=== PATIENT | female | born 1930 | race Caucasian/White ===

== ENCOUNTER → 2017-01-12 | Outpatient (CLI) | payer BC ==
[~2017-01-12] MED LIST: AMLO-110 PO; ASPI81TA28 PO; ATOR-22 PO; ATOR-24 PO; BENA1TAB53 PO; BROM0.07 OPB; CHOL100010 PO; CHOL100041 PO; CYAN10004 PO; DOCU-94 PO; DPH/ PO; FURO-85 PO; HYDC25 PO; HYDR-5688 PO; HYDR25TA4 PO; INSDGI SC; INSDGIPEN SQ; LEVO75TA33 PO; LEVO75TA5 PO; MULT-190 PO; MULTCAP98 PO; NAPR1TAB9 PO; OMEG10007 PO; POLYSOL4 OP; PRED10TA PO; ROPI0.25 PO; ROPI0.5T15 PO; ROPI1TAB PO
[2017-01-12 13:25] LABS: URINE APPEARANCE CLEAR (CLEAR); URINE BILIRUBIN NEG (NEG); URINE COLOR YELLOW; URINE EPITHELIAL CELL AUTO 0-5 /lpf (0-5); URINE NITRITE NEG (NEG); UROBILINOGEN NEG (NEG)
[2017-01-12 13:26] LABS: MANUAL MICROSCOPIC REQUIRED? NO; REVIEW REQ? NO
== END | disposition home or self-care (01) ==
LOC: C.LABSPEC 08:55
PROVIDERS: ATTEND Internal Medicine
DX: R39.9 Unspecified symptoms and signs involving the genitourinary system (principal)

== ENCOUNTER → 2017-01-21 | Outpatient (CLI) | payer BC ==
[2017-01-21 14:23] LABS: URINE APPEARANCE CLEAR (CLEAR); URINE BILIRUBIN NEG (NEG); URINE COLOR YELLOW; URINE EPITHELIAL CELL AUTO >30 /lpf (0-5); URINE NITRITE NEG (NEG); URINE PH 6.5 (4.5-7.5); URINE SPECIFIC GRAVITY 1.016 (1.000-1.030); UROBILINOGEN NEG (NEG)
[2017-01-21 14:28] LABS: MANUAL MICROSCOPIC REQUIRED? NO; REVIEW REQ? NO
== END | disposition home or self-care (01) ==
LOC: C.LABBC 11:24
PROVIDERS: ATTEND Physician Assistant Medical
DX: R39.9 Unspecified symptoms and signs involving the genitourinary system (principal)

== ENCOUNTER → 2017-02-06 | Outpatient (CLI) | payer BC ==
[2017-02-06 17:20] LABS: BASO % 0.4 %; BASO ABS # 0.03 K/uL (0-0.2); COMPLETE YES; EOS % 3.6 %; HEMATOCRIT 39.8 % (37-47); IG% 0.1 %; LYMPH % 30.7 %; LYMPH ABS # 2.49 K/uL (1.2-3.4); MEAN CELL VOLUME 95.4 fL (80-100); MEAN CORPUSCULAR HEMOGLOBIN 31.9 pg (25-34); MEAN CORPUSCULAR HGB CONC 33.4 g/dl (32-36); MEAN PLATELET VOLUME 11.2 fL (7.4-10.4); MONO % 8.4 %; NEUT % 56.8 %; PLATELET COUNT 279 K/uL (130-400); RED BLOOD COUNT 4.17 M/uL (4.2-5.4)
[2017-02-06 18:12] LABS: ALT/SGPT 31 U/L (12-78); AST/SGOT 24 U/L (15-37); BLOOD UREA NITROGEN 28 mg/dl (7-18); BUN/CREATININE RATIO 22.9 (10-20); CARBON DIOXIDE 30 mmol/L (21-32); CHLORIDE 107 mmol/L (98-107); GLUCOSE 189 mg/dl (70-99); SODIUM 145 mmol/L (136-145)
[2017-02-06 18:14] LABS: ALB/GLOB RATIO 0.9 (0.9-2); ALKALINE PHOSPHATASE 71 U/L (45-117)
[2017-02-06 18:33] LABS: CALCIUM 9.2 mg/dl (8.5-10.1)
[2017-02-07 06:07] LABS: ESTIMATED AVERAGE GLUCOSE 146 mg/dl; HA1C FLAG Normal (Normal)
== END | disposition home or self-care (01) ==
LOC: C.LABBC 14:52
PROVIDERS: ATTEND Internal Medicine Geriatric Medicine
DX: E03.9 Hypothyroidism, unspecified (principal); I10 Essential (primary) hypertension; E78.5 Hyperlipidemia, unspecified; E11.40 Type 2 diabetes mellitus with diabetic neuropathy, unspecified; G62.9 Polyneuropathy, unspecified; E55.9 Vitamin D deficiency, unspecified

== ENCOUNTER → 2017-05-09 | Outpatient (CLI) | payer BC ==
[~2017-05-09] MED LIST changes: -ATOR-22 PO; +BENA1TAB19 PO; -BENA1TAB53 PO; -CHOL100041 PO; -DOCU-94 PO; -FURO-85 PO; -HYDR-5688 PO; -HYDR25TA4 PO; -INSDGIPEN SQ; -LEVO75TA5 PO; -NAPR1TAB9 PO; -PRED10TA PO; -ROPI0.5T15 PO; -ROPI1TAB PO
[2017-05-09 16:48] LABS: BLOOD UREA NITROGEN 27 mg/dl (7-18); CALCIUM 9.1 mg/dl (8.5-10.1); CARBON DIOXIDE 29 mmol/L (21-32); CHLORIDE 108 mmol/L (98-107); GLUCOSE 87 mg/dl (70-99); POTASSIUM 4.1 mmol/L (3.5-5.1); SODIUM 142 mmol/L (136-145)
[2017-05-09 16:51] LABS: ESTIMATED AVERAGE GLUCOSE 143 mg/dl; HA1C FLAG Normal (Normal)
== END | disposition home or self-care (01) ==
LOC: C.LABBC 14:19
PROVIDERS: ATTEND Family Medicine
DX: E11.40 Type 2 diabetes mellitus with diabetic neuropathy, unspecified (principal); E03.9 Hypothyroidism, unspecified; E78.5 Hyperlipidemia, unspecified; I10 Essential (primary) hypertension

== ENCOUNTER 2017-07-18 02:20 | Emergency (ER) | payer BC ==
[~2017-07-18] VITALS: Ht 160 cm; Wt 59.3 kg
[~2017-07-18 02:20] MED LIST changes: -BENA1TAB19 PO; +BENA1TAB53 PO
[2017-07-18 02:23] VITALS: TEMP 37; Ht 160 cm; Wt 59.3 kg
[2017-07-18] MEDS ORDERED: FENTANYL CITRATE INJ 50 MCG/1 ML 2 ML VIAL IV STA (02:38)
--- NOTE | 2017-07-18 02:47 | EMERGENCY ROOM VISIT NOTE ---
History Report prepared by Sumeet: Sun Campos Under the Supervision of: Dr. Gunjan Shepard M.D. First contact with patient: 02:27 Chief Complaint: WRIST PAIN Stated Complaint: BILATERAL WRIST/HAND PAIN History of Present Illness The patient is a 86 year old female who presents to the Emergency Room with complaints of sudden bilateral wrist pain occurring shortly prior to arrival. The patient rates the pain at an 8/10. She reports that moving her wrists exacerbates the pain. She also reports having a stiff neck. The patient states that she has seen her PCP 1 month ago for this pain and that she was told to take Aleve for 2 weeks. The patient reports that she did play golf in the summer , but not recently, and also denies activities such as knitting and sewing. She states that she has insulin dependent diabetes mellitus, neuropathy, and has a history of an aortic valve replacement in November of 2015. The patient also reports that she takes blood pressure medication and is on Aspirin. Source of History: patient Onset: shortly prior to arrival Position: wrist (bilateral) Symptom Intensity: rated at an 8/10 Modifying Factors (Worsening): movement Associated Symptoms: + neck pain (stiff neck ) Review of Systems See HPI for pertinent positives & negatives. A total of 10 systems reviewed and were otherwise negative. Past Medical & Surgical Medical Problems: (1) Insulin dependent diabetes mellitus (2) Neuropathy Surgical Problems: (1) Aortic valve replaced Family History Diabetes mellitus FH: hypertension Heart disease Social History Smoking Status: Never Smoker Marital Status: Current/Historical Medications Scheduled Amlodipine (Norvasc), 5 MG PO HS Aspirin (Aspirin Ec), 81 MG PO HS Atorvastatin (Lipitor), 20 MG PO DAILY Benazepril (Lotensin), 20 MG PO DAILY Bromfenac Sodium (Ophth) (Prolensa), 1 DROP OPB QAM Cholecalciferol (Vitamin D), 3,000 INTER.UNIT PO DAILY Cyanocobalamin (Vitamin B-12 1000 Mcg), 2,000 MCG PO DAILY Diphenoxylate/Atropine (Lomotil 2.5-0.025 mg), 1 TAB PO QID Docusate Sodium (Colace), 1 CAP PO BID Hydrochlorothiazide (Hctz), 25 MG PO DAILY Insulin Glargine (Lantus Solostar), 12 UNITS SQ QAM Insulin Glargine (Lantus Solostar), 10 UNITS SQ QPM Levothyroxine Sodium (Levothyroxine Sodium), 75 MCG PO DAILY Multiple Vitamins W/ Minerals (Icaps), 1 CAP PO DAILY Ocuvite Preservision (Ocuvite Preservision), 1 TAB PO DAILY Polyethylene Glycol-Propylene (Systane), 1 DROPS OP QPM Prednisone (Prednisone), 10 MG PO DIRECTED Ropinirole (Requip), 1 MG PO QPM Ropinirole (Requip), 0.5 MG PO QAFTERNOON Scheduled PRN Hydrocodone/Acetaminophen 5MG/325MG ([place] 5MG/325MG), 1 TABLET PO Q6 PRN for Pain Allergies Coded Allergies: No Known Allergies (Unverified Allergy, Mild, 08/28/08) Physical Exam Vital Signs Date Time Temp Pulse Resp B/P (MAP) Pulse Ox O2 Delivery O2 Flow Rate FiO2 07/18/17 06:08 86 20 155/86 92 07/18/17 05:31 100 141/106 96 Room Air 07/18/17 03:51 80 138/63 96 Room Air 07/18/17 02:23 37.0 100 32 174/78 93 Room Air Physical Exam Vital signs reviewed. General: Well-appearing female, in no significant distress. HEENT: No scleral icterus, PERRLA, neck supple. Atraumatic. Cardiovascular: Systolic click, no extra sounds. Pulmonary: Clear to auscultation bilaterally, normal work of breathing. Abdomen: Soft, nontender, nondistended, positive bowel sounds. Musculoskeletal: Atraumatic, no peripheral edema. Bilateral wrists with mild swelling. Right wrist has mild erythema and swelling to the second and third MCP. Full range of motion of wrist with mild tenderness. Left wrist has mild soft tissue swelling and mild tenderness. No point tenderness, no deformity. Neurologic: Patient awake alert and oriented x 3, full strength in all 4 extremities. Cranial nerves 2 through 12 grossly intact. Skin: Warm, dry, no rash Medical Decision & Procedures ER Provider Diagnostic Interpretation: Radiology results as stated below per my review and radiologist interpretation: Bilateral Wrist X-Ray: No acute fracture. Degenerative changes noted. Mild soft tissue swelling. No dislocation. Laboratory Results 07/18/17 03:05 Red Blood Count 4.03, Mean Corpuscular Volume 92.6, Mean Corpuscular Hemoglobin 31.8, Mean Corpuscular Hemoglobin Concent 34.3, Mean Platelet Volume 10.1, Neutrophils (%) (Auto) 81.9, Lymphocytes (%) (Auto) 8.6, Monocytes (%) (Auto) 7.9, Eosinophils (%) (Auto) 1.1, Basophils (%) (Auto) 0.2, Neutrophils # (Auto) 11.57, Lymphocytes # (Auto) 1.21, Monocytes # (Auto) 1.12, Eosinophils # (Auto) 0.15, Basophils # (Auto) 0.03 07/18/17 03:05 Test 07/18/17 03:05 White Blood Count 14.12 K/uL (4.8-10.8) Red Blood Count 4.03 M/uL (4.2-5.4) Hemoglobin 12.8 g/dL (12.0-16.0) Hematocrit 37.3 % (37-47) Mean Corpuscular Volume 92.6 fL (80-100) Mean Corpuscular Hemoglobin 31.8 pg (25-34) Mean Corpuscular Hemoglobin Concent 34.3 g/dl (32-36) Platelet Count 345 K/uL (130-400) Mean Platelet Volume 10.1 fL (7.4-10.4) Neutrophils (%) (Auto) 81.9 % Lymphocytes (%) (Auto) 8.6 % Monocytes (%) (Auto) 7.9 % Eosinophils (%) (Auto) 1.1 % Basophils (%) (Auto) 0.2 % Neutrophils # (Auto) 11.57 K/uL (1.4-6.5) Lymphocytes # (Auto) 1.21 K/uL (1.2-3.4) Monocytes # (Auto) 1.12 K/uL (0.11-0.59) Eosinophils # (Auto) 0.15 K/uL (0-0.5) Basophils # (Auto) 0.03 K/uL (0-0.2) RDW Standard Deviation 48.3 fL (36.4-46.3) RDW Coefficient of Variation 14.2 % (11.5-14.5) Immature Granulocyte % (Auto) 0.3 % Immature Granulocyte # (Auto) 0.04 K/uL (0.00-0.02) Erythrocyte Sedimentation Rate 42 mm/hr (0-21) Anion Gap 9.0 mmol/L (3-11) Est Creatinine Clear Calc Drug Dose 38.2 ml/min Estimated GFR () 68.5 Estimated GFR (Non- 59.1 BUN/Creatinine Ratio 24.3 (10-20) Uric Acid 5.9 mg/dl (2.6-7.2) Calcium Level 8.9 mg/dl (8.5-10.1) Magnesium Level 1.7 mg/dl (1.8-2.4) Total Bilirubin 0.5 mg/dl (0.2-1) Direct Bilirubin 0.1 mg/dl (0-0.2) Aspartate Amino Transf (AST/SGOT) 23 U/L (15-37) Alanine Aminotransferase (ALT/SGPT) 30 U/L (12-78) Alkaline Phosphatase 84 U/L (45-117) C-Reactive Protein 1.57 mg/dl (0-0.29) Total Protein 7.0 gm/dl (6.4-8.2) Albumin 3.3 gm/dl (3.4-5.0) Lyme Disease IgG Antibody NEG (NEG) Lyme Disease IgM Antibody NEG (NEG) Laboratory results per my review. Medications Administered Medications (Trade) Dose Ordered Sig/David Route Start Time Stop Time Status Last Admin Dose Admin Fentanyl Citrate (Fentanyl Inj) 25 mcg NOW STAT IV 07/18/17 02:38 07/18/17 02:41 DC 07/18/17 03:11 25 MCG Methylprednisolone Sodium Succinate (Solu-Medrol IV) 60 mg NOW STAT IV 07/18/17 03:41 07/18/17 03:42 DC 07/18/17 03:48 60 MG Acetaminophen/ Hydrocodone Bitart ([place] 5/325 Tab) 1 tab NOW STAT PO 07/18/17 05:21 07/18/17 05:22 DC 07/18/17 05:29 1 TAB Acetaminophen/ Hydrocodone Bitart ([place] 5/325mg Home Pack) 1 homepack UD ONCE PO 07/18/17 05:30 07/18/17 05:31 DC 07/18/17 05:29 1 HOMEPACK ED Course 0236: Past medical records reviewed. The patient was evaluated in room A2. A complete history and physical examination was performed. 0238: Ordered Fentanyl Citrate 25 mcg IV. 0341: Ordered Methylprednisolone Sodium Succinate 60 mg IV. 0521: Ordered Hydrocodone Bitart/Acetaminophen 1 tab PO. 0530: Ordered Hydrocodone Bitart/Acetaminophen 1 homepack PO. 0540: Upon reevaluation, the patient appeared to have improvement of her symptoms. I discussed findings with her. She verbalized agreement of the treatment plan. She was discharged home. Medical Decision Differentials include: gout, lyme disease, trauma, fracture, cellulitis, septic joint, autoimmune disorder, and medication reaction. This patient was evaluated and appeared to be in no significant distress. Physical examination reveals mildly swollen bilateral wrists. Patient has some discomfort with range of motion. There is no traumatic injury. X-rays to my interpretation are negative for acute process. Laboratory work reveals a mildly elevated WBC, sedimentation rate and CRP. I do suspect this is a rheumatologic process. The patient is diabetic and the risks and benefits of steroid therapy were discussed. Patient will monitor her glucose carefully. Patient was given 60 mg of IV Solu-Medrol. She did respond well to 25 g of fentanyl. The patient complained of more pain shortly thereafter and was given a [place] tablet. Patient will be discharged on a short course of lower dose prednisone taper and [place] to be used as needed. Patient has a follow-up with her PCP in several days. She will return to the ER for worsening of symptoms, fever or any medical concerns. Medication Reconcilliation Current Medication List: was personally reviewed by me Blood Pressure Screening Patient's blood pressure: Elevated blood pressure Blood pressure disposition: Elevated BP felt to be situational Impression Primary Impression: Pain in both wrists Scribe Attestation The scribe's documentation has been prepared under my direction and personally reviewed by me in its entirety. I confirm that the note above accurately reflects all work, treatment, procedures, and medical decision making performed by me. Departure Information Dispostion Home / Self-Care Prescriptions Docusate Sodium (COLACE) 100 Mg Cap 1 CAP PO BID for 30 Days, #60 CAP 2 Refills Prov: Gunjan Shepard M.D. 07/18/17 Hydrocodone/Acetaminophen 5MG/325MG ([place] 5MG/325MG) Tab 1 TABLET PO Q6 Y for Pain, #14 TAB Prov: Gunjan Shepard M.D. 07/18/17 Prednisone (Prednisone) 10 Mg Tab 10 MG PO DIRECTED, #12 TAB 20 mg daily for 4 days, 10 mg daily for 3 days, 5 mg daily for 2 days. Prov: Gunjan Shepard M.D. 07/18/17 Referrals Lottie Winn MD (PCP) Forms HOME CARE DOCUMENTATION FORM, IMPORTANT VISIT INFORMATION, WORK / SCHOOL INSTRUCTIONS Patient Instructions My [facility] Additional Instructions Diagnosis: Bilateral wrist pain Prednisone 20 mg daily for 4 days, 10 mg daily for 3 days, 5 mg daily for 2 days. [place] one tablet every 6 hours as needed for severe pain. Do not drive or take Tylenol with this medication. Colace 100 mg twice daily as needed for stool softening while on [place]. Follow-up with Dr. Winn on Saturday as scheduled. Return to the ER for worsening of symptoms or any medical concerns.
[2017-07-18] MEDS ORDERED: LEVO75TA5 PO (03:14)
[2017-07-18 03:16] LABS: BASO % 0.2 %; BASO ABS # 0.03 K/uL (0-0.2); COMPLETE YES; EOS % 1.1 %; HEMATOCRIT 37.3 % (37-47); IG% 0.3 %; LYMPH % 8.6 %; LYMPH ABS # 1.21 K/uL (1.2-3.4); MEAN CELL VOLUME 92.6 fL (80-100); MEAN CORPUSCULAR HEMOGLOBIN 31.8 pg (25-34); MEAN CORPUSCULAR HGB CONC 34.3 g/dl (32-36); MEAN PLATELET VOLUME 10.1 fL (7.4-10.4); MONO % 7.9 %; NEUT % 81.9 %; PLATELET COUNT 345 K/uL (130-400); RED BLOOD COUNT 4.03 M/uL (4.2-5.4); WHITE BLOOD COUNT 14.12 K/uL (4.8-10.8)
[2017-07-18] MEDS ORDERED: HYDR25TA4 PO (03:16)
[2017-07-18] MEDS ORDERED: INSDGIPEN SQ ×2 (03:20→03:23)
[2017-07-18] MEDS ORDERED: ATOR-22 PO (03:29)
[2017-07-18 03:36] LABS: BUN/CREATININE RATIO 24.3 (10-20); CALCIUM 8.9 mg/dl (8.5-10.1); CREATININE 0.89 mg/dl (0.60-1.20); MAGNESIUM 1.7 mg/dl (1.8-2.4); POTASSIUM 3.9 mmol/L (3.5-5.1)
[2017-07-18 03:39] LABS: C-REACTIVE PROTEIN 1.57 mg/dl (0-0.29)
[2017-07-18] MEDS ORDERED: METHYLPREDNISOLONE 125 MG VIAL IV STA (03:41)
[2017-07-18 03:44] LABS: URIC ACID 5.9 mg/dl (2.6-7.2)
[2017-07-18] MEDS ORDERED: ROPI1TAB PO (03:53)
[2017-07-18] MEDS ORDERED: ROPI0.5T15 PO (03:54)
[2017-07-18 04:22] LABS: LYME DISEASE AB IGG NEG (NEG); LYME DISEASE AB IGM NEG (NEG)
[2017-07-18] MEDS ORDERED: HYDROCODONE/ACETAMOPHEN 5/325MG TAB PO STA (05:21)
[2017-07-18] MEDS ORDERED: NORCO 5/325MG HOME PACK PO ONE (05:30)
[2017-07-18] MEDS ORDERED: PRED10TA PO (05:50)
[2017-07-18] MEDS ORDERED: HYDR-5688 PO (05:50)
[2017-07-18] MEDS ORDERED: DOCU-94 PO (05:52)
[2017-07-18 06:08] VITALS: BP 155/86; PULSE 86; O2SAT 92
--- NOTE | 2017-07-18 06:56 | DIAGNOSTIC IMAGING REPORT ---
R WRIST MIN 3 VIEWS ROUTINE CLINICAL HISTORY: Right wrist pain COMPARISON: None. DISCUSSION: No acute fractures are visualized. There are moderate osteoarthritic changes the level the first carpal metacarpal joint. There is a small bony erosion involving the lunate. IMPRESSION: 1. Osteopenia 2. No acute fractures 3. Moderate arthritic changes at the level the first carpometacarpal joint 4. Small erosion involving the lunate Electronically signed by: Josh Simon M.D. 07/18/2017 6:54 AM Dictated Date/Time: 07/18/2017 6:53 AM
--- NOTE | 2017-07-18 07:08 | DIAGNOSTIC IMAGING REPORT ---
LEFT WRIST 4 VIEWS CLINICAL HISTORY: Left wrist pain. No reported history of trauma. FINDINGS: 4 views of left wrist are obtained. No prior studies are available for comparison at the time of dictation. The skeletal structures are osteopenic. No fracture is seen. There is mild narrowing at the radiocarpal articulation. Advanced osteoarthritic change is seen at the first carpometacarpal joint where there is bony sclerosis, overgrowth, subchondral cyst formation, and mild subluxation. Arthritic change is also seen at the second carpometacarpal joint. There is faint chondrocalcinosis of the triangular fibrocartilage. Soft tissue swelling is present around the wrist. No erosive disease is seen. IMPRESSION: 1. Soft tissue edema with no acute bony abnormality identified in the left wrist. 2. Osteopenia and arthritic change as above. Electronically signed by: Mook Carpio M.D. 07/18/2017 7:06 AM Dictated Date/Time: 07/18/2017 7:05 AM
== END 2017-07-18 06:10 | disposition home or self-care (01) ==
LOC: EDBD 02:20 → C.EDA 02:22
DX: M25.531 Pain in right wrist (principal); M25.532 Pain in left wrist; E11.40 Type 2 diabetes mellitus with diabetic neuropathy, unspecified; Z95.2 Presence of prosthetic heart valve; Z83.3 Family history of diabetes mellitus; Z82.49 Family history of ischemic heart disease and other diseases of the circulatory system; Z79.4 Long term (current) use of insulin; Z79.82 Long term (current) use of aspirin

== ENCOUNTER 2017-07-22 09:00 | Inpatient (IN) | payer BC, OTHER ==
[~2017-07-22] VITALS: Ht 160 cm; Wt 57.0 kg
[~2017-07-22 09:00] MED LIST changes: +ATOR-22 PO; -ATOR-24 PO; +DOCU-94 PO; -HYDC25 PO; +HYDR-5688 PO; +HYDR25TA4 PO; -INSDGI SC; +INSDGIPEN SQ; -LEVO75TA33 PO; +LEVO75TA5 PO; -OMEG10007 PO; +PRED10TA PO; -ROPI0.25 PO; +ROPI0.5T15 PO; +ROPI1TAB PO
[2017-07-22 10:09] LABS: BASO % 0.1 %; BASO ABS # 0.01 K/uL (0-0.2); COMPLETE YES; IG% 0.2 %; LYMPH % 26.6 %; LYMPH ABS # 2.86 K/uL (1.2-3.4); MEAN CELL VOLUME 93.3 fL (80-100); MEAN CORPUSCULAR HEMOGLOBIN 30.9 pg (25-34); MEAN CORPUSCULAR HGB CONC 33.1 g/dl (32-36); MEAN PLATELET VOLUME 10.4 fL (7.4-10.4); MONO % 9.7 %; NEUT % 61.4 %; PLATELET COUNT 359 K/uL (130-400); RED BLOOD COUNT 3.75 M/uL (4.2-5.4); WHITE BLOOD COUNT 10.76 K/uL (4.8-10.8)
[2017-07-22 10:27] LABS: BUN/CREATININE RATIO 36.2 (10-20); CALCIUM 8.8 mg/dl (8.5-10.1); CREATININE 1.15 mg/dl (0.60-1.20); POTASSIUM 3.9 mmol/L (3.5-5.1)
[2017-07-22 10:35] LABS: ALB/GLOB RATIO 0.9 (0.9-2)
[2017-07-22] MEDS ORDERED: OPTIRAY 320 IV PRN (10:45)
[2017-07-22] MEDS ORDERED: ASPIRIN 81 MG CHEW PO STA (10:53)
[2017-07-22] MEDS ORDERED: CHOL100041 PO (11:09)
[2017-07-22] MEDS ORDERED: NAPR1TAB9 PO (11:10)
--- NOTE | 2017-07-22 11:27 | DIAGNOSTIC IMAGING REPORT ---
CT ANGIOGRAPHY OF THE CHEST, PULMONARY EMBOLUS PROTOCOL CLINICAL HISTORY: Shortness of breath, chest pain and elevated d-dimer. COMPARISON STUDY: No previous studies for comparison. TECHNIQUE: Following IV administration of 93 mL of Optiray-320, helical axial images of the chest were obtained utilizing the pulmonary embolus protocol. Maximal intensity projections and sagittal and coronal reformats were viewed on an independent 3D workstation. IV contrast was administered without complication. A dose lowering technique was utilized adhering to the principles of ALARA. CT DOSE: 234.54 mGy.cm FINDINGS: No pulmonary emboli are identified. Prosthetic aortic valve is noted. There is no evidence of a ascending thoracic aortic dissection. Descending thoracic aorta is suboptimally opacified. Heart is mildly enlarged. There is no pericardial effusion. Note is made of moderate bilateral pleural effusions. Associated bilateral lower lobe opacities likely reflect atelectasis or pulmonary edema. Interlobular septal thickening indicates pulmonary edema. Note is made of a lobulated 2.1 x 1.8 cm circumscribed right middle lobe nodule shown on axial image 152 of 298. Several calcifications are noted within this nodule. Bony thorax and upper abdomen are unremarkable. There is a small hiatal hernia. IMPRESSION: 1. No pulmonary emboli identified. 2. Findings consistent with moderate pulmonary edema. Moderate bilateral pleural effusions. 3. 2.1 x 1.8 cm lobulated circumscribed middle lobe nodule which contains several calcifications. This is indeterminate although probably benign. This could reflect a hamartoma however, a follow-up chest CT in 3 months is recommended to ensure stability. Electronically signed by: Froylan George M.D. 07/22/2017 11:26 AM Dictated Date/Time: 07/22/2017 11:17 AM
[2017-07-22] MEDS ORDERED: NITROGLYCERIN 0.4 MG SL PER TAB CHARGE SL PRN (11:45)
[2017-07-22] MEDS ORDERED: ACETAMINOPHEN 325 MG TAB PO PRN (11:45)
[2017-07-22] MEDS ORDERED: ALUMINUM/MAGNESIUM/SIMETH (MAALOX MAX) 30 ML UDC PO PRN (11:45)
[2017-07-22] MEDS ORDERED: ROPINIROLE HCL 1 MG TAB PO PRN (11:45)
[2017-07-22] MEDS ORDERED: MoRPHine SULFATE 2 MG/ML CARP IV PRN (11:45)
[2017-07-22] MEDS ORDERED: ONDANSETRON INJ 2 MG/ML 2 ML VIAL IV PRN (11:45)
[2017-07-22] MEDS ORDERED: HYDROCODONE/ACETAMOPHEN 5/325MG TAB PO PRN (11:45)
[2017-07-22] MEDS ORDERED: FUROSEMIDE 40 MG/4 ML VIAL IV STA (12:10)
--- NOTE | 2017-07-22 12:10 | History and Physical ---
History & Physical Date & Time of Service: Jul 22, 2017 at 12:04 Chief Complaint: Shortness Of Breath Primary Care Physician: Lottie Winn MD History of Present Illness Patient is a 86-year-old female who had a TAVR one year ago presents with progressive shortness of breath, no weight gain and on CT angiogram was found to have congestive heart failure plus pleural effusions. The patient states that about 2 weeks ago she developed wrist pain for which she was seen in the ER started on a prednisone taper, over the weekend she ate meals provided by her local catholic and over the last one day became progressively short of breath worsened at night she's had no associated chest pain or lower extremity edema and not weighing herself daily has not gained more than 1 pound. She was hypoxic on presentation Past Medical/Surgical History Medical Problems: (1) Insulin dependent diabetes mellitus Status: Chronic (2) Neuropathy Status: Chronic Surgical Problems: (1) Aortic valve replaced Status: Resolved Family History Diabetes mellitus FH: hypertension Heart disease Social History Smoking Status: Former Smoker Marital Status: Housing status: lives alone Multi-Drug Resistant Organisms History of MDRO: No Allergies Coded Allergies: No Known Allergies (Unverified , 07/22/17) Home Medications Scheduled Amlodipine (Norvasc), 5 MG PO HS Aspirin (Aspirin Ec), 81 MG PO HS Atorvastatin (Lipitor), 20 MG PO HS Benazepril (Lotensin), 20 MG PO DAILY Bromfenac Sodium (Ophth) (Prolensa), 1 DROP OPB QAM Cholecalciferol (D 1000), 3,000 UNITS PO DAILY Cyanocobalamin (Vitamin B-12 1000 Mcg), 2,000 MCG PO DAILY Diphenoxylate/Atropine (Lomotil 2.5-0.025 mg), 1 TAB PO QID Docusate Sodium (Colace), 1 CAP PO BID Hydrochlorothiazide (Hctz), 25 MG PO DAILY Insulin Glargine (Lantus Solostar), 12 UNITS SQ QAM Insulin Glargine (Lantus Solostar), 10 UNITS SQ QPM Levothyroxine Sodium (Levothyroxine Sodium), 75 MCG PO DAILY Multiple Vitamins W/ Minerals (Icaps), 1 CAP PO DAILY Naproxen (Aleve), 220 MG PO BID Ocuvite Preservision (Ocuvite Preservision), 1 TAB PO DAILY Polyethylene Glycol-Propylene (Systane), 1 DROPS OP QPM Prednisone (Prednisone), 10 MG PO DIRECTED Ropinirole (Requip), 1 MG PO QPM Ropinirole (Requip), 0.5 MG PO QAFTERNOON Scheduled PRN Hydrocodone/Acetaminophen 5MG/325MG ([place] 5MG/325MG), 1 TABLET PO Q6 PRN for Pain Review of Systems ROS: well nourished well developed, COLON No double vision blurry vision No problems with speech or swallowing No palpitations, chest pain or pressure Over the last 2 weeks she has had a "cold" productive of occasional sputum she' s been more short of breath and having some PN DD No abdominal pain nausea vomiting she has chronic diarrhea but no changes in appetite or weight No burning urine urine frequency or changes in color She did have focal joint pain in her wrist but this is improved with prednisone No skin rashes or oral lesions No unusual bruising or bleeding No focused back pain or numbness or loss of strength No changes in memory or confusion Physical Exam Vital Signs Date Time Temp Pulse Resp B/P (MAP) Pulse Ox O2 Delivery O2 Flow Rate FiO2 07/22/17 11:09 94 20 176/73 94 Nasal Cannula 2.0 07/22/17 10:22 95 20 150/95 92 Nasal Cannula 2.0 07/22/17 09:18 92 Nasal Cannula 2.0 07/22/17 09:17 92 Nasal Cannula 2.0 07/22/17 09:12 102 07/22/17 09:10 36.4 103 24 155/82 86 Room Air 07/22/17 09:10 Room Air General Appearance: WD/WN, no apparent distress Head: normocephalic, atraumatic Eyes: PERRL, EOMI Neck: supple, no JVD Respiratory/Chest: + respiratory distress, + decreased breath sounds, + rales Cardiovascular: regular rate, rhythm, + systolic murmur Abdomen/GI: normal bowel sounds, non tender, soft Back: no CVA tenderness, no muscle spasm, normal range of motion Extremities/Musculoskelatal: no pedal edema, normal range of motion Neurologic/Psych: alert, oriented x 3 Skin: normal color, warm/dry, no rash Diagnostics Laboratory Results Results Past 24 Hours Test 07/22/17 09:52 Range/Units White Blood Count 10.76 4.8-10.8 K/uL Red Blood Count 3.75 4.2-5.4 M/uL Hemoglobin 11.6 12.0-16.0 g/dL Hematocrit 35.0 37-47 % Mean Corpuscular Volume 93.3 80-100 fL Mean Corpuscular Hemoglobin 30.9 25-34 pg Mean Corpuscular Hemoglobin Concent 33.1 32-36 g/dl Platelet Count 359 130-400 K/uL Mean Platelet Volume 10.4 7.4-10.4 fL Neutrophils (%) (Auto) 61.4 % Lymphocytes (%) (Auto) 26.6 % Monocytes (%) (Auto) 9.7 % Eosinophils (%) (Auto) 2.0 % Basophils (%) (Auto) 0.1 % Neutrophils # (Auto) 6.61 1.4-6.5 K/uL Lymphocytes # (Auto) 2.86 1.2-3.4 K/uL Monocytes # (Auto) 1.04 0.11-0.59 K/uL Eosinophils # (Auto) 0.22 0-0.5 K/uL Basophils # (Auto) 0.01 0-0.2 K/uL RDW Standard Deviation 51.2 36.4-46.3 fL RDW Coefficient of Variation 15.0 11.5-14.5 % Immature Granulocyte % (Auto) 0.2 % Immature Granulocyte # (Auto) 0.02 0.00-0.02 K/uL D-Dimer 1590 0-500 ug/L FEU Sodium Level 137 136-145 mmol/L Potassium Level 3.9 3.5-5.1 mmol/L Chloride Level 103 98-107 mmol/L Carbon Dioxide Level 23 21-32 mmol/L Anion Gap 11.0 3-11 mmol/L Blood Urea Nitrogen 42 7-18 mg/dl Creatinine 1.15 0.60-1.20 mg/dl Est Creatinine Clear Calc Drug Dose 29.6 ml/min Estimated GFR () 50.2 Estimated GFR (Non- 43.4 BUN/Creatinine Ratio 36.2 10-20 Random Glucose 223 70-99 mg/dl Calcium Level 8.8 8.5-10.1 mg/dl Total Bilirubin 0.3 0.2-1 mg/dl Aspartate Amino Transf (AST/SGOT) 15 15-37 U/L Alanine Aminotransferase (ALT/SGPT) 30 12-78 U/L Alkaline Phosphatase 68 45-117 U/L Troponin I 0.275 0-0.045 ng/ml Total Protein 6.7 6.4-8.2 gm/dl Albumin 3.1 3.4-5.0 gm/dl Globulin 3.6 2.5-4.0 gm/dl Albumin/Globulin Ratio 0.9 0.9-[address] scan shows congestive failure pleural effusions and a right middle lobe lobulated lesion Elevated d-dimer other (left bundle branch block) Impression Assessment and Plan 86-year-old female here with acute diastolic heart failure, abnormal CT chest and pleural effusions, elevated troponin Acute diastolic heart failure, will employ IV furosemide will hold her Dyazide watch I's and O's cardiology consult echocardiogram continue GIULIANA inhibitor Elevated troponin question of supply demand versus heart failure we'll trend enzymes her left bundle branch block is chronic Pleural effusions and lung mass, will ask Dr. Cline's opinion if effusion should be analyzed given lung mass would likely consider this may also consider if symptoms improve after diuresis to do this as an outpatient Diabetes we'll have on basal bolus diabetic diet and follow be BSG's Hypothyroidism appears euthyroid continue Synthroid DVT prevention is Lovenox VTE Prophylaxis VTE Risk Assessment Done? Y/N: Yes Risk Level: Moderate
[2017-07-22] MEDS ORDERED: DIPHENOXYLATE/ATROPINE 2.5/0.025MG TAB PO PRN (13:00)
[2017-07-22] MEDS ORDERED: MAGNESIUM SULFATE 1GM / D5W 1 GM BAG ONE (13:48)
[2017-07-22] MEDS ORDERED: GLUCAGON FOR INJ 1 MG VIAL SQ PRN (14:00)
[2017-07-22] MEDS ORDERED: GLUCOSE 10 TABS/TUBE PO PRN (14:00)
[2017-07-22] MEDS ORDERED: DEXTROSE 50% 50 ML SYR IV PRN (14:00)
[2017-07-22] MEDS ORDERED: GLUCOSE 40% GEL 15 GM TUBE PO PRN (14:00)
[2017-07-22 14:24] VITALS: BP 153/75; PULSE 78; TEMP 36.3; O2SAT 95; Ht 160 cm; Wt 57.0 kg
--- NOTE | 2017-07-22 14:50 | EMERGENCY ROOM VISIT NOTE ---
History Report prepared by Sumeet: Betty Mcadams Under the Supervision of: Dr. Hernandez De Jesus D.O. First contact with patient: 09:25 Chief Complaint: SHORTNESS OF BREATH Stated Complaint: SHORTNESS OF BREATH Nursing Triage Summary: pt has had upper resp infection for past 2 weeks yesterday s/s worsened pt awoke today feeling short of breath pt room air sats 85%, pt had expiratory and inspiratory wheezes pt given albuterol by ems which helped no swelling in legs History of Present Illness The patient is an 86 year old female who presents to the Emergency Room with complaints of persistent respiratory problems that began yesterday. The patient states that she has a history of a heart surgery in November of 2015. She states that she has had problems since then. The patient states that yesterday she noticed difficulty breathing that began around midday. She states that this morning her symptoms worsened, noting that she cold not take a deep breath. The patient reports a recent cough and cold, noting that she occasionally brings up yellow sputum. She states that those symptoms had been getting better. She denies any history of asthma or COPD. The patient states that she was a smoker for short period of time. She denies any history of heart failure. The patient denies being on any blood thinners. Pt denies headache, change in vision, fevers, chest pain, nausea, vomiting, diarrhea, swelling of lower extremities, recent weight gain, pain with urination, and melena. Source of History: patient Onset: yesterday Position: other (global) Quality: other (respiratory problems) Timing: other (persistent) Associated Symptoms: + cough, + SOB Note: Associated symptoms: difficulty breathing Review of Systems See HPI for pertinent positives & negatives. A total of 10 systems reviewed and were otherwise negative. 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) Family History Diabetes mellitus FH: hypertension Heart disease Social History Smoking Status: Former Smoker Marital Status: Current/Historical Medications Scheduled Amlodipine (Norvasc), 5 MG PO HS Aspirin (Aspirin Ec), 81 MG PO HS Atorvastatin (Lipitor), 20 MG PO HS Benazepril (Lotensin), 20 MG PO DAILY Bromfenac Sodium (Ophth) (Prolensa), 1 DROP OPB QAM Cholecalciferol (D 1000), 3,000 UNITS PO DAILY Cyanocobalamin (Vitamin B-12 1000 Mcg), 2,000 MCG PO DAILY Diphenoxylate/Atropine (Lomotil 2.5-0.025 mg), 1 TAB PO QID Docusate Sodium (Colace), 1 CAP PO BID Hydrochlorothiazide (Hctz), 25 MG PO DAILY Insulin Glargine (Lantus Solostar), 12 UNITS SQ QAM Insulin Glargine (Lantus Solostar), 10 UNITS SQ QPM Levothyroxine Sodium (Levothyroxine Sodium), 75 MCG PO DAILY Multiple Vitamins W/ Minerals (Icaps), 1 CAP PO DAILY Naproxen (Aleve), 220 MG PO BID Ocuvite Preservision (Ocuvite Preservision), 1 TAB PO DAILY Polyethylene Glycol-Propylene (Systane), 1 DROPS OP QPM Prednisone (Prednisone), 10 MG PO DIRECTED Ropinirole (Requip), 1 MG PO QPM Ropinirole (Requip), 0.5 MG PO QAFTERNOON Scheduled PRN Hydrocodone/Acetaminophen 5MG/325MG (Rossiter 5MG/325MG), 1 TABLET PO Q6 PRN for Pain Allergies Coded Allergies: No Known Allergies (Unverified , 07/22/17) Physical Exam Vital Signs Date Time Temp Pulse Resp B/P (MAP) Pulse Ox O2 Delivery O2 Flow Rate FiO2 07/22/17 11:09 94 20 176/73 94 Nasal Cannula 2.0 07/22/17 10:22 95 20 150/95 92 Nasal Cannula 2.0 07/22/17 09:18 92 Nasal Cannula 2.0 07/22/17 09:17 92 Nasal Cannula 2.0 07/22/17 09:12 102 07/22/17 09:10 36.4 103 24 155/82 86 Room Air 07/22/17 09:10 Room Air Physical Exam GENERAL: Sitting up in bed, on nasal cannula oxygen, talking in full sentences alert, no distress, non-toxic EYE EXAM: normal conjunctiva. PERRL and EOM's grossly intact. OROPHARYNX: no exudate, no erythema, lips, buccal mucosa, and tongue normal and mucous membranes are moist NECK: supple, no nuchal rigidity, no adenopathy, non-tender, no JVD LUNGS: Faint rhonchi in bilateral bases. Normal chest wall mechanics HEART: Audible click, S1 normal and S2 normal ABDOMEN: abdomen soft, non-tender, normo-active bowel sounds, no masses, no rebound or guarding. BACK: Back is symmetrical on inspection and there is no deformity, no midline tenderness, no CVA tenderness. SKIN: no rashes and no bruising UPPER EXTREMITIES: upper extremities are grossly normal. Pulses equal bilaterally LOWER EXTREMITIES: No pitting edema. Calves are equal bilaterally NEURO EXAM: Normal sensorium, cranial nerves II-XII grossly intact, normal speech, no gross weakness of arms, no gross weakness of legs. Medical Decision & Procedures ER Provider Diagnostic Interpretation: Radiology results as stated below per my review and the radiologist's interpretation: CT ANGIOGRAPHY OF THE CHEST, PULMONARY EMBOLUS PROTOCOL CLINICAL HISTORY: Shortness of breath, chest pain and elevated d-dimer. COMPARISON STUDY: No previous studies for comparison. TECHNIQUE: Following IV administration of 93 mL of Optiray-320, helical axial images of the chest were obtained utilizing the pulmonary embolus protocol. Maximal intensity projections and sagittal and coronal reformats were viewed on an independent 3D workstation. IV contrast was administered without complication. A dose lowering technique was utilized adhering to the principles of ALARA. CT DOSE: 234.54 mGy.cm FINDINGS: No pulmonary emboli are identified. Prosthetic aortic valve is noted. There is no evidence of a ascending thoracic aortic dissection. Descending thoracic aorta is suboptimally opacified. Heart is mildly enlarged. There is no pericardial effusion. Note is made of moderate bilateral pleural effusions. Associated bilateral lower lobe opacities likely reflect atelectasis or pulmonary edema. Interlobular septal thickening indicates pulmonary edema. Note is made of a lobulated 2.1 x 1.8 cm circumscribed right middle lobe nodule shown on axial image 152 of 298. Several calcifications are noted within this nodule. Bony thorax and upper abdomen are unremarkable. There is a small hiatal hernia. IMPRESSION: 1. No pulmonary emboli identified. 2. Findings consistent with moderate pulmonary edema. Moderate bilateral pleural effusions. 3. 2.1 x 1.8 cm lobulated circumscribed middle lobe nodule which contains several calcifications. This is indeterminate although probably benign. This could reflect a hamartoma however, a follow-up chest CT in 3 months is recommended to ensure stability. Electronically signed by: Froylan George M.D. 07/22/2017 11:26 AM Dictated Date/Time: 07/22/2017 11:17 AM Laboratory Results 07/22/17 09:52 Red Blood Count 3.75, Mean Corpuscular Volume 93.3, Mean Corpuscular Hemoglobin 30.9, Mean Corpuscular Hemoglobin Concent 33.1, Mean Platelet Volume 10.4, Neutrophils (%) (Auto) 61.4, Lymphocytes (%) (Auto) 26.6, Monocytes (%) (Auto) 9.7, Eosinophils (%) (Auto) 2.0, Basophils (%) (Auto) 0.1, Neutrophils # (Auto) 6.61, Lymphocytes # (Auto) 2.86, Monocytes # (Auto) 1.04, Eosinophils # (Auto) 0.22, Basophils # (Auto) 0.01 07/22/17 09:52 Test 07/22/17 09:52 White Blood Count 10.76 K/uL (4.8-10.8) Red Blood Count 3.75 M/uL (4.2-5.4) Hemoglobin 11.6 g/dL (12.0-16.0) Hematocrit 35.0 % (37-47) Mean Corpuscular Volume 93.3 fL (80-100) Mean Corpuscular Hemoglobin 30.9 pg (25-34) Mean Corpuscular Hemoglobin Concent 33.1 g/dl (32-36) Platelet Count 359 K/uL (130-400) Mean Platelet Volume 10.4 fL (7.4-10.4) Neutrophils (%) (Auto) 61.4 % Lymphocytes (%) (Auto) 26.6 % Monocytes (%) (Auto) 9.7 % Eosinophils (%) (Auto) 2.0 % Basophils (%) (Auto) 0.1 % Neutrophils # (Auto) 6.61 K/uL (1.4-6.5) Lymphocytes # (Auto) 2.86 K/uL (1.2-3.4) Monocytes # (Auto) 1.04 K/uL (0.11-0.59) Eosinophils # (Auto) 0.22 K/uL (0-0.5) Basophils # (Auto) 0.01 K/uL (0-0.2) RDW Standard Deviation 51.2 fL (36.4-46.3) RDW Coefficient of Variation 15.0 % (11.5-14.5) Immature Granulocyte % (Auto) 0.2 % Immature Granulocyte # (Auto) 0.02 K/uL (0.00-0.02) D-Dimer 1590 ug/L FEU (0-500) Anion Gap 11.0 mmol/L (3-11) Est Creatinine Clear Calc Drug Dose 29.6 ml/min Estimated GFR () 50.2 Estimated GFR (Non- 43.4 BUN/Creatinine Ratio 36.2 (10-20) Calcium Level 8.8 mg/dl (8.5-10.1) Total Bilirubin 0.3 mg/dl (0.2-1) Aspartate Amino Transf (AST/SGOT) 15 U/L (15-37) Alanine Aminotransferase (ALT/SGPT) 30 U/L (12-78) Alkaline Phosphatase 68 U/L (45-117) Troponin I 0.275 ng/ml (0-0.045) Total Protein 6.7 gm/dl (6.4-8.2) Albumin 3.1 gm/dl (3.4-5.0) Globulin 3.6 gm/dl (2.5-4.0) Albumin/Globulin Ratio 0.9 (0.9-2) Laboratory results per my review. Medications Administered Medications (Trade) Dose Ordered Sig/David Route Start Time Stop Time Status Last Admin Dose Admin Aspirin (Aspirin Chew) 324 mg NOW STAT PO 07/22/17 10:53 07/22/17 10:54 DC 07/22/17 11:06 324 MG ECG Indication: SOB/dyspnea Rate (beats per minute): 98 Rhythm: sinus rhythm Findings: LBBB, ST depression (lateral and high lateral), left axis deviation ED Course ED COURSE: Vital signs were reviewed and showed hypoxic and tachycardic The patients medical record was reviewed The above diagnostic studies were performed and reviewed. ED treatments and interventions as stated above. 0928: The patient was evaluated in room A10. A complete history and physical examination was performed. 1029: I reevaluated the patient and updated her at this time. She will have a CT scan of her chest. 1053: Ordered Aspirin 324 mg PO. 1131: Upon reevaluation, the patient is resting.I discussed my findings with the patient and she understands and agrees with the treatment plan. Based on the patients age, coexisting illnesses, exam and lab findings the decision to treat as an inpatient was made. The patient remained stable while under my care. The patient will be evaluated for further management. I discussed the patients case with RADHA Garduno. He is going to evaluate the patient for further treatment. 1136: I reevaluated the patient and she is resting. I updated her at this time. Medical Decision Differential diagnoses includes but is not limited to pneumonia, bronchitis, COPD/Asthma exacerbation, pneumothorax, pulmonary embolism, congestive heart failure, acute coronary syndrome. Patient is an 86-year-old female who presents to ER for shortness breath which has been present for the past 2 days. Previous aortic valve replacement. Complaining of improving upper respiratory symptoms. CBC was unremarkable. BMP benign. Troponin was elevated at 2.75. With her hypoxia and elevated troponin CT PE was performed but was negative. She does have a lobulated middle lobe nodule. She also has significant pulmonary edema. I do believe this is consistent most likely with CHF and a question of the origin of this is ACS although she complains of no chest pain or shortness of breath currently. Medication Reconcilliation Current Medication List: was personally reviewed by me Blood Pressure Screening Patient's blood pressure: Normal blood pressure Blood pressure disposition: Did not require urgent referral Consults Time Called: 1129 Consulting Physician: RADHA Garduno Returned Call: 1131 I discussed the patients case with RADHA Garduno. He is going to evaluate the patient for further treatment. Impression Primary Impression: ACS (acute coronary syndrome) Additional Impressions: CHF (congestive heart failure) Hypoxia Scribe Attestation The scribe's documentation has been prepared under my direction and personally reviewed by me in its entirety. I confirm that the note above accurately reflects all work, treatment, procedures, and medical decision making performed by me. Departure Information Dispostion Being Evaluated By Hospitalist Referrals Lottie Winn MD (PCP) Problem Qualifiers Additional Impressions: CHF (congestive heart failure) Congestive heart failure type: unspecified congestive heart failure type Congestive heart failure chronicity: unspecified congestive heart failure chronicity Qualified Codes: I50.9 - Heart failure, unspecified
[2017-07-22] MEDS ORDERED: MAGNESIUM SULFATE 1GM / D5W 1 GM in PREMIXED IN D5W 100 ML IV ONE (15:00)
[2017-07-22 15:49] LABS: MANUAL MICROSCOPIC REQUIRED? NO; URINE APPEARANCE CLEAR (CLEAR); URINE BILIRUBIN NEG (NEG); URINE COLOR COLORLESS; URINE NITRITE NEG (NEG); URINE PH 6.5 (4.5-7.5); URINE SPECIFIC GRAVITY <= 1.005 (1.000-1.030); UROBILINOGEN NEG (NEG)
[2017-07-22 15:50] LABS: REVIEW REQ? NO
[2017-07-22 16:00] VITALS: O2SAT 99
[2017-07-22 16:18] LABS: PROTHROMBIN TIME (PATIENT) 10.9 SECONDS (9.0-12.0)
--- NOTE | 2017-07-22 16:19 | Cardiology Consultation ---
Cardiology Consultation Date of Consultation: Jul 22, 2017. Pt evaluation today including: conversation w/ patient, conversation w/ family , physical exam, chart review, lab review, review of studies History of Present Illness 86 year old female with a PMHx of TAVR presents to the ED with acute SOB. She says that she noticed the symptoms yesterday afternoon while doing things around the house. The symptoms progressively got worse throughout the day, but she says that she managed to sleep throughout the evening without too much trouble. Upon waking, the patient remarks that she was having SOB at rest as well as with activity and called her daughter for help. Pt denies any associated chest pain, LE edema or syncope. She does remark that she felt weak this morning. Patient reports that last week she had a upper resp infection. In addition, she complains of wrist pain and says she was treated in the ED last week for the wrist pain with prednisone and hydrocodone. Patient has a PMHx significant for DM2, HTN and mechanical aortic valve. Pt denies a h/o angina. Pt describes herself as an occasional smoker for 40+ years. Patient has a FH significant for fatal [place] in her father (81 yo) and her brother (45yo). Past Medical/Surgical History (1) Hypertension (2) S/P TAVR (transcatheter aortic valve replacement) (3) Insulin dependent diabetes mellitus Family History Diabetes mellitus FH: hypertension Heart disease Father of [place], age 81 Brother of [place], age 45 Social History Smoking Status: Former Smoker History of Alcohol Use: Yes (occasional) Review of Systems Constitutional: No fever, No chills, No sweats Respiratory: + wheezing, + shortness of breath, + dyspnea on exertion, No cough , No sputum Cardiac: No chest pain, No edema, No palpitations Abdomen: No pain, No nausea, No vomiting, No diarrhea Allergies Coded Allergies: No Known Allergies (Unverified , 07/22/17) Medications Current Inpatient Medications Medications (Trade) Dose Ordered Sig/David Route Start Time Stop Time Status Last Admin Dose Admin Ioversol (Optiray 320) 125 ml UD PRN IV 07/22/17 10:45 07/26/17 10:44 Enoxaparin Sodium (Lovenox Inj) 40 mg Q24H SC 07/22/17 11:45 08/21/17 11:44 UNV Acetaminophen (Tylenol Tab) 650 mg Q4H PRN PO 07/22/17 11:45 08/21/17 11:44 Al Hydrox/Mg Hydrox/Simethicone (Maalox Max Susp) 15 ml Q4H PRN PO 07/22/17 11:45 08/21/17 11:44 Ondansetron HCl (Zofran Inj) 4 mg Q6H PRN IV 07/22/17 11:45 08/21/17 11:44 Nitroglycerin (Nitrostat Tab) 0.4 mg UD PRN SL 07/22/17 11:45 08/21/17 11:44 Morphine Sulfate (MoRPHine SULFATE INJ) 2 mg Q30M PRN IV 07/22/17 11:45 08/05/17 11:44 Amlodipine Besylate (Norvasc Tab) 5 mg HS PO 07/22/17 21:00 08/21/17 20:59 UNV Aspirin (Ecotrin Tab) 81 mg HS PO 07/22/17 21:00 08/21/17 20:59 UNV Atorvastatin Calcium (Lipitor Tab) 20 mg HS PO 07/22/17 21:00 08/21/17 20:59 UNV Diphenoxylate HCl/ Atropine (Lomotil Tab) 1 tab QID PO 07/22/17 13:00 08/21/17 12:59 UNV Docusate Sodium (coLACE CAP) 100 mg BID PO 07/22/17 21:00 08/21/17 20:59 UNV Acetaminophen/ Hydrocodone Bitart ([place] 5/325 Tab) 2 tab Q6 PRN PO 07/22/17 11:45 08/05/17 11:44 Insulin Glargine (Lantus Solostar Pen) 10 units QPM SQ 07/22/17 21:00 08/21/17 20:59 UNV Insulin Glargine (Lantus Solostar Pen) 12 units QAM SQ 07/23/17 09:00 08/22/17 08:59 UNV Levothyroxine Sodium (Synthroid Tab) 75 mcg DAILY PO 07/23/17 09:00 08/22/17 08:59 UNV Ropinirole HCl (Requip Tab) 0.5 mg UD PO 07/22/17 11:45 08/21/17 11:44 UNV Ropinirole HCl (Requip Tab) 1 mg QPM PO 07/22/17 21:00 08/21/17 20:59 UNV Enalapril Maleate (Vasotec Tab) 20 mg DAILY PO 07/23/17 09:00 08/22/17 08:59 UNV Non-Formulary Medication (Bromfenac Sodium (Ophth) (Prolensa)) 1 drop QAM OPB 07/23/17 09:00 08/22/17 08:59 UNV Miscellaneous Information (Order Awaiting Action) 1 ea QS N/A 07/22/17 16:00 08/21/17 15:59 Insulin Aspart (novoLOG ASPART) SLIDING SCALE PARAMETER ACHS SC 07/22/17 16:00 08/21/17 15:59 UNV Prednisone (PredniSONE TAB) 10 mg DAILY PO 07/23/17 09:00 08/22/17 08:59 UNV Magnesium Sulfate 1 gm/Prmx 100 ml @ 100 mls/hr ONE ONCE IV 07/22/17 12:00 07/22/17 12:59 UNV Furosemide 40 mg/ Syringe 4 ml @ 4 mls/min DAILY IV 07/23/17 09:00 08/22/17 08:59 UNV Glucose (Glucose 40% Gel) 15-30 GRAMS 15 GRAMS... UD PRN PO 07/22/17 14:00 08/21/17 13:59 Glucose (Glucose Chew Tab) 4-8 Tablets 4 Tabl... UD PRN PO 07/22/17 14:00 08/21/17 13:59 Dextrose (Dextrose 50% 50ML Syringe) 25-50ML OF 50% DW IV FOR... UD PRN IV 07/22/17 14:00 08/21/17 13:59 Glucagon (Glucagon Inj) 1 mg UD PRN SQ 07/22/17 14:00 08/21/17 13:59 Physical Exam Vital Signs Past 12 Hours Date Time Temp Pulse Resp B/P (MAP) Pulse Ox O2 Delivery O2 Flow Rate FiO2 07/22/17 13:44 90 20 157/72 95 Nasal Cannula 2.0 07/22/17 13:08 84 20 166/76 93 Nasal Cannula 2.0 07/22/17 11:09 94 20 176/73 94 Nasal Cannula 2.0 07/22/17 10:22 95 20 150/95 92 Nasal Cannula 2.0 07/22/17 09:18 92 Nasal Cannula 2.0 07/22/17 09:17 92 Nasal Cannula 2.0 07/22/17 09:12 102 07/22/17 09:10 36.4 103 24 155/82 86 Room Air 07/22/17 09:10 Room Air Head: normocephalic, atraumatic Lungs: Respiratory effort: dyspneic Auscultation: CTA except as noted, no wheezing, no rales/crackles, no rhonchi, deminished air movement, decreased breath sounds Cardiovascular: Heart Auscultation: RRR, normal S2, no murmurs, no rubs, no gallops, II/ [place] Peripheral Pulses: Bruits: carotid bruit on the left, carotid bruit on the right Extremities: no edema Data Laboratory Results: Last 24 Hours Test 07/22/17 09:52 White Blood Count 10.76 K/uL Red Blood Count 3.75 M/uL Hemoglobin 11.6 g/dL Hematocrit 35.0 % Mean Corpuscular Volume 93.3 fL Mean Corpuscular Hemoglobin 30.9 pg Mean Corpuscular Hemoglobin Concent 33.1 g/dl Platelet Count 359 K/uL Mean Platelet Volume 10.4 fL Neutrophils (%) (Auto) 61.4 % Lymphocytes (%) (Auto) 26.6 % Monocytes (%) (Auto) 9.7 % Eosinophils (%) (Auto) 2.0 % Basophils (%) (Auto) 0.1 % Neutrophils # (Auto) 6.61 K/uL Lymphocytes # (Auto) 2.86 K/uL Monocytes # (Auto) 1.04 K/uL Eosinophils # (Auto) 0.22 K/uL Basophils # (Auto) 0.01 K/uL RDW Standard Deviation 51.2 fL RDW Coefficient of Variation 15.0 % Immature Granulocyte % (Auto) 0.2 % Immature Granulocyte # (Auto) 0.02 K/uL D-Dimer 1590 ug/L FEU Sodium Level 137 mmol/L Potassium Level 3.9 mmol/L Chloride Level 103 mmol/L Carbon Dioxide Level 23 mmol/L Anion Gap 11.0 mmol/L Blood Urea Nitrogen 42 mg/dl Creatinine 1.15 mg/dl Est Creatinine Clear Calc Drug Dose 29.6 ml/min Estimated GFR () 50.2 Estimated GFR (Non- 43.4 BUN/Creatinine Ratio 36.2 Random Glucose 223 mg/dl Calcium Level 8.8 mg/dl Total Bilirubin 0.3 mg/dl Aspartate Amino Transf (AST/SGOT) 15 U/L Alanine Aminotransferase (ALT/SGPT) 30 U/L Alkaline Phosphatase 68 U/L Troponin I 0.275 ng/ml Total Protein 6.7 gm/dl Albumin 3.1 gm/dl Globulin 3.6 gm/dl Albumin/Globulin Ratio 0.9 Imaging: CT DOSE: 234.54 mGy.cm FINDINGS: No pulmonary emboli are identified. Prosthetic aortic valve is noted. There is no evidence of a ascending thoracic aortic dissection. Descending thoracic aorta is suboptimally opacified. Heart is mildly enlarged. There is no pericardial effusion. Note is made of moderate bilateral pleural effusions. Associated bilateral lower lobe opacities likely reflect atelectasis or pulmonary edema. Interlobular septal thickening indicates pulmonary edema. Note is made of a lobulated 2.1 x 1.8 cm circumscribed right middle lobe nodule shown on axial image 152 of 298. Several calcifications are noted within this nodule. Bony thorax and upper abdomen are unremarkable. There is a small hiatal hernia. IMPRESSION: 1. No pulmonary emboli identified. 2. Findings consistent with moderate pulmonary edema. Moderate bilateral pleural effusions. 3. 2.1 x 1.8 cm lobulated circumscribed middle lobe nodule which contains several calcifications. This is indeterminate although probably benign. This could reflect a hamartoma however, a follow-up chest CT in 3 months is recommended to ensure stability. EKG: NSR, 98 BPM Possible left atrial enlargement Left bundle branch block Telemetry reviewed: Assessment & Plan 86 year old female comes to [facility] with SOB for one day 1. Acute Diastolic Heart Failure -Acute SOB in ED, CT showing moderate pulmonary edema and bilateral pulmonary effusion -ECHO shows normal LV function, normal aortic valve. -EKG patient has h/o LBBB, no acute changes seen -Patient says she has been on prednisone and has been eating a high salt diet over the past few days. Acute SOB possibly 2/2 fluid retention from steroids and diet. -Plan; IV Lasix 40 mg given in the ED, follow I/O and weights. 2. Increased troponin -Pt has known CAD from catheterization prior to aortic valve replacement last year Plan; Trend troponin; .215, EKG q am or with onset of chest pain 3. CAD -Bilateral carotid bruit on exam; patient has had carotid doppler in past with < 50% occlusion. RESIDENT NOTE---->please see attendings note (Dr. Grijalva) for complete details I interviewed and examined the patient with the resident, see separate note. Dr. Valentine Turner.
[2017-07-22 16:34] VITALS: BP 157/73; PULSE 90; TEMP 36.2; O2SAT 93
--- NOTE | 2017-07-22 16:54 | Cardiology Consultation ---
Cardiology Consultation Date of Consultation: Jul 22, 2017. Requesting Physician: Dr. Cowan Reason for Consultation: CHF, valve replacement Pt evaluation today including: conversation w/ patient, conversation w/ family , physical exam, lab review, review of studies, review of inpatient medication list History of Present Illness This is a very pleasant 86-year-old woman who has a history of aortic stenosis for which she underwent TAVR in November 10, 2015. She had nonobstructive coronary artery disease at catheterization as well as mild to moderate mitral regurgitation. She has had preserved left ventricular function on echocardiography 12/24/2016. She does have a left bundle branch block pattern which preceded her valve replacement and has had difficulty with fatigue both before and after her valve replacement. Although she has continued to have difficulty with fatigue she has been doing well since her valve replacement. She does not have a history of congestive heart failure but was recently treated with steroids for wrist arthritis, and she also ate a number of frozen prepared meals and noted that her weight was up several pounds recently. She then developed significant shortness of breath yesterday, was able to sleep during the night but today the shortness of breath got worse and she was brought to the emergency room where she was found to be in congestive heart failure. She was given intravenous diuretics and feels considerably better. She does have a history of coronary artery disease but did not have chest discomfort and has not had lightheadedness, dizziness or palpitations. Past Medical/Surgical History (1) Hypertension (2) Insulin dependent diabetes mellitus (3) Neuropathy (4) S/P TAVR (transcatheter aortic valve replacement) Family History Diabetes mellitus FH: hypertension Heart disease Social History Smoking Status: Former Smoker History of Alcohol Use: No (OCCASIONAL WINE) Review of Systems Constitutional: + see HPI, + fatigue, No fever, No weight loss, No weakness Respiratory: + shortness of breath, No cough, No wheezing, No dyspnea on exertion Cardiac: No chest pain, No orthopnea, No PND, No edema, No palpitations Abdomen: No pain, No nausea, No vomiting, No diarrhea, No GI bleeding Female : No problem reported Neurologic: No paralysis, No weakness, No numbness/tingling, No balance problems Heme: No abnormal bleeding/bruising, No clotting problems Endo: No fatigue Skin: No problem reported All Other Systems: Reviewed and Negative Allergies Coded Allergies: No Known Allergies (Unverified , 07/22/17) Medications Current Inpatient Medications Medications (Trade) Dose Ordered Sig/Daivd Route Start Time Stop Time Status Last Admin Dose Admin Ioversol (Optiray 320) 125 ml UD PRN IV 07/22/17 10:45 07/26/17 10:44 Enoxaparin Sodium (Lovenox Inj) 40 mg Q24H SC 07/22/17 11:45 08/21/17 11:44 UNV Acetaminophen (Tylenol Tab) 650 mg Q4H PRN PO 07/22/17 11:45 08/21/17 11:44 Al Hydrox/Mg Hydrox/Simethicone (Maalox Max Susp) 15 ml Q4H PRN PO 07/22/17 11:45 08/21/17 11:44 Ondansetron HCl (Zofran Inj) 4 mg Q6H PRN IV 07/22/17 11:45 08/21/17 11:44 Nitroglycerin (Nitrostat Tab) 0.4 mg UD PRN SL 07/22/17 11:45 08/21/17 11:44 Morphine Sulfate (MoRPHine SULFATE INJ) 2 mg Q30M PRN IV 07/22/17 11:45 08/05/17 11:44 Amlodipine Besylate (Norvasc Tab) 5 mg HS PO 07/22/17 21:00 08/21/17 20:59 Aspirin (Ecotrin Tab) 81 mg HS PO 07/22/17 21:00 08/21/17 20:59 Atorvastatin Calcium (Lipitor Tab) 20 mg HS PO 07/22/17 21:00 08/21/17 20:59 Diphenoxylate HCl/ Atropine (Lomotil Tab) 1 tab QID PRN PO 07/22/17 13:00 08/21/17 12:59 Docusate Sodium (coLACE CAP) 100 mg BID PO 07/22/17 21:00 08/21/17 20:59 Acetaminophen/ Hydrocodone Bitart ([place] 5/325 Tab) 2 tab Q6 PRN PO 07/22/17 11:45 08/05/17 11:44 Insulin Glargine (Lantus Solostar Pen) 10 units QPM SQ 07/22/17 21:00 08/21/17 20:59 Insulin Glargine (Lantus Solostar Pen) 12 units QAM SQ 07/23/17 09:00 08/22/17 08:59 Levothyroxine Sodium (Synthroid Tab) 75 mcg DAILYBB PO 07/23/17 06:00 08/22/17 05:59 Ropinirole HCl (Requip Tab) 0.5 mg DAILY@1400 PRN PO 07/22/17 11:45 08/21/17 11:44 Ropinirole HCl (Requip Tab) 1 mg QPM PO 07/22/17 21:00 08/21/17 20:59 Enalapril Maleate (Vasotec Tab) 20 mg DAILY PO 07/23/17 09:00 08/22/17 08:59 Miscellaneous Information (Order Awaiting Action) 1 ea QS N/A 07/22/17 16:00 08/21/17 15:59 Miscellaneous Information (Order Awaiting Action) 1 ea QS N/A 07/22/17 16:00 08/21/17 15:59 Insulin Aspart (novoLOG ASPART) SLIDING SCALE PARAMETER ACHS SC 07/22/17 16:00 08/21/17 15:59 Prednisone (PredniSONE TAB) 10 mg DAILY PO 07/23/17 09:00 08/22/17 08:59 Magnesium Sulfate 1 gm/Prmx 100 ml @ 100 mls/hr ONE ONCE IV 07/22/17 15:00 07/22/17 15:59 Furosemide 40 mg/ Syringe 4 ml @ 4 mls/min DAILY IV 07/23/17 09:00 08/22/17 08:59 Glucose (Glucose 40% Gel) 15-30 GRAMS 15 GRAMS... UD PRN PO 07/22/17 14:00 08/21/17 13:59 Glucose (Glucose Chew Tab) 4-8 Tablets 4 Tabl... UD PRN PO 07/22/17 14:00 08/21/17 13:59 Dextrose (Dextrose 50% 50ML Syringe) 25-50ML OF 50% DW IV FOR... UD PRN IV 07/22/17 14:00 08/21/17 13:59 Glucagon (Glucagon Inj) 1 mg UD PRN SQ 07/22/17 14:00 08/21/17 13:59 Physical Exam Vital Signs Past 12 Hours Date Time Temp Pulse Resp B/P (MAP) Pulse Ox O2 Delivery O2 Flow Rate FiO2 07/22/17 14:24 36.3 78 16 153/75 95 Nasal Cannula 2.0 07/22/17 13:44 90 20 157/72 95 Nasal Cannula 2.0 07/22/17 13:08 84 20 166/76 93 Nasal Cannula 2.0 07/22/17 11:09 94 20 176/73 94 Nasal Cannula 2.0 07/22/17 10:22 95 20 150/95 92 Nasal Cannula 2.0 07/22/17 09:18 92 Nasal Cannula 2.0 07/22/17 09:17 92 Nasal Cannula 2.0 07/22/17 09:12 102 07/22/17 09:10 36.4 103 24 155/82 86 Room Air 07/22/17 09:10 Room Air Constitutional: General Apperance: heathly-appearing Level of Distress: NAD Psychiatric: Mental Status: active & alert Head: normocephalic Eyes: EOM: EOMI ENMT: normal ENT inspection, hearing grossly normal Neck: supple, no masses Lungs: Respiratory effort: no dyspnea, good air movement Auscultation: breath sounds normal, no wheezing Cardiovascular: Heart Auscultation: no murmurs, no rubs, no gallops, II/ AUGUSTA, II/ WSM Peripheral Pulses: Bruits: none appreciated Abdomen: Bowel Sounds: normal Inspection & Palpation: soft, no tenderness, guarding & rebound, no masses Musculoskeletal: normal strength (5/5 throughout) Extremities: no edema Neurologic: Cranial Nerves: grossly intact Sensation: grossly intact She has either bilateral carotid bruits or a transmitted murmur to the carotids Data Laboratory Results: Last 24 Hours Test 07/22/17 09:52 07/22/17 14:58 White Blood Count 10.76 K/uL Red Blood Count 3.75 M/uL Hemoglobin 11.6 g/dL Hematocrit 35.0 % Mean Corpuscular Volume 93.3 fL Mean Corpuscular Hemoglobin 30.9 pg Mean Corpuscular Hemoglobin Concent 33.1 g/dl Platelet Count 359 K/uL Mean Platelet Volume 10.4 fL Neutrophils (%) (Auto) 61.4 % Lymphocytes (%) (Auto) 26.6 % Monocytes (%) (Auto) 9.7 % Eosinophils (%) (Auto) 2.0 % Basophils (%) (Auto) 0.1 % Neutrophils # (Auto) 6.61 K/uL Lymphocytes # (Auto) 2.86 K/uL Monocytes # (Auto) 1.04 K/uL Eosinophils # (Auto) 0.22 K/uL Basophils # (Auto) 0.01 K/uL RDW Standard Deviation 51.2 fL RDW Coefficient of Variation 15.0 % Immature Granulocyte % (Auto) 0.2 % Immature Granulocyte # (Auto) 0.02 K/uL D-Dimer 1590 ug/L FEU Sodium Level 137 mmol/L Potassium Level 3.9 mmol/L Chloride Level 103 mmol/L Carbon Dioxide Level 23 mmol/L Anion Gap 11.0 mmol/L Blood Urea Nitrogen 42 mg/dl Creatinine 1.15 mg/dl Est Creatinine Clear Calc Drug Dose 29.6 ml/min Estimated GFR () 50.2 Estimated GFR (Non- 43.4 BUN/Creatinine Ratio 36.2 Random Glucose 223 mg/dl Calcium Level 8.8 mg/dl Total Bilirubin 0.3 mg/dl Aspartate Amino Transf (AST/SGOT) 15 U/L Alanine Aminotransferase (ALT/SGPT) 30 U/L Alkaline Phosphatase 68 U/L Troponin I 0.275 ng/ml Total Protein 6.7 gm/dl Albumin 3.1 gm/dl Globulin 3.6 gm/dl Albumin/Globulin Ratio 0.9 Imaging: I reviewed her echocardiogram which was done this afternoon, the formal report is pending. Overall her left ventricular function appears good, and the valve function appears reasonable. EKG: Sinus rhythm with left bundle branch block, similar to prior. Telemetry reviewed: Sinus rhythm Assessment & Plan #1. CHF: By the time I saw her she had already diuresed several kilograms, was feeling much better and has no clear evidence of heart failure. On the other hand I think she did come in with heart failure and the cause is uncertain. Nothing on her echocardiogram gives us an explanation and her cardiac enzymes so far are negative. I suspect it was due to fluid retention, possibly in part due to steroid use and perhaps the frozen meals that she had over the last several days. She has responded well to diuresis and as long as she continues to do well I would probably not alter her regimen. She weighs herself daily and is very aware of her diet so I don't know if there is any reason to alter her diuretic when she goes home (she has been on hydrochlorothiazide). #2. Aortic valve replacement: By exam and echocardiography (final report pending ) it appears to be functioning well and does not explain her presentation. #3. Left bundle-branch block: She has a long-standing left bundle branch block ( at least as far back as 2011) and that has not changed appreciably. She has not developed a cardiomyopathy from it. She is followed by Dr. Mejía in our office, and he will probably see her tomorrow. Thank you for allowing me to participate in her care.
--- NOTE | 2017-07-22 17:05 | ECHOCARDIOGRAM REPORT ---
*NOTICE TO RECEIVING DEMOCRAT AGENCY This information is strictly Confidential and protected under [place] law. [place] law prohibits you from making any further disclosure of this information unless further disclosure is expressly permitted by the written consent of the person to whom it pertains or is authorized by law. A general authorization for the release of medical or other information is not sufficient for this purpose. Hospital accepts no responsibility if the information is made available to any other person, INCLUDING THE PATIENT. Interpretation Summary * Name: ALEX DOTY Study Date: 07/22/2017 01:15 PM BP: 176/73 mmHg * Patient Location: A10 HR: 94 * : 1930 (M/d/yyyy) Gender: Female Height: 63 in * Age: 86 yrs Ethnicity: CA Weight: 134 lb * Ordering Physician: Chapo * Performed By: Bre Rust RCS * * Reason For Study: CHF * BSA: 1.6 m2 * -- Conclusions -- * 1. Normal LV size. Borderline concentric LVH. * 2. Normal LV systolic function. LVEF 55-60%. No regional wall motion abnormalities. * 3. Normal RV size and function. * 4. Post TAVR with Alexis Alla XT #[address] Expected transvalvular gradients. * 5. Mild to moderate aortic regurgitation. * 6. Mild mitral regurgitation. * 7. Grade II diastolic dysfunction. * 8. Mild pulmonary hypertension. Est PASP 40-45 mmHg. Normal est CVP. * 9. No prior studies for comparison. Procedure Details * A complete two-dimensional transthoracic echocardiogram was performed (2D, M-mode, Doppler and color flow Doppler). Left Ventricle * The left ventricle is grossly normal size. * There is borderline concentric left ventricular hypertrophy. * Ejection Fraction = 55-60%. * No regional wall motion abnormalities noted. Right Ventricle * The right ventricle is grossly normal size. * The right ventricular systolic function is normal as assessed by tricuspid annular plane systolic excursion (TAPSE) (normal >1.5 cm). Atria * The left atrium is moderately dilated. * Right atrial size is normal. * No ASD detected; PFO is not assessed. Mitral Valve * There is moderate to severe mitral annular calcification. * There is mild mitral regurgitation. Tricuspid Valve * There is trace tricuspid regurgitation. * Right ventricular systolic pressure is elevated at 40-50mmHg. Aortic Valve * Mild to moderate aortic regurgitation. * Post TAVR with Alexis Alla XT #[address] Well-seated. Expected transvalvular gradients. Pulmonic Valve * The pulmonary valve is inadequately visualized, but the Doppler data is adequate for interpretation. * There is no pulmonic valvular stenosis. * Trace pulmonic valvular regurgitation. Great Vessels * The aortic root and proximal ascending aorta are normal sized. Pericardium/Pleural * There is no pericardial effusion. Great Vessels * Normal inferior vena cava size and collapsability with sniff indicates a normal right atrial pressure of 3 mmHg Left Ventricular Diastolic Function * Diastolic dysfunction, Grade II, consistent with elevated left atrial pressure. MMode 2D Measurements and Calculations IVSd 1.0 cm IVSs 1.2 cm LVIDd 3.9 cm LVIDs 3.2 cm LVPWd 0.88 cm LVPWs 1.2 cm IVS/LVPW 1.1 FS 17.4 % EDV(Teich) 66.0 ml ESV(Teich) 41.6 ml EF(Teich) 36.9 % EDV(cubed) 59.4 ml ESV(cubed) 33.4 ml EF(cubed) 43.7 % % IVS thick 21.9 % % LVPW thick 33.6 % LV mass(C)d 111.8 grams LV mass(C)dI 68.6 grams/m\S\2 LV mass(C)s 119.9 grams LV mass(C)sI 73.5 grams/m\S\2 SV(Teich) 24.4 ml SI(Teich) 14.9 ml/m\S\2 SV(cubed) 26.0 ml SI(cubed) 15.9 ml/m\S\2 asc Aorta Diam 2.8 cm LVAd ap4 32.0 cm\S\2 LVLd ap4 8.4 cm EDV(MOD-sp4) 97.6 ml EDV(sp4-el) 103.6 ml LVAs ap4 21.1 cm\S\2 LVLs ap4 7.2 cm ESV(MOD-sp4) 50.1 ml ESV(sp4-el) 52.3 ml EF(MOD-sp4) 48.7 % EF(sp4-el) 49.5 % SV(MOD-sp4) 47.5 ml SI(MOD-sp4) 29.1 ml/m\S\2 SV(sp4-el) 51.3 ml SI(sp4-el) 31.5 ml/m\S\2 Doppler Measurements and Calculations MV E max nestor 175.8 cm/sec MV A max nestor 113.7 cm/sec MV E/A 1.5 MV P1/2t max nestor 200.2 cm/sec MV P1/2t 56.9 msec MVA(P1/2t) 3.9 cm\S\2 MV dec slope 1030.1 cm/sec\S\2 MV dec time 0.12 sec Ao V2 max 245.9 cm/sec Ao max PG 24.2 mmHg Ao max PG (full) 9.7 mmHg AI max nestor 305.2 cm/sec AI max PG 37.3 mmHg AI dec slope 410.1 cm/sec\S\2 AI P1/2t 218.0 msec LV V1 max PG 14.5 mmHg LV V1 max 190.1 cm/sec PA V2 max 80.7 cm/sec PA max PG 2.6 mmHg TR max nestor 273.1 cm/sec
[2017-07-22] MEDS: INSULIN ASPART 100 UNITS/ML 3 ML PEN SC SCH ×2 (17:26→20:46)
[2017-07-22] MEDS: ENOXAPARIN 30 MG/0.3 ML SYR SC SCH (18:43)
--- NOTE | 2017-07-22 19:04 | SURGICAL CONSULTATION ---
DATE OF CONSULTATION: 07/22/2017 REASON FOR CONSULTATION: 1. Right middle lobe mass. 2. Bilateral pleural effusions. HISTORY OF PRESENT ILLNESS: This is an 86-year-old female remarkably youthful who developed pain in both of her wrists and was seen in the emergency room since she had pain in her wrist. She was seen in the emergency room 4 days ago on 07/18/2017. It apparently was quite a bit of pain. She also had a stiff neck. She underwent a TVAR back in November of 2015 at [facility]. She was placed on steroids at that time as well as hydrocodone and states that she ate some salt-laden food over the last few days. She then developed shortness of breath yesterday, although she states over the last few days she has not felt "right". She presented to the emergency room and she was found to have bilateral pleural effusions. A CT scan was performed to rule out pulmonary embolism. She has a right middle lobe lesion which is bilobular and has some calcifications in it. I was asked to evaluate her from a thoracic surgery standpoint. Her effusions are homogenous and are not very large. She has received Lasix and states that she has had a brisk diuresis from this and "feel better already". I was asked to comment on her pleural effusions as well as her right middle lobe mass. She specifically denies chest pain or palpitations. She has had no lower extremity edema. She was hypoxic when she presented, which was extremely concerning. PAST MEDICAL HISTORY: 1. Insulin-dependent diabetes mellitus. 2. Neuropathy. 3. Aortic stenosis (status post TVAR). FAMILY MEDICAL HISTORY: 1. 3, para 3, abortus 0. 3. TVAR (through anterior thoracotomy, right chest). ALLERGIES: No known drug allergies. MEDICATIONS: (Regular medications taken at home): 1. Amlodipine. 2. Aspirin. 3. Lipitor. 4. Prolensa. 5. Lotensin. 6. Lomotil. 7. Hydrochlorothiazide. 8. [place]. 9. Lantus insulin. 10. Synthroid. 11. ICaps. 12. Aleve. 13. Ocuvite. 14. Systane. 15. Prednisone. 16. Requip. SOCIAL HISTORY: The patient lives alone. 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 She is originally from [facility]. She was a very light cigarette smoker for about 20 years. She states that she would often go days without smoking and was a "social smoker". She quit 35 years ago. She started smoking when she was 36. She is physically active and in fact played golf this past summer. REVIEW OF SYSTEMS: The patient denies any weight loss. She has had no fevers or chills. She states she just has not felt "very good" these past few days. She states has been quite fatigued and then she developed shortness of breath as noted. She denied hemoptysis; however, she states she has actually had a cough with some light yellow sputum for the last 2 weeks. She states that she has been "fighting a cold". She denies nausea or vomiting. She occasionally has constipation which she treats with Colace and she will sometimes get loose bowels and have to be treated with Lomotil. She denies nausea or vomiting. She had no neurologic symptoms. She has had no visual or auditory symptoms. She had no wound breakdown. She denies peripheral edema or joint effusions. She has had no auditory or visual symptoms. PHYSICAL EXAMINATION: GENERAL: This is a 5 feet 3 inch, 127-pound female who is awake, alert and oriented and appears much younger than his stated age of 86. She has no acute complaints now and she is on room air with good saturations. HEENT: Her extraocular movements are intact. Pupils are equal, round and reactive. Sclerae are anicteric. Her oral mucosa is moist. Her teeth are in excellent repair. She has no oral mucosal lesions. Her pharynx is clear. NECK: Supple. I detect no supraclavicular or cervical lymphadenopathy or tracheal deviation, no neck vein distention or carotid bruits. HEART AND LUNGS: She is moving air well really with very few crackles in her bases. She has no wheezing. She has a well-healed right transverse incision to the right of her mid sternum. She does have a systolic murmur, but has a regular rate and rhythm of her heart. ABDOMEN: Soft, nontender. EXTREMITIES: She has excellent peripheral pulses. She has no peripheral edema. NEUROLOGIC: She has no focal deficits, is awake, alert and oriented. Cranial nerves II-XII are intact. DATA: I reviewed her CT scan. She does have a bilobular lesion in the right middle lobe with some calcifications. This obviously is not a new finding. She does have bilateral homogenous effusions. ASSESSMENT AND PLAN: 1. Bilateral homogenous effusions. She may well be in congestive heart failure and I agree with diuresing her. I would follow her pleural effusions with a chest x-ray serially. 2. Right middle lobe lesion. This needs to be worked up of course. The patient is physiologically much younger than 86. I would treat her congestive heart failure and we will see how she looks and workup this mass as an outpatient. At this point, I would see if her pleural effusions respond with diuresis prior to intervening. EULALIA
[2017-07-22 20:00] VITALS: O2SAT 94
[2017-07-22 20:08] VITALS: BP 135/76; PULSE 80; TEMP 36.6; O2SAT 95
[2017-07-22] MEDS: ASPIRIN 81 MG ECTAB PO SCH (20:48)
[2017-07-22] MEDS: DOCUSATE SODIUM 100 MG CAP PO SCH (20:48)
[2017-07-22] MEDS: AMLODIPINE BESYLATE 5 MG TAB PO SCH (20:49)
[2017-07-22] MEDS: ATORVASTATIN 20 MG TAB PO SCH (20:49)
[2017-07-22] MEDS: ROPINIROLE HCL 1 MG TAB PO SCH (20:50)
[2017-07-22] MEDS: INSULIN GLARGINE SOLOSTAR 100 UNITS/ML 3 ML PEN SQ SCH (20:52)
[2017-07-22 23:55] VITALS: BP 128/50; PULSE 79; TEMP 36.6; O2SAT 95
[2017-07-23] VITALS (7 sets, daily range): BP systolic 134–164; BP diastolic 54–72; PULSE 68–83; TEMP 36.6–36.7; O2SAT 92–96
[2017-07-23] MEDS: LEVOTHYROXINE 75 MCG TAB PO SCH (05:39)
[2017-07-23] MEDS: INSULIN ASPART 100 UNITS/ML 3 ML PEN SC SCH ×4 (07:00→21:00)
[2017-07-23] MEDS: ENALAPRIL MALEATE 10 MG TAB PO SCH (07:14)
[2017-07-23] MEDS: INSULIN GLARGINE SOLOSTAR 100 UNITS/ML 3 ML PEN SQ SCH ×2 (07:32→21:26)
[2017-07-23 07:54] LABS: BUN/CREATININE RATIO 32.2 (10-20); CALCIUM 8.5 mg/dl (8.5-10.1); CREATININE 1.14 mg/dl (0.60-1.20); POTASSIUM 3.8 mmol/L (3.5-5.1)
[2017-07-23] MEDS ORDERED: HYDROCHLOROTHIAZIDE 25 MG TAB PO SCH (09:00)
[2017-07-23] MEDS ORDERED: FUROSEMIDE INJ 40 MG in SYRINGE 0 ML IV SCH (09:00)
[2017-07-23] MEDS: DOCUSATE SODIUM 100 MG CAP PO SCH ×2 (09:00→21:22)
[2017-07-23 09:25] LABS: ESTIMATED AVERAGE GLUCOSE 151 mg/dl; HA1C FLAG Normal (Normal)
--- NOTE | 2017-07-23 16:09 | Cardiology Follow-Up ---
Subjective Date of Service: Jul 23, 2017. Pt evaluation today including: conversation w/ patient, physical exam, chart review, conversation w/ attending History of Present Illness This morning patient feels much better. She denies any significant breathing trouble. She has been ambulatory around the [place] without limiting dyspnea. She denies any dizziness or lightheadedness. She denies any symptoms of chest discomfort throughout her recent illness. Social History Smoking Status: Former Smoker History of Alcohol Use: No (OCCASIONAL WINE) Review of Systems Respiratory: + wheezing, + shortness of breath, + dyspnea on exertion, No cough , No sputum Cardiac: No chest pain, No edema, No palpitations Objective Vital Signs Past 12 Hours Date Time Temp Pulse Resp B/P (MAP) Pulse Ox O2 Delivery O2 Flow Rate FiO2 07/23/17 15:43 79 94 07/23/17 12:00 Room Air 07/23/17 11:32 36.7 74 18 147/72 (97) 94 Room Air 07/23/17 08:00 Room Air 07/23/17 07:45 36.6 70 18 164/54 (90) 94 Room Air Last Recorded Weight-Kilograms: 57.200 Intake & Output 8-Hour Column 07/23/17 07/24/17 07/24/17 16:00 00:00 08:00 Intake Total 410 ml Output Total 800 ml Balance -390 ml 24-Hour Column 07/24/17 08:00 Intake Total 410 ml Output Total 800 ml Balance -390 ml Physical Exam Constitutional: General Apperance: heathly-appearing Level of Distress: NAD Lungs: Respiratory effort: no dyspnea, good air movement Auscultation: breath sounds normal, no wheezing Cardiovascular: Heart Auscultation: no murmurs, no rubs, no gallops, II/ AUGUSTA, II/ WSM Peripheral Pulses: Bruits: none appreciated Extremities: no edema She has either bilateral carotid bruits or a transmitted murmur to the carotids Data Laboratory Results: Last 24 Hours Test 07/22/17 16:24 07/22/17 17:54 07/22/17 19:56 07/23/17 01:26 Bedside Glucose 238 mg/dl 138 mg/dl Troponin I 1.480 ng/ml 2.460 ng/ml Test 07/23/17 06:28 07/23/17 07:00 07/23/17 08:44 07/23/17 11:31 Bedside Glucose 88 mg/dl 144 mg/dl Sodium Level 139 mmol/L Potassium Level 3.8 mmol/L Chloride Level 103 mmol/L Carbon Dioxide Level 28 mmol/L Anion Gap 8.0 mmol/L Blood Urea Nitrogen 37 mg/dl Creatinine 1.14 mg/dl Est Creatinine Clear Calc Drug Dose 29.8 ml/min Estimated GFR () 50.8 Estimated GFR (Non- 43.8 BUN/Creatinine Ratio 32.2 Random Glucose 83 mg/dl Estimated Average Glucose 151 mg/dl Hemoglobin A1c 6.9 % Calcium Level 8.5 mg/dl Total Creatine Kinase 131 U/L Creatine Kinase MB 6.5 ng/ml Creatine Kinase MB Ratio 5.0 Troponin I 2.080 ng/ml Assessment and Plan 1. Pulmonary edema: This appears to have resolved clinically and on examination. Perhaps this was an element of dietary indiscretion couple with recent prednisone years. He states that the timing of her symptoms began with prednisone use. She does not give a history consistent with a sustained arrhythmia which may have causes trouble. She has normal LV systolic function. At this point would seem reasonable continue on her current medical regimen which includes hydrochlorothiazide. She was warmed regarding high sodium intake. 2. Elevated troponin: The elevation the patient's troponin suggests injury around the time of her presentation. She did not have symptoms of chest discomfort at any time during her recent illness. I do not believe that this mild elevation in the troponins with normal CK represents an acute coronary syndrome. Unfortunately, her EKG is nondiagnostic given her low baseline left bundle branch block. Her echocardiogram is reassuring in the sense that there are no new wall motion abnormalities in his preserved LV systolic function. The I suspect this is related to an element of hypoxia at the time of her presentation. She also had the [place] immediately prior to her valve replacement which did not reveal any evidence of obstructive coronary disease. 3. Aortic valve disease: Status post TAVR. Normal valve function with some an element of aortic insufficiency. This is not causing any symptoms and does not pose a current concern. 4. Mitral regurgitation: Mild No 5. Diastolic dysfunction: Graded as stage II. This may also played a role in her recent decompensation. Will continue to monitor her blood pressure and perhaps consider addition of a beta-leesa should she have recurrent symptoms.
--- NOTE | 2017-07-23 16:25 | Hospitalist Progress Note ---
Hospitalist Progress Note Date of Service Jul 23, 2017. (Cydney Arteaga ., CARLOS) Subjective Pt evaluation today including: conversation w/ patient, physical exam, chart review, lab review, review of inpatient medication list Voiding: no voiding problems Ms. Giraldo is feeling much better today than yesterday. She is breathing better , has a little cough but no sputum production. No chest pain. The wrist pain that brought her in to the ED has improved ROS Constitutional: no chills, aches, sweats or fever Respiratory: no sob,cough, sputum, or wheezing Cardiac: no chest pain, palpitations, edema, orthopnea or lightheadedness GI: no abdominal pain, nausea, vomiting, diarrhea or constipation : no dysuria or hesitancy Extremities: no joint pain or weakness Skin: no rash All Other Systems: Reviewed and Negative (Cydney Arteaga ., CARLOS) Medications Medications Administered Medications (Trade) Dose Ordered Sig/David Route Start Time Stop Time Status Last Admin Dose Admin Aspirin (Aspirin Chew) 324 mg NOW STAT PO 07/22/17 10:53 07/22/17 10:54 DC 07/22/17 11:06 324 MG Enoxaparin Sodium (Lovenox Inj) 30 mg Q24H SC 07/22/17 17:00 08/21/17 16:59 07/22/17 18:43 30 MG Amlodipine Besylate (Norvasc Tab) 5 mg HS PO 07/22/17 21:00 08/21/17 20:59 07/22/17 20:49 5 MG Aspirin (Ecotrin Tab) 81 mg HS PO 07/22/17 21:00 08/21/17 20:59 07/22/17 20:48 81 MG Atorvastatin Calcium (Lipitor Tab) 20 mg HS PO 07/22/17 21:00 08/21/17 20:59 07/22/17 20:49 20 MG Docusate Sodium (coLACE CAP) 100 mg BID PO 07/22/17 21:00 08/21/17 20:59 07/22/17 20:48 100 MG Insulin Glargine (Lantus Solostar Pen) 10 units QPM SQ 07/22/17 21:00 08/21/17 20:59 07/22/17 20:52 10 UNITS Insulin Glargine (Lantus Solostar Pen) 12 units QAM SQ 07/23/17 09:00 08/22/17 08:59 07/23/17 07:32 12 UNITS Levothyroxine Sodium (Synthroid Tab) 75 mcg DAILYBB PO 07/23/17 06:00 08/22/17 05:59 07/23/17 05:39 75 MCG Ropinirole HCl (Requip Tab) 1 mg QPM PO 07/22/17 21:00 08/21/17 20:59 07/22/17 20:50 1 MG Enalapril Maleate (Vasotec Tab) 20 mg DAILY PO 07/23/17 09:00 08/22/17 08:59 07/23/17 07:14 20 MG Insulin Aspart (novoLOG ASPART) SLIDING SCALE PARAMETER ACHS SC 07/22/17 16:00 08/21/17 15:59 07/22/17 17:26 4 UNITS Prednisone (PredniSONE TAB) 10 mg DAILY PO 07/23/17 09:00 08/22/17 08:59 07/23/17 07:15 10 MG Magnesium Sulfate 1 gm/Prmx 100 ml @ 100 mls/hr ONE ONCE IV 07/22/17 15:00 07/22/17 15:59 DC 07/22/17 15:56 100 MLS/HR Furosemide 40 mg/ Syringe 4 ml @ 4 mls/min DAILY IV 07/23/17 09:00 08/22/17 08:59 07/23/17 07:36 4 MLS/MIN Furosemide (Lasix Inj) 40 mg NOW STAT IV 07/22/17 12:10 07/22/17 12:44 DC 07/22/17 13:08 40 MG (Cydney Arteaga, CARLOS) Objective Vital Signs Date Time Temp Pulse Resp B/P (MAP) Pulse Ox O2 Delivery O2 Flow Rate FiO2 07/23/17 15:43 79 94 07/23/17 12:00 Room Air 07/23/17 11:32 36.7 74 18 147/72 (97) 94 Room Air 07/23/17 08:00 Room Air 07/23/17 07:45 36.6 70 18 164/54 (90) 94 Room Air 07/23/17 04:00 Nasal Cannula 2.0 07/23/17 04:00 36.7 68 18 150/54 (86) 95 Nasal Cannula 2.0 07/22/17 23:59 Nasal Cannula 2.0 07/22/17 23:55 36.6 79 15 128/50 (76) 95 Nasal Cannula 2.0 07/22/17 20:08 36.6 80 18 135/76 (95) 95 Room Air 07/22/17 20:00 94 Room Air 07/22/17 16:34 36.2 90 18 157/73 (101) 93 Room Air (Cydney Arteaga CRNP) Physical Exam Notes: General: no distress Eyes: normal inspection, PERLL Respiratory: chest non tender, clear to auscultation, normal breath sounds, no respiratory distress, no accessory muscle use Cardiac: regular rate and rhythm, no rub or gallop, 3/6 systolic murmur, no edema, no jvd GI/: active bowel sounds, no abd pain or tenderness, soft, non distended Extremities: normal range of motion, normal strength, non tender Neuro/Psych: alert and oriented x 3, normal mood and affect Skin: normal color, dry (Cydney Arteaga CRNP) Laboratory Results Last 24 Hours Test 07/22/17 16:24 07/22/17 17:54 07/22/17 19:56 07/23/17 01:26 Bedside Glucose 238 mg/dl 138 mg/dl Troponin I 1.480 ng/ml 2.460 ng/ml Test 07/23/17 06:28 07/23/17 07:00 07/23/17 08:44 07/23/17 11:31 Bedside Glucose 88 mg/dl 144 mg/dl Sodium Level 139 mmol/L Potassium Level 3.8 mmol/L Chloride Level 103 mmol/L Carbon Dioxide Level 28 mmol/L Anion Gap 8.0 mmol/L Blood Urea Nitrogen 37 mg/dl Creatinine 1.14 mg/dl Est Creatinine Clear Calc Drug Dose 29.8 ml/min Estimated GFR () 50.8 Estimated GFR (Non- 43.8 BUN/Creatinine Ratio 32.2 Random Glucose 83 mg/dl Estimated Average Glucose 151 mg/dl Hemoglobin A1c 6.9 % Calcium Level 8.5 mg/dl Total Creatine Kinase 131 U/L Creatine Kinase MB 6.5 ng/ml Creatine Kinase MB Ratio 5.0 Troponin I 2.080 ng/ml (Cydney Arteaga CRNP) Assessment and Plan Ms. Giraldo is an 86 year old woman here for acute diastolic CHF exacerbation Acute diastolic CHF exacerbation - put out over a liter since admission - continue diuresis with IV lasix - prp in the morning - strict I's&O's, daily weights - continue GIULIANA inhibitor - Echo showed grade II diastolic dysfunction, LVEF 55% Elevated troponin - likely due to CHF as she was asymptomatic and did not have EKG changes - Troponin peaked at 2.46 - trending back down DM - ss, lantus - BSG AC & HS Lung mass on CT - outpatient follow up per thoracic surgery Hypothyroid - continue home dose levothyroxine DVT prophylaxis - enoxaprin Full code (Cydney Arteaga, CARLOS) Attending Attestation: Pt seen/examined, chart reviewed, care plan d/w CARLOS Arteaga. I agree w/ the silverman components of her documentation. Pt's b/l wrists and dyspnea ALL improved. Tele stable/normal. No orthopnea. VSS except BPs mildly elevated gen - nad neck - mild amount JVD heart - RRR, 1/6 systolic murmur RUSB, artificial sound coming from the heart lungs - CTA b/l abd - soft, NT ext - no edema A/P: 1. acute/chronic diastolic CHF - improving. continue IV lasix today; anticipate transition to PO lasix tomorrow 2. b/l wrist pain - improved. pseudogout?? recent x-rays with mild CPPD changes and sed rate was elevated finish prednisone course 3. 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
[2017-07-23] MEDS: ENOXAPARIN 30 MG/0.3 ML SYR SC SCH (17:00)
--- NOTE | 2017-07-23 18:08 | SURGERY PROGRESS NOTE ---
DATE: 07/23/2017 Ms. Giraldo was seen today on 07/23/2017. She feels much better. She diuresed quite a bit. I am going to check a chest x-ray on her to assess her effusions in the morning, but I believe these are probably related to her pulmonary edema. I will see her in the office and we will discuss setting her up for a diagnostic procedure for this right middle lobe mass.
[2017-07-23] MEDS: ROPINIROLE HCL 1 MG TAB PO SCH (21:22)
[2017-07-23] MEDS: ATORVASTATIN 20 MG TAB PO SCH (21:23)
[2017-07-23] MEDS: ASPIRIN 81 MG ECTAB PO SCH (21:23)
[2017-07-23] MEDS: AMLODIPINE BESYLATE 5 MG TAB PO SCH (21:23)
[2017-07-24 03:17] VITALS: BP 146/61; PULSE 70; TEMP 36.7; O2SAT 96
[2017-07-24] MEDS: LEVOTHYROXINE 75 MCG TAB PO SCH (06:34)
[2017-07-24] MEDS: INSULIN ASPART 100 UNITS/ML 3 ML PEN SC SCH ×2 (07:00→12:10)
[2017-07-24 07:30] LABS: HEMATOCRIT 37.1 % (37-47); MEAN CELL VOLUME 92.8 fL (80-100); MEAN CORPUSCULAR HEMOGLOBIN 30.8 pg (25-34); MEAN CORPUSCULAR HGB CONC 33.2 g/dl (32-36); MEAN PLATELET VOLUME 10.6 fL (7.4-10.4); PLATELET COUNT 378 K/uL (130-400); WHITE BLOOD COUNT 12.12 K/uL (4.8-10.8)
[2017-07-24 07:56] LABS: BUN/CREATININE RATIO 36.1 (10-20); CALCIUM 8.5 mg/dl (8.5-10.1); CREATININE 1.14 mg/dl (0.60-1.20); MAGNESIUM 2.1 mg/dl (1.8-2.4); POTASSIUM 3.6 mmol/L (3.5-5.1)
[2017-07-24] MEDS: ENALAPRIL MALEATE 10 MG TAB PO SCH (07:57)
[2017-07-24] MEDS: DOCUSATE SODIUM 100 MG CAP PO SCH (07:57)
--- NOTE | 2017-07-24 07:58 | DIAGNOSTIC IMAGING REPORT ---
CHEST 2 VIEWS ROUTINE CLINICAL HISTORY: pleural effusions COMPARISON STUDY: CT scan dated 07/22/2017 FINDINGS: The cardiac and mediastinal contours are normal. There are surgical clips visualized in the right anterior mediastinum. There is aortic valve replacement. There is no failure. There is no focal pulmonary consolidation. There are small bilateral pleural effusions.[ IMPRESSION: Postsurgical change. Small bilateral pleural effusions, which are felt to have decreased in size compared the prior CT scan. Electronically signed by: Josh Simon M.D. 07/24/2017 7:57 AM Dictated Date/Time: 07/24/2017 7:54 AM
[2017-07-24] MEDS: INSULIN GLARGINE SOLOSTAR 100 UNITS/ML 3 ML PEN SQ SCH (07:59)
[2017-07-24 08:00] VITALS: BP 167/68; PULSE 79; TEMP 36.6; O2SAT 96
--- NOTE | 2017-07-24 09:45 | Discharge Instructions ---
Discharge Instructions Date of Service Jul 24, 2017. Admission Reason for Admission: Acute Diastolic Heart Failure Discharge Discharge Diagnosis / Problem: Acute Diastolic Heart Failure Discharge Goals Goal(s): Improve function, Increase independence Activity Recommendations Activity Limitations: resume your previous activity . Instructions / Follow-Up Instructions / Follow-Up Call your Primary Care doctor if any of the following symptoms or problems start or get worse: * Shortness of breath or difficulty breathing * Wake up at night short of breath * Chest pain * Cough * Swelling of your hands, feet, or legs * More fatigued or tired with your normal activity * Palpitations - sudden fast heart beats WEIGHT * Weigh yourself every morning after using the bathroom. * Use the same scale. * Wear the same amount of clothing. * Write your weight down on a chart. * Call your Primary Care doctor if you gain more than 2-3 pounds in 1-2 days. MEDICATIONS * Use this discharge instruction sheet for medication instructions. * Take your medications at the time your doctor ordered. * Do not skip a dose of your medicines. * If you miss a dose of medicine, take it as soon as possible, but DO NOT DOUBLE A DOSE. * Read your medicine information when you get home. * Know all of the side effects of your medicine. If in doubt, ask your pharmacist * Call your Primary Care doctor's office if you have any side effects. * Be sure all of your doctors know what medicine and herbs you take (including cold, flu, and herbal medicine). Take the following with you to your follow-up doctor appointments: * Weight Chart * Medication List * List of questions Do not drink excessive alcohol, beer or wine. Please follow with Dr. Lopez for a follow up. The Nurse Navigator with arrange an appointment for you. I have prescribed you an as needed dose of Lasix (furosemide). You should take this medication if you have gained 2-3 pounds in 1-2 days and then call your primary care provider Current Hospital Diet Patient's current hospital diet: Low Sodium Diet (2gm Na), Diabetes Type 2 Diet Discharge Diet Recommended Diet: Low Sodium Diet (2gm Na), Diabetes Type 2 Diet Procedures Procedures Performed: Chest Xray Pending Studies Studies pending at discharge: no Laboratory Results Hemoglobin A1c Test 07/23/17 07:00 Range/Units Estimated Average Glucose 151 mg/dl Hemoglobin A1c 6.9 H 4.5-5.6 % Medical Emergencies . Who to Call and When: Call 911 or go to the Emergency Room if: * If at any time you feel your situation is an emergency * You have tightness or pain in your chest that does not go away with rest or Nitroglycerin * You are very short of breath even with rest . Non-Emergent Contact Non-Emergency issues call your: Primary Care Provider Call Non-Emergent contact if: you have any medication questions . Past History Medical & Surgical History: (1) Acute diastolic heart failure . "Provider Documentation" section prepared by Cydney Arteaga. . VTE Core Measure Inpt VTE Proph given/why not?: Enoxaparin (Lovenox)SQ
[2017-07-24 09:50] VITALS: BP 167/68; PULSE 79; TEMP 36.6; O2SAT 96
[2017-07-24] MEDS ORDERED: FURO-85 PO (10:50)
--- NOTE | 2017-07-24 12:17 | SURGERY PROGRESS NOTE ---
DATE: 07/24/2017 SUBJECTIVE: Ms. Giraldo is "back to normal." She is eager to go home. Her lungs sound better. Her x-ray shows she still has small bilateral effusions, but she looks and feels so much better, I am not opposed to her going home. I would like to repeat a CT scan in about 2 weeks without contrast and to assess this mass and her pleural effusions. Once she settles down, I will probably offer her an endobronchial ultrasound and navigational bronchoscopy.
--- NOTE | 2017-07-24 15:15 | Discharge Summary ---
Discharge Summary Date of Service Jul 24, 2017. (Cydney Arteaga CRNP) Discharge Summary Admission Date: Jul 22, 2017 at 11:42 Discharge Date: Jul 24, 2017 Discharge Disposition: Home Principal Diagnosis: chf exacerbation Procedures: CXR IMPRESSION: Postsurgical change. Small bilateral pleural effusions, which are felt to have decreased in size compared the prior CT scan. CT Chest IMPRESSION: 1. No pulmonary emboli identified. 2. Findings consistent with moderate pulmonary edema. Moderate bilateral pleural effusions. 3. 2.1 x 1.8 cm lobulated circumscribed middle lobe nodule which contains several calcifications. This is indeterminate although probably benign. This could reflect a hamartoma however, a follow-up chest CT in 3 months is recommended to ensure stability. (Cydney Arteaga CRNP) Problems/Secondary Diagnoses: acute/chronic diastolic CHF recent b/l wrist arthritis, likely gout or pseudogout CKD stage 3-4 acute hypoxic respiratory failure - resolved; 2nd to CHF +troponin, likely 2nd to myocardial demand ischemia in setting of acute CHF T2DM hyperlipidemia (Rene Alonzo MD) Medication Reconciliation New Medications: Furosemide (Lasix) 20 Mg Tab 20 MG PO DAILY for Documentation MDD 20 for 14 Days, #14 TAB Please take 20 mg if you have gained 2-3 pounds in 1-2 days and call y our primary care provider Continued Medications: Amlodipine (Norvasc) 5 Mg Tab 5 MG PO HS, 0 Refills Aspirin (Aspirin Ec) 81 Mg Tab 81 MG PO HS Atorvastatin (Lipitor) 20 Mg Tab 20 MG PO HS, TAB Benazepril (Lotensin) 40 Mg Tab 20 MG PO DAILY, 0 Refills 1/2 TABLET DOSE Bromfenac Sodium (Ophth) (Prolensa) 0.07 % Gladys 1 DROP OPB QAM Cholecalciferol (D 1000) 1,000 Unit Cap 3000 UNITS PO DAILY Cyanocobalamin (Vitamin B-12 1000 Mcg) 1,000 Mcg Tab 2000 MCG PO DAILY for 30 Days, #6 TAB 2 Refills Diphenoxylate/Atropine (Lomotil 2.5-0.025 mg) 1 Ea Tab 1 TAB PO QID for Diarrhea for 5 Days, #20 TAB Docusate Sodium (Colace) 100 Mg Cap 1 CAP PO BID for 30 Days, #60 CAP 2 Refills Hydrochlorothiazide (Hctz) 25 Mg Tab 25 MG PO DAILY, TAB Hydrocodone/Acetaminophen 5MG/325MG ([place] 5MG/325MG) Tab 1 TABLET PO Q6 PRN for Pain, #14 TAB Insulin Glargine (Lantus Solostar) 100 Unit/Ml Inj 12 UNITS SQ QAM, PEN Insulin Glargine (Lantus Solostar) 100 Unit/Ml Inj 10 UNITS SQ QPM, PEN Levothyroxine Sodium (Levothyroxine Sodium) 75 Mcg Tab 75 MCG PO DAILY, TAB Multiple Vitamins W/ Minerals (Icaps) 1 Cap Cap 1 CAP PO DAILY Naproxen (Aleve) 220 Mg Tab 220 MG PO BID, TAB Ocuvite Preservision (Ocuvite Preservision) 1 Tab Tab 1 TAB PO DAILY, TAB Polyethylene Glycol-Propylene (Systane) 1 Gladys Gladys 1 DROPS OP QPM, #30 ML 5 Refills Prednisone (Prednisone) 10 Mg Tab 10 MG PO DIRECTED, #12 TAB 20 mg daily for 4 days, 10 mg daily for 3 days, 5 mg daily for 2 days. Ropinirole (Requip) 1 Mg Tab 1 MG PO QPM, TAB Ropinirole (Requip) 0.5 Mg Tab 0.5 MG PO QAFTERNOON, TAB Discharge Exam ROS Constitutional: no chills, aches, sweats or fever Respiratory: no sob,cough, sputum, or wheezing Cardiac: no chest pain, palpitations, edema, orthopnea or lightheadedness GI: no abdominal pain, nausea, vomiting, diarrhea or constipation : no dysuria or hesitancy Extremities: no joint pain or weakness Skin: no rash Exam General: no distress Eyes: normal inspection, PERLL Respiratory: chest non tender, clear to auscultation, normal breath sounds, no respiratory distress, no accessory muscle use Cardiac: regular rate and rhythm, no rub or gallop, no murmur, no edema, no jvd GI/: active bowel sounds, no abd pain or tenderness, soft, non distended Extremities: normal range of motion, normal strength, non tender Neuro/Psych: alert and oriented x 3, normal mood and affect Skin: normal color, dry (Cydney Arteaga, CARLOS) Hospital Course Ms. Giraldo is an 86 year old woman here for acute diastolic CHF exacerbation. She has a history of TAVR one year ago presented with progressive shortness of breath, weight gain of about [address] angiogram was found to have congestive heart failure plus pleural effusions. The patient stated that about 2 prior she had developed wrist pain for which she was seen in the ER and started on a prednisone taper. She then ate meals prepared by her zoroastrianism over the weekend and then the day before admission had increasing shortness of breath. She was hypoxic on presentation. Acute diastolic CHF exacerbation - 1400 ml diuresed during this admission with BID dosing of 40 ml IV lasix - continued GIULIANA inhibitor - Echo showed grade II diastolic dysfunction, LVEF 55% - She did not require supplemental oxygen and was satting high 90s at time of discharge Elevated troponin - likely due to CHF as she was asymptomatic and did not have EKG changes - Troponin peaked at 2.46 and then trended back down DM II - ss, lantus - BSG AC & HS - bsgs stable throughout admission Lung mass on CT - outpatient follow up per thoracic surgery - will follow up with Dr. Lopez who saw her inpatient Hypothyroid - continued home dose levothyroxine Wrist pain - continued prednisone prescription while admitted and at discharge Total Time Spent: Less than 30 minutes This includes examination of the patient, discharge planning, medication reconciliation, and communication with other providers. (Cydney Arteaga ., CARLOS) Attending Attestation & Discharge note - Pt seen/examined, chart reviewed, and discharge care plan d/w CARLOS Arteaga. I agree w/ the silverman components of her discharge summary. 86yo female with recent polyarticular arthritis treated with prednisone along with poor dietary intake who presented with acute hypoxic respiratory failure 2nd to acute/chronic diastolic CHF. Diuresed and quickly improved. Echo with grade 2 diastolic dysfunction only. Incidentally noted to have a RML lung mass on chest CT. Seen by thoracic surgery and outpatient follow-up recommended. She will use lasix on an as needed basis after discharge for rapid weight gains ; parameters were discussed with her. Discharge exam - gen - nad neck - no JVD heart - RRR, s1, s2 lungs - CTA b/l abd - soft, NT, ND, BS+ ext - no edema Follow-up with PCP, cardiology, and thoracic surgery have been recommended. Rene Alonzo MD (Rene Alonzo MD) Discharge Instructions Please refer to the electronic Patient Visit Report (Discharge Instructions) for additional information. (Cydney Arteaga CRNP) Follow-Up Dr. Winn on SaturdayJuly 30 at 10:20 am. Please, follow up with Dr. Mejía (telemarketing fundraiser) on SaturdayAugust 08 at 4:00 pm. Follow up with Dr. Jacob (Cydney Arteaga CRNP) Additional Copies To Musa Mejía MD; Getachew Lopez MD
== END 2017-07-24 12:26 | disposition home or self-care (01) | DRG 291 ==
LOC: EDBD 09:00 → C.EDA 09:01 → C.2T 11:42 → ENRESERV 13:11
PROVIDERS: ADMIT Internal Medicine; ATTEND Internal Medicine
DX: I50.31 Acute diastolic (congestive) heart failure (principal); J96.01 Acute respiratory failure with hypoxia; J90 Pleural effusion, not elsewhere classified; I11.0 Hypertensive heart disease with heart failure; E11.9 Type 2 diabetes mellitus without complications; E03.9 Hypothyroidism, unspecified; Z79.4 Long term (current) use of insulin; Z87.891 Personal history of nicotine dependence; Z83.3 Family history of diabetes mellitus; Z82.49 Family history of ischemic heart disease and other diseases of the circulatory system

== ENCOUNTER 2017-08-11 08:27 | Inpatient (IN) | payer BC, OTHER ==
[2017-08-11] VITALS (7 sets, daily range): BP systolic 115–153; BP diastolic 58–71; PULSE 84–94; TEMP 36.4–36.8; O2SAT 91–97; Ht 157.5 cm; Wt 57.3 kg
[~2017-08-11] VITALS: Ht 157.5 cm; Wt 57.3 kg
[~2017-08-11 08:27] MED LIST changes: -CHOL100010 PO; +CHOL100041 PO; +NAPR1TAB9 PO
[2017-08-11] MEDS ORDERED: ALBUT/IPRATROP 3MG/0.5MG NEB 3 ML VIAL INH STA (08:57)
[2017-08-11 09:17] LABS: BASO % 0.4 %; BASO ABS # 0.04 K/uL (0-0.2); COMPLETE YES; EOS % 4.8 %; HEMATOCRIT 36.6 % (37-47); IG% 0.2 %; LYMPH ABS # 1.33 K/uL (1.2-3.4); MEAN CORPUSCULAR HEMOGLOBIN 30.7 pg (25-34); MEAN CORPUSCULAR HGB CONC 33.3 g/dl (32-36); MEAN PLATELET VOLUME 10.3 fL (7.4-10.4); MONO % 7.3 %; NEUT % 73.3 %; PLATELET COUNT 373 K/uL (130-400); RED BLOOD COUNT 3.98 M/uL (4.2-5.4); WHITE BLOOD COUNT 9.53 K/uL (4.8-10.8)
[2017-08-11 09:23] LABS: BUN/CREATININE RATIO 18.8 (10-20); CALCIUM 8.4 mg/dl (8.5-10.1); CREATININE 1.04 mg/dl (0.60-1.20)
[2017-08-11 09:25] LABS: PROTHROMBIN TIME (PATIENT) 10.7 SECONDS (9.0-12.0)
--- NOTE | 2017-08-11 09:27 | DIAGNOSTIC IMAGING REPORT ---
CHEST ONE VIEW PORTABLE HISTORY: 86 years-old Female cough, sob acute cough with shortness of breath COMPARISON: Chest radiograph 07/24/2017, chest CT 07/22/2017 TECHNIQUE: Portable AP view of the chest FINDINGS: Cardiac silhouette is within normal limits. Prosthetic aortic valve. Atherosclerosis of the aorta. Surgical clips project over the right mediastinum. No pneumothorax. Trace bilateral pleural effusions. Pulmonary vascular congestion with interstitial coarsening, patchy perihilar, right lateral midlung and bibasilar opacities. Unchanged mild biapical pleural thickening. Bones of the chest appear grossly intact. IMPRESSION: Findings suggest mild pulmonary edema with patchy bibasilar and lateral right midlung opacities suggesting alveolar pulmonary edema or atelectasis with superimposed pneumonia considered less likely. The above report was generated using voice recognition software. It may contain grammatical, syntax or spelling errors. Electronically signed by: Ramos Harerll M.D. 08/11/2017 9:26 AM Dictated Date/Time: 08/11/2017 9:20 AM
[2017-08-11 09:37] LABS: ALB/GLOB RATIO 0.8 (0.9-2); CKMB/CK RATIO 3.4 (0-3.0)
[2017-08-11] MEDS ORDERED: FURO-85 PO (09:50)
[2017-08-11] MEDS ORDERED: CEFTRIAXONE SOD INJ 1 GM ADDVIAL IV STA (11:00)
[2017-08-11] MEDS ORDERED: AZITHROMYCIN IV 500 MG in DEXTROSE 5% 250ML 250 ML IV ONE (11:00)
[2017-08-11] MEDS ORDERED: FUROSEMIDE 40 MG/4 ML VIAL IV STA (11:04)
[2017-08-11] MEDS ORDERED: MAGNESIUM HYDROXIDE SUSP 30 ML UDC PO PRN (11:45)
[2017-08-11] MEDS ORDERED: ZOLPIDEM TARTRATE 5 MG TAB PO PRN (11:45)
[2017-08-11] MEDS ORDERED: ALUMINUM/MAGNESIUM/SIMETH (MAALOX MAX) 30 ML UDC PO PRN (11:45)
[2017-08-11] MEDS ORDERED: ACETAMINOPHEN 325 MG TAB PO PRN (11:45)
[2017-08-11] MEDS ORDERED: ONDANSETRON INJ 2 MG/ML 2 ML VIAL IV PRN (11:45)
[2017-08-11] MEDS ORDERED: POLYETHYLENE (MIRALAX) 17 GM PACK PO PRN (11:45)
--- NOTE | 2017-08-11 11:57 | History and Physical ---
History & Physical Date of Service Aug 11, 2017. History & Physical chf [place], pna, [id number]
[2017-08-11 12:27] LABS: C-REACTIVE PROTEIN 0.65 mg/dl (0-0.29); THYROID STIMULATING HORMONE 3.54 uIu/ml (0.300-4.500)
--- NOTE | 2017-08-11 12:47 | HISTORY & PHYSICAL EXAMINATION ---
DATE OF ADMISSION: 08/11/2017 This is level 3 inpatient admission, 35 minutes. CHIEF COMPLAINT: Worsening shortness of breath for 1-1/2 days. HISTORY OF PRESENT ILLNESS: The patient is an 86-year-old white female with history of grade 2 diastolic CHF, moderate pleural effusion, hypertension, insulin-dependent diabetic neuropathy, aortic valve replacement (history of TAVR) coming into the hospital Emergency Department because of the above chief complaint. The information was per ED physician's progress note and per the patient and daughter at the bedside. The patient was in this hospital 2-1/2 weeks ago because of the same problem, which was worsening shortness of breath and was diagnosed as CHF exacerbation and fluid overload. She was responded to fluid so well and she was found to have bilateral moderate effusion. She was told do not need to have tap off the pleural fluid for now. She was discharged and followed up with PCP. She was seen by drafter apprentice, initially Lasix was as needed then was changed 20 mg p.o. daily and was advised to have additional dose if weight gain or shortness of breath. The patient reported has worsening shortness of breath since yesterday. It is not persistent, just occasionally comes and goes. She reported possible 1.5 lb weight gain, since last discharge. Sometimes, dyspnea on exertion associated with shortness of breath and productive yellow cough. Denied fever or chills. Denied obvious dyspnea on exertion. Denied orthopnea. Denied required more pillows during sleep. Denied lower extremity swelling. In the Emergency Room, she was found to have bilateral pleural effusion associated with elevated BNP. She was found to have elevated troponin as well. I was called to admit the patient. When I interviewed with the patient, she confirmed me the above information, Denied fever or chills. Denied generalized weakness. Denied facial droop, slurry speeches or local weakness. Denied chest pain, palpitation, lower extremity swelling. Denied wheezing; denied nausea, vomiting, abdominal pain, diarrhea, or constipation. Denied dysuria, urgency and frequencies. Denies skin rashes. ALLERGIES: No known drug allergy. MEDICATIONS: Taking at home include amlodipine 5 mg p.o. at bedtime, aspirin 81 mg p.o. at bedtime, Lipitor 20 mg p.o. at bedtime, Prolensa eyedrop 1 drop OPB q.a.m., vitamin D 1000 International Unit tablets 2000 units p.o. daily, vitamin B12 1000 mcg tab 2000 mcg p.o. daily, Lomotil 1 tab p.o. q.i.d., Lasix 20 mg p.o. daily, insulin Glargine 12 units q.a.m. and 10 units subQ q.p.m., levothyroxine 75 mcg p.o. daily, multiple vitamin 1 tab p.o. daily, Ocuvite 1 tab p.o. daily, Systane 1 drop OP q.p.m., Requip 1 mg p.o. q.p.m. REVIEW OF SYSTEMS: Please see HPI, otherwise 14 points organ system review were negative. PHYSICAL EXAMINATION: VITAL SIGNS: Temperature 36.3, pulse 91, respiration rate 20; blood pressure initially was 165/102, currently is 128/58; pulse ox was 93% on room air, currently is on SaO2. GENERAL: The patient is white female, pleasant, awake, alert and orientated, conversational, follows all commands. No acute distress. HEAD: Normocephalic. EYES: Pupils equal, round responds to light. EARS: Ear was normal. NOSE: Normal. NECK: Supple. Thyroid no enlargement. Trachea in the midline. HEART: Regular rhythm. S1, S2. LUNGS: Decreased breathing sounds. There was no wheezing, but bilateral lower lung has fine crackles. ABDOMEN: Soft, nontender. Bowel sound was positive. GENITOURINARY AND RECTAL: Deferred. EXTREMITIES: Bilateral lower extremity, no swelling. Homans sign was negative. Calf was nontender. NEUROLOGICAL EVALUATION: Cranial nerves II-XII was intact. There was no local deficit. MUSCULOSKELETAL: No limited range of motion. Normal muscle tone. LABORATORY STUDIES: WBC 9.5, hemoglobin 12, platelets 373. Sodium 134, potassium 4.0, BUN 20, creatinine 1.4. Blood glucose was 74. Neutrophil was 73%. The patient got a nebulizer treatment in the Emergency Room, BUN 20, and creatinine 1.1. CK-MB 5.4, troponin 0.15, compared to the day on her discharge troponin was 2.08, CK-MB was 6.5. BNP was 3206. There was no recent TSH done. IMAGING STUDIES: Today's chest x-ray shows mild pulmonary edema with patchy basilar and lateral right middle lung opacities, suggesting alveolar pulmonary edema with superimposed pneumonia, considered less likely. EKG in the Emergency Room which was sinus rhythm with premature atrial complex. There was left atrial enlargement, left bundle branch block, which is not new. ASSESSMENT AND PLAN: An 86-year-old white female with the conditions below: 1. Likely acute on chronic diastolic congestive heart failure exacerbation associated with difficulty breathing, mild weight gain, fine crackles in bilateral lower lung and elevated BNP. In last admission, the patient was having grade 2 diastolic dysfunction. 2. Possibly has mild pneumonia associated with difficulty breathing. Yellow sputum, cough and x-ray shows possible right middle lobe of the lung has superimposed increased density. 3. Accelerated hypertension upon arriving ED with blood pressure 165/102, currently has improved. 4. Minimal elevated troponin of 0.15, very likely from previous elevation of troponin which was 2.08, about 2-1/2 weeks ago and the patient has no chest pain, I dodn't believe has any ACS going on. 5. Hypothyroidism. 6. Dyslipidemia. 7. Vitamin D deficiency. 8. Vitamin B12 deficiency. 9. Neuropathy. PLAN: 1. Because patient has the above conditions, acute on chronic diastolic CHF exacerbation and possible mild pneumonia with elevated troponin, will admit the patient to the hospital, CHF protocol, tele monitoring, in and out, fluid restriction to 1-1/2 liters per day, The patient had Lasix 40 mg IV in the Emergency Room, will continue Lasix but the first dose will be tomorrow. Continue home medications include beta leesa and GIULIANA inhibitor. CHF education. Include a low sodium diet, water restriction, etc. 2. For possible community-acquired pneumonia, will continue antibiotic of Rocephin and azithromycin. We will give nebulizer treatment and the Robitussin for the cough. 3. History of pleural effusion, bilaterally moderate, discussed with the patient. We will try water pills for now for diuresis, if needed, may need a thoracentesis for the remove and evaluation of the pleural fluid. 4. May need a cardiology consultation. 5. continue levothyroxine, check TSH levels, will continue glargine and insulin sliding scale, diabetic type 2 diet, and recent 3 weeks ago A1C was 6.9, so we are not checking this time. Continue statin for dyslipidemia, will trend troponin. Follow up blood cultures. 6. Deep venous thrombosis prophylaxis is covered. 7. The patient is full code. MTDD
[2017-08-11] MEDS ORDERED: DEXTROSE 50% 50 ML SYR IV PRN (14:15)
[2017-08-11] MEDS ORDERED: GLUCOSE 10 TABS/TUBE PO PRN (14:15)
[2017-08-11] MEDS ORDERED: GLUCAGON FOR INJ 1 MG VIAL SQ PRN (14:15)
[2017-08-11] MEDS ORDERED: GLUCOSE 40% GEL 15 GM TUBE PO PRN (14:15)
--- NOTE | 2017-08-11 14:50 | EMERGENCY ROOM VISIT NOTE ---
History Report prepared by Sumeet: Victorino Robles Under the Supervision of: Dr. Vaibhav Garcia D.O. First contact with patient: 08:40 Chief Complaint: RESPIRATORY PROBLEMS Stated Complaint: BREATHING DIFFICULTY History of Present Illness The patient is a 86 year old female who presents to the Emergency Room with complaints of respiratory problems that began 1.5 days ago. She was here in the hospital 1 week ago with shortness of breath and was diagnosed with fluid overload. She was then discharged on Lasix prn. She was doing well and taking it as needed. However, she followed up with her Hydropress Operator two days ago who told her to take Lasix daily. She was doing well until yesterday. She began to feel very short of breath with a productive cough. She denies any fevers. She has a past history of an aortic valve replacement in 2016. She received a DuoNeb en route which helped her symptoms. Source of History: patient Onset: 1.5 days ago Position: other (Respiratory System) Symptom Intensity: moderate Quality: other (Shortness of breath) Timing: constant Modifying Factors (Relieving): other (DuoNeb) Associated Symptoms: + cough, No fevers Review of Systems See HPI for pertinent positives & negatives. A total of 10 systems reviewed and were otherwise negative. Past Medical & Surgical Medical Problems: (1) Acute diastolic heart failure (2) chf exac, pna (3) Hypertension (4) Insulin dependent diabetes mellitus (5) Neuropathy Surgical Problems: (1) Aortic valve replaced (2) S/P TAVR (transcatheter aortic valve replacement) Family History Diabetes mellitus FH: hypertension Heart disease Social History Smoking Status: Former Smoker Smokeless Tobacco Use: No Drug Use: none Marital Status: Occupation Status: retired Current/Historical Medications Scheduled Amlodipine (Norvasc), 5 MG PO HS Aspirin (Aspirin Ec), 81 MG PO HS Atorvastatin (Lipitor), 20 MG PO HS Benazepril (Lotensin), 20 MG PO DAILY Bromfenac Sodium (Ophth) (Prolensa), 1 DROP OPB QAM Cholecalciferol (D 1000), 2,000 UNITS PO DAILY Cyanocobalamin (Vitamin B-12 1000 Mcg), 2,000 MCG PO DAILY Diphenoxylate/Atropine (Lomotil 2.5-0.025 mg), 1 TAB PO QID Furosemide (Lasix), 20 MG PO DAILY Insulin Glargine (Lantus Solostar), 12 UNITS SQ QAM Insulin Glargine (Lantus Solostar), 10 UNITS SQ QPM Levothyroxine Sodium (Levothyroxine Sodium), 75 MCG PO DAILY Multiple Vitamins W/ Minerals (Icaps), 1 CAP PO DAILY Ocuvite Preservision (Ocuvite Preservision), 1 TAB PO DAILY Polyethylene Glycol-Propylene (Systane), 1 DROPS OP QPM Ropinirole (Requip), 1 MG PO QPM Allergies Coded Allergies: No Known Allergies (Unverified , 08/11/17) Physical Exam Vital Signs Date Time Temp Pulse Resp B/P (MAP) Pulse Ox O2 Delivery O2 Flow Rate FiO2 08/11/17 09:56 84 20 128/58 97 Nasal Cannula 2.0 08/11/17 09:19 77 08/11/17 09:11 95 Nasal Cannula 2.0 08/11/17 08:50 94 Nasal Cannula 2.0 08/11/17 08:36 36.3 91 20 165/102 93 Room Air 08/11/17 08:36 92 Room Air Physical Exam CONSTITUTIONAL/VITAL SIGNS: Reviewed / noted above. GENERAL: Non-toxic in appearance. INTEGUMENTARY: Warm, dry, and [place]. HEAD: Normocephalic. EYES: without scleral icterus or trauma. ENT/OROPHARYNX: clear and moist. LYMPHADENOPATHY/NECK: Is supple without lymphadenopathy or meningismus. RESPIRATORY: Bibasilar crackles. No evidence for respiratory distress. CARDIOVASCULAR: Regular rate and rhythm. GI/ABDOMEN: Soft and nontender. No organomegaly or pulsatile mass. No rebound or guarding. Normal bowel sounds. EXTREMITIES: Warm and well perfused. BACK: No CVA tenderness. NEUROLOGICAL: Intact without focal deficits. PSYCHIATRIC: normal affect. MUSCULOSKELETAL: Normally developed with good muscle tone. Medical Decision & Procedures ER Provider Diagnostic Interpretation: Radiology results as stated below per my review and radiologist interpretation: CHEST ONE VIEW PORTABLE HISTORY: 86 years-old Female cough, sob acute cough with shortness of breath COMPARISON: Chest radiograph 07/24/2017, chest CT 07/22/2017 TECHNIQUE: Portable AP view of the chest FINDINGS: Cardiac silhouette is within normal limits. Prosthetic aortic valve. Atherosclerosis of the aorta. Surgical clips project over the right mediastinum. No pneumothorax. Trace bilateral pleural effusions. Pulmonary vascular congestion with interstitial coarsening, patchy perihilar, right lateral midlung and bibasilar opacities. Unchanged mild biapical pleural thickening. Bones of the chest appear grossly intact. IMPRESSION: Findings suggest mild pulmonary edema with patchy bibasilar and lateral right midlung opacities suggesting alveolar pulmonary edema or atelectasis with superimposed pneumonia considered less likely. The above report was generated using voice recognition software. It may contain grammatical, syntax or spelling errors. Electronically signed by: Ramos Harrell M.D. 08/11/2017 9:26 AM Dictated Date/Time: 08/11/2017 9:20 AM Laboratory Results 08/11/17 08:45 Red Blood Count 3.98, Mean Corpuscular Volume 92.0, Mean Corpuscular Hemoglobin 30.7, Mean Corpuscular Hemoglobin Concent 33.3, Mean Platelet Volume 10.3, Neutrophils (%) (Auto) 73.3, Lymphocytes (%) (Auto) 14.0, Monocytes (%) (Auto) 7.3, Eosinophils (%) (Auto) 4.8, Basophils (%) (Auto) 0.4, Neutrophils # (Auto) 6.98, Lymphocytes # (Auto) 1.33, Monocytes # (Auto) 0.70, Eosinophils # (Auto) 0.46, Basophils # (Auto) 0.04 08/11/17 08:45 Test 08/11/17 08:45 White Blood Count 9.53 K/uL (4.8-10.8) Red Blood Count 3.98 M/uL (4.2-5.4) Hemoglobin 12.2 g/dL (12.0-16.0) Hematocrit 36.6 % (37-47) Mean Corpuscular Volume 92.0 fL (80-100) Mean Corpuscular Hemoglobin 30.7 pg (25-34) Mean Corpuscular Hemoglobin Concent 33.3 g/dl (32-36) Platelet Count 373 K/uL (130-400) Mean Platelet Volume 10.3 fL (7.4-10.4) Neutrophils (%) (Auto) 73.3 % Lymphocytes (%) (Auto) 14.0 % Monocytes (%) (Auto) 7.3 % Eosinophils (%) (Auto) 4.8 % Basophils (%) (Auto) 0.4 % Neutrophils # (Auto) 6.98 K/uL (1.4-6.5) Lymphocytes # (Auto) 1.33 K/uL (1.2-3.4) Monocytes # (Auto) 0.70 K/uL (0.11-0.59) Eosinophils # (Auto) 0.46 K/uL (0-0.5) Basophils # (Auto) 0.04 K/uL (0-0.2) RDW Standard Deviation 50.0 fL (36.4-46.3) RDW Coefficient of Variation 14.7 % (11.5-14.5) Immature Granulocyte % (Auto) 0.2 % Immature Granulocyte # (Auto) 0.02 K/uL (0.00-0.02) Erythrocyte Sedimentation Rate 38 mm/hr (0-21) Prothrombin Time 10.7 SECONDS (9.0-12.0) Prothromb Time International Ratio 1.0 (0.9-1.1) Activated Partial Thromboplast Time 25.6 SECONDS (21.0-31.0) Partial Thromboplastin Ratio 1.0 Anion Gap 8.0 mmol/L (3-11) Est Creatinine Clear Calc Drug Dose 31.3 ml/min Estimated GFR () 56.7 Estimated GFR (Non- 49.0 BUN/Creatinine Ratio 18.8 (10-20) Calcium Level 8.4 mg/dl (8.5-10.1) Total Bilirubin 0.5 mg/dl (0.2-1) Aspartate Amino Transf (AST/SGOT) 18 U/L (15-37) Alanine Aminotransferase (ALT/SGPT) 27 U/L (12-78) Alkaline Phosphatase 69 U/L (45-117) Total Creatine Kinase 158 U/L (26-192) Creatine Kinase MB 5.4 ng/ml (0.5-3.6) Creatine Kinase MB Ratio 3.4 (0-3.0) Troponin I 0.151 ng/ml (0-0.045) C-Reactive Protein 0.65 mg/dl (0-0.29) Pro-B-Type Natriuretic Peptide 3206 pg/ml (0-1800) Total Protein 6.8 gm/dl (6.4-8.2) Albumin 3.1 gm/dl (3.4-5.0) Globulin 3.7 gm/dl (2.5-4.0) Albumin/Globulin Ratio 0.8 (0.9-2) Procalcitonin < 0.05 ng/ml (0-0.5) Thyroid Stimulating Hormone (TSH) 3.540 uIu/ml (0.300-4.500) Laboratory results as stated above per my review. Medications Administered Medications (Trade) Dose Ordered Sig/David Route Start Time Stop Time Status Last Admin Dose Admin Albuterol/ Ipratropium (Duoneb) 3 ml NOW STAT INH 08/11/17 08:57 08/11/17 08:59 DC 08/11/17 09:11 3 ML Azithromycin 500 mg/Dextrose 255 ml @ 125 mls/hr ONE ONCE IV 08/11/17 11:00 08/11/17 13:02 DC 08/11/17 12:30 125 MLS/HR Ceftriaxone Sodium (Rocephin Inj) 1 gm NOW STAT IV 08/11/17 11:00 08/11/17 11:01 DC 08/11/17 11:56 1 GM Furosemide (Lasix Inj) 40 mg NOW STAT IV 08/11/17 11:04 08/11/17 11:05 DC 08/11/17 11:56 40 MG ECG Indication: SOB/dyspnea Rate (beats per minute): 92 Rhythm: sinus rhythm Findings: LBBB, PVC, no acute ischemic change Comparison ECG Date: 07/23/17 Change: LBBB is chronic ED Course 0840: Previous medical records were reviewed. The patient was evaluated in room B2. A complete history and physical examination was performed. 0857: Ordered DuoNeb 3 ml INH 1100: Ordered Rocephin Inj 1 gm IV, Azithromycin 500 mg/Dextrose 255 ml @ 125 mls/hr IV 1104: Ordered Lasix 40 mg IV 1105: On reevaluation, the patient is resting. I discussed the results and findings with her. She verbalized agreement of the treatment plan. I spoke with Dr. Strong of the [place] [facility]. The patient will be evaluated for further management and care. Medical Decision Differentials considered include acute myocardial infarction, acute coronary syndrome, myocarditis, pericarditis, pericardial effusions /tamponade, esophageal perforation, pulmonary embolism, pneumonia, pneumothorax, cardiomyopathy, congestive heart, anemia, and COPD/asthma exacerbation. This is a 82-year-old female who presents to the ED with a chief complaint of shortness of breath as well as a productive yellow sputum with cough. The patient was transported here by EMS received a DuoNeb treatment. She states that this did help some. Her physical exam reveals some bibasilar crackles. She has had the symptoms for about 24-48 hours. Her vital signs are stable. She is not hypoxic or febrile. A chest x-ray reveals mild pulmonary edema as well as findings suggesting pneumonia is correlated with her symptoms. Her EKG reveals a sinus rhythm without ischemic changes. There is a chronic left lower quadrant. CBC is unremarkable as is the complete metabolic panel. Troponin is slightly elevated, BNP is elevated as well. The patient was treated with IV antibiotics as well as IV Lasix. She'll be seen by the hospitalist for further inpatient evaluation and care. Medication Reconcilliation Current Medication List: was personally reviewed by me Blood Pressure Screening Patient's blood pressure: Elevated blood pressure Blood pressure disposition: Elevated BP felt to be situational Consults Time Called: 1100 Consulting Physician: Dr. Ligia GARCIA Returned Call: [phone] Discussed the patient's case. The patient will be evaluated for further treatment and disposition. Impression Primary Impression: PNA (pneumonia) Additional Impressions: CHF (congestive heart failure) Elevated troponin Scribe Attestation The scribe's documentation has been prepared under my direction and personally reviewed by me in its entirety. I confirm that the note above accurately reflects all work, treatment, procedures, and medical decision making performed by me. Departure Information Dispostion Being Evaluated By Hospitalist Referrals Lottie Winn MD (PCP) Patient Instructions My [facility] Problem Qualifiers
[2017-08-11] MEDS: ALBUT/IPRATROP 3MG/0.5MG NEB 3 ML VIAL INH SCH ×2 (14:52→19:11)
[2017-08-11] MEDS ORDERED: ENOXAPARIN 40 MG/0.4 ML SYR SC SCH (15:00)
[2017-08-11] MEDS ORDERED: NURSING VERBAL MED ORDER ONE (16:00)
[2017-08-11] MEDS: ROPINIROLE HCL 0.25 MG TAB PO PRN (16:53)
[2017-08-11] MEDS: GUAIFENESIN SUGAR FREE 100 MG/5 ML UDC PO SCH (16:56)
[2017-08-11] MEDS: ENOXAPARIN 30 MG/0.3 ML SYR SQ SCH (16:56)
[2017-08-11] MEDS: DIPHENOXYLATE/ATROPINE 2.5/0.025MG TAB PO SCH ×2 (17:23→20:36)
[2017-08-11] MEDS: INSULIN ASPART 100 UNITS/ML 3 ML PEN SC SCH ×2 (17:25→20:45)
[2017-08-11] MEDS: ROPINIROLE HCL 1 MG TAB PO SCH (20:35)
[2017-08-11] MEDS: ATORVASTATIN 20 MG TAB PO SCH (20:35)
[2017-08-11] MEDS: ASPIRIN 81 MG ECTAB PO SCH (20:36)
[2017-08-11] MEDS: AMLODIPINE BESYLATE 5 MG TAB PO SCH (20:36)
[2017-08-11] MEDS: INSULIN GLARGINE SOLOSTAR 100 UNITS/ML 3 ML PEN SQ SCH (20:49)
[2017-08-11] MEDS ORDERED: NON-FORMULARY MEDICATION (Polyethylene Glycol-Propylene (Systane) 1 DROPS) OP SCH (21:00)
[2017-08-12] VITALS (15 sets, daily range): BP systolic 112–155; BP diastolic 53–80; PULSE 64–103; TEMP 36.6–36.8; O2SAT 86–94
[2017-08-12 02:04] LABS: BASO % 0.3 %; BASO ABS # 0.03 K/uL (0-0.2); COMPLETE YES; EOS % 5.1 %; HEMATOCRIT 32.1 % (37-47); IG% 0.1 %; LYMPH % 24.2 %; LYMPH ABS # 2.18 K/uL (1.2-3.4); MEAN CELL VOLUME 92.2 fL (80-100); MEAN CORPUSCULAR HEMOGLOBIN 31.3 pg (25-34); MEAN PLATELET VOLUME 10.1 fL (7.4-10.4); MONO % 11.1 %; NEUT % 59.2 %; PLATELET COUNT 317 K/uL (130-400); RED BLOOD COUNT 3.48 M/uL (4.2-5.4)
[2017-08-12 02:27] LABS: BUN/CREATININE RATIO 18.3 (10-20); CALCIUM 7.9 mg/dl (8.5-10.1); CREATININE 1.68 mg/dl (0.60-1.20); POTASSIUM 4.2 mmol/L (3.5-5.1)
[2017-08-12 02:36] LABS: CKMB/CK RATIO 2.5 (0-3.0)
[2017-08-12] MEDS: LEVOTHYROXINE 75 MCG TAB PO SCH (04:40)
[2017-08-12] MEDS: GUAIFENESIN SUGAR FREE 100 MG/5 ML UDC PO SCH ×5 (04:40→23:36)
[2017-08-12] MEDS: INSULIN ASPART 100 UNITS/ML 3 ML PEN SC SCH ×4 (06:30→20:42)
[2017-08-12] MEDS: ALBUT/IPRATROP 3MG/0.5MG NEB 3 ML VIAL INH SCH ×4 (07:30→19:38)
[2017-08-12] MEDS: INSULIN GLARGINE SOLOSTAR 100 UNITS/ML 3 ML PEN SQ SCH ×2 (07:57→20:43)
[2017-08-12] MEDS: CHOLECALCIFEROL 1000 INTER.UNIT TAB PO SCH (08:02)
[2017-08-12] MEDS: CEROVITE ADV FORMULA TAB PO SCH (08:03)
[2017-08-12] MEDS: DIPHENOXYLATE/ATROPINE 2.5/0.025MG TAB PO SCH ×4 (08:03→20:44)
[2017-08-12] MEDS: CYANOCOBALAMIN 500 MCG TAB (VIT B-12) PO SCH (08:10)
[2017-08-12] MEDS ORDERED: MULTIPLE VITAMINS PO SCH (09:00)
[2017-08-12] MEDS ORDERED: MINERALS PO SCH (09:00)
[2017-08-12] MEDS ORDERED: CEFTRIAXONE SOD INJ 1 GM in DEXTROSE 5% ADD-VANTAGE 50ML 50 ML IV SCH (09:00)
[2017-08-12] MEDS ORDERED: FUROSEMIDE INJ 40 MG in SYRINGE 0 ML IV SCH (09:00)
[2017-08-12] MEDS ORDERED: AZITHROMYCIN IV 500 MG in DEXTROSE 5% 250ML 250 ML IV SCH (09:00)
[2017-08-12] MEDS ORDERED: ENALAPRIL MALEATE 10 MG TAB PO SCH (09:00)
[2017-08-12] MEDS ORDERED: HydrALAZINE HCL 20 MG/ML VIAL IV. PRN (10:30)
--- NOTE | 2017-08-12 10:56 | Hospitalist Progress Note ---
Hospitalist Progress Note Date of Service Aug 12, 2017. (Katerine Rene ., PA-C) Subjective Pt evaluation today including: conversation w/ patient, physical exam, lab review, review of studies, review of inpatient medication list Voiding: no voiding problems Patient currently sitting up in bed. No signs of acute distress. Cleaned herself up this AM w/out significant difficulty. Currently denies any SOB, but states it occurs w/ activity. +Cough w/ yellow sputum production, but denies any current production with cough since admission. Eating and drinking OK. Patient denies any fever, chills, sweats, lightheadedness, dizziness, vision changes, CP, palpitations, edema, SOB, wheezing, abdominal pain, nausea, vomiting, diarrhea, urinary symptoms, melena, numbness/tingling, weakness, muscle/joint pain, anxiety/depression, active bleeding, or new skin discoloration/changes. (Katerine Rene ., PA-C) Medications Current Inpatient Medications Medications (Trade) Dose Ordered Sig/David Route Start Time Stop Time Status Last Admin Dose Admin Acetaminophen (Tylenol Tab) 650 mg Q4H PRN PO 08/11/17 11:45 09/10/17 11:44 Al Hydrox/Mg Hydrox/Simethicone (Maalox Max Susp) 15 ml Q4H PRN PO 08/11/17 11:45 09/10/17 11:44 Magnesium Hydroxide (Milk Of Magnesia Susp) 30 ml Q12H PRN PO 08/11/17 11:45 09/10/17 11:44 Zolpidem Tartrate (Ambien Tab) 5 mg HSZ PRN PO 08/11/17 11:45 09/10/17 11:44 Ondansetron HCl (Zofran Inj) 4 mg Q6H PRN IV 08/11/17 11:45 09/10/17 11:44 Polyethylene (Miralax Powder Packet) 17 gm DAILY PRN PO 08/11/17 11:45 09/10/17 11:44 Albuterol/ Ipratropium (Duoneb) 3 ml QIDR INH 08/11/17 16:00 09/10/17 15:59 08/11/17 19:11 3 ML Guaifenesin (Robitussin Sugar Free Syrup) 100 mg Q6HWA PO 08/11/17 18:00 09/10/17 17:59 08/12/17 04:40 100 MG Amlodipine Besylate (Norvasc Tab) 5 mg HS PO 08/11/17 21:00 09/10/17 20:59 08/11/17 20:36 5 MG Aspirin (Ecotrin Tab) 81 mg HS PO 08/11/17 21:00 09/10/17 20:59 08/11/17 20:36 81 MG Atorvastatin Calcium (Lipitor Tab) 20 mg HS PO 08/11/17 21:00 09/10/17 20:59 08/11/17 20:35 20 MG Cyanocobalamin (Vitamin B-12 Tab) 2,000 mcg DAILY PO 08/12/17 09:00 09/11/17 08:59 08/12/17 08:10 2,000 MCG Diphenoxylate HCl/ Atropine (Lomotil Tab) 1 tab QID PO 08/11/17 17:00 09/10/17 16:59 08/12/17 08:03 1 TAB Insulin Glargine (Lantus Solostar Pen) 10 units QPM SQ 08/11/17 21:00 09/10/17 20:59 08/11/17 20:49 10 UNITS Insulin Glargine (Lantus Solostar Pen) 12 units QAM SQ 08/12/17 09:00 09/11/17 08:59 08/12/17 07:57 12 UNITS Levothyroxine Sodium (Synthroid Tab) 75 mcg DAILYBB PO 08/12/17 06:30 09/11/17 06:29 08/12/17 04:40 75 MCG Multivitamins/ Minerals (Multivitamin W/ Minerals Tab) 1 tab DAILY PO 08/12/17 09:00 09/11/17 08:59 08/12/17 08:03 1 TAB Ropinirole HCl (Requip Tab) 1 mg QPM PO 08/11/17 21:00 09/10/17 20:59 08/11/17 20:35 1 MG Enalapril Maleate (Vasotec Tab) 20 mg DAILY PO 08/12/17 09:00 09/11/17 08:59 08/12/17 08:03 20 MG Miscellaneous Information (Order Awaiting Action) 1 ea QS N/A 08/11/17 16:00 09/10/17 15:59 Cholecalciferol (Vitamin D Tab) 2,000 inter.unit DAILY PO 08/12/17 09:00 09/11/17 08:59 08/12/17 08:02 2,000 INTER.UNIT Insulin Aspart (novoLOG ASPART) SLIDING SCALE G... ACHS SC 08/11/17 16:30 09/10/17 16:29 08/11/17 17:25 6 UNITS Furosemide 40 mg/ Syringe 4 ml @ 4 mls/min DAILY IV 08/12/17 09:00 09/11/17 08:59 08/12/17 08:02 4 MLS/MIN Ceftriaxone Sodium 1 gm/ Dextrose 50 ml @ 100 mls/hr Q24H IV 08/12/17 09:00 08/19/17 08:59 08/12/17 08:02 100 MLS/HR Azithromycin 500 mg/Dextrose 255 ml @ 125 mls/hr DAILY IV 08/12/17 09:00 08/19/17 08:59 08/12/17 08:10 125 MLS/HR Glucose (Glucose 40% Gel) 15-30 GRAMS 15 GRAMS... UD PRN PO 08/11/17 14:15 09/10/17 14:14 Glucose (Glucose Chew Tab) 4-8 Tablets 4 Tabl... UD PRN PO 08/11/17 14:15 09/10/17 14:14 Dextrose (Dextrose 50% 50ML Syringe) 25-50ML OF 50% DW IV FOR... UD PRN IV 08/11/17 14:15 09/10/17 14:14 Glucagon (Glucagon Inj) 1 mg UD PRN SQ 08/11/17 14:15 09/10/17 14:14 Enoxaparin Sodium (Lovenox Inj) 30 mg DAILY@1800 SQ 08/11/17 18:00 09/10/17 17:59 08/11/17 16:56 30 MG Ropinirole HCl (Requip Tab) 0.5 mg DAILY PRN PO 08/11/17 16:15 09/10/17 16:14 08/11/17 16:53 0.5 MG (Katerine Rene, MIRANDA) Objective Vital Signs Date Time Temp Pulse Resp B/P (MAP) Pulse Ox O2 Delivery O2 Flow Rate FiO2 08/12/17 08:00 Room Air 08/12/17 07:59 36.8 89 18 155/69 (97) 94 Nasal Cannula 2.0 08/12/17 07:42 87 16 91 Nasal Cannula 1.0 08/12/17 04:00 93 Room Air 08/12/17 03:27 91 Nasal Cannula 2.0 08/12/17 03:25 36.6 83 20 126/80 (95) 86 Room Air 08/12/17 00:00 93 Room Air 08/11/17 23:07 36.7 86 20 115/58 (77) 91 Room Air 08/11/17 20:40 36.8 84 18 132/71 (91) 92 Room Air 08/11/17 20:00 Room Air 08/11/17 19:11 87 18 93 Room Air 08/11/17 17:29 94 Room Air 08/11/17 16:00 Room Air 08/11/17 14:53 94 16 95 Nasal Cannula 2.0 08/11/17 14:27 36.4 84 18 153/63 (93) 92 Room Air 08/11/17 13:32 87 18 141/64 94 Room Air 08/11/17 12:13 73 17 134/56 95 Nasal Cannula 2.0 08/11/17 11:40 97 Nasal Cannula 2.0 (Katerine Rene, PA-C) Physical Exam General Appearance: no apparent distress, + pertinent finding (O2 NC ) Eyes: normal inspection, PERRL ENT: + pertinent finding (Hard of hearing ) Neck: supple, no JVD Respiratory/Chest: lungs clear, no respiratory distress, no accessory muscle use Cardiovascular: regular rate, rhythm, + systolic murmur Abdomen: normal bowel sounds, non tender, soft Extremities: no pedal edema, no calf tenderness Neurologic/Psychiatric: alert, normal mood/affect, oriented x 3 Skin: normal color, warm/dry, no rash (Katerine Rene, PA-C) Laboratory Results Last 24 Hours Test 08/11/17 16:31 08/11/17 17:42 08/11/17 20:45 08/12/17 01:41 Bedside Glucose 188 mg/dl 82 mg/dl Total Creatine Kinase 210 U/L 206 U/L Creatine Kinase MB 6.2 ng/ml 5.1 ng/ml Creatine Kinase MB Ratio 3.0 2.5 Troponin I 0.135 ng/ml 0.168 ng/ml White Blood Count 9.00 K/uL Red Blood Count 3.48 M/uL Hemoglobin 10.9 g/dL Hematocrit 32.1 % Mean Corpuscular Volume 92.2 fL Mean Corpuscular Hemoglobin 31.3 pg Mean Corpuscular Hemoglobin Concent 34.0 g/dl Platelet Count 317 K/uL Mean Platelet Volume 10.1 fL Neutrophils (%) (Auto) 59.2 % Lymphocytes (%) (Auto) 24.2 % Monocytes (%) (Auto) 11.1 % Eosinophils (%) (Auto) 5.1 % Basophils (%) (Auto) 0.3 % Neutrophils # (Auto) 5.32 K/uL Lymphocytes # (Auto) 2.18 K/uL Monocytes # (Auto) 1.00 K/uL Eosinophils # (Auto) 0.46 K/uL Basophils # (Auto) 0.03 K/uL RDW Standard Deviation 50.0 fL RDW Coefficient of Variation 14.9 % Immature Granulocyte % (Auto) 0.1 % Immature Granulocyte # (Auto) 0.01 K/uL Sodium Level 136 mmol/L Potassium Level 4.2 mmol/L Chloride Level 103 mmol/L Carbon Dioxide Level 26 mmol/L Anion Gap 7.0 mmol/L Blood Urea Nitrogen 31 mg/dl Creatinine 1.68 mg/dl Est Creatinine Clear Calc Drug Dose 19.4 ml/min Estimated GFR () 31.8 Estimated GFR (Non- 27.4 BUN/Creatinine Ratio 18.3 Random Glucose 71 mg/dl Calcium Level 7.9 mg/dl Magnesium Level 2.0 mg/dl Pro-B-Type Natriuretic Peptide 5834 pg/ml Test 08/12/17 07:47 Bedside Glucose 89 mg/dl (Katerine Rene, BARBYC) Assessment and Plan The patient is an 86-year-old white female with history of grade 2 diastolic CHF , moderate pleural effusion, hypertension, insulin-dependent diabetic neuropathy , aortic valve replacement (history of TAVR) coming into the hospital Emergency Department because of worsening SOB x1.5 days. Worsening SOB, ?secondary to acute on chronic diastolic CHF exacerbation vs URI: - Ad[facility] monitoring - Trending cardiac enzymes- chronically elevated trop - O2 protocol, wean as tolerated- does NOT wear O2 supplement at home - Monitor I&Os and daily weights- base weight around 57 kg - Treated w/ IV Lasix 40 mg x2- bump in Cr. will d/c- home regimen is Lasix 20 mg PO daily - IV Rocephin and Azithromycin- will d/c Rocephin today; continue Azithromycin x5 days, transition to PO tomorrow- last day of treatment 08/15 - Robitussin q6 hrs for cough - DuoNebs QID and PRN for SOB/wheezing - BCx and sputum culture pending COLTEN on CKD stage III, secondary to IV Lasix treatment: - Avoid nephrotoxic agents and renally dose medications as appropriate -- Holding Lasix and Vasotec - Follow PRP T2DM: - Continue Lantus 12 u QAM and 10 u QPM - BSG ACHS and ISS HTN: - Hold Vasotec as above - Continue Norvasc 5 mg daily - Hydralazine IV PRN HLD: Lipitor 20 mg HS Hypothyroidism- TSH WNL: Continue Synthroid 75 mcg daily RLS: Continue Requip 1 mg HS and 0.5 mg PRN DVT prophylaxis: Lovenox SQ daily Code Status: LEVEL I, FULL Dispo: Discharge to home once medically stable- hopefully within the next 1-2 days (Katerine Rene ., PA-C) I agree with PA assessment and plan and have seen and examined pt myself Resting comfortably in bed VSS No signs of CHF exab CXR reviewed Hold off on lasix and ACEI due to worsening renal insuff Pt states feeling better Will try to wean off O2 May need 2 step Cont azithromycin (Deangelo Egan D.O.)
[2017-08-12] MEDS: ROPINIROLE HCL 0.25 MG TAB PO PRN (12:20)
--- NOTE | 2017-08-12 12:29 | Medical Student: [facility] ---
Med Student Progress Note Date of Service Aug 12, 2017. Subjective Pt evaluation today including: conversation w/ patient, physical exam, chart review, lab review, review of studies, review of inpatient medication list Voiding: no voiding problems 86 year old female with history of diastolic heart failure 18 months post aortic valve replacement presenting with shortness of breath 2 weeks following admission for CHF exacerbation. She was given 40 mg IV Lasix on admission and started on IV ceftriaxone and azithromycin for suspected pneumonia. Today she is very pleasant. She complains of fatigue. Her shortness of breath is constant and improving. She has a productive cough, but does not cough while I am in the room. She has mild coryza. BNP was moderately elevated. Creatinine has bumped from 1 to 1.6. She is on fluid restriction. Review of Systems Constitutional: + weakness, + fatigue, No fever, No chills, No weight loss ENT: + hearing loss (chronic) Respiratory: + cough, + sputum, + shortness of breath, + dyspnea at rest, No wheezing, No hemoptysis Cardiac: No chest pain, No orthopnea, No edema, No palpitations Abdomen: No pain, No nausea, No vomiting, No diarrhea Female : No dysuria, No urinary frequency Endo: + fatigue Skin: No rash, No itch All Other Systems: Reviewed and Negative Objective Vital Signs Date Time Temp Pulse Resp B/P (MAP) Pulse Ox O2 Delivery O2 Flow Rate FiO2 08/12/17 11:41 92 16 92 Nasal Cannula 1.0 08/12/17 11:18 36.6 71 16 112/53 (72) 91 Nasal Cannula 2.0 08/12/17 08:00 Room Air 08/12/17 07:59 36.8 89 18 155/69 (97) 94 Nasal Cannula 2.0 08/12/17 07:42 87 16 91 Nasal Cannula 1.0 08/12/17 04:00 93 Room Air 08/12/17 03:27 91 Nasal Cannula 2.0 08/12/17 03:25 36.6 83 20 126/80 (95) 86 Room Air 08/12/17 00:00 93 Room Air 08/11/17 23:07 36.7 86 20 115/58 (77) 91 Room Air 08/11/17 20:40 36.8 84 18 132/71 (91) 92 Room Air 08/11/17 20:00 Room Air 08/11/17 19:11 87 18 93 Room Air 08/11/17 17:29 94 Room Air 08/11/17 16:00 Room Air 08/11/17 14:53 94 16 95 Nasal Cannula 2.0 08/11/17 14:27 36.4 84 18 153/63 (93) 92 Room Air 08/11/17 13:32 87 18 141/64 94 Room Air 08/11/17 12:13 73 17 134/56 95 Nasal Cannula 2.0 Physical Exam General Appearance: WD/WN, no apparent distress Eyes: bilateral eyes normal inspection ENT: hearing grossly normal Neck: no JVD Respiratory/Chest: chest non-tender, lungs clear (no crackles, mild end expiratory wheezing, rhonchi in the upper right lung field), no respiratory distress, no accessory muscle use Cardiovascular: regular rate, rhythm, no edema, no gallop, no JVD, + diastolic murmur (3/6 best heard at RUSB) Abdomen: normal bowel sounds, non tender, soft, no organomegaly, no pulsatile mass Extremities: non-tender, normal inspection, no pedal edema, no calf tenderness Neurologic/Psychiatric: alert, normal mood/affect, oriented x 3 Skin: no rash Laboratory Results Last 24 Hours Test 08/11/17 16:31 08/11/17 17:42 08/11/17 20:45 08/12/17 01:41 Bedside Glucose 188 mg/dl 82 mg/dl Total Creatine Kinase 210 U/L 206 U/L Creatine Kinase MB 6.2 ng/ml 5.1 ng/ml Creatine Kinase MB Ratio 3.0 2.5 Troponin I 0.135 ng/ml 0.168 ng/ml White Blood Count 9.00 K/uL Red Blood Count 3.48 M/uL Hemoglobin 10.9 g/dL Hematocrit 32.1 % Mean Corpuscular Volume 92.2 fL Mean Corpuscular Hemoglobin 31.3 pg Mean Corpuscular Hemoglobin Concent 34.0 g/dl Platelet Count 317 K/uL Mean Platelet Volume 10.1 fL Neutrophils (%) (Auto) 59.2 % Lymphocytes (%) (Auto) 24.2 % Monocytes (%) (Auto) 11.1 % Eosinophils (%) (Auto) 5.1 % Basophils (%) (Auto) 0.3 % Neutrophils # (Auto) 5.32 K/uL Lymphocytes # (Auto) 2.18 K/uL Monocytes # (Auto) 1.00 K/uL Eosinophils # (Auto) 0.46 K/uL Basophils # (Auto) 0.03 K/uL RDW Standard Deviation 50.0 fL RDW Coefficient of Variation 14.9 % Immature Granulocyte % (Auto) 0.1 % Immature Granulocyte # (Auto) 0.01 K/uL Sodium Level 136 mmol/L Potassium Level 4.2 mmol/L Chloride Level 103 mmol/L Carbon Dioxide Level 26 mmol/L Anion Gap 7.0 mmol/L Blood Urea Nitrogen 31 mg/dl Creatinine 1.68 mg/dl Est Creatinine Clear Calc Drug Dose 19.4 ml/min Estimated GFR () 31.8 Estimated GFR (Non- 27.4 BUN/Creatinine Ratio 18.3 Random Glucose 71 mg/dl Calcium Level 7.9 mg/dl Magnesium Level 2.0 mg/dl Pro-B-Type Natriuretic Peptide 5834 pg/ml Test 08/12/17 07:47 Bedside Glucose 89 mg/dl Medications Current Inpatient Medications Medications (Trade) Dose Ordered Sig/David Route Start Time Stop Time Status Last Admin Dose Admin Acetaminophen (Tylenol Tab) 650 mg Q4H PRN PO 08/11/17 11:45 09/10/17 11:44 Al Hydrox/Mg Hydrox/Simethicone (Maalox Max Susp) 15 ml Q4H PRN PO 08/11/17 11:45 09/10/17 11:44 Magnesium Hydroxide (Milk Of Magnesia Susp) 30 ml Q12H PRN PO 08/11/17 11:45 09/10/17 11:44 Zolpidem Tartrate (Ambien Tab) 5 mg HSZ PRN PO 08/11/17 11:45 09/10/17 11:44 Ondansetron HCl (Zofran Inj) 4 mg Q6H PRN IV 08/11/17 11:45 09/10/17 11:44 Polyethylene (Miralax Powder Packet) 17 gm DAILY PRN PO 08/11/17 11:45 09/10/17 11:44 Albuterol/ Ipratropium (Duoneb) 3 ml QIDR INH 08/11/17 16:00 09/10/17 15:59 08/12/17 11:41 3 ML Guaifenesin (Robitussin Sugar Free Syrup) 100 mg Q6HWA PO 08/11/17 18:00 09/10/17 17:59 08/12/17 04:40 100 MG Amlodipine Besylate (Norvasc Tab) 5 mg HS PO 08/11/17 21:00 09/10/17 20:59 08/11/17 20:36 5 MG Aspirin (Ecotrin Tab) 81 mg HS PO 08/11/17 21:00 09/10/17 20:59 08/11/17 20:36 81 MG Atorvastatin Calcium (Lipitor Tab) 20 mg HS PO 08/11/17 21:00 09/10/17 20:59 08/11/17 20:35 20 MG Cyanocobalamin (Vitamin B-12 Tab) 2,000 mcg DAILY PO 08/12/17 09:00 09/11/17 08:59 08/12/17 08:10 2,000 MCG Diphenoxylate HCl/ Atropine (Lomotil Tab) 1 tab QID PO 08/11/17 17:00 09/10/17 16:59 08/12/17 08:03 1 TAB Insulin Glargine (Lantus Solostar Pen) 10 units QPM SQ 08/11/17 21:00 09/10/17 20:59 08/11/17 20:49 10 UNITS Insulin Glargine (Lantus Solostar Pen) 12 units QAM SQ 08/12/17 09:00 09/11/17 08:59 08/12/17 07:57 12 UNITS Levothyroxine Sodium (Synthroid Tab) 75 mcg DAILYBB PO 08/12/17 06:30 09/11/17 06:29 08/12/17 04:40 75 MCG Multivitamins/ Minerals (Multivitamin W/ Minerals Tab) 1 tab DAILY PO 08/12/17 09:00 09/11/17 08:59 08/12/17 08:03 1 TAB Ropinirole HCl (Requip Tab) 1 mg QPM PO 08/11/17 21:00 09/10/17 20:59 08/11/17 20:35 1 MG Miscellaneous Information (Order Awaiting Action) 1 ea QS N/A 08/11/17 16:00 09/10/17 15:59 Cholecalciferol (Vitamin D Tab) 2,000 inter.unit DAILY PO 08/12/17 09:00 09/11/17 08:59 08/12/17 08:02 2,000 INTER.UNIT Insulin Aspart (novoLOG ASPART) SLIDING SCALE G... ACHS SC 08/11/17 16:30 09/10/17 16:29 08/11/17 17:25 6 UNITS Glucose (Glucose 40% Gel) 15-30 GRAMS 15 GRAMS... UD PRN PO 08/11/17 14:15 09/10/17 14:14 Glucose (Glucose Chew Tab) 4-8 Tablets 4 Tabl... UD PRN PO 08/11/17 14:15 09/10/17 14:14 Dextrose (Dextrose 50% 50ML Syringe) 25-50ML OF 50% DW IV FOR... UD PRN IV 08/11/17 14:15 09/10/17 14:14 Glucagon (Glucagon Inj) 1 mg UD PRN SQ 08/11/17 14:15 09/10/17 14:14 Enoxaparin Sodium (Lovenox Inj) 30 mg DAILY@1800 SQ 08/11/17 18:00 09/10/17 17:59 08/11/17 16:56 30 MG Ropinirole HCl (Requip Tab) 0.5 mg DAILY PRN PO 08/11/17 16:15 09/10/17 16:14 08/11/17 16:53 0.5 MG Hydralazine HCl (HydrALAZINE INJ) 10 mg Q6H PRN IV. 08/12/17 10:30 09/11/17 10:29 Azithromycin (Zithromax Tab) 250 mg QAM PO 08/13/17 09:00 08/16/17 08:59 Assessment and Plan Problems CHF (congestive heart failure) Hypertension Insulin dependent diabetes mellitus S/P TAVR (transcatheter aortic valve replacement) Assessment and Plan: Assessment: 86 year old female with shortness of breath and fatigue. She has no signs of fluid overload on exam. BNP is slightly elevated. Chest x-ray shows mild pulmonary edema. She has no fevers or chest pain, low procalcitonin, cough has been mild. Likely viral URI versus viral pneumonia. Plan: 1. Shortness of breath: Not likely from CHF due to clinical appearance. Possibly viral respiratory infection. Treat conservatively. Stop antibiotics due to low suspicion of pneumonia. Return to home Lasix regiment. Ween off oxygen. 2. Chronic CHF: last echo showed EF of 55-60%, continue home therapies. Discontinue fluid restriction. 3. Elevated creatinine: likely from fluid restriction, resume fluids. 4. Aortic Valve replacement: continue Xarelto. Disposition: Ween off oxygen and discharge home with likely viral illness. Discharge planning: home
[2017-08-12] MEDS: ENOXAPARIN 30 MG/0.3 ML SYR SQ SCH (17:52)
[2017-08-12] MEDS: ASPIRIN 81 MG ECTAB PO SCH (20:36)
[2017-08-12] MEDS: ATORVASTATIN 20 MG TAB PO SCH (20:36)
[2017-08-12] MEDS: ROPINIROLE HCL 1 MG TAB PO SCH (20:36)
[2017-08-12] MEDS: AMLODIPINE BESYLATE 5 MG TAB PO SCH (20:36)
[2017-08-13] VITALS (7 sets, daily range): BP systolic 125–173; BP diastolic 61–64; PULSE 62–96; TEMP 36.6–36.9; O2SAT 90–95
[2017-08-13] MEDS: GUAIFENESIN SUGAR FREE 100 MG/5 ML UDC PO SCH ×2 (04:39→12:08)
[2017-08-13] MEDS: LEVOTHYROXINE 75 MCG TAB PO SCH (06:15)
[2017-08-13] MEDS: ALBUT/IPRATROP 3MG/0.5MG NEB 3 ML VIAL INH SCH ×2 (07:14→11:07)
[2017-08-13 07:26] LABS: BUN/CREATININE RATIO 23.4 (10-20); CALCIUM 8.3 mg/dl (8.5-10.1); CREATININE 1.24 mg/dl (0.60-1.20); POTASSIUM 3.8 mmol/L (3.5-5.1)
[2017-08-13] MEDS: INSULIN ASPART 100 UNITS/ML 3 ML PEN SC SCH ×2 (07:51→12:08)
[2017-08-13] MEDS: DIPHENOXYLATE/ATROPINE 2.5/0.025MG TAB PO SCH (07:52)
[2017-08-13] MEDS: CYANOCOBALAMIN 500 MCG TAB (VIT B-12) PO SCH (07:52)
[2017-08-13] MEDS: CHOLECALCIFEROL 1000 INTER.UNIT TAB PO SCH (07:52)
[2017-08-13] MEDS: CEROVITE ADV FORMULA TAB PO SCH (07:52)
[2017-08-13] MEDS: INSULIN GLARGINE SOLOSTAR 100 UNITS/ML 3 ML PEN SQ SCH (07:57)
[2017-08-13] MEDS ORDERED: AZITHROMYCIN 250 MG TAB PO SCH (09:00)
--- NOTE | 2017-08-13 09:53 | DIAGNOSTIC IMAGING REPORT ---
CHEST ONE VIEW PORTABLE CLINICAL HISTORY: shortness of breath COMPARISON STUDY: 08/11/2017 FINDINGS: The cardiac and mediastinal contours remain stable. Surgical clips project over the right lower paratracheal region. A prosthetic aortic valve is visualized. There is persistent but improving interstitial edema. There are small bilateral pleural effusions. There are bibasilar airspace opacities, likely representing compressive atelectasis although a superimposed inflammatory process could appear similar IMPRESSION: 1. Improving interstitial pulmonary edema 2. Small bilateral pleural effusions with associated bibasal airspace opacities, atelectatic versus infectious/inflammatory Electronically signed by: Josh Simon M.D. 08/13/2017 9:52 AM Dictated Date/Time: 08/13/2017 9:50 AM
--- NOTE | 2017-08-13 10:33 | Medical Student: [facility] ---
Med Student Progress Note Date of Service Aug 13, 2017. Subjective Pt evaluation today including: conversation w/ patient, physical exam, chart review, lab review, review of studies, review of inpatient medication list Voiding: no voiding problems 86 year old female with history of diastolic heart failure 18 months post aortic valve replacement presenting with shortness of breath 2 weeks following admission for CHF exacerbation. She is likely having respiratory distress from viral illness. Today she is very pleasant. She had one bout of shortness of breath at 5AM this morning requiring O2 supplementation. She is nowq breathing room air with O2 sat at 93%. She has a productive cough. Creatinine had bumped from 1 to 1.6, but is now down to 1.24 and she has a UO of 88mL over the last 24 hrs. She is on fluid restriction. She is concerned with going home and having another episode of shortness of breath. She lives alone. Review of Systems Constitutional: No fever, No chills Respiratory: + cough, + sputum, + wheezing, + shortness of breath, + dyspnea on exertion, + dyspnea at rest, No hemoptysis Cardiac: + orthopnea, No chest pain, No edema, No palpitations Abdomen: No pain, No nausea, No vomiting, No diarrhea Female : No dysuria, No urinary frequency All Other Systems: Reviewed and Negative Objective Vital Signs Date Time Temp Pulse Resp B/P (MAP) Pulse Ox O2 Delivery O2 Flow Rate FiO2 08/13/17 07:18 62 18 93 Room Air 08/13/17 07:17 36.6 78 16 125/61 (82) 91 0.5 08/13/17 04:40 96 20 160/64 (96) 90 Nasal Cannula 2.0 08/13/17 04:01 36.9 93 20 173/63 (99) 95 Room Air 08/13/17 04:00 Room Air 08/13/17 00:00 Room Air 08/12/17 23:51 36.6 83 20 124/61 (82) 92 Room Air 08/12/17 20:00 90 Room Air 08/12/17 19:38 64 16 92 Room Air 08/12/17 19:37 36.6 103 20 153/56 (88) 90 Room Air 08/12/17 16:00 90 Room Air 08/12/17 15:50 90 16 90 Room Air 12/11/17 15:35 36.6 74 20 119/59 (79) 90 08/12/17 12:00 Room Air 08/12/17 11:41 92 16 92 Nasal Cannula 1.0 08/12/17 11:18 36.6 71 16 112/53 (72) 91 Nasal Cannula 2.0 Physical Exam General Appearance: WD/WN, no apparent distress Eyes: bilateral eyes normal inspection, bilateral eyes EOMI ENT: hearing grossly normal, pharynx normal Respiratory/Chest: chest non-tender, normal breath sounds, no respiratory distress, no accessory muscle use, + rhonchi (right upper lobe), + wheezing ( end expiratory wheezing throughout both lung spence.) Cardiovascular: regular rate, rhythm, no edema, no gallop, no JVD, + diastolic murmur (3/6 RUSB) Abdomen: normal bowel sounds, non tender, soft, no organomegaly, no pulsatile mass Extremities: non-tender, normal inspection, no pedal edema, no calf tenderness Neurologic/Psychiatric: alert, normal mood/affect, oriented x 3 Skin: normal color, warm/dry, no rash Laboratory Results Last 24 Hours Test 08/12/17 11:49 08/12/17 16:22 08/12/17 20:18 08/13/17 05:57 Bedside Glucose 195 mg/dl 89 mg/dl 210 mg/dl Sodium Level 136 mmol/L Potassium Level 3.8 mmol/L Chloride Level 104 mmol/L Carbon Dioxide Level 24 mmol/L Anion Gap 8.0 mmol/L Blood Urea Nitrogen 29 mg/dl Creatinine 1.24 mg/dl Est Creatinine Clear Calc Drug Dose 26.2 ml/min Estimated GFR () 45.9 Estimated GFR (Non- 39.6 BUN/Creatinine Ratio 23.4 Random Glucose 84 mg/dl Calcium Level 8.3 mg/dl Test 08/13/17 07:27 Bedside Glucose 87 mg/dl Medications Current Inpatient Medications Medications (Trade) Dose Ordered Sig/David Route Start Time Stop Time Status Last Admin Dose Admin Acetaminophen (Tylenol Tab) 650 mg Q4H PRN PO 08/11/17 11:45 09/10/17 11:44 Al Hydrox/Mg Hydrox/Simethicone (Maalox Max Susp) 15 ml Q4H PRN PO 08/11/17 11:45 09/10/17 11:44 Magnesium Hydroxide (Milk Of Magnesia Susp) 30 ml Q12H PRN PO 08/11/17 11:45 09/10/17 11:44 Zolpidem Tartrate (Ambien Tab) 5 mg HSZ PRN PO 08/11/17 11:45 09/10/17 11:44 Ondansetron HCl (Zofran Inj) 4 mg Q6H PRN IV 08/11/17 11:45 09/10/17 11:44 Polyethylene (Miralax Powder Packet) 17 gm DAILY PRN PO 08/11/17 11:45 09/10/17 11:44 Albuterol/ Ipratropium (Duoneb) 3 ml QIDR INH 08/11/17 16:00 09/10/17 15:59 08/13/17 07:14 3 ML Guaifenesin (Robitussin Sugar Free Syrup) 100 mg Q6HWA PO 08/11/17 18:00 09/10/17 17:59 08/13/17 04:39 100 MG Amlodipine Besylate (Norvasc Tab) 5 mg HS PO 08/11/17 21:00 09/10/17 20:59 08/12/17 20:36 5 MG Aspirin (Ecotrin Tab) 81 mg HS PO 08/11/17 21:00 09/10/17 20:59 08/12/17 20:36 81 MG Atorvastatin Calcium (Lipitor Tab) 20 mg HS PO 08/11/17 21:00 09/10/17 20:59 08/12/17 20:36 20 MG Cyanocobalamin (Vitamin B-12 Tab) 2,000 mcg DAILY PO 08/12/17 09:00 09/11/17 08:59 08/13/17 07:52 2,000 MCG Diphenoxylate HCl/ Atropine (Lomotil Tab) 1 tab QID PO 08/11/17 17:00 09/10/17 16:59 08/13/17 07:52 1 TAB Insulin Glargine (Lantus Solostar Pen) 10 units QPM SQ 08/11/17 21:00 09/10/17 20:59 08/12/17 20:43 10 UNITS Insulin Glargine (Lantus Solostar Pen) 12 units QAM SQ 08/12/17 09:00 09/11/17 08:59 08/13/17 07:57 12 UNITS Levothyroxine Sodium (Synthroid Tab) 75 mcg DAILYBB PO 08/12/17 06:30 09/11/17 06:29 08/13/17 06:15 75 MCG Multivitamins/ Minerals (Multivitamin W/ Minerals Tab) 1 tab DAILY PO 08/12/17 09:00 09/11/17 08:59 08/13/17 07:52 1 TAB Ropinirole HCl (Requip Tab) 1 mg QPM PO 08/11/17 21:00 09/10/17 20:59 08/12/17 20:36 1 MG Miscellaneous Information (Order Awaiting Action) 1 ea QS N/A 08/11/17 16:00 09/10/17 15:59 Cholecalciferol (Vitamin D Tab) 2,000 inter.unit DAILY PO 08/12/17 09:00 09/11/17 08:59 08/13/17 07:52 2,000 INTER.UNIT Insulin Aspart (novoLOG ASPART) SLIDING SCALE G... ACHS SC 08/11/17 16:30 09/10/17 16:29 08/12/17 20:42 4 UNITS Glucose (Glucose 40% Gel) 15-30 GRAMS 15 GRAMS... UD PRN PO 08/11/17 14:15 09/10/17 14:14 Glucose (Glucose Chew Tab) 4-8 Tablets 4 Tabl... UD PRN PO 08/11/17 14:15 09/10/17 14:14 Dextrose (Dextrose 50% 50ML Syringe) 25-50ML OF 50% DW IV FOR... UD PRN IV 08/11/17 14:15 09/10/17 14:14 Glucagon (Glucagon Inj) 1 mg UD PRN SQ 08/11/17 14:15 09/10/17 14:14 Enoxaparin Sodium (Lovenox Inj) 30 mg DAILY@1800 SQ 08/11/17 18:00 09/10/17 17:59 08/12/17 17:52 30 MG Ropinirole HCl (Requip Tab) 0.5 mg DAILY PRN PO 08/11/17 16:15 09/10/17 16:14 08/12/17 12:20 0.5 MG Hydralazine HCl (HydrALAZINE INJ) 10 mg Q6H PRN IV. 08/12/17 10:30 09/11/17 10:29 Azithromycin (Zithromax Tab) 250 mg QAM PO 08/13/17 09:00 08/16/17 08:59 08/13/17 07:52 250 MG Assessment and Plan Problems CHF (congestive heart failure) Hypoxia Hypertension Insulin dependent diabetes mellitus S/P TAVR (transcatheter aortic valve replacement) Assessment and Plan: Assessment: 86 year old female with shortness of breath and fatigue. She has no signs of fluid overload on exam. BNP is slightly elevated. Chest x-ray shows mild pulmonary edema. She has no fevers or chest pain, low procalcitonin, cough has been mild. Likely viral URI versus viral pneumonia. Plan: 1. Shortness of breath: Not likely from CHF due to clinical appearance. Possibly viral respiratory infection. Treat conservatively. Return to home Lasix regiment. Two step to assess oxygen need as may need PRN home O2. Start PRN albuterol inhaler and education to send home with. 2. Chronic CHF: last echo showed EF of 55-60%, continue home therapies: Norvassc 5mg HS, Hydralazine 10mg instead of nealopril. Discontinue fluid restriction. 3. Elevated creatinine: Improved over last day close to baseline. Likely from fluid restriction, resume fluids. Hold Enalopril. 4. Aortic Valve replacement: 30mg SQ Lovenox . Disposition: Ween off oxygen and discharge home with likely viral illness possibly with home O2 and PRN albuterol rescue inhaler. Discharge planning: home
[2017-08-13] MEDS ORDERED: PRVHFAIN INH (11:00)
[2017-08-13] MEDS ORDERED: AZIT-57 PO (11:00)
[2017-08-13] MEDS ORDERED: ALBUTEROL HFA 8 GM INHALER INH PRN (11:00)
--- NOTE | 2017-08-13 11:16 | Discharge Summary ---
Discharge Summary Date of Service Aug 13, 2017. Discharge Summary Admission Date: Aug 11, 2017 at 11:35 Discharge Date: Aug 13, 2017 Discharge Disposition: Home Principal Diagnosis: PNA Problems/Secondary Diagnoses: Worsening SOB acute on chronic diastolic CHF exacerbation COLTEN on CKD stage III T2DM HTN HLD Hypothyroidism RLS Procedures: CHEST ONE VIEW PORTABLE HISTORY: 86 years-old Female cough, sob acute cough with shortness of breath COMPARISON: Chest radiograph 07/24/2017, chest CT 07/22/2017 TECHNIQUE: Portable AP view of the chest FINDINGS: Cardiac silhouette is within normal limits. Prosthetic aortic valve. Atherosclerosis of the aorta. Surgical clips project over the right mediastinum. No pneumothorax. Trace bilateral pleural effusions. Pulmonary vascular congestion with interstitial coarsening, patchy perihilar, right lateral midlung and bibasilar opacities. Unchanged mild biapical pleural thickening. Bones of the chest appear grossly intact. IMPRESSION: Findings suggest mild pulmonary edema with patchy bibasilar and lateral right midlung opacities suggesting alveolar pulmonary edema or atelectasis with superimposed pneumonia considered less likely. The above report was generated using voice recognition software. It may contain grammatical, syntax or spelling errors. Electronically signed by: Ramos Harrell M.D. 08/11/2017 9:26 AM Dictated Date/Time: 08/11/2017 9:20 AM The status of this report is Signed. Draft = Not yet reviewed or approved by Radiologist. Signed = Reviewed and approved by Radiologist. CHEST ONE VIEW PORTABLE CLINICAL HISTORY: shortness of breath COMPARISON STUDY: 08/11/2017 FINDINGS: The cardiac and mediastinal contours remain stable. Surgical clips project over the right lower paratracheal region. A prosthetic aortic valve is visualized. There is persistent but improving interstitial edema. There are small bilateral pleural effusions. There are bibasilar airspace opacities, likely representing compressive atelectasis although a superimposed inflammatory process could appear similar IMPRESSION: 1. Improving interstitial pulmonary edema 2. Small bilateral pleural effusions with associated bibasal airspace opacities, atelectatic versus infectious/inflammatory Electronically signed by: Josh Simon M.D. 08/13/2017 9:52 AM Dictated Date/Time: 08/13/2017 9:50 AM The status of this report is Signed. Draft = Not yet reviewed or approved by Radiologist. Signed = Reviewed and approved by Radiologist. Medication Reconciliation New Medications: Albuterol (Ventolin Hfa) 60 Puffs/5400 Mcg Aers 2 PUFF INH Q4H PRN for SOB/Wheezing, #1 INHALER Azithromycin (Azithromycin) 250 Mg Tab 250 MG PO QAM for 2 Days, #2 TAB Continued Medications: Amlodipine (Norvasc) 5 Mg Tab 5 MG PO HS, 0 Refills Aspirin (Aspirin Ec) 81 Mg Tab 81 MG PO HS Atorvastatin (Lipitor) 20 Mg Tab 20 MG PO HS, TAB Benazepril (Lotensin) 40 Mg Tab 20 MG PO DAILY, 0 Refills 1/2 TABLET DOSE Bromfenac Sodium (Ophth) (Prolensa) 0.07 % Gladys 1 DROP OPB QAM Cholecalciferol (D 1000) 1,000 Unit Cap 2000 UNITS PO DAILY Cyanocobalamin (Vitamin B-12 1000 Mcg) 1,000 Mcg Tab 2000 MCG PO DAILY for 30 Days, #6 TAB 2 Refills Diphenoxylate/Atropine (Lomotil 2.5-0.025 mg) 1 Ea Tab 1 TAB PO QID for Diarrhea for 5 Days, #20 TAB Furosemide (Lasix) 20 Mg Tab 20 MG PO DAILY, TAB Insulin Glargine (Lantus Solostar) 100 Unit/Ml Inj 12 UNITS SQ QAM, PEN Insulin Glargine (Lantus Solostar) 100 Unit/Ml Inj 10 UNITS SQ QPM, PEN Levothyroxine Sodium (Levothyroxine Sodium) 75 Mcg Tab 75 MCG PO DAILY, TAB Multiple Vitamins W/ Minerals (Icaps) 1 Cap Cap 1 CAP PO DAILY Ocuvite Preservision (Ocuvite Preservision) 1 Tab Tab 1 TAB PO DAILY, TAB Polyethylene Glycol-Propylene (Systane) 1 Gladys Gladys 1 DROPS OP QPM, #30 ML 5 Refills Ropinirole (Requip) 1 Mg Tab 1 MG PO QPM, TAB Referrals At Discharge Follow up Referrals: Family Practice Referral - Within 1 Week with Lottie Winn MD Discharge Exam Review of Systems: Constitutional: No fever, No chills, No sweats, No weakness, No fatigue Eyes: No worsening of vision ENT: No hearing loss Respiratory: + cough, No sputum, No shortness of breath, No hemoptysis Cardiovascular: No chest pain, No edema, No palpitations Abdomen: No pain, No nausea, No vomiting, No diarrhea, No constipation Musculoskeletal: No joint pain, No muscle pain, No swelling, No calf pain Genitourinary - Female: No dysuria, No urinary frequency, No urinary urgency , No urinary incontinence, No urinary retention, No hematuria Neurologic: No weakness, No numbness/tingling Psychiatric: No depression symptoms, No anxiety Endocrine: No fatigue Hematologic / Lymphatic: No abnormal bleeding/bruising Integumentary: No rash, No itch, No new/changing skin lesions Physical Exam: General Appearance: no apparent distress Eyes: normal inspection, PERRL ENT: hearing grossly normal Neck: supple Respiratory/Chest: lungs clear, no respiratory distress, no accessory muscle use, + decreased breath sounds (throughout all lung spence ) Cardiovascular: regular rate, rhythm, + systolic murmur Abdomen / GI: normal bowel sounds, non tender, soft Extremities: no calf tenderness, no pedal edema Neurologic/Psychiatric: alert, normal mood/affect, oriented x 3 Skin: normal color, warm/dry, no rash Hospital Course Admission H&P: HISTORY OF PRESENT ILLNESS: The patient is an 86-year-old white female with history of grade 2 diastolic CHF, moderate pleural effusion, hypertension, insulin-dependent diabetic neuropathy, aortic valve replacement (history of TAVR ) coming into the hospital Emergency Department because of shortness of breath x1.5 days. The information was per ED physician's progress note and per the patient and daughter at the bedside. The patient was in this hospital 2-1/2 weeks ago because of the same problem, which was worsening shortness of breath and was diagnosed as CHF exacerbation and fluid overload. She was responded to fluid so well and she was found to have bilateral moderate effusion. She was told do not need to have tap off the pleural fluid for now. She was discharged and followed up with PCP. She was seen by jewelry coater, initially Lasix was as needed then was changed 20 mg p.o. daily and was advised to have additional dose if weight gain or shortness of breath. The patient reported has worsening shortness of breath since yesterday. It is not persistent, just occasionally comes and goes. She reported possible 1.5 lb weight gain, since last discharge. Sometimes, dyspnea on exertion associated with shortness of breath and productive yellow cough. Denied fever or chills. Denied obvious dyspnea on exertion. Denied orthopnea. Denied required more pillows during sleep. Denied lower extremity swelling. In the Emergency Room, she was found to have bilateral pleural effusion associated with elevated BNP. She was found to have elevated troponin as well. I was called to admit the patient. When I interviewed with the patient, she confirmed me the above information. PHYSICAL EXAMINATION: VITAL SIGNS: Temperature 36.3, pulse 91, respiration rate 20; blood pressure initially was 165/102, currently is 128/58; pulse ox was 93% on room air, currently is on SaO2. GENERAL: The patient is white female, pleasant, awake, alert and orientated, conversational, follows all commands. No acute distress. HEAD: Normocephalic. EYES: Pupils equal, round responds to light. EARS: Ear was normal. NOSE: Normal. NECK: Supple. Thyroid no enlargement. Trachea in the midline. HEART: Regular rhythm. S1, S2. LUNGS: Decreased breathing sounds. There was no wheezing, but bilateral lower lung has fine crackles. ABDOMEN: Soft, nontender. Bowel sound was positive. GENITOURINARY AND RECTAL: Deferred. EXTREMITIES: Bilateral lower extremity, no swelling. Homans sign was negative. Calf was nontender. NEUROLOGICAL EVALUATION: Cranial nerves II-XII was intact. There was no local deficit. MUSCULOSKELETAL: No limited range of motion. Normal muscle tone. Hospital Course: The patient is an 86-year-old white female with history of grade 2 diastolic CHF , moderate pleural effusion, hypertension, insulin-dependent diabetic neuropathy , aortic valve replacement (history of TAVR) coming into the hospital Emergency Department because of worsening SOB x1.5 days. Worsening SOB, ?secondary to acute on chronic diastolic CHF exacerbation vs PNA: - Admitted to [facility] for cardiac monitoring - Trending cardiac enzymes- chronically elevated trop - O2 protocol, wean as tolerated- does NOT wear O2 supplement at home- 2-step prior to d/c, does NOT require O2 supplement - Monitor I&Os and daily weights- base weight around 57 kg - Treated w/ IV Lasix 40 mg x2- bump in Cr, d/c'd- resume home Lasix 20 mg PO daily at discharge - IV Rocephin and Azithromycin- will d/c Rocephin today; continue Azithromycin x5 days, transition to PO tomorrow- last day of treatment 08/15 - Robitussin q6 hrs for cough - DuoNebs QID and PRN for SOB/wheezing- Albuterol inhaler PRN at discharge - BCx NGTD; sputum culture pending - Repeat CXR on 08/13- improving acute findings COLTEN on CKD stage III, secondary to IV Lasix treatment-IMPROVING: - Avoid nephrotoxic agents and renally dose medications as appropriate -- Holding Lasix and Vasotec- resume at discharge - Follow PRP T2DM: - Continue Lantus 12 u QAM and 10 u QPM - BSG ACHS and ISS HTN: - Hold Vasotec as above - Continue Norvasc 5 mg daily - Hydralazine IV PRN HLD: Lipitor 20 mg HS Hypothyroidism- TSH WNL: Continue Synthroid 75 mcg daily RLS: Continue Requip 1 mg HS and 0.5 mg PRN DVT prophylaxis: Lovenox SQ daily Code Status: LEVEL I, FULL Dispo: Discharge to home I agree with PA assessment and plan and have seen and examined pt myself Resting comfortably in bed VSS No signs of CHF exab CXR reviewed Hold off on lasix and ACEI due to worsening renal insuff, can cont on DC Pt states feeling better Wean off O2 2 step unremarkable Cont azithromycin and albuterol inhaler on DC Total Time Spent: Greater than 30 minutes This includes examination of the patient, discharge planning, medication reconciliation, and communication with other providers. Discharge Instructions Please refer to the electronic Patient Visit Report (Discharge Instructions) for additional information. Follow-Up Please follow-up with your PCP within 5-7 days Please follow-up/keep all of your subspecialty appointments Additional Copies To Lottie Winn MD
--- NOTE | 2017-08-13 11:17 | Discharge Instructions ---
Discharge Instructions Date of Service Aug 13, 2017. Admission Reason for Admission: Chf Exac,Pna Discharge Discharge Diagnosis / Problem: CHF exacerbation, pneumonia Discharge Goals Goal(s): Decrease discomfort, Improve function, Increase independence, Improve disease control, Learn about illness, Diagnostic testing, Therapeutic intervention, Prevent Disease Progression Activity Recommendations Activity Limitations: resume your previous activity . Instructions / Follow-Up Instructions / Follow-Up You were admitted to [facility] due to worsening shortness of breath. You were treated with IV Lasix and Azithromycin. Your symptoms improved and you are stable for discharge to home. New medications at discharge: Azithromycin 250 mg once daily until prescription is complete- next dose on 08/14 Albuterol inhaler 2 puffs every 4 hours as needed for shortness of breath or wheezing Resume all other regular home medications as prescribed. FOLLOW-UPS: Please follow-up with your PCP within 5-7 days Please follow-up/keep all of your subspecialty appointments Current Hospital Diet Patient's current hospital diet: Low Sodium Diet (2gm Na), Diabetes Type 2 Diet Discharge Diet Recommended Diet: Low Sodium Diet (2gm Na), Diabetes Type 2 Diet Pending Studies Studies pending at discharge: yes List of pending studies: Sputum culture Laboratory Results Hemoglobin A1c Test 07/23/17 07:00 Range/Units Estimated Average Glucose 151 mg/dl Hemoglobin A1c 6.9 H 4.5-5.6 % Medical Emergencies . Who to Call and When: Medical Emergencies: If at any time you feel your situation is an emergency, please call 911 immediately. . Non-Emergent Contact Non-Emergency issues call your: Primary Care Provider . . "Provider Documentation" section prepared by Katerine Rene. . VTE Core Measure Inpt VTE Proph given/why not?: Enoxaparin (Lovenox)SQ
[2017-08-13] MEDS: ROPINIROLE HCL 0.25 MG TAB PO PRN (12:09)
== END 2017-08-13 14:26 | disposition home or self-care (01) | DRG 291 ==
LOC: C.EDB 08:27 → EDBD 08:27 → C.MED 11:35 → ENRESERV 12:30
PROVIDERS: ADMIT Hospitalist; ATTEND Hospitalist
DX: I50.33 Acute on chronic diastolic (congestive) heart failure (principal); J18.9 Pneumonia, unspecified organism; N17.9 Acute kidney failure, unspecified; I11.0 Hypertensive heart disease with heart failure; E11.9 Type 2 diabetes mellitus without complications; E03.9 Hypothyroidism, unspecified; E78.5 Hyperlipidemia, unspecified; E55.9 Vitamin D deficiency, unspecified; E53.8 Deficiency of other specified B group vitamins; N18.3 Chronic kidney disease, stage 3 (moderate); Z79.4 Long term (current) use of insulin; Z87.891 Personal history of nicotine dependence; Z79.82 Long term (current) use of aspirin; Z95.2 Presence of prosthetic heart valve; Z83.3 Family history of diabetes mellitus; Z82.49 Family history of ischemic heart disease and other diseases of the circulatory system

== ENCOUNTER 2017-08-15 07:08 | Inpatient (IN) | payer BC, OTHER ==
[2017-08-15] VITALS (11 sets, daily range): BP systolic 128–148; BP diastolic 55–66; PULSE 17–93; TEMP 36.3–36.6; O2SAT 94–98; BMI 25.3
[~2017-08-15] VITALS: Ht 157.5 cm; Wt 55.9 kg
[~2017-08-15 07:08] MED LIST changes: +AZIT-57 PO; -DOCU-94 PO; +FURO-85 PO; -HYDR-5688 PO; -HYDR25TA4 PO; -NAPR1TAB9 PO; -PRED10TA PO; +PRVHFAIN INH; -ROPI0.5T15 PO
[2017-08-15] MEDS ORDERED: NITROGLYCERIN OINT 2% 1GM PACKET EXT STA (07:19)
[2017-08-15] MEDS ORDERED: ALBUT/IPRATROP 3MG/0.5MG NEB 3 ML VIAL INH STA (07:19)
[2017-08-15] MEDS ORDERED: CEFTRIAXONE SOD INJ 1 GM ADDVIAL IV STA (07:19)
[2017-08-15] MEDS ORDERED: FUROSEMIDE 40 MG/4 ML VIAL IV STA (07:19)
--- NOTE | 2017-08-15 07:26 | EMERGENCY ROOM VISIT NOTE ---
History Report prepared by Sumeet: Betty Mcadams Under the Supervision of: Dr. Mook Del Valle M.D. First contact with patient: 07:11 Stated Complaint: SHORTNESS OF BREATH History of Present Illness The patient is an 86 year old female who presents to the Emergency Room with complaints of persistent shortness of breath that began yesterday. She states that yesterday she felt fatigued. The patient states that her breathing was okay yesterday after using her inhaler. Per the patient's daughter, the patient only used her inhaler once yesterday and three times the night before. She states that the patient's shortness of breath is worse at night. The patient denies being on oxygen at home. She states that today is her last day of her Zithromax. Per records, the patient was discharged from the hospital on August 13 after being diagnosed with heart failure and worsening shortness of breath. The patient was discharged on Zithromax and Albuterol and the rest of her medications were continued. The patient denies any fever of chest pain Source of History: patient Onset: yesterday Position: other (global) Quality: other (shortness of breath) Timing: other (persistent) Modifying Factors (Worsening): other (at night) Associated Symptoms: No fevers, No chest pain Review of Systems See HPI for pertinent positives & negatives. A total of 10 systems reviewed and were otherwise negative. 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) Family History Diabetes mellitus FH: hypertension Heart disease Social History Smoking Status: Former Smoker Drug Use: none Marital Status: Occupation Status: retired Current/Historical Medications Scheduled Amlodipine (Norvasc), 5 MG PO HS Aspirin (Aspirin Ec), 81 MG PO HS Atorvastatin (Lipitor), 20 MG PO HS Azithromycin (Azithromycin), 250 MG PO QAM Benazepril (Lotensin), 20 MG PO DAILY Bromfenac Sodium (Ophth) (Prolensa), 1 DROP OPB QAM Cholecalciferol (D 1000), 2,000 UNITS PO DAILY Cyanocobalamin (Vitamin B-12 1000 Mcg), 2,000 MCG PO DAILY Diphenoxylate/Atropine (Lomotil 2.5-0.025 mg), 1 TAB PO QID Furosemide (Lasix), 20 MG PO DAILY Insulin Glargine (Lantus Solostar), 12 UNITS SQ QAM Insulin Glargine (Lantus Solostar), 10 UNITS SQ QPM Levothyroxine Sodium (Levothyroxine Sodium), 75 MCG PO DAILY Multiple Vitamins W/ Minerals (Icaps), 1 CAP PO DAILY Ocuvite Preservision (Ocuvite Preservision), 1 TAB PO DAILY Polyethylene Glycol-Propylene (Systane), 1 DROPS OP QPM Ropinirole (Requip), 1 MG PO QPM Scheduled PRN Albuterol (Ventolin Hfa), 2 PUFF INH Q4H PRN for SOB/Wheezing Allergies Coded Allergies: No Known Allergies (Unverified , 08/15/17) Physical Exam Vital Signs Date Time Temp Pulse Resp B/P (MAP) Pulse Ox O2 Delivery O2 Flow Rate FiO2 08/15/17 08:30 82 17 134/54 97 BiPAP 40 08/15/17 08:15 68 16 134/54 98 Room Air 08/15/17 07:44 82 16 156/70 93 BiPAP 40 08/15/17 07:35 70 17 95 BiPAP/CPAP 40 08/15/17 07:35 70 17 95 BiPAP 40 08/15/17 07:35 17 95 40 08/15/17 07:20 84 08/15/17 07:10 85 Room Air 08/15/17 07:10 7.0 08/15/17 07:10 85 Room Air 08/15/17 07:10 93 Oxymask 7.0 08/15/17 07:10 36.4 92 24 159/73 85 Room Air Physical Exam GENERAL: Patient is in no acute distress. HEENT: No acute trauma, normocephalic atraumatic, mucous membranes moist, no nasal congestion, no scleral icterus. NECK: No stridor, no adenopathy, no meningismus, trachea is midline. LUNG: Decreased breath sounds bilaterally, wheezes and crackles bilaterally, breath sounds are equal HEART: 2/6 systolic murmur with a regular rhythm with an occasional extra beat, normal rate. ABDOMEN: Soft, nontender, bowel sounds positive, no hernias, no peritonitis. EXTREMITIES: No cyanosis or edema, full range of motion of all the joints without pain or difficulty, no signs for acute trauma. NEUROLOGIC: Oriented x 3, no acute motor or sensory deficits, no focal weakness. SKIN: No rash, no jaundice, no diaphoresis. Medical Decision & Procedures ER Provider Diagnostic Interpretation: X-ray results as stated below per interpretation by me and the radiologist: CHEST ONE VIEW PORTABLE CLINICAL HISTORY: EVALUATE RESPIRATORY DISTRESS.DYSPNEA COMPARISON STUDY: 08/13/2017 FINDINGS: Improved aeration left base. Persistent parenchymal infiltrate right base. Mid and upper lungs are considered clear. IMPRESSION: Improved aeration left base. Solid progressive infiltrate right base. The above report was generated using voice recognition software. It may contain grammatical, syntax or spelling errors. Electronically signed by: Moose Diego M.D. 08/15/2017 8:29 AM Dictated Date/Time: 08/15/2017 8:27 AM Laboratory Results 08/15/17 07:41 Red Blood Count 3.64, Mean Corpuscular Volume 92.3, Mean Corpuscular Hemoglobin 31.6, Mean Corpuscular Hemoglobin Concent 34.2, Mean Platelet Volume 10.0, Neutrophils (%) (Auto) 69.5, Lymphocytes (%) (Auto) 18.0, Monocytes (%) (Auto) 6.8, Eosinophils (%) (Auto) 4.8, Basophils (%) (Auto) 0.5, Neutrophils # (Auto) 5.65, Lymphocytes # (Auto) 1.46, Monocytes # (Auto) 0.55, Eosinophils # (Auto) 0.39, Basophils # (Auto) 0.04 08/15/17 07:41 Test 08/15/17 07:41 08/15/17 08:45 White Blood Count 8.12 K/uL (4.8-10.8) Red Blood Count 3.64 M/uL (4.2-5.4) Hemoglobin 11.5 g/dL (12.0-16.0) Hematocrit 33.6 % (37-47) Mean Corpuscular Volume 92.3 fL (80-100) Mean Corpuscular Hemoglobin 31.6 pg (25-34) Mean Corpuscular Hemoglobin Concent 34.2 g/dl (32-36) Platelet Count 361 K/uL (130-400) Mean Platelet Volume 10.0 fL (7.4-10.4) Neutrophils (%) (Auto) 69.5 % Lymphocytes (%) (Auto) 18.0 % Monocytes (%) (Auto) 6.8 % Eosinophils (%) (Auto) 4.8 % Basophils (%) (Auto) 0.5 % Neutrophils # (Auto) 5.65 K/uL (1.4-6.5) Lymphocytes # (Auto) 1.46 K/uL (1.2-3.4) Monocytes # (Auto) 0.55 K/uL (0.11-0.59) Eosinophils # (Auto) 0.39 K/uL (0-0.5) Basophils # (Auto) 0.04 K/uL (0-0.2) RDW Standard Deviation 50.6 fL (36.4-46.3) RDW Coefficient of Variation 14.9 % (11.5-14.5) Immature Granulocyte % (Auto) 0.4 % Immature Granulocyte # (Auto) 0.03 K/uL (0.00-0.02) Prothrombin Time 10.9 SECONDS (9.0-12.0) Prothromb Time International Ratio 1.0 (0.9-1.1) Activated Partial Thromboplast Time 27.1 SECONDS (21.0-31.0) Partial Thromboplastin Ratio 1.0 Arterial Blood pH 7.45 (7.35-7.45) Arterial Blood Partial Pressure CO2 34 mmHg (35-46) Arterial Blood Partial Pressure O2 81 mm/Hg (80-95) Arterial Blood HCO3 23 mmol/L (19-24) Arterial Blood Oxygen Saturation 96.3 % (90-95) Arterial Blood Base Excess -0.4 mEq/L (-9-1.8) Arterial Blood Gas Delivery 40% Kris Test POS (POS) Anion Gap 8.0 mmol/L (3-11) Est Creatinine Clear Calc Drug Dose 38.1 ml/min Estimated GFR () 64.1 Estimated GFR (Non- 55.3 BUN/Creatinine Ratio 24.5 (10-20) Calcium Level 8.0 mg/dl (8.5-10.1) Total Bilirubin 0.5 mg/dl (0.2-1) Aspartate Amino Transf (AST/SGOT) 26 U/L (15-37) Alanine Aminotransferase (ALT/SGPT) 32 U/L (12-78) Alkaline Phosphatase 69 U/L (45-117) Troponin I 0.178 ng/ml (0-0.045) Pro-B-Type Natriuretic Peptide 4442 pg/ml (0-1800) Total Protein 6.4 gm/dl (6.4-8.2) Albumin 3.0 gm/dl (3.4-5.0) Globulin 3.4 gm/dl (2.5-4.0) Albumin/Globulin Ratio 0.9 (0.9-2) Thyroid Stimulating Hormone (TSH) 3.570 uIu/ml (0.300-4.500) Free Thyroxine 1.80 ng/dl (0.80-1.60) Laboratory results reviewed by me. Medications Administered Medications (Trade) Dose Ordered Sig/David Route Start Time Stop Time Status Last Admin Dose Admin Albuterol/ Ipratropium (Duoneb) 12 ml NOW STAT INH 08/15/17 07:19 08/15/17 07:22 DC 08/15/17 07:40 12 ML Furosemide (Lasix Inj) 40 mg NOW STAT IV 08/15/17 07:19 08/15/17 07:22 DC 08/15/17 07:33 40 MG Nitroglycerin (Nitroglycerin 2% Oint) 2 inch NOW STAT EXT 08/15/17 07:19 08/15/17 07:22 DC 08/15/17 07:32 2 INCH Ceftriaxone Sodium (Rocephin Inj) 1 gm NOW STAT IV 08/15/17 07:19 08/15/17 07:22 DC 08/15/17 07:47 1 GM ECG Indication: SOB/dyspnea Rate (beats per minute): 84 Rhythm: sinus rhythm Findings: LBBB, PAC, no acute ischemic change ED Course 0713: The patient was evaluated in room B7. A complete history and physical exam was performed. 0719: Ordered Rocephin Inj 1 gm IV, Nitroglycerin 2 inch EXT, Lasix Inj 40 mg IV , DuoNeb 12 ml INH. 0839: I reevaluated the patient and she is resting comfortably. I discussed the test results with the patient and her daughter rand I discussed the treatment plan. They verbalized complete understanding and agreement. The patient will be evaluated for further treatment. 0842: I discussed the patients case with RADHA Pagan. He is going to evaluate the patient for further treatment. Medical Decision The patient is an 86 year old female who presents to the ED with complaints of shortness of breath. Differential diagnoses considered include CHF, pneumonia, bronchitis, bronchospasm, pneumothorax, renal failure, electrolyte imbalance, anemia, cardiac ischemia. There is no leukocytosis or worrisome anemia. No significant electrolyte abnormality, kidney failure or hepatitis. There is no coagulopathy. Chest film shows increasing bilateral lower lobe congestion with some CHF. No pneumothorax. EKG demonstrates a sinus rhythm, there was a left bundle-branch block, no acute ischemia. Cardiac troponin was somewhat elevated, this has been present though in the past. Blood cultures are pending. BNP is elevated consistent with fluid overload. ABG does not demonstrate acidosis, hypoxia or significant CO2 retention. The patient was hypoxic without face mask O2. She received BiPAP with a DuoNeb , this improved her oxygenation. Because of concerns for heart failure, she was given Nitropaste and IV Lasix. She received IV ceftriaxone as antibiotic coverage. The patient clearly needs to stay in the hospital. She presents hypoxic, she feels worse than when she left the hospital a few days ago. I did speak with the patient and case management. The on-call hospitalist was consulted. Medication Reconcilliation Current Medication List: was personally reviewed by me Blood Pressure Screening Patient's blood pressure: Elevated blood pressure Blood pressure disposition: Elevated BP felt to be situational, Did not require urgent referral Consults Time Called: 0835 Consulting Physician: RADHA Pagan Returned Call: [phone] I discussed the patients case with RADHA Pagan. He is going to evaluate the patient for further treatment. Impression Primary Impression: Hypoxia Additional Impressions: Pneumonia CHF (congestive heart failure) Elevated troponin Critical Care I have personally spent greater than 30 minutes of critical care time in the direct management of this patient. This includes bedside care, interpretation of diagnostic studies and testing, discussion with consultants, the patient, and family members, and other required patient management activities. This 30 minutes is in excess of all separately billable procedures. Scribe Attestation The scribe's documentation has been prepared under my direction and personally reviewed by me in its entirety. I confirm that the note above accurately reflects all work, treatment, procedures, and medical decision making performed by me. Departure Information Dispostion Being Evaluated By Hospitalist Referrals Lottie Winn MD (PCP) Problem Qualifiers
[2017-08-15 07:57] LABS: ARTERIAL BLD GAS O2 SATURATION 96.3 % (90-95); ARTERIAL BLOOD GAS BASE EXCESS -0.4 mEq/L (-9-1.8); ARTERIAL BLOOD GAS HCO3 23 mmol/L (19-24); ARTERIAL BLOOD GAS PO2 81 mm/Hg (80-95); ARTERIAL BLOOD GAS pH 7.45 (7.35-7.45)
[2017-08-15 07:58] LABS: ALLEN TEST POS (POS); O2 ADMINISTRATION 40%
[2017-08-15 07:59] LABS: BASO % 0.5 %; BASO ABS # 0.04 K/uL (0-0.2); COMPLETE YES; EOS % 4.8 %; HEMATOCRIT 33.6 % (37-47); IG% 0.4 %; LYMPH ABS # 1.46 K/uL (1.2-3.4); MEAN CELL VOLUME 92.3 fL (80-100); MEAN CORPUSCULAR HEMOGLOBIN 31.6 pg (25-34); MEAN CORPUSCULAR HGB CONC 34.2 g/dl (32-36); MONO % 6.8 %; NEUT % 69.5 %; PLATELET COUNT 361 K/uL (130-400); RED BLOOD COUNT 3.64 M/uL (4.2-5.4); WHITE BLOOD COUNT 8.12 K/uL (4.8-10.8)
[2017-08-15 08:09] LABS: PROTHROMBIN TIME (PATIENT) 10.9 SECONDS (9.0-12.0)
[2017-08-15 08:22] LABS: BUN/CREATININE RATIO 24.5 (10-20); CREATININE 0.94 mg/dl (0.60-1.20); POTASSIUM 4.3 mmol/L (3.5-5.1)
--- NOTE | 2017-08-15 08:30 | DIAGNOSTIC IMAGING REPORT ---
CHEST ONE VIEW PORTABLE CLINICAL HISTORY: EVALUATE RESPIRATORY DISTRESS.DYSPNEA COMPARISON STUDY: 08/13/2017 FINDINGS: Improved aeration left base. Persistent parenchymal infiltrate right base. Mid and upper lungs are considered clear. IMPRESSION: Improved aeration left base. Solid progressive infiltrate right base. The above report was generated using voice recognition software. It may contain grammatical, syntax or spelling errors. Electronically signed by: Moose Diego M.D. 08/15/2017 8:29 AM Dictated Date/Time: 08/15/2017 8:27 AM
[2017-08-15 08:34] LABS: ALB/GLOB RATIO 0.9 (0.9-2); THYROID STIMULATING HORMONE 3.57 uIu/ml (0.300-4.500)
[2017-08-15 09:01] LABS: URINE APPEARANCE CLEAR (CLEAR); URINE BILIRUBIN NEG (NEG); URINE COLOR YELLOW; URINE NITRITE NEG (NEG); URINE PH 5.5 (4.5-7.5); URINE SPECIFIC GRAVITY 1.015 (1.000-1.030); UROBILINOGEN NEG (NEG); ZZUR CULT IF INDIC CLEAN CATCH NO
[2017-08-15 09:05] LABS: MANUAL MICROSCOPIC REQUIRED? NO; REVIEW REQ? NO
[2017-08-15] MEDS ORDERED: MAGNESIUM HYDROXIDE SUSP 30 ML UDC PO PRN (09:30)
[2017-08-15] MEDS ORDERED: MoRPHine SULFATE 2 MG/ML CARP IV PRN (09:30)
[2017-08-15] MEDS ORDERED: ONDANSETRON INJ 2 MG/ML 2 ML VIAL IV PRN (09:30)
[2017-08-15] MEDS ORDERED: ACETAMINOPHEN 325 MG TAB PO PRN (09:30)
[2017-08-15] MEDS ORDERED: ALUMINUM/MAGNESIUM/SIMETH (MAALOX MAX) 30 ML UDC PO PRN (09:30)
[2017-08-15] MEDS ORDERED: POLYETHYLENE (MIRALAX) 17 GM PACK PO PRN (09:30)
[2017-08-15] MEDS ORDERED: NITROGLYCERIN 0.4 MG SL PER TAB CHARGE SL PRN (09:30)
--- NOTE | 2017-08-15 09:54 | History and Physical ---
History & Physical Date & Time of Service: Aug 15, 2017 at 09:40 Chief Complaint: Shortness Of Breath Primary Care Physician: Musa Mejía MD History of Present Illness Source: patient, family (daughter ), clinic records, hospital records Patient is a pleasant 86 y/o female, with PMHx of chronic diastolic CHF, CKD stage III, T2DM, HTN, HLD, hypothyroidism, and RLS, who presented to the ED because of worsening shortness of breath and fatigue x1 day. Patient was most recently admitted to [facility] 08/11-08/13 due to SOB. She was treated for acute on chronic CHF exacerbation/PNA. She was discharged home to complete a 5 day course of Azithromycin- today would be her last day. +productive cough- yellow sputum. +SOB. +fatigue. Patient denies any fever, chills, sweats, lightheadedness, dizziness, vision changes, CP, palpitations, edema, wheezing, abdominal pain, nausea, vomiting, diarrhea, urinary symptoms, melena, numbness/ tingling, weakness, muscle/joint pain, anxiety/depression, active bleeding, or new skin discoloration/changes. Past Medical/Surgical History Medical Problems: chronic diastolic CHF exacerbation CKD stage III T2DM HTN HLD Hypothyroidism RLS Surgical Problems: (1) Aortic valve replaced Status: Resolved (2) S/P TAVR (transcatheter aortic valve replacement) Status: Chronic Family History Diabetes mellitus FH: hypertension Heart disease Social History Smoking Status: Former Smoker Drug Use: none Marital Status: Housing status: lives alone Occupational Status: retired Multi-Drug Resistant Organisms History of MDRO: No Allergies Coded Allergies: No Known Allergies (Unverified , 08/15/17) Home Medications Scheduled Amlodipine (Norvasc), 5 MG PO HS Aspirin (Aspirin Ec), 81 MG PO HS Atorvastatin (Lipitor), 20 MG PO HS Azithromycin (Azithromycin), 250 MG PO QAM Benazepril (Lotensin), 20 MG PO DAILY Bromfenac Sodium (Ophth) (Prolensa), 1 DROP OPB QAM Cholecalciferol (D 1000), 2,000 UNITS PO DAILY Cyanocobalamin (Vitamin B-12 1000 Mcg), 2,000 MCG PO DAILY Diphenoxylate/Atropine (Lomotil 2.5-0.025 mg), 1 TAB PO QID Furosemide (Lasix), 20 MG PO DAILY Insulin Glargine (Lantus Solostar), 12 UNITS SQ QAM Insulin Glargine (Lantus Solostar), 10 UNITS SQ QPM Levothyroxine Sodium (Levothyroxine Sodium), 75 MCG PO DAILY Multiple Vitamins W/ Minerals (Icaps), 1 CAP PO DAILY Ocuvite Preservision (Ocuvite Preservision), 1 TAB PO DAILY Polyethylene Glycol-Propylene (Systane), 1 DROPS OP QPM Ropinirole (Requip), 1 MG PO QPM Scheduled PRN Albuterol (Ventolin Hfa), 2 PUFF INH Q4H PRN for SOB/Wheezing Physical Exam Vital Signs Date Time Temp Pulse Resp B/P (MAP) Pulse Ox O2 Delivery O2 Flow Rate FiO2 08/15/17 09:09 78 16 117/41 98 BiPAP 40 08/15/17 08:30 82 17 134/54 97 BiPAP 40 08/15/17 08:15 68 16 134/54 98 Room Air 08/15/17 08:10 98 BiPAP 7.0 40 08/15/17 07:44 82 16 156/70 93 BiPAP 40 08/15/17 07:35 70 17 95 BiPAP/CPAP 40 08/15/17 07:35 70 17 95 BiPAP 40 08/15/17 07:35 17 95 40 08/15/17 07:20 84 08/15/17 07:10 85 Room Air 08/15/17 07:10 7.0 08/15/17 07:10 85 Room Air 08/15/17 07:10 93 Oxymask 7.0 08/15/17 07:10 36.4 92 24 159/73 85 Room Air General Appearance: no apparent distress Head: normocephalic, atraumatic Eyes: normal inspection, PERRL ENT: + pertinent finding (hard of hearing ) Neck: supple Respiratory/Chest: lungs clear, no respiratory distress, no accessory muscle use, + decreased breath sounds (throughout all lung spence, >at bilateral lung bases ) Cardiovascular: regular rate, rhythm, + systolic murmur Abdomen/GI: normal bowel sounds, non tender, soft Back: normal inspection Extremities/Musculoskelatal: no calf tenderness, + swelling (trace pitting edema bilateral lower extremities ) Neurologic/Psych: alert, normal mood/affect, oriented x 3 Skin: normal color, warm/dry, no rash Diagnostics Laboratory Results Results Past 24 Hours Test 08/15/17 07:41 08/15/17 08:45 Range/Units White Blood Count 8.12 4.8-10.8 K/uL Red Blood Count 3.64 4.2-5.4 M/uL Hemoglobin 11.5 12.0-16.0 g/dL Hematocrit 33.6 37-47 % Mean Corpuscular Volume 92.3 80-100 fL Mean Corpuscular Hemoglobin 31.6 25-34 pg Mean Corpuscular Hemoglobin Concent 34.2 32-36 g/dl Platelet Count 361 130-400 K/uL Mean Platelet Volume 10.0 7.4-10.4 fL Neutrophils (%) (Auto) 69.5 % Lymphocytes (%) (Auto) 18.0 % Monocytes (%) (Auto) 6.8 % Eosinophils (%) (Auto) 4.8 % Basophils (%) (Auto) 0.5 % Neutrophils # (Auto) 5.65 1.4-6.5 K/uL Lymphocytes # (Auto) 1.46 1.2-3.4 K/uL Monocytes # (Auto) 0.55 0.11-0.59 K/uL Eosinophils # (Auto) 0.39 0-0.5 K/uL Basophils # (Auto) 0.04 0-0.2 K/uL RDW Standard Deviation 50.6 36.4-46.3 fL RDW Coefficient of Variation 14.9 11.5-14.5 % Immature Granulocyte % (Auto) 0.4 % Immature Granulocyte # (Auto) 0.03 0.00-0.02 K/uL Prothrombin Time 10.9 9.0-12.0 SECONDS Prothromb Time International Ratio 1.0 0.9-1.1 Activated Partial Thromboplast Time 27.1 21.0-31.0 SECONDS Partial Thromboplastin Ratio 1.0 Arterial Blood pH 7.45 7.35-7.45 Arterial Blood Partial Pressure CO2 34 35-46 mmHg Arterial Blood Partial Pressure O2 81 80-95 mm/Hg Arterial Blood HCO3 23 19-24 mmol/L Arterial Blood Oxygen Saturation 96.3 90-95 % Arterial Blood Base Excess -0.4 -9-1.8 mEq/L Arterial Blood Gas Delivery 40% Kris Test POS POS Sodium Level 135 136-145 mmol/L Potassium Level 4.3 3.5-5.1 mmol/L Chloride Level 105 98-107 mmol/L Carbon Dioxide Level 22 21-32 mmol/L Anion Gap 8.0 3-11 mmol/L Blood Urea Nitrogen 23 7-18 mg/dl Creatinine 0.94 0.60-1.20 mg/dl Est Creatinine Clear Calc Drug Dose 38.1 ml/min Estimated GFR () 64.1 Estimated GFR (Non- 55.3 BUN/Creatinine Ratio 24.5 10-20 Random Glucose 123 70-99 mg/dl Calcium Level 8.0 8.5-10.1 mg/dl Total Bilirubin 0.5 0.2-1 mg/dl Aspartate Amino Transf (AST/SGOT) 26 15-37 U/L Alanine Aminotransferase (ALT/SGPT) 32 12-78 U/L Alkaline Phosphatase 69 45-117 U/L Troponin I 0.178 0-0.045 ng/ml Pro-B-Type Natriuretic Peptide 4442 0-1800 pg/ml Total Protein 6.4 6.4-8.2 gm/dl Albumin 3.0 3.4-5.0 gm/dl Globulin 3.4 2.5-4.0 gm/dl Albumin/Globulin Ratio 0.9 0.9-2 Thyroid Stimulating Hormone (TSH) 3.570 0.300-4.500 uIu/ml Free Thyroxine 1.80 0.80-1.60 ng/dl Urine Color YELLOW Urine Appearance CLEAR CLEAR Urine pH 5.5 4.5-7.5 Urine Specific [place] 1.015 1.000-1.030 Urine Protein NEG NEG Urine Glucose (UA) NEG NEG Urine Ketones NEG NEG Urine Occult Blood NEG NEG Urine Nitrite NEG NEG Urine Bilirubin NEG NEG Urine Urobilinogen NEG NEG Urine Leukocyte Esterase NEG NEG Microbiology Results 08/15/17 Blood Culture, Received Pending 08/15/17 Blood Culture, Received Pending Diagnostic Radiology CHEST ONE VIEW PORTABLE CLINICAL HISTORY: EVALUATE RESPIRATORY DISTRESS.DYSPNEA COMPARISON STUDY: 08/13/2017 FINDINGS: Improved aeration left base. Persistent parenchymal infiltrate right base. Mid and upper lungs are considered clear. IMPRESSION: Improved aeration left base. Solid progressive infiltrate right base. The above report was generated using voice recognition software. It may contain grammatical, syntax or spelling errors. Electronically signed by: Moose Diego M.D. 08/15/2017 8:29 AM Dictated Date/Time: 08/15/2017 8:27 AM The status of this report is Signed. Draft = Not yet reviewed or approved by Radiologist. Signed = Reviewed and approved by Radiologist. EKG ALEX DOTY ID:[id number] 15-AUG-2017 07:16:31 [facility] Poor data quality, interpretation may be adversely affected Sinus rhythm with Premature atrial complexes Possible Left atrial enlargement Left bundle branch block Abnormal ECG When compared with ECG of 11-AUG-2017 21:13, No significant change was found 25mm/s 10mm/mV 150Hz 8.0 SP2 12SL 241 OSMIN: 3 Referred by: ED Unconfirmed Vent. rate 84 BPM NV interval 160 ms QRS duration 128 ms QT/QTc 420/496 ms P-R-T axes 83 1930 (86 yr) Female Room: Loc:15 Lime Mixer:MAXX Barrett ind: Impression Assessment and Plan Patient is a pleasant 86 y/o female, with PMHx of chronic diastolic CHF, CKD stage III, T2DM, HTN, HLD, hypothyroidism, and RLS, who presented to the ED because of worsening shortness of breath and fatigue x1 day. Acute respiratory failure w/ hypoxia secondary to PNA: - Admit to tele for cardiac monitoring - Trend cardiac enzymes- chronically elevated around -0.15-0.2 - EKG w/out acute ischemic changes; follow EKG QAM and PRN for chest pain - O2 protocol, wean as tolerated- does NOT have O2 supplement at home - IV Levaquin - DuoNeb QID and PRN for SOB/wheezing, flutter valve, incentive spirometer - BCx, MRSA swab, and sputum cultures pending Chronic diastolic CHF: - Treated w/ IV Lasix 40 mg x1 in ED - Continue Lasix 20 mg daily - Monitor I&Os and daily weights CKD stage III- STABLE T2DM: - Continue Lantus 12 u QAM and 10 u QPM - BSG ACHS and ISS HTN: Continue Norvasc 5 mg daily, Lotensin 20 mg daily HLD: Lipitor 20 mg HS Hypothyroidism- TSH WNL: Continue Synthroid 75 mcg daily RLS: Continue Requip 1 mg HS DVT prophylaxis: Heparin SQ BID Code Status: LEVEL I, FULL Dispo: Discharge to home- PT/OT and CM consulted I agree with PA assessment and plan and have seen and examined pt myself Resting comfortably in bed Was on CPAP VSS Labs reviewed Reviewed CXR, noted PNA Readmission Start on IV levaquin IV lasix for CHF exacerbation Cont to monitor Level of Care Telemetry Advanced Directives Existing Living Will: Yes Existing Power of Head Of Training And Development: Yes Resuscitation Status FULL RESUSCITATION VTE Prophylaxis VTE Risk Assessment Done? Y/N: Yes Risk Level: Moderate Given or contraindicated: Unfractionated heparin SQ, T.E.D. Stockings, SCD's
[2017-08-15] MEDS: ALBUT/IPRATROP 3MG/0.5MG NEB 3 ML VIAL INH SCH ×3 (11:00→19:57)
[2017-08-15] MEDS ORDERED: LEVOFLOXACIN CONSULT ACTIVE PRN (11:45)
[2017-08-15] MEDS ORDERED: LEVOFLOXACIN / D5W 750 MG in PREMIXED IN D5W 150 ML IV ONE (12:00)
[2017-08-15] MEDS: DIPHENOXYLATE/ATROPINE 2.5/0.025MG TAB PO SCH ×3 (12:45→20:36)
--- NOTE | 2017-08-15 13:21 | Medical Student: [facility] ---
Med Student History & Physical Date & Time of Service: Aug 15, 2017 at 11:53 Chief Complaint: Pneumonia, Acute Respiratory Failure With Hypoxia Primary Care Physician: Musa Mejía MD History of Present Illness Source: patient, family, hospital records 86 year old female with a history of CHF presents with shortness of breath two days after discharge from hospital stay here for the same complaint. Last visit she was thought to have a viral illness causing her problems. She was discharged with an albuterol rescue inhaler. She had felt off since going home, but worsened abruptly last night. The albuterol inhaler did not alleviate the shortness of breath. She continues to have productive cough and wheezing. She denies chest pain, fevers, chills. Past Medical/Surgical History Medical Problems: (1) ACS (acute coronary syndrome) Status: Acute (2) CHF (congestive heart failure) Status: Acute (3) CHF (congestive heart failure) Status: Acute (4) CHF (congestive heart failure) Status: Acute (5) Elevated troponin Status: Acute (6) Elevated troponin Status: Acute (7) Hypoxia Status: Acute (8) Hypoxia Status: Acute (9) Pain in both wrists Status: Acute (10) PNA (pneumonia) Status: Acute (11) Pneumonia Status: Acute Surgical Problems: (1) Aortic valve replaced Status: Resolved Social History Smoking Status: Former Smoker (socially) Drug Use: none Marital Status: Housing status: lives alone Occupational Status: retired Allergies Coded Allergies: No Known Allergies (Unverified , 08/15/17) Medications Albuterol (Ventolin Hfa), 2 PUFF INH Q4H PRN for SOB/Wheezing Amlodipine (Norvasc), 5 MG PO HS Aspirin (Aspirin Ec), 81 MG PO HS Atorvastatin (Lipitor), 20 MG PO HS Azithromycin (Azithromycin), 250 MG PO QAM Benazepril (Lotensin), 20 MG PO DAILY Bromfenac Sodium (Ophth) (Prolensa), 1 DROP OPB QAM Cholecalciferol (D 1000), 2,000 UNITS PO DAILY Cyanocobalamin (Vitamin B-12 1000 Mcg), 2,000 MCG PO DAILY Diphenoxylate/Atropine (Lomotil 2.5-0.025 mg), 1 TAB PO QID Furosemide (Lasix), 20 MG PO DAILY Insulin Glargine (Lantus Solostar), 12 UNITS SQ QAM Insulin Glargine (Lantus Solostar), 10 UNITS SQ QPM Levothyroxine Sodium (Levothyroxine Sodium), 75 MCG PO DAILY Multiple Vitamins W/ Minerals (Icaps), 1 CAP PO DAILY Ocuvite Preservision (Ocuvite Preservision), 1 TAB PO DAILY Polyethylene Glycol-Propylene (Systane), 1 DROPS OP QPM Ropinirole (Requip), 1 MG PO QPM Review of Systems Constitutional: + weakness, + fatigue, No fever, No chills, No sweats Respiratory: + cough, + sputum, + wheezing, + shortness of breath, + dyspnea on exertion, + dyspnea at rest Cardiovascular: No chest pain, No orthopnea, No edema, No palpitations Abdomen: No pain, No nausea, No vomiting, No diarrhea Genitourinary - Female: No dysuria, No urinary frequency Integumentary: No rash, No itch Physical Exam Vital Signs (24 Hours) Date Time Temp Pulse Resp B/P (MAP) Pulse Ox O2 Delivery O2 Flow Rate FiO2 08/15/17 11:03 93 20 96 Nasal Cannula 5.0 08/15/17 10:00 77 14 126/56 100 BiPAP 40 08/15/17 09:30 82 18 144/50 99 BiPAP 40 08/15/17 09:09 78 16 117/41 98 BiPAP 40 08/15/17 08:30 82 17 134/54 97 BiPAP 40 08/15/17 08:15 68 16 134/54 98 Room Air 08/15/17 08:10 98 BiPAP 7.0 40 08/15/17 07:44 82 16 156/70 93 BiPAP 40 08/15/17 07:35 70 17 95 BiPAP/CPAP 40 08/15/17 07:35 70 17 95 BiPAP 40 08/15/17 07:35 17 95 40 08/15/17 07:20 84 08/15/17 07:10 85 Room Air 08/15/17 07:10 7.0 08/15/17 07:10 85 Room Air 08/15/17 07:10 93 Oxymask 7.0 08/15/17 07:10 36.4 92 24 159/73 85 Room Air General Appearance: WD/WN, no apparent distress Head: normocephalic, atraumatic Eyes: normal inspection, EOMI ENT: hearing grossly normal (with hearing aids), pharynx normal Neck: supple, no JVD Respiratory/Chest: chest non-tender, no respiratory distress, no accessory muscle use, + wheezing (end expiratory wheezing bilaterally throughout) Cardiovascular: regular rate, rhythm, no edema, no gallop, no JVD, normal peripheral pulses, + diastolic murmur (3/6 best heard at RUSB) Abdomen/GI: normal bowel sounds, non tender, soft, no organomegaly, no pulsatile mass Extremities/Musculoskelatal: normal inspection, no calf tenderness, no pedal edema, non-tender Neurologic/Psych: alert, normal mood/affect, oriented x 3 Skin: normal color, warm/dry, no rash Diagnostics Laboratory Results Results Past 24 Hours Test 08/15/17 07:41 08/15/17 08:45 08/15/17 11:30 Range/Units White Blood Count 8.12 4.8-10.8 K/uL Red Blood Count 3.64 4.2-5.4 M/uL Hemoglobin 11.5 12.0-16.0 g/dL Hematocrit 33.6 37-47 % Mean Corpuscular Volume 92.3 80-100 fL Mean Corpuscular Hemoglobin 31.6 25-34 pg Mean Corpuscular Hemoglobin Concent 34.2 32-36 g/dl Platelet Count 361 130-400 K/uL Mean Platelet Volume 10.0 7.4-10.4 fL Neutrophils (%) (Auto) 69.5 % Lymphocytes (%) (Auto) 18.0 % Monocytes (%) (Auto) 6.8 % Eosinophils (%) (Auto) 4.8 % Basophils (%) (Auto) 0.5 % Neutrophils # (Auto) 5.65 1.4-6.5 K/uL Lymphocytes # (Auto) 1.46 1.2-3.4 K/uL Monocytes # (Auto) 0.55 0.11-0.59 K/uL Eosinophils # (Auto) 0.39 0-0.5 K/uL Basophils # (Auto) 0.04 0-0.2 K/uL RDW Standard Deviation 50.6 36.4-46.3 fL RDW Coefficient of Variation 14.9 11.5-14.5 % Immature Granulocyte % (Auto) 0.4 % Immature Granulocyte # (Auto) 0.03 0.00-0.02 K/uL Prothrombin Time 10.9 9.0-12.0 SECONDS Prothromb Time International Ratio 1.0 0.9-1.1 Activated Partial Thromboplast Time 27.1 21.0-31.0 SECONDS Partial Thromboplastin Ratio 1.0 Arterial Blood pH 7.45 7.35-7.45 Arterial Blood Partial Pressure CO2 34 35-46 mmHg Arterial Blood Partial Pressure O2 81 80-95 mm/Hg Arterial Blood HCO3 23 19-24 mmol/L Arterial Blood Oxygen Saturation 96.3 90-95 % Arterial Blood Base Excess -0.4 -9-1.8 mEq/L Arterial Blood Gas Delivery 40% Kris Test POS POS Sodium Level 135 136-145 mmol/L Potassium Level 4.3 3.5-5.1 mmol/L Chloride Level 105 98-107 mmol/L Carbon Dioxide Level 22 21-32 mmol/L Anion Gap 8.0 3-11 mmol/L Blood Urea Nitrogen 23 7-18 mg/dl Creatinine 0.94 0.60-1.20 mg/dl Est Creatinine Clear Calc Drug Dose 38.1 ml/min Estimated GFR () 64.1 Estimated GFR (Non- 55.3 BUN/Creatinine Ratio 24.5 10-20 Random Glucose 123 70-99 mg/dl Calcium Level 8.0 8.5-10.1 mg/dl Total Bilirubin 0.5 0.2-1 mg/dl Aspartate Amino Transf (AST/SGOT) 26 15-37 U/L Alanine Aminotransferase (ALT/SGPT) 32 12-78 U/L Alkaline Phosphatase 69 45-117 U/L Troponin I 0.178 0-0.045 ng/ml Pro-B-Type Natriuretic Peptide 4442 0-1800 pg/ml Total Protein 6.4 6.4-8.2 gm/dl Albumin 3.0 3.4-5.0 gm/dl Globulin 3.4 2.5-4.0 gm/dl Albumin/Globulin Ratio 0.9 0.9-2 Procalcitonin < 0.05 0-0.5 ng/ml Thyroid Stimulating Hormone (TSH) 3.570 0.300-4.500 uIu/ml Free Thyroxine 1.80 0.80-1.60 ng/dl Urine Color YELLOW Urine Appearance CLEAR CLEAR Urine pH 5.5 4.5-7.5 Urine Specific [place] 1.015 1.000-1.030 Urine Protein NEG NEG Urine Glucose (UA) NEG NEG Urine Ketones NEG NEG Urine Occult Blood NEG NEG Urine Nitrite NEG NEG Urine Bilirubin NEG NEG Urine Urobilinogen NEG NEG Urine Leukocyte Esterase NEG NEG Bedside Glucose 136 70-90 mg/dl Microbiology Results 08/15/17 Blood Culture, Received Pending 08/15/17 Blood Culture, Received Pending Diagnostic Radiology CHEST ONE VIEW PORTABLE CLINICAL HISTORY: EVALUATE RESPIRATORY DISTRESS.DYSPNEA COMPARISON STUDY: 08/13/2017 FINDINGS: Improved aeration left base. Persistent parenchymal infiltrate right base. Mid and upper lungs are considered clear. IMPRESSION: Improved aeration left base. Solid progressive infiltrate right base. No change from prior EKG Impression Assessment and Plan Assessment: 86 year old presenting with shortness of breath and cough that has been persistent and worsening for several weeks. Likely pneumonia as seen in lower right lobe on xray. Plan: 1. Shortness of breath: Likely due to pneumonia. Started on IV Levaquin 750mg daily. On 5L O2 NC with sat of 96%. Duonebs PRN. 2. CHF: no signs of fluid overload on exam. BNP is elevated to 4446. Given 40mg IV Lasix in ED. Resume home meds: 20 mg Lasix daily. Amlodipine 5mg daily. 81 mg ASA daily. 3. CKD: Check BMP q24. Creatinine 0.94 today which is improved from discharge. 4. T2DM: Well controlled BG, q4hrs. Lantus 12units SQ qAM and 10 units SQ qPM, SSI NovoLog. 5. HTN: Enalapril 20mg daily. Well controlled. 6. HLD: 20mg Atorvastatin PO daily. 7. Hypothyroidism: 75mcg daily. 8. DVT prophylaxis: 5000 units of heparin SQ q12h.\ 9. Elevated troponin: chronic. EKG shows no changes. Has decreased since discharge. Level of Care Telemetry Advanced Directives Existing Living Will: Yes Existing Power of Broom Handle Dipper: Yes DVT Prophylaxis enoxaparin (Lovenox) SQ, SCDs Social Service Consult None Apply Note Total Time: Critical Care 30 - 74 minutes
[2017-08-15] MEDS: ENALAPRIL MALEATE 10 MG TAB PO SCH (13:27)
[2017-08-15] MEDS: CYANOCOBALAMIN 500 MCG TAB (VIT B-12) PO SCH (13:27)
[2017-08-15] MEDS: CEROVITE ADV FORMULA TAB PO SCH (13:27)
[2017-08-15] MEDS: INSULIN ASPART 100 UNITS/ML 3 ML PEN SC SCH ×3 (13:31→20:32)
[2017-08-15] MEDS: ROPINIROLE HCL 1 MG TAB PO PRN (14:24)
[2017-08-15] MEDS: SYSTANE~ORDER AWAITING ACTION SCH ×2 (16:00→23:52)
[2017-08-15] MEDS: HEPARIN SOD 5000 UNIT/0.5 ML CARP SQ SCH (20:32)
[2017-08-15] MEDS: INSULIN GLARGINE SOLOSTAR 100 UNITS/ML 3 ML PEN SQ SCH (20:32)
[2017-08-15] MEDS: ROPINIROLE HCL 1 MG TAB PO SCH (20:34)
[2017-08-15] MEDS: ATORVASTATIN 20 MG TAB PO SCH (20:35)
[2017-08-15] MEDS: ASPIRIN 81 MG ECTAB PO SCH (20:35)
[2017-08-15] MEDS: AMLODIPINE BESYLATE 5 MG TAB PO SCH (20:36)
[2017-08-16] VITALS (13 sets, daily range): BP systolic 116–175; BP diastolic 53–73; PULSE 76–98; TEMP 36.3–36.8; O2SAT 90–98
[2017-08-16] MEDS: GUAIFENESIN SUGAR FREE 100 MG/5 ML UDC PO PRN (01:58)
[2017-08-16] MEDS ORDERED: ALBUT/IPRATROP 3MG/0.5MG NEB 3 ML VIAL INH STA (04:21)
[2017-08-16] MEDS ORDERED: NURSING VERBAL MED ORDER ONE (04:30)
[2017-08-16] MEDS: LEVOTHYROXINE 75 MCG TAB PO SCH (05:51)
[2017-08-16 06:21] LABS: BUN/CREATININE RATIO 19.7 (10-20); CALCIUM 8.5 mg/dl (8.5-10.1); CREATININE 1.17 mg/dl (0.60-1.20); POTASSIUM 4.2 mmol/L (3.5-5.1)
[2017-08-16 06:31] LABS: HEMATOCRIT 33.2 % (37-47); MEAN CELL VOLUME 92.2 fL (80-100); MEAN CORPUSCULAR HEMOGLOBIN 30.8 pg (25-34); MEAN CORPUSCULAR HGB CONC 33.4 g/dl (32-36); MEAN PLATELET VOLUME 10.5 fL (7.4-10.4); PLATELET COUNT 365 K/uL (130-400)
--- NOTE | 2017-08-16 06:42 | DIAGNOSTIC IMAGING REPORT ---
CHEST ONE VIEW PORTABLE CLINICAL HISTORY: sob dyspnea COMPARISON STUDY: 08/15/2017 FINDINGS: Mild stable cardiomegaly. Subtle improvement in aeration right base. Slightly progressive infiltrative change left base. Underlying components of congestive failure appears stable. IMPRESSION: 1. Stable findings of congestive failure. 2. Slightly variable minimal basilar parenchymal infiltrative change. The above report was generated using voice recognition software. It may contain grammatical, syntax or spelling errors. Electronically signed by: Moose Diego M.D. 08/16/2017 6:40 AM Dictated Date/Time: 08/16/2017 6:39 AM
[2017-08-16] MEDS: ALBUT/IPRATROP 3MG/0.5MG NEB 3 ML VIAL INH SCH ×4 (07:23→19:47)
[2017-08-16] MEDS: SYSTANE~ORDER AWAITING ACTION SCH ×2 (07:27→16:00)
[2017-08-16] MEDS: ENALAPRIL MALEATE 10 MG TAB PO SCH (07:54)
[2017-08-16] MEDS: CEROVITE ADV FORMULA TAB PO SCH (07:54)
[2017-08-16] MEDS: FUROSEMIDE 20 MG TAB PO SCH (07:55)
[2017-08-16] MEDS: ROPINIROLE HCL 1 MG TAB PO PRN (07:55)
[2017-08-16] MEDS: DIPHENOXYLATE/ATROPINE 2.5/0.025MG TAB PO SCH ×4 (07:56→20:31)
[2017-08-16] MEDS: CYANOCOBALAMIN 500 MCG TAB (VIT B-12) PO SCH (07:56)
[2017-08-16] MEDS: INSULIN ASPART 100 UNITS/ML 3 ML PEN SC SCH ×4 (07:58→20:39)
[2017-08-16] MEDS: INSULIN GLARGINE SOLOSTAR 100 UNITS/ML 3 ML PEN SQ SCH ×2 (08:00→20:40)
[2017-08-16] MEDS: HEPARIN SOD 5000 UNIT/0.5 ML CARP SQ SCH ×2 (08:01→20:40)
--- NOTE | 2017-08-16 09:07 | Medical Student: [facility] ---
Med Student Progress Note Date of Service Aug 16, 2017. Subjective Pt evaluation today including: conversation w/ patient, physical exam, chart review, lab review, review of studies, review of inpatient medication list Voiding: no voiding problems, no incontinence 86 year old female with a history of CHF presenting on 08/15 with shortness of breath two days after discharge from hospital stay here for the same complaint. Last visit she was thought to have a viral illness causing her problems. She is thought to have a lower right lobe HCAP pneumonia being treated with IV Levaquin. Overnight she became acutely short of breath without relieve and continues to feel poorly this morning. Repeat CXR showed no acute changes. EKG showed no changes from prior day. Troponin has continued to trend downward. She received to nebulizer treatments overnight without improvement. She is 93% on 3L NC O2. Creatinine has risen slightly from 0.94 to 1.17, she had COLTEN while hospitalized earlier this week. She notes that she was taking daily Mobic before hospital stay for wrist arthritis and has not received it here. No chest pain. Persistent productive cough, no wheezing. MRSA nasal culture came back negative. No signs of fluid overload. Review of Systems Constitutional: + weakness, + fatigue, No fever, No chills, No sweats Respiratory: + cough, + sputum, + shortness of breath, + dyspnea at rest, No wheezing Cardiac: + orthopnea, No chest pain, No edema, No palpitations Abdomen: No pain, No nausea, No vomiting, No diarrhea Female : No dysuria, No urinary frequency All Other Systems: Reviewed and Negative Objective Vital Signs Date Time Temp Pulse Resp B/P (MAP) Pulse Ox O2 Delivery O2 Flow Rate FiO2 08/16/17 07:37 36.3 97 22 171/73 (105) 93 Nasal Cannula 3.0 08/16/17 07:25 88 20 93 Nasal Cannula 3.0 08/16/17 04:30 84 18 92 Nasal Cannula 2.0 08/16/17 04:19 36.6 86 18 147/64 (91) 90 Nasal Cannula 2.0 08/16/17 04:19 95 Nasal Cannula 2.0 08/16/17 00:00 95 Nasal Cannula 2.0 08/15/17 23:42 36.6 88 18 135/55 (81) 94 Nasal Cannula 2.0 08/15/17 20:00 95 Nasal Cannula 2.0 08/15/17 19:57 86 16 95 Nasal Cannula 2.0 08/15/17 19:50 36.6 80 18 138/65 (89) 96 Nasal Cannula 2.0 08/15/17 16:14 95 Nasal Cannula 2.0 08/15/17 15:32 79 16 95 Nasal Cannula 2.0 08/15/17 14:43 36.3 85 20 128/66 (86) 95 Nasal Cannula 5.0 08/15/17 12:22 36.5 93 20 148/61 (90) 96 Nasal Cannula 5.0 08/15/17 11:03 93 20 96 Nasal Cannula 5.0 08/15/17 10:00 77 14 126/56 100 BiPAP 40 08/15/17 09:30 82 18 144/50 99 BiPAP 40 08/15/17 09:09 78 16 117/41 98 BiPAP 40 Physical Exam General Appearance: WD/WN, + moderate distress Eyes: bilateral eyes normal inspection, bilateral eyes EOMI ENT: pharynx normal, + pertinent finding (hard of hearing) Neck: supple, no JVD Respiratory/Chest: chest non-tender, no accessory muscle use, + respiratory distress (mild), + decreased breath sounds Cardiovascular: no edema, no gallop, no JVD, + tachycardia, + diastolic murmur (3/6 RUSB) Abdomen: normal bowel sounds, non tender, soft, no organomegaly, no pulsatile mass Extremities: non-tender, normal inspection, no pedal edema, no calf tenderness Neurologic/Psychiatric: alert, normal mood/affect, oriented x 3 Skin: normal color, warm/dry, no rash Laboratory Results Last 24 Hours Test 08/15/17 11:30 08/15/17 15:30 08/15/17 15:51 08/15/17 16:04 Bedside Glucose 136 mg/dl 122 mg/dl Creatine Kinase MB Ratio Creatine Kinase MB 7.9 ng/ml Troponin I 0.151 ng/ml Test 08/15/17 20:04 08/15/17 23:26 08/16/17 05:28 08/16/17 07:15 Bedside Glucose 151 mg/dl 102 mg/dl Creatine Kinase MB 7.2 ng/ml Creatine Kinase MB Ratio Troponin I 0.153 ng/ml White Blood Count 7.90 K/uL Red Blood Count 3.60 M/uL Hemoglobin 11.1 g/dL Hematocrit 33.2 % Mean Corpuscular Volume 92.2 fL Mean Corpuscular Hemoglobin 30.8 pg Mean Corpuscular Hemoglobin Concent 33.4 g/dl RDW Standard Deviation 51.4 fL RDW Coefficient of Variation 15.4 % Platelet Count 365 K/uL Mean Platelet Volume 10.5 fL Sodium Level 134 mmol/L Potassium Level 4.2 mmol/L Chloride Level 102 mmol/L Carbon Dioxide Level 23 mmol/L Anion Gap 9.0 mmol/L Blood Urea Nitrogen 23 mg/dl Creatinine 1.17 mg/dl Est Creatinine Clear Calc Drug Dose 27.8 ml/min Estimated GFR () 49.2 Estimated GFR (Non- 42.5 BUN/Creatinine Ratio 19.7 Random Glucose 116 mg/dl Calcium Level 8.5 mg/dl Medications Current Inpatient Medications Medications (Trade) Dose Ordered Sig/David Route Start Time Stop Time Status Last Admin Dose Admin Heparin Sodium (Porcine) (Heparin Sq 5000 Unit/0.5ml) 5,000 unit Q12 SQ 08/15/17 21:00 09/14/17 20:59 08/16/17 08:01 5,000 UNIT Acetaminophen (Tylenol Tab) 650 mg Q4H PRN PO 08/15/17 09:30 09/14/17 09:29 Al Hydrox/Mg Hydrox/Simethicone (Maalox Max Susp) 15 ml Q4H PRN PO 08/15/17 09:30 09/14/17 09:29 Magnesium Hydroxide (Milk Of Magnesia Susp) 30 ml Q12H PRN PO 08/15/17 09:30 09/14/17 09:29 Ondansetron HCl (Zofran Inj) 4 mg Q6H PRN IV 08/15/17 09:30 09/14/17 09:29 Nitroglycerin (Nitrostat Tab) 0.4 mg UD PRN SL 08/15/17 09:30 09/14/17 09:29 Morphine Sulfate (MoRPHine SULFATE INJ) 2 mg Q30M PRN IV 08/15/17 09:30 08/29/17 09:29 Polyethylene (Miralax Powder Packet) 17 gm DAILY PRN PO 08/15/17 09:30 09/14/17 09:29 Albuterol/ Ipratropium (Duoneb) 3 ml QIDR INH 08/15/17 12:00 09/14/17 11:59 08/16/17 07:23 3 ML Amlodipine Besylate (Norvasc Tab) 5 mg HS PO 08/15/17 21:00 09/14/17 20:59 08/15/17 20:36 5 MG Aspirin (Ecotrin Tab) 81 mg HS PO 08/15/17 21:00 09/14/17 20:59 08/15/17 20:35 81 MG Atorvastatin Calcium (Lipitor Tab) 20 mg HS PO 08/15/17 21:00 09/14/17 20:59 08/15/17 20:35 20 MG Cyanocobalamin (Vitamin B-12 Tab) 2,000 mcg DAILY PO 08/16/17 09:00 09/15/17 08:59 08/16/17 07:56 2,000 MCG Diphenoxylate HCl/ Atropine (Lomotil Tab) 1 tab QID PO 08/15/17 13:00 09/14/17 12:59 08/16/17 07:56 1 TAB Furosemide (Lasix Tab) 20 mg DAILY PO 08/16/17 09:00 09/15/17 08:59 08/16/17 07:55 20 MG Insulin Glargine (Lantus Solostar Pen) 10 units QPM SQ 08/15/17 21:00 09/14/17 20:59 08/15/17 20:32 10 UNITS Insulin Glargine (Lantus Solostar Pen) 12 units QAM SQ 08/16/17 09:00 09/15/17 08:59 08/16/17 08:00 12 UNITS Levothyroxine Sodium (Synthroid Tab) 75 mcg DAILYBB PO 08/16/17 06:30 09/15/17 06:29 08/16/17 05:51 75 MCG Multivitamins/ Minerals (Multivitamin W/ Minerals Tab) 1 tab DAILY PO 08/16/17 09:00 09/15/17 08:59 08/16/17 07:54 1 TAB Ropinirole HCl (Requip Tab) 1 mg QPM PO 08/15/17 21:00 09/14/17 20:59 08/15/17 20:34 1 MG Enalapril Maleate (Vasotec Tab) 20 mg DAILY PO 08/16/17 09:00 1/14/18 08:59 08/16/17 07:54 20 MG Miscellaneous Information (Order Awaiting Action) 1 ea QS N/A 08/15/17 16:00 09/14/17 15:59 Miscellaneous Information (Order Awaiting Action) 1 ea QS N/A 08/15/17 16:00 09/14/17 15:59 Insulin Aspart (novoLOG ASPART) SLIDING SCALE G... ACHS SC 08/15/17 11:00 09/14/17 10:59 08/15/17 17:46 2 UNITS Levofloxacin 750 mg/Prmx 150 ml @ 100 mls/hr Q48H IV 08/17/17 09:00 08/24/17 08:59 Levofloxacin (Consult) 1 ea UD PRN N/A 08/15/17 11:45 09/14/17 11:44 Ropinirole HCl (Requip Tab) 0.5 mg DAILY PRN PO 08/15/17 13:30 09/14/17 13:29 08/16/17 07:55 0.5 MG Guaifenesin (Robitussin Sugar Free Syrup) 100 mg Q6H PRN PO 08/16/17 00:30 09/15/17 00:29 08/16/17 01:58 100 MG Assessment and Plan Problems CHF (congestive heart failure) Elevated troponin Hypoxia Pain in both wrists Pneumonia Hypertension Insulin dependent diabetes mellitus S/P TAVR (transcatheter aortic valve replacement) Assessment and Plan: Assessment: 86 year old presenting with shortness of breath and cough that has been persistent and worsening for several weeks. Possible pneumonia seen in lower right lobe on xray, no signs of fluid overload on exam. Concerning decreased in aeration on lung auscultation compared to yesterday, associated with worsening SOB. Would recommend CTPE to rule out PE. Plan: 1. Shortness of breath: Possibly due to pneumonia. Started on IV Levaquin 750mg q48, day 2. On 3L O2 NC with sat of 93%. Use Bipap as needed for worsening symptoms. Duonebs PRN. Repeat CXR shows no changes. Would recommend CTPE. Decreased aeration. Would recommend IV prednisolone. 2. CHF: no signs of fluid overload on exam, no JVD, no pedal edema, no crackles in lungs. BNP is elevated to 4446. Given 40mg IV Lasix in ED. Resume home meds: 20 mg Lasix daily. Amlodipine 5mg daily. 81 mg ASA daily. EF of 55-60%. 3. CKD: Check BMP q24. Creatinine 1.17, slight increase from yesterday. Had COLTEN in last hospital admission earlier this week. 4. T2DM: Well controlled BG, q4hrs. Lantus 12units SQ qAM and 10 units SQ qPM, SSI NovoLog. 5. HTN: Hold home Enalapril for renal function. Give hydralazine PRN. 6. HLD: 20mg Atorvastatin PO daily. 7. Hypothyroidism: 75mcg daily. 8. DVT prophylaxis: 5000 units of heparin SQ q12h. 9. Elevated troponin: chronic. EKG shows no changes. Trending downward. 10. Arthritis: restart home Mobic. Will investigate previous dosage, unknown to patient. Disposition: Will continue to investigate possible causes of patient's shortness of breath and monitor on telemetry. Continued [facility] stay due to: abnormal vital signs Discharge planning: uncertain
[2017-08-16] MEDS ORDERED: OPTIRAY 320 IV PRN (10:15)
[2017-08-16] MEDS: METHYLPREDNISOLONE IV 60 MG in SYRINGE 0 ML IV SCH ×2 (10:30→21:48)
--- NOTE | 2017-08-16 11:13 | DIAGNOSTIC IMAGING REPORT ---
(CHEST FOR PE) ANGIO WITH CT DOSE: 359.54 mGy.cm HISTORY: 86 years-old Female presents with acute atypical chest pain TECHNIQUE: Multiple CTA images of the chest were obtained after the intravenous administration of 81 ml Optiray 320. Coronal and sagittal MIPS were obtained from the axial data set and were submitted for review. A dose lowering technique was utilized adhering to the principles of ALARA. COMPARISON: Chest radiograph of same day, CTA of the chest 07/22/2017. FINDINGS: CTA: Heart is mildly enlarged. Dense mitral annular calcifications are seen. Prosthetic aortic valve. Coronary arterial disease with moderate atrophy chronic plaquing of the thoracic aorta. The left cardiac chambers and thoracic aorta are not well opacified. No aortic aneurysm identified. The pulmonary arterial tree is opacified to level of the segmental branches and demonstrates no focal filling defects to suggest pulmonary thromboembolic disease. The distal segmental and subsegmental branches are not well evaluated secondary to respiratory motion. Small apparent filling defect of a left lower lobe subsegmental branch on image 13 series [address] CHEST: Thyroid appears enlarged and heterogeneous without dominant nodule identified. Mildly prominent nonspecific lymph nodes are seen about the chest with a 10 mm subcarinal lymph node. 8 mm left paratracheal lymph node seen on image 26 series 4. There are moderate bilateral pleural effusions with dependent bibasilar consolidation. Partially calcified lobulated mixed attenuating lesion of the right middle lobe is again seen on image 146 series 4 measuring 2.1 x 1.5 cm, unchanged from comparison study 07/22/2017. This may contain internal macroscopic fat attenuation. Moderate interlobular septal thickening with pulmonary vascular congestion is noted in addition to scattered round glass opacities and linear subsegmental densities. Patchy areas of geographic attenuation are noted. Mucous plugging noted within the right upper lobe. No pneumothorax. 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 Soft tissues are unremarkable. The bones appear intact. There are degenerative changes of the shoulders and spine. IMPRESSION: 1. No evidence of pulmonary thromboembolic disease or aortic aneurysm. Note however that the thoracic aorta is not well opacified. 2. Moderate pulmonary edema with moderate sized bilateral pleural effusions. Bibasilar consolidative opacities suggest compressive atelectasis with superimposed pneumonia also in the differential. 3. Unchanged lobulated lesion containing internal calcifications within the right middle lobe is again seen measuring up to 2.1 cm which appears unchanged from prior study. This lesion may contain internal macroscopic fat attenuation suggesting a possible hamartoma. Short-term three-month follow-up recommended to further evaluate. The above report was generated using voice recognition software. It may contain grammatical, syntax or spelling errors. Electronically signed by: Ramos Harrell M.D. 08/16/2017 11:12 AM Dictated Date/Time: 08/16/2017 11:03 AM
[2017-08-16] MEDS ORDERED: LORAZEPAM INJ 0.5 MG in SYRINGE 0.25 ML IV PRN (11:15)
--- NOTE | 2017-08-16 12:59 | Hospitalist Progress Note ---
Hospitalist Progress Note Date of Service Aug 16, 2017. Subjective Pt evaluation today including: conversation w/ patient, physical exam, lab review, review of inpatient medication list Voiding: no voiding problems Patient sitting in bedside chair. Feels breathing has not improved at all. Little sleep last night due to SOB. Feels as though she cannot take a deep breath. Denies palpations, or pleuritic chest pain- ordering CTA due to no improvement in symptoms. Worked w/ OT and states had a very difficult time with breathing. +decreased appetite. Patient denies any fever, chills, sweats, lightheadedness, dizziness, vision changes, CP, palpitations, edema, wheezing, cough, abdominal pain, nausea, vomiting, diarrhea, urinary symptoms, melena, numbness/tingling, weakness, muscle/joint pain, anxiety/depression, active bleeding, or new skin discoloration/changes. Per nursing- patient very anxious about feeling like she cannot breathe- IV Ativan PRN ordered. Medications Current Inpatient Medications Medications (Trade) Dose Ordered Sig/David Route Start Time Stop Time Status Last Admin Dose Admin Heparin Sodium (Porcine) (Heparin Sq 5000 Unit/0.5ml) 5,000 unit Q12 SQ 08/15/17 21:00 09/14/17 20:59 08/16/17 08:01 5,000 UNIT Acetaminophen (Tylenol Tab) 650 mg Q4H PRN PO 08/15/17 09:30 09/14/17 09:29 Al Hydrox/Mg Hydrox/Simethicone (Maalox Max Susp) 15 ml Q4H PRN PO 08/15/17 09:30 09/14/17 09:29 Magnesium Hydroxide (Milk Of Magnesia Susp) 30 ml Q12H PRN PO 08/15/17 09:30 09/14/17 09:29 Ondansetron HCl (Zofran Inj) 4 mg Q6H PRN IV 08/15/17 09:30 09/14/17 09:29 Nitroglycerin (Nitrostat Tab) 0.4 mg UD PRN SL 08/15/17 09:30 09/14/17 09:29 Morphine Sulfate (MoRPHine SULFATE INJ) 2 mg Q30M PRN IV 08/15/17 09:30 08/29/17 09:29 Polyethylene (Miralax Powder Packet) 17 gm DAILY PRN PO 08/15/17 09:30 09/14/17 09:29 Albuterol/ Ipratropium (Duoneb) 3 ml QIDR INH 08/15/17 12:00 09/14/17 11:59 08/16/17 07:23 3 ML Amlodipine Besylate (Norvasc Tab) 5 mg HS PO 08/15/17 21:00 09/14/17 20:59 08/15/17 20:36 5 MG Aspirin (Ecotrin Tab) 81 mg HS PO 08/15/17 21:00 09/14/17 20:59 08/15/17 20:35 81 MG Atorvastatin Calcium (Lipitor Tab) 20 mg HS PO 08/15/17 21:00 09/14/17 20:59 08/15/17 20:35 20 MG Cyanocobalamin (Vitamin B-12 Tab) 2,000 mcg DAILY PO 08/16/17 09:00 09/15/17 08:59 08/16/17 07:56 2,000 MCG Diphenoxylate HCl/ Atropine (Lomotil Tab) 1 tab QID PO 08/15/17 13:00 09/14/17 12:59 08/16/17 07:56 1 TAB Furosemide (Lasix Tab) 20 mg DAILY PO 08/16/17 09:00 09/15/17 08:59 08/16/17 07:55 20 MG Insulin Glargine (Lantus Solostar Pen) 10 units QPM SQ 08/15/17 21:00 09/14/17 20:59 08/15/17 20:32 10 UNITS Insulin Glargine (Lantus Solostar Pen) 12 units QAM SQ 08/16/17 09:00 09/15/17 08:59 08/16/17 08:00 12 UNITS Levothyroxine Sodium (Synthroid Tab) 75 mcg DAILYBB PO 08/16/17 06:30 09/15/17 06:29 08/16/17 05:51 75 MCG Multivitamins/ Minerals (Multivitamin W/ Minerals Tab) 1 tab DAILY PO 08/16/17 09:00 09/15/17 08:59 08/16/17 07:54 1 TAB Ropinirole HCl (Requip Tab) 1 mg QPM PO 08/15/17 21:00 09/14/17 20:59 08/15/17 20:34 1 MG Enalapril Maleate (Vasotec Tab) 20 mg DAILY PO 08/16/17 09:00 09/15/17 08:59 08/16/17 07:54 20 MG Miscellaneous Information (Order Awaiting Action) 1 ea QS N/A 08/15/17 16:00 09/14/17 15:59 Miscellaneous Information (Order Awaiting Action) 1 ea QS N/A 08/15/17 16:00 09/14/17 15:59 Insulin Aspart (novoLOG ASPART) SLIDING SCALE G... ACHS SC 08/15/17 11:00 09/14/17 10:59 08/15/17 17:46 2 UNITS Levofloxacin 750 mg/Prmx 150 ml @ 100 mls/hr Q48H IV 08/17/17 09:00 08/24/17 08:59 Levofloxacin (Consult) 1 ea UD PRN N/A 08/15/17 11:45 09/14/17 11:44 Ropinirole HCl (Requip Tab) 0.5 mg DAILY PRN PO 08/15/17 13:30 09/14/17 13:29 08/16/17 07:55 0.5 MG Guaifenesin (Robitussin Sugar Free Syrup) 100 mg Q6H PRN PO 08/16/17 00:30 09/15/17 00:29 08/16/17 01:58 100 MG Methylprednisolone Sodium Succinate 60 mg/Syringe 0.96 ml @ 1.5 mls/min Q12H IV 08/16/17 10:00 09/15/17 09:59 08/16/17 10:30 1.5 MLS/MIN Ioversol (Optiray 320) 100 ml UD PRN IV 08/16/17 10:15 08/20/17 10:14 Objective Vital Signs Date Time Temp Pulse Resp B/P (MAP) Pulse Ox O2 Delivery O2 Flow Rate FiO2 08/16/17 08:00 Nasal Cannula 4.0 08/16/17 07:37 36.3 97 22 171/73 (105) 93 Nasal Cannula 3.0 08/16/17 07:25 88 20 93 Nasal Cannula 3.0 08/16/17 04:30 84 18 92 Nasal Cannula 2.0 08/16/17 04:19 36.6 86 18 147/64 (91) 90 Nasal Cannula 2.0 08/16/17 04:19 95 Nasal Cannula 2.0 08/16/17 00:00 95 Nasal Cannula 2.0 08/15/17 23:42 36.6 88 18 135/55 (81) 94 Nasal Cannula 2.0 08/15/17 20:00 95 Nasal Cannula 2.0 08/15/17 19:57 86 16 95 Nasal Cannula 2.0 08/15/17 19:50 36.6 80 18 138/65 (89) 96 Nasal Cannula 2.0 08/15/17 16:14 95 Nasal Cannula 2.0 08/15/17 15:32 79 16 95 Nasal Cannula 2.0 08/15/17 14:43 36.3 85 20 128/66 (86) 95 Nasal Cannula 5.0 08/15/17 12:22 36.5 93 20 148/61 (90) 96 Nasal Cannula 5.0 Physical Exam General Appearance: no apparent distress, + pertinent finding (O2 NC ) Eyes: normal inspection, PERRL ENT: hearing grossly normal Neck: supple Respiratory/Chest: no respiratory distress, no accessory muscle use, + decreased breath sounds (throughout all lung spence ), + wheezing (expiratory wheeze upper lung spence ) Cardiovascular: regular rate, rhythm, + systolic murmur Abdomen: normal bowel sounds, non tender, soft Extremities: no pedal edema, no calf tenderness Neurologic/Psychiatric: alert, normal mood/affect, oriented x 3 Skin: normal color, warm/dry, no rash Laboratory Results Last 24 Hours Test 08/15/17 11:30 08/15/17 15:30 08/15/17 15:51 08/15/17 16:04 Bedside Glucose 136 mg/dl 122 mg/dl Creatine Kinase MB Ratio Creatine Kinase MB 7.9 ng/ml Troponin I 0.151 ng/ml Test 08/15/17 20:04 08/15/17 23:26 08/16/17 05:28 08/16/17 07:15 Bedside Glucose 151 mg/dl 102 mg/dl Creatine Kinase MB 7.2 ng/ml Creatine Kinase MB Ratio Troponin I 0.153 ng/ml White Blood Count 7.90 K/uL Red Blood Count 3.60 M/uL Hemoglobin 11.1 g/dL Hematocrit 33.2 % Mean Corpuscular Volume 92.2 fL Mean Corpuscular Hemoglobin 30.8 pg Mean Corpuscular Hemoglobin Concent 33.4 g/dl RDW Standard Deviation 51.4 fL RDW Coefficient of Variation 15.4 % Platelet Count 365 K/uL Mean Platelet Volume 10.5 fL Sodium Level 134 mmol/L Potassium Level 4.2 mmol/L Chloride Level 102 mmol/L Carbon Dioxide Level 23 mmol/L Anion Gap 9.0 mmol/L Blood Urea Nitrogen 23 mg/dl Creatinine 1.17 mg/dl Est Creatinine Clear Calc Drug Dose 27.8 ml/min Estimated GFR () 49.2 Estimated GFR (Non- 42.5 BUN/Creatinine Ratio 19.7 Random Glucose 116 mg/dl Calcium Level 8.5 mg/dl Assessment and Plan Patient is a pleasant 86 y/o female, with PMHx of chronic diastolic CHF, CKD stage III, T2DM, HTN, HLD, hypothyroidism, and RLS, who presented to the ED because of worsening shortness of breath and fatigue x1 day. Acute respiratory failure w/ hypoxia, likely secondary to PNA: - Admit to tele for cardiac monitoring - Trend cardiac enzymes- chronically elevated around- 0.15-0.2- peaked at 0.178 and trended down - EKG w/out acute ischemic changes; follow EKG QAM and PRN for chest pain - O2 protocol, wean as tolerated- does NOT have O2 supplement at home - IV Levaquin- started on 08/15 - DuoNeb QID and PRN for SOB/wheezing, flutter valve, incentive spirometer - Robitussin 100 mg q6 hrs PRN for cough - BCx pending; MRSA swab negative; sputum cultures NG - Start IV Solu Medrol 60 mg BID - CTA w/out PE, evidence of pulmonary edema and moderate bilateral pleural effusions- IV Lasix 40 mg x1 today R middle lobe lesion: f/u in 3 months recommended Anxiety: IV Ativan 0.5 mg PRN for anxiety/SOB Chronic diastolic CHF: - Treated w/ IV Lasix 40 mg x1 in ED; continue Lasix 20 mg daily- will give additional IV Lasix 40 mg x1 as above - Monitor I&Os and daily weights- baseline weight ~57kg CKD stage III- STABLE T2DM: - Continue Lantus 12 u QAM and 10 u QPM - BSG ACHS and ISS HTN: Continue Norvasc 5 mg daily, Lotensin 20 mg daily HLD: Lipitor 20 mg HS Hypothyroidism- TSH WNL: Continue Synthroid 75 mcg daily RLS: Continue Requip 1 mg HS and 0.5 mg daily PRN DVT prophylaxis: Heparin SQ BID Code Status: LEVEL I, FULL Dispo: Discharge uncertain at this time- PT/OT and CM consulted
[2017-08-16] MEDS ORDERED: FUROSEMIDE INJ 40 MG in SYRINGE 0 ML IV ONE (14:00)
--- NOTE | 2017-08-16 16:21 | ECHOCARDIOGRAM REPORT ---
*NOTICE TO RECEIVING [employer] This information is strictly Confidential and protected under [place] law. [place] law prohibits you from making any further disclosure of this information unless further disclosure is expressly permitted by the written consent of the person to whom it pertains or is authorized by law. A general authorization for the release of medical or other information is not sufficient for this purpose. Hospital accepts no responsibility if the information is made available to any other person, INCLUDING THE PATIENT. Interpretation Summary * Name: ALEX DOTY Study Date: 08/16/2017 02:02 PM BP: 152/67 mmHg * Patient Location: .[facility]\S\N286\S\2 HR: 99 * : 1930 (M/d/yyyy) Gender: Female Height: 62 in * Age: 86 yrs Ethnicity: [place] Weight: 128 lb * Ordering Physician: Deangelo Egan * Referring Physician: Self, Referred * Performed By: Kaitlin Arellano RCS * * Reason For Study: CHF * BSA: 1.6 m2 * -- Conclusions -- * Left ventricular systolic function is normal. * No regional wall motion abnormalities noted. * Ejection Fraction = 60-65%. * There is mild concentric left ventricular hypertrophy. * Diastolic dysfunction, Grade II (pseudonormalization pattern). 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 * Mild aortic regurgitation. * There is mild mitral regurgitation. * There is mild tricuspid regurgitation. Procedure Details * A complete two-dimensional transthoracic echocardiogram was performed (2D, M-mode, Doppler and color flow Doppler). Left Ventricle * The left ventricular cavity is small. * There is mild concentric left ventricular hypertrophy. * Left ventricular systolic function is normal. * Ejection Fraction = 60-65%. * No regional wall motion abnormalities noted. Right Ventricle * The right ventricle is grossly normal size. * The right ventricular systolic function is normal as assessed by tricuspid annular plane systolic excursion (TAPSE) (normal >1.5 cm). Atria * The left atrium is mildly dilated. * The right atrium is mildly dilated. * No ASD detected; PFO is not assessed. Mitral Valve * The mitral valve is grossly normal. * There is moderate to severe mitral annular calcification. * There is no mitral valve stenosis. * There is mild mitral regurgitation. Tricuspid Valve * The tricuspid valve is not well visualized, but is grossly normal. * There is no tricuspid stenosis. * There is mild tricuspid regurgitation. Aortic Valve * Mild aortic regurgitation. * The prosthetic aortic valve is not well visualized. 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 Pulmonic Valve * The pulmonary valve is not well seen, but the Doppler examination is normal without significant regurgitation or stenosis. Great Vessels * The aortic root is normal size. * The pulmonary is not well visualized. Pericardium/Pleural * There is no pericardial effusion. Great Vessels * Normal inferior vena cava size and collapsability with sniff indicates a normal right atrial pressure of 3 mmHg Left Ventricular Diastolic Function * Diastolic dysfunction, Grade II (pseudonormalization pattern). MMode 2D Measurements and Calculations IVSd 1.4 cm IVSs 1.5 cm LVIDd 3.7 cm LVIDs 3.0 cm LVPWd 1.1 cm LVPWs 1.6 cm IVS/LVPW 1.3 FS 19.3 % EDV(Teich) 58.9 ml ESV(Teich) 35.1 ml EF(Teich) 40.4 % EDV(cubed) 51.5 ml ESV(cubed) 27.1 ml EF(cubed) 47.4 % % IVS thick 8.2 % % LVPW thick 50.7 % LV mass(C)d 152.9 grams LV mass(C)dI 96.7 grams/m\S\2 LV mass(C)s 166.9 grams LV mass(C)sI 105.6 grams/m\S\2 SV(Teich) 23.8 ml SI(Teich) 15.0 ml/m\S\2 SV(cubed) 24.4 ml SI(cubed) 15.4 ml/m\S\2 Ao root diam 3.0 cm Ao root area 6.9 cm\S\2 LVOT diam 1.8 cm LVOT area 2.5 cm\S\2 Doppler Measurements and Calculations MV E max nestor 199.5 cm/sec MV A max nestor 151.0 cm/sec MV E/A 1.3 MV P1/2t max nestor 189.8 cm/sec MV P1/2t 59.1 msec MVA(P1/2t) 3.7 cm\S\2 MV dec slope 940.5 cm/sec\S\2 MV dec time 0.16 sec Ao V2 max 283.1 cm/sec Ao max PG 32.1 mmHg Ao max PG (full) 27.5 mmHg Ao V2 mean 189.9 cm/sec Ao mean PG 16.2 mmHg Ao V2 VTI 57.1 cm ALBER(V,A) 0.96 cm\S\2 ALBER(V,D) 0.96 cm\S\2 AI max nestor 308.2 cm/sec AI max PG 38.0 mmHg AI dec slope 422.2 cm/sec\S\2 AI P1/2t 213.8 msec LV V1 max PG 4.6 mmHg LV V1 max 106.7 cm/sec MR max nestor 615.4 cm/sec MR max PG 151.5 mmHg SV(Ao) 397.0 ml SI(Ao) 251.1 ml/m\S\2 PA V2 max 101.8 cm/sec PA max PG 4.1 mmHg TR max nestor 300.3 cm/sec
[2017-08-16] MEDS: AMLODIPINE BESYLATE 5 MG TAB PO SCH (20:31)
[2017-08-16] MEDS: ATORVASTATIN 20 MG TAB PO SCH (20:31)
[2017-08-16] MEDS: ASPIRIN 81 MG ECTAB PO SCH (20:31)
[2017-08-16] MEDS: ROPINIROLE HCL 1 MG TAB PO SCH (20:31)
[2017-08-17] VITALS (11 sets, daily range): BP systolic 112–144; BP diastolic 53–65; PULSE 61–94; TEMP 36.4–36.8; O2SAT 93–99
[2017-08-17] MEDS: LEVOTHYROXINE 75 MCG TAB PO SCH (06:10)
[2017-08-17 06:30] LABS: MEAN CELL VOLUME 92.1 fL (80-100); MEAN CORPUSCULAR HEMOGLOBIN 31.1 pg (25-34); MEAN CORPUSCULAR HGB CONC 33.7 g/dl (32-36); MEAN PLATELET VOLUME 10.2 fL (7.4-10.4); PLATELET COUNT 404 K/uL (130-400); WHITE BLOOD COUNT 10.03 K/uL (4.8-10.8)
[2017-08-17] MEDS: ALBUT/IPRATROP 3MG/0.5MG NEB 3 ML VIAL INH SCH ×4 (06:55→19:50)
[2017-08-17 07:11] LABS: BUN/CREATININE RATIO 21.8 (10-20); CALCIUM 8.9 mg/dl (8.5-10.1); CREATININE 1.27 mg/dl (0.60-1.20); POTASSIUM 4.5 mmol/L (3.5-5.1)
[2017-08-17] MEDS: SYSTANE~ORDER AWAITING ACTION SCH ×4 (07:46→23:15)
[2017-08-17] MEDS: CEROVITE ADV FORMULA TAB PO SCH (07:54)
[2017-08-17] MEDS: DIPHENOXYLATE/ATROPINE 2.5/0.025MG TAB PO SCH ×4 (07:54→19:44)
[2017-08-17] MEDS: LEVOFLOXACIN / D5W 750 MG in PREMIXED IN D5W 150 ML IV SCH (07:54)
[2017-08-17] MEDS: ENALAPRIL MALEATE 10 MG TAB PO SCH (07:54)
[2017-08-17] MEDS: FUROSEMIDE 20 MG TAB PO SCH (07:54)
[2017-08-17] MEDS: CYANOCOBALAMIN 500 MCG TAB (VIT B-12) PO SCH (07:55)
[2017-08-17] MEDS: INSULIN ASPART 100 UNITS/ML 3 ML PEN SC SCH ×4 (07:57→20:44)
[2017-08-17] MEDS: HEPARIN SOD 5000 UNIT/0.5 ML CARP SQ SCH ×2 (07:58→20:45)
[2017-08-17] MEDS: INSULIN GLARGINE SOLOSTAR 100 UNITS/ML 3 ML PEN SQ SCH ×2 (07:58→20:49)
[2017-08-17] MEDS: ROPINIROLE HCL 1 MG TAB PO PRN (08:26)
[2017-08-17] MEDS: METHYLPREDNISOLONE IV 60 MG in SYRINGE 0 ML IV SCH ×2 (09:37→20:46)
--- NOTE | 2017-08-17 14:35 | Progress Note ---
Subjective Date of Service: Aug 17, 2017. Subjective Pt evaluation today including: conversation w/ patient, physical exam, chart review, lab review, review of studies, review of inpatient medication list Resting comfortably in chair States improvement in shortness of breath Also less productive sputum Problem List Medical Problems: (1) ACS (acute coronary syndrome) Status: Acute (2) CHF (congestive heart failure) Status: Acute (3) CHF (congestive heart failure) Status: Acute (4) CHF (congestive heart failure) Status: Acute (5) Elevated troponin Status: Acute (6) Elevated troponin Status: Acute (7) Hypoxia Status: Acute (8) Hypoxia Status: Acute (9) Pain in both wrists Status: Acute (10) PNA (pneumonia) Status: Acute (11) Pneumonia Status: Acute Review of Systems Constitutional: No fever, No chills, No sweats, No weight loss, No weakness Eyes: No worsening of vision, No eye pain, No redness, No discharge Respiratory: + cough, + sputum, + dyspnea on exertion, No wheezing, No shortness of breath, No dyspnea at rest Cardiac: No chest pain, No orthopnea, No PND, No edema Abdomen: No pain, No nausea, No vomiting, No diarrhea, No constipation Musculoskeletal: No joint pain, No muscle pain, No swelling, No calf pain Female : No dysuria, No urinary frequency, No hematuria, No incontinence Neurologic: No memory loss, No paralysis, No weakness, No numbness/tingling Psychiatric: No depression symptoms, No anhedonism, No anxiety, No insomnia Endo: No fatigue, No excessive thirst Skin: No rash, No itch Objective Vital Signs Date Time Temp Pulse Resp B/P (MAP) Pulse Ox O2 Delivery O2 Flow Rate FiO2 08/17/17 12:30 Nasal Cannula 2.0 08/17/17 11:34 61 15 97 Nasal Cannula 2.0 08/17/17 11:17 36.8 74 18 114/59 (77) 99 Nasal Cannula 2.0 08/17/17 07:45 Nasal Cannula 2.0 08/17/17 07:11 36.6 86 18 144/63 (90) 97 Nasal Cannula 2.0 08/17/17 06:55 78 15 94 Nasal Cannula 2.0 08/17/17 05:06 36.7 93 16 128/61 (83) 94 Nasal Cannula 2.0 08/17/17 04:05 Nasal Cannula 2.0 08/17/17 00:04 Nasal Cannula 2.0 08/16/17 23:13 36.8 90 16 123/53 (76) 95 Nasal Cannula 08/16/17 20:11 Nasal Cannula 2.0 08/16/17 19:48 89 15 96 Nasal Cannula 2.0 08/16/17 19:17 36.3 81 18 144/73 (96) 96 Nasal Cannula 2.0 08/16/17 16:00 Nasal Cannula 2.0 08/16/17 15:32 89 15 92 Nasal Cannula 2.0 08/16/17 14:47 36.5 98 22 175/70 (105) 90 Nasal Cannula 2.0 152/67 (95) Physical Exam General Appearance: WD/WN, no apparent distress Eyes: normal inspection, PERRL, EOMI, sclerae normal Neck: supple, no adenopathy, thyroid normal, no JVD Respiratory/Chest: chest non-tender, lungs clear, normal breath sounds, no respiratory distress Cardiovascular: regular rate, rhythm, no edema, no gallop, no JVD Abdomen: normal bowel sounds, non tender, soft, no organomegaly Extremities: normal range of motion, non-tender, normal inspection, no pedal edema Neurologic/Psychiatric: no motor/sensory deficits, alert, normal mood/affect, oriented x 3 Skin: normal color, warm/dry, no rash Lymphatic: no adenopathy Laboratory Results Last 24 Hours Test 08/16/17 16:25 08/16/17 20:30 08/17/17 00:00 08/17/17 06:09 Bedside Glucose 202 mg/dl 226 mg/dl White Blood Count 10.03 K/uL Red Blood Count 3.80 M/uL Hemoglobin 11.8 g/dL Hematocrit 35.0 % Mean Corpuscular Volume 92.1 fL Mean Corpuscular Hemoglobin 31.1 pg Mean Corpuscular Hemoglobin Concent 33.7 g/dl RDW Standard Deviation 50.9 fL RDW Coefficient of Variation 15.4 % Platelet Count 404 K/uL Mean Platelet Volume 10.2 fL Sodium Level 134 mmol/L Potassium Level 4.5 mmol/L Chloride Level 101 mmol/L Carbon Dioxide Level 26 mmol/L Anion Gap 7.0 mmol/L Blood Urea Nitrogen 28 mg/dl Creatinine 1.27 mg/dl Est Creatinine Clear Calc Drug Dose 25.6 ml/min Estimated GFR () 44.6 Estimated GFR (Non- 38.5 BUN/Creatinine Ratio 21.8 Random Glucose 165 mg/dl Calcium Level 8.9 mg/dl Test 08/17/17 07:33 08/17/17 11:13 Bedside Glucose 160 mg/dl 176 mg/dl Assessment and Plan Patient is a pleasant 86 y/o female, with PMHx of chronic diastolic CHF, CKD stage III, T2DM, HTN, HLD, hypothyroidism, and RLS, who presented to the ED because of worsening shortness of breath and fatigue x1 day. Pt recently discharged on 08/13 and was thought to have URI and was given a course of azithromycin in addition to albuterol inhaler. Pt stated she initially felt well but then stated worsening shortness of breath with exertion despite albuterol use. Acute respiratory failure w/ hypoxia secondary to PNA vs acute on chronic CHF - Admit to tele for cardiac monitoring - Trend cardiac enzymes- chronically elevated around -0.15-0.2 - EKG w/out acute ischemic changes; follow EKG QAM and PRN for chest pain - O2 protocol, wean as tolerated- does NOT have O2 supplement at home - Cont IV Levaquin, can taper solumedrol to prednisone - DuoNeb QID and PRN for SOB/wheezing, flutter valve, incentive spirometer - BCx, MRSA swab, and sputum cultures NGTD Acute on chronic diastolic CHF: - Treated w/ IV Lasix 40 mg x1 in ED - CTA chest completed on 08/16 due to worsening sob, noted bilateral pleural effusions, no PE, treated with lasix 40 mg IV x 1 - Hold lasix at this time due to elev Cr - ECHO completed 08/16, preserved EF 60-65%, noted grade II diastolic dysfunction - Monitor I&Os and daily weights CKD stage III- STABLE T2DM: - Continue Lantus 12 u QAM and 10 u QPM - BSG ACHS and ISS HTN: Continue Norvasc 5 mg daily, Lotensin 20 mg daily HLD: Lipitor 20 mg HS Hypothyroidism- TSH WNL: Continue Synthroid 75 mcg daily RLS: Continue Requip 1 mg HS DVT prophylaxis: Heparin SQ BID Code Status: LEVEL I, FULL Dispo: Discharge to home- PT/OT and CM consulted Continued [facility] stay due to: abnormal vital signs Discharge planning: uncertain
[2017-08-17] MEDS: AMLODIPINE BESYLATE 5 MG TAB PO SCH (20:47)
[2017-08-17] MEDS: ROPINIROLE HCL 1 MG TAB PO SCH (20:47)
[2017-08-17] MEDS: ASPIRIN 81 MG ECTAB PO SCH (20:47)
[2017-08-17] MEDS: ATORVASTATIN 20 MG TAB PO SCH (20:47)
[2017-08-18] VITALS (10 sets, daily range): BP systolic 94–151; BP diastolic 58–74; PULSE 71–104; TEMP 36.3–36.6; O2SAT 90–96
[2017-08-18] MEDS: LEVOTHYROXINE 75 MCG TAB PO SCH (05:33)
[2017-08-18] MEDS: ALBUT/IPRATROP 3MG/0.5MG NEB 3 ML VIAL INH SCH ×4 (07:06→20:00)
[2017-08-18 07:13] LABS: BUN/CREATININE RATIO 27.8 (10-20); CALCIUM 8.6 mg/dl (8.5-10.1); CREATININE 1.39 mg/dl (0.60-1.20); POTASSIUM 4.2 mmol/L (3.5-5.1)
[2017-08-18] MEDS: SYSTANE~ORDER AWAITING ACTION SCH ×3 (07:20→23:17)
[2017-08-18] MEDS: DIPHENOXYLATE/ATROPINE 2.5/0.025MG TAB PO SCH ×4 (08:01→21:00)
[2017-08-18] MEDS: ENALAPRIL MALEATE 10 MG TAB PO SCH (08:04)
[2017-08-18] MEDS: CYANOCOBALAMIN 500 MCG TAB (VIT B-12) PO SCH (08:04)
[2017-08-18] MEDS: FUROSEMIDE 20 MG TAB PO SCH (08:04)
[2017-08-18] MEDS: CEROVITE ADV FORMULA TAB PO SCH (08:04)
[2017-08-18] MEDS: GUAIFENESIN SUGAR FREE 100 MG/5 ML UDC PO PRN (08:04)
[2017-08-18] MEDS: INSULIN ASPART 100 UNITS/ML 3 ML PEN SC SCH ×4 (08:08→21:14)
[2017-08-18] MEDS: INSULIN GLARGINE SOLOSTAR 100 UNITS/ML 3 ML PEN SQ SCH ×2 (08:09→21:14)
[2017-08-18] MEDS: HEPARIN SOD 5000 UNIT/0.5 ML CARP SQ SCH ×2 (08:09→21:15)
[2017-08-18] MEDS: ROPINIROLE HCL 1 MG TAB PO PRN (08:10)
[2017-08-18 08:20] LABS: HEMATOCRIT 35.1 % (37-47); MEAN CELL VOLUME 91.9 fL (80-100); MEAN CORPUSCULAR HEMOGLOBIN 31.2 pg (25-34); MEAN CORPUSCULAR HGB CONC 33.9 g/dl (32-36); MEAN PLATELET VOLUME 10.8 fL (7.4-10.4); PLATELET COUNT 440 K/uL (130-400); RED BLOOD COUNT 3.82 M/uL (4.2-5.4); WHITE BLOOD COUNT 16.57 K/uL (4.8-10.8)
[2017-08-18] MEDS: LORAZEPAM 0.5 MG TAB PO PRN ×2 (10:00→22:36)
[2017-08-18] MEDS ORDERED: METHYLPREDNISOLONE IV 60 MG in SYRINGE 0 ML IV ONE (11:00)
--- NOTE | 2017-08-18 12:32 | Hospitalist Progress Note ---
Hospitalist Progress Note Date of Service Aug 18, 2017. Subjective Pt evaluation today including: conversation w/ patient, conversation w/ family Pt still coughing up yellow sputum. Is concerned about taking prednisone as she was told previously that this is what caused her lungs to fill up with fluids ( after it stimulated her to eat salty foods). Is weaned off O2 at rest but still feels SOB with minimal exertion. Walked hallway last night and dropped to POx 92 % as per daughter. Has felt fatigued ever since her AVR surgery 18 months ago, wonders if she has been hypoxic this whole time All Other Systems: Reviewed and Negative Objective Vital Signs Date Time Temp Pulse Resp B/P (MAP) Pulse Ox O2 Delivery O2 Flow Rate FiO2 08/18/17 11:12 90 16 93 Room Air 08/18/17 10:58 36.5 83 18 94/73 (80) 93 Room Air 08/18/17 07:45 Room Air 08/18/17 07:16 36.6 104 20 151/74 (99) 96 Room Air 08/18/17 07:06 90 16 92 Room Air 08/18/17 04:00 Room Air 08/18/17 03:33 36.4 88 16 130/66 (87) 92 Room Air 08/18/17 00:00 Room Air 08/17/17 23:25 36.5 94 16 112/53 (72) 93 Room Air 08/17/17 20:21 36.4 81 16 133/65 (87) 98 Room Air 08/17/17 20:00 Room Air 08/17/17 20:00 94 Room Air 08/17/17 19:52 74 16 94 Room Air 08/17/17 16:00 Nasal Cannula 2.0 08/17/17 15:49 68 16 97 Nasal Cannula 1.0 08/17/17 15:22 36.5 86 18 144/65 (91) 95 Nasal Cannula 2.0 08/17/17 12:30 Nasal Cannula 2.0 Physical Exam General Appearance: WD/WN, no apparent distress Eyes: normal inspection, sclerae normal ENT: hearing grossly normal Neck: trachea midline Respiratory/Chest: no respiratory distress, no accessory muscle use, + decreased breath sounds (at the bases bilat, with mild exp wheezes in upper lung spence bilat) Cardiovascular: + tachycardia (mild, but regular), + systolic murmur (2/6 [place] at RUSB with loud S2) Abdomen: normal bowel sounds Extremities: non-tender, normal inspection, no pedal edema, no calf tenderness Neurologic/Psychiatric: alert, normal mood/affect, oriented x 3 Skin: normal color, warm/dry, no rash Laboratory Results Last 24 Hours Test 08/17/17 16:35 08/17/17 19:49 08/18/17 06:18 08/18/17 07:36 Bedside Glucose 192 mg/dl 164 mg/dl 167 mg/dl White Blood Count 16.57 K/uL Red Blood Count 3.82 M/uL Hemoglobin 11.9 g/dL Hematocrit 35.1 % Mean Corpuscular Volume 91.9 fL Mean Corpuscular Hemoglobin 31.2 pg Mean Corpuscular Hemoglobin Concent 33.9 g/dl RDW Standard Deviation 52.0 fL RDW Coefficient of Variation 15.8 % Platelet Count 440 K/uL Mean Platelet Volume 10.8 fL Sodium Level 133 mmol/L Potassium Level 4.2 mmol/L Chloride Level 101 mmol/L Carbon Dioxide Level 24 mmol/L Anion Gap 8.0 mmol/L Blood Urea Nitrogen 39 mg/dl Creatinine 1.39 mg/dl Est Creatinine Clear Calc Drug Dose 23.4 ml/min Estimated GFR () 40.0 Estimated GFR (Non- 34.5 BUN/Creatinine Ratio 27.8 Random Glucose 160 mg/dl Calcium Level 8.6 mg/dl Test 08/18/17 11:10 Bedside Glucose 132 mg/dl Assessment and Plan Patient is a pleasant 86 y/o female, with PMHx of chronic diastolic CHF, Aortic valve replacement, mild AI, CKD stage III, T2DM, HTN, HLD, hypothyroidism, and RLS, who presented to the ED because of worsening shortness of breath and fatigue x1 day. Pt recently discharged on 08/13 as well as a few weeks before that for similar symptoms and was treated as CHF exacerbation and acute bronchitis. She was thought to have URI and was given a course of azithromycin in addition to albuterol inhaler. Pt stated she initially felt well but then stated worsening shortness of breath with exertion despite albuterol use. Found to have moderate bilateral pleural effusions, and possible superimposed PNA on CT Chest. Acute respiratory failure w/ hypoxia secondary to PNA vs acute on chronic CHF/ Bilateral pleural effusions/RML lesion on CT--> with some wheezing, remote h/o social smoking, did not improve with course of azithro prior to admission. Now improving slightly on Levaquin. Still with productive yellow sputum - Admitted to tele for cardiac monitoring-NSR to ST on tele, PVCs - Trended cardiac enzymes- chronically elevated--> this admission 0.178/0.151/ 0.152, suspect underlying CAD especially given coronary artery calcifications on CT Chest - EKG w/out acute ischemic changes-has chronic LBBB - O2 protocol, wean as tolerated- does NOT have O2 supplement at home --> weaned off O2 now - Cont IV Levaquin, can taper solumedrol to prednisone for tomorrow--> making pt have insomnia and anxiety, is wheezing--> reduce dose to 20mg daily - DuoNeb QID and PRN for SOB/wheezing, flutter valve, incentive spirometer - BCx, MRSA swab, and sputum cultures NGTD -Consult Pulmonology for suspected PNA, hypoxemic respiratory failure requiring 3 admissions in 1 month, and RML lesion (saw Thoracic Surgery last admission and has not yet followed up in office due to recurrent hospitalizations) -needs f/u CT Chest in 3 months for RML lesion -f/u Legionella ag -diuresing as below Acute on chronic diastolic CHF/AVR and Mild AI/suspected CAD-ECHO completed , preserved EF 60-65%, noted grade II diastolic dysfunction, mild AI. Has lost 1.8 kg BW on standing scale, has diuresed -637 mL total this admission - Treated w/ IV Lasix 40 mg x1 in ED - CTA chest completed on 08/16 due to worsening sob, noted bilateral pleural effusions, no PE, treated with lasix 40 mg IV x 1 -service delivery analyst rising slightly -continue lasix 20mg po daily (recently started last week at Cardiology outpt visit) - follow PRP - Monitor I&Os and daily weights, low Na+ diet -continue ASA, statin, enalapril CKD stage III- baseline service delivery analyst around 1.1, currently up to 1.39 likely secondary to IV lasix -follow service delivery analyst -avoid nephrotoxins -ok to continue po lasix 20mg and enalapril for now -renally dose meds T2DM:last HgbA1C 6.9% 07/2017, well controlled - Continue Lantus 12 u QAM and 10 u QPM - BSG ACHS and ISS HTN: controlled - Continue Norvasc 5 mg daily, enalapril 20 mg daily HLD: Lipitor 20 mg HS Hypothyroidism- TSH WNL: Continue Synthroid 75 mcg daily RLS: Continue Requip 1 mg HS DVT prophylaxis: Heparin SQ BID Code Status: LEVEL I, FULL Dispo: Discharge to home in 1-2 days- PT/OT and CM consulted
--- NOTE | 2017-08-18 18:43 | Pulmonary Consultation ---
History General Date of Service: Aug 18, 2017. Stated Complaint: Pneumonia, Acute Respiratory Failure With Hypoxia HPI The patient is a 86 year old female who presents to [facility] with complaints of Pneumonia, Acute Respiratory Failure With Hypoxia. The patient's primary care provider is Musa Mejía MD. Very pleasant 86-year-old female admitted for acute on chronic respiratory insufficiency with notable hypoxemia requiring oxygen supplementation. Patient has a PmHx: Significant for chronic diastolic heart failure, aortic valve replacement, chronic kidney disease stage 3, diabetes mellitus, hypertension, hyperlipidemia, hypothyroidism and restless leg syndrome. Patient notes she has had chronic fatigue ever since her aortic valve replacement at [facility] on 11/10/2015. Patient was initially set up for tab are type procedure but required thoracoscopic approach secondary to abnormal iliac arteries. She has also been noted to have a right middle lobe lesion that has been evaluated by Dr. Getachew Lopez of from the CTS department. The patient notes she was in her normal state of health until 7-10 days ago when she started having increased salt in diet as well as treated in the emergency room via prednisone for gouty arthritis. Since then the patient noted increasing dyspnea on exertion but denied: Fever, chills, productive cough, classic cardiac chest pain or pleurisy. Over the last 6 months the patient has also denied unintentional weight loss or hemoptysis. Current Workup WBC 8K--17K PLT [id number] INR 1.0 PT 10.9 APTT 27.1 BNP 4445(08/15/17) BUN 39 Cr 0.94--1.39 UA within normal limits Troponin: 0.153, 0.151, 0.178 EKG: Sinus rhythm rate of 88 with a left bundle branch block Echocardiogram 08/16/2017 Left ventricle: EF 60 65 %, mild concentric left ventricular hypertrophy Right ventricle: TAPSE > 1.5 cm Left atrium: Mildly dilated Right atrium: Mildly dilated Aortic valve: Mild regurgitation, gradient within normal limits Pulmonic valve: Noted to be within normal limits IVC: Normal collapsibility Grade 2 pseudonormalization/diastolic dysfunctioning Chest x-ray 08/16/2017 compared to 08/15/2017, 08/13/2017, 08/11/2017, 2016 Hilar fullness, cephalization, costophrenic blunting left greater than right CT angiogram 08/16/2017 compared to 07/22/2017 No signs of pulmonary embolism Large bilateral pleural effusions with associated atelectasis RML 2.1 cm no acute changes Subcarinal adenopathy Microbiology: Blood cultures x2 no growth Expectorated sputum: Scant normal lacey MRSA nasal swab: Negative Pending: Urine Legionella antigen Microbiology History Urine 01/12/2017: Pansensitive Escherichia coli Treatments 1. Diuresis: -1L 2. Prednisone 20 mg p.o. daily 3. Levofloxacin 750 mg daily (Day 2) 4. Aspirin 81 mg daily 5. Requio 0.5mg (restless leg syndrome) 6. Duo nebs q.i.d. PmHx: 1. Acute congestive heart failure, unspecified congestive heart failure type 2. 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 TAVR 11/10/15 b. 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 Acute cystitis 4. Diabetes mellitus type 2 5. Dyslipidemia 6. Hearing loss 7. Hypertension 8. Hypothyroidism 9. Intermittent claudication 10. Left bundle-branch block 11. Lung nodule seen on imaging study 12. Mass of middle lobe of right lung 13. Muscle cramps 14. Osteopenia 15. Pain and swelling of wrist 16. Periodic limb movement disorder 17. Pleural effusion 18. Polyneuropathy 19. Rhinorrhea 20. History of Severe aortic stenosis 21. Vitamin D deficiency 22. Vitiligo Surgical History 1. Aortic Valve Replacement 11/10/2015 2. Appendectomy 3. Breast Surgery Lumpectomy 4. Cataract Surgery 5. Complete Colonoscopy 6. Coronary angiogram 10/10/2015 Family History Father myocardial infarction Brother diabetes mellitus Family History Atherosclerosis Social History Denied: History of Alcohol Use Dental care, regularly Does not use illicit drugs Exercises 3 to 4 times per week Former smoker (quit 45 years ago only smoked about 20 years intermittently/ socially) Living situation Never used moist powdered tobacco No secondhand smoke exposure Rarely consumes alcohol Retired Special needs due to hearing impairment Denied: History of Special needs due to visual impairment Current Meds Diabetes mellitus 1.BD Pen Needle Mini U/F 31G X 5 MM; Inject bid; 2.NovoFine 32G X 6 MM; USE TWICE A DAY DIRECTED; 3.[employer] Ultra Blue In Vitro Strip; TEST three times a day; 4.Sure Comfort Pen [place] 32G X 4 MM; USE TWICE A DAY DIRECTED; 5.Lantus SoloStar 100 UNIT/ML Subcutaneous Solution Pen-injector; INJECT 6.Diphenoxylate-Atropine 2.5-0.025 MG Oral Tablet; take 1 tablet by mouth 7.Atorvastatin Calcium 20 MG Oral Tablet; Take 1 tablet daily; 8.ICaps MV Oral Tablet; TAKE 1 TABLET DAILY; 9.Ocuvite TABS; TAKE 1 TABLET DAILY 10.Vitamin B-12 1000 MCG Oral Tablet; Take 2 tablets daily as directed 11.Vitamin D 1000 UNIT CAPS; TAKE 3 CAPSULE Daily 12.AmLODIPine Besylate 5 MG Oral Tablet; TAKE 1 TABLET EVERY DAY in 13.Benazepril HCl - 20 MG Oral Tablet; TAKE 1 TABLET DAILY; 14.HydroCHLOROthiazide 25 MG Oral Tablet; TAKE 1 TABLET DAILY 15.Levoxyl 75 MCG Oral Tablet; TAKE 1 TABLET BY MOUTH ONCE DAILY; 16.Meloxicam 15 MG Oral Tablet; take 1 tablet by mouth once a day for pain; 17.ROPINIRole HCl - 1 MG Oral Tablet; TAKE 1 TABLET AT BEDTIME; 18.Amoxicillin 500 MG Oral Tablet; take 4 tablets by mouth 1 hour prior to dental work 19.Aspirin 81 MG TABS; TAKE 1 TABLET DAILY; 20.Sure Comfort Pen [place] 32G X 4 MM; USE TWICE A DAY DIRECTED; 21.Bromfenac Sodium (Once-Daily) 0.09 % Ophthalmic Solution; INSTILL 1 22.Colace 100 MG Oral Capsule; TAKE ONE CAPSULE BY MOUTH TWICE 23.Furosemide 20 MG Oral Tablet; TAKE 1 TABLET daily prn if gain 2-3 lbs in Allergies 1. OxyCODONE HCl TABS 2. MetFORMIN HCl TABS Immunizations [email or web address] Influenza --- Series1: 04-Jun-2012; Series2: 05-Jun-2013; Series3: 02-Jun-2014; Series4: 02-Jun-2015; Series5: 05-Jun-2016; Series6: 09-May-2017; Series7: [id number] PCV --- Series1: 13-Jan-2015 PPSV --- Series1: 1997 Zoster --- Series1: 14-Mar-2007 Historian: patient, EMS Review of Systems Constitutional: reports: weakness Eyes: reports: no symptoms ENT: reports: no symptoms Cardiovascular: reports: no symptoms Respiratory: reports: as stated in HPI Gastrointestinal: reports: no symptoms Genitourinary - Female: reports: no symptoms Musculoskeletal: reports: no symptoms Integumentary: reports: no symptoms Neurologic: reports: no symptoms Psychiatric: reports: no symptoms Endocrine: no symptoms Hematologic / Lymphatic: no symptoms Allergic / Immunologic: no symptoms Past Medical History Past Medical History: Please refer to HPI Past Surgical History: Please refer to HPI Family History Diabetes mellitus FH: hypertension Heart disease Please refer to HPI Social History Please refer to HPI Hx Tobacco Use In Past Year?: No Smoking Status: Former Smoker (socially) Marital status: Housing status: lives alone Occupational Status: retired History of MDRO History of MDRO: No Allergies Coded Allergies: No Known Allergies (Unverified , 08/15/17) Current Medications Reported Home Medications Medications Dose Route/Sig Max Daily Dose Days Date Category Dose Instructions Ventolin Hfa (Albuterol) 60 Puffs/5400 Mcg Aers 2 Puff INH Q4H PRN 08/13/17 Rx Azithromycin 250 Mg Tab 250 Mg PO QAM 2 08/13/17 Rx Lasix (Furosemide) 20 Mg Tab 20 Mg PO DAILY 08/11/17 Reported D 1000 (Cholecalciferol) 1,000 Unit Cap 2,000 Units PO DAILY 07/22/17 Reported Requip (Ropinirole HCl) 1 Mg Tab 1 Mg PO QPM 07/18/17 Reported Lipitor (Atorvastatin Calcium) 20 Mg Tab 20 Mg PO HS 07/18/17 Reported Lantus Solostar (Insulin Glargine) 100 Unit/Ml Inj 10 Units SQ QPM 07/18/17 Reported Lantus Solostar (Insulin Glargine) 100 Unit/Ml Inj 12 Units SQ QAM 07/18/17 Reported Levothyroxine Sodium 75 Mcg Tab 75 Mcg PO DAILY 07/18/17 Reported Systane (Polyethylene Glycol-Propylene) 1 Gladys Gladys 1 Drops OP QPM 01/02/16 Reported Prolensa (Bromfenac Sodium (Ophth)) 0.07 % Gladys 1 Drop OPB QAM 01/02/16 Reported Aspirin Ec (Aspirin) 81 Mg Tab 81 Mg PO HS 01/02/16 Reported Icaps (Multiple Vitamins W/ Minerals) 1 Cap Cap 1 Cap PO DAILY 01/02/16 Reported Ocuvite Preservision (Multivitamins/Minerals) 1 Tab Tab 1 Tab PO DAILY 01/02/16 Reported Vitamin B-12 1000 Mcg (Cyanocobalamin) 1,000 Mcg Tab 2,000 Mcg PO DAILY 30 01/02/16 Reported Lomotil 2.5-0.025 mg (Diphenoxylate HCl/Atropine) 1 Ea Tab 1 Tab PO QID 5 01/02/16 Reported Norvasc (Amlodipine Besylate) 5 Mg Tab 5 Mg PO HS 09/24/11 Reported Lotensin (Benazepril HCl) 40 Mg Tab 20 Mg PO DAILY 09/24/11 Reported 1/2 TABLET DOSE Physical Physical Exam Vital Signs: Date Time Temp Pulse Resp B/P (MAP) Pulse Ox O2 Delivery O2 Flow Rate FiO2 08/18/17 15:23 71 16 91 Room Air 08/18/17 15:06 36.3 95 18 150/71 (97) 93 Room Air 08/18/17 12:30 Room Air 08/18/17 11:12 90 16 93 Room Air 08/18/17 10:58 36.5 83 18 94/73 (80) 93 Room Air 08/18/17 07:45 Room Air 08/18/17 07:16 36.6 104 20 151/74 (99) 96 Room Air 08/18/17 07:06 90 16 92 Room Air 08/18/17 04:00 Room Air 08/18/17 03:33 36.4 88 16 130/66 (87) 92 Room Air 08/18/17 00:00 Room Air 08/17/17 23:25 36.5 94 16 112/53 (72) 93 Room Air 08/17/17 20:21 36.4 81 16 133/65 (87) 98 Room Air 08/17/17 20:00 Room Air 08/17/17 20:00 94 Room Air 08/17/17 19:52 74 16 94 Room Air General Appearance: WELL-APPEARING, NO APPARENT DISTRESS Head: NORMOCEPHALIC, ATRAUMATIC Eyes: PERRLA, NO DISCHARGE, EOMI, SCLERAE NORMAL, CONJUNCTIVAE NORMAL ENT: NORMAL EAR EXAM, NORMAL NASAL EXAM, NORMAL MOUTH EXAM, NORMAL THROAT EXAM , NORMAL DENTAL EXAM Neck: NORMAL RANGE OF MOTION, NO TENDERNESS, TRACHEA MIDLINE, NO STRIDOR Respiratory: other (Crackles at the bases bilaterally but notable for large bilateral pleural effusion seen via ultrasound) Cardiovasular: REGULAR RATE/RHYTHM, NORMAL S1S2, NO M/G/R, NO MURMUR, NO GALLOP Abdomen: NON TENDER, NORMAL BOWEL SOUNDS, NO REBOUND, NO MASSES, NO GUARDING, NO ORGANOMEGALY Genitourinary - Female: EXTERNAL GENITALIA NORMAL Back: NORMAL INSPECTION, NO MIDLINE TENDERNESS, NO CVA TENDERNESS, NO PARAVERTEBRAL TTP Upper Extremities: NO EDEMA, NO DEFORMITY, NORMAL ROM Lower Extremities: NO EDEMA, NO DEFORMITY, NORMAL ROM Pulses: carotid (R) (1+), carotid (L) (1+), dorsalis pedis (R) (1+), dorsalis pedis (L) (1+) Neuro: ALERT, ORIENTED x 3, NORMAL MOTOR EXAM, NORMAL SENSATION, NORMAL CEREBELLAR EXAM, NORMAL SPEECH Reflexes: biceps (R) (2+), bicpes (L) (2+), patellar (R) (2+), patellar (L) (2+ ) Babinski Testing: right (downgoing), left (downgoing) Psychiatric: NORMAL AFFECT, NO SUICIDAL IDEATION Diagnostics Labs Results Past 24 Hours Test 08/17/17 19:49 08/18/17 06:18 08/18/17 07:36 08/18/17 11:10 Range/Units Bedside Glucose 164 167 132 70-90 mg/dl White Blood Count 16.57 4.8-10.8 K/uL Red Blood Count 3.82 4.2-5.4 M/uL Hemoglobin 11.9 12.0-16.0 g/dL Hematocrit 35.1 37-47 % Mean Corpuscular Volume 91.9 80-100 fL Mean Corpuscular Hemoglobin 31.2 25-34 pg Mean Corpuscular Hemoglobin Concent 33.9 32-36 g/dl RDW Standard Deviation 52.0 36.4-46.3 fL RDW Coefficient of Variation 15.8 11.5-14.5 % Platelet Count 440 130-400 K/uL Mean Platelet Volume 10.8 7.4-10.4 fL Sodium Level 133 136-145 mmol/L Potassium Level 4.2 3.5-5.1 mmol/L Chloride Level 101 98-107 mmol/L Carbon Dioxide Level 24 21-32 mmol/L Anion Gap 8.0 3-11 mmol/L Blood Urea Nitrogen 39 7-18 mg/dl Creatinine 1.39 0.60-1.20 mg/dl Est Creatinine Clear Calc Drug Dose 23.4 ml/min Estimated GFR () 40.0 Estimated GFR (Non- 34.5 BUN/Creatinine Ratio 27.8 10-20 Random Glucose 160 70-99 mg/dl Calcium Level 8.6 8.5-10.1 mg/dl Test 08/18/17 16:29 Range/Units Bedside Glucose 199 70-90 mg/dl Diagnostic Radiology Please refer to HPI EKG Please refer to HPI Impression Assessment and Plan 86-year-old female admitted for acute on chronic respiratory insufficiency and associated bilateral pleural effusions: 1. Respiratory insufficiency: At this time it is most likely that the patient is having chronic diastolic dysfunctioning. Her bilateral pleural effusions and elevated BNP of 4445 her consistent with the diagnosis. Also echocardiogram shows signs of left ventricular hypertrophy along with dilated left atrium and pseudonormalization grade 2 diastolic dysfunctioning pattern. The patient I spoke at length about these issues and I offered her a thoracentesis for evaluation of the pleural fluid etiologies as well as possible therapeutic relief of her shortness of breath. The patient at this time would like to speak to her daughter and possibly proceed tomorrow morning. 2. Right middle lobe nodule: Patient has had a right middle lobe nodule seen on CT angiogram 08/16/2017 as well as 07/22/2017 with no signs of growth. Based off her historical/clinical data the patient is a low risk for primary lung carcinoma but if evaluated using the salt a pulmonary nodule/[facility] risk calculator she has a an overall probability of 73% for primary malignancy. The patient was told during her visit at [facility] she had a nodule in her right side. Obtaining the CT images would greatly help further evaluate this issue.
[2017-08-18] MEDS ORDERED: METHYLPREDNISOLONE IV 60 MG in SYRINGE 0 ML IV SCH (21:00)
[2017-08-18] MEDS: ATORVASTATIN 20 MG TAB PO SCH (21:07)
[2017-08-18] MEDS: ASPIRIN 81 MG ECTAB PO SCH (21:07)
[2017-08-18] MEDS: ROPINIROLE HCL 1 MG TAB PO SCH (21:08)
[2017-08-18] MEDS: AMLODIPINE BESYLATE 5 MG TAB PO SCH (21:08)
[2017-08-19] VITALS (13 sets, daily range): BP systolic 103–162; BP diastolic 59–71; PULSE 72–102; TEMP 36.3–36.8; O2SAT 90–96
[2017-08-19 06:28] LABS: BUN/CREATININE RATIO 34.2 (10-20); CALCIUM 8.7 mg/dl (8.5-10.1); CREATININE 1.33 mg/dl (0.60-1.20); MAGNESIUM 2.3 mg/dl (1.8-2.4); POTASSIUM 3.9 mmol/L (3.5-5.1)
[2017-08-19] MEDS: LEVOTHYROXINE 75 MCG TAB PO SCH (06:28)
[2017-08-19] MEDS: ALBUT/IPRATROP 3MG/0.5MG NEB 3 ML VIAL INH SCH ×4 (07:19→20:17)
[2017-08-19] MEDS: INSULIN ASPART 100 UNITS/ML 3 ML PEN SC SCH ×4 (08:59→21:31)
[2017-08-19] MEDS: SYSTANE~ORDER AWAITING ACTION SCH ×3 (09:00→22:55)
[2017-08-19] MEDS: DIPHENOXYLATE/ATROPINE 2.5/0.025MG TAB PO SCH ×5 (09:00→21:00)
[2017-08-19] MEDS: HEPARIN SOD 5000 UNIT/0.5 ML CARP SQ SCH ×2 (09:00→21:32)
[2017-08-19] MEDS: LEVOFLOXACIN / D5W 750 MG in PREMIXED IN D5W 150 ML IV SCH (09:00)
[2017-08-19] MEDS: ENALAPRIL MALEATE 10 MG TAB PO SCH (09:01)
[2017-08-19] MEDS: CYANOCOBALAMIN 500 MCG TAB (VIT B-12) PO SCH (09:02)
[2017-08-19] MEDS: INSULIN GLARGINE SOLOSTAR 100 UNITS/ML 3 ML PEN SQ SCH ×2 (09:04→21:32)
[2017-08-19] MEDS: FUROSEMIDE 20 MG TAB PO SCH (09:05)
[2017-08-19] MEDS: GUAIFENESIN SUGAR FREE 100 MG/5 ML UDC PO PRN (09:06)
[2017-08-19] MEDS: CEROVITE ADV FORMULA TAB PO SCH (09:06)
[2017-08-19] MEDS: ROPINIROLE HCL 1 MG TAB PO PRN (09:14)
--- NOTE | 2017-08-19 10:05 | Procedure Note ---
Procedure Note Date of Service Aug 19, 2017. Procedure Note Procedures:Right sided Thoracentesis Consent: obtained via the patient and placed into the chart Pre-Procedural Dx: Right pleural effusion Post-Procedural Dx:Right pleural effusion Analgesia: 8cc of 1% Liquid Lidocaine Procedure: The patient was placed in an upright position and thoracic US was used to select a spot for the procedure. A spot along the posterior axillary line was marked in the 7th intercostal space. The patient was then draped and prepped in a sterile fashion. A modified Seldinger technique was then used for catheter placement. Flowing this approximately 700 cc of straw colored pleural fluid was removed. The patient was then cleaned and placed at a 60 degree angle in the bed were the US was used to evaluate for possible pneumothorax. The US showed good lung sliding and starry night sign. EBL: <5 cc Complications: none
[2017-08-19 10:51] LABS: PLEURAL FLUID TOTAL PROTEIN 1.5 g/dl
--- NOTE | 2017-08-19 10:59 | DIAGNOSTIC IMAGING REPORT ---
CHEST ONE VIEW PORTABLE HISTORY: 86 years-old Female S/P Thoracentesis COMPARISON: CTA of the chest 08/16/2017 TECHNIQUE: Portable AP view of the chest FINDINGS: Cardiac silhouette is mildly enlarged. Prosthetic aortic valve. Atherosclerosis of the aorta. Decreased size of right pleural effusion. No postprocedural pneumothorax. Persistent left pleural effusion with left basilar consolidation. 1.2 cm pulmonary nodule of the right midlung redemonstrated. Minimal subsegmental opacities of the lateral right lung base suggest atelectasis. Bones appear grossly intact. IMPRESSION: No evidence of postprocedural pneumothorax. The above report was generated using voice recognition software. It may contain grammatical, syntax or spelling errors. Electronically signed by: Ramos Harrell M.D. 08/19/2017 10:58 AM Dictated Date/Time: 08/19/2017 10:56 AM
[2017-08-19 11:23] LABS: PLEURAL FLUID APPEARANCE CLEAR; PLEURAL FLUID COLOR YELLOW; PLEURAL FLUID SOURCE RIGHT LUNG; PLEURAL FLUID WBC (A) 636 /uL
--- NOTE | 2017-08-19 11:46 | Hospitalist Progress Note ---
Hospitalist Progress Note Date of Service Aug 19, 2017. (Katerine Rene ., PA-C) Subjective Pt evaluation today including: conversation w/ patient, conversation w/ family (daughter at bedside ), physical exam, lab review, review of studies, review of inpatient medication list Voiding: no voiding problems Patient sitting up at side of bed eating breakfast. Patient in much better spirits today due to feeling improved. s/p R thoracentesis by Dr. Angelo this AM- feels significant improvement in breathing. Feels like she can finally take a deep breath. Per patient, planning to do L side later today or tomorrow. Eating and drinking OK. Encouraged patient to work with PT. States she has been walking the halls w/ her daughter w/out significant difficulty. Patient denies any fever, chills, sweats, lightheadedness, dizziness, vision changes, CP, palpitations, edema, SOB, wheezing, cough, abdominal pain, nausea, vomiting, diarrhea, urinary symptoms, melena, numbness/tingling, weakness, muscle/joint pain, anxiety/depression, active bleeding, or new skin discoloration/changes. (Katerine Rene ., PA-C) Medications Current Inpatient Medications Medications (Trade) Dose Ordered Sig/David Route Start Time Stop Time Status Last Admin Dose Admin Heparin Sodium (Porcine) (Heparin Sq 5000 Unit/0.5ml) 5,000 unit Q12 SQ 08/15/17 21:00 09/14/17 20:59 08/18/17 21:15 5,000 UNIT Acetaminophen (Tylenol Tab) 650 mg Q4H PRN PO 08/15/17 09:30 09/14/17 09:29 Al Hydrox/Mg Hydrox/Simethicone (Maalox Max Susp) 15 ml Q4H PRN PO 08/15/17 09:30 09/14/17 09:29 Magnesium Hydroxide (Milk Of Magnesia Susp) 30 ml Q12H PRN PO 08/15/17 09:30 09/14/17 09:29 Ondansetron HCl (Zofran Inj) 4 mg Q6H PRN IV 08/15/17 09:30 09/14/17 09:29 Nitroglycerin (Nitrostat Tab) 0.4 mg UD PRN SL 08/15/17 09:30 1/13/18 09:29 Morphine Sulfate (MoRPHine SULFATE INJ) 2 mg Q30M PRN IV 08/15/17 09:30 08/29/17 09:29 Polyethylene (Miralax Powder Packet) 17 gm DAILY PRN PO 08/15/17 09:30 09/14/17 09:29 Albuterol/ Ipratropium (Duoneb) 3 ml QIDR INH 08/15/17 12:00 09/14/17 11:59 08/19/17 07:19 3 ML Amlodipine Besylate (Norvasc Tab) 5 mg HS PO 08/15/17 21:00 09/14/17 20:59 08/18/17 21:08 5 MG Aspirin (Ecotrin Tab) 81 mg HS PO 08/15/17 21:00 09/14/17 20:59 08/18/17 21:07 81 MG Atorvastatin Calcium (Lipitor Tab) 20 mg HS PO 08/15/17 21:00 09/14/17 20:59 08/18/17 21:07 20 MG Cyanocobalamin (Vitamin B-12 Tab) 2,000 mcg DAILY PO 08/16/17 09:00 09/15/17 08:59 08/19/17 09:02 2,000 MCG Diphenoxylate HCl/ Atropine (Lomotil Tab) 1 tab QID PO 08/15/17 13:00 09/14/17 12:59 08/19/17 09:05 1 TAB Furosemide (Lasix Tab) 20 mg DAILY PO 08/16/17 09:00 09/15/17 08:59 08/19/17 09:05 20 MG Insulin Glargine (Lantus Solostar Pen) 10 units QPM SQ 08/15/17 21:00 09/14/17 20:59 08/18/17 21:14 10 UNITS Insulin Glargine (Lantus Solostar Pen) 12 units QAM SQ 08/16/17 09:00 09/15/17 08:59 08/19/17 09:04 12 UNITS Levothyroxine Sodium (Synthroid Tab) 75 mcg DAILYBB PO 08/16/17 06:30 09/15/17 06:29 08/19/17 06:28 75 MCG Multivitamins/ Minerals (Multivitamin W/ Minerals Tab) 1 tab DAILY PO 08/16/17 09:00 09/15/17 08:59 08/19/17 09:06 1 TAB Ropinirole HCl (Requip Tab) 1 mg QPM PO 08/15/17 21:00 09/14/17 20:59 08/18/17 21:08 1 MG Enalapril Maleate (Vasotec Tab) 20 mg DAILY PO 08/16/17 09:00 09/15/17 08:59 08/19/17 09:01 20 MG Miscellaneous Information (Order Awaiting Action) 1 ea QS N/A 08/15/17 16:00 09/14/17 15:59 Miscellaneous Information (Order Awaiting Action) 1 ea QS N/A 08/15/17 16:00 09/14/17 15:59 Insulin Aspart (novoLOG ASPART) SLIDING SCALE G... ACHS SC 08/15/17 11:00 09/14/17 10:59 08/18/17 21:14 2 UNITS Levofloxacin 750 mg/Prmx 150 ml @ 100 mls/hr Q48H IV 08/17/17 09:00 08/24/17 08:59 08/19/17 09:00 100 MLS/HR Levofloxacin (Consult) 1 ea UD PRN N/A 08/15/17 11:45 09/14/17 11:44 Ropinirole HCl (Requip Tab) 0.5 mg DAILY PRN PO 08/15/17 13:30 09/14/17 13:29 08/19/17 09:14 0.5 MG Guaifenesin (Robitussin Sugar Free Syrup) 100 mg Q6H PRN PO 08/16/17 00:30 09/15/17 00:29 08/19/17 09:06 100 MG Ioversol (Optiray 320) 100 ml UD PRN IV 08/16/17 10:15 08/20/17 10:14 Lorazepam (Ativan Tab) 0.5 mg Q6H PRN PO 08/18/17 09:00 09/17/17 08:59 08/18/17 22:36 0.5 MG Prednisone (PredniSONE TAB) 20 mg QAM PO 08/19/17 09:00 09/18/17 08:59 08/19/17 09:05 20 MG (Murarik, Katerine ., PA-C) Objective Vital Signs Date Time Temp Pulse Resp B/P (MAP) Pulse Ox O2 Delivery O2 Flow Rate FiO2 08/19/17 08:00 92 Room Air 08/19/17 07:22 36.6 96 18 135/71 (92) 92 Room Air 08/19/17 07:19 96 16 92 Room Air 08/19/17 05:05 36.8 102 20 143/63 (89) 93 Room Air 08/19/17 04:00 90 Room Air 08/19/17 00:00 90 Room Air 08/19/17 00:00 90 Room Air 08/18/17 23:21 36.5 87 20 132/58 (82) 93 Room Air 08/18/17 20:42 36.5 93 20 144/68 (93) 92 Room Air 08/18/17 20:36 84 16 90 Room Air 08/18/17 20:00 Room Air 08/18/17 16:00 Room Air 08/18/17 15:23 71 16 91 Room Air 08/18/17 15:06 36.3 95 18 150/71 (97) 93 Room Air 08/18/17 12:30 Room Air 08/18/17 11:12 90 16 93 Room Air (Katerine Rene PA-C) Physical Exam General Appearance: no apparent distress Eyes: normal inspection, PERRL ENT: hearing grossly normal Neck: supple Respiratory/Chest: no respiratory distress, no accessory muscle use, + decreased breath sounds (L lung base ) Cardiovascular: regular rate, rhythm, + systolic murmur Abdomen: normal bowel sounds, non tender, soft Extremities: no pedal edema, no calf tenderness Neurologic/Psychiatric: alert, normal mood/affect, oriented x 3 Skin: normal color, warm/dry, no rash (Katerine Rene PA-C) Laboratory Results Last 24 Hours Test 08/18/17 11:10 08/18/17 16:29 08/18/17 20:26 08/19/17 05:24 Bedside Glucose 132 mg/dl 199 mg/dl 182 mg/dl Sodium Level 133 mmol/L Potassium Level 3.9 mmol/L Chloride Level 102 mmol/L Carbon Dioxide Level 23 mmol/L Anion Gap 8.0 mmol/L Blood Urea Nitrogen 46 mg/dl Creatinine 1.33 mg/dl Est Creatinine Clear Calc Drug Dose 24.5 ml/min Estimated GFR () 42.1 Estimated GFR (Non- 36.4 BUN/Creatinine Ratio 34.2 Random Glucose 82 mg/dl Calcium Level 8.7 mg/dl Magnesium Level 2.3 mg/dl Test 08/19/17 07:12 08/19/17 10:08 08/19/17 10:26 Bedside Glucose 91 mg/dl Pleural Fluid pH 7.44 Pleural Fluid Total Protein 1.5 g/dl Pleural Fluid Albumin 1.0 g/dl Pleural Fluid LDH 78 IU Pleural Fluid Glucose 102 mg/dl Pleural Fluid Amylase 12 U/L Total Bilirubin 0.4 mg/dl Lactate Dehydrogenase 309 U/L Total Protein 6.9 gm/dl Albumin 3.4 gm/dl (Katerine Rene, BARBYC) Assessment and Plan Patient is a pleasant 86 y/o female, with PMHx of chronic diastolic CHF, CKD stage III, T2DM, HTN, HLD, hypothyroidism, and RLS, who presented to the ED because of worsening shortness of breath and fatigue x1 day. Acute respiratory failure w/ hypoxia, likely secondary to PNA: - Admit to tele for cardiac monitoring - Trend cardiac enzymes- chronically elevated around- 0.15-0.2- peaked at 0.178 and trended down - EKG w/out acute ischemic changes; follow EKG QAM and PRN for chest pain - O2 protocol, wean as tolerated- does NOT have O2 supplement at home- now on RA - IV Levaquin- started on 08/15 - DuoNeb QID and PRN for SOB/wheezing, flutter valve, incentive spirometer - Robitussin 100 mg q6 hrs PRN for cough - BCx NGTD; MRSA swab negative; sputum cultures NG; Legionella ag pending - Start IV Solu Medrol 60 mg BID- transitioned to PO Prednisone 20 mg today -- Leukocytosis, likely secondary to steroids- follow CBC- no s/s of worsening/new infection - CTA w/out PE, evidence of pulmonary edema and moderate bilateral pleural effusions- IV Lasix 40 mg x1 Bilateral pleural effusions: - Pulmonary consulted- appreciate recommendations -- s/p R thoracentesis- drained 700 cc, pleural fluids studies pending R middle lobe lesion: f/u in 3 months recommended Anxiety: IV Ativan 0.5 mg PRN for anxiety/SOB Chronic diastolic CHF: - Treated w/ IV Lasix 40 mg x2; continue Lasix 20 mg daily - Monitor I&Os and daily weights- baseline weight ~57kg: negative ~1.4L COLTEN on CKD stage III- baseline Cr. around 0.9-1.0: - Cr. 1.33 from 1.39 - Follow PRP - Renally dose medications T2DM: - Continue Lantus 12 u QAM and 10 u QPM - BSG ACHS and ISS HTN: Continue Norvasc 5 mg daily, Lotensin 20 mg daily HLD: Lipitor 20 mg HS Hypothyroidism- TSH WNL: Continue Synthroid 75 mcg daily RLS: Continue Requip 1 mg HS and 0.5 mg daily PRN DVT prophylaxis: Heparin SQ BID Code Status: LEVEL I, FULL Dispo: Discharge uncertain at this time- PT/OT and CM consulted (Katerine Rene, MIRANDA) Reviewed: Pt Seen/Exam by Me (Melita Adhikari MD) History Physician Integrated Program Teacher Supervision Note: I interviewed and examined the patient. Discussed with AJ Rene and agree with findings and plan as documented in the note. Any exceptions or clarifications are listed here: Pt feeling significantly improved since receiving bilateral thoracenteses today. Feels like she can finally breathe and POx improved. No more coughing Vitals reviewed NAD, AAOx3 RRR, 2/6 [place] at [facility] Lungs with only slightly diminished BS at bases, otherwise very faint wheezes in apices, much improved from yesterday Ext no edema Patient is a pleasant 86 y/o female, with PMHx of chronic diastolic CHF, Aortic valve replacement, mild AI, CKD stage III, T2DM, HTN, HLD, hypothyroidism, and RLS, who presented to the ED because of worsening shortness of breath and fatigue x1 day. Pt recently discharged on 08/13 as well as a few weeks before that for similar symptoms and was treated as CHF exacerbation and acute bronchitis. She was thought to have URI and was given a course of azithromycin in addition to albuterol inhaler. Pt stated she initially felt well but then stated worsening shortness of breath with exertion despite albuterol use. Found to have moderate bilateral pleural effusions, and possible superimposed PNA on CT Chest. Acute respiratory failure w/ hypoxia secondary to PNA vs acute on chronic CHF/ Bilateral pleural effusions/RML lesion on CT--> with some wheezing, remote h/o social smoking, did not improve with course of azithro prior to admission. Now improving slightly on Levaquin. Now MUCH IMPROVED s/p bilateral thoracenteses on 08/19 (700 mL on rt, 600 mL on left)-await/f/u pleural fluid studies -finish out course of Levaquin for PNA -taper steroids down over 1 week -repeat CT today with 2 cm RML nodule, needs either PET/CT, tissue sampling, or repeat CT in 3 months--> f/u Dr. Ricardo as outpt Acute on chronic diastolic CHF/AVR and Mild AI/suspected CAD-ECHO completed , preserved EF 60-65%, noted grade II diastolic dysfunction, mild AI. Has lost some weight and diuresed -continue daily po lasix -follow renal function -Otherwise plan as above -Dispo-likely to home tomorrow Documented By: Melita Adhikari (Melita Adhikari MD)
--- NOTE | 2017-08-19 13:49 | Pulmonology Progress Note ---
Pulmonary Progress Note Date of Service Aug 19, 2017. Attending Dr. Angelo Subjective Patient seen and examined this morning. She has no complaints. Still feeling short of breath. Consent obtained for right and left thoracentesis. Objective Vital signs reviewed. MAXIMUM TEMPERATURE 36.8, blood pressure 126/61 to 143/ 63, pulse 80-102, respiratory rate 16-20, pulse oximetry 90-96% on room air. General: Awake alert oriented 3, no use of accessory muscles of respiration. CVS: S1-S2, regular rate and rhythm Lungs: good entry bilaterally however diminished at bases bilaterally Abdomen: Soft, nontender, nondistended, bowel sounds positive Extremities: No edema, no cyanosis, no clubbing Labs reviewed. Imaging reviewed. Medications reviewed. Assessment & Plan Acute on chronic respiratory insufficiency with hypoxemia Chronic diastolic heart failure, grade 2 dysfunction Chronic kidney disease Bilateral pleural effusion Right middle lobe pulmonary nodule Patient doing well from a respiratory standpoint. Daughter at bedside. She has signed consent for both ultrasound-guided left and right thoracentesis. Recommend CT chest without contrast post thoracentesis to evaluate right middle lobe nodule. Appropriate studies will be sent for Gram stain, culture, LDH, albumin as well as cytology. Continue supplemental oxygen when necessary. Data Medications: Current Inpatient Medications Medications (Trade) Dose Ordered Sig/David Route Start Time Stop Time Status Last Admin Dose Admin Heparin Sodium (Porcine) (Heparin Sq 5000 Unit/0.5ml) 5,000 unit Q12 SQ 08/15/17 21:00 09/14/17 20:59 08/18/17 21:15 5,000 UNIT Acetaminophen (Tylenol Tab) 650 mg Q4H PRN PO 08/15/17 09:30 09/14/17 09:29 Al Hydrox/Mg Hydrox/Simethicone (Maalox Max Susp) 15 ml Q4H PRN PO 08/15/17 09:30 09/14/17 09:29 Magnesium Hydroxide (Milk Of Magnesia Susp) 30 ml Q12H PRN PO 08/15/17 09:30 09/14/17 09:29 Ondansetron HCl (Zofran Inj) 4 mg Q6H PRN IV 08/15/17 09:30 09/14/17 09:29 Nitroglycerin (Nitrostat Tab) 0.4 mg UD PRN SL 08/15/17 09:30 09/14/17 09:29 Morphine Sulfate (MoRPHine SULFATE INJ) 2 mg Q30M PRN IV 08/15/17 09:30 08/29/17 09:29 Polyethylene (Miralax Powder Packet) 17 gm DAILY PRN PO 08/15/17 09:30 09/14/17 09:29 Albuterol/ Ipratropium (Duoneb) 3 ml QIDR INH 08/15/17 12:00 09/14/17 11:59 08/19/17 11:18 3 ML Amlodipine Besylate (Norvasc Tab) 5 mg HS PO 08/15/17 21:00 09/14/17 20:59 08/18/17 21:08 5 MG Aspirin (Ecotrin Tab) 81 mg HS PO 08/15/17 21:00 09/14/17 20:59 08/18/17 21:07 81 MG Atorvastatin Calcium (Lipitor Tab) 20 mg HS PO 08/15/17 21:00 09/14/17 20:59 08/18/17 21:07 20 MG Cyanocobalamin (Vitamin B-12 Tab) 2,000 mcg DAILY PO 08/16/17 09:00 09/15/17 08:59 08/19/17 09:02 2,000 MCG Diphenoxylate HCl/ Atropine (Lomotil Tab) 1 tab QID PO 08/15/17 13:00 09/14/17 12:59 08/19/17 09:05 1 TAB Furosemide (Lasix Tab) 20 mg DAILY PO 08/16/17 09:00 09/15/17 08:59 08/19/17 09:05 20 MG Insulin Glargine (Lantus Solostar Pen) 10 units QPM SQ 08/15/17 21:00 09/14/17 20:59 08/18/17 21:14 10 UNITS Insulin Glargine (Lantus Solostar Pen) 12 units QAM SQ 08/16/17 09:00 09/15/17 08:59 08/19/17 09:04 12 UNITS Levothyroxine Sodium (Synthroid Tab) 75 mcg DAILYBB PO 08/16/17 06:30 09/15/17 06:29 08/19/17 06:28 75 MCG Multivitamins/ Minerals (Multivitamin W/ Minerals Tab) 1 tab DAILY PO 08/16/17 09:00 09/15/17 08:59 08/19/17 09:06 1 TAB Ropinirole HCl (Requip Tab) 1 mg QPM PO 08/15/17 21:00 09/14/17 20:59 08/18/17 21:08 1 MG Enalapril Maleate (Vasotec Tab) 20 mg DAILY PO 08/16/17 09:00 09/15/17 08:59 08/19/17 09:01 20 MG Miscellaneous Information (Order Awaiting Action) 1 ea QS N/A 08/15/17 16:00 09/14/17 15:59 Miscellaneous Information (Order Awaiting Action) 1 ea QS N/A 08/15/17 16:00 09/14/17 15:59 Insulin Aspart (novoLOG ASPART) SLIDING SCALE G... ACHS SC 08/15/17 11:00 09/14/17 10:59 08/19/17 11:38 8 UNITS Levofloxacin (Consult) 1 ea UD PRN N/A 08/15/17 11:45 09/14/17 11:44 Ropinirole HCl (Requip Tab) 0.5 mg DAILY PRN PO 08/15/17 13:30 09/14/17 13:29 08/19/17 09:14 0.5 MG Guaifenesin (Robitussin Sugar Free Syrup) 100 mg Q6H PRN PO 08/16/17 00:30 09/15/17 00:29 08/19/17 09:06 100 MG Ioversol (Optiray 320) 100 ml UD PRN IV 08/16/17 10:15 08/20/17 10:14 Lorazepam (Ativan Tab) 0.5 mg Q6H PRN PO 08/18/17 09:00 09/17/17 08:59 08/18/17 22:36 0.5 MG Prednisone (PredniSONE TAB) 20 mg QAM PO 08/19/17 09:00 09/18/17 08:59 08/19/17 09:05 20 MG Levofloxacin (Levaquin Tab) 750 mg Q2D@1100 PO 08/21/17 11:00 08/24/17 08:59 I & O: 24-Hour Column 08/20/17 08:00 Intake Total 620 ml Output Total 550 ml Balance 70 ml Vital Signs: Date Time Temp Pulse Resp B/P (MAP) Pulse Ox O2 Delivery O2 Flow Rate FiO2 08/19/17 11:18 80 16 96 Room Air 08/19/17 11:16 85 18 126/61 (82) 96 Room Air 08/19/17 08:00 92 Room Air 08/19/17 07:22 36.6 96 18 135/71 (92) 92 Room Air 08/19/17 07:19 96 16 92 Room Air 08/19/17 05:05 36.8 102 20 143/63 (89) 93 Room Air 08/19/17 04:00 90 Room Air 08/19/17 00:00 90 Room Air 08/19/17 00:00 90 Room Air 08/18/17 23:21 36.5 87 20 132/58 (82) 93 Room Air 08/18/17 20:42 36.5 93 20 144/68 (93) 92 Room Air 08/18/17 20:36 84 16 90 Room Air 08/18/17 20:00 Room Air 08/18/17 16:00 Room Air 08/18/17 15:23 71 16 91 Room Air 08/18/17 15:06 36.3 95 18 150/71 (97) 93 Room Air Laboratory Results: Last 24 Hours Test 08/18/17 16:29 08/18/17 20:26 08/19/17 05:24 08/19/17 07:12 Bedside Glucose 199 mg/dl 182 mg/dl 91 mg/dl Sodium Level 133 mmol/L Potassium Level 3.9 mmol/L Chloride Level 102 mmol/L Carbon Dioxide Level 23 mmol/L Anion Gap 8.0 mmol/L Blood Urea Nitrogen 46 mg/dl Creatinine 1.33 mg/dl Est Creatinine Clear Calc Drug Dose 24.5 ml/min Estimated GFR () 42.1 Estimated GFR (Non- 36.4 BUN/Creatinine Ratio 34.2 Random Glucose 82 mg/dl Calcium Level 8.7 mg/dl Magnesium Level 2.3 mg/dl Test 08/19/17 10:08 08/19/17 10:26 08/19/17 11:22 Pleural Fluid Source RIGHT LUNG Pleural Fluid Color YELLOW Pleural Fluid Appearance CLEAR Pleural Fluid WBC 636 /uL Pleural Fluid RBC < 3000 /uL Pleural Fluid pH 7.44 Pleural Fluid Polynuclear WBCs % 6.0 % Pleural Fluid Mononuclear WBCs % 94.0 % Pleural Fluid Total Protein 1.5 g/dl Pleural Fluid Albumin 1.0 g/dl Pleural Fluid LDH 78 IU Pleural Fluid Glucose 102 mg/dl Pleural Fluid Amylase 12 U/L Total Bilirubin 0.4 mg/dl Lactate Dehydrogenase 309 U/L Total Protein 6.9 gm/dl Albumin 3.4 gm/dl Bedside Glucose 246 mg/dl
--- NOTE | 2017-08-19 14:39 | Procedure Note ---
Procedure Note Date of Service Aug 19, 2017. Procedure Note Procedures: Left sided Thoracentesis Consent: obtained via the patient and placed into the chart Pre-Procedural Dx: left pleural effusion Post-Procedural Dx: left pleural effusion Analgesia: 8cc of 1% Liquid Lidocaine Procedure: The patient was placed in an upright position and thoracic US was used to select a spot for the procedure. A spot along the posterior axillary line was marked in the 7th intercostal space. The patient was then draped and prepped in a sterile fashion. A modified Seldinger technique was then used for catheter placement. Flowing this approximately 600 cc of straw-colored pleural fluid was removed. The patient was then cleaned and placed at a 60 degree angle in the bed were the US was used to evaluate for possible pneumothorax. The US showed good lung sliding and starry night sign. EBL: <5 cc Complications: none
[2017-08-19 15:49] LABS: PLEURAL FLUID TOTAL PROTEIN 1.8 g/dl
[2017-08-19 15:57] LABS: PLEURAL FLUID GLUCOSE 139 mg/dl
--- NOTE | 2017-08-19 16:18 | DIAGNOSTIC IMAGING REPORT ---
(CHEST) THORAX WITHOUT CLINICAL HISTORY: 86 years-old Female presenting with evaluate nodule post thoracentesis. TECHNIQUE: Multidetector CT imaging of the chest was performed without the use of intravenous contrast. IV contrast: None. A dose lowering technique was used consistent with the principles of ALARA (as low as reasonably achievable). COMPARISON: 08/16/2017. CT DOSE (mGy.cm): The estimated cumulative dose is 215.35 mGy.cm. FINDINGS: Crepe Box Tender topogram: Unremarkable. On soft tissue windows, enlarged thyroid gland. No axillary, supraclavicular, or mediastinal lymphadenopathy. Evaluation of the chapin limited without intravenous contrast. Atherosclerosis of the aorta. Prostatic aortic valve. Mitral annular and coronary artery calcification. Heart top normal in size. Small bilateral pleural effusions, decreased from prior. No pneumothorax. No pericardial effusion. Upper abdomen normal. On lung windows, dependent consolidation volume loss consistent with passive atelectasis. Smooth interlobular septal thickening. Lobular solid mass measuring approximately 2 cm in the right middle lobe with coarse central calcification. No macroscopic fat is definitively visualized on this exam. Large airways patent. On bone windows, degenerative changes of the spine. Degenerative changes of the right glenohumeral joint. This IMPRESSION: 1. Decreased bilateral pleural effusions, now small in volume. No pneumothorax. 2. Smooth interlobular septal thickening suggests volume overload. 3. 2 cm soft tissue nodule in the right middle lobe. This is indeterminate. Macroscopic fat is not definitively apparent on the current exam. Differential considerations do include hamartoma. Follow-up per Humberto Society 2017 recommendations below. Please refer to below summary of Fleischner Society 2017 recommendations for follow-up of incidental CT nodules (H Scotty et al. Guidelines for management of incidental pulmonary nodules detected on CT images: From the Fleischner Society 2017. Radiology 2017; 284: 228-243.) SOLID NODULES Single nodule; size < 6 mm * Low risk patients: No routine follow-up * High risk patients: Optional CT at 12 months Single nodule; size 6-8 mm * Low risk patients: CT at 6-12 months, then consider CT at 18-24 months * High risk patients: CT at 6-12 months, then at 18-24 months Single nodule; size > 8 mm * Either low or high risk patients: Considered CT at 3 months, PET/CT, or tissue sampling Multiple nodules; size < 6 mm * Low risk patients: No routine follow up * High risk patients: Optional CT at 12 months Multiple nodules; size 6-8 mm * Low risk patients: CT at 3-6 months, then consider CT at 18-24 months * High risk patients: CT at 3-6 months, then at 18-24 months Multiple nodules; size > 8 mm * Low risk patients: CT at 3-6 months, then consider at 18-24 months * High risk patients: CT at 3-6 months, then at 18-24 months Note: These guidelines apply to incidental nodules. These guidelines do not apply to patients younger than 35 years, immunocompromised patients, or patients with cancer. * Low risk patients: Minimal or absent history of smoking and/or other known risk factors * High risk patients: History of smoking, exposure to other carcinogens, emphysema, fibrosis, upper lobe location, family history of lung cancer, etc. * If a nodule up to 8 mm is partly solid or is ground glass, further follow-up is required after 24 months to exclude possible slow growing adenocarcinoma. SUBSOLID NODULES Single ground-glass nodule * Nodule size < 6 mm: No routine follow-up * Nodule size > or = 6 mm: CT at 6-12 months to confirm persistence, then CT every 2 years until 5 years Single part-solid nodule * Nodule size < 6 mm: No routine follow-up * Nodules size > or = 6 mm: CT at 3-6 months to confirm persistence. If unchanged and solid component remains < 6 mm, annual CT should be performed for 5 years Multiple nodules * Nodule size < 6 mm: CT at 3-6 months. If stable, consider CT at 2 and 4 years. * Nodules size > or = 6 mm: CT at 3-6 months. Subsequent management based on the most suspicious nodule(s) Electronically signed by: Earle Aguilar M.D. 08/19/2017 4:16 PM Dictated Date/Time: 08/19/2017 4:09 PM
[2017-08-19] MEDS: ASPIRIN 81 MG ECTAB PO SCH (21:28)
[2017-08-19] MEDS: ROPINIROLE HCL 1 MG TAB PO SCH (21:28)
[2017-08-19] MEDS: AMLODIPINE BESYLATE 5 MG TAB PO SCH (21:28)
[2017-08-19] MEDS: ATORVASTATIN 20 MG TAB PO SCH (21:28)
[2017-08-19] MEDS: LORAZEPAM 0.5 MG TAB PO PRN (22:40)
[2017-08-20] VITALS: O2SAT 90
[2017-08-20 04:00] VITALS: BP 145/74; PULSE 83; TEMP 36.4; O2SAT 90; O2SAT 93
[2017-08-20] MEDS: LEVOTHYROXINE 75 MCG TAB PO SCH (05:46)
[2017-08-20 06:05] LABS: HEMATOCRIT 34.7 % (37-47); MEAN CELL VOLUME 91.8 fL (80-100); MEAN CORPUSCULAR HEMOGLOBIN 30.7 pg (25-34); MEAN CORPUSCULAR HGB CONC 33.4 g/dl (32-36); MEAN PLATELET VOLUME 10.1 fL (7.4-10.4); PLATELET COUNT 329 K/uL (130-400); RED BLOOD COUNT 3.78 M/uL (4.2-5.4); WHITE BLOOD COUNT 10.38 K/uL (4.8-10.8)
[2017-08-20 06:28] LABS: BUN/CREATININE RATIO 27.3 (10-20); CALCIUM 8.3 mg/dl (8.5-10.1); CREATININE 1.18 mg/dl (0.60-1.20); POTASSIUM 4.3 mmol/L (3.5-5.1)
[2017-08-20] MEDS: ALBUT/IPRATROP 3MG/0.5MG NEB 3 ML VIAL INH SCH ×2 (07:41→11:39)
[2017-08-20] MEDS: FUROSEMIDE 20 MG TAB PO SCH (08:38)
[2017-08-20] MEDS: DIPHENOXYLATE/ATROPINE 2.5/0.025MG TAB PO SCH ×2 (08:39→13:49)
[2017-08-20] MEDS: CEROVITE ADV FORMULA TAB PO SCH (08:39)
[2017-08-20] MEDS: CYANOCOBALAMIN 500 MCG TAB (VIT B-12) PO SCH (08:40)
[2017-08-20] MEDS: ENALAPRIL MALEATE 10 MG TAB PO SCH (08:40)
[2017-08-20] MEDS: SYSTANE~ORDER AWAITING ACTION SCH (08:50)
[2017-08-20] MEDS: INSULIN GLARGINE SOLOSTAR 100 UNITS/ML 3 ML PEN SQ SCH (08:52)
[2017-08-20] MEDS: HEPARIN SOD 5000 UNIT/0.5 ML CARP SQ SCH (08:54)
[2017-08-20] MEDS: INSULIN ASPART 100 UNITS/ML 3 ML PEN SC SCH ×2 (08:54→12:25)
--- NOTE | 2017-08-20 10:21 | Pulmonology Progress Note ---
Pulmonary Progress Note Date of Service Aug 20, 2017. Attending Dr. Angelo Subjective Patient seen and examined this morning. She is feeling much better since having thoracentesis done yesterday. She denies any chest pain, shortness of breath, cough or dyspnea on exertion. She slept well overnight. Objective Vital signs reviewed. MAXIMUM TEMPERATURE 36.4, blood pressure 145/74, pulse 83, respiratory rate 20, pulse oximetry 90-93% on room air. General: Awake alert oriented 3, no use of accessory muscles of respiration. CVS: S1-S2, regular rate and rhythm Lungs: good entry bilaterally however diminished at bases bilaterally Abdomen: Soft, nontender, nondistended, bowel sounds positive Extremities: No edema, no cyanosis, no clubbing Labs reviewed. Imaging reviewed. Medications reviewed. Sputum culture--scant normal lacey Urine legionella--pending Left pleural fluid consistent with transudate. Right pleural fluid consistent with transudate. Left pleural fluid bacteria culture--pending Left pleural fluid AFB--pending Right pleural fluid bacteria culture--pending Right pleural fluid AFB--pending Left pleural cytology--pending Right pleural cytology--pending (CHEST) THORAX WITHOUT CLINICAL HISTORY: 86 years-old Female presenting with evaluate nodule post thoracentesis. TECHNIQUE: Multidetector CT imaging of the chest was performed without the use of intravenous contrast. IV contrast: None. A dose lowering technique was used consistent with the principles of ALARA (as low as reasonably achievable). COMPARISON: 08/16/2017. CT DOSE (mGy.cm): The estimated cumulative dose is 215.35 mGy.cm. FINDINGS: Quill Winder topogram: Unremarkable. On soft tissue windows, enlarged thyroid gland. No axillary, supraclavicular, or mediastinal lymphadenopathy. Evaluation of the chapin limited without intravenous contrast. Atherosclerosis of the aorta. Prostatic aortic valve. Mitral annular and coronary artery calcification. Heart top normal in size. Small bilateral pleural effusions, decreased from prior. No pneumothorax. No pericardial effusion. Upper abdomen normal. On lung windows, dependent consolidation volume loss consistent with passive atelectasis. Smooth interlobular septal thickening. Lobular solid mass measuring approximately 2 cm in the right middle lobe with coarse central calcification. No macroscopic fat is definitively visualized on this exam. Large airways patent. On bone windows, degenerative changes of the spine. Degenerative changes of the right glenohumeral joint. This IMPRESSION: 1. Decreased bilateral pleural effusions, now small in volume. No pneumothorax. 2. Smooth interlobular septal thickening suggests volume overload. 3. 2 cm soft tissue nodule in the right middle lobe. This is indeterminate. Macroscopic fat is not definitively apparent on the current exam. Differential considerations do include hamartoma. Assessment & Plan Acute on chronic respiratory insufficiency with hypoxemia Chronic diastolic heart failure, grade 2 dysfunction Chronic kidney disease Bilateral pleural effusion Right middle lobe pulmonary nodule Mrs. Giraldo is doing well from a respiratory standpoint. She is status post bilateral thoracentesis yesterday. Fluids are consistent with a transudative process, likely due to fluid overload from diastolic dysfunction. CT chest shows residual pleural fluid on the left and intraseptal thickening bilaterally consistent with CHF. Right middle lobe nodule remains about 2cm with central calcification. This is likely benign. However, she should have interval follow up in 3 months with the pulmonary office. Recommend and discontinuing antibiotics at this time as CT chest shows no signs of infection. I would taper her off of steroids as well. Continue with nebulizers as needed. Continue supplemental oxygen when necessary. Recommend PT/OT. I will sign off of case today. She should follow up in the pulmonary office with Dr. Ricardo, 3 months after hospital discharge. Please contact me if you have any other questions or concerns. Data Medications: Current Inpatient Medications Medications (Trade) Dose Ordered Sig/David Route Start Time Stop Time Status Last Admin Dose Admin Heparin Sodium (Porcine) (Heparin Sq 5000 Unit/0.5ml) 5,000 unit Q12 SQ 08/15/17 21:00 09/14/17 20:59 08/20/17 08:54 5,000 UNIT Acetaminophen (Tylenol Tab) 650 mg Q4H PRN PO 08/15/17 09:30 09/14/17 09:29 Al Hydrox/Mg Hydrox/Simethicone (Maalox Max Susp) 15 ml Q4H PRN PO 08/15/17 09:30 09/14/17 09:29 Magnesium Hydroxide (Milk Of Magnesia Susp) 30 ml Q12H PRN PO 08/15/17 09:30 09/14/17 09:29 Ondansetron HCl (Zofran Inj) 4 mg Q6H PRN IV 08/15/17 09:30 09/14/17 09:29 Nitroglycerin (Nitrostat Tab) 0.4 mg UD PRN SL 08/15/17 09:30 09/14/17 09:29 Morphine Sulfate (MoRPHine SULFATE INJ) 2 mg Q30M PRN IV 08/15/17 09:30 08/29/17 09:29 Polyethylene (Miralax Powder Packet) 17 gm DAILY PRN PO 08/15/17 09:30 09/14/17 09:29 Albuterol/ Ipratropium (Duoneb) 3 ml QIDR INH 08/15/17 12:00 09/14/17 11:59 08/20/17 07:41 3 ML Amlodipine Besylate (Norvasc Tab) 5 mg HS PO 08/15/17 21:00 09/14/17 20:59 08/19/17 21:28 5 MG Aspirin (Ecotrin Tab) 81 mg HS PO 08/15/17 21:00 09/14/17 20:59 08/19/17 21:28 81 MG Atorvastatin Calcium (Lipitor Tab) 20 mg HS PO 08/15/17 21:00 09/14/17 20:59 08/19/17 21:28 20 MG Cyanocobalamin (Vitamin B-12 Tab) 2,000 mcg DAILY PO 08/16/17 09:00 09/15/17 08:59 08/20/17 08:40 2,000 MCG Diphenoxylate HCl/ Atropine (Lomotil Tab) 1 tab QID PO 08/15/17 13:00 09/14/17 12:59 08/20/17 08:39 1 TAB Furosemide (Lasix Tab) 20 mg DAILY PO 08/16/17 09:00 09/15/17 08:59 08/20/17 08:38 20 MG Insulin Glargine (Lantus Solostar Pen) 10 units QPM SQ 08/15/17 21:00 09/14/17 20:59 08/19/17 21:32 10 UNITS Insulin Glargine (Lantus Solostar Pen) 12 units QAM SQ 08/16/17 09:00 09/15/17 08:59 08/20/17 08:52 12 UNITS Levothyroxine Sodium (Synthroid Tab) 75 mcg DAILYBB PO 08/16/17 06:30 09/15/17 06:29 08/20/17 05:46 75 MCG Multivitamins/ Minerals (Multivitamin W/ Minerals Tab) 1 tab DAILY PO 08/16/17 09:00 09/15/17 08:59 08/20/17 08:39 1 TAB Ropinirole HCl (Requip Tab) 1 mg QPM PO 08/15/17 21:00 09/14/17 20:59 08/19/17 21:28 1 MG Enalapril Maleate (Vasotec Tab) 20 mg DAILY PO 08/16/17 09:00 09/15/17 08:59 08/20/17 08:40 20 MG Miscellaneous Information (Order Awaiting Action) 1 ea QS N/A 08/15/17 16:00 09/14/17 15:59 Miscellaneous Information (Order Awaiting Action) 1 ea QS N/A 08/15/17 16:00 09/14/17 15:59 Insulin Aspart (novoLOG ASPART) SLIDING SCALE G... ACHS SC 08/15/17 11:00 09/14/17 10:59 08/20/17 08:54 2 UNITS Levofloxacin (Consult) 1 ea UD PRN N/A 08/15/17 11:45 09/14/17 11:44 Ropinirole HCl (Requip Tab) 0.5 mg DAILY PRN PO 08/15/17 13:30 09/14/17 13:29 08/19/17 09:14 0.5 MG Guaifenesin (Robitussin Sugar Free Syrup) 100 mg Q6H PRN PO 08/16/17 00:30 09/15/17 00:29 08/19/17 09:06 100 MG Ioversol (Optiray 320) 100 ml UD PRN IV 08/16/17 10:15 08/20/17 10:14 Lorazepam (Ativan Tab) 0.5 mg Q6H PRN PO 08/18/17 09:00 09/17/17 08:59 08/19/17 22:40 0.5 MG Prednisone (PredniSONE TAB) 20 mg QAM PO 08/19/17 09:00 09/18/17 08:59 08/20/17 08:39 20 MG Levofloxacin (Levaquin Tab) 750 mg Q2D@1100 PO 08/21/17 11:00 08/24/17 08:59 Vital Signs: Date Time Temp Pulse Resp B/P (MAP) Pulse Ox O2 Delivery O2 Flow Rate FiO2 08/20/17 04:00 36.4 83 20 145/74 (97) 93 Room Air 08/20/17 04:00 90 Room Air 08/20/17 00:00 90 Room Air 08/20/17 00:00 90 Room Air 08/19/17 23:49 36.5 74 20 103/59 (74) 91 Room Air 08/19/17 20:17 72 16 95 Room Air 08/19/17 20:00 Room Air 08/19/17 19:49 36.3 86 18 162/67 (98) 95 Room Air 08/19/17 16:00 Room Air 08/19/17 15:41 76 16 96 Room Air 08/19/17 15:17 36.4 84 20 119/66 (83) 90 Room Air 08/19/17 12:00 Room Air 08/19/17 11:18 80 16 96 Room Air 08/19/17 11:16 85 18 126/61 (82) 96 Room Air Laboratory Results: Last 24 Hours Test 08/19/17 10:08 08/19/17 10:26 08/19/17 11:22 08/19/17 14:57 Pleural Fluid Source RIGHT LUNG Pleural Fluid Color YELLOW Pleural Fluid Appearance CLEAR Pleural Fluid WBC 636 /uL Pleural Fluid RBC < 3000 /uL Pleural Fluid pH 7.44 7.43 Pleural Fluid Polynuclear WBCs % 6.0 % Pleural Fluid Mononuclear WBCs % 94.0 % Pleural Fluid Total Protein 1.5 g/dl 1.8 g/dl Pleural Fluid Albumin 1.0 g/dl Pleural Fluid LDH 78 IU 107 IU Pleural Fluid Glucose 102 mg/dl 139 mg/dl Pleural Fluid Amylase 12 U/L 13 U/L Total Bilirubin 0.4 mg/dl Lactate Dehydrogenase 309 U/L Total Protein 6.9 gm/dl Albumin 3.4 gm/dl Bedside Glucose 246 mg/dl Test 08/19/17 16:26 08/19/17 20:31 08/20/17 05:44 08/20/17 07:21 Bedside Glucose 115 mg/dl 187 mg/dl 82 mg/dl White Blood Count 10.38 K/uL Red Blood Count 3.78 M/uL Hemoglobin 11.6 g/dL Hematocrit 34.7 % Mean Corpuscular Volume 91.8 fL Mean Corpuscular Hemoglobin 30.7 pg Mean Corpuscular Hemoglobin Concent 33.4 g/dl RDW Standard Deviation 52.4 fL RDW Coefficient of Variation 15.9 % Platelet Count 329 K/uL Mean Platelet Volume 10.1 fL Sodium Level 139 mmol/L Potassium Level 4.3 mmol/L Chloride Level 105 mmol/L Carbon Dioxide Level 28 mmol/L Anion Gap 6.0 mmol/L Blood Urea Nitrogen 32 mg/dl Creatinine 1.18 mg/dl Est Creatinine Clear Calc Drug Dose 27.6 ml/min Estimated GFR () 48.7 Estimated GFR (Non- 42.0 BUN/Creatinine Ratio 27.3 Random Glucose 56 mg/dl Calcium Level 8.3 mg/dl
[2017-08-20 11:09] VITALS: BP 129/62; PULSE 71; TEMP 36.4; O2SAT 92
[2017-08-20 11:39] VITALS: PULSE 81; O2SAT 95
[2017-08-20] MEDS ORDERED: PRED10TA PO (11:52)
[2017-08-20 11:57] LABS: LEGIONELLA ANTIGEN NOT DETECTED (NOT DETECTED)
--- NOTE | 2017-08-20 11:59 | Discharge Instructions ---
Discharge Instructions Date of Service Aug 20, 2017. Admission Reason for Admission: Pneumonia, Acute Respiratory Failure With Hypoxia Discharge Discharge Diagnosis / Problem: Pneumonia, bilateral pleural effusions Discharge Goals Goal(s): Decrease discomfort, Improve function, Increase independence, Improve disease control, Learn about illness, Diagnostic testing, Therapeutic intervention, Prevent Disease Progression Activity Recommendations Activity Limitations: resume your previous activity . Instructions / Follow-Up Instructions / Follow-Up You were admitted to [facility] due to worsening shortness of breath. You were found to have pneumonia (lung infection) and bilateral pleural effusions (fluid buildup around the lungs). You were treated with IV antibiotics , nebulizer treatments, steroids, and thoracentesis (procedure to drain fluid around the lungs). Your symptoms significantly improved and you are now stable for discharge to home. You will NOT require any antibiotics at discharge. You will need to complete your Prednisone taper- 10 mg daily for the next two days- start this medication on 08/21. You can continue your Albuterol inhaler as prescribed from previous admission. Resume all other regular home medications as prescribed. FOLLOW-UPS: Please follow-up with your PCP within 5-7 days Please follow-up with Pulmonary, Dr. Ricardo within the next 3 months Please follow-up/keep all of your subspecialty appointments Current Hospital Diet Patient's current hospital diet: AHA Diet (Heart Healthy), Low Sodium Diet (2gm Na), Diabetes Type 2 Diet Discharge Diet Recommended Diet: AHA Diet (Heart Healthy), Low Sodium Diet (2gm Na), Diabetes Type 2 Diet Pending Studies Studies pending at discharge: no Laboratory Results Hemoglobin A1c Test 07/23/17 07:00 Range/Units Estimated Average Glucose 151 mg/dl Hemoglobin A1c 6.9 H 4.5-5.6 % Medical Emergencies . Who to Call and When: Medical Emergencies: If at any time you feel your situation is an emergency, please call 911 immediately. . Non-Emergent Contact Non-Emergency issues call your: Primary Care Provider . . "Provider Documentation" section prepared by Katerine Rene. . VTE Core Measure Inpt VTE Proph given/why not?: Unfractionated heparin SQ, T.E.D. Stockings, SCD 's
--- NOTE | 2017-08-20 12:12 | Discharge Summary ---
Discharge Summary Date of Service Aug 20, 2017. Discharge Summary Admission Date: Aug 15, 2017 at 09:39 Discharge Date: Aug 20, 2017 Discharge Disposition: Home Principal Diagnosis: PNA Problems/Secondary Diagnoses: Acute respiratory failure w/ hypoxia Bilateral pleural effusions, likely secondary to diastolic dysfunction R middle lobe lesion Anxiety Chronic diastolic CHF COLTEN on CKD stage III T2DM HTN HLD Hypothyroidism RLS Procedures: ECHOCARDIOGRAM: Interpretation Summary * Name: ALEX DOTY Study Date: 08/16/2017 02:02 PM BP: 152/67 mmHg * Patient Location: [facility]\S\N286\S\2 HR: 99 * : 1930 (M/d/yyyy) Gender: Female Height: 62 in * Age: 86 yrs Ethnicity: [place] Weight: 128 lb * Ordering Physician: Deangelo Egan * Referring Physician: Self, Referred * Performed By: Kaitlin Arellano RCS * * Reason For Study: CHF * BSA: 1.6 m2 * -- Conclusions -- * Left ventricular systolic function is normal. * No regional wall motion abnormalities noted. * Ejection Fraction = 60-65%. * There is mild concentric left ventricular hypertrophy. * Diastolic dysfunction, Grade II (pseudonormalization pattern). 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 * Mild aortic regurgitation. * There is mild mitral regurgitation. * There is mild tricuspid regurgitation. Procedure Details * A complete two-dimensional transthoracic echocardiogram was performed (2D, M- mode, Doppler and color flow Doppler). Left Ventricle * The left ventricular cavity is small. * There is mild concentric left ventricular hypertrophy. * Left ventricular systolic function is normal. * Ejection Fraction = 60-65%. * No regional wall motion abnormalities noted. Right Ventricle * The right ventricle is grossly normal size. * The right ventricular systolic function is normal as assessed by tricuspid annular plane systolic excursion (TAPSE) (normal >1.5 cm). Atria * The left atrium is mildly dilated. * The right atrium is mildly dilated. * No ASD detected; PFO is not assessed. Mitral Valve * The mitral valve is grossly normal. * There is moderate to severe mitral annular calcification. * There is no mitral valve stenosis. * There is mild mitral regurgitation. Tricuspid Valve * The tricuspid valve is not well visualized, but is grossly normal. * There is no tricuspid stenosis. * There is mild tricuspid regurgitation. Aortic Valve * Mild aortic regurgitation. * The prosthetic aortic valve is not well visualized. 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 Pulmonic Valve * The pulmonary valve is not well seen, but the Doppler examination is normal without significant regurgitation or stenosis. Great Vessels * The aortic root is normal size. * The pulmonary is not well visualized. Pericardium/Pleural * There is no pericardial effusion. Great Vessels * Normal inferior vena cava size and collapsability with sniff indicates a normal right atrial pressure of 3 mmHg Left Ventricular Diastolic Function * Diastolic dysfunction, Grade II (pseudonormalization pattern). CHEST ONE VIEW PORTABLE CLINICAL HISTORY: EVALUATE RESPIRATORY DISTRESS.DYSPNEA COMPARISON STUDY: 08/13/2017 FINDINGS: Improved aeration left base. Persistent parenchymal infiltrate right base. Mid and upper lungs are considered clear. IMPRESSION: Improved aeration left base. Solid progressive infiltrate right base. The above report was generated using voice recognition software. It may contain grammatical, syntax or spelling errors. Electronically signed by: Moose Diego M.D. 08/15/2017 8:29 AM Dictated Date/Time: 08/15/2017 8:27 AM The status of this report is Signed. Draft = Not yet reviewed or approved by Radiologist. Signed = Reviewed and approved by Radiologist. CHEST ONE VIEW PORTABLE CLINICAL HISTORY: sob dyspnea COMPARISON STUDY: 08/15/2017 FINDINGS: Mild stable cardiomegaly. Subtle improvement in aeration right base. Slightly progressive infiltrative change left base. Underlying components of congestive failure appears stable. IMPRESSION: 1. Stable findings of congestive failure. 2. Slightly variable minimal basilar parenchymal infiltrative change. The above report was generated using voice recognition software. It may contain grammatical, syntax or spelling errors. Electronically signed by: Moose Diego M.D. 08/16/2017 6:40 AM Dictated Date/Time: 08/16/2017 6:39 AM The status of this report is Signed. Draft = Not yet reviewed or approved by Radiologist. Signed = Reviewed and approved by Radiologist. (CHEST FOR PE) ANGIO WITH CT DOSE: 359.54 mGy.cm HISTORY: 86 years-old Female presents with acute atypical chest pain TECHNIQUE: Multiple CTA images of the chest were obtained after the intravenous administration of 81 ml Optiray 320. Coronal and sagittal MIPS were obtained from the axial data set and were submitted for review. A dose lowering technique was utilized adhering to the principles of ALARA. COMPARISON: Chest radiograph of same day, CTA of the chest 07/22/2017. FINDINGS: CTA: Heart is mildly enlarged. Dense mitral annular calcifications are seen. Prosthetic aortic valve. Coronary arterial disease with moderate atrophy chronic plaquing of the thoracic aorta. The left cardiac chambers and thoracic aorta are not well opacified. No aortic aneurysm identified. The pulmonary arterial tree is opacified to level of the segmental branches and demonstrates no focal filling defects to suggest pulmonary thromboembolic disease. The distal segmental and subsegmental branches are not well evaluated secondary to respiratory motion. Small apparent filling defect of a left lower lobe subsegmental branch on image 13 series [address] CHEST: Thyroid appears enlarged and heterogeneous without dominant nodule identified. Mildly prominent nonspecific lymph nodes are seen about the chest with a 10 mm subcarinal lymph node. 8 mm left paratracheal lymph node seen on image 26 series 4. There are moderate bilateral pleural effusions with dependent bibasilar consolidation. Partially calcified lobulated mixed attenuating lesion of the right middle lobe is again seen on image 146 series 4 measuring 2.1 x 1.5 cm, unchanged from comparison study 07/22/2017. This may contain internal macroscopic fat attenuation. Moderate interlobular septal thickening with pulmonary vascular congestion is noted in addition to scattered round glass opacities and linear subsegmental densities. Patchy areas of geographic attenuation are noted. Mucous plugging noted within the right upper lobe. No pneumothorax. 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 Soft tissues are unremarkable. The bones appear intact. There are degenerative changes of the shoulders and spine. IMPRESSION: 1. No evidence of pulmonary thromboembolic disease or aortic aneurysm. Note however that the thoracic aorta is not well opacified. 2. Moderate pulmonary edema with moderate sized bilateral pleural effusions. Bibasilar consolidative opacities suggest compressive atelectasis with superimposed pneumonia also in the differential. 3. Unchanged lobulated lesion containing internal calcifications within the right middle lobe is again seen measuring up to 2.1 cm which appears unchanged from prior study. This lesion may contain internal macroscopic fat attenuation suggesting a possible hamartoma. Short-term three-month follow-up recommended to further evaluate. The above report was generated using voice recognition software. It may contain grammatical, syntax or spelling errors. Electronically signed by: Ramos Harrell M.D. 08/16/2017 11:12 AM Dictated Date/Time: 08/16/2017 11:03 AM The status of this report is Signed. Draft = Not yet reviewed or approved by Radiologist. Signed = Reviewed and approved by Radiologist. CHEST ONE VIEW PORTABLE HISTORY: 86 years-old Female S/P Thoracentesis COMPARISON: CTA of the chest 08/16/2017 TECHNIQUE: Portable AP view of the chest FINDINGS: Cardiac silhouette is mildly enlarged. Prosthetic aortic valve. Atherosclerosis of the aorta. Decreased size of right pleural effusion. No postprocedural pneumothorax. Persistent left pleural effusion with left basilar consolidation. 1.2 cm pulmonary nodule of the right midlung redemonstrated. Minimal subsegmental opacities of the lateral right lung base suggest atelectasis. Bones appear grossly intact. IMPRESSION: No evidence of postprocedural pneumothorax. The above report was generated using voice recognition software. It may contain grammatical, syntax or spelling errors. Electronically signed by: Ramos Harrell M.D. 08/19/2017 10:58 AM Dictated Date/Time: 08/19/2017 10:56 AM The status of this report is Signed. Draft = Not yet reviewed or approved by Radiologist. Signed = Reviewed and approved by Radiologist. (CHEST) THORAX WITHOUT CLINICAL HISTORY: 86 years-old Female presenting with evaluate nodule post thoracentesis. TECHNIQUE: Multidetector CT imaging of the chest was performed without the use of intravenous contrast. IV contrast: None. A dose lowering technique was used consistent with the principles of ALARA (as low as reasonably achievable). COMPARISON: 08/16/2017. CT DOSE (mGy.cm): The estimated cumulative dose is 215.35 mGy.cm. FINDINGS: Net Development Manager topogram: Unremarkable. On soft tissue windows, enlarged thyroid gland. No axillary, supraclavicular, or mediastinal lymphadenopathy. Evaluation of the chapin limited without intravenous contrast. Atherosclerosis of the aorta. Prostatic aortic valve. Mitral annular and coronary artery calcification. Heart top normal in size. Small bilateral pleural effusions, decreased from prior. No pneumothorax. No pericardial effusion. Upper abdomen normal. On lung windows, dependent consolidation volume loss consistent with passive atelectasis. Smooth interlobular septal thickening. Lobular solid mass measuring approximately 2 cm in the right middle lobe with coarse central calcification. No macroscopic fat is definitively visualized on this exam. Large airways patent. On bone windows, degenerative changes of the spine. Degenerative changes of the right glenohumeral joint. This IMPRESSION: 1. Decreased bilateral pleural effusions, now small in volume. No pneumothorax. 2. Smooth interlobular septal thickening suggests volume overload. 3. 2 cm soft tissue nodule in the right middle lobe. This is indeterminate. Macroscopic fat is not definitively apparent on the current exam. Differential considerations do include hamartoma. Follow-up per Humberto Society 2017 recommendations below. Please refer to below summary of Fleischner Society 2017 recommendations for follow-up of incidental CT nodules (H Scotty et al. Guidelines for management of incidental pulmonary nodules detected on CT images: From the Fleischner Society 2017. Radiology 2017; 284: 228-243.) SOLID NODULES Single nodule; size < 6 mm * Low risk patients: No routine follow-up * High risk patients: Optional CT at 12 months Single nodule; size 6-8 mm * Low risk patients: CT at 6-12 months, then consider CT at 18-24 months * High risk patients: CT at 6-12 months, then at 18-24 months Single nodule; size > 8 mm * Either low or high risk patients: Considered CT at 3 months, PET/CT, or tissue sampling Multiple nodules; size < 6 mm * Low risk patients: No routine follow up * High risk patients: Optional CT at 12 months Multiple nodules; size 6-8 mm * Low risk patients: CT at 3-6 months, then consider CT at 18-24 months * High risk patients: CT at 3-6 months, then at 18-24 months Multiple nodules; size > 8 mm * Low risk patients: CT at 3-6 months, then consider at 18-24 months * High risk patients: CT at 3-6 months, then at 18-24 months Note: These guidelines apply to incidental nodules. These guidelines do not apply to patients younger than 35 years, immunocompromised patients, or patients with cancer. * Low risk patients: Minimal or absent history of smoking and/or other known risk factors * High risk patients: History of smoking, exposure to other carcinogens, emphysema, fibrosis, upper lobe location, family history of lung cancer, etc. * If a nodule up to 8 mm is partly solid or is ground glass, further follow-up is required after 24 months to exclude possible slow growing adenocarcinoma. SUBSOLID NODULES Single ground-glass nodule * Nodule size < 6 mm: No routine follow-up * Nodule size > or = 6 mm: CT at 6-12 months to confirm persistence, then CT every 2 years until 5 years Single part-solid nodule * Nodule size < 6 mm: No routine follow-up * Nodules size > or = 6 mm: CT at 3-6 months to confirm persistence. If unchanged and solid component remains < 6 mm, annual CT should be performed for 5 years Multiple nodules * Nodule size < 6 mm: CT at 3-6 months. If stable, consider CT at 2 and 4 years. * Nodules size > or = 6 mm: CT at 3-6 months. Subsequent management based on the most suspicious nodule(s) Electronically signed by: Earle Aguilar M.D. 08/19/2017 4:16 PM Dictated Date/Time: 08/19/2017 4:09 PM The status of this report is Signed. Draft = Not yet reviewed or approved by Radiologist. Signed = Reviewed and approved by Radiologist. Consultations: Pulmonary- Dr. Angelo Medication Reconciliation New Medications: Prednisone Tab (Prednisone) 10 Mg Tab 10 MG PO daily for 2 Days, #2 TAB Continued Medications: Albuterol (Ventolin Hfa) 60 Puffs/5400 Mcg Aers 2 PUFF INH Q4H PRN for SOB/Wheezing, #1 INHALER Amlodipine (Norvasc) 5 Mg Tab 5 MG PO HS, 0 Refills Aspirin (Aspirin Ec) 81 Mg Tab 81 MG PO HS Atorvastatin (Lipitor) 20 Mg Tab 20 MG PO HS, TAB Benazepril (Lotensin) 40 Mg Tab 20 MG PO DAILY, 0 Refills 1/2 TABLET DOSE Bromfenac Sodium (Ophth) (Prolensa) 0.07 % Gladys 1 DROP OPB QAM Cholecalciferol (D 1000) 1,000 Unit Cap 2000 UNITS PO DAILY Cyanocobalamin (Vitamin B-12 1000 Mcg) 1,000 Mcg Tab 2000 MCG PO DAILY for 30 Days, #6 TAB 2 Refills Diphenoxylate/Atropine (Lomotil 2.5-0.025 mg) 1 Ea Tab 1 TAB PO QID for Diarrhea for 5 Days, #20 TAB Furosemide (Lasix) 20 Mg Tab 20 MG PO DAILY, TAB Insulin Glargine (Lantus Solostar) 100 Unit/Ml Inj 12 UNITS SQ QAM, PEN Insulin Glargine (Lantus Solostar) 100 Unit/Ml Inj 10 UNITS SQ QPM, PEN Levothyroxine Sodium (Levothyroxine Sodium) 75 Mcg Tab 75 MCG PO DAILY, TAB Multiple Vitamins W/ Minerals (Icaps) 1 Cap Cap 1 CAP PO DAILY Ocuvite Preservision (Ocuvite Preservision) 1 Tab Tab 1 TAB PO DAILY, TAB Polyethylene Glycol-Propylene (Systane) 1 Gladys Gladys 1 DROPS OP QPM, #30 ML 5 Refills Ropinirole (Requip) 1 Mg Tab 1 MG PO QPM, TAB Discontinued Medications: Azithromycin (Azithromycin) 250 Mg Tab 250 MG PO QAM for 2 Days, #2 TAB Discharge Exam Review of Systems: Constitutional: No fever, No chills, No sweats, No weakness, No fatigue Eyes: No worsening of vision ENT: No hearing loss Respiratory: + cough, No sputum, No wheezing, No shortness of breath, No dyspnea on exertion, No dyspnea at rest, No hemoptysis Cardiovascular: No chest pain, No edema, No palpitations Abdomen: No pain, No nausea, No vomiting, No diarrhea, No constipation Musculoskeletal: No joint pain, No muscle pain, No swelling, No calf pain Genitourinary - Female: No dysuria, No hematuria Neurologic: No weakness, No numbness/tingling Psychiatric: No depression symptoms, No anxiety Endocrine: No fatigue Hematologic / Lymphatic: No abnormal bleeding/bruising Integumentary: No rash, No itch, No new/changing skin lesions Physical Exam: General Appearance: no apparent distress Eyes: normal inspection, PERRL ENT: hearing grossly normal Neck: supple Respiratory/Chest: lungs clear, no respiratory distress, no accessory muscle use Cardiovascular: regular rate, rhythm, + systolic murmur Abdomen / GI: normal bowel sounds, non tender, soft Extremities: no calf tenderness, no pedal edema Neurologic/Psychiatric: alert, normal mood/affect, oriented x 3 Skin: normal color, warm/dry, no rash Hospital Course Admission H&P: Patient is a pleasant 86 y/o female, with PMHx of chronic diastolic CHF, CKD stage III, T2DM, HTN, HLD, hypothyroidism, and RLS, who presented to the ED because of worsening shortness of breath and fatigue x1 day. Patient was most recently admitted to [facility] 08/11-08/13 due to SOB. She was treated for acute on chronic CHF exacerbation/PNA. She was discharged home to complete a 5 day course of Azithromycin- today would be her last day. +productive cough- yellow sputum. +SOB. +fatigue. Patient denies any fever, chills, sweats, lightheadedness, dizziness, vision changes, CP, palpitations, edema, wheezing, abdominal pain, nausea, vomiting, diarrhea, urinary symptoms, melena, numbness/ tingling, weakness, muscle/joint pain, anxiety/depression, active bleeding, or new skin discoloration/changes. Physical Exam Vital Signs Date Time Temp Pulse Resp B/P (MAP) Pulse Ox O2 Delivery O2 Flow Rate FiO2 08/15/17 09:09 78 16 117/41 98 BiPAP 40 08/15/17 08:30 82 17 134/54 97 BiPAP 40 08/15/17 08:15 68 16 134/54 98 Room Air 08/15/17 08:10 98 BiPAP 7.0 40 08/15/17 07:44 82 16 156/70 93 BiPAP 40 08/15/17 07:35 70 17 95 BiPAP/CPAP 40 08/15/17 07:35 70 17 95 BiPAP 40 08/15/17 07:35 17 95 40 08/15/17 07:20 84 08/15/17 07:10 85 Room Air 08/15/17 07:10 7.0 08/15/17 07:10 85 Room Air 08/15/17 07:10 93 Oxymask 7.0 08/15/17 07:10 36.4 92 24 159/73 85 Room Air General Appearance: no apparent distress Head: normocephalic, atraumatic Eyes: normal inspection, PERRL ENT: + pertinent finding (hard of hearing ) Neck: supple Respiratory/Chest: lungs clear, no respiratory distress, no accessory muscle use, + decreased breath sounds (throughout all lung spence, >at bilateral lung bases ) Cardiovascular: regular rate, rhythm, + systolic murmur Abdomen/GI: normal bowel sounds, non tender, soft Back: normal inspection Extremities/Musculoskelatal: no calf tenderness, + swelling (trace pitting edema bilateral lower extremities ) Neurologic/Psych: alert, normal mood/affect, oriented x 3 Skin: normal color, warm/dry, no rash Hospital Course: Patient is a pleasant 86 y/o female, with PMHx of chronic diastolic CHF, CKD stage III, T2DM, HTN, HLD, hypothyroidism, and RLS, who presented to the ED because of worsening shortness of breath and fatigue x1 day. Acute respiratory failure w/ hypoxia, likely secondary to PNA: - Admit to tele for cardiac monitoring - Trend cardiac enzymes- chronically elevated around- 0.15-0.2- peaked at 0.178 and trended down - EKG w/out acute ischemic changes; follow EKG QAM and PRN for chest pain - O2 protocol, wean as tolerated- does NOT have O2 supplement at home- now on RA - IV Levaquin- treated 08/15-08/19- pulmonary recommends no antibiotics at discharge - DuoNeb QID and PRN for SOB/wheezing, flutter valve, incentive spirometer- continue Albuterol inhaler PRN at discharge - Robitussin 100 mg q6 hrs PRN for cough - BCx NGTD; MRSA swab negative; sputum cultures NG; Legionella ag pending - Start IV Solu Medrol 60 mg BID- transitioned to PO Prednisone 20 mg- complete taper at discharge, 10 mg daily x2 days -- Leukocytosis, likely secondary to steroids- RESOLVED - CTA w/out PE, evidence of pulmonary edema and moderate bilateral pleural effusions- IV Lasix 40 mg x1 Bilateral pleural effusions, likely secondary to diastolic dysfunction: - Pulmonary consulted- appreciate recommendations -- s/p R thoracentesis on 08/[address] Angelo- drained 700 cc, pleural fluid transudative; culture/cytology pending -- s/p L thoracocentesis on 08/[address] Angelo- drained 600 cc, pleural fluid transudative; culture/cytology pending -- f/u in 3 months w/ Dr. Haleigh Thayer middle lobe lesion: f/u in 3 months recommended Anxiety: IV Ativan 0.5 mg PRN for anxiety/SOB Chronic diastolic CHF: - Treated w/ IV Lasix 40 mg x2; continue Lasix 20 mg daily - Monitor I&Os and daily weights- baseline weight ~57kg: negative ~1.5L COLTEN on CKD stage III- baseline Cr. around 0.9-1.0- RESOLVED: - Follow PRP - Renally dose medications T2DM: - Continue Lantus 12 u QAM and 10 u QPM - BSG ACHS and ISS HTN: Continue Norvasc 5 mg daily, Lotensin 20 mg daily HLD: Lipitor 20 mg HS Hypothyroidism- TSH WNL: Continue Synthroid 75 mcg daily RLS: Continue Requip 1 mg HS and 0.5 mg daily PRN DVT prophylaxis: Heparin SQ BID Code Status: LEVEL I, FULL Dispo: Discharge to home I agree with PA assessment and plan and have seen and examined pt myself Resting comfortably in bed VSS Labs reviewed Not requiring O2 Admitted with SOB and noted to have bilateral pleural effusions, and possible superimposed PNA on CT Chest. Underwent bilateral thoracentesis Finished also 5 days of levaquin F/U with Dr Ricardo regarding RML lesion Discharge home Total Time Spent: Greater than 30 minutes This includes examination of the patient, discharge planning, medication reconciliation, and communication with other providers. Discharge Instructions Please refer to the electronic Patient Visit Report (Discharge Instructions) for additional information. Follow-Up Please follow-up with your PCP within 5-7 days Please follow-up with pulmonary, Dr. Mckeon within 3 months Please follow-up/keep all of your subspecialty appointments Additional Copies To Lottie Winn MD
[2017-08-20 13:07] VITALS: BP 129/62; PULSE 81; TEMP 36.4; O2SAT 95
[2017-08-20] MEDS ORDERED: IPRATROPIUM BROMIDE/ALBUTEROL respimat INH INH SCH (16:00)
[2017-08-20 16:22] VITALS: Ht 157.5 cm; Wt 55.9 kg
[2017-08-21] MEDS ORDERED: LEVOFLOXACIN 750 MG TAB PO SCH (11:00)
== END 2017-08-20 16:15 | disposition home or self-care (01) | DRG 193 ==
LOC: EDBD 07:08 → C.EDB 07:09 → C.MED 09:39 → ENRESERV 09:54
PROVIDERS: ADMIT Hospitalist; ATTEND Family Medicine
PROC: 0B9N3ZX Drainage of Right Pleura, Percutaneous Approach, Diagnostic (ICD-10-PCS; principal; 2017-08-19)
DX: J18.9 Pneumonia, unspecified organism (principal); J96.01 Acute respiratory failure with hypoxia; I50.32 Chronic diastolic (congestive) heart failure; N18.3 Chronic kidney disease, stage 3 (moderate); I11.0 Hypertensive heart disease with heart failure; E11.9 Type 2 diabetes mellitus without complications; E03.9 Hypothyroidism, unspecified; G25.81 Restless legs syndrome; Z79.4 Long term (current) use of insulin; Z87.891 Personal history of nicotine dependence; Z79.82 Long term (current) use of aspirin; Z83.3 Family history of diabetes mellitus; Z82.49 Family history of ischemic heart disease and other diseases of the circulatory system

== ENCOUNTER 2017-09-04 07:22 | Inpatient (IN) | payer BC, OTHER ==
[~2017-09-04] VITALS: Ht 157.5 cm; Wt 54.4 kg
[~2017-09-04 07:22] MED LIST changes: -AZIT-57 PO
[2017-09-04] MEDS ORDERED: ALBUT/IPRATROP 3MG/0.5MG NEB 3 ML VIAL INH STA (07:50)
[2017-09-04] MEDS ORDERED: VNTHFA/IN INH (08:05)
[2017-09-04 08:07] LABS: BASO % 0.6 %; BASO ABS # 0.05 K/uL (0-0.2); EOS % 1.8 %; EOS ABS # 0.15 K/uL (0-0.5); HEMATOCRIT 36.5 % (37-47); HEMOGLOBIN 12.3 g/dL (12.0-16.0); IG# 0.03 K/uL (0.00-0.02); LYMPH % 23.7 %; LYMPH ABS # 1.97 K/uL (1.2-3.4); MEAN CELL VOLUME 92.4 fL (80-100); MEAN CORPUSCULAR HEMOGLOBIN 31.1 pg (25-34); MEAN CORPUSCULAR HGB CONC 33.7 g/dl (32-36); MEAN PLATELET VOLUME 10.7 fL (7.4-10.4); MONO % 9.2 %; MONO ABS # 0.76 K/uL (0.11-0.59); NEUT % 64.3 %; NEUT ABS # 5.34 K/uL (1.4-6.5); PLATELET COUNT 288 K/uL (130-400)
--- NOTE | 2017-09-04 08:29 | DIAGNOSTIC IMAGING REPORT ---
CHEST 2 VIEWS ROUTINE CLINICAL HISTORY: Shortness of breath, respiratory distress. COMPARISON STUDY: 08/19/2017 FINDINGS: The cardiac and mediastinal contours remain stable. Aortic valve prosthesis is again visualized. Surgical clips are visualized within the right paratracheal region. There is a 16 mm right perihilar nodule. There are small pleural effusions. There is improving aeration of the left lower lobe. There is mild interstitial thickening.[ IMPRESSION: 1. Persistent mild interstitial thickening/edema 2. Small bilateral pleural effusions 3. Improving aeration of the left lower lobe 4. 16 mm right perihilar nodule Electronically signed by: Josh Simon M.D. 09/04/2017 8:27 AM Dictated Date/Time: 09/04/2017 8:24 AM
[2017-09-04 08:35] LABS: ALBUMIN 3.2 gm/dl (3.4-5.0); CALCIUM 8.6 mg/dl (8.5-10.1); CREATININE 1.29 mg/dl (0.60-1.20); POTASSIUM 4.1 mmol/L (3.5-5.1)
[2017-09-04 08:49] LABS: CKMB 5.4 ng/ml (0.5-3.6); TOTAL PROTEIN 6.8 gm/dl (6.4-8.2)
[2017-09-04] MEDS ORDERED: ASPIRIN 81 MG CHEW PO STA (09:51)
[2017-09-04] MEDS ORDERED: ENOXAPARIN 1 MG/KG SQ SCH (10:00)
[2017-09-04] MEDS ORDERED: ENOXAPARIN 60 MG/0.6 ML SYR SQ SCH (10:15)
[2017-09-04 10:33] VITALS: BP 163/54; PULSE 85; TEMP 36.5; O2SAT 96; BMI 23.1
[2017-09-04] MEDS ORDERED: OXYCODONE/ACETAMINOPHEN 5-325 TAB PO ONE (12:45)
[2017-09-04] MEDS ORDERED: NITROGLYCERIN 0.4 MG SL PER TAB CHARGE SL PRN (13:00)
[2017-09-04] MEDS ORDERED: ONDANSETRON INJ 2 MG/ML 2 ML VIAL IV PRN (13:00)
[2017-09-04] MEDS ORDERED: ACETAMINOPHEN 325 MG TAB PO PRN (13:00)
[2017-09-04] MEDS ORDERED: MAGNESIUM HYDROXIDE SUSP 30 ML UDC PO PRN (13:00)
[2017-09-04] MEDS ORDERED: DIPHENOXYLATE/ATROPINE 2.5/0.025MG TAB PO PRN (13:00)
[2017-09-04] MEDS ORDERED: GLUCOSE 10 TABS/TUBE PO PRN (13:00)
[2017-09-04] MEDS ORDERED: DEXTROSE 50% 50 ML SYR IV PRN (13:00)
[2017-09-04] MEDS ORDERED: GLUCOSE 40% GEL 15 GM TUBE PO PRN (13:00)
[2017-09-04] MEDS ORDERED: ALUMINUM/MAGNESIUM/SIMETH (MAALOX MAX) 30 ML UDC PO PRN (13:00)
[2017-09-04] MEDS ORDERED: ZOLPIDEM TARTRATE 5 MG TAB PO PRN ×2 (13:00)
[2017-09-04] MEDS ORDERED: GLUCAGON FOR INJ 1 MG VIAL SQ PRN (13:00)
[2017-09-04] MEDS ORDERED: ALBUTEROL HFA 8 GM INHALER INH PRN (13:00)
--- NOTE | 2017-09-04 13:20 | History and Physical ---
History & Physical Date & Time of Service: Sep 04, 2017 at 13:02 Chief Complaint: Sob, Recently Had Pneumonia Primary Care Physician: Musa Mejía MD History of Present Illness Source: patient 86 years old female with past medical history of aortic stenosis status post TAPVR on 11/10/2015, also she has nonobstructive cardiomyopathy, moderate mitral regurgitation, chronic diastolic congestive heart failure, bilateral pleural effusion likely secondary to diastolic congestive heart failure Status post thoracocentesis last admission, was transudate in nature, diabetes mellitus insulin-requiring, hypertension, restless leg syndrome, neuropathy, dyslipidemia and hypothyroidism. Patient presented to the hospital with sudden onset episode of shortness of breath happened at night. She woke up at 3 AM with severe shortness of breath. She was gasping for air. Denies any chest pain, denies any fever or chills, denies any cough. Presented to the ED at noticed to have some respiratory distress, with tachycardia heart rate 120 and elevated systolic blood pressure around 170. Patient was placed on 2 L nasal cannula. Chest x-ray revealed some pulmonary congestion. Patient will be admitted for stabilization and diuresis. 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 Family History Diabetes mellitus FH: hypertension Heart disease Social History Smoking Status: Never Smoker Drug Use: none Marital Status: Housing status: lives alone Occupational Status: retired Multi-Drug Resistant Organisms History of MDRO: No Allergies Coded Allergies: Metformin (Unverified Adverse Reaction, Unknown, ., 09/04/17) Oxycodone (Unverified Adverse Reaction, Unknown, HALLUCINATIONS, 09/04/17) Home Medications Scheduled Amlodipine (Norvasc), 5 MG PO HS Aspirin (Aspirin Ec), 81 MG PO HS Atorvastatin (Lipitor), 20 MG PO HS Benazepril (Lotensin), 20 MG PO DAILY Bromfenac Sodium (Ophth) (Prolensa), 1 DROP OPB QAM Cholecalciferol (D 1000), 2,000 UNITS PO DAILY Cyanocobalamin (Vitamin B-12 1000 Mcg), 2,000 MCG PO DAILY Diphenoxylate/Atropine (Lomotil 2.5-0.025 mg), 1 TAB PO QID Furosemide (Lasix), 20 MG PO DAILY Insulin Glargine (Lantus Solostar), 12 UNITS SQ QAM Insulin Glargine (Lantus Solostar), 10 UNITS SQ QPM Levothyroxine Sodium (Levothyroxine Sodium), 75 MCG PO DAILY Multiple Vitamins W/ Minerals (Icaps), 1 CAP PO DAILY Ocuvite Preservision (Ocuvite Preservision), 1 TAB PO DAILY Polyethylene Glycol-Propylene (Systane), 1 DROPS OP QPM Ropinirole (Requip), 1 MG PO HS Scheduled PRN Albuterol Hfa (Ventolin Hfa), 2 PUFFS INH Q4H PRN for SOB/Wheezing Review of Systems Constitutional: No fever, No chills, No sweats, No weight loss, No weakness, No fatigue, No problem reported Eyes: No worsening of vision, No eye pain, No redness, No discharge, No diplopia, No problem reported ENT: No hearing loss, No unusual epistaxis, No nasal symptoms, No sore throat, No tinnitus, No dental problems, No trouble swallowing, No problem reported Respiratory: + shortness of breath, + dyspnea at rest, No cough, No sputum, No wheezing, No dyspnea on exertion, No hemoptysis, No problem reported Cardiovascular: No chest pain, No orthopnea, No PND, No edema, No claudication , No palpitations, No problem reported Abdomen: No pain, No nausea, No vomiting, No diarrhea, No constipation, No GI bleeding, No problem reported Musculoskeletal: + joint pain, No muscle pain, No swelling, No calf pain, No problem reported Genitourinary - Female: No dysuria, No urinary frequency, No urinary urgency, No urinary incontinence, No urinary retention, No hematuria, No dysmenorrhea, No menorrhagia, No metrorrhagia, No rash, No vaginal bleeding, No vaginal discharge, No vaginal itching, No vulvodynia, No , No problem reported Neurologic: No memory loss, No paralysis, No weakness, No numbness/tingling, No vertigo, No balance problems, No problem reported Psychiatric: No depression symptoms, No anhedonism, No anxiety, No insomnia, No substance abuse, No problem reported Endocrine: No fatigue, No excessive thirst, No excessive urination, No problem reported Hematologic / Lymphatic: No abnormal bleeding/bruising, No clotting problems, No swollen lymph nodes, No night sweats, No problem reported Integumentary: No rash, No itch, No new/changing skin lesions, No color change , No bleeding, No problem reported Allergic / Immunologic: No environmental allergies, No seasonal allergies, No pet sensitivities, No food allergies, No hives, No frequent infections, No poor healing, No prolonged convalescence, No problem reported Physical Exam Vital Signs Date Time Temp Pulse Resp B/P (MAP) Pulse Ox O2 Delivery O2 Flow Rate FiO2 09/04/17 12:33 109 09/04/17 12:16 98 18 178/74 94 Nasal Cannula 2.0 09/04/17 11:32 94 17 164/77 95 Nasal Cannula 2.0 09/04/17 10:33 36.5 85 18 163/54 96 Nasal Cannula 2.0 09/04/17 10:33 98 Nasal Cannula 2.0 09/04/17 10:33 157/78 09/04/17 10:31 129/106 09/04/17 10:26 163/54 09/04/17 10:22 87 21 09/04/17 10:16 169/116 09/04/17 09:52 87 17 95 09/04/17 09:41 77 18 142/62 93 Room Air 09/04/17 09:31 142/62 09/04/17 09:28 142/69 09/04/17 09:22 79 19 93 09/04/17 09:16 142/69 09/04/17 08:52 85 16 93 09/04/17 08:01 137/62 09/04/17 07:52 82 23 91 09/04/17 07:43 87 09/04/17 07:43 88 16 149/67 94 Room Air 09/04/17 07:40 149/67 09/04/17 07:36 94 Room Air 09/04/17 07:28 36.5 91 22 145/63 96 Room Air General Appearance: WD/WN, no apparent distress Head: normocephalic, atraumatic Eyes: normal inspection, EOMI ENT: normal ENT inspection, hearing grossly normal Neck: supple Respiratory/Chest: chest non-tender, no accessory muscle use, + decreased breath sounds, + rales Cardiovascular: regular rate, rhythm, no edema, no gallop, no JVD, + systolic murmur Abdomen/GI: normal bowel sounds, non tender, soft, no organomegaly, no pulsatile mass Back: normal inspection Extremities/Musculoskelatal: normal inspection, no calf tenderness, normal capillary refill, no pedal edema 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7 % Monocytes (%) (Auto) 9.2 % Eosinophils (%) (Auto) 1.8 % Basophils (%) (Auto) 0.6 % Neutrophils # (Auto) 5.34 1.4-6.5 K/uL Lymphocytes # (Auto) 1.97 1.2-3.4 K/uL Monocytes # (Auto) 0.76 0.11-0.59 K/uL Eosinophils # (Auto) 0.15 0-0.5 K/uL Basophils # (Auto) 0.05 0-0.2 K/uL RDW Standard Deviation 54.0 36.4-46.3 fL RDW Coefficient of Variation 16.0 11.5-14.5 % Immature Granulocyte % (Auto) 0.4 % Immature Granulocyte # (Auto) 0.03 0.00-0.02 K/uL Prothrombin Time 10.3 9.0-12.0 SECONDS Prothromb Time International Ratio 1.0 0.9-1.1 Activated Partial Thromboplast Time 24.0 21.0-31.0 SECONDS Partial Thromboplastin Ratio 0.9 Sodium Level 140 136-145 mmol/L Potassium Level 4.1 3.5-5.1 mmol/L Chloride Level 110 98-107 mmol/L Carbon Dioxide Level 22 21-32 mmol/L Anion Gap 8.0 3-11 mmol/L Blood Urea Nitrogen 30 7-18 mg/dl Creatinine 1.29 0.60-1.20 mg/dl Est Creatinine Clear Calc Drug Dose 25.2 ml/min Estimated GFR () 43.7 Estimated GFR (Non- 37.7 BUN/Creatinine Ratio 23.5 10-20 Random Glucose 148 70-99 mg/dl Calcium Level 8.6 8.5-10.1 mg/dl Total Bilirubin 0.5 0.2-1 mg/dl Aspartate Amino Transf (AST/SGOT) 21 15-37 U/L Alanine Aminotransferase (ALT/SGPT) 34 12-78 U/L Alkaline Phosphatase 69 45-117 U/L Total Creatine Kinase 124 26-192 U/L Creatine Kinase MB 5.4 0.5-3.6 ng/ml Creatine Kinase MB Ratio 4.4 0-3.0 Troponin I 0.209 0-0.045 ng/ml Pro-B-Type Natriuretic Peptide 7112 0-1800 pg/ml Total Protein 6.8 6.4-8.2 gm/dl Albumin 3.2 3.4-5.0 gm/dl Globulin 3.6 2.5-4.0 gm/dl Albumin/Globulin Ratio 0.9 0.9-2 Impression Assessment and Plan 86 years old female with past medical history of aortic stenosis status post TAPVR on 11/10/2015, also she has nonobstructive cardiomyopathy, moderate mitral regurgitation, chronic diastolic congestive heart failure, bilateral pleural effusion likely secondary to diastolic congestive heart failure Status post thoracocentesis last admission, was transudate in nature, diabetes mellitus insulin-requiring, hypertension, restless leg syndrome, neuropathy, dyslipidemia and hypothyroidism. Patient presented to the hospital with sudden onset episode of shortness of breath woke her up from sleep at 3 AM. Appears to be paroxysmal nocturnal dyspnea Assessment Acute respiratory failure with tachycardia/tachypnea secondary to most likely paroxysmal nocturnal dyspnea attack Acute on chronic diastolic congestive heart failure COPD exacerbation History of bilateral transudate pleural effusion status post thoracocentesis last admission Right middle lobe nodule 2 cm nodule needs follow-up in 3 months Restless leg syndrome Diabetes mellitus type 2 insulin-requiring, complicated by peripheral neuropathy Chronic kidney disease stage III at baseline Hypertension Dyslipidemia Hypothyroidism plan: admit to telemetry obtain serial cardiac enz Currently no leukocytosis, no evidence of recurrent pleural effusion Lasix 20 mg IV twice a day Calculate I/oh Start DuoNeb nebulizer We'll hold off on steroids at this point since she does not have a huge element of wheezing Insulin sliding scale Continue Lipitor/GIULIANA inhibitor outpatient medication NTG SL/topical prn 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 Y/N: Yes Risk Level: Moderate
[2017-09-04] MEDS ORDERED: FUROSEMIDE 40 MG/4 ML VIAL IV SCH (13:30)
--- NOTE | 2017-09-04 13:35 | EMERGENCY ROOM VISIT NOTE ---
History Report prepared by Sumeet: Randy Mojica Under the Supervision of: Dr. Vaibhav Garcia D.O. First contact with patient: 07:35 Chief Complaint: SHORTNESS OF BREATH Stated Complaint: SOB, RECENTLY HAD PNEUMONIA History of Present Illness The patient is an 86 year old female who presents to the Emergency Room with complaints of constant shortness of breath beginning this morning. The patient states she is recently overcoming pneumonia. She reports she had an episode of shortness of breath yesterday after she ran errands. The patient notes she sat down and felt better after some time passed. She states she woke up this morning and was very short of breath. The patient reports she used her inhaler and feels much better, but she is still short of breath. She notes she was discharged from the hospital two weeks ago and weighed 120 pounds. The patient states she has gained 5 pounds and was 125 pounds last evening. She denies any new cough, runny nose, congestion, chest pain, or sorethroat. Review of EMR shows the patient was diagnosed with right, lower lobe pneumonia and discharged on August 20, 2017 with normal vital signs. Source of History: patient Onset: this morning Position: other (global) Quality: other (SOB) Timing: constant Modifying Factors (Relieving): other (inhaler) Associated Symptoms: No sorethroat, No cough, No chest pain Note: Associated symptoms: 5 pound weight gain Denies: runny nose and congestion Review of Systems See HPI for pertinent positives & negatives. A total of 10 systems reviewed and were otherwise negative. Past Medical & Surgical Medical Problems: (1) Acute congestive heart failure (2) Acute diastolic heart failure (3) Acute respiratory failure with hypoxia (4) chf exac, pna (5) Hypertension (6) Insulin dependent diabetes mellitus (7) Neuropathy (8) Upper respiratory infection, acute Surgical Problems: (1) Aortic valve replaced (2) S/P TAVR (transcatheter aortic valve replacement) Family History Diabetes mellitus FH: hypertension Heart disease Social History Smoking Status: Never Smoker Drug Use: none Marital Status: Occupation Status: retired Current/Historical Medications Scheduled Amlodipine (Norvasc), 5 MG PO HS Aspirin (Aspirin Ec), 81 MG PO HS Atorvastatin (Lipitor), 20 MG PO HS Benazepril (Lotensin), 20 MG PO DAILY Bromfenac Sodium (Ophth) (Prolensa), 1 DROP OPB QAM Cholecalciferol (D 1000), 2,000 UNITS PO DAILY Cyanocobalamin (Vitamin B-12 1000 Mcg), 2,000 MCG PO DAILY Diphenoxylate/Atropine (Lomotil 2.5-0.025 mg), 1 TAB PO QID Furosemide (Lasix), 20 MG PO DAILY Insulin Glargine (Lantus Solostar), 12 UNITS SQ QAM Insulin Glargine (Lantus Solostar), 10 UNITS SQ QPM Levothyroxine Sodium (Levothyroxine Sodium), 75 MCG PO DAILY Multiple Vitamins W/ Minerals (Icaps), 1 CAP PO DAILY Ocuvite Preservision (Ocuvite Preservision), 1 TAB PO DAILY Polyethylene Glycol-Propylene (Systane), 1 DROPS OP QPM Ropinirole (Requip), 1 MG PO HS Scheduled PRN Albuterol Hfa (Ventolin Hfa), 2 PUFFS INH Q4H PRN for SOB/Wheezing Allergies Coded Allergies: Metformin (Unverified Adverse Reaction, Unknown, ., 09/04/17) Oxycodone (Unverified Adverse Reaction, Unknown, HALLUCINATIONS, 09/04/17) Physical Exam Vital Signs Date Time Temp Pulse Resp B/P (MAP) Pulse Ox O2 Delivery O2 Flow Rate FiO2 09/04/17 12:33 109 09/04/17 12:16 98 18 178/74 94 Nasal Cannula 2.0 09/04/17 11:32 94 17 164/77 95 Nasal Cannula 2.0 09/04/17 10:33 36.5 85 18 163/54 96 Nasal Cannula 2.0 09/04/17 10:33 98 Nasal Cannula 2.0 09/04/17 10:33 157/78 09/04/17 10:31 129/106 09/04/17 10:26 163/54 09/04/17 10:22 87 21 09/04/17 10:16 169/116 09/04/17 09:52 87 17 95 09/04/17 09:41 77 18 142/62 93 Room Air 09/04/17 09:31 142/62 09/04/17 09:28 142/69 09/04/17 09:22 79 19 93 09/04/17 09:16 142/69 09/04/17 08:52 85 16 93 09/04/17 08:01 137/62 09/04/17 07:52 82 23 91 09/04/17 07:43 87 09/04/17 07:43 88 16 149/67 94 Room Air 09/04/17 07:40 149/67 09/04/17 07:36 94 Room Air 09/04/17 07:28 36.5 91 22 145/63 96 Room Air Physical Exam CONSTITUTIONAL/VITAL SIGNS: Reviewed / noted above. GENERAL: Non-toxic in appearance. INTEGUMENTARY: Warm, dry, and [place]. HEAD: Normocephalic. EYES: without scleral icterus or trauma. ENT/OROPHARYNX: clear and moist. LYMPHADENOPATHY/NECK: Is supple without lymphadenopathy or meningismus. RESPIRATORY: Lungs clear and equal. CARDIOVASCULAR: Regular rate and rhythm. GI/ABDOMEN: Soft and nontender. No organomegaly or pulsatile mass. No rebound or guarding. Normal bowel sounds. EXTREMITIES: Warm and well perfused. BACK: No CVA tenderness. NEUROLOGICAL: Intact without focal deficits. PSYCHIATRIC: normal affect. MUSCULOSKELETAL: Normally developed with good muscle tone. Medical Decision & Procedures ER Provider Diagnostic Interpretation: X ray results and stated below per my interpretation and radiology interpretation. CHEST 2 VIEWS ROUTINE CLINICAL HISTORY: Shortness of breath, respiratory distress. COMPARISON STUDY: 08/19/2017 FINDINGS: The cardiac and mediastinal contours remain stable. Aortic valve prosthesis is again visualized. Surgical clips are visualized within the right paratracheal region. There is a 16 mm right perihilar nodule. There are small pleural effusions. There is improving aeration of the left lower lobe. There is mild interstitial thickening.[ IMPRESSION: 1. Persistent mild interstitial thickening/edema 2. Small bilateral pleural effusions 3. Improving aeration of the left lower lobe 4. 16 mm right perihilar nodule Electronically signed by: Josh Simon M.D. 09/04/2017 8:27 AM Dictated Date/Time: 09/04/2017 8:24 AM Laboratory Results 09/04/17 07:45 Red Blood Count 3.95, Mean Corpuscular Volume 92.4, Mean Corpuscular Hemoglobin 31.1, Mean Corpuscular Hemoglobin Concent 33.7, Mean Platelet Volume 10.7, Neutrophils (%) (Auto) 64.3, Lymphocytes (%) (Auto) 23.7, Monocytes (%) (Auto) 9.2, Eosinophils (%) (Auto) 1.8, Basophils (%) (Auto) 0.6, Neutrophils # (Auto) 5.34, Lymphocytes # (Auto) 1.97, Monocytes # (Auto) 0.76, Eosinophils # (Auto) 0.15, Basophils # (Auto) 0.05 09/04/17 07:45 Test 09/04/17 07:45 09/04/17 12:50 09/04/17 13:01 White Blood Count 8.30 K/uL (4.8-10.8) Red Blood Count 3.95 M/uL (4.2-5.4) Hemoglobin 12.3 g/dL (12.0-16.0) Hematocrit 36.5 % (37-47) Mean Corpuscular Volume 92.4 fL (80-100) Mean Corpuscular Hemoglobin 31.1 pg (25-34) Mean Corpuscular Hemoglobin Concent 33.7 g/dl (32-36) Platelet Count 288 K/uL (130-400) Mean Platelet Volume 10.7 fL (7.4-10.4) Neutrophils (%) (Auto) 64.3 % Lymphocytes (%) (Auto) 23.7 % Monocytes (%) (Auto) 9.2 % Eosinophils (%) (Auto) 1.8 % Basophils (%) (Auto) 0.6 % Neutrophils # (Auto) 5.34 K/uL (1.4-6.5) Lymphocytes # (Auto) 1.97 K/uL (1.2-3.4) Monocytes # (Auto) 0.76 K/uL (0.11-0.59) Eosinophils # (Auto) 0.15 K/uL (0-0.5) Basophils # (Auto) 0.05 K/uL (0-0.2) RDW Standard Deviation 54.0 fL (36.4-46.3) RDW Coefficient of Variation 16.0 % (11.5-14.5) Immature Granulocyte % (Auto) 0.4 % Immature Granulocyte # (Auto) 0.03 K/uL (0.00-0.02) Prothrombin Time 10.3 SECONDS (9.0-12.0) Prothromb Time International Ratio 1.0 (0.9-1.1) Activated Partial Thromboplast Time 24.0 SECONDS (21.0-31.0) Partial Thromboplastin Ratio 0.9 Anion Gap 8.0 mmol/L (3-11) Est Creatinine Clear Calc Drug Dose 25.2 ml/min Estimated GFR () 43.7 Estimated GFR (Non- 37.7 BUN/Creatinine Ratio 23.5 (10-20) Calcium Level 8.6 mg/dl (8.5-10.1) Total Bilirubin 0.5 mg/dl (0.2-1) Aspartate Amino Transf (AST/SGOT) 21 U/L (15-37) Alanine Aminotransferase (ALT/SGPT) 34 U/L (12-78) Alkaline Phosphatase 69 U/L (45-117) Total Creatine Kinase 124 U/L (26-192) Creatine Kinase MB 5.4 ng/ml (0.5-3.6) Creatine Kinase MB Ratio 4.4 (0-3.0) Pro-B-Type Natriuretic Peptide 7112 pg/ml (0-1800) Total Protein 6.8 gm/dl (6.4-8.2) Albumin 3.2 gm/dl (3.4-5.0) Globulin 3.6 gm/dl (2.5-4.0) Albumin/Globulin Ratio 0.9 (0.9-2) Laboratory results as stated above per my review. Medications Administered Medications (Trade) Dose Ordered Sig/David Route Start Time Stop Time Status Last Admin Dose Admin Albuterol/ Ipratropium (Duoneb) 3 ml NOW STAT INH 09/04/17 07:50 09/04/17 07:52 DC 09/04/17 07:50 3 ML Aspirin (Aspirin Chew) 324 mg NOW STAT PO 09/04/17 09:51 09/04/17 09:53 DC 09/04/17 10:17 324 MG Enoxaparin Sodium (Lovenox Inj) 60 mg Q12 SQ 09/04/17 10:15 10/04/17 10:14 09/04/17 10:31 60 MG Oxycodone/ Acetaminophen (Percocet 5-325mg Tab) 1 tab NOW ONCE PO 09/04/17 12:45 09/04/17 12:46 DC 09/04/17 12:41 1 TAB ECG Indication: SOB/dyspnea Rate (beats per minute): 99 Rhythm: sinus rhythm Findings: LBBB, PAC, no acute ischemic change, no ectopy ED Course 07: Previous medical records were reviewed. The patient was evaluated in room A02. A complete history and physical examination was performed. 0750: Ordered Albuterol/Ipratropium 3ml INH 0951: Ordered Aspirin 324 mg PO 0957: I reevaluated the patient. She states every time she comes to the ED, her troponin is elevated. The patient will perform an ambulatory trial to determine if she has exertional symptoms. If she passes the trial, she will be discharged home. I discussed the treatment plan with her and her daughter. They verbalized agreement, and I answered all remaining questions. 1011: The nurse informed me the patient was short of breath shortly into the ambulatory trial. The patient will be evaluated for further management and care. 1015: Ordered Enoxaparin Sodium 60 mg SQ 1025: I discussed the patient's case with Dr. Amaya [place], [facility] Hospitalist. The patient will be evaluated for further management and care. 1245: Ordered Oxycodone/Acetaminophen 1 tab PO Medical Decision Differentials considered include acute myocardial infarction, acute coronary syndrome, myocarditis, pericarditis, pericardial effusions /tamponade, esophageal perforation, pulmonary embolism, pneumonia, pneumothorax, cardiomyopathy, congestive heart, anemia, and COPD/asthma exacerbation. This is an 86-year-old female who presents to the ED for the chief complaint of shortness of breath. The patient reports dyspnea this morning. She states that she use her inhaler and it helped a little bit. The patient denies any upper respiratory symptoms. Does not specifically complain of chest pain. Her physical exam or vital signs are stable. EKG shows a sinus rhythm at a rate of 99 with left bundle branch block. Chest x-ray did not show acute process. CBC is unremarkable, BNP is 7112. BUN is 30 creatinine is 1.29. Glucose is 148. Troponin was elevated at 0.209. The patient was told results of the test. She was given aspirin by mouth. She was given subcutaneous Lovenox. She'll be seen by the hospitalist for further inpatient evaluation and care. Medication Reconcilliation Current Medication List: was personally reviewed by me Blood Pressure Screening Patient's blood pressure: Normal blood pressure Blood pressure disposition: Did not require urgent referral Consults Time Called: 1012 Consulting Physician: Dr. Amaya Colorado [facility] Hospitalist Returned Call: [phone] I discussed the patient's case with Dr. Amaya Colorado [facility] Hospitalist. The patient will be evaluated for further management and care. Impression Primary Impression: Elevated troponin Additional Impression: Dyspnea Scribe Attestation The scribe's documentation has been prepared under my direction and personally reviewed by me in its entirety. I confirm that the note above accurately reflects all work, treatment, procedures, and medical decision making performed by me. Departure Information Dispostion Being Evaluated By Hospitalist Referrals Musa Mejía MD (PCP) Patient Instructions My [facility] Problem Qualifiers
[2017-09-04] MEDS: ALBUT/IPRATROP 3MG/0.5MG NEB 3 ML VIAL INH SCH ×2 (16:00→20:16)
[2017-09-04 16:30] VITALS: BP 169/83; PULSE 81; TEMP 36.6; O2SAT 98
[2017-09-04] MEDS ORDERED: NURSING VERBAL MED ORDER ONE (19:30)
[2017-09-04 20:16] VITALS: PULSE 74; O2SAT 96
[2017-09-04 20:21] VITALS: BP 155/87; PULSE 91; TEMP 36.5; O2SAT 94
[2017-09-04] MEDS: AMLODIPINE BESYLATE 5 MG TAB PO SCH (20:23)
[2017-09-04] MEDS: ROPINIROLE HCL 1 MG TAB PO SCH (20:23)
[2017-09-04] MEDS: ARTIFICIAL TEARS OP SOLN OP SCH (20:23)
[2017-09-04] MEDS: ATORVASTATIN 20 MG TAB PO SCH (20:23)
[2017-09-04] MEDS: FUROSEMIDE INJ 20 MG in SYRINGE 0 ML IV SCH (20:24)
[2017-09-04] MEDS: INSULIN GLARGINE SOLOSTAR 100 UNITS/ML 3 ML PEN SQ SCH (20:28)
[2017-09-04] MEDS: INSULIN ASPART 100 UNITS/ML 3 ML PEN SC SCH (20:32)
[2017-09-05] VITALS (13 sets, daily range): BP systolic 123–147; BP diastolic 54–65; PULSE 74–85; TEMP 36.3–36.6; O2SAT 90–98; Ht 157.5 cm; Wt 54.4 kg
[2017-09-05 03:13] LABS: ALBUMIN 2.9 gm/dl (3.4-5.0); CALCIUM 8.4 mg/dl (8.5-10.1); CREATININE 1.29 mg/dl (0.60-1.20)
[2017-09-05 03:24] LABS: TOTAL PROTEIN 6.1 gm/dl (6.4-8.2)
[2017-09-05] MEDS: LEVOTHYROXINE 75 MCG TAB PO SCH (06:20)
[2017-09-05] MEDS: INSULIN ASPART 100 UNITS/ML 3 ML PEN SC SCH ×4 (07:00→20:50)
[2017-09-05 07:51] LABS: BASO % 0.8 %; BASO ABS # 0.06 K/uL (0-0.2); EOS % 6.4 %; EOS ABS # 0.47 K/uL (0-0.5); HEMATOCRIT 35.1 % (37-47); HEMOGLOBIN 11.6 g/dL (12.0-16.0); IG# 0.02 K/uL (0.00-0.02); LYMPH % 28.6 %; MEAN CELL VOLUME 92.4 fL (80-100); MEAN CORPUSCULAR HEMOGLOBIN 30.5 pg (25-34); MEAN PLATELET VOLUME 10.5 fL (7.4-10.4); MONO % 9.8 %; MONO ABS # 0.72 K/uL (0.11-0.59); NEUT % 54.1 %; NEUT ABS # 3.97 K/uL (1.4-6.5); PLATELET COUNT 279 K/uL (130-400); RED CELL DISTRIBUTION WIDTH CV 16.4 % (11.5-14.5); RED CELL DISTRIBUTION WIDTH SD 54.8 fL (36.4-46.3); WHITE BLOOD COUNT 7.34 K/uL (4.8-10.8)
[2017-09-05] MEDS: ALBUT/IPRATROP 3MG/0.5MG NEB 3 ML VIAL INH SCH ×4 (07:51→19:45)
[2017-09-05] MEDS: FUROSEMIDE INJ 20 MG in SYRINGE 0 ML IV SCH ×2 (08:08→20:42)
[2017-09-05] MEDS: ENALAPRIL MALEATE 10 MG TAB PO SCH (08:09)
[2017-09-05] MEDS: CYANOCOBALAMIN 500 MCG TAB (VIT B-12) PO SCH (08:09)
[2017-09-05] MEDS: CEROVITE ADV FORMULA TAB PO SCH (08:09)
[2017-09-05] MEDS: ENOXAPARIN 30 MG/0.3 ML SYR SC SCH (08:10)
[2017-09-05] MEDS: INSULIN GLARGINE SOLOSTAR 100 UNITS/ML 3 ML PEN SQ SCH ×2 (08:15→20:52)
--- NOTE | 2017-09-05 14:05 | Hospitalist Progress Note ---
Hospitalist Progress Note Date of Service Sep 05, 2017. (Nicole Craig ., BARBYC) Subjective Pt evaluation today including: conversation w/ patient, physical exam, chart review, lab review, review of studies, review of inpatient medication list Pain: None PO Intake: Tolerating PO diet Voiding: no voiding problems The patient reports feeling better. The patient still reports shortness of breath but states it is improving. She states this is her fourth admission in the last month or so for similar issues and is frustrated. The patient denies fevers, chills, sweats, chest pain, palpitations, claudication, cough, wheezing , nausea, vomiting, abdominal pain, dysuria, hematuria, urinary retention, paralysis, weakness, numbness and tingling. Additional Comments: See HPI for pertinent positives and negatives. All other systems reviewed and negative. (Nicole Craig ., BARBYC) Objective Vital Signs Date Time Temp Pulse Resp B/P (MAP) Pulse Ox O2 Delivery O2 Flow Rate FiO2 09/05/17 12:00 Room Air 09/05/17 11:44 36.5 74 18 124/63 (83) 98 2.0 09/05/17 11:20 74 16 98 Nasal Cannula 2.0 09/05/17 08:16 36.6 74 18 147/61 (89) 97 2.0 09/05/17 08:00 Room Air 09/05/17 07:51 74 16 96 Nasal Cannula 2.0 09/05/17 04:00 93 Nasal Cannula 1.0 09/05/17 02:47 36.6 76 18 145/64 (91) 93 Nasal Cannula 1.0 09/05/17 00:09 36.6 76 16 134/54 (80) 94 Room Air 09/05/17 00:00 94 Room Air 09/04/17 20:21 36.5 91 18 155/87 (109) 94 Room Air 09/04/17 20:16 74 16 96 Nasal Cannula 1.0 09/04/17 20:00 Room Air 09/04/17 16:30 36.6 81 16 169/83 (111) 98 Nasal Cannula 2.0 09/04/17 16:11 91 18 147/64 97 Nasal Cannula 2.0 09/04/17 15:13 91 18 168/73 97 Nasal Cannula 2.0 1/3/18 15:07 97 Nasal Cannula 2.0 09/04/17 14:12 82 18 147/80 97 Nasal Cannula 2.0 (Nicole Craig ., PA-C) Physical Exam Notes: General appearance: Well-developed, well-nourished, no apparent distress Head: Normocephalic, atraumatic Eyes: Normal inspection, PERRL, EOMI ENT: Normal ENT inspection, hearing grossly normal, pharynx normal Neck: Supple, no JVD, trachea midline Respiratory/Chest: +Decreased breath sounds. Lungs clear to auscultation, no respiratory distress Cardiovascular: Regular rate & rhythm, no gallop, no murmur Abdomen/GI: Normal bowel sounds, non-tender, soft Extremities/Musculoskeletal: +Trace pitting edema. Normal inspection, no calf tenderness Neurological/Psych: Alert, normal mood/affect, oriented x 3 Skin: Normal color, warm/dry, no rash (Nicole Craig ., PA-C) Laboratory Results Last 24 Hours Test 09/04/17 14:40 09/04/17 16:31 09/04/17 16:33 09/04/17 17:11 Troponin I 0.198 ng/ml Triglycerides Level 83 mg/dl Cholesterol Level 147 mg/dl HDL Cholesterol 54 mg/dl LDL Cholesterol, Calculated 76 mg/dl VLDL Cholesterol, Calculated 17 mg/dl Cholesterol/HDL Ratio 2.7 Bedside Glucose 64 mg/dl 67 mg/dl 162 mg/dl Test 09/04/17 19:17 09/04/17 20:26 09/05/17 02:42 09/05/17 06:39 Total Creatine Kinase 128 U/L 116 U/L Troponin I 0.211 ng/ml 0.227 ng/ml Bedside Glucose 116 mg/dl 76 mg/dl Sodium Level 142 mmol/L Potassium Level 4.0 mmol/L Chloride Level 110 mmol/L Carbon Dioxide Level 29 mmol/L Anion Gap 3.0 mmol/L Blood Urea Nitrogen 34 mg/dl Creatinine 1.29 mg/dl Est Creatinine Clear Calc Drug Dose 25.2 ml/min Estimated GFR () 43.7 Estimated GFR (Non- 37.7 BUN/Creatinine Ratio 26.5 Random Glucose 59 mg/dl Calcium Level 8.4 mg/dl Magnesium Level 1.9 mg/dl Total Bilirubin 0.4 mg/dl Aspartate Amino Transf (AST/SGOT) 20 U/L Alanine Aminotransferase (ALT/SGPT) 31 U/L Alkaline Phosphatase 61 U/L Total Protein 6.1 gm/dl Albumin 2.9 gm/dl Globulin 3.2 gm/dl Albumin/Globulin Ratio 0.9 Test 09/05/17 07:28 09/05/17 11:31 White Blood Count 7.34 K/uL Red Blood Count 3.80 M/uL Hemoglobin 11.6 g/dL Hematocrit 35.1 % Mean Corpuscular Volume 92.4 fL Mean Corpuscular Hemoglobin 30.5 pg Mean Corpuscular Hemoglobin Concent 33.0 g/dl Platelet Count 279 K/uL Mean Platelet Volume 10.5 fL Neutrophils (%) (Auto) 54.1 % Lymphocytes (%) (Auto) 28.6 % Monocytes (%) (Auto) 9.8 % Eosinophils (%) (Auto) 6.4 % Basophils (%) (Auto) 0.8 % Neutrophils # (Auto) 3.97 K/uL Lymphocytes # (Auto) 2.10 K/uL Monocytes # (Auto) 0.72 K/uL Eosinophils # (Auto) 0.47 K/uL Basophils # (Auto) 0.06 K/uL RDW Standard Deviation 54.8 fL RDW Coefficient of Variation 16.4 % Immature Granulocyte % (Auto) 0.3 % Immature Granulocyte # (Auto) 0.02 K/uL Bedside Glucose 132 mg/dl (Nicole Craig, MIRANDA) Assessment and Plan 86 y/o female with a history of HTN, HLD, s/p TAVR, diastolic CHF, DM II, hypothyroidism, neuropathy and periodic limb movement disorder who presents with shortness of breath and PND. Acute on chronic diastolic CHF--improving -Admit to telemetry. No acute events overnight. Pt in SR with HR 70s-90s -Lasix 20 IV BID. Pt only takes Lasix 20 mg PO qd at home -Monitor I's & O's, daily weights -Troponin remains stable around .2, chronically elevated -Consult cardiology as pt has had frequent recent admissions with CHF. Need to consider changing home regimen. Pt sees Dr. Alfonzo Mullen QIDR HTN, HLD, s/p TAVR--stable -Continue ASA, Norvasc 5 mg PO qd, enalapril 20 mg PO qd DM II--HgbA1c 6.9 on 07/23/17 -Lantus 12 units SC qam and 10 units SC qpm -Insulin sliding scale -Check BSGs q ac and qhs Hypothyroidism -Continue Synthroid 75 mcg PO qd Neuropathy, periodic limb movement disorder -Continue Requip 1 mg PO hs and 0.5 mg PO daily prn DVT prophylaxis -Enoxaparin 30 mg SC q24h Code Status -Level I, FULL RESUSCITATION STATUS (Nicole Craig ., PA-C) Supervising Note Dr. Davies I performed a history and physical examination on the patient. I reviewed above note and agree with it. I discussed plan with APC and patient. During my face to face encounter with the patient, I answered all of the patient's questions. Patient does not seem to believe that the diastolic dysfunction is the reason as to why she has been returning to the hospital. I spent about 20 minutes discussing with patient that Dr. Mejía believes this to be related to the heart failure. I did explain that heart failure is not curative and may progress. hOWEVER, WE ARE HOPING THAT WITH TIGHTER bp control, her exacerbation may decrease. (Milind Davies M.D.)
--- NOTE | 2017-09-05 16:24 | Cardiology Consultation ---
Cardiology Consultation Date of Consultation: Sep 05, 2017. Requesting Physician: Stanislav Reason for Consultation: CHF Pt evaluation today including: conversation w/ patient, physical exam, chart review, lab review, review of studies, review of inpatient medication list, conversation w/ attending History of Present Illness The patient is an 86-year-old woman with a history of nonobstructive coronary disease and aortic stenosis who underwent percutaneous aortic valve replacement in November of 2015. In July this year she was admitted to [facility] with acute shortness of breath and decompensated diastolic heart failure. She has been admitted to the hospital in 3 additional occasions for similar symptoms of dyspnea. Two nights ago the patient experienced worsening dyspnea which was progressive in nature over the course of a few hours. She stated that while going to get some prescriptions at the grocery store she began to feel somewhat under the weather and mildly dyspneic. Later that evening she awoke from sleep acutely dyspneic and was transported to [facility]. During this time she did not experience symptoms of chest discomfort or chest pressure. She has not been experiencing symptoms of dizziness or lightheadedness. He has not been aware of any new palpitations or extended periods of tachycardia. He states she does occasionally notice a very brief palpitation but this lasts only a few seconds. This is not changed recently. She has not report any dietary indiscretion recently. She cooks her own meals uses very little salt. She has been compliant with her antihypertensive regimen. She does monitor her weights daily and has noted only a 2 or 3 pound increase recently. Her weight tends to vary between 120- 123 pounds. Generally the patient is fairly sedentary. During the cold weather she generally stays in the house. She is able to perform routine activity without significant dyspnea. She generally does not have orthopnea or paroxysmal nocturnal dyspnea. She has not noticed any lower extremity edema or swelling in her hands recently. He states that her blood pressures have generally been good with systolics in the 130s. Past Medical/Surgical History Nonobstructive coronary disease on cardiac catheterization in October 2015 Aortic valve stenosis status post TAVR in November of 2015 Chronic renal insufficiency Diabetes mellitus Hypertension Hyperlipidemia Hypothyroidism Lung nodule History of transudative pleural effusion Diabetic neuropathy Past surgical history Percutaneous aortic valve replacement Appendectomy Breast lumpectomy Cataracts Family History Diabetes mellitus FH: hypertension Heart disease Noncontributory given her advanced age Social History Smoking Status: Never Smoker History of Alcohol Use: No (OCCASIONAL WINE) Currently lives independently Review of Systems Respiratory: + cough, + sputum, + dyspnea on exertion No recent constitutional symptoms such as fevers or chills. All Other Systems: Reviewed and Negative Allergies Coded Allergies: Metformin (Unverified Adverse Reaction, Unknown, ., 09/04/17) Oxycodone (Unverified Adverse Reaction, Unknown, HALLUCINATIONS, 09/04/17) Medications Current Inpatient Medications Medications (Trade) Dose Ordered Sig/David Route Start Time Stop Time Status Last Admin Dose Admin Albuterol (Ventolin Hfa Inhaler) 2 puffs Q4H PRN INH 09/04/17 13:00 10/04/17 12:59 Amlodipine Besylate (Norvasc Tab) 5 mg HS PO 09/04/17 21:00 10/04/17 20:59 09/04/17 20:23 5 MG Aspirin (Ecotrin Tab) 81 mg HS PO 09/05/17 21:00 10/05/17 20:59 Atorvastatin Calcium (Lipitor Tab) 20 mg HS PO 09/04/17 21:00 10/04/17 20:59 09/04/17 20:23 20 MG Cyanocobalamin (Vitamin B-12 Tab) 2,000 mcg DAILY PO 09/05/17 09:00 10/05/17 08:59 09/05/17 08:09 2,000 MCG Diphenoxylate HCl/ Atropine (Lomotil Tab) 1 tab QID PRN PO 09/04/17 13:00 10/04/17 12:59 Insulin Glargine (Lantus Solostar Pen) 10 units QPM SQ 09/04/17 21:00 10/04/17 20:59 09/04/17 20:28 10 UNITS Insulin Glargine (Lantus Solostar Pen) 12 units QAM SQ 09/05/17 09:00 10/05/17 08:59 09/05/17 08:15 12 UNITS Levothyroxine Sodium (Synthroid Tab) 75 mcg DAILYBB PO 09/05/17 06:00 10/05/17 06:59 09/05/17 06:20 75 MCG Multivitamins/ Minerals (Multivitamin W/ Minerals Tab) 1 tab DAILY PO 09/05/17 09:00 10/05/17 08:59 09/05/17 08:09 1 TAB Ropinirole HCl (Requip Tab) 1 mg HS PO 09/04/17 21:00 10/04/17 20:59 09/04/17 20:23 1 MG Enalapril Maleate (Vasotec Tab) 20 mg QAM PO 09/05/17 09:00 10/05/17 08:59 09/05/17 08:09 20 MG Artificial Tears (Artificial Tears) 1 drops QPM OP 09/04/17 21:00 10/04/17 20:59 09/04/17 20:23 1 DROPS Furosemide 20 mg/ Syringe 2 ml @ 4 mls/min Q12 IV 09/04/17 21:00 10/04/17 20:59 09/05/17 08:08 4 MLS/MIN Enoxaparin Sodium (Lovenox Inj) 30 mg Q24H SC 09/05/17 09:00 10/05/17 08:59 09/05/17 08:10 30 MG Acetaminophen (Tylenol Tab) 650 mg Q4H PRN PO 09/04/17 13:00 10/04/17 12:59 Al Hydrox/Mg Hydrox/Simethicone (Maalox Max Susp) 15 ml Q4H PRN PO 09/04/17 13:00 10/04/17 12:59 Magnesium Hydroxide (Milk Of Magnesia Susp) 30 ml Q12H PRN PO 09/04/17 13:00 10/04/17 12:59 Zolpidem Tartrate (Ambien Tab) 5 mg HSZ PRN PO 09/04/17 13:00 10/04/17 12:59 Ondansetron HCl (Zofran Inj) 4 mg Q6H PRN IV 09/04/17 13:00 10/04/17 12:59 Nitroglycerin (Nitrostat Tab) 0.4 mg UD PRN SL 09/04/17 13:00 10/04/17 12:59 Insulin Aspart (novoLOG ASPART) SLIDING SCALE If C... ACHS SC 09/04/17 16:00 10/04/17 15:59 09/05/17 12:08 1 UNITS Glucose (Glucose 40% Gel) 15-30 GRAMS 15 GRAMS... UD PRN PO 09/04/17 13:00 10/04/17 12:59 Glucose (Glucose Chew Tab) 4-8 Tablets 4 Tabl... UD PRN PO 09/04/17 13:00 10/04/17 12:59 Dextrose (Dextrose 50% 50ML Syringe) 25-50ML OF 50% DW IV FOR... UD PRN IV 09/04/17 13:00 10/04/17 12:59 Glucagon (Glucagon Inj) 1 mg UD PRN SQ 09/04/17 13:00 10/04/17 12:59 Albuterol/ Ipratropium (Duoneb) 3 ml QIDR INH 09/04/17 16:00 10/04/17 15:59 09/05/17 15:13 3 ML Ropinirole HCl (Requip Tab) 0.5 mg DAILY PRN PO 09/04/17 19:45 10/04/17 19:44 Physical Exam Vital Signs Past 12 Hours Date Time Temp Pulse Resp B/P (MAP) Pulse Ox O2 Delivery O2 Flow Rate FiO2 09/05/17 15:27 36.3 85 22 147/65 (92) 93 Room Air 09/05/17 15:13 82 16 95 Room Air 09/05/17 12:00 Room Air 09/05/17 11:44 36.5 74 18 124/63 (83) 98 2.0 09/05/17 11:20 74 16 98 Nasal Cannula 2.0 09/05/17 08:16 36.6 74 18 147/61 (89) 97 2.0 09/05/17 08:00 Room Air 09/05/17 07:51 74 16 96 Nasal Cannula 2.0 She is alert and oriented x3. Mood affect appear normal. She answered all questions appropriately. HEENT: Sclerae are anicteric. Pupils are equal and reactive to light and accommodation. Extraocular movements were intact. Neuro: Cranial nerves intact Neck: Examination of the submandibular region did not reveal any significant lymphadenopathy. Carotids are palpable bilaterally and free of bruits on auscultation. There was no evidence of jugular venous distention. The thyroid was not enlarged. Lungs: Mild congestion bilaterally with crackles at the bases. There are no rales wheezes or rhonchi. She has normal respiratory effort without use of accessory muscles. There is normal pulmonary excursion. Cardiac: The rhythm was regular. S1 and S2 were normal. Crescendo de crescendo systolic ejection murmur. The PMI was not markedly displaced on palpation. Abdomen: The abdomen was soft and nontender. Extremities: Patient has bilateral radial pulses that are equal in intensity. There is no evidence cyanosis or clubbing. There was no evidence of significant peripheral edema bilaterally. Skin: There are no rashes noted on examination today. Data Laboratory Results: Last 24 Hours Test 09/04/17 16:31 09/04/17 16:33 09/04/17 17:11 09/04/17 19:17 Bedside Glucose 64 mg/dl 67 mg/dl 162 mg/dl Total Creatine Kinase 128 U/L Troponin I 0.211 ng/ml Test 09/04/17 20:26 09/05/17 02:42 09/05/17 06:39 09/05/17 07:28 Bedside Glucose 116 mg/dl 76 mg/dl Sodium Level 142 mmol/L Potassium Level 4.0 mmol/L Chloride Level 110 mmol/L Carbon Dioxide Level 29 mmol/L Anion Gap 3.0 mmol/L Blood Urea Nitrogen 34 mg/dl Creatinine 1.29 mg/dl Est Creatinine Clear Calc Drug Dose 25.2 ml/min Estimated GFR () 43.7 Estimated GFR (Non- 37.7 BUN/Creatinine Ratio 26.5 Random Glucose 59 mg/dl Calcium Level 8.4 mg/dl Magnesium Level 1.9 mg/dl Total Bilirubin 0.4 mg/dl Aspartate Amino Transf (AST/SGOT) 20 U/L Alanine Aminotransferase (ALT/SGPT) 31 U/L Alkaline Phosphatase 61 U/L Total Creatine Kinase 116 U/L Troponin I 0.227 ng/ml Total Protein 6.1 gm/dl Albumin 2.9 gm/dl Globulin 3.2 gm/dl Albumin/Globulin Ratio 0.9 White Blood Count 7.34 K/uL Red Blood Count 3.80 M/uL Hemoglobin 11.6 g/dL Hematocrit 35.1 % Mean Corpuscular Volume 92.4 fL Mean Corpuscular Hemoglobin 30.5 pg Mean Corpuscular Hemoglobin Concent 33.0 g/dl Platelet Count 279 K/uL Mean Platelet Volume 10.5 fL Neutrophils (%) (Auto) 54.1 % Lymphocytes (%) (Auto) 28.6 % Monocytes (%) (Auto) 9.8 % Eosinophils (%) (Auto) 6.4 % Basophils (%) (Auto) 0.8 % Neutrophils # (Auto) 3.97 K/uL Lymphocytes # (Auto) 2.10 K/uL Monocytes # (Auto) 0.72 K/uL Eosinophils # (Auto) 0.47 K/uL Basophils # (Auto) 0.06 K/uL RDW Standard Deviation 54.8 fL RDW Coefficient of Variation 16.4 % Immature Granulocyte % (Auto) 0.3 % Immature Granulocyte # (Auto) 0.02 K/uL Test 09/05/17 11:31 09/05/17 14:01 Bedside Glucose 132 mg/dl Troponin I 0.186 ng/ml Imaging: Some interstitial thickening on chest x-ray with small bilateral pleural effusions. EKG: Normal sinus rhythm left bundle branch block Telemetry reviewed: Very brief episodes of what appears to be an atrial tachycardia lasting 1-2 seconds. Assessment & Plan 1. Acute diastolic heart failure: Think this is most likely explanation for the patient's symptoms. She does have an element of pulmonary vascular congestion on exam. Her N terminal proBNP was markedly elevated at the time of admission. Her x-ray was consistent with some pulmonary congestion. She has had several admissions for similar symptoms all likely of the same etiology. She is known to have preserved LV systolic function but definitely has an element of diastolic dysfunction. Unclear why she has acute decompensation. There is it is possible that she develops severe hypertension. It is possible that she developed an atrial arrhythmia. Possible that she has an element of occult ischemia. She has had some diuresis since admission but likely requires more aggressive diuresis. I did order another dose of Lasix. 2. Elevated cardiac troponin: Patient is at elevated markers on every admission this year. These are felt to be chronically elevated in the setting of nonobstructive coronary disease. She does not report symptoms consistent with ischemia or coronary insufficiency. However, given her recurrent admissions and persistently elevated markers I think a perfusion study would be reasonable. This is normal I think we can be confident that ischemia is not playing a role in her decompensation. 3. Hypertension: It is possible the patient has transient periods of high blood pressure. She has had her antihypertensive regimen reduced recently. I think she would benefit from the addition of beta-leesa and possibly an increase in her amlodipine. Hopefully more aggressive treatment of high blood pressure may reduce additional episodes of decompensated diastolic heart failure. 4. Diastolic dysfunction: This would be best served by aggressive treatment of her hypertension addition of beta-blockade to her medical regimen. She was already on a low-dose of outpatient diuretic. She may require more diuretic as an outpatient 5. Aortic valve disease: Patient has history of aortic stenosis. Unclear what symptoms she had leading up to her valve replacement but she cannot recall feeling any better subsequent to her TAVR. She is noted to have an element of perivalvular regurgitation that was felt to be mild previously. Do not think this is likely playing a role in her decompensation.
[2017-09-05] MEDS ORDERED: FUROSEMIDE INJ 40 MG in SYRINGE 0 ML IV ONE (17:00)
[2017-09-05] MEDS: ROPINIROLE HCL 1 MG TAB PO PRN (17:14)
[2017-09-05] MEDS: ARTIFICIAL TEARS OP SOLN OP SCH (20:46)
[2017-09-05] MEDS: AMLODIPINE BESYLATE 5 MG TAB PO SCH (20:46)
[2017-09-05] MEDS: ROPINIROLE HCL 1 MG TAB PO SCH (20:46)
[2017-09-05] MEDS: ASPIRIN 81 MG ECTAB PO SCH (20:47)
[2017-09-05] MEDS: METOPROLOL TARTRATE 25 MG TAB PO SCH (20:47)
[2017-09-05] MEDS: ATORVASTATIN 20 MG TAB PO SCH (20:47)
[2017-09-06] VITALS (11 sets, daily range): BP systolic 120–176; BP diastolic 61–86; PULSE 74–93; TEMP 36.6–36.7; O2SAT 92–95
[2017-09-06] MEDS: LEVOTHYROXINE 75 MCG TAB PO SCH ×2 (06:00→11:56)
[2017-09-06 06:38] LABS: HEMATOCRIT 35.4 % (37-47); HEMOGLOBIN 11.8 g/dL (12.0-16.0); MEAN CELL VOLUME 92.7 fL (80-100); MEAN CORPUSCULAR HEMOGLOBIN 30.9 pg (25-34); MEAN CORPUSCULAR HGB CONC 33.3 g/dl (32-36); MEAN PLATELET VOLUME 10.5 fL (7.4-10.4); PLATELET COUNT 290 K/uL (130-400); RED CELL DISTRIBUTION WIDTH CV 16.5 % (11.5-14.5); RED CELL DISTRIBUTION WIDTH SD 55.7 fL (36.4-46.3); WHITE BLOOD COUNT 7.43 K/uL (4.8-10.8)
[2017-09-06] MEDS: INSULIN ASPART 100 UNITS/ML 3 ML PEN SC SCH ×3 (07:00→16:15)
[2017-09-06 07:10] LABS: CALCIUM 8.6 mg/dl (8.5-10.1); CREATININE 1.46 mg/dl (0.60-1.20)
[2017-09-06 07:14] LABS: POTASSIUM 4.2 mmol/L (3.5-5.1)
[2017-09-06] MEDS: ALBUT/IPRATROP 3MG/0.5MG NEB 3 ML VIAL INH SCH ×2 (07:17→19:10)
--- NOTE | 2017-09-06 08:46 | Hospitalist Progress Note ---
Hospitalist Progress Note Date of Service Sep 06, 2017. (Nicole Craig ., AJ-C) Subjective Pt evaluation today including: conversation w/ patient, physical exam, chart review, lab review, review of inpatient medication list Pain: None PO Intake: NPO for perfusion study Voiding: no voiding problems The patient reports feeling anxious about her upcoming perfusion study but otherwise is feeling well. She states that her breathing is improving although she still at times feels short of breath. She is currently off supplemental oxygen. The patient denies fevers, chills, sweats, chest pain, palpitations, claudication, cough, wheezing, nausea, vomiting, abdominal pain, dysuria, hematuria, urinary retention, paralysis, weakness, acute/different numbness and tingling. Additional Comments: See HPI for pertinent positives and negatives. All other systems reviewed and negative. (Nicole Craig ., AJ-C) Objective Vital Signs Date Time Temp Pulse Resp B/P (MAP) Pulse Ox O2 Delivery O2 Flow Rate FiO2 09/06/17 07:29 36.7 74 18 120/64 (82) 92 Room Air 09/06/17 07:17 80 16 92 Room Air 09/06/17 04:00 36.6 77 133/61 (85) 94 Room Air 09/06/17 04:00 94 Nasal Cannula 09/06/17 00:00 93 Nasal Cannula 09/05/17 23:33 36.5 79 18 123/55 (77) 93 Room Air 09/05/17 19:47 77 16 95 Room Air 09/05/17 19:44 36.5 79 18 135/54 (81) 90 Room Air 09/05/17 19:15 Room Air 09/05/17 16:00 Room Air 09/05/17 15:27 36.3 85 22 147/65 (92) 93 Room Air 09/05/17 15:13 82 16 95 Room Air 09/05/17 12:00 Room Air 09/05/17 11:44 36.5 74 18 124/63 (83) 98 2.0 09/05/17 11:20 74 16 98 Nasal Cannula 2.0 (Nicole Craig, AJ-C) Physical Exam Notes: General appearance: Well-developed, well-nourished, no apparent distress Head: Normocephalic, atraumatic Eyes: Normal inspection, PERRL, EOMI ENT: Normal ENT inspection, hearing grossly normal, pharynx normal Neck: Supple, no JVD, trachea midline Respiratory/Chest: +Decreased breath sounds in bases. Lungs clear to auscultation, no respiratory distress Cardiovascular: +Systolic murmur. Regular rate & rhythm, no gallop Abdomen/GI: Normal bowel sounds, non-tender, soft Extremities/Musculoskeletal: Normal inspection, no calf tenderness, no pedal edema Neurological/Psych: Alert, normal mood/affect, oriented x 3 Skin: Normal color, warm/dry, no rash (Nicole Craig ., PA-C) Laboratory Results Last 24 Hours Test 09/05/17 11:31 09/05/17 14:01 09/05/17 16:23 09/05/17 20:12 Bedside Glucose 132 mg/dl 101 mg/dl 125 mg/dl Troponin I 0.186 ng/ml Test 09/06/17 05:58 09/06/17 06:09 Bedside Glucose 81 mg/dl White Blood Count 7.43 K/uL Red Blood Count 3.82 M/uL Hemoglobin 11.8 g/dL Hematocrit 35.4 % Mean Corpuscular Volume 92.7 fL Mean Corpuscular Hemoglobin 30.9 pg Mean Corpuscular Hemoglobin Concent 33.3 g/dl RDW Standard Deviation 55.7 fL RDW Coefficient of Variation 16.5 % Platelet Count 290 K/uL Mean Platelet Volume 10.5 fL Sodium Level 142 mmol/L Potassium Level 4.2 mmol/L Chloride Level 105 mmol/L Carbon Dioxide Level 27 mmol/L Anion Gap 10.0 mmol/L Blood Urea Nitrogen 37 mg/dl Creatinine 1.46 mg/dl Est Creatinine Clear Calc Drug Dose 22.3 ml/min Estimated GFR () 37.6 Estimated GFR (Non- 32.5 BUN/Creatinine Ratio 25.3 Random Glucose 77 mg/dl Calcium Level 8.6 mg/dl (Nicole Craig ., PA-C) Assessment and Plan 86 y/o female with a history of HTN, HLD, s/p TAVR, diastolic CHF, DM II, hypothyroidism, neuropathy and periodic limb movement disorder who presents with shortness of breath and PND. Acute on chronic diastolic CHF--improving -Admit to telemetry. Pt mostly in sinus rhythm with HR 70s-80s, but does have occasional runs of atrial tachycardia. Asymptomatic. -Lasix 20 IV BID. Pt only takes Lasix 20 mg PO qd at home -UO 2500, net balance -1625 cc on 09/05 -Monitor I's & O's, daily weights -Troponin stable, slightly elevated around 0.2 which is chronic -Consult cardiology, appreciate recs: Unclear cause of acute CHF decompensation. Given persistent elevated markers, will do perfusion study to assess for occult ischemia. More aggressive treatment of HTN may reduce additional episodes of decompensated diastolic heart failure, will add metoprolol. May require increase in amlodipine. May need to increase outpatient Lasix as well. -DuoNebs QIDR, change to prn SOB/wheezing -NPO for Lexiscan -Lopressor 12.5 mg PO BID. BP improved this morning. HTN, HLD, s/p TAVR--stable -Continue ASA, Norvasc 5 mg PO qd, enalapril 20 mg PO qd, beta leesa as above DM II--HgbA1c 6.9 on 07/23/17 -Lantus 12 units SC qam and 10 units SC qpm -Insulin sliding scale -Check BSGs q ac and qhs Hypothyroidism -Continue Synthroid 75 mcg PO qd Neuropathy, periodic limb movement disorder -Continue Requip 1 mg PO hs and 0.5 mg PO daily prn DVT prophylaxis -Enoxaparin 30 mg SC q24h Code Status -Level I, FULL RESUSCITATION STATUS (Nicole Craig ., PA-C) Supervising Note Dr. Davies I performed a history and physical examination on the patient. I reviewed above note and agree with it. I discussed plan with APC and patient. During my face to face encounter with the patient, I answered all of the patient's questions. (Milind Davies M.D.)
[2017-09-06] MEDS: INSULIN GLARGINE SOLOSTAR 100 UNITS/ML 3 ML PEN SQ SCH (09:00)
[2017-09-06] MEDS ORDERED: REGADENOSON 0.4 MG/5 ML SYR ONE (09:40)
[2017-09-06] MEDS: CEROVITE ADV FORMULA TAB PO SCH (11:56)
[2017-09-06] MEDS: CYANOCOBALAMIN 500 MCG TAB (VIT B-12) PO SCH (11:56)
[2017-09-06] MEDS: ENALAPRIL MALEATE 10 MG TAB PO SCH (11:56)
[2017-09-06] MEDS: FUROSEMIDE INJ 20 MG in SYRINGE 0 ML IV SCH (11:57)
[2017-09-06] MEDS: METOPROLOL TARTRATE 25 MG TAB PO SCH ×2 (11:57→19:36)
[2017-09-06] MEDS: ENOXAPARIN 30 MG/0.3 ML SYR SC SCH (11:58)
[2017-09-06] MEDS: ROPINIROLE HCL 1 MG TAB PO PRN (12:00)
[2017-09-06] MEDS ORDERED: ALBUT/IPRATROP 3MG/0.5MG NEB 3 ML VIAL INH SCH (12:00)
[2017-09-06] MEDS ORDERED: ALBUT/IPRATROP 3MG/0.5MG NEB 3 ML VIAL INH PRN (12:00)
[2017-09-06] MEDS ORDERED: LPR25 PO (15:59)
--- NOTE | 2017-09-06 16:05 | Myocardial Perfusion Study ---
Myocardial Perfusion Study Rpt Myocardial Perfusion Study Rpt Date of Service 09/06/2017 Myocardial Perfusion Study Rpt Procedure: 1. Myocardial perfusion study performed in multiple views/images 2. Lexiscan pharmacologic stress ECG Indications: 1. CHF Consent: Informed written consent was obtained prior to the procedure. Ordering physician: Dr. Mejía Procedural details: For the stress portion of the study, Lexiscan 0.4 mg was intravenously administered followed by a saline flush. This was followed by 32 mCi of technetium 99m Cardiolite, injected at 10:39 a.m. on 09/06/2017. 30 minutes following the injection, imaging of the heart was performed in multiple projections. For the rest portion of the study, 10.08 mCi technetium 99m Cardiolite was injected intravenously at 9:05 a.m. on 09/06/2017. 1 hour following the injection, imaging of the heart was performed in the same projections. Lexiscan stress ECG: Resting ECG demonstrated: Sinus rhythm at 77 bpm. LBBB. Maximum heart rate: 93 bpm Resting blood pressure: 143/56 mmHg Maximum blood pressure: 146/64 mmHg Maximal, age-predicted heart rate: 68 % Significant ST changes: None Arrhythmia: None Symptoms: No chest pain Findings: Rotating raw imaging demonstrated no significant lung uptake. There is no significant motion artifact. Heart size appeared normal. Myocardial perfusion demonstrated a small area of mildly reduced uptake involving the mid to distal inferior wall and apex, which was fixed in post stress and rest imaging. There was also intestinal uptake noted along the inferior wall in post stress and rest imaging. There were no significant reversible defects to suggest ischemia. Ejection fraction: 52 % Wall motion: Mid to distal anteroseptum appears hypokinetic. Otherwise, wall motion appeared normal. No significant transient ischemic dilation. Impression: 1. No significant ischemic changes suggested. 2. Mid to distal inferior and apical fixed defects may represent attenuation artifact given normal wall motion in those segments; cannot rule out small infarct. 3. Hypokinesis of the mid to distal anteroseptum. 4. Indeterminate Lexiscan ECG due to LBBB. 5. No arrhythmia. 6. Normal left ventricular systolic function.
--- NOTE | 2017-09-06 16:07 | Discharge Instructions ---
Discharge Instructions Date of Service Sep 06, 2017. Admission Reason for Admission: Acute Congestive Heart Failure Discharge Discharge Diagnosis / Problem: Acute on chronic diastolic congestive heart failure Discharge Goals Goal(s): Decrease discomfort, Improve function, Diagnostic testing, Therapeutic intervention Activity Recommendations Activity Limitations: resume your previous activity (as tolerated) . Instructions / Follow-Up Instructions / Follow-Up You were admitted after presenting to the hospital with shortness of breath. You were found to be in an acute exacerbation of your chronic diastolic congestive heart failure. It is unclear why you are quickly decompensating at home, so cardiology was consulted. A new medication called a beta leesa was added to your regimen to help improve your diastolic dysfunction as well as your blood pressure, which will hopefully prevent this from happening as often. You will follow up closely with cardiology to see if more changes need to be made to your home regimen. A nuclear stress test was also done to assess for any "silent" ischemic changes that may be contributing, but this was negative. Medications: *Please take metoprolol tartrate 12.5 mg (half tablet) by mouth twice a day. *Continue your home medications as prescribed. Follow up: *You will be scheduled for a follow up appointment with your primary care provider as well as with Dr. Mejía, your ice delivery driver. Please seek medical attention if you experience fevers, chills, sweats, dizziness/lightheadedness, loss of consciousness, chest pain, shortness of breath, nausea, vomiting, numbness or tingling. Call 911 and go to the Emergency Room if: * You have tightness or pain in your chest that does not go away with rest or Nitroglycerin * You are very short of breath even with rest Call your doctor if any of the following symptoms or problems start or get worse: * Shortness of breath or difficulty breathing * Wake up at night short of breath * Chest pain * Cough * Swelling of your hands, fee, or legs * More fatigued or tired with your normal activity * Palpitations - sudden fast heart beats WEIGHT * Weigh yourself every morning after using the bathroom. * Use the same scale. * Wear the same amount of clothing. * Write your weight down on your chart. * Call your doctor if you gain more than 2-3 pounds in 1-2 days. MEDICATIONS * Use this discharge instruction sheet for instructions. * Take your medications at the time your doctor ordered. * Do not skip a dose of your medicines. * If you miss a dose of medicine, take as soon as possible, but DO NOT DOUBLE A DOSE. * Read your medicine information when you get home. * Know all of the side effects of your medicine. * Call your doctor's office if you have any side effects. * Be sure all of your doctors know what medicine and herbs you take (including cold, flu, and herbal medicine). * Pain Medicine: If you do not get relief from your pain, please call your doctor for help. Take the following with you to your follow-up doctor appointments: * Weight Chart * Medication List * List of questions Do not drink excessive alcohol, beer or wine. Current Hospital Diet Patient's current hospital diet: AHA Diet (Heart Healthy), Diabetes Type 2 Diet Discharge Diet Recommended Diet: AHA Diet (Heart Healthy), Low Sodium Diet (2gm Na), Diabetes Type 2 Diet Pending Studies Studies pending at discharge: no Laboratory Results Hemoglobin A1c Test 07/23/17 07:00 Range/Units Estimated Average Glucose 151 mg/dl Hemoglobin A1c 6.9 H 4.5-5.6 % Lipid Panel Test 09/04/17 14:40 Range/Units Triglycerides Level 83 0-150 mg/dl Cholesterol Level 147 0-200 mg/dl HDL Cholesterol 54 mg/dl Cholesterol/HDL Ratio 2.7 LDL Cholesterol, Calculated 76 mg/dl Medical Emergencies . Who to Call and When: Medical Emergencies: If at any time you feel your situation is an emergency, please call 911 immediately. . Non-Emergent Contact Non-Emergency issues call your: Primary Care Provider, Hand Fabric Cutter Call Non-Emergent contact if: you have a fever, you have any medication questions . Past History Medical & Surgical History: (1) Acute diastolic heart failure . "Provider Documentation" section prepared by Nicole Craig. . VTE Core Measure Inpt VTE Proph given/why not?: Enoxaparin (Lovenox)SQ
--- NOTE | 2017-09-06 16:15 | Discharge Summary ---
Discharge Summary Date of Service Sep 06, 2017. Discharge Summary Admission Date: Sep 04, 2017 at 13:01 Discharge Date: Sep 06, 2017 Discharge Disposition: Home Principal Diagnosis: Acute on chronic diastolic CHF Problems/Secondary Diagnoses: HTN, HLD, s/p TAVR, diastolic CHF, DM II, hypothyroidism, neuropathy, periodic limb movement disorder Procedures: CHEST 2 VIEWS ROUTINE CLINICAL HISTORY: Shortness of breath, respiratory distress. COMPARISON STUDY: 08/19/2017 FINDINGS: The cardiac and mediastinal contours remain stable. Aortic valve prosthesis is again visualized. Surgical clips are visualized within the right paratracheal region. There is a 16 mm right perihilar nodule. There are small pleural effusions. There is improving aeration of the left lower lobe. There is mild interstitial thickening.[ IMPRESSION: 1. Persistent mild interstitial thickening/edema 2. Small bilateral pleural effusions 3. Improving aeration of the left lower lobe 4. 16 mm right perihilar nodule Myocardial Perfusion Study Rpt Date of Service 09/06/2017 Myocardial Perfusion Study Rpt Procedure: 1. Myocardial perfusion study performed in multiple views/images 2. Lexiscan pharmacologic stress ECG Indications: 1. CHF Consent: Informed written consent was obtained prior to the procedure. Ordering physician: Dr. Mejía Procedural details: For the stress portion of the study, Lexiscan 0.4 mg was intravenously administered followed by a saline flush. This was followed by 32 mCi of technetium 99m Cardiolite, injected at 10:39 a.m. on 09/06/2017. 30 minutes following the injection, imaging of the heart was performed in multiple projections. For the rest portion of the study, 10.08 mCi technetium 99m Cardiolite was injected intravenously at 9:05 a.m. on 09/06/2017. 1 hour following the injection, imaging of the heart was performed in the same projections. Lexiscan stress ECG: Resting ECG demonstrated: Sinus rhythm at 77 bpm. LBBB. Maximum heart rate: 93 bpm Resting blood pressure: 143/56 mmHg Maximum blood pressure: 146/64 mmHg Maximal, age-predicted heart rate: 68 % Significant ST changes: None Arrhythmia: None Symptoms: No chest pain Findings: Rotating raw imaging demonstrated no significant lung uptake. There is no significant motion artifact. Heart size appeared normal. Myocardial perfusion demonstrated a small area of mildly reduced uptake involving the mid to distal inferior wall and apex, which was fixed in post stress and rest imaging. There was also intestinal uptake noted along the inferior wall in post stress and rest imaging. There were no significant reversible defects to suggest ischemia. Ejection fraction: 52 % Wall motion: Mid to distal anteroseptum appears hypokinetic. Otherwise, wall motion appeared normal. No significant transient ischemic dilation. Impression: 1. No significant ischemic changes suggested. 2. Mid to distal inferior and apical fixed defects may represent attenuation artifact given normal wall motion in those segments; cannot rule out small infarct. 3. Hypokinesis of the mid to distal anteroseptum. 4. Indeterminate Lexiscan ECG due to LBBB. 5. No arrhythmia. 6. Normal left ventricular systolic function. Consultations: Cardiology Medication Reconciliation New Medications: Metoprolol Tartrate (Lopressor) 25 Mg Tab 12.5 MG PO BID for 30 Days, #30 TAB Continued Medications: Albuterol Hfa (Ventolin Hfa) 200 Puffs/65288 Mcg Aers 2 PUFFS INH Q4H PRN for SOB/Wheezing, INHALER Amlodipine (Norvasc) 5 Mg Tab 5 MG PO HS Aspirin (Aspirin Ec) 81 Mg Tab 81 MG PO HS Atorvastatin (Lipitor) 20 Mg Tab 20 MG PO HS, TAB Benazepril (Lotensin) 40 Mg Tab 20 MG PO DAILY 1/2 TABLET DOSE Bromfenac Sodium (Ophth) (Prolensa) 0.07 % Gladys 1 DROP OPB QAM Cholecalciferol (D 1000) 1,000 Unit Cap 2000 UNITS PO DAILY Cyanocobalamin (Vitamin B-12 1000 Mcg) 1,000 Mcg Tab 2000 MCG PO DAILY, TAB Diphenoxylate/Atropine (Lomotil 2.5-0.025 mg) 1 Ea Tab 1 TAB PO QID for Diarrhea, TAB Furosemide (Lasix) 20 Mg Tab 20 MG PO DAILY, TAB Insulin Glargine (Lantus Solostar) 100 Unit/Ml Inj 12 UNITS SQ QAM, PEN Insulin Glargine (Lantus Solostar) 100 Unit/Ml Inj 10 UNITS SQ QPM, PEN Levothyroxine Sodium (Levothyroxine Sodium) 75 Mcg Tab 75 MCG PO DAILY, TAB Multiple Vitamins W/ Minerals (Icaps) 1 Cap Cap 1 CAP PO DAILY Ocuvite Preservision (Ocuvite Preservision) 1 Tab Tab 1 TAB PO DAILY, TAB Polyethylene Glycol-Propylene (Systane) 1 Gladys Gladys 1 DROPS OP QPM, ML Ropinirole (Requip) 1 Mg Tab 1 MG PO HS, TAB Discharge Exam The patient reports feeling anxious about her upcoming perfusion study but otherwise is feeling well. She states that her breathing is improving although she still at times feels short of breath. She is currently off supplemental oxygen. The patient denies fevers, chills, sweats, chest pain, palpitations, claudication, cough, wheezing, nausea, vomiting, abdominal pain, dysuria, hematuria, urinary retention, paralysis, weakness, acute/different numbness and tingling. Constitutional: No fever, No chills, No sweats Eyes: No worsening of vision, No eye pain, No diplopia ENT: No hearing loss, No nasal symptoms, No trouble swallowing Respiratory: +Intermittent SOB. No cough, No wheezing Cardiovascular: No chest pain, No claudication, No palpitations Abdomen: No pain, No nausea, No vomiting Musculoskeletal: No joint pain, No muscle pain, No swelling Genitourinary - Female: No dysuria, No urinary retention, No hematuria Neurologic: No paralysis, No weakness, No numbness/tingling Integumentary: No rash, No itch, No color change General appearance: Well-developed, well-nourished, no apparent distress Head: Normocephalic, atraumatic Eyes: Normal inspection, PERRL, EOMI ENT: Normal ENT inspection, hearing grossly normal, pharynx normal Neck: Supple, no JVD, trachea midline Respiratory/Chest: +Decreased breath sounds in bases. Lungs clear to auscultation, no respiratory distress Cardiovascular: +Systolic murmur. Regular rate & rhythm, no gallop Abdomen/GI: Normal bowel sounds, non-tender, soft Extremities/Musculoskeletal: Normal inspection, no calf tenderness, no pedal edema Neurological/Psych: Alert, normal mood/affect, oriented x 3 Skin: Normal color, warm/dry, no rash Hospital Course 86 y/o female with a history of HTN, HLD, s/p TAVR, diastolic CHF, DM II, hypothyroidism, neuropathy and periodic limb movement disorder who presents with shortness of breath and PND. Acute on chronic diastolic CHF--improving -Admit to telemetry. Pt mostly in sinus rhythm with HR 70s-80s, very brief run of atrial tach (few beats), asymptomatic -Lasix 20 IV BID. Pt only takes Lasix 20 mg PO qd at home, resume this on discharge. May need to increase as outpt -UO 2500, net balance -1625 cc on 09/05 -Monitor I's & O's, daily weights -Troponin stable, slightly elevated around 0.2 which is chronic -Consult cardiology, appreciate recs: Spoke to Dr. Mejía. Will hold off on increasing home dose of Lasix for now, see how beta leesa helps and follow up outpatient. If perfusion study negative, pt can be discharged. -DuoNebs QIDR, change to prn SOB/wheezing -Lexiscan no ischemic changes. Mid to distal inferior and apical fixed defects likely represent attenuation artifact but cannot rule out small infarct. -Lopressor 12.5 mg PO BID. BP improved this morning. HTN, HLD, s/p TAVR--stable -Continue ASA, Norvasc 5 mg PO qd, enalapril 20 mg PO qd, beta leesa as above DM II--HgbA1c 6.9 on 07/23/17 -Lantus 12 units SC qam and 10 units SC qpm -Insulin sliding scale -Check BSGs q ac and qhs Hypothyroidism -Continue Synthroid 75 mcg PO qd Neuropathy, periodic limb movement disorder -Continue Requip 1 mg PO hs and 0.5 mg PO daily prn DVT prophylaxis -Enoxaparin 30 mg SC q24h Code Status -Level I, FULL RESUSCITATION STATUS Dispo -D/C to home -F/u with PCP and Dr. Mejía Supervising Note Dr. Davies I performed a history and physical examination on the patient. I reviewed above note and agree with it. I discussed plan with APC and patient. During my face to face encounter with the patient, I answered all of the patient's questions. Total Time Spent: Greater than 30 minutes This includes examination of the patient, discharge planning, medication reconciliation, and communication with other providers. Discharge Instructions Please refer to the electronic Patient Visit Report (Discharge Instructions) for additional information. Additional Copies To Lottie Winn MD
--- NOTE | 2017-09-06 17:08 | Cardiology Follow-Up ---
Subjective Date of Service: Sep 06, 2017. Pt evaluation today including: conversation w/ patient, physical exam, chart review, lab review, review of studies, review of inpatient medication list, conversation w/ attending History of Present Illness This morning the patient claims to be feeling better. She is tired and has difficulty sleeping in the hospital. She states that her breathing is much improved but not yet back to baseline. She has some mild dyspnea with exertion. Social History Smoking Status: Never Smoker History of Alcohol Use: No (OCCASIONAL WINE) Review of Systems Respiratory: + cough, + sputum, + dyspnea on exertion No recent constitutional symptoms such as fevers or chills. Objective Vital Signs Past 12 Hours Date Time Temp Pulse Resp B/P (MAP) Pulse Ox O2 Delivery O2 Flow Rate FiO2 09/06/17 16:00 95 Room Air 09/06/17 14:58 36.6 78 16 146/65 (92) 94 Room Air 09/06/17 14:20 80 16 92 Room Air 09/06/17 12:00 36.7 93 18 154/73 (100) 94 Room Air 09/06/17 12:00 94 Room Air 09/06/17 08:00 92 Room Air 09/06/17 07:29 36.7 74 18 120/64 (82) 92 Room Air 09/06/17 07:17 80 16 92 Room Air Last Recorded Weight-Kilograms: 54.400 Physical Exam She is alert and oriented x3. Mood affect appear normal. She answered all questions appropriately. HEENT: Sclerae are anicteric. Pupils are equal and reactive to light and accommodation. Extraocular movements were intact. Neuro: Cranial nerves intact Neck: Examination of the submandibular region did not reveal any significant lymphadenopathy. Carotids are palpable bilaterally and free of bruits on auscultation. There was no evidence of jugular venous distention. The thyroid was not enlarged. Lungs: Lungs are clear currently. There are no rales wheezes or rhonchi. She has normal respiratory effort without use of accessory muscles. There is normal pulmonary excursion. Cardiac: The rhythm was regular. S1 and S2 were normal. Crescendo de crescendo systolic ejection murmur. The PMI was not markedly displaced on palpation. Abdomen: The abdomen was soft and nontender. Extremities: Patient has bilateral radial pulses that are equal in intensity. There is no evidence cyanosis or clubbing. There was no evidence of significant peripheral edema bilaterally. Skin: There are no rashes noted on examination today. Data Laboratory Results: Last 24 Hours Test 09/05/17 20:12 09/06/17 05:58 09/06/17 06:09 09/06/17 11:54 Bedside Glucose 125 mg/dl 81 mg/dl 88 mg/dl White Blood Count 7.43 K/uL Red Blood Count 3.82 M/uL Hemoglobin 11.8 g/dL Hematocrit 35.4 % Mean Corpuscular Volume 92.7 fL Mean Corpuscular Hemoglobin 30.9 pg Mean Corpuscular Hemoglobin Concent 33.3 g/dl RDW Standard Deviation 55.7 fL RDW Coefficient of Variation 16.5 % Platelet Count 290 K/uL Mean Platelet Volume 10.5 fL Sodium Level 142 mmol/L Potassium Level 4.2 mmol/L Chloride Level 105 mmol/L Carbon Dioxide Level 27 mmol/L Anion Gap 10.0 mmol/L Blood Urea Nitrogen 37 mg/dl Creatinine 1.46 mg/dl Est Creatinine Clear Calc Drug Dose 22.3 ml/min Estimated GFR () 37.6 Estimated GFR (Non- 32.5 BUN/Creatinine Ratio 25.3 Random Glucose 77 mg/dl Calcium Level 8.6 mg/dl Imaging: Cardiac perfusion scan did not reveal any evidence of reversible ischemia. Telemetry reviewed: Very brief episodes of atrial tachycardia lasting 1-2 seconds but no other sustained arrhythmia. Assessment and Plan 1. Acute diastolic heart failure: Her exam is symptoms are much improved. The etiology of her decompensation is unclear. Her perfusion imaging today did not reveal any evidence of ischemia and she had normal angiography 2 years ago prior to her valve replacement. She never describe symptoms of angina or chest pain. Possible that she has an occult arrhythmia that we have yet to identify. She also may have transient elevations in her blood pressure. She has been started on beta-blockade. She may require more aggressive dosing of her diuretic regimen on an outpatient basis. However, she does keep track of her weights and there is not appear to be a significant derangement prior to these episodes. 2. Elevated cardiac troponin: She appears to have chronic elevated biomarkers. No evidence of reversible ischemia on her perfusion study performed today. 3. Hypertension: She would likely more aggressive treatment. Started on a beta -leesa during this hospitalization.. 4. Diastolic dysfunction: This would be best served by aggressive treatment of her hypertension addition of beta-blockade to her medical regimen. She was already on a low-dose of outpatient diuretic. She may require more diuretic as an outpatient 5. Aortic valve disease: Patient has history of aortic stenosis. Unclear what symptoms she had leading up to her valve replacement but she cannot recall feeling any better subsequent to her TAVR. She is noted to have an element of perivalvular regurgitation that was felt to be mild previously. Do not think this is likely playing a role in her decompensation.
[2017-09-06] MEDS: ATORVASTATIN 20 MG TAB PO SCH (19:34)
[2017-09-06] MEDS: ASPIRIN 81 MG ECTAB PO SCH (19:35)
[2017-09-06] MEDS: AMLODIPINE BESYLATE 5 MG TAB PO SCH (19:35)
[2017-09-06] MEDS: ROPINIROLE HCL 1 MG TAB PO SCH (19:36)
== END 2017-09-06 19:56 | disposition home or self-care (01) | DRG 291 ==
LOC: C.EDB 07:23 → C.2T 13:01 → ENRESERV 15:43
PROVIDERS: ADMIT Internal Medicine; ATTEND Internal Medicine
DX: I13.0 Hypertensive heart and chronic kidney disease with heart failure and stage 1 through stage 4 chronic kidney disease, or unspecified chronic kidney disease (principal); I50.33 Acute on chronic diastolic (congestive) heart failure; J44.1 Chronic obstructive pulmonary disease with (acute) exacerbation; N18.3 Chronic kidney disease, stage 3 (moderate); R91.1 Solitary pulmonary nodule; E11.22 Type 2 diabetes mellitus with diabetic chronic kidney disease; E03.9 Hypothyroidism, unspecified; E11.40 Type 2 diabetes mellitus with diabetic neuropathy, unspecified; G47.61 Periodic limb movement disorder; E78.5 Hyperlipidemia, unspecified; Z51.81 Encounter for therapeutic drug level monitoring; Z79.899 Other long term (current) drug therapy; Z79.4 Long term (current) use of insulin; Z79.82 Long term (current) use of aspirin; Z95.2 Presence of prosthetic heart valve; Z83.3 Family history of diabetes mellitus; Z82.49 Family history of ischemic heart disease and other diseases of the circulatory system

== ENCOUNTER → 2017-09-11 | Outpatient (CLI) | payer BC ==
[~2017-09-11] MED LIST changes: +LPR25 PO; -PRVHFAIN INH; +VNTHFA/IN INH
--- NOTE | 2017-09-11 10:16 | DIAGNOSTIC IMAGING REPORT ---
CHEST 2 VIEWS ROUTINE HISTORY: J90 Pleural [id number] COMPARISON: Chest 09/04/2017. FINDINGS: The heart remains mildly enlarged. There is an aortic valve prosthesis. Surgical clips overlying the right hilum. Emphysema. Small bilateral pleural effusions have slightly increased in size. Bibasilar linear densities. Perihilar interstitial and vascular thickening suggestive mild congestive change. A 1.7 cm right midlung zone nodule is again noted. IMPRESSION: 1. Slight progression of the mild congestive change and small bilateral pleural effusions. 2. A 1.7 cm right midlung zone nodule is again noted. Electronically signed by: Noah Alatorre M.D. 09/11/2017 10:15 AM Dictated Date/Time: 09/11/2017 10:13 AM
[2017-09-11 13:41] LABS: BASO % 0.3 %; BASO ABS # 0.03 K/uL (0-0.2); EOS % 8.6 %; EOS ABS # 0.74 K/uL (0-0.5); HEMATOCRIT 36.3 % (37-47); HEMOGLOBIN 11.8 g/dL (12.0-16.0); IG# 0.02 K/uL (0.00-0.02); LYMPH % 23.8 %; LYMPH ABS # 2.05 K/uL (1.2-3.4); MEAN CELL VOLUME 95.8 fL (80-100); MEAN CORPUSCULAR HEMOGLOBIN 31.1 pg (25-34); MEAN CORPUSCULAR HGB CONC 32.5 g/dl (32-36); MEAN PLATELET VOLUME 11.1 fL (7.4-10.4); MONO % 8.8 %; MONO ABS # 0.76 K/uL (0.11-0.59); NEUT % 58.3 %; NEUT ABS # 5.01 K/uL (1.4-6.5); PLATELET COUNT 319 K/uL (130-400); RED CELL DISTRIBUTION WIDTH CV 16.9 % (11.5-14.5); RED CELL DISTRIBUTION WIDTH SD 59.4 fL (36.4-46.3); WHITE BLOOD COUNT 8.61 K/uL (4.8-10.8)
[2017-09-11 14:31] LABS: BLOOD UREA NITROGEN 44 mg/dl (7-18); CALCIUM 8.7 mg/dl (8.5-10.1); CARBON DIOXIDE 24 mmol/L (21-32); CREATININE 1.31 mg/dl (0.60-1.20); GLUCOSE 104 mg/dl (70-99); POTASSIUM 4.4 mmol/L (3.5-5.1); SODIUM 143 mmol/L (136-145)
== END | disposition home or self-care (01) ==
LOC: C.LABBC 09:30
PROVIDERS: ATTEND Nurse Practitioner Adult Health
DX: J90 Pleural effusion, not elsewhere classified (principal); R91.1 Solitary pulmonary nodule; N18.9 Chronic kidney disease, unspecified; R53.83 Other fatigue

== ENCOUNTER 2017-09-27 11:23 | Emergency (ER) | payer BC ==
[~2017-09-27] VITALS: Ht 157.5 cm; Wt 56.3 kg
[2017-09-27 11:25] VITALS: TEMP 36.3; Ht 157.5 cm; Wt 56.3 kg
[2017-09-27 11:44] VITALS: O2SAT 96
[2017-09-27] MEDS ORDERED: DPH/ PO (12:19)
[2017-09-27] MEDS ORDERED: IPRA1AER2 INH (12:19)
[2017-09-27] MEDS ORDERED: MELO7.5T5 PO (12:19)
--- NOTE | 2017-09-27 12:46 | EMERGENCY ROOM VISIT NOTE ---
History Report prepared by Sumeet: Jed Majano Under the Supervision of: Dr. Gunjan Shepard M.D. First contact with patient: 12:32 Chief Complaint: RESPIRATORY PROBLEMS Stated Complaint: BREATHING Nursing Triage Summary: Patient c/o SOB that is not improving. Patient denies CP, N/V/D. History of Present Illness The patient is an 86 year old female who presents to the Emergency Room with complaints of persistent shortness of breath that the patient has chronically. The patient has been to the emergency department 5 times for shortness of breath issues and has been admitted multiple times. She does follow with pulmonology and cardiology. The patient's daughter states that her oxygen level seemed to be dropping today, and her home nurse found that she was 89% on room air yesterday. She has inhalers at home, but has not qualified for home oxygen at this time. She denies any associated chest pain, and that her shortness of breath is not worsened with walking around or laying flat. Source of History: patient Onset: chronic Position: other (Respiratory) Quality: other (SOB) Timing: worsening Associated Symptoms: No chest pain Review of Systems See HPI for pertinent positives & negatives. A total of 10 systems reviewed and were otherwise negative. Past Medical & Surgical Medical Problems: (1) Acute congestive heart failure (2) Acute diastolic heart failure (3) Acute respiratory failure with hypoxia (4) chf exac, pna (5) Hypertension (6) Insulin dependent diabetes mellitus (7) Neuropathy (8) Upper respiratory infection, acute Surgical Problems: (1) Aortic valve replaced (2) S/P TAVR (transcatheter aortic valve replacement) Family History Diabetes mellitus FH: hypertension Heart disease Social History Smoking Status: Never Smoker Drug Use: none Marital Status: Occupation Status: retired Current/Historical Medications Scheduled Amlodipine (Norvasc), 5 MG PO HS Aspirin (Aspirin Ec), 81 MG PO HS Atorvastatin (Lipitor), 20 MG PO HS Benazepril (Lotensin), 20 MG PO DAILY Bromfenac Sodium (Ophth) (Prolensa), 1 DROP OPB QAM Cholecalciferol (D 1000), 2,000 UNITS PO DAILY Cyanocobalamin (Vitamin B-12 1000 Mcg), 2,000 MCG PO DAILY Diphenoxylate/Atropine (Lomotil 2.5-0.025 mg), 1 TAB PO BID Furosemide (Lasix), 20 MG PO DAILY Insulin Glargine (Lantus Solostar), 12 UNITS SQ QAM Insulin Glargine (Lantus Solostar), 10 UNITS SQ QPM Levothyroxine Sodium (Levothyroxine Sodium), 75 MCG PO DAILY Meloxicam (Mobic), 7.5 MG PO DAILY Metoprolol Tartrate (Lopressor), 12.5 MG PO BID Multiple Vitamins W/ Minerals (Icaps), 1 CAP PO DAILY Ocuvite Preservision (Ocuvite Preservision), 1 TAB PO DAILY Polyethylene Glycol-Propylene (Systane), 1 DROPS OP QPM Ropinirole (Requip), 1 MG PO HS Scheduled PRN Ipratropium-Albuterol (Combivent Respimat), 1 PUFFS INH QID PRN for SOB/Wheezing Allergies Coded Allergies: Metformin (Unverified Adverse Reaction, Unknown, ., 09/27/17) Oxycodone (Unverified Adverse Reaction, Unknown, HALLUCINATIONS, 09/27/17) Physical Exam Vital Signs Date Time Temp Pulse Resp B/P (MAP) Pulse Ox O2 Delivery O2 Flow Rate FiO2 09/27/17 17:07 75 18 151/67 95 09/27/17 15:14 86 Room Air 09/27/17 14:28 69 18 147/58 95 Room Air 09/27/17 13:19 68 18 154/54 96 Nasal Cannula 2.0 09/27/17 12:13 57 09/27/17 11:58 95 Nasal Cannula 2.0 09/27/17 11:44 96 Nasal Cannula 2.0 09/27/17 11:44 96 Nasal Cannula 2.0 09/27/17 11:25 36.3 65 20 139/54 87 Room Air Physical Exam Vital signs reviewed. General: Well-appearing elderly female, in no significant distress. HEENT: No scleral icterus, PERRLA, neck supple. Atraumatic. Cardiovascular: Regular rate and rhythm, no extra sounds. Pulmonary: Crackles are present to auscultation bilaterally, left is greater than the right normal work of breathing. Abdomen: Soft, nontender, nondistended, positive bowel sounds. Musculoskeletal: Atraumatic, no peripheral edema. Neurologic: Patient awake alert and oriented x 3. Skin: Warm, dry, no rash Medical Decision & Procedures ER Provider Diagnostic Interpretation: Radiology results as stated below per my review and radiologist interpretation: CHEST 2 VIEWS ROUTINE CLINICAL HISTORY: SOB, hypoxia dyspnea COMPARISON STUDY: 09/11/2017 FINDINGS: Mildly progressive bibasilar parenchymal infiltrates. Components of congestive failure persist. Mildly improved nodularity right midlung. Moderate cardiomegaly. Pulmonary apices are clear. IMPRESSION: Mildly progressive bibasilar parenchymal infiltrates. Underlying components of mild congestive failure stable from the prior exam. The above report was generated using voice recognition software. It may contain grammatical, syntax or spelling errors. Electronically signed by: Moose Diego M.D. 09/27/2017 1:17 PM Dictated Date/Time: 09/27/2017 1:15 PM Laboratory Results 09/27/17 11:40 Red Blood Count 4.14, Mean Corpuscular Volume 94.7, Mean Corpuscular Hemoglobin 31.2, Mean Corpuscular Hemoglobin Concent 32.9, Mean Platelet Volume 11.2, Neutrophils (%) (Auto) 62.4, Lymphocytes (%) (Auto) 24.9, Monocytes (%) (Auto) 7.5, Eosinophils (%) (Auto) 4.5, Basophils (%) (Auto) 0.5, Neutrophils # (Auto) 6.45, Lymphocytes # (Auto) 2.57, Monocytes # (Auto) 0.77, Eosinophils # (Auto) 0.46, Basophils # (Auto) 0.05 09/27/17 11:40 Test 09/27/17 00:00 09/27/17 11:40 Pleural Fluid Total Protein 1.4 g/dl Pleural Fluid LDH 74 IU Pleural Fluid Glucose 93 mg/dl Pleural Fluid Amylase 16 U/L White Blood Count 10.32 K/uL (4.8-10.8) Red Blood Count 4.14 M/uL (4.2-5.4) Hemoglobin 12.9 g/dL (12.0-16.0) Hematocrit 39.2 % (37-47) Mean Corpuscular Volume 94.7 fL (80-100) Mean Corpuscular Hemoglobin 31.2 pg (25-34) Mean Corpuscular Hemoglobin Concent 32.9 g/dl (32-36) Platelet Count 280 K/uL (130-400) Mean Platelet Volume 11.2 fL (7.4-10.4) Neutrophils (%) (Auto) 62.4 % Lymphocytes (%) (Auto) 24.9 % Monocytes (%) (Auto) 7.5 % Eosinophils (%) (Auto) 4.5 % Basophils (%) (Auto) 0.5 % Neutrophils # (Auto) 6.45 K/uL (1.4-6.5) Lymphocytes # (Auto) 2.57 K/uL (1.2-3.4) Monocytes # (Auto) 0.77 K/uL (0.11-0.59) Eosinophils # (Auto) 0.46 K/uL (0-0.5) Basophils # (Auto) 0.05 K/uL (0-0.2) RDW Standard Deviation 57.3 fL (36.4-46.3) RDW Coefficient of Variation 16.6 % (11.5-14.5) Immature Granulocyte % (Auto) 0.2 % Immature Granulocyte # (Auto) 0.02 K/uL (0.00-0.02) Anion Gap 8.0 mmol/L (3-11) Est Creatinine Clear Calc Drug Dose 26.2 ml/min Estimated GFR () 45.9 Estimated GFR (Non- 39.6 BUN/Creatinine Ratio 20.2 (10-20) Calcium Level 8.7 mg/dl (8.5-10.1) Total Bilirubin 0.8 mg/dl (0.2-1) Direct Bilirubin 0.2 mg/dl (0-0.2) Aspartate Amino Transf (AST/SGOT) 67 U/L (15-37) Alanine Aminotransferase (ALT/SGPT) 125 U/L (12-78) Alkaline Phosphatase 123 U/L (45-117) Pro-B-Type Natriuretic Peptide 8047 pg/ml (0-1800) Total Protein 7.1 gm/dl (6.4-8.2) Albumin 3.6 gm/dl (3.4-5.0) Laboratory results per my review. Medications Administered Medications (Trade) Dose Ordered Sig/David Route Start Time Stop Time Status Last Admin Dose Admin Furosemide (Lasix Inj) 20 mg NOW STAT IV 09/27/17 14:16 09/27/17 14:18 DC 09/27/17 14:26 20 MG ECG Indication: SOB/dyspnea Rate (beats per minute): 64 Rhythm: sinus rhythm Findings: LBBB, PVC, other (Left atrial enlargement) Change: Patient's electrocardiogram interpreted by me. ED Course 1236: Past medical records reviewed. The patient was evaluated in room A4B. A complete history and physical examination was performed. 1416: Ordered Lasix 20 mg IV. 1441: I discussed the case with Dr. Ricardo - Pulmonclara. He will to come to the department to see the patient. 1509: Dr. Ricardo has arrived to the department at this time. He is evaluating the patient. 1513: The patient got up to walk to the restroom at this time. Her O2% dropped to 86%. 1600: Dr. Ricardo performed a right sided paracentesis. 1622: Following the paracentesis procedure the patient did a walking test, she did not go below 92%. She will be discharged home with close follow-up from Dr. Ricardo. Medical Decision Differential diagnosis: Etiologies such as infections, reactive airway disease, pneumonia, pneumothorax , COPD, CHF, cardiac ischemia, pulmonary embolism, musculoskeletal, gastrointestinal, as well as others were entertained. This patient was evaluated and appeared to be in significant distress. IV access was obtained and laboratory work was drawn. The patient was given 20 mg of Lasix IV. Chest x-ray was performed and is read as above. The patient was maintaining her oxygenation on 2 L nasal cannula. The patient is taken off of the actions she does desaturate. I spoke with Dr. Ricardo of pulmonary medicine. He does know the patient well. He reviewed the patient's record and feels that a thoracentesis may be appropriate. On evaluation he ultrasound of the patient and took off nearly a liter from the right hemithorax. Patient tolerated and ambulatory trial thereafter with no desaturation on room air. She did not want admission to the hospital. She was discharged to follow-up with Dr. Ricardo's office next week. She does see cardiology and will likely need their reevaluation in the near future for diastolic heart failure. The patient will return to the ER for worsening of symptoms or any medical concerns. Blood Pressure Screening Patient's blood pressure: Elevated blood pressure Referred Consults Time Called: 1431 Consulting Physician: Dr. Ricardo - Pulmonology Returned Call: 1441 I discussed the case with Dr. Waddington - Pulmonology. He will to come to the department to see the patient. Impression Primary Impression: Bilateral pleural effusion Additional Impression: Hypoxia Scribe Attestation The scribe's documentation has been prepared under my direction and personally reviewed by me in its entirety. I confirm that the note above accurately reflects all work, treatment, procedures, and medical decision making performed by me. Departure Information Dispostion Home / Self-Care Referrals Musa Mejía MD (PCP) Forms HOME CARE DOCUMENTATION FORM, IMPORTANT VISIT INFORMATION, WORK / SCHOOL INSTRUCTIONS Patient Instructions [facility] Additional Instructions Diagnosis: Bilateral pleural effusions, hypoxia Please follow-up with Dr. Ricardo as directed. Return to the emergency department for worsening of symptoms or any medical concerns. Problem Qualifiers
--- NOTE | 2017-09-27 13:18 | DIAGNOSTIC IMAGING REPORT ---
CHEST 2 VIEWS ROUTINE CLINICAL HISTORY: SOB, hypoxia dyspnea COMPARISON STUDY: 09/11/2017 FINDINGS: Mildly progressive bibasilar parenchymal infiltrates. Components of congestive failure persist. Mildly improved nodularity right midlung. Moderate cardiomegaly. Pulmonary apices are clear. IMPRESSION: Mildly progressive bibasilar parenchymal infiltrates. Underlying components of mild congestive failure stable from the prior exam. The above report was generated using voice recognition software. It may contain grammatical, syntax or spelling errors. Electronically signed by: Moose Diego M.D. 09/27/2017 1:17 PM Dictated Date/Time: 09/27/2017 1:15 PM
[2017-09-27 13:40] LABS: BASO % 0.5 %; BASO ABS # 0.05 K/uL (0-0.2); EOS % 4.5 %; EOS ABS # 0.46 K/uL (0-0.5); HEMATOCRIT 39.2 % (37-47); HEMOGLOBIN 12.9 g/dL (12.0-16.0); IG# 0.02 K/uL (0.00-0.02); LYMPH % 24.9 %; LYMPH ABS # 2.57 K/uL (1.2-3.4); MEAN CELL VOLUME 94.7 fL (80-100); MEAN CORPUSCULAR HEMOGLOBIN 31.2 pg (25-34); MEAN CORPUSCULAR HGB CONC 32.9 g/dl (32-36); MEAN PLATELET VOLUME 11.2 fL (7.4-10.4); MONO % 7.5 %; MONO ABS # 0.77 K/uL (0.11-0.59); NEUT % 62.4 %; NEUT ABS # 6.45 K/uL (1.4-6.5); PLATELET COUNT 280 K/uL (130-400); RED CELL DISTRIBUTION WIDTH CV 16.6 % (11.5-14.5); RED CELL DISTRIBUTION WIDTH SD 57.3 fL (36.4-46.3); WHITE BLOOD COUNT 10.32 K/uL (4.8-10.8)
[2017-09-27 13:50] LABS: ALBUMIN 3.6 gm/dl (3.4-5.0); CALCIUM 8.7 mg/dl (8.5-10.1); CREATININE 1.24 mg/dl (0.60-1.20); POTASSIUM 3.7 mmol/L (3.5-5.1)
[2017-09-27 13:55] LABS: TOTAL PROTEIN 7.1 gm/dl (6.4-8.2)
[2017-09-27] MEDS ORDERED: FUROSEMIDE 40 MG/4 ML VIAL IV STA (14:16)
--- NOTE | 2017-09-27 16:14 | Procedure Note ---
Procedure Note Date of Service Sep 27, 2017. Procedure Note Procedures: Right sided Thoracentesis Consent: obtained via the patient and placed into the chart Pre-Procedural Dx: Bilateral pleural effusions secondary to CHF Post-Procedural Dx: Bilateral pleural effusion secondary to CHF Analgesia: 8cc of 1% Liquid Lidocaine Procedure: The patient was placed in an upright position and thoracic US was used to select a spot for the procedure. A spot along the posterior axillary line was marked in the 7th intercostal space. The patient was then draped and prepped in a sterile fashion. A modified Seldinger technique was then used for catheter placement. Flowing this approximately 950cc of dark yellow pleural fluid was removed. The patient was then cleaned and placed at a 60 degree angle in the bed were the US was used to evaluate for possible pneumothorax. The US showed good lung sliding and starry night sign. EBL: None Complications: None
--- NOTE | 2017-09-27 16:32 | Pulmonary Consultation ---
History General Date of Service: Sep 27, 2017. Stated Complaint: Shortness of breath with associated bilateral pleural effusion secondary to CHF HPI The patient is a 86 year old female who presents to [facility] with complaints of Breathing. The patient's primary care provider is Musa Mejía MD. 86-year-old female with history of CHF with bilateral pleural effusions, TAVR and moderate obstructive ventilatory disease with an FEV1 of 69% with a 2-3 day history of progressive dyspnea on exertion. Over the last 2 days the patient's home health care providers of noticed a drop in her SaO2 6 via pulse oximetry the been documented down to at least 87 but reportedly down to possibly 82%. Due to this the patient admitted presented to the emergency room. During our conversation the patient denies: Fever, chills, productive cough, pleurisy, classic cardiac chest pain. Thoracentesis: Right-sided 08/19/2017: Left-sided 08/19/2017: Echocardiogram 08/16/2017 Left ventricular systolic function is normal. No regional wall motion abnormalities noted. Ejection Fraction = 60-65%. There is mild concentric left ventricular hypertrophy. Diastolic dysfunction, Grade II (pseudonormalization pattern). The gradient is normal for this prosthetic aortic valve. Mild aortic regurgitation. There is mild mitral regurgitation. There is mild tricuspid regurgitation. CT angiogram of the chest 07/22/2017, 08/16/[address] of the chest 08/19/2017. Active Problems 1. Acute congestive heart failure, unspecified congestive heart failure type ( I50.9) 2. Acute cystitis (N30.00) 3. Carotid bruit (R09.89) 4. Chronic renal insufficiency (N18.9) 5. Community acquired pneumonia (J18.9) 6. Diabetes mellitus (E11.9) 7. Diarrhea (R19.7) 8. Dyslipidemia (E78.5) 9. Dyspnea on exertion (R06.09) 10. Fatigue (R53.83) 11. Hearing loss (H91.90) 12. Hypertension (I10) 13. Hypothyroidism (E03.9) 14. Intermittent claudication (I73.9) 15. Left bundle-branch block (I44.7) 16. Lung nodule seen on imaging study (R91.1) 17. Mass of middle lobe of right lung (R91.8) 18. Muscle cramps (R25.2) 19. Osteopenia (M85.80) 20. Pain and swelling of wrist (M25.539,M25.439) 21. Periodic limb movement disorder (G47.61) 22. Pleural effusion (J90) 23. 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 Rhinorrhea (J34.89) 25. 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 History of Severe aortic stenosis (I35.0) 27. Shortness of breath on exertion (R06.02) 28. 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 Urinary symptom or sign (R39.9) 30. Vitamin D deficiency (E55.9) 31. Vitiligo (L80) Past Medical History 1. History of External ear disorder (H61.90) 2. History of diabetes mellitus (Z86.39) 3. History of Hypertension (I10) 4. History of Hypothyroidism (E03.9) 5. History of Left arm pain (M79.602) 6. History of Localized swelling, mass and lump, left upper limb (R22.32) 7. History of Severe aortic stenosis (I35.0) Surgical History 1. History of Aortic Valve Replacement 2. History of Appendectomy 3. History of Breast Surgery Lumpectomy 4. History of Cataract Surgery 5. History of Complete Colonoscopy 6. Denied: History of Surgery Family History 1. Denied: Family history of colon cancer 2. Denied: Family history of malignant neoplasm of breast 3. Denied: Family history of malignant neoplasm of ovary 4. Denied: Family history of malignant neoplasm of prostate 5. Denied: Family history of myocardial infarction 6. Denied: Family history of colon cancer 7. Denied: Family history of malignant neoplasm of breast 8. Denied: Family history of malignant neoplasm of ovary 9. Denied: Family history of malignant neoplasm of prostate 10. Family history of myocardial infarction (Z82.49) 11. Denied: Family history of colon cancer 12. Denied: Family history of malignant neoplasm of breast 13. Denied: Family history of malignant neoplasm of ovary 14. Denied: Family history of malignant neoplasm of prostate 15. Denied: Family history of myocardial infarction 16. Family history of diabetes mellitus (Z83.3) 17. Family history of Atherosclerosis 18. Denied: Family history of colon cancer 19. Denied: Family history of malignant neoplasm of breast 20. Denied: Family history of malignant neoplasm of ovary 21. Denied: Family history of malignant neoplasm of prostate 22. Denied: Family history of myocardial infarction Social History Denied: History of Alcohol Use (History) Dental care, regularly Does not use illicit drugs (Z78.9) Drug Use Exercises 3 to 4 times per week (Z78.9) Former smoker (Z87.891) Living situation Never used moist powdered tobacco (Z78.9) No secondhand smoke exposure (Z78.9) Rarely consumes alcohol (Z78.9) Retired Special needs due to hearing impairment (H91.90) Denied: History of Special needs due to visual impairment (Z63.4) Current Meds 1. Vortex Valved Holding Chamber Device; use with inhaler; 2. BD Pen Needle Mini U/F 31G X 5 MM; Inject bid; 3. NovoFine 32G X 6 MM; USE TWICE A DAY DIRECTED; 4. [employer] Ultra Blue In Vitro Strip; TEST three times a day; 5. Sure Comfort Pen [place] 32G X 4 MM; USE TWICE A DAY DIRECTED; 6. Lantus SoloStar 100 UNIT/ML Subcutaneous Solution Pen-injector; INJECT 12 UNITS IN 7. Diphenoxylate-Atropine 2.5-0.025 MG Oral Tablet; take 1 tablet by mouth four times a day 8. Atorvastatin Calcium 20 MG Oral Tablet; Take 1 tablet daily; 9. D 1000 1000 UNIT Oral Capsule; TAKE 2 CAPSULES DAILY; 10. ICaps MV Oral Tablet; TAKE 1 TABLET DAILY; 11. Ocuvite TABS; TAKE 1 TABLET DAILY; 12. Vitamin B-12 1000 MCG Oral Tablet; Take 2 tablets daily as directed; 13. AmLODIPine Besylate 5 MG Oral Tablet; TAKE 1 TABLET EVERY DAY in PM; 14. Benazepril HCl - 20 MG Oral Tablet; TAKE 1 TABLET DAILY; 15. Furosemide 20 MG Oral Tablet; Take 2 tablets daily; 16. Levoxyl 75 MCG Oral Tablet; TAKE 1 TABLET BY MOUTH ONCE DAILY; 17. Meloxicam 15 MG Oral Tablet; take 1 tablet by mouth once a day for pain; 18. ROPINIRole HCl - 1 MG Oral Tablet; TAKE 1 TABLET AT BEDTIME; 19. Combivent Respimat 20-100 MCG/ACT Inhalation Aerosol Solution; INHALE 1 PUFF 4 20. Aspirin 81 MG TABS; TAKE 1 TABLET DAILY; 21. Sure Comfort Pen [place] 32G X 4 MM; USE TWICE A DAY DIRECTED; 22. Bromfenac Sodium (Once-Daily) 0.09 % Ophthalmic Solution; INSTILL 1 DROP INTO 23. Metoprolol Tartrate 25 MG Oral Tablet; Take 1/2 tablet (12.5mg) BID; 24. Systane 0.4-0.3 % Ophthalmic Solution; 1 drop both eyes daily; Allergies 1. OxyCODONE HCl TABS 2. MetFORMIN HCl TABS Historian: patient, family, EMS Review of Systems Constitutional: reports: malaise Eyes: reports: no symptoms ENT: reports: no symptoms Cardiovascular: reports: as stated in HPI Respiratory: reports: as stated in HPI Gastrointestinal: reports: no symptoms Genitourinary - Female: reports: no symptoms Musculoskeletal: reports: no symptoms Integumentary: reports: no symptoms Neurologic: reports: no symptoms Psychiatric: reports: no symptoms Endocrine: no symptoms Hematologic / Lymphatic: no symptoms Allergic / Immunologic: no symptoms Past Medical History Past Medical History: Please refer to HPI Past Surgical History: Please refer to HPI Family History Diabetes mellitus FH: hypertension Heart disease Please refer to HPI Social History Please refer to HPI Hx Tobacco Use In Past Year?: No Smoking Status: Never Smoker Marital status: Housing status: lives alone Occupational Status: retired History of MDRO History of MDRO: No Allergies Coded Allergies: Metformin (Unverified Adverse Reaction, Unknown, ., 09/27/17) Oxycodone (Unverified Adverse Reaction, Unknown, HALLUCINATIONS, 09/27/17) Current Medications Reported Home Medications Medications Dose Route/Sig Max Daily Dose Days Date Category Dose Instructions Combivent Respimat (Ipratropium-Albuterol) 1 Aer Aer 1 Puffs INH QID PRN 09/27/17 Reported Mobic (Meloxicam) 7.5 Mg Tab 7.5 Mg PO DAILY 09/27/17 Reported Lomotil 2.5-0.025 mg (Diphenoxylate HCl/Atropine) 1 Ea Tab 1 Tab PO BID 09/27/17 Reported Lopressor (Metoprolol Tartrate) 25 Mg Tab 12.5 Mg PO BID 30 09/06/17 Rx Lasix (Furosemide) 20 Mg Tab 20 Mg PO DAILY 08/11/17 Reported D 1000 (Cholecalciferol) 1,000 Unit Cap 2,000 Units PO DAILY 07/22/17 Reported Requip (Ropinirole HCl) 1 Mg Tab 1 Mg PO HS 07/18/17 Reported Lipitor (Atorvastatin Calcium) 20 Mg Tab 20 Mg PO HS 07/18/17 Reported Lantus Solostar (Insulin Glargine) 100 Unit/Ml Inj 10 Units SQ QPM 07/18/17 Reported Lantus Solostar (Insulin Glargine) 100 Unit/Ml Inj 12 Units SQ QAM 07/18/17 Reported Levothyroxine Sodium 75 Mcg Tab 75 Mcg PO DAILY 07/18/17 Reported Systane (Polyethylene Glycol-Propylene) 1 Gladys Gladys 1 Drops OP QPM 01/02/16 Reported Prolensa (Bromfenac Sodium (Ophth)) 0.07 % Gladys 1 Drop OPB QAM 01/02/16 Reported Aspirin Ec (Aspirin) 81 Mg Tab 81 Mg PO HS 01/02/16 Reported Icaps (Multiple Vitamins W/ Minerals) 1 Cap Cap 1 Cap PO DAILY 01/02/16 Reported Ocuvite Preservision (Multivitamins/Minerals) 1 Tab Tab 1 Tab PO DAILY 01/02/16 Reported Vitamin B-12 1000 Mcg (Cyanocobalamin) 1,000 Mcg Tab 2,000 Mcg PO DAILY 01/02/16 Reported Norvasc (Amlodipine Besylate) 5 Mg Tab 5 Mg PO HS 09/24/11 Reported Lotensin (Benazepril HCl) 40 Mg Tab 20 Mg PO DAILY 09/24/11 Reported 1/2 TABLET DOSE Physical Physical Exam Vital Signs: Date Time Temp Pulse Resp B/P (MAP) Pulse Ox O2 Delivery O2 Flow Rate FiO2 09/27/17 15:14 86 Room Air 09/27/17 14:28 69 18 147/58 95 Room Air 09/27/17 13:19 68 18 154/54 96 Nasal Cannula 2.0 09/27/17 12:13 57 09/27/17 11:58 95 Nasal Cannula 2.0 09/27/17 11:44 96 Nasal Cannula 2.0 09/27/17 11:44 96 Nasal Cannula 2.0 09/27/17 11:25 36.3 65 20 139/54 87 Room Air General Appearance: mild distress Head: NORMOCEPHALIC, ATRAUMATIC Eyes: PERRLA, NO DISCHARGE, EOMI, SCLERAE NORMAL, CONJUNCTIVAE NORMAL ENT: NORMAL EAR EXAM, NORMAL NASAL EXAM, NORMAL MOUTH EXAM, NORMAL THROAT EXAM , NORMAL DENTAL EXAM, NORMAL SINUS EXAM Neck: NORMAL RANGE OF MOTION, NO TENDERNESS, TRACHEA MIDLINE, NO STRIDOR, SUPPLE Respiratory: other (Decreased breath sounds with dullness to percussion at the bases bilaterally, ultrasound showed bilateral large pleural effusions with notable B lines bilaterally) Cardiovasular: REGULAR RATE/RHYTHM, NORMAL S1S2, systolic murmur Abdomen: NON TENDER, NORMAL BOWEL SOUNDS, NO REBOUND, NO MASSES, NO GUARDING, NO ORGANOMEGALY Genitourinary - Female: EXTERNAL GENITALIA NORMAL Back: NORMAL INSPECTION, NO MIDLINE TENDERNESS, NO CVA TENDERNESS, NO PARAVERTEBRAL TTP Upper Extremities: NO EDEMA, NO DEFORMITY, NORMAL ROM Lower Extremities: NO EDEMA, NO DEFORMITY, NORMAL ROM Pulses: carotid (R) (2+), carotid (L) (2+), dorsalis pedis (R) (2+), dorsalis pedis (L) (2+) Neuro: ALERT, ORIENTED x 3, NORMAL MOTOR EXAM, NORMAL SENSATION Reflexes: biceps (R) (2+), bicpes (L) (2+), achilles (R) (2+), achilles (L) (2+ ) Babinski Testing: right (downgoing), left (downgoing) Psychiatric: NORMAL AFFECT, NO SUICIDAL IDEATION Diagnostics Labs Results Past 24 Hours Test 09/27/17 11:40 Range/Units White Blood Count 10.32 4.8-10.8 K/uL Red Blood Count 4.14 4.2-5.4 M/uL Hemoglobin 12.9 12.0-16.0 g/dL Hematocrit 39.2 37-47 % Mean Corpuscular Volume 94.7 80-100 fL Mean Corpuscular Hemoglobin 31.2 25-34 pg Mean Corpuscular Hemoglobin Concent 32.9 32-36 g/dl Platelet Count 280 130-400 K/uL Mean Platelet Volume 11.2 7.4-10.4 fL Neutrophils (%) (Auto) 62.4 % Lymphocytes (%) (Auto) 24.9 % Monocytes (%) (Auto) 7.5 % Eosinophils (%) (Auto) 4.5 % Basophils (%) (Auto) 0.5 % Neutrophils # (Auto) 6.45 1.4-6.5 K/uL Lymphocytes # (Auto) 2.57 1.2-3.4 K/uL Monocytes # (Auto) 0.77 0.11-0.59 K/uL Eosinophils # (Auto) 0.46 0-0.5 K/uL Basophils # (Auto) 0.05 0-0.2 K/uL RDW Standard Deviation 57.3 36.4-46.3 fL RDW Coefficient of Variation 16.6 11.5-14.5 % Immature Granulocyte % (Auto) 0.2 % Immature Granulocyte # (Auto) 0.02 0.00-0.02 K/uL Sodium Level 144 136-145 mmol/L Potassium Level 3.7 3.5-5.1 mmol/L Chloride Level 112 98-107 mmol/L Carbon Dioxide Level 24 21-32 mmol/L Anion Gap 8.0 3-11 mmol/L Blood Urea Nitrogen 25 7-18 mg/dl Creatinine 1.24 0.60-1.20 mg/dl Est Creatinine Clear Calc Drug Dose 26.2 ml/min Estimated GFR () 45.9 Estimated GFR (Non- 39.6 BUN/Creatinine Ratio 20.2 10-20 Random Glucose 86 70-99 mg/dl Calcium Level 8.7 8.5-10.1 mg/dl Total Bilirubin 0.8 0.2-1 mg/dl Direct Bilirubin 0.2 0-0.2 mg/dl Aspartate Amino Transf (AST/SGOT) 67 15-37 U/L Alanine Aminotransferase (ALT/SGPT) 125 12-78 U/L Alkaline Phosphatase 123 45-117 U/L Pro-B-Type Natriuretic Peptide 8047 0-1800 pg/ml Total Protein 7.1 6.4-8.2 gm/dl Albumin 3.6 3.4-5.0 gm/dl Diagnostic Radiology Hilar fullness with bilateral pleural effusions EKG Left bundle branch block with a rate of 64 Impression Assessment and Plan 86-year-old female notably short of breath with bilateral pleural effusions: 1. Pleural effusion: This patient's pleural effusions most likely secondary to CHF/diastolic dysfunction which is acute on chronic. She has responded well to thoracentesis in the past at this time has agreed to moving forward with a repeat thoracentesis on the right side. Thoracic ultrasound does show a moderate to large pleural effusion with Maribeth B lines. Thoracentesis was performed please refer to procedure no. 2. Hypoxia: Patient was evaluated by at 2 step and did not desaturate to less than 88 % at this time does not qualify for home oxygen. I will have the office contact her on Saturday morning for follow-up. Thank you for this consultation
[2017-09-27 17:07] VITALS: BP 151/67; PULSE 75; O2SAT 95
[2017-09-27 17:53] LABS: PLEURAL FLUID TOTAL PROTEIN 1.4 g/dl
== END 2017-09-27 17:07 | disposition home or self-care (01) ==
LOC: C.EDB 11:24 → C.EDA 17:07
DX: I50.33 Acute on chronic diastolic (congestive) heart failure (principal); I11.0 Hypertensive heart disease with heart failure; J90 Pleural effusion, not elsewhere classified; Z95.2 Presence of prosthetic heart valve; Z83.3 Family history of diabetes mellitus; Z82.49 Family history of ischemic heart disease and other diseases of the circulatory system; Z79.899 Other long term (current) drug therapy; Z79.82 Long term (current) use of aspirin; Z79.4 Long term (current) use of insulin; E78.5 Hyperlipidemia, unspecified; E03.9 Hypothyroidism, unspecified; I44.7 Left bundle-branch block, unspecified; M85.80 Other specified disorders of bone density and structure, unspecified site; Z87.891 Personal history of nicotine dependence; E11.40 Type 2 diabetes mellitus with diabetic neuropathy, unspecified; Z98.49 Cataract extraction status, unspecified eye

== ENCOUNTER 2017-10-02 08:45 | Emergency (ER) | payer BC ==
[~2017-10-02] VITALS: Ht 157.5 cm; Wt 57.0 kg
[~2017-10-02 08:45] MED LIST changes: +IPRA1AER2 INH; +MELO7.5T5 PO; -VNTHFA/IN INH
[2017-10-02 08:56] VITALS: TEMP 36.4; Ht 157.5 cm; Wt 57.0 kg
[2017-10-02 09:00] VITALS: O2SAT 93
--- NOTE | 2017-10-02 09:10 | EMERGENCY ROOM VISIT NOTE ---
History Report prepared by Sumeet: Gina Fontana Under the Supervision of: Dr. Catrachito Dong M.D. First contact with patient: 08:52 Chief Complaint: SHORTNESS OF BREATH Stated Complaint: BREATHING History of Present Illness The patient is a 86 year old female who presents to the Emergency Room with complaints of constant shortness of breath beginning a couple days ago. The patient has a history of pleural effusions. She had he right lung tapped on Saturday and is scheduled to have her left lung tapped tomorrow. The patient is unsure of why she is getting pleural effusions. She states her physician believes her pleural effusions may be because of her heart. She denies any cough or fever. The patient has a bovine aortic valve replacement 2 years ago. The patient is not on any blood thinners. She reports she had her lungs tapped a month ago. This is the patient's 8th time in the ED for the same symptoms. The patient recently was started on Lasix. Source of History: patient Onset: a couple days ago Position: other (generalized) Quality: other (shortness of breath) Timing: constant Associated Symptoms: + SOB, No fevers, No cough Review of Systems See HPI for pertinent positives & negatives. A total of 10 systems reviewed and were otherwise negative. Past Medical & Surgical Medical Problems: (1) Acute congestive heart failure (2) Acute diastolic heart failure (3) Acute respiratory failure with hypoxia (4) chf exac, pna (5) Hypertension (6) Insulin dependent diabetes mellitus (7) Neuropathy (8) Upper respiratory infection, acute Surgical Problems: (1) Aortic valve replaced (2) S/P TAVR (transcatheter aortic valve replacement) Old medical records were reviewed. Nurse's notes were reviewed and I agree with. Family History Diabetes mellitus FH: hypertension Heart disease Social History Smoking Status: Never Smoker Drug Use: none Marital Status: Occupation Status: retired Current/Historical Medications Scheduled Amlodipine (Norvasc), 5 MG PO HS Aspirin (Aspirin Ec), 81 MG PO HS Atorvastatin (Lipitor), 20 MG PO HS Benazepril (Lotensin), 20 MG PO DAILY Bromfenac Sodium (Ophth) (Prolensa), 1 DROP OPB QAM Cholecalciferol (D 1000), 2,000 UNITS PO DAILY Cyanocobalamin (Vitamin B-12 1000 Mcg), 2,000 MCG PO DAILY Diphenoxylate/Atropine (Lomotil 2.5-0.025 mg), 1 TAB PO BID Furosemide (Lasix), 20 MG PO DAILY Insulin Glargine (Lantus Solostar), 12 UNITS SQ QAM Insulin Glargine (Lantus Solostar), 10 UNITS SQ QPM Levothyroxine Sodium (Levothyroxine Sodium), 75 MCG PO DAILY Meloxicam (Mobic), 7.5 MG PO DAILY Metoprolol Tartrate (Lopressor), 12.5 MG PO BID Multiple Vitamins W/ Minerals (Icaps), 1 CAP PO DAILY Ocuvite Preservision (Ocuvite Preservision), 1 TAB PO DAILY Polyethylene Glycol-Propylene (Systane), 1 DROPS OP QPM Ropinirole (Requip), 1 MG PO HS Scheduled PRN Ipratropium-Albuterol (Combivent Respimat), 1 PUFFS INH QID PRN for SOB/Wheezing Allergies Coded Allergies: Metformin (Unverified Adverse Reaction, Unknown, ., 10/02/17) Oxycodone (Unverified Adverse Reaction, Unknown, HALLUCINATIONS, 10/02/17) Physical Exam Vital Signs Date Time Temp Pulse Resp B/P (MAP) Pulse Ox O2 Delivery O2 Flow Rate FiO2 10/02/17 14:50 75 20 93 10/02/17 13:47 73 16 118/52 97 Nasal Cannula 1.0 10/02/17 13:08 60 10/02/17 11:53 76 22 139/67 86 Room Air 10/02/17 09:07 70 10/02/17 09:00 93 Nasal Cannula 2.0 10/02/17 08:56 36.4 76 24 165/69 87 Room Air Physical Exam General: Non-ill appearing older female in no acute distress. HEENT: Normal cephalic atraumatic. Pupils are equal round and reactive to light. Extraocular movements are intact. Oropharynx is pink with moist mucous membranes. No swelling of the mouth lips or tongue. Neck: Supple with a midline trachea. No meningeal signs or stiffness, no JVD or bruits. No Stridor. Chest: Clear to auscultation bilaterally. No wheezes or rhonchi. Mildly tachypneic. No increased work of breathing. Heart: regular rate and rhythm. Abdomen: Soft nontender, nondistended without rebound guarding or rigidity. Extremities: No cyanosis clubbing or edema. No calf tenderness or assymetry Spine/Back. Non tender to palpation. No CVA tenderness Skin: Good turgor without rashes. Neurologic exam: Cranial nerves two through 12 are intact. Motor and sensation are intact and symmetrical throughout. Medical Decision & Procedures ER Provider Diagnostic Interpretation: Radiology results as stated below per my review and radiologist interpretation: CHEST ONE VIEW PORTABLE FINDINGS: Atherosclerosis of aortic arch. Cardiac silhouette enlarged. Mediastinal surgical clips and prosthetic aortic valve again noted. Decreased right basilar opacity. Persistent left basilar opacity. Decreased right pleural effusion with persistent small left pleural effusion. No pneumothorax. Degenerative changes of the thoracic spine. Superior subluxation of the right humeral head could suggest complete rotator cuff tear. Upper abdomen normal. IMPRESSION: 1. Slight improved aeration of the right lung base with decreased pleural effusion. Persistent left is opacity and left pleural effusion. 2. Cardiomegaly. Electronically signed by: Earle Aguilar M.D. Laboratory Results 10/02/17 09:12 Red Blood Count 4.12, Mean Corpuscular Volume 93.4, Mean Corpuscular Hemoglobin 31.6, Mean Corpuscular Hemoglobin Concent 33.8, Mean Platelet Volume 10.7, Neutrophils (%) (Auto) 69.7, Lymphocytes (%) (Auto) 14.2, Monocytes (%) (Auto) 7.4, Eosinophils (%) (Auto) 8.2, Basophils (%) (Auto) 0.3, Neutrophils # (Auto) 8.40, Lymphocytes # (Auto) 1.71, Monocytes # (Auto) 0.89, Eosinophils # (Auto) 0.99, Basophils # (Auto) 0.04 10/02/17 09:12 Test 10/02/17 09:12 10/02/17 09:15 10/02/17 12:00 White Blood Count 12.06 K/uL (4.8-10.8) Red Blood Count 4.12 M/uL (4.2-5.4) Hemoglobin 13.0 g/dL (12.0-16.0) Hematocrit 38.5 % (37-47) Mean Corpuscular Volume 93.4 fL (80-100) Mean Corpuscular Hemoglobin 31.6 pg (25-34) Mean Corpuscular Hemoglobin Concent 33.8 g/dl (32-36) Platelet Count 264 K/uL (130-400) Mean Platelet Volume 10.7 fL (7.4-10.4) Neutrophils (%) (Auto) 69.7 % Lymphocytes (%) (Auto) 14.2 % Monocytes (%) (Auto) 7.4 % Eosinophils (%) (Auto) 8.2 % Basophils (%) (Auto) 0.3 % Neutrophils # (Auto) 8.40 K/uL (1.4-6.5) Lymphocytes # (Auto) 1.71 K/uL (1.2-3.4) Monocytes # (Auto) 0.89 K/uL (0.11-0.59) Eosinophils # (Auto) 0.99 K/uL (0-0.5) Basophils # (Auto) 0.04 K/uL (0-0.2) RDW Standard Deviation 55.6 fL (36.4-46.3) RDW Coefficient of Variation 16.1 % (11.5-14.5) Immature Granulocyte % (Auto) 0.2 % Immature Granulocyte # (Auto) 0.03 K/uL (0.00-0.02) Prothrombin Time 10.5 SECONDS (9.0-12.0) Prothromb Time International Ratio 1.0 (0.9-1.1) Activated Partial Thromboplast Time 25.2 SECONDS (21.0-31.0) Partial Thromboplastin Ratio 1.0 Anion Gap 9.0 mmol/L (3-11) Est Creatinine Clear Calc Drug Dose 31.0 ml/min Estimated GFR () 56.1 Estimated GFR (Non- 48.4 BUN/Creatinine Ratio 25.2 (10-20) Calcium Level 8.6 mg/dl (8.5-10.1) Total Bilirubin 0.5 mg/dl (0.2-1) Direct Bilirubin 0.1 mg/dl (0-0.2) Aspartate Amino Transf (AST/SGOT) 42 U/L (15-37) Alanine Aminotransferase (ALT/SGPT) 68 U/L (12-78) Alkaline Phosphatase 90 U/L (45-117) Pro-B-Type Natriuretic Peptide 5902 pg/ml (0-1800) Total Protein 6.4 gm/dl (6.4-8.2) Albumin 3.2 gm/dl (3.4-5.0) Lipase 209 U/L (73-393) Bedside Troponin I 0.060 ng/ml (0-0.045) Pleural Fluid Source RIGHT LUNG Pleural Fluid Color PINK Pleural Fluid Appearance HAZY Pleural Fluid WBC 408 /uL Pleural Fluid RBC 75673 /uL Pleural Fluid pH 7.53 (7.3-7.4) Pleural Fluid Polynuclear WBCs % 11.1 % Pleural Fluid Mononuclear WBCs % 88.9 % Pleural Fluid Total Protein 1.2 g/dl Pleural Fluid LDH 78 IU Pleural Fluid Glucose 108 mg/dl Pleural Fluid Amylase 20 U/L Laboratory studies as stated above per my review. ECG Indication: SOB/dyspnea Rate (beats per minute): 66 Rhythm: normal sinus Findings: LBBB, no acute ischemic change, no ectopy Comparison ECG Date: 09/27/2017 Change: no significant change Change: EKG interpreted by me. ED Course 0859: Past medical records reviewed. The patient was evaluated in room A10, and a complete history and physical examination were performed. 0932: On reassessment, the patient states she is feeling better . 1032: [place]. [place] [place] Teaching [place] is in the room evaluating the patient. 1109: The patient is resting comfortably. Dr. Ricardo will do a bronchoscopy on the patient. 1150: Dr. Ricardo drained 800 ccs from the patients right lung. The patient does not want to stay in the hospital. He says to watch the patient for two hours and send her home if she wont stay in the hospital. He will drain her other lung tomorrow. 1201: The patient does not want to stay in the hospital. She is resting comfortably. 1354: I updated the patient on her test results. 1438: The patient passed the two step test. 1444: I updated her on her test results. She is ready to go home. 1449: Upon reevaluation, the patient is resting comfortably. I discussed the results and treatment plan with the patient. She verbalized agreement of the treatment plan. The patient was discharged home. Medical Decision Differential diagnoses: pleural effusion, pneumothorax cardiac disease, electrolyte or metabolic abnormality This patient comes in as described above. She was placed in room A 10. She has a history of CHF and recurrent pleural effusions. She seen by Dr. Ricardo and had her right side drained this past week she is scheduled to have her left side drained tomorrow but felt like she could make it she feels more short of breath and has been mildly hypoxemic at home she denies any chest pain fever chills or cough. IV access established. EKG was obtained which shows no ischemic changes. troponin is mildly elevated 0.06 however she chronically runs elevated. I do not suspect acute coronary syndrome. Chest x- ray shows pleural fluid effusion on the right present but improved compared to previous. there is still a moderate pleural effusion on the left. Blood testing was obtained. I did consult Dr. Ricardo. He saw the patient ER and has repeatedly drained a significant amount of fluid from her right lung she feels better as per his request. I observed her in the ER for 2 hours and she was not hypoxemic prior to discharge. I had respiratory come down and do a two- step evaluation to see if she would qualify for home oxygen she did not desaturate below 92% and therefore does not qualify for home oxygen. She adamantly does not want to stay in the hospital as I suggested. She was given a come back tomorrow and see Dr. Ricardo for drainage of the left. She will be discharged home and have close follow-up tomorrow. The patient and daughter were happy the plan and she was discharged to home. Medication Reconcilliation Current Medication List: was personally reviewed by me Blood Pressure Screening Patient's blood pressure: Elevated blood pressure Blood pressure disposition: Elevated BP felt to be situational Consults Time Called: 1005 Consulting Physician[facility] [place] [facility] Returned Call: 1032 Dr. Hudson Special Education Teaching Assistant is in room evaluating the patient. Impression Primary Impression: Shortness of breath Additional Impressions: Pleural effusion CHF (congestive heart failure) Scribe Attestation The scribe's documentation has been prepared under my direction and personally reviewed by me in its entirety. I confirm that the note above accurately reflects all work, treatment, procedures, and medical decision making performed by me. Departure Information Dispostion Home / Self-Care Referrals Lottie Winn MD (PCP) Forms HOME CARE DOCUMENTATION FORM, IMPORTANT VISIT INFORMATION Patient Instructions My [facility] Additional Instructions Rest. Return tomorrow to see Dr. Ricardo and have your left lung drained Return sooner if shortness of breath, chest pain, worsening of symptoms, fever or chills, any new problems or concerns Problem Qualifiers
[2017-10-02 09:25] LABS: BASO % 0.3 %; BASO ABS # 0.04 K/uL (0-0.2); EOS % 8.2 %; EOS ABS # 0.99 K/uL (0-0.5); HEMATOCRIT 38.5 % (37-47); IG# 0.03 K/uL (0.00-0.02); LYMPH % 14.2 %; LYMPH ABS # 1.71 K/uL (1.2-3.4); MEAN CELL VOLUME 93.4 fL (80-100); MEAN CORPUSCULAR HEMOGLOBIN 31.6 pg (25-34); MEAN CORPUSCULAR HGB CONC 33.8 g/dl (32-36); MEAN PLATELET VOLUME 10.7 fL (7.4-10.4); MONO % 7.4 %; MONO ABS # 0.89 K/uL (0.11-0.59); NEUT % 69.7 %; PLATELET COUNT 264 K/uL (130-400); RED CELL DISTRIBUTION WIDTH CV 16.1 % (11.5-14.5); RED CELL DISTRIBUTION WIDTH SD 55.6 fL (36.4-46.3); WHITE BLOOD COUNT 12.06 K/uL (4.8-10.8)
--- NOTE | 2017-10-02 09:27 | DIAGNOSTIC IMAGING REPORT ---
CHEST ONE VIEW PORTABLE CLINICAL HISTORY: 86 years-old Female presenting with CHEST PAIN. TECHNIQUE: Portable upright AP view of the chest was obtained. COMPARISON: 09/27/2017. FINDINGS: Atherosclerosis of aortic arch. Cardiac silhouette enlarged. Mediastinal surgical clips and prosthetic aortic valve again noted. Decreased right basilar opacity. Persistent left basilar opacity. Decreased right pleural effusion with persistent small left pleural effusion. No pneumothorax. Degenerative changes of the thoracic spine. Superior subluxation of the right humeral head could suggest complete rotator cuff tear. Upper abdomen normal. IMPRESSION: 1. Slight improved aeration of the right lung base with decreased pleural effusion. Persistent left is opacity and left pleural effusion. 2. Cardiomegaly. Electronically signed by: Earle Aguilar M.D. 10/02/2017 9:26 AM Dictated Date/Time: 10/02/2017 9:24 AM
[2017-10-02 09:34] LABS: PTT PATIENT 25.2 SECONDS (21.0-31.0)
[2017-10-02 09:38] LABS: ALBUMIN 3.2 gm/dl (3.4-5.0); CALCIUM 8.6 mg/dl (8.5-10.1); CREATININE 1.05 mg/dl (0.60-1.20); POTASSIUM 3.8 mmol/L (3.5-5.1)
[2017-10-02 09:43] LABS: TOTAL PROTEIN 6.4 gm/dl (6.4-8.2)
--- NOTE | 2017-10-02 12:09 | Pulmonary Consultation ---
History General Date of Service: Oct 02, 2017. Stated Complaint: CHF exacerbation with associated shortness of breath and bilateral pleural effusions HPI The patient is a 86 year old female who presents to [facility] with complaints of Breathing. The patient's primary care provider is Lottie Winn MD. 86-year-old female with long history of CHF exacerbation bilateral pleural effusions presents today with once again progressive dyspnea on exertion. She was recently seen in the emergency room last Dev requiring thoracentesis of the right side with approximately 1.4 L removed. At this time she represents with similar dyspnea on exertion and sometimes at rest. She denies: Fever, chills, productive cough or notable weight gain. 86-year-old female with history of CHF with bilateral pleural effusions, TAVR and moderate obstructive ventilatory disease with an FEV1 of 69% with a 2-3 day history of progressive dyspnea on exertion. Over the last 2 days the patient's home health care providers of noticed a drop in her SaO2 6 via pulse oximetry the been documented down to at least 87 but reportedly down to possibly 82%. Due to this the patient admitted presented to the emergency room. During our conversation the patient denies: Fever, chills, productive cough, pleurisy, classic cardiac chest pain. Thoracentesis: Right-sided 08/19/2017: Left-sided 08/19/2017: Echocardiogram 08/16/2017 Left ventricular systolic function is normal. No regional wall motion abnormalities noted. Ejection Fraction = 60-65%. There is mild concentric left ventricular hypertrophy. Diastolic dysfunction, Grade II (pseudonormalization pattern). The gradient is normal for this prosthetic aortic valve. Mild aortic regurgitation. There is mild mitral regurgitation. There is mild tricuspid regurgitation. CT angiogram of the chest 07/22/2017, 08/16/[address] of the chest 08/19/2017. Active Problems 1. Acute congestive heart failure, unspecified congestive heart failure type ( I50.9) 2. Acute cystitis (N30.00) 3. Carotid bruit (R09.89) 4. Chronic renal insufficiency (N18.9) 5. Community acquired pneumonia (J18.9) 6. Diabetes mellitus (E11.9) 7. Diarrhea (R19.7) 8. Dyslipidemia (E78.5) 9. Dyspnea on exertion (R06.09) 10. Fatigue (R53.83) 11. Hearing loss (H91.90) 12. Hypertension (I10) 13. Hypothyroidism (E03.9) 14. Intermittent claudication (I73.9) 15. Left bundle-branch block (I44.7) 16. Lung nodule seen on imaging study (R91.1) 17. Mass of middle lobe of right lung (R91.8) 18. Muscle cramps (R25.2) 19. Osteopenia (M85.80) 20. Pain and swelling of wrist (M25.539,M25.439) 21. Periodic limb movement disorder (G47.61) 22. Pleural effusion (J90) 23. 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 Rhinorrhea (J34.89) 25. 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 History of Severe aortic stenosis (I35.0) 27. Shortness of breath on exertion (R06.02) 28. 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 Urinary symptom or sign (R39.9) 30. Vitamin D deficiency (E55.9) 31. Vitiligo (L80) Past Medical History 1. History of External ear disorder (H61.90) 2. History of diabetes mellitus (Z86.39) 3. History of Hypertension (I10) 4. History of Hypothyroidism (E03.9) 5. History of Left arm pain (M79.602) 6. History of Localized swelling, mass and lump, left upper limb (R22.32) 7. History of Severe aortic stenosis (I35.0) Surgical History 1. History of Aortic Valve Replacement 2. History of Appendectomy 3. History of Breast Surgery Lumpectomy 4. History of Cataract Surgery 5. History of Complete Colonoscopy 6. Denied: History of Surgery Family History 1. Denied: Family history of colon cancer 2. Denied: Family history of malignant neoplasm of breast 3. Denied: Family history of malignant neoplasm of ovary 4. Denied: Family history of malignant neoplasm of prostate 5. Denied: Family history of myocardial infarction 6. Denied: Family history of colon cancer 7. Denied: Family history of malignant neoplasm of breast 8. Denied: Family history of malignant neoplasm of ovary 9. Denied: Family history of malignant neoplasm of prostate 10. Family history of myocardial infarction (Z82.49) 11. Denied: Family history of colon cancer 12. Denied: Family history of malignant neoplasm of breast 13. Denied: Family history of malignant neoplasm of ovary 14. Denied: Family history of malignant neoplasm of prostate 15. Denied: Family history of myocardial infarction 16. Family history of diabetes mellitus (Z83.3) 17. Family history of Atherosclerosis 18. Denied: Family history of colon cancer 19. Denied: Family history of malignant neoplasm of breast 20. Denied: Family history of malignant neoplasm of ovary 21. Denied: Family history of malignant neoplasm of prostate 22. Denied: Family history of myocardial infarction Social History Denied: History of Alcohol Use (History) Dental care, regularly Does not use illicit drugs (Z78.9) Drug Use Exercises 3 to 4 times per week (Z78.9) Former smoker (Z87.891) Living situation Never used moist powdered tobacco (Z78.9) No secondhand smoke exposure (Z78.9) Rarely consumes alcohol (Z78.9) Retired Special needs due to hearing impairment (H91.90) Denied: History of Special needs due to visual impairment (Z63.4) Current Meds 1. Vortex Valved Holding Chamber Device; use with inhaler; 2. BD Pen Needle Mini U/F 31G X 5 MM; Inject bid; 3. NovoFine 32G X 6 MM; USE TWICE A DAY DIRECTED; 4. OneTouch Ultra Blue In Vitro Strip; TEST three times a day; 5. Sure Comfort Pen [place] 32G X 4 MM; USE TWICE A DAY DIRECTED; 6. Lantus SoloStar 100 UNIT/ML Subcutaneous Solution Pen-injector; INJECT 12 UNITS IN 7. Diphenoxylate-Atropine 2.5-0.025 MG Oral Tablet; take 1 tablet by mouth four times a day 8. Atorvastatin Calcium 20 MG Oral Tablet; Take 1 tablet daily; 9. D 1000 1000 UNIT Oral Capsule; TAKE 2 CAPSULES DAILY; 10. ICaps MV Oral Tablet; TAKE 1 TABLET DAILY; 11. Ocuvite TABS; TAKE 1 TABLET DAILY; 12. Vitamin B-12 1000 MCG Oral Tablet; Take 2 tablets daily as directed; 13. AmLODIPine Besylate 5 MG Oral Tablet; TAKE 1 TABLET EVERY DAY in PM; 14. Benazepril HCl - 20 MG Oral Tablet; TAKE 1 TABLET DAILY; 15. Furosemide 20 MG Oral Tablet; Take 2 tablets daily; 16. Levoxyl 75 MCG Oral Tablet; TAKE 1 TABLET BY MOUTH ONCE DAILY; 17. Meloxicam 15 MG Oral Tablet; take 1 tablet by mouth once a day for pain; 18. ROPINIRole HCl - 1 MG Oral Tablet; TAKE 1 TABLET AT BEDTIME; 19. Combivent Respimat 20-100 MCG/ACT Inhalation Aerosol Solution; INHALE 1 PUFF 4 20. Aspirin 81 MG TABS; TAKE 1 TABLET DAILY; 21. Sure Comfort Pen [place] 32G X 4 MM; USE TWICE A DAY DIRECTED; 22. Bromfenac Sodium (Once-Daily) 0.09 % Ophthalmic Solution; INSTILL 1 DROP INTO 23. Metoprolol Tartrate 25 MG Oral Tablet; Take 1/2 tablet (12.5mg) BID; 24. Systane 0.4-0.3 % Ophthalmic Solution; 1 drop both eyes daily; Allergies 1. OxyCODONE HCl TABS 2. MetFORMIN HCl TABS Historian: patient, family, EMS Review of Systems Constitutional: reports: malaise Eyes: reports: no symptoms ENT: reports: no symptoms Cardiovascular: reports: as stated in HPI Respiratory: reports: as stated in HPI Gastrointestinal: reports: no symptoms Genitourinary - Female: reports: no symptoms Musculoskeletal: reports: no symptoms Integumentary: reports: no symptoms Neurologic: reports: no symptoms Psychiatric: reports: no symptoms Endocrine: no symptoms Hematologic / Lymphatic: no symptoms Allergic / Immunologic: no symptoms Past Medical History Past Medical History: Please refer to HPI Past Surgical History: Please refer to HPI Family History Diabetes mellitus FH: hypertension Heart disease Please refer to HPI Social History Please refer to HPI Hx Tobacco Use In Past Year?: No Smoking Status: Never Smoker Marital status: Housing status: lives alone Occupational Status: retired History of MDRO History of MDRO: No Allergies Coded Allergies: Metformin (Unverified Adverse Reaction, Unknown, ., 09/27/17) Oxycodone (Unverified Adverse Reaction, Unknown, HALLUCINATIONS, 09/27/17) Historian: patient, family, EMS Review of Systems Constitutional: reports: as stated in HPI Eyes: reports: no symptoms ENT: reports: nasal congestion Cardiovascular: reports: as stated in HPI Respiratory: reports: as stated in HPI Gastrointestinal: reports: no symptoms Genitourinary - Female: reports: no symptoms Musculoskeletal: reports: no symptoms Integumentary: reports: no symptoms Neurologic: reports: no symptoms Psychiatric: reports: no symptoms Endocrine: no symptoms Hematologic / Lymphatic: no symptoms Allergic / Immunologic: no symptoms Past Medical History Past Medical History: Please refer to history of present illness Past Surgical History: Please refer to history of present illness Family History Diabetes mellitus FH: hypertension Heart disease Please refer to history of present illness Social History Hx Tobacco Use In Past Year?: No Smoking Status: Never Smoker Marital status: Housing status: lives alone Occupational Status: retired History of MDRO History of MDRO: No Allergies Coded Allergies: Metformin (Unverified Adverse Reaction, Unknown, ., 10/02/17) Oxycodone (Unverified Adverse Reaction, Unknown, HALLUCINATIONS, 10/02/17) Current Medications Reported Home Medications Medications Dose Route/Sig Max Daily Dose Days Date Category Dose Instructions Combivent Respimat (Ipratropium-Albuterol) 1 Aer Aer 1 Puffs INH QID PRN 09/27/17 Reported Mobic (Meloxicam) 7.5 Mg Tab 7.5 Mg PO DAILY 09/27/17 Reported Lomotil 2.5-0.025 mg (Diphenoxylate HCl/Atropine) 1 Ea Tab 1 Tab PO BID 09/27/17 Reported Lopressor (Metoprolol Tartrate) 25 Mg Tab 12.5 Mg PO BID 30 09/06/17 Rx Lasix (Furosemide) 20 Mg Tab 20 Mg PO DAILY 08/11/17 Reported D 1000 (Cholecalciferol) 1,000 Unit Cap 2,000 Units PO DAILY 07/22/17 Reported Requip (Ropinirole HCl) 1 Mg Tab 1 Mg PO HS 07/18/17 Reported Lipitor (Atorvastatin Calcium) 20 Mg Tab 20 Mg PO HS 07/18/17 Reported Lantus Solostar (Insulin Glargine) 100 Unit/Ml Inj 10 Units SQ QPM 07/18/17 Reported Lantus Solostar (Insulin Glargine) 100 Unit/Ml Inj 12 Units SQ QAM 07/18/17 Reported Levothyroxine Sodium 75 Mcg Tab 75 Mcg PO DAILY 07/18/17 Reported Systane (Polyethylene Glycol-Propylene) 1 Gladys Gladys 1 Drops OP QPM 01/02/16 Reported Prolensa (Bromfenac Sodium (Ophth)) 0.07 % Gladys 1 Drop OPB QAM 01/02/16 Reported Aspirin Ec (Aspirin) 81 Mg Tab 81 Mg PO HS 01/02/16 Reported Icaps (Multiple Vitamins W/ Minerals) 1 Cap Cap 1 Cap PO DAILY 01/02/16 Reported Ocuvite Preservision (Multivitamins/Minerals) 1 Tab Tab 1 Tab PO DAILY 01/02/16 Reported Vitamin B-12 1000 Mcg (Cyanocobalamin) 1,000 Mcg Tab 2,000 Mcg PO DAILY 01/02/16 Reported Norvasc (Amlodipine Besylate) 5 Mg Tab 5 Mg PO HS 09/24/11 Reported Lotensin (Benazepril HCl) 40 Mg Tab 20 Mg PO DAILY 09/24/11 Reported 1/2 TABLET DOSE Physical Physical Exam Vital Signs: Date Time Temp Pulse Resp B/P (MAP) Pulse Ox O2 Delivery O2 Flow Rate FiO2 10/02/17 11:53 76 22 139/67 86 Room Air 10/02/17 09:07 70 10/02/17 09:00 93 Nasal Cannula 2.0 10/02/17 08:56 36.4 76 24 165/69 87 Room Air General Appearance: mild distress Head: NORMOCEPHALIC, ATRAUMATIC Eyes: PERRLA, NO DISCHARGE, EOMI, SCLERAE NORMAL ENT: NORMAL EAR EXAM, NORMAL NASAL EXAM, other (mild nasal erythema) Neck: NORMAL RANGE OF MOTION, NO TENDERNESS, TRACHEA MIDLINE, NO STRIDOR Respiratory: accessory muscle use, other (normal crackles and decreased breath sounds with dullness percussion at the bases ultrasound shows bilateral pleural effusions moderate size bilaterally equal in size.) Cardiovasular: NORMAL S1S2, systolic murmur Abdomen: NON TENDER, NORMAL BOWEL SOUNDS, NO REBOUND, NO MASSES, NO GUARDING Genitourinary - Female: EXTERNAL GENITALIA NORMAL Back: NORMAL INSPECTION, NO MIDLINE TENDERNESS, NO CVA TENDERNESS, NO PARAVERTEBRAL TTP, NORMAL RANGE OF MOTION Upper Extremities: NO EDEMA, NO DEFORMITY, NORMAL ROM Lower Extremities: other (minimal 1+ pitting edema bilaterally lower extremities) Pulses: carotid (R) (2+), carotid (L) (2+) Neuro: ALERT, ORIENTED x 3, NORMAL MOTOR EXAM, NORMAL SENSATION Reflexes: biceps (R) (2+), bicpes (L) (2+), achilles (R) (2+), achilles (L) (2+ ) Babinski Testing: right (downgoing), left (downgoing) Psychiatric: NORMAL AFFECT, NO SUICIDAL IDEATION, CONTRACTS FOR SAFETY Diagnostics Labs Results Past 24 Hours Test 10/02/17 09:12 10/02/17 09:15 Range/Units White Blood Count 12.06 4.8-10.8 K/uL Red Blood Count 4.12 4.2-5.4 M/uL Hemoglobin 13.0 12.0-16.0 g/dL Hematocrit 38.5 37-47 % Mean Corpuscular Volume 93.4 80-100 fL Mean Corpuscular Hemoglobin 31.6 25-34 pg Mean Corpuscular Hemoglobin Concent 33.8 32-36 g/dl Platelet Count 264 130-400 K/uL Mean Platelet Volume 10.7 7.4-10.4 fL Neutrophils (%) (Auto) 69.7 % Lymphocytes (%) (Auto) 14.2 % Monocytes (%) (Auto) 7.4 % Eosinophils (%) (Auto) 8.2 % Basophils (%) (Auto) 0.3 % Neutrophils # (Auto) 8.40 1.4-6.5 K/uL Lymphocytes # (Auto) 1.71 1.2-3.4 K/uL Monocytes # (Auto) 0.89 0.11-0.59 K/uL Eosinophils # (Auto) 0.99 0-0.5 K/uL Basophils # (Auto) 0.04 0-0.2 K/uL RDW Standard Deviation 55.6 36.4-46.3 fL RDW Coefficient of Variation 16.1 11.5-14.5 % Immature Granulocyte % (Auto) 0.2 % Immature Granulocyte # (Auto) 0.03 0.00-0.02 K/uL Prothrombin Time 10.5 9.0-12.0 SECONDS Prothromb Time International Ratio 1.0 0.9-1.1 Activated Partial Thromboplast Time 25.2 21.0-31.0 SECONDS Partial Thromboplastin Ratio 1.0 Sodium Level 143 136-145 mmol/L Potassium Level 3.8 3.5-5.1 mmol/L Chloride Level 111 98-107 mmol/L Carbon Dioxide Level 23 21-32 mmol/L Anion Gap 9.0 3-11 mmol/L Blood Urea Nitrogen 27 7-18 mg/dl Creatinine 1.05 0.60-1.20 mg/dl Est Creatinine Clear Calc Drug Dose 31.0 ml/min Estimated GFR () 56.1 Estimated GFR (Non- 48.4 BUN/Creatinine Ratio 25.2 10-20 Random Glucose 94 70-99 mg/dl Calcium Level 8.6 8.5-10.1 mg/dl Total Bilirubin 0.5 0.2-1 mg/dl Direct Bilirubin 0.1 0-0.2 mg/dl Aspartate Amino Transf (AST/SGOT) 42 15-37 U/L Alanine Aminotransferase (ALT/SGPT) 68 12-78 U/L Alkaline Phosphatase 90 45-117 U/L Pro-B-Type Natriuretic Peptide 5902 0-1800 pg/ml Total Protein 6.4 6.4-8.2 gm/dl Albumin 3.2 3.4-5.0 gm/dl Lipase 209 73-393 U/L Bedside Troponin I 0.060 0-0.045 ng/ml Diagnostic Radiology Hilar fullness with cephalization and notable costophrenic blunting of the left side and minimal costophrenic blunting of the right EKG Left bundle-branch block no change in sinus rate Impression Assessment and Plan 86-year-old female with CHF exacerbation now chronic in nature and bilateral pleural effusions: #1 pleural effusion: Patient has once again agreed to undergo thoracentesis. As both sides ultrasonographic we appear similar we'll repeat the thoracentesis on the right side. The patient is set up to have an outpatient thoracentesis tomorrow and we will reevaluate and possibly proceed with a left-sided thoracentesis at that time. #2 hypoxia: We'll wait to see how patient responds a thoracentesis at this time needs 2 L nasal cannula for support. We'll wait 2 hours and then reevaluate patient may need two-step process to see if she will meet requirements for home O2.
--- NOTE | 2017-10-02 12:11 | Procedure Note ---
Procedure Note Date of Service Oct 02, 2017. Procedure Note Procedures: Right sided Thoracentesis Consent: obtained via the patient and placed into the chart Pre-Procedural Dx: Bilateral CHF induced pleural effusions Post-Procedural Dx: Bilateral CHF induced pleural effusions Analgesia: 8cc of 1% Liquid Lidocaine Procedure: The patient was placed in an upright position and thoracic US was used to select a spot for the procedure. A spot along the posterior axillary line was marked in the 7th intercostal space. The patient was then draped and prepped in a sterile fashion. A modified Seldinger technique was then used for catheter placement. Flowing this approximately 600 cc of serosanguineous pleural fluid was removed. The patient was then cleaned and placed at a 60 degree angle in the bed were the US was used to evaluate for possible pneumothorax. The US showed good lung sliding and starry night sign. A postprocedural upright ultrasonic evaluation of the effusion was also performed showing no residual effusion at this time. EBL: None Complications: None
[2017-10-02 13:14] LABS: PLEURAL FLUID TOTAL PROTEIN 1.2 g/dl
[2017-10-02 13:47] VITALS: BP 118/52
[2017-10-02 14:50] VITALS: PULSE 75; O2SAT 93
[2017-10-03] MEDS ORDERED: FLUT1INH INH ×2 (11:52)
== END 2017-10-02 14:50 | disposition home or self-care (01) ==
LOC: C.EDB 08:47 → C.EDA 14:50
DX: J90 Pleural effusion, not elsewhere classified (principal); I11.0 Hypertensive heart disease with heart failure; I50.9 Heart failure, unspecified; E11.40 Type 2 diabetes mellitus with diabetic neuropathy, unspecified; Z95.2 Presence of prosthetic heart valve; Z79.4 Long term (current) use of insulin; Z79.82 Long term (current) use of aspirin; Z79.1 Long term (current) use of non-steroidal anti-inflammatories (NSAID); Z83.3 Family history of diabetes mellitus; Z82.49 Family history of ischemic heart disease and other diseases of the circulatory system

== ENCOUNTER → 2017-10-03 | Day surgery (SDC) | payer BC ==
[~2017-10-03] VITALS: Ht 158.8 cm; Wt 55.4 kg
[~2017-10-03] MED LIST changes: +FLUT1INH INH
[2017-10-03 11:54] VITALS: BP 151/67; PULSE 78; TEMP 36.7; Ht 158.8 cm; Wt 55.4 kg
--- NOTE | 2017-10-03 11:55 | History & Physical Bridge Note ---
H&P Re-Evaluation Bridge Note: I have examined the patient, reviewed the History & Physical and in the interval since the performance of the History & Physical I have noted the following changes of clinical significance: No changes noted
--- NOTE | 2017-10-03 11:55 | History and Physical ---
History & Physical Date of Service Oct 03, 2017. History & Physical 86-year-old female with long history of CHF exacerbation bilateral pleural effusions with continued SOB presenting to day for a left sided thoracentesis. 86-year-old female with history of CHF with bilateral pleural effusions, TAVR and moderate obstructive ventilatory disease with an FEV1 of 69% with a 2-3 day history of progressive dyspnea on exertion. Over the last 2 days the patient's home health care providers of noticed a drop in her SaO2 6 via pulse oximetry the been documented down to at least 87 but reportedly down to possibly 82%. Due to this the patient admitted presented to the emergency room. During our conversation the patient denies: Fever, chills, productive cough, pleurisy, classic cardiac chest pain. Thoracentesis: Right-sided 08/19/2017: Left-sided 08/19/2017: Echocardiogram 08/16/2017 Left ventricular systolic function is normal. No regional wall motion abnormalities noted. Ejection Fraction = 60-65%. There is mild concentric left ventricular hypertrophy. Diastolic dysfunction, Grade II (pseudonormalization pattern). The gradient is normal for this prosthetic aortic valve. Mild aortic regurgitation. There is mild mitral regurgitation. There is mild tricuspid regurgitation. CT angiogram of the chest 07/22/2017, 08/16/[address] of the chest 08/19/2017. Active Problems 1. Acute congestive heart failure, unspecified congestive heart failure type ( I50.9) 2. Acute cystitis (N30.00) 3. Carotid bruit (R09.89) 4. Chronic renal insufficiency (N18.9) 5. Community acquired pneumonia (J18.9) 6. Diabetes mellitus (E11.9) 7. Diarrhea (R19.7) 8. Dyslipidemia (E78.5) 9. Dyspnea on exertion (R06.09) 10. Fatigue (R53.83) 11. Hearing loss (H91.90) 12. Hypertension (I10) 13. Hypothyroidism (E03.9) 14. Intermittent claudication (I73.9) 15. Left bundle-branch block (I44.7) 16. Lung nodule seen on imaging study (R91.1) 17. Mass of middle lobe of right lung (R91.8) 18. Muscle cramps (R25.2) 19. Osteopenia (M85.80) 20. Pain and swelling of wrist (M25.539,M25.439) 21. Periodic limb movement disorder (G47.61) 22. Pleural effusion (J90) 23. 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 Rhinorrhea (J34.89) 25. 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 History of Severe aortic stenosis (I35.0) 27. Shortness of breath on exertion (R06.02) 28. 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 Urinary symptom or sign (R39.9) 30. Vitamin D deficiency (E55.9) 31. Vitiligo (L80) Past Medical History 1. History of External ear disorder (H61.90) 2. History of diabetes mellitus (Z86.39) 3. History of Hypertension (I10) 4. History of Hypothyroidism (E03.9) 5. History of Left arm pain (M79.602) 6. History of Localized swelling, mass and lump, left upper limb (R22.32) 7. History of Severe aortic stenosis (I35.0) Surgical History 1. History of Aortic Valve Replacement 2. History of Appendectomy 3. History of Breast Surgery Lumpectomy 4. History of Cataract Surgery 5. History of Complete Colonoscopy 6. Denied: History of Surgery Family History 1. Denied: Family history of colon cancer 2. Denied: Family history of malignant neoplasm of breast 3. Denied: Family history of malignant neoplasm of ovary 4. Denied: Family history of malignant neoplasm of prostate 5. Denied: Family history of myocardial infarction 6. Denied: Family history of colon cancer 7. Denied: Family history of malignant neoplasm of breast 8. Denied: Family history of malignant neoplasm of ovary 9. Denied: Family history of malignant neoplasm of prostate 10. Family history of myocardial infarction (Z82.49) 11. Denied: Family history of colon cancer 12. Denied: Family history of malignant neoplasm of breast 13. Denied: Family history of malignant neoplasm of ovary 14. Denied: Family history of malignant neoplasm of prostate 15. Denied: Family history of myocardial infarction 16. Family history of diabetes mellitus (Z83.3) 17. Family history of Atherosclerosis 18. Denied: Family history of colon cancer 19. Denied: Family history of malignant neoplasm of breast 20. Denied: Family history of malignant neoplasm of ovary 21. Denied: Family history of malignant neoplasm of prostate 22. Denied: Family history of myocardial infarction Social History Denied: History of Alcohol Use (History) Dental care, regularly Does not use illicit drugs (Z78.9) Drug Use Exercises 3 to 4 times per week (Z78.9) Former smoker (Z87.891) Living situation Never used moist powdered tobacco (Z78.9) No secondhand smoke exposure (Z78.9) Rarely consumes alcohol (Z78.9) Retired Special needs due to hearing impairment (H91.90) Denied: History of Special needs due to visual impairment (Z63.4) Current Meds 1. Vortex Valved Holding Chamber Device; use with inhaler; 2. BD Pen Needle Mini U/F 31G X 5 MM; Inject bid; 3. NovoFine 32G X 6 MM; USE TWICE A DAY DIRECTED; 4. OneTouch Ultra Blue In Vitro Strip; TEST three times a day; 5. Sure Comfort Pen [place] 32G X 4 MM; USE TWICE A DAY DIRECTED; 6. Lantus SoloStar 100 UNIT/ML Subcutaneous Solution Pen-injector; INJECT 12 UNITS IN 7. Diphenoxylate-Atropine 2.5-0.025 MG Oral Tablet; take 1 tablet by mouth four times a day 8. Atorvastatin Calcium 20 MG Oral Tablet; Take 1 tablet daily; 9. D 1000 1000 UNIT Oral Capsule; TAKE 2 CAPSULES DAILY; 10. ICaps MV Oral Tablet; TAKE 1 TABLET DAILY; 11. Ocuvite TABS; TAKE 1 TABLET DAILY; 12. Vitamin B-12 1000 MCG Oral Tablet; Take 2 tablets daily as directed; 13. AmLODIPine Besylate 5 MG Oral Tablet; TAKE 1 TABLET EVERY DAY in PM; 14. Benazepril HCl - 20 MG Oral Tablet; TAKE 1 TABLET DAILY; 15. Furosemide 20 MG Oral Tablet; Take 2 tablets daily; 16. Levoxyl 75 MCG Oral Tablet; TAKE 1 TABLET BY MOUTH ONCE DAILY; 17. Meloxicam 15 MG Oral Tablet; take 1 tablet by mouth once a day for pain; 18. ROPINIRole HCl - 1 MG Oral Tablet; TAKE 1 TABLET AT BEDTIME; 19. Combivent Respimat 20-100 MCG/ACT Inhalation Aerosol Solution; INHALE 1 PUFF 4 20. Aspirin 81 MG TABS; TAKE 1 TABLET DAILY; 21. Sure Comfort Pen [place] 32G X 4 MM; USE TWICE A DAY DIRECTED; 22. Bromfenac Sodium (Once-Daily) 0.09 % Ophthalmic Solution; INSTILL 1 DROP INTO 23. Metoprolol Tartrate 25 MG Oral Tablet; Take 1/2 tablet (12.5mg) BID; 24. Systane 0.4-0.3 % Ophthalmic Solution; 1 drop both eyes daily; Allergies 1. OxyCODONE HCl TABS 2. MetFORMIN HCl TABS Historian: patient, family, EMS
[2017-10-03 12:50] VITALS: BP 145/61; PULSE 74; TEMP 37.1; O2SAT 95
--- NOTE | 2017-10-03 13:06 | Procedure Note ---
Procedure Note Date of Service Oct 03, 2017. Procedure Note Procedures: left sided Thoracentesis Consent: obtained via the patient and placed into the chart Pre-Procedural Dx: Post-Procedural Dx: Analgesia: 8cc of 1% Liquid Lidocaine Procedure: The patient was placed in an upright position and thoracic US was used to select a spot for the procedure. A spot along the posterior axillary line was marked in the 7th intercostal space. The patient was then draped and prepped in a sterile fashion. A modified Seldinger technique was then used for catheter placement. Flowing this approximately 1000cc of yellow pleural fluid was removed. The patient was then cleaned and placed at a 60 degree angle in the bed were the US was used to evaluate for possible pneumothorax. The US showed good lung sliding and starry night sign. EBL: none Complications: none
--- NOTE | 2017-10-03 13:07 | Discharge Instructions ---
Discharge Instructions Date of Service Oct 03, 2017. Admission Reason for Admission: Pleural Effusion, Shortness Of Breath Discharge Discharge Diagnosis / Problem: CHF induced pleural effusion Discharge Goals Goal(s): Improve function, Diagnostic testing Activity Recommendations Activity Limitations: resume your previous activity . Instructions / Follow-Up Instructions / Follow-Up [facility] pulmonary clinic Current Hospital Diet Patient's current hospital diet: Discharge Diet Recommended Diet: AHA Diet (Heart Healthy) Procedures Procedures Performed: Left-sided ultrasound-guided thoracentesis Pending Studies Studies pending at discharge: no Laboratory Results Hemoglobin A1c Test 07/23/17 07:00 Range/Units Estimated Average Glucose 151 mg/dl Hemoglobin A1c 6.9 H 4.5-5.6 % Lipid Panel Test 09/04/17 14:40 Range/Units Triglycerides Level 83 0-150 mg/dl Cholesterol Level 147 0-200 mg/dl HDL Cholesterol 54 mg/dl Cholesterol/HDL Ratio 2.7 LDL Cholesterol, Calculated 76 mg/dl Medical Emergencies . Who to Call and When: Medical Emergencies: If at any time you feel your situation is an emergency, please call 911 immediately. . Non-Emergent Contact Non-Emergency issues call your: Printing Worker Supervisor . . "Provider Documentation" section prepared by Jas Ricardo. . VTE Core Measure Inpt VTE Proph given/why not?: Treatment not indicated
[2017-10-03 13:10] VITALS: BP 132/60; PULSE 58; O2SAT 96
[2017-10-03 13:39] LABS: PLEURAL FLUID TOTAL PROTEIN 1.7 g/dl
== END | disposition home or self-care (01) ==
LOC: C.ACU 10:55
PROVIDERS: ATTEND Internal Medicine Critical Care Medicine
DX: J90 Pleural effusion, not elsewhere classified (principal); I50.9 Heart failure, unspecified; N18.9 Chronic kidney disease, unspecified; E11.9 Type 2 diabetes mellitus without complications; E78.5 Hyperlipidemia, unspecified; I11.0 Hypertensive heart disease with heart failure; E03.9 Hypothyroidism, unspecified; E11.42 Type 2 diabetes mellitus with diabetic polyneuropathy; I35.0 Nonrheumatic aortic (valve) stenosis; E55.9 Vitamin D deficiency, unspecified; Z87.891 Personal history of nicotine dependence; Z79.899 Other long term (current) drug therapy; Z79.4 Long term (current) use of insulin; Z79.82 Long term (current) use of aspirin

== ENCOUNTER → 2017-10-11 | Outpatient (CLI) | payer BC ==
[2017-10-11 14:51] LABS: BLOOD UREA NITROGEN 30 mg/dl (7-18); CALCIUM 9.1 mg/dl (8.5-10.1); CARBON DIOXIDE 24 mmol/L (21-32); CREATININE 1.24 mg/dl (0.60-1.20); GLUCOSE 76 mg/dl (70-99); POTASSIUM 4.4 mmol/L (3.5-5.1); SODIUM 142 mmol/L (136-145)
== END | disposition home or self-care (01) ==
LOC: C.LAB1850 13:04
PROVIDERS: ATTEND Physician Assistant Medical
DX: G62.9 Polyneuropathy, unspecified (principal); I50.9 Heart failure, unspecified

== ENCOUNTER → 2017-10-31 | Outpatient (CLI) | payer BC ==
[2017-10-31 11:40] LABS: BLOOD UREA NITROGEN 40 mg/dl (7-18); CALCIUM 8.9 mg/dl (8.5-10.1); CARBON DIOXIDE 28 mmol/L (21-32); CREATININE 1.23 mg/dl (0.60-1.20); GLUCOSE 70 mg/dl (70-99); POTASSIUM 4.9 mmol/L (3.5-5.1); SODIUM 141 mmol/L (136-145)
== END | disposition home or self-care (01) ==
LOC: C.LABBC 09:07
PROVIDERS: ATTEND Physician Assistant Medical
DX: I50.31 Acute diastolic (congestive) heart failure (principal); R06.09 Other forms of dyspnea

== ENCOUNTER → 2017-11-07 | Outpatient (CLI) | payer BC ==
--- NOTE | 2017-11-07 11:34 | DIAGNOSTIC IMAGING REPORT ---
(CHEST) THORAX WITHOUT CT DOSE: 231.26 mGy.cm HISTORY: Nodule R91.1 Lung nodule seen on imaging [id number] TECHNIQUE: Multiaxial CT images of the chest were performed without contrast. A dose lowering technique was utilized adhering to the principles of ALARA. COMPARISON: 08/19/2017 FINDINGS: Moderate increase in volume of bilateral pleural effusions. Stable postoperative changes including stent placement of the aortic valve region. No significant cardiomegaly. Small fixed hiatal hernia unchanged. The right hilar well-circumscribed nodule is essentially unchanged. Central foci of calcification are present. There is a small focus of pleural-based atelectatic and nodular change transaxial images 32 not present on the prior study. Lungs otherwise appear clear. There are no focal infiltrative changes. IMPRESSION: 1. Unchanged nodular density right hilum with associated central calcification. 2. Interval development of a small 5 mm pleural-based nodular density lateral aspect right midlung. 3. Mild interval increase in volume of bilateral pleural effusions. 4. A six-month follow-up is suggested The above report was generated using voice recognition software. It may contain grammatical, syntax or spelling errors. Electronically signed by: Moose Diego M.D. 11/07/2017 11:33 AM Dictated Date/Time: 11/07/2017 11:26 AM
== END | disposition home or self-care (01) ==
LOC: C.CTS 11:08
PROVIDERS: ATTEND Family Medicine
DX: R91.8 Other nonspecific abnormal finding of lung field (principal); J90 Pleural effusion, not elsewhere classified

== ENCOUNTER → 2018-01-02 | Outpatient (CLI) | payer BC ==
[2018-01-02 11:27] LABS: HEMOGLOBIN A1C 6.7 % (4.5-5.6)
== END | disposition home or self-care (01) ==
LOC: C.LABBC 07:48
PROVIDERS: ATTEND Family Medicine
DX: I10 Essential (primary) hypertension (principal); E11.9 Type 2 diabetes mellitus without complications; E03.9 Hypothyroidism, unspecified

== ENCOUNTER → 2018-04-01 | Outpatient (CLI) | payer BC ==
[~2018-04-01] MED LIST changes: -AMLO-110 PO; +AMLO5TAB3 PO
--- NOTE | 2018-04-02 14:56 | MAMMOGRAPHY REPORT ---
BILATERAL DIGITAL SCREENING MAMMOGRAM TOMOSYNTHESIS WITH CAD: 04/01/2018 CLINICAL HISTORY: Routine screening. TECHNIQUE: The study was acquired using full field digital technology and interpreted from soft copy. Breast tomosynthesis in addition to standard 2D mammography was performed. Current study was also ev aluated with a Computer Aided Detection (CAD) system. COMPARISON: Comparison is made to exams dated: 07/09/2016 mammogram, 07/05/2015 mammogram, 06/28/2014 mammogram, 06/25/2013 mammogram, 06/04/2012 mammogram, and 05/31/2011 mammogram - [facility]. BREAST COMPOSITION: The tissue of both breasts is heterogeneously dense, which may obscure small mass es. FINDINGS: There are diffuse bilateral benign rodlike secretory calcifications in the breasts. There is asymmetry, skin irregularity and punctate densities in the superior posterior, medial right breast on the MLO view, that is stable comparing to the 2016 mammograms and is likely related to scarring f rom the patient's TAVR surgery. No suspicious mass, architectural distortion or cluster of microcalci fications is seen. IMPRESSION: ACR BI-RADS CATEGORY 2: BENIGN There is no mammographic evidence of malignancy. A 1 year screening mammogram is recommended.( 019) The patient will receive written notification of the results. Some breast cancers are not detected with mammography. A negative mammographic report should not yanely y biopsy if a clinically suggestive mass is present. Mojgan Diaz M.D. ay/:04/01/2018 15:21:52 Executive Advisor: RT Angela(Jeovany)(M), [facility] letter sent: Normal 1/2 BI-RADS Code: ACR BI-RADS Category 2: Benign
== END | disposition home or self-care (01) ==
LOC: C.MAMM 14:39
PROVIDERS: ATTEND Family Medicine
DX: Z12.31 Encounter for screening mammogram for malignant neoplasm of breast (principal); M85.851 Other specified disorders of bone density and structure, right thigh

== ENCOUNTER 2018-10-10 09:45 | Inpatient (IN) ==
[2018-10-10] MEDS ORDERED: methylPREDNISolone 125 MG/2 ML VIAL IV STA (10:40)
[2018-10-10] MEDS ORDERED: ALBUT/IPRATROP 3MG/0.5MG NEB 3 ML VIAL NEB STA (10:40)
[2018-10-10 10:45] LABS: Basophils # (auto) 0.02 K/uL (0-0.2); Basophils % (auto) 0.1 %; Eosinophils # (auto) 0.01 K/uL (0-0.5); Eosinophils % (auto) 0.1 %; Hemoglobin 12.7 g/dL (12.0-16.0); Immature Granulocytes # (auto) 0.05 K/uL (0.00-0.02); Immature Granulocytes % (auto) 0.3 %; Lymphocytes # (auto) 1.45 K/uL (1.2-3.4); Lymphocytes % (auto) 9.3 %; Mean Corpuscular Hgb Conc 33.4 g/dL (32-36); Mean Corpuscular Volume 97.7 fL (80-100); Mean Platelet Volume 11.1 fL (7.4-10.4); Monocytes # (auto) 1.91 K/uL (0.11-0.59); Monocytes % (auto) 12.3 %; Neutrophils # (auto) 12.14 K/uL (1.4-6.5); Neutrophils % (auto) 77.9 %; Platelet Count 252 K/uL (130-400); RDW Coefficient of Variation 15.1 % (11.5-14.5); RDW Standard Deviation 53.3 fL (36.4-46.3); Red Blood Count 3.89 M/uL (4.2-5.4); White Blood Count 15.58 K/uL (4.8-10.8)
[2018-10-10 10:56] LABS: INR 1.1 (0.9-1.1); Partial Thromboplastin Time 25.9 Seconds (21.0-31.0); Prothrombin Time 10.8 Seconds (9.0-12.0)
--- NOTE | 2018-10-10 10:58 | XRay Report ---
XR chest 1V portable CLINICAL HISTORY: Dyspnea dyspnea COMPARISON STUDY: 10/02/2017 FINDINGS: Mild cardiomegaly. Prominent pulmonary vasculature. Diaphragms are smooth. IMPRESSION: Mild pulmonary vascular congestion. The above report was generated using voice recognition software. It may contain grammatical, syntax or spelling errors. Electronically signed by: Moose Diego M.D. 10/10/2018 10:56 AM
[2018-10-10 11:11] LABS: Albumin Level 3.1 gm/dl (3.4-5.0); BUN Creatinine Ratio 17.5 (10-20); Calcium 7.9 mg/dl (8.5-10.1); Creatinine Clr Calc Pharmacy 22.2 ml/min; Est GFR (African American) 34.2; Est GFR (Non-African American) 29.5; Magnesium 1.9 mg/dl (1.8-2.4); Potassium 4.2 mmol/L (3.5-5.1)
[2018-10-10 11:22] LABS: Albumin Globulin Ratio 0.8 (0.9-2); Total Protein 7.1 gm/dl (6.4-8.2); Troponin I 0.208 ng/ml (0-0.045)
[2018-10-10] MEDS ORDERED: OPTIRAY 320 125ml IV PRN (13:09)
--- NOTE | 2018-10-10 13:22 | CT Scan Report ---
CT angio chest PE protocol CT DOSE: 322.28 mGy.cm HISTORY: 87 years-old Female with acute dyspnea, hypoxia. Acute shortness of breath TECHNIQUE: Multiple CTA images of the chest were obtained after the intravenous administration of 92 ml Optiray 320. Coronal and sagittal MIPS were obtained from the axial data set and were submitted f or review. All measurements were obtained according to NASCET criteria. A dose lowering technique wa s utilized adhering to the principles of ALARA. COMPARISON: Chest CT 11/07/2017, 08/19/2017, 07/22/2017. FINDINGS: CTA: Moderate multichamber cardiac enlargement with mitral annular calcifications. Aortic valvular prosthe sis. Extensive mixed plaque formation about the thoracic aorta without aneurysm or dissection. There is patency about the imaged great vessels. The pulmonary arterial tree is opacified to level of the s ubsegmental branches and demonstrates no focal filling defects to suggest pulmonary thromboembolic di sease. CT CHEST: Heterogeneous appearance of the thyroid. Mildly prominent paratracheal and hilar lymph nodes are seen measuring up to 8 mm. Small to moderate bilateral pleural effusions with bibasilar dependent consoli dative opacities. Mild bilateral intralobular septal thickening is noted with areas of dependent grou ndglass density. There is a lobular circumscribed nodule about the right hilum redemonstrated contain ing coarse eccentric calcifications within the right middle lobe, image 133 series 4. It appears unch anged in size and appearance dating back to study from 07/22/2017. There is suggestion of internal ma croscopic fat along the inferior margin of this lesion. There is no pneumothorax. Thickening of the b ronchovascular bundles noted. The central airways appear to be patent. There is no acute process about the imaged upper abdomen. Mild thickening about the bilateral adrenal glands. Mild to moderate thickening about the mid and distal portions of the esophagus with small to moderate sliding-type hiatal hernia. The soft tissues and breast parenchyma appear unremarkable. The bones appear to be intact. Multilevel facet arthrosis with spondylitic spurring and intervertebral d isc space narrowing. Severe osteoarthritis of the right glenohumeral joint. IMPRESSION: 1. Cardiomegaly with pulmonary edema. 2. No acute aortic pathology or evidence of pulmonary thromboembolic disease. 3. Small to moderate bilateral pleural effusions with bibasilar dependent consolidative and groundgla ss densities favoring compressive atelectasis. A superimposed pneumonitis is difficult to exclude, ho wever considered less likely. 4. Lobular circumscribed nodule containing calcifications redemonstrated about the perihilar right mi ddle lobe, 2.2 x 1.8 cm which appears stable dating back to 07/22/2017. Additionally, there is sugges tion of internal macroscopic fat suggestive of a hamartoma. 5. Mildly prominent mediastinal adenopathy, likely reactive. The above report was generated using voice recognition software. It may contain grammatical, syntax o r spelling errors. Electronically signed by: Ramos Harrell M.D. 10/10/2018 1:21 PM
[2018-10-10 14:16] LABS: Appearance Urine Clear (Clear); Bilirubin Urine Negative (Negative); Blood Urine Negative (Negative); Color Urine Yellow; Glucose Urine UA Negative (Negative); Ketones Urine Negative (Negative); Leukocyte Esterase Urine Negative (Negative); Nitrite Urine Negative (Negative); Protein Urine Negative (Negative); Specific Gravity Urine 1.018 (1.000-1.030); Urobilinogen Urine Negative (Negative); pH Urine 5.5 (4.5-7.5)
--- NOTE | 2018-10-10 14:17 | History & Physical Report ---
Date of Service October 10, 2018 Assessment & Plan (1) Acute on chronic diastolic (congestive) heart failure: Her history of sudden onset shortness of breath is very similar to prior presentations of her diastolic CHF exacerbation. Previous echo in 08/2017 showed EF 60% with mild LVH. CTA chest on 10/10 showed pulmonary edema with small/moderate bilateral [place] [address]. - Lasix 40mg IV BID - Low salt diet, fluid restriction - Monitor I&Os, weights - Telemetry - Trend troponins - Echo - Wean O2 as able (2) Facial rash: Has rash on face from an old cream she used that she had found in her medicine cabinet. ED provider gave her Solu-Medrol 125mg IV for it. I offered topical steroid vs. Benadryl, and the patient declined saying it was already getting better. No airway edema or concern that this is playing a role in her shortness of breath. - Monitor (3) CKD (chronic kidney disease) stage 3, GFR 30-59 ml/min: Baseline Cr ~1.2 with a GFR ~40. Now with Cr of 1.6 and eGFR of 20, meaning she has an COLTEN. If it does not improve with diuresis (meaning it is a cardiorenal syndrome), will need nephrology consult. - Monitor after initial diuresis - Consider nephrology consult (4) HTN (hypertension): BP running somewhat high, presently at 170/50. - Continue home meds - Hydralazine PRN (5) Diabetes: Last A1c was 6.7% from 12/2017. - Lowered home Lantus to 18 units QAM given lower-calorie, hospital diet - Sliding scale - Glycemic pharamcist consult - A1c in the morning (6) Hypothyroid: No signs of hypo-/hyperthryoidism. Last TSH was 1.6 in 12/2017. 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 No major issues, but notes from cardiology indicate it didn't improve how she felt much, so possibly more of it was pleural effusion -related. - Continua ASA (9) Sjogrens syndrome: Has history of lupus and Sjogren's syndrome. Reports that any medications were not helpful because they had more side effect than benefit. - Continue extensive eye-dryness regimen (10) DVT prophylaxis: SCDs - Low risk per calculator History of Present Illness Primary Care Provider: Lottie Winn MD 87yo F w/ hx of diastolic heart failure who presents with an episode of such. Per patient, she was in her normal state of health until 2am this morning. Last night, her daughter reports that she had potato salad with salt and ham for dinner. She awoke at 2am with shortness of breath. She denies any cough, no sputum production, denies any fevers or chills, denies any chest pain, abdominal pain, nausea, vomiting, or other concerns. Previously, she has required thoracenteses to help drain fluid from both sides of the lungs. The daughter reports 5 total. The last was in 10/2017 when she was hospitalized for a similar event. Allergies Allergy/AdvReac Type Severity Reaction Status Date / Time metformin AdvReac Unknown . Verified 10/03/17 11:41 oxycodone AdvReac Unknown HALLUCINATI Verified 10/03/17 11:41 ONS Home Medications Home Medications Medication Instructions Recorded Confirmed Type C,E,zinc,copper [id number] 1 cap PO QAM 10/10/18 10/10/18 History [Ocuvite Adult 50 Plus] amlodipine 5 mg PO PM 10/10/18 10/10/18 History aspirin 81 mg PO DAILY 10/10/18 10/10/18 History atorvastatin 20 mg PO PM 10/10/18 10/10/18 History benazepril 20 mg PO DAILY 10/10/18 10/10/18 History bromfenac [Prolensa] 1 drp OPB DAILY 10/10/18 10/10/18 History bumetanide 1 mg PO DAILY 10/10/18 10/10/18 History calcium carbonate [Calcium 600] 600 mg PO BID 10/10/18 10/10/18 History cholecalciferol (vitamin D3) 2,000 unit PO DAILY 10/10/18 10/10/18 History [Vitamin D3] cyanocobalamin (vitamin B-12) 1,000 mcg PO DAILY 10/10/18 10/10/18 History [Vitamin B-12] diphenoxylate-atropine [Lomotil] 2 tab PO BID PRN 10/10/18 10/10/18 History insulin glargine [Lantus Solostar 22 units SUBCUT QAM 10/10/18 10/10/18 History U-100 Insulin] levothyroxine 75 mcg PO PM 10/10/18 10/10/18 History meloxicam 7.5 mg PO DAILY 10/10/18 10/10/18 History metoprolol tartrate 12.5 mg PO BID 10/10/18 10/10/18 History peg 400-propylene glycol (PF) 1 drp OPB DAILY PRN 10/10/18 10/10/18 History [Systane (PF)] ropinirole 1 mg PO PM 10/10/18 10/10/18 History white petrolatum-mineral oil 1 applic OPB DAILY 10/10/18 10/10/18 History [Refresh P.M.] white petrolatum-mineral oil 1 applic OPB DAILY PRN 10/10/18 10/10/18 History [Systane Nighttime] Past Med/Surg History Medical History Diabetes (Chronic) HTN (hypertension) (Chronic) Diastolic heart failure Neuropathy Vitiligo Surgical History S/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 Family History Father Heart attack Social History Current Living Situation: Alone Other Information That Helps Us Care for You: No Feels Safe at Home: Yes Safety Concerns: Feels Safe At This Time Smoking Status: Unknown if ever smoked Hx Alcohol Use: No Hx Substance Use: No Beliefs That Will Affect Care: None Preferred Language: Ghanaian Communication Ability: Effective Aerial Photographer Required: No Review of Systems Constitutional: no fever, no chills and no sweats Eyes: no diplopia Ear, Nose, Mouth, Throat: no ear trauma, no nasal discharge and no dental pain Respiratory: + dyspnea; no cough and no chest congestion Cardiovascular: no chest pain, no dyspnea on exertion, no palpitations and no syncope Gastrointestinal: no abdominal pain, no belching, no constipation, no diarrhea/ loose stools, no blood in stools and no melena Musculoskeletal: no back pain, no joint pain and no muscle weakness Integumentary: no rash, no skin ulcer and no erythema Neurologic: no generalized weakness, no loss of sensation, no numbness and no paresthesia Psychiatric: no depression and no anxiety Endocrine: no fatigue, no polydipsia and no polyphagia Physical Exam 2 Vital Signs (Past 24 Hours): Last Vital Signs Temp 37.1 C 10/10/18 09:55 Pulse 77 10/10/18 12:00 Resp 20 10/10/18 12:00 BP 135/59 L 10/10/18 12:00 Pulse Ox 96 10/10/18 12:00 Constitutional: WD/WN, vitals as above Eyes: EOM intact bilaterally; no conjunctival abnormality ENMT: external ear and nose normal, oropharynx normal Neck: trachea midline, no thyromegaly normal visual inspection Respiratory: no respiratory distress, no cough and not tachypneic Auscultation: + crackles (At bases, faint) Cardiovascular: RRR, no murmur, no edema Gastrointestinal (Abdomen): Inspection/Auscultation: abdomen normal to inspection; abdomen not distended Musculoskeletal: no cyanosis or clubbing, extremities motor strength 5/5 Skin: no rashes, warm and dry Neurologic: moves all extremities and awake Psychiatric: Orientation: alert, oriented to person and cooperative
--- NOTE | 2018-10-10 15:53 | Emergency Department Note ---
Entered by Sun Campos acting as a scribe for Nestor Burton MD ED Provider Note CHIEF COMPLAINT: Shortness of Breath HISTORY OF PRESENT ILLNESS: The patient is an 87 year old female who presents to the Emergency Room with complaints of shortness of breath beginning this morning at 0200. The patient states that she had labored breathing before. She reports that she felt fine yesterday. She reports a history of fluid on her lungs 1 year ago. The patient states that her symptoms today feel similar to the episode 1 year ago and states that her symptoms were sudden at that time too. The patient states that she does not wear Oxygen at home. The patient denies a history of COPD, asthma, and smoking. Pt denies LOC, headache, fevers, chills, diaphoresis, visual changes, neck pain , chest pain, nausea, vomiting, abdominal pain, back pain, melena, hematochezia , urinary symptoms, numbness, weakness, lymphadenopathy, rash, or other complaints. The patient was satting at 90 on O2 in the room, but per EMS, the patient was satting in the high 80s. REVIEW OF SYSTEMS: See HPI for pertinent positives and negatives. A total of ten systems were reviewed and were otherwise negative. PMHx/PSHx: Diabetes, HTN, Fluid on lungs SOCIAL HISTORY: Patient lives at home. PHYSICAL EXAM: GENERAL: Awake, alert, well-appearing, in no distress HENT: Normocephalic, atraumatic. Oropharynx unremarkable. Facial erythema. Mild periorbital edema. EYES: Normal conjunctiva. Sclera non-icteric. NECK: Inspection normal. Non-tender. Supple. No nuchal rigidity. FROM. No masses. RESPIRATORY: Clear to auscultation. No wheezes. No rales. Diminished breath sounds in the bases. CARDIAC: Normal rate. Normal rhythm. No murmurs. No rubs. Extremities warm and well perfused. Pulses equal. No JVD. GI: Soft, non-distended. No tenderness to palpation. No rebound or guarding. No masses. RECTAL: Deferred. MUSCULOSKELETAL: Atraumatic. Chest examination reveals no tenderness. The back is symmetrical on inspection without obvious abnormality. There is no CVA tenderness to palpation. No joint edema. LOWER EXTREMITIES: Calves are equal size bilaterally and non-tender. No edema. No discoloration. NEURO: Normal sensorium. No sensory or motor deficits noted. SKIN: No rash or jaundice noted. EMERGENCY DEPARTMENT COURSE: 1034: Past medical records reviewed. The patient was evaluated in room B3B, and a complete history and physical examination were performed. 1236: I discussed the patient's case with Dr. Maximus Stinson who will evaluate the patient for further management. 1240: I updated the patient who verbalized agreement and understanding of the treatment plan. MEDICAL DECISION MAKING: Triage Nursing notes reviewed and agree them. Additional history obtained from the family. The patient's history was concerning for shortness of breath. Differential diagnosis: Etiologies such as pneumonia, COPD, reactive airway disease, CHF, cardiac ischemia, pulmonary embolism, pneumothorax, musculoskeletal, infections, gastrointestinal, as well as others were entertained. Physical examination: As above. The patient had some mild facial swelling and redness but she had no obvious airway compromise. ER treatment provided: Supplemental oxygen DuoNeb IV Solu-Medrol On reassessment the patient felt better. Diagnostic interpretation by me: The electrocardiogram was negative for pathologic change. The labs revealed the patient had an elevated troponin. Her CBC did show a leukocytosis of 15,000. The patient's chemistry panel showed a mild elevation of her creatinine from 1.2-1.57. Record review indicates the patient has had an elevated troponin in the past. She has a negative influenza test. Imaging studies: Chest x-ray was negative for significant pathology. Some chronic changes noted. CT PE study performed and was negative for pulmonary emboli. Pleural effusions were noted. The patient had an abrupt onset of hypoxia. She did have some facial swelling that she stated was from a cream that she applied. She did not appear to have any direct airway involvement. This appears to be more of an isolated allergic reaction. She was treated with a DuoNeb and Solu-Medrol and stated she felt somewhat better with this however oxygen made her feel better than the medications. Given the issues further management in the hospital will be necessary. Consultation: A consultation was placed with the hospitalist. The case was discussed and diagnostics were reviewed. The patient was evaluated in the ER for further treatment. IMPRESSION: Dyspnea, Shortness of Breath Allergic reaction PLAN: Admitted The scribe's documentation has been prepared under my direction and personally reviewed by me in its entirety. I confirm that the note above accurately reflects all work, treatment, procedures, and medical decision making performed by me. Impression & Plan Dyspnea, SOB (shortness of breath) Past Med/Surg History Medical History Diabetes (Chronic) HTN (hypertension) (Chronic) Social History Feels Safe at Home: Yes Results & Data Vital Signs Vital Signs - 24 hr 10/10/18 09:55 10/10/18 10:32 10/10/18 10:33 Temperature 37.1 C Temperature Source Oral Sepsis Recent Fever Within 48 Hours No Sepsis Action Taken by Nursing No Action Required Pulse Rate 96 H Pulse Rate [Apical] Pulse Rhythm Regular Pulse Rhythm [Apical] Regular Pulse Strength Normal Pulse Strength [Apical] Normal Respiratory Rate 26 H Respiratory Effort / Characteristics Labored Labored Respiratory Depth Retractive Retractive Respiratory Pattern Tachypnea Tachypnea Blood Pressure 171/66 H Blood Pressure [Right Arm] Blood Pressure Mean 101 Blood Pressure Mean [Right Arm] Blood Pressure Position Sitting Blood Pressure Position [Right Arm] Sitting Pulse Oximetry 15 L 93 Oxygen Delivery Method Oxymask Oxymask Oxymask Oxygen Flow Rate 15 15 15 10/10/18 12:00 10/10/18 14:00 10/10/18 14:56 Temperature Temperature Source Sepsis Recent Fever Within 48 Hours Sepsis Action Taken by Nursing Pulse Rate Pulse Rate [Apical] 77 88 91 H Pulse Rhythm Pulse Rhythm [Apical] Regular Regular Pulse Strength Pulse Strength [Apical] Normal Normal Respiratory Rate 20 18 20 Respiratory Effort / Characteristics Non-Labored Non-Labored Respiratory Depth Normal Normal Respiratory Pattern Blood Pressure Blood Pressure [Right Arm] 135/59 L 132/69 141/59 H Blood Pressure Mean Blood Pressure Mean [Right Arm] 84 90 86 Blood Pressure Position Blood Pressure Position [Right Arm] Sitting Lying Lying Pulse Oximetry 96 94 95 Oxygen Delivery Method Oxymask Oxymask Room Air Oxygen Flow Rate 5 5 5 Home Medications Current Medication List: was personally reviewed by me Laboratory Data Attestation: I reviewed the patient's lab results. Result diagrams: 10/10/18 10:25 10/10/18 10:25 Lab Results 10/10/18 10/10/18 10/10/18 Range/Units 10:25 10:25 10:25 WBC 15.58 H (4.8-10.8) K/uL RBC 3.89 L (4.2-5.4) M/uL Hgb 12.7 (12.0-16.0) g/dL Hct 38.0 (37-47) % MCV 97.7 (80-100) fL MCH 32.6 (25-34) pg MCHC 33.4 (32-36) g/dL RDW Std Deviation 53.3 H (36.4-46.3) fL RDW Coeff of Tru 15.1 H (11.5-14.5) % Plt Count 252 (130-400) K/uL MPV 11.1 H (7.4-10.4) fL Immature Gran % (Auto) 0.3 % Neut % (Auto) 77.9 % Lymph % (Auto) 9.3 % Porter % (Auto) 12.3 % Eos % (Auto) 0.1 % Baso % (Auto) 0.1 % Immature Gran # (Auto) 0.05 H (0.00-0.02) K/uL Neut # (Auto) 12.14 H (1.4-6.5) K/uL Lymph # (Auto) 1.45 (1.2-3.4) K/uL Porter # (Auto) 1.91 H (0.11-0.59) K/uL Eos # (Auto) 0.01 (0-0.5) K/uL Baso # (Auto) 0.02 (0-0.2) K/uL PT 10.8 (9.0-12.0) Seconds INR 1.1 (0.9-1.1) APTT 25.9 (21.0-31.0) Seconds PTT Ratio 1.0 Sodium 138 (136-145) mmol/L Potassium 4.2 (3.5-5.1) mmol/L Chloride 105 (98-107) mmol/L Carbon Dioxide 24 (21-32) mmol/L Anion Gap 10.0 (3-11) BUN 28 H (7-18) mg/dl Creatinine 1.57 H (0.6-1.2) mg/dl Est Cr Clr Drug Dosing 22.2 ml/min Est GFR ( Amer) 34.2 Est GFR (Non-Af Amer) 29.5 BUN/Creatinine Ratio 17.5 (10-20) Glucose 191 H (70-99) mg/dl Calcium 7.9 L (8.5-10.1) mg/dl Magnesium 1.9 (1.8-2.4) mg/dl Total Bilirubin 1.0 (0.2-1) mg/dl AST 20 (15-37) U/L ALT 25 (12-78) U/L Alkaline Phosphatase 77 (45-117) U/L Troponin I 0.208 H* (0-0.045) ng/ml Total Protein 7.1 (6.4-8.2) gm/dl Albumin 3.1 L (3.4-5.0) gm/dl Globulin 4.0 (2.5-4.0) gm/dl Albumin/Globulin Ratio 0.8 L (0.9-2) Urine Color Urine Appearance (Clear) Urine pH (4.5-7.5) Ur Specific Lennon (1.000-1.030) Urine Protein (Negative) Urine Glucose (UA) (Negative) Urine Ketones (Negative) Urine Blood (Negative) Urine Nitrite (Negative) Urine Bilirubin (Negative) Urine Urobilinogen (Negative) Ur Leukocyte Esterase (Negative) Influenza Type A Ag (Neg) Influenza Type B Ag (Neg) 10/10/18 10/10/18 Range/Units 10:40 13:30 WBC (4.8-10.8) K/uL RBC (4.2-5.4) M/uL Hgb (12.0-16.0) g/dL Hct (37-47) % MCV (80-100) fL MCH (25-34) pg MCHC (32-36) g/dL RDW Std Deviation (36.4-46.3) fL RDW Coeff of Tru (11.5-14.5) % Plt Count (130-400) K/uL MPV (7.4-10.4) fL Immature Gran % (Auto) % Neut % (Auto) % Lymph % (Auto) % Porter % (Auto) % Eos % (Auto) % Baso % (Auto) % Immature Gran # (Auto) (0.00-0.02) K/uL Neut # (Auto) (1.4-6.5) K/uL Lymph # (Auto) (1.2-3.4) K/uL Porter # (Auto) (0.11-0.59) K/uL Eos # (Auto) (0-0.5) K/uL Baso # (Auto) (0-0.2) K/uL PT (9.0-12.0) Seconds INR (0.9-1.1) APTT (21.0-31.0) Seconds PTT Ratio Sodium (136-145) mmol/L Potassium (3.5-5.1) mmol/L Chloride (98-107) mmol/L Carbon Dioxide (21-32) mmol/L Anion Gap (3-11) BUN (7-18) mg/dl Creatinine (0.6-1.2) mg/dl Est Cr Clr Drug Dosing ml/min Est GFR ( Amer) Est GFR (Non-Af Amer) BUN/Creatinine Ratio (10-20) Glucose (70-99) mg/dl Calcium (8.5-10.1) mg/dl Magnesium (1.8-2.4) mg/dl Total Bilirubin (0.2-1) mg/dl AST (15-37) U/L ALT (12-78) U/L Alkaline Phosphatase (45-117) U/L Troponin I (0-0.045) ng/ml Total Protein (6.4-8.2) gm/dl Albumin (3.4-5.0) gm/dl Globulin (2.5-4.0) gm/dl Albumin/Globulin Ratio (0.9-2) Urine Color Yellow Urine Appearance Clear (Clear) Urine pH 5.5 (4.5-7.5) Ur Specific Lennon 1.018 (1.000-1.030) Urine Protein Negative (Negative) Urine Glucose (UA) Negative (Negative) Urine Ketones Negative (Negative) Urine Blood Negative (Negative) Urine Nitrite Negative (Negative) Urine Bilirubin Negative (Negative) Urine Urobilinogen Negative (Negative) Ur Leukocyte Esterase Negative (Negative) Influenza Type A Ag Neg for Influ A (Neg) Influenza Type B Ag Neg for Influ B (Neg) Administered Medications Ioversol (Optiray 320 125ml) 92 ml IV ONCE PRN PRN Reason: Interaction Checking Stop: 10/14/18 13:08 Last Admin: 10/10/18 13:10 Dose: 92 ml Discontinued Medications Albuterol (Duoneb) 3 ml NEB NOW STA Stop: 10/10/18 10:41 Last Admin: 10/10/18 10:48 Dose: 3 ml Methylprednisolone (Solumedrol) 125 mg IV NOW STA Stop: 10/10/18 10:41 Last Admin: 10/10/18 10:48 Dose: 125 mg Imaging Data Radiologist's Impression: Radiology results as stated below per my review and the radiologist's interpretation: XR chest 1V portable CLINICAL HISTORY: Dyspnea dyspnea COMPARISON STUDY: 10/02/2017 FINDINGS: Mild cardiomegaly. Prominent pulmonary vasculature. Diaphragms are smooth. IMPRESSION: Mild pulmonary vascular congestion. The above report was generated using voice recognition software. It may contain grammatical, syntax or spelling errors. Electronically signed by: Moose Diego M.D. 10/10/2018 10:[address] angio chest PE protocol CT DOSE: 322.28 mGy.cm HISTORY: 87 years-old Female with acute dyspnea, hypoxia. Acute shortness of breath TECHNIQUE: Multiple CTA images of the chest were obtained after the intravenous administration of 92 ml Optiray 320. Coronal and sagittal MIPS were obtained from the axial data set and were submitted for review. All measurements were obtained according to NASCET criteria. A dose lowering technique was utilized adhering to the principles of ALARA. COMPARISON: Chest CT 11/07/2017, 08/19/2017, 07/22/2017. FINDINGS: CTA: Moderate multichamber cardiac enlargement with mitral annular calcifications. Aortic valvular prosthesis. Extensive mixed plaque formation about the thoracic aorta without aneurysm or dissection. There is patency about the imaged great vessels. The pulmonary arterial tree is opacified to level of the subsegmental branches and demonstrates no focal filling defects to suggest pulmonary thromboembolic disease. CT CHEST: Heterogeneous appearance of the thyroid. Mildly prominent paratracheal and hilar lymph nodes are seen measuring up to 8 mm. Small to moderate bilateral pleural effusions with bibasilar dependent consolidative opacities. Mild bilateral intralobular septal thickening is noted with areas of dependent groundglass density. There is a lobular circumscribed nodule about the right hilum redemonstrated containing coarse eccentric calcifications within the right middle lobe, image 133 series 4. It appears unchanged in size and appearance dating back to study from 07/22/2017. There is suggestion of internal macroscopic fat along the inferior margin of this lesion. There is no pneumothorax. Thickening of the bronchovascular bundles noted. The central airways appear to be patent. There is no acute process about the imaged upper abdomen. Mild thickening about the bilateral adrenal glands. Mild to moderate thickening about the mid and distal portions of the esophagus with small to moderate sliding-type hiatal hernia. The soft tissues and breast parenchyma appear unremarkable. The bones appear to be intact. Multilevel facet arthrosis with spondylitic spurring and intervertebral disc space narrowing. Severe osteoarthritis of the right glenohumeral joint. IMPRESSION: 1. Cardiomegaly with pulmonary edema. 2. No acute aortic pathology or evidence of pulmonary thromboembolic disease. 3. Small to moderate bilateral pleural effusions with bibasilar dependent consolidative and groundglass densities favoring compressive atelectasis. A superimposed pneumonitis is difficult to exclude, however considered less likely. 4. Lobular circumscribed nodule containing calcifications redemonstrated about the perihilar right middle lobe, 2.2 x 1.8 cm which appears stable dating back to 07/22/2017. Additionally, there is suggestion of internal macroscopic fat suggestive of a hamartoma. 5. Mildly prominent mediastinal adenopathy, likely reactive. The above report was generated using voice recognition software. It may contain grammatical, syntax or spelling errors. Electronically signed by: Ramos Harrell M.D. 10/10/2018 1:21 PM ECG Data Attestation: I personally reviewed and interpreted this ECG as follows: Indication: SOB/dyspnea Rate (beats per minute): 94 Rhythm: normal sinus Findings: + LBBB; no PAC, no PVC and no ectopy Comparison ECG Date: from (10/02/17) Change: no significant change (LBBB is old) Blood Pressure Blood Pressure Findings: Low blood pressure Blood Pressure Disposition: further management by hospitalist Discharge Plan Visit Data Chief Complaint: Shortness of Breath/Dyspnea ED Provider: Nestor Burton Discharge Problem: Dyspnea, SOB (shortness of breath) Discharge Instructions Interventions: ED Discharge Assessment Last Done: 10/10/18 15:01 The scribe's documentation has been prepared under my direction and personally reviewed by me in its entirety. I confirm that the note above accurately reflects all work, treatment, procedures, and medical decision making performed by me.
[2018-10-10] MEDS ORDERED: GLUCOSE 40% GEL 15 GM TUBE PO PRN (16:45)
[2018-10-10] MEDS ORDERED: DEXTROSE 50% 50 ML SYRINGE IV PRN (16:45)
[2018-10-10] MEDS ORDERED: GLUCAGON FOR INJ 1 MG VIAL SQ PRN (16:45)
[2018-10-10] MEDS ORDERED: CARBOHYDRATES FOR HYPOGLYCEMIA PO PRN (16:45)
[2018-10-10] MEDS ORDERED: GLUCOSE 10 TABS/TUBE PO PRN (16:45)
[2018-10-10] MEDS ORDERED: WHITE PETROLATUM MINERAL OIL OPB PRN (16:45)
[2018-10-10] MEDS ORDERED: PHARMACY GLYCEMIC MGMT CONSULT SCH (17:20)
[2018-10-10] MEDS ORDERED: INSULIN GLARGINE SOLOSTAR 100 UNITS/ML 3 ML PEN SQ ONE (17:30)
--- NOTE | 2018-10-10 17:31 | Pharmacy Report ---
Glycemic Control Consultation - Date of Service October 10, 2018 - Scope Scope: Glycemic Pharmacist consulted by Dr Treviño on 10/10/18 for glycemic control and to write orders per [facility] inpatient glycemic control protocol - Objective Weight: 61.3 kg Accuchecks BSG (last 24hrs): 10/10/18 10/10/18 10/10/18 10:25 16:54 16:55 Glucose 191 H POC Glucose 440 H* 420 H* Laboratory Data (last 24hrs): 10/10/18 10:25 Potassium 4.2 Carbon Dioxide 24 Anion Gap 10.0 Creatinine 1.57 H Est Cr Clr Drug Dosing 22.2 - Recent Pertinent Medications Outpatient Anti-diabetic Regimen: * Lantus 22 units SQ QAM * A1c = 6.7 % 01/02/18, new A1c ordered Risk Factors for Insulin Resistance: * Steroids: Solu-medrol 125mg IV x 1 dose today at 1048 in the ED * Infection: procal pending * Diet: Type 2 DM - Assessment & Plan Assessment & Plan: ASSESSMENT: * 87 year old female, type 2 diabetic, admitted with SOB, patient received IV Solu-medrol in ED, resulting in hyperglycemia now. * Give one time dose of Lantus to cover Solu-medrol, wt based stress of 3, and start with tight CF and CR until effects of solu-medrol wear off over the next 24 hours. PLAN FOR INPATIENT GLYCEMIC CONTROL: * Basal insulin * Lantus 30 units SQ x1 dose now, then resume 18 units daily as ordered * Bolus insulin * NovoLog per scale ACHS or Q6hrs while NPO and overnight at 0000 and 0400 * Goal Range: Low 110 mg/dL - High 140 mg/dL * Correction Factor: 20 mg/dL/unit * Nutritional / Prandial insulin per carb ratio of 1 unit per 8 grams CHO consumed * Please note that the plan above was derived based on current level of insulin resistance and hospital stress. These recommendations are appropriate for inpatient admission only. Plan of care upon discharge will need to be reassessed to avoid potential outpatient hypo/hyperglycemia. Thank you.
[2018-10-10] MEDS ORDERED: ARTIFICIAL TEARS OPB PRN ×2 (17:40→17:45)
[2018-10-10] MEDS: INSULIN ASPART 100 UNITS/ML 3 ML PEN SC SCH ×2 (18:12→20:49)
[2018-10-10] MEDS ORDERED: INSULIN HUMAN REGULAR PER UNIT 5 UNITS in SYRINGE 4.95 ML IV SCH (20:45)
[2018-10-10] MEDS: AMLODIPINE BESYLATE 5 MG TAB PO SCH (20:47)
[2018-10-10] MEDS: ATORVASTATIN 20 MG TAB PO SCH (20:47)
[2018-10-10] MEDS: METOPROLOL TARTRATE 25 MG TAB PO SCH (20:47)
[2018-10-10] MEDS: ROPINIROLE HCL 1 MG TABLET PO SCH (20:47)
[2018-10-10] MEDS: LEVOTHYROXINE SODIUM 75 MCG TABLET PO SCH (20:47)
[2018-10-10] MEDS ORDERED: HydrALAZINE HCL 20 MG/ML VIAL IV PRN (21:39)
[2018-10-11] MEDS: INSULIN ASPART 100 UNITS/ML 3 ML PEN SC SCH ×6 (04:45→21:14)
[2018-10-11 08:00] LABS: Hematocrit (blood only) 34.7 % (37-47); Hemoglobin 11.8 g/dL (12.0-16.0); Mean Corpuscular Volume 96.7 fL (80-100); Mean Platelet Volume 11.2 fL (7.4-10.4); Platelet Count 236 K/uL (130-400); RDW Coefficient of Variation 14.8 % (11.5-14.5); RDW Standard Deviation 51.9 fL (36.4-46.3); Red Blood Count 3.59 M/uL (4.2-5.4); White Blood Count 21.18 K/uL (4.8-10.8)
[2018-10-11 08:24] LABS: Estimated Average Glucose 146 mg/dl; Hemoglobin A1C 6.7 % (4.5-5.6)
[2018-10-11 08:27] LABS: BUN Creatinine Ratio 27.5 (10-20); Calcium 8.4 mg/dl (8.5-10.1); Creatinine Clr Calc Pharmacy 18.8 ml/min; Est GFR (African American) 31.1; Est GFR (Non-African American) 26.8; Magnesium 2.2 mg/dl (1.8-2.4); Potassium 3.9 mmol/L (3.5-5.1)
[2018-10-11 08:40] LABS: Troponin I 3.22 ng/ml (0-0.045)
[2018-10-11] MEDS: METOPROLOL TARTRATE 25 MG TAB PO SCH ×2 (08:48→21:12)
[2018-10-11] MEDS ORDERED: ENALAPRIL MALEATE 10 MG TAB PO SCH (09:00)
[2018-10-11] MEDS ORDERED: INSULIN GLARGINE SOLOSTAR 100 UNITS/ML 3 ML PEN SQ SCH (09:00)
[2018-10-11] MEDS ORDERED: HEPARIN 25000 UNIT/500 ML D5W IV ONE (10:45)
[2018-10-11] MEDS: Heparin IV Standard *NO* Bolus IV SCH ×6 (10:49→23:53)
--- NOTE | 2018-10-11 10:55 | Pharmacy Report ---
Pharmacy Glycemic Short Note 2 - Date of Service October 11, 2018 - Glycemic Short BSG Results (Last 24 hours): 10/10/18 10/10/18 10/10/18 10:25 16:54 16:55 Glucose 191 H POC Glucose 440 H* 420 H* 10/10/18 10/11/18 10/11/18 20:19 04:07 07:25 Glucose 106 H POC Glucose 351 H* 102 H 10/11/18 07:38 Glucose POC Glucose 122 H OUTPATIENT ANTIDIABETIC REGIMEN: * Lantus 22 units SQ QAM * A1c = 6.7 % 01/02/18, new A1c ordered ASSESSMENT: * Ann-Marie is a 87 year old T2DM female admitted with SOB. She received 63 units of SQ insulin yesterday. * She received a one time dose of solu-medrol IV in the ER yesterday, therefore a dose of Lantus 30 units x1 was ordered and tight Novolog parameters were selected. Since the patient is not being continued on steroids and BSGs have greatly improved, I will loosen Novolog correction factor and carb ratio to limit the risk of hypoglycemia. * Fasting BSG is at goal. Will trial Lantus 18 units daily (20% reduction in home dose). PLAN FOR INPATIENT GLYCEMIC CONTROL: * Basal insulin * Lantus 18 units SQ qAM * Bolus insulin * NovoLog per scale ACHS or Q6hrs while NPO * Goal Range: Low 110 mg/dL - High 140 mg/dL * Correction Factor: 25 mg/dL/unit * Nutritional / Prandial insulin per carb ratio of 1 unit per 9 grams CHO consumed PLAN FOR DISCHARGE: * A1c of 6.7% is at goal * Continue home regimen of Lantus 22 units qAM on discharge
[2018-10-11] MEDS ORDERED: HEPARIN STANDARD DEXTROSE 25,000 UNITS/500 ML IV SCH ×2 (11:12→21:15)
[2018-10-11] MEDS: BUMETANIDE 1 MG TAB PO SCH (11:47)
--- NOTE | 2018-10-11 12:04 | Cardiology Consultation ---
Date of Consultation October 11, 2018 Assessment & Plan (1) SOB (shortness of breath): I suspect her shortness of breath is due to an exacerbation of diastolic congestive heart failure, possibly from salt and fluid intake, however other possibilities need to be investigated including worsening of her aortic valve, as well as left ventricular dysfunction. She seems to have improved substantially since admission which would go along with this being an exacerbation of heart failure. (2) Acute on chronic diastolic (congestive) heart failure: She has a history of congestive heart failure and I believe has acute heart failure on top of her chronic diastolic heart failure. She has not had an echocardiogram for over a year and I would like to make sure that she is not developed left ventricular dysfunction, that is pending. She appears to be very sensitive to fluid and probably does not need to lose a lot of fluid. She does not have edema. (3) Elevated troponin I level: She does have an elevated troponin, the level is 3.2 which is quite high. That is the second set, I would repeat another set for sure but I am not sure I would further investigate this. Her catheterization was less than 3 years ago and she had minor disease and although this could have progressed I doubt that is the cause and she did have troponin elevations in this range in July 2017 felt to be due to demand ischemia. Unless the pattern shows otherwise (we cannot read the electrocardiogram due to the left bundle pattern) I would assume that this is demand ischemia this admission as well. (4) LBBB (left bundle branch block): She has a long-standing left bundle branch block, as long as her left ventricular function does not deteriorate this probably does not relate to her presentation. If she does develop ventricular dysfunction we may have to consider biventricular pacing, but that would be based on her echo ejection fraction. History of Present Illness Reason for Consultation: Shortness of breath, elevated troponin Attending Physician: Kiran Mark DO History of Present Illness This is an 87-year-old woman who has a history of aortic stenosis for which she had a TAVR on November 10, 2015, she had mild coronary artery disease at the time. She has long-standing left bundle branch block. She has hyperlipidemia and chronic diastolic congestive heart failure. She is followed in our office. She was admitted with facial swelling but admits to dyspnea on exertion and she had an elevation in her troponin, up to 3.2 today. At the time of my evaluation she denies chest discomfort, she feels that her shortness of breath has improved during her hospitalization. She also feels that her facial swelling has improved. Allergies Allergy/AdvReac Type Severity Reaction Status Date / Time metformin AdvReac Unknown . Verified 10/03/17 11:41 oxycodone AdvReac Unknown HALLUCINATI Verified 10/03/17 11:41 ONS Home Medications Home Medications Medication Instructions Recorded Confirmed Type C,E,zinc,copper [id number] 1 cap PO QAM 10/10/18 10/10/18 History [Ocuvite Adult 50 Plus] amlodipine 5 mg PO PM 10/10/18 10/10/18 History aspirin 81 mg PO DAILY 10/10/18 10/10/18 History atorvastatin 20 mg PO PM 10/10/18 10/10/18 History benazepril 20 mg PO DAILY 10/10/18 10/10/18 History bromfenac [Prolensa] 1 drp OPB DAILY 10/10/18 10/10/18 History bumetanide 1 mg PO DAILY 10/10/18 10/10/18 History calcium carbonate [Calcium 600] 600 mg PO BID 10/10/18 10/10/18 History cholecalciferol (vitamin D3) 2,000 unit PO DAILY 10/10/18 10/10/18 History [Vitamin D3] cyanocobalamin (vitamin B-12) 1,000 mcg PO DAILY 10/10/18 10/10/18 History [Vitamin B-12] diphenoxylate-atropine [Lomotil] 2 tab PO BID PRN 10/10/18 10/10/18 History insulin glargine [Lantus Solostar 22 units SUBCUT QAM 10/10/18 10/10/18 History U-100 Insulin] levothyroxine 75 mcg PO PM 10/10/18 10/10/18 History meloxicam 7.5 mg PO DAILY 10/10/18 10/10/18 History metoprolol tartrate 12.5 mg PO BID 10/10/18 10/10/18 History peg 400-propylene glycol (PF) 1 drp OPB DAILY PRN 10/10/18 10/10/18 History [Systane (PF)] ropinirole 1 mg PO PM 10/10/18 10/10/18 History white petrolatum-mineral oil 1 applic OPB DAILY 10/10/18 10/10/18 History [Refresh P.M.] white petrolatum-mineral oil 1 applic OPB DAILY PRN 10/10/18 10/10/18 History [Systane Nighttime] Patient History Medical History Diabetes (Chronic) HTN (hypertension) (Chronic) Diastolic heart failure Neuropathy Vitiligo Surgical History S/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 Family History Father Heart attack Social History Current Living Situation: Alone Other Information That Helps Us Care for You: No Feels Safe at Home: Yes Safety Concerns: Feels Safe At This Time Smoking Status: Unknown if ever smoked Hx Alcohol Use: No Hx Substance Use: No Beliefs That Will Affect Care: None Communication Ability: Effective Review of Systems Negative for lightheadedness, dizziness, palpitations, presyncope or syncope. Several days of dyspnea on exertion, no exertional chest pain. No orthopnea or PND or peripheral edema. No GI complaints, no bleeding. No neurologic complaints such as TIA or stroke symptoms. Other systems negative. Physical Exam 2 Vital Signs (Past 24 Hours): Last Vital Signs Temp 36.7 C 10/11/18 11:16 Pulse 62 10/11/18 11:16 Resp 18 10/11/18 11:16 BP 105/59 L 10/11/18 11:16 Pulse Ox 95 10/11/18 11:29 Physical Exam: Constitutional: Alert, cooperative and in no distress. HEENT: Unremarkable Neck: No jugular venous distention, carotid pulses are normal and equal bilaterally without bruits. Pulmonary: Clear to auscultation bilaterally. Cardiac: Regular rhythm with good prosthetic valve sounds, a soft aortic outflow murmur and a diastolic aortic murmur, no gallop or rub. Abdomen: Soft, nontender with normal bowel sounds. Extremities: No edema. Distal pulses intact. Neurologic: No focal findings. Gait is steady. Skin: No rash, ecchymoses or petechiae. Results & Data Diagnostic Findings An electrocardiogram done on arrival shows sinus rhythm with a left bundle branch block pattern, a repeat electrocardiogram is similar Telemetry: Sinus rhythm, no significant arrhythmia Echocardiography: The last echocardiogram I see is from August 2017, that shows normal left ventricular systolic function with mild aortic insufficiency and a gradient normal for her valve
--- NOTE | 2018-10-11 12:33 | Hospitalist Progress Note ---
Date of Service October 11, 2018 Assessment & Plan (1) Elevated troponin I level: some concerns that this could represent a mild NSTEMI, but patient did not have any chest pain/pressure has LBBB on EKG so cannot interpret will repeat troponin at 1400 today to see if it is going up further has a history of a clean heart catheterization appreciate cardiology consult continue aspirin for now no plans for heparin drip likely represents demand ischemia of cardiac muscle (2) Acute on chronic diastolic (congestive) heart failure: Her history of sudden onset shortness of breath is very similar to prior presentations of her diastolic CHF exacerbation. Previous echo in 08/2017 showed EF 60% with mild LVH. CTA chest on 10/10 showed pulmonary edema with small/moderate bilateral pleural [place]. [place] [address]. likely caused by excess salt and fluid intake responded well to Lasix 40mg IV BID change back to Bumex 1mg PO daily Cr up slightly to 1.7 examines euvolemic today, lungs clear in the bases, acute component resolved follow weights, I/O follow up on echo (3) Facial rash: Has rash on face from an old cream she used that she had found in her medicine cabinet. ED provider gave her Solu-Medrol 125mg IV for it. patient refused topical Benadryl or further steroids rash improving told her to throw away her cream at home (4) CKD (chronic kidney disease) stage 3, GFR 30-59 ml/min: Baseline Cr ~1.2 with a GFR ~40 Cr up slightly to 1.7 from 1.5 but suspect this is due to Lasix IV continue Bumex 1mg PO daily follow up repeat BMP making adequate urine today (5) HTN (hypertension): BP stable today on home medications (6) Diabetes: Last A1c was 6.7% from 12/2017. - Lowered home Lantus to 18 units QAM given lower-calorie, hospital diet - Sliding scale continue Lantus on discharge monitor for hypoglycemia (7) Hypothyroid: No signs of hypo-/hyperthryoidism. Last TSH was 1.6 in 12/2017. - Continue home Synthroid 75 mcg (8) Vitiligo: (9) S/P TAVR (transcatheter aortic valve replacement): S/p TAVR in 10/2017. No major issues, but notes from cardiology indicate it didn't improve how she felt much, so possibly more of it was pleural effusion -related. - Continua ASA (10) Sjogrens syndrome: Has history of lupus and Sjogren's syndrome. Reports that any medications were not helpful because they had more side effect than benefit. - Continue extensive eye-dryness regimen (11) LBBB (left bundle branch block): chronic (12) DVT prophylaxis: SCDs - Low risk per calculator Subjective patient feels a lot better, wants to go home today her breathing is a lot better, she responded to Lasix 40mg IV BID, made more urine than normal no chest pain or pressure either prior to admission or while here discussed her findings of elevated troponin to 3.2 from 0.2 her daughter said she had a history of high troponins, looked back in 2017 troponin bumped to 2 she has a h/o clean catheterization her Cr went up slightly to 1.7 from 1.5, likely due to Lasix IV appreciate cardiology consult, will repeat troponin, follow up on echocardiogram results patient's daughter updated at the bedside Review of Systems All systems reviewed & are unremarkable except as noted in HPI & below Respiratory: no cough, no dyspnea and no dyspnea on exertion Cardiovascular: no chest pain, no chest pain at rest, no dyspnea, no dyspnea on exertion, no palpitations and no edema Physical Exam 2 Vital Signs (Past 24 Hours): Last Vital Signs Temp 36.7 C 10/11/18 11:16 Pulse 62 10/11/18 11:16 Resp 18 10/11/18 11:16 BP 105/59 L 10/11/18 11:16 Pulse Ox 95 10/11/18 11:29 Constitutional: WD/WN, vitals as above Eyes: PERRL, conjunctivae normal, anicteric sclerae ENMT: external ear and nose normal, oropharynx normal Neck: trachea midline, no thyromegaly Respiratory: normal respiratory effort, lungs clear to auscultation (good airflow in bases of lungs) Auscultation: no rales and no wheezes Cardiovascular: RRR, no murmur, no edema Gastrointestinal (Abdomen): normal bowel sounds, soft, nontender, no hepatosplenomegaly Musculoskeletal: no cyanosis or clubbing, extremities motor strength 5/5 Skin: no rashes, warm and dry Neurologic: patellar DTR's 2+ bilat, sensation intact and PERRL, EOMI, accommodation nl, no face palsy, no dysarthria Psychiatric: A+Ox3, euthymic affect Lymphatic: no cervical or axillary lymphadenopathy Results & Data Laboratory Results Laboratory Results - last 24 hr 10/10/18 10/10/18 10/10/18 13:30 16:54 16:55 WBC RBC Hgb Hct MCV MCH MCHC RDW Std Deviation RDW Coeff of Tru Plt Count MPV Sodium Potassium Chloride Carbon Dioxide Anion Gap BUN Creatinine Est Cr Clr Drug Dosing Est GFR ( Amer) Est GFR (Non-Af Amer) BUN/Creatinine Ratio Glucose POC Glucose 440 H* 420 H* Estimat Average Glucose Hemoglobin A1c Calcium Magnesium Troponin I NT-Pro-B Natriuret Pep Procalcitonin Urine Color Yellow Urine Appearance Clear Urine pH 5.[address] 1.018 Urine Protein Negative Urine Glucose (UA) Negative Urine Ketones Negative Urine Blood Negative Urine Nitrite Negative Urine Bilirubin Negative Urine Urobilinogen Negative Ur Leukocyte Esterase Negative 10/10/18 10/10/18 10/10/18 17:16 17:16 20:19 WBC RBC Hgb Hct MCV MCH MCHC RDW Std Deviation RDW Coeff of Tru Plt Count MPV Sodium Potassium Chloride Carbon Dioxide Anion Gap BUN Creatinine Est Cr Clr Drug Dosing Est GFR ( Amer) Est GFR (Non-Af Amer) BUN/Creatinine Ratio Glucose POC Glucose 351 H* Estimat Average Glucose Hemoglobin A1c Calcium Magnesium Troponin I NT-Pro-B Natriuret Pep 99150 H Procalcitonin 0.76 H Urine Color Urine Appearance Urine pH Ur Specific [address] Urine Protein Urine Glucose (UA) Urine Ketones Urine Blood Urine Nitrite Urine Bilirubin Urine Urobilinogen Ur Leukocyte Esterase 10/11/18 10/11/18 10/11/18 04:07 07:25 07:25 WBC 21.18 H RBC 3.59 L Hgb 11.8 L Hct 34.7 L MCV 96.7 MCH 32.9 MCHC 34.0 RDW Std Deviation 51.9 H RDW Coeff of Tru 14.8 H Plt Count 236 MPV 11.2 H Sodium 137 Potassium 3.9 Chloride 104 Carbon Dioxide 25 Anion Gap 8.0 BUN 47 H D Creatinine 1.70 H Est Cr Clr Drug Dosing 18.8 Est GFR ( Amer) 31.1 Est GFR (Non-Af Amer) 26.8 BUN/Creatinine Ratio 27.5 H Glucose 106 H POC Glucose 102 H Estimat Average Glucose Hemoglobin A1c Calcium 8.4 L Magnesium 2.2 Troponin I 3.220 H* NT-Pro-B Natriuret Pep Procalcitonin Urine Color Urine Appearance Urine pH Ur Specific [address] Urine Protein Urine Glucose (UA) Urine Ketones Urine Blood Urine Nitrite Urine Bilirubin Urine Urobilinogen Ur Leukocyte Esterase 10/11/18 10/11/18 10/11/18 07:25 07:38 11:29 WBC RBC Hgb Hct MCV MCH MCHC RDW Std Deviation RDW Coeff of Tru Plt Count MPV Sodium Potassium Chloride Carbon Dioxide Anion Gap BUN Creatinine Est Cr Clr Drug Dosing Est GFR ( Amer) Est GFR (Non-Af Amer) BUN/Creatinine Ratio Glucose POC Glucose 122 H 165 H Estimat Average Glucose 146 Hemoglobin A1c 6.7 H Calcium Magnesium Troponin I NT-Pro-B Natriuret Pep Procalcitonin Urine Color Urine Appearance Urine pH Ur Specific [address] Urine Protein Urine Glucose (UA) Urine Ketones Urine Blood Urine Nitrite Urine Bilirubin Urine Urobilinogen Ur Leukocyte Esterase Medications Administered Current Inpatient Medications Acetaminophen (Tylenol) 650 mg PO Q4H PRN PRN Reason: pain/fever Stop: 11/09/18 16:44 Amlodipine Besylate (Norvasc) 5 mg PO PM ISIAH Stop: 11/09/18 20:59 Last Admin: 10/10/18 20:47 Dose: 5 mg Artificial Tears (Artificial Tears) 1 drops OPB DAILY PRN PRN Reason: DRY EYES Stop: 11/09/18 17:44 Artificial Tears (Artificial Tears) 1 drops OPB DAILY PRN PRN Reason: DRY EYES Stop: 11/09/18 17:39 Aspirin (Ecotrin Ectab) 81 mg PO DAILY [facility] Stop: 11/10/18 08:59 Atorvastatin Calcium (Lipitor) 20 mg PO PM ISIAH Stop: 11/09/18 20:59 Last Admin: 10/10/18 20:47 Dose: 20 mg Bumetanide (Bumex) 1 mg PO QAM [facility] Stop: 11/10/18 10:29 Last Admin: 10/11/18 11:47 Dose: 1 mg Dextrose (Dextrose 50%) 25 - 50 ml IV UD PRN; Protocol PRN Reason: Hypoglycemia Protocol Stop: 11/09/18 16:44 Enalapril Maleate (Vasotec) 20 mg PO DAILY [facility] Stop: 11/10/18 08:59 Last Admin: 10/11/18 10:56 Dose: 20 mg Glucagon (Glucagen) 1 mg SQ UD PRN; Protocol PRN Reason: Hypoglycemia Protocol Stop: 11/09/18 16:44 Glucose (Glucose 40%) 15 - 30 gm PO UD PRN; Protocol PRN Reason: Hypoglycemia Protocol Stop: 11/09/18 16:44 Glucose (Dex4 Glucose) 4 - 8 tabs PO UD PRN; Protocol PRN Reason: Hypoglycemia Protocol Stop: 11/09/18 16:44 Hydralazine HCl (Hydralazine Hcl) 5 mg IV Q4H PRN PRN Reason: Hypertension Stop: 11/09/18 21:38 Heparin Sodium/Dextrose (Heparin Sodium/Dextrose) 25,000 units in 500 mls @ 19 mls/hr IV .Q24H ISIAH; Protocol Stop: 11/10/18 11:11 Insulin Aspart (Novolog Flexpen) 0 units SC ACHS ISIAH Stop: 11/09/18 17:29 Last Admin: 10/11/18 08:51 Dose: 6 units Insulin Aspart (Novolog Flexpen) 0 units SC 0000,[id number] ISIA[facility] Stop: 11/10/18 00:00 Last Admin: 10/11/18 04:47 Dose: Not Given Insulin Glargine (Lantus Solostar Pen) 18 units SQ QAM [facility] Stop: 11/10/18 08:59 Last Admin: 10/11/18 08:49 Dose: 18 units Levothyroxine Sodium (Synthroid) 75 mcg PO PM ISIAH Stop: 11/09/18 20:59 Last Admin: 10/10/18 20:47 Dose: 75 mcg Metoprolol Tartrate (Lopressor) 12.5 mg PO BID [facility] Stop: 11/09/18 20:59 Last Admin: 10/11/18 08:48 Dose: 12.5 mg Miscellaneous (Order Awaiting Action) 1 ea N/A QS [facility] Stop: 11/10/18 00:00 Last Admin: 10/11/18 08:29 Dose: Not Given Miscellaneous (Order Awaiting Action) 1 ea N/A QS [facility] Stop: 11/10/18 00:00 Last Admin: 10/11/18 08:29 Dose: Not Given Miscellaneous (Carbohydrates For Hypoglycemia) 15 - 30 gm PO UD PRN PRN Reason: Hypoglycemia Treatment Stop: 11/09/18 16:44 Miscellaneous Information (Consult Glycemic Management Pharmacy) 1 ea N/A UD ISIAH; Protocol Stop: 11/09/18 17:19 Multivitamins/Minerals (Multivitamin W/ Minerals Tab) 1 tab PO QAM [facility] Stop: 11/10/18 08:59 Ropinirole HCl (Requip) 1 mg PO PM [facility] Stop: 11/09/18 20:59 Last Admin: 10/10/18 20:47 Dose: 1 mg
[2018-10-11] MEDS: ASPIRIN 81 MG ECTAB PO SCH (12:58)
[2018-10-11] MEDS: CEROVITE ADV FORMULA TAB PO SCH (12:58)
[2018-10-11 15:11] LABS: Calcium 8.2 mg/dl (8.5-10.1); Creatinine Clr Calc Pharmacy 15.6 ml/min; Est GFR (African American) 24.8; Est GFR (Non-African American) 21.4; Potassium 4.2 mmol/L (3.5-5.1)
[2018-10-11 15:17] LABS: Troponin I 3.48 ng/ml (0-0.045)
[2018-10-11] MEDS ORDERED: FUROSEMIDE 40 MG in SYRINGE 0 ML IV ONE (18:32)
--- NOTE | 2018-10-11 18:57 | XRay Report ---
SINGLE VIEW CHEST CLINICAL HISTORY: Hypoxia. FINDINGS: An AP, portable, upright chest radiograph is compared to chest x-ray and chest CT dated 10/10. The examination is degraded by portable technique and patient rotation. The heart is enlarged and there is atherosclerotic calcification of the thoracic aorta. There is pulmonary vascular conges tion. Postoperative change is noted involving the aortic valve. There are small pleural effusions wit h bibasilar consolidation. Apical scarring is noted. No pneumothorax is seen. The skeletal structures are osteopenic. The bony thorax is grossly intact. Degenerative change and scoliosis are noted in th e thoracic spine. IMPRESSION: 1. Cardiomegaly with evidence of congestive failure. 2. Small pleural effusions with bibasilar consolidation. This is unchanged from yesterday Electronically signed by: Mook Carpio M.D. 10/11/2018 6:55 PM
[2018-10-11 20:25] LABS: BUN Creatinine Ratio 28.7 (10-20); Calcium 8.3 mg/dl (8.5-10.1); Creatinine Clr Calc Pharmacy 15.4 ml/min; Est GFR (African American) 24.5; Est GFR (Non-African American) 21.2; Potassium 4.1 mmol/L (3.5-5.1)
[2018-10-11 20:34] LABS: Troponin I 5.11 ng/ml (0-0.045)
[2018-10-11] MEDS: LEVOTHYROXINE SODIUM 75 MCG TABLET PO SCH (21:12)
[2018-10-11] MEDS: ROPINIROLE HCL 1 MG TABLET PO SCH (21:12)
[2018-10-11] MEDS: AMLODIPINE BESYLATE 5 MG TAB PO SCH (21:12)
[2018-10-11] MEDS: ATORVASTATIN 20 MG TAB PO SCH (21:12)
[2018-10-11] MEDS ORDERED: Heparin IV Standard *NO* Bolus IV SCH (21:30)
[2018-10-11] MEDS ORDERED: Nursing to Pharmacy Communication ONE (22:38)
[2018-10-12] MEDS ORDERED: Heparin IV Standard *NO* Bolus IV SCH (07:50)
[2018-10-12] MEDS: Heparin IV Standard *NO* Bolus IV SCH ×2 (08:03→08:13)
[2018-10-12 08:40] LABS: Partial Thromboplastin Time 26.3 Seconds (21.0-31.0)
[2018-10-12 08:53] LABS: Albumin Level 2.5 gm/dl (3.4-5.0); BUN Creatinine Ratio 31.3 (10-20); Calcium 8.1 mg/dl (8.5-10.1); Creatinine Clr Calc Pharmacy 16.2 ml/min; Est GFR (Non-African American) 22.5; Potassium 3.7 mmol/L (3.5-5.1)
[2018-10-12] MEDS: INSULIN ASPART 100 UNITS/ML 3 ML PEN SC SCH ×4 (08:55→21:27)
[2018-10-12 08:56] LABS: Albumin Globulin Ratio 0.7 (0.9-2); Bilirubin,Total 0.7 mg/dl (0.2-1); Globulin 3.6 gm/dl (2.5-4.0); Total Protein 6.1 gm/dl (6.4-8.2)
[2018-10-12] MEDS: HEPARIN STANDARD DEXTROSE 25,000 UNITS/500 ML IV SCH (08:56)
[2018-10-12] MEDS: INSULIN GLARGINE SOLOSTAR 100 UNITS/ML 3 ML PEN SQ SCH (08:58)
[2018-10-12] MEDS: BUMETANIDE 1 MG TAB PO SCH (08:58)
[2018-10-12] MEDS: METOPROLOL TARTRATE 25 MG TAB PO SCH ×3 (09:00→20:06)
[2018-10-12] MEDS: CEROVITE ADV FORMULA TAB PO SCH (09:01)
[2018-10-12] MEDS: ASPIRIN 81 MG ECTAB PO SCH (09:01)
--- NOTE | 2018-10-12 09:47 | Pharmacy Report ---
Pharmacy Glycemic Short Note 2 - Date of Service October 12, 2018 - Glycemic Short BSG Results (Last 24 hours): 10/11/18 10/11/18 10/11/18 11:29 14:18 16:25 Glucose 162 H POC Glucose 165 H 116 H 10/11/18 10/11/18 10/12/18 20:00 20:22 07:49 Glucose 98 POC Glucose 114 H 91 10/12/18 08:08 Glucose 88 POC Glucose OUTPATIENT ANTIDIABETIC REGIMEN: * Lantus 22 units SQ QAM * A1c = 6.7 % 10/11/18 ASSESSMENT: * Ann-Marie is a 87 year old T2DM female admitted with SOB. She received 29 units of SQ insulin yesterday. * Fasting BSG is at goal (91 mg/dL) but trending downward, therefore I will decrease basal insulin 16%. * Post prandial BSGs are also trending downward, therefore novolog parameters will be loosened. PLAN FOR INPATIENT GLYCEMIC CONTROL: * Basal insulin - decrease * Lantus 185its SQ qAM * Bolus insulin - loosen * NovoLog per scale ACHS or Q6hrs while NPO * Goal Range: Low 110 mg/dL - High 140 mg/dL * Correction Factor: 30 mg/dL/unit * Nutritional / Prandial insulin per carb ratio of 1 unit per 10 grams CHO consumed PLAN FOR DISCHARGE: * A1c of 6.7% is at goal * Continue home regimen of Lantus 22 units qAM on discharge
--- NOTE | 2018-10-12 09:59 | Hospitalist Progress Note ---
Date of Service October 12, 2018 Assessment & Plan (1) NSTEMI (non-ST elevated myocardial infarction): troponin trended up to 5 last night and then 6 this morning still denies chest pain or chest pressure continue aspirin and Lipitor (increase to 40mg from 20mg) heparin drip for 48-72 hours tolerated increased dose of Lopressor, will increase further to 25mg TID and observe on monitor stop Norvasc and Vasotec to allow for higher doses of Lopressor NPO after midnight, have interventional cardiology evaluate tomorrow for possible heart cath had catheterization about 3 years ago prior to TAVR and showed mild disease Echo shows EF down slightly at 50-55% compared to prior EF of 65% there is apical anterior lateral wall hypokinesis (2) Acute on chronic diastolic (congestive) heart failure: Her history of sudden onset shortness of breath is very similar to prior presentations of her diastolic CHF exacerbation. Previous echo in 08/2017 showed EF 60% with mild LVH. CTA chest on 10/10 showed pulmonary edema with small/moderate bilateral pleural eff[place]. [place] [id number]. likely etiology is NSTEMI EF down compared to prior echo, 50-55% will use Bumex 1mg IV q12 for diuresis strict I/O, daily weight Cr is down slightly to 1.9 today (3) Acute respiratory failure with hypoxia: due to pulmonary edema treat with Bumex try to wean oxygen as tolerated (4) COLTEN (acute kidney injury): Cr romero to 2.0 yesterday, down slightly at 1.9 this morning likely due to NSTEMI and aggressive diuresis continue to monitor closely with bumex and possible heart cath tomorrow making adequate urine, K is 3.[address] on KCl 20mEq BID since she is ordered the Bumex holding Vasotec in setting of COLTEN repeat BMP in the AM (5) CKD (chronic kidney disease) stage 3, GFR 30-59 ml/min: Baseline Cr ~1.2 with a GFR ~40 typically on Bumex 1mg PO daily follow BMP daily (6) Facial rash: Has rash on face from an old cream she used that she had found in her medicine cabinet. ED provider gave her Solu-Medrol 125mg IV for it. patient refused topical Benadryl or further steroids rash improving told her to throw away her cream at home (7) HTN (hypertension): BP stable due to acute NM and tachycardia, trying to titrate upward on Lopressor for that reason, will hold Norvasc and Vasotec may even hold these on discharge if she tolerates the higher doses of Lopressor (8) Diabetes: Last A1c was 6.7% from 12/2017. - Lowered home Lantus to 18 units QAM given lower-calorie, hospital diet - Sliding scale continue Lantus on discharge monitor for hypoglycemia (9) Hypothyroid: No signs of hypo-/hyperthryoidism. Last TSH was 1.6 in 12/2017. 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 No major issues, but notes from cardiology indicate it didn't improve how she felt much, so possibly more of it was pleural effusion -related. - Continua ASA echo shows that TAVR in good position and working well (12) Sjogrens syndrome: Has history of lupus and Sjogren's syndrome. Reports that any medications were not helpful because they had more side effect than benefit. - Continue extensive eye-dryness regimen (13) LBBB (left bundle branch block): chronic (14) DVT prophylaxis: heparin drip for NSTEMI Plan: repeat troponin this afternoon and trend until it peaks cardiology following continue heparin drip, aspirin, Lipitor, Lopressor for NSTEMI NPO after midnight, have cardiology evaluate for cath tomorrow Subjective patient resting this morning, no distress breathing is better she refused hadley catheter, able to walk to toilet and void stressed importance with RN to keep close track of output with her heart failure long discussion with patient's daughter at the bedside to discuss situation troponin continues to rise, 6 this morning Cr is stable at 1.97 after diuretic use HR improved to the 80's with increased dose of metoprolol discussed with Dr. Grijalva, will make NPO after midnight and have interventional cards evaluate tomorrow will check troponin this afternoon to see if it is finally trending down Review of Systems All systems reviewed & are unremarkable except as noted in HPI & below Constitutional: + fatigue Respiratory: + dyspnea on exertion Cardiovascular: + dyspnea and + orthopnea; no chest pain and no edema Physical Exam 2 Vital Signs (Past 24 Hours): Last Vital Signs Temp 37 C 10/12/18 07:15 Pulse 82 10/12/18 07:15 Resp 16 10/12/18 07:15 BP 121/64 10/12/18 07:15 Pulse Ox 98 10/12/18 07:15 Constitutional: WD/WN, vitals as above Eyes: PERRL, conjunctivae normal, anicteric sclerae ENMT: external ear and nose normal, oropharynx normal Neck: trachea midline, no thyromegaly Respiratory: normal respiratory effort, lungs clear to auscultation (good airflow in bases of lungs) Auscultation: no rales and no wheezes Cardiovascular: RRR, no murmur, no edema Gastrointestinal (Abdomen): normal bowel sounds, soft, nontender, no hepatosplenomegaly Musculoskeletal: no cyanosis or clubbing, extremities motor strength 5/5 Skin: no rashes, warm and dry Neurologic: patellar DTR's 2+ bilat, sensation intact and PERRL, EOMI, accommodation nl, no face palsy, no dysarthria Psychiatric: A+Ox3, euthymic affect Lymphatic: no cervical or axillary lymphadenopathy Results & Data Laboratory Results Laboratory Results - last 24 hr 10/11/18 10/11/18 10/11/18 11:29 14:18 16:25 APTT PTT Ratio Sodium 135 L Potassium 4.2 Chloride 102 Carbon Dioxide 28 Anion Gap 5.0 BUN 51 H Creatinine 2.05 H D Est Cr Clr Drug Dosing 15.6 Est GFR ( Amer) 24.8 Est GFR (Non-Af Amer) 21.4 BUN/Creatinine Ratio 25.0 H Glucose 162 H POC Glucose 165 H 116 H Calcium 8.2 L Total Bilirubin AST ALT Alkaline Phosphatase Troponin I 3.480 H* Total Protein Albumin Globulin Albumin/Globulin Ratio 10/11/18 10/11/18 10/12/18 20:00 20:22 05:40 APTT PTT Ratio Sodium 134 L Potassium 4.1 Chloride 100 Carbon Dioxide 26 Anion Gap 8.0 BUN 59 H Creatinine 2.07 H Est Cr Clr Drug Dosing 15.4 Est GFR ( Amer) 24.5 Est GFR (Non-Af Amer) 21.2 BUN/Creatinine Ratio 28.7 H Glucose 98 POC Glucose 114 H Calcium 8.3 L Total Bilirubin AST ALT Alkaline Phosphatase Troponin I 5.110 H* 6.480 H* Total Protein Albumin Globulin Albumin/Globulin Ratio 10/12/18 10/12/18 10/12/18 07:49 08:08 08:08 APTT 26.3 PTT Ratio 1.0 Sodium 138 Potassium 3.7 Chloride 103 Carbon Dioxide 28 Anion Gap 7.0 BUN 62 H Creatinine 1.97 H Est Cr Clr Drug Dosing 16.2 Est GFR ( Amer) 26.0 Est GFR (Non-Af Amer) 22.5 BUN/Creatinine Ratio 31.3 H Glucose 88 POC Glucose 91 Calcium 8.1 L Total Bilirubin 0.7 AST 36 ALT 28 Alkaline Phosphatase 57 Troponin I Total Protein 6.1 L Albumin 2.5 L Globulin 3.6 Albumin/Globulin Ratio 0.7 L Diagnostic Findings SINGLE VIEW CHEST CLINICAL HISTORY: Hypoxia. FINDINGS: An AP, portable, upright chest radiograph is compared to chest x-ray and chest CT dated 10/10/2018. The examination is degraded by portable technique and patient rotation. The heart is enlarged and there is atherosclerotic calcification of the thoracic aorta. There is pulmonary vascular congestion. Postoperative change is noted involving the aortic valve. There are small pleural effusions with bibasilar consolidation. Apical scarring is noted. No pneumothorax is seen. The skeletal structures are osteopenic. The bony thorax is grossly intact. Degenerative change and scoliosis are noted in the thoracic spine. IMPRESSION: 1. Cardiomegaly with evidence of congestive failure. 2. Small pleural effusions with bibasilar consolidation. This is unchanged from yesterday Medications Administered Current Inpatient Medications Acetaminophen (Tylenol) 650 mg PO Q4H PRN PRN Reason: pain/fever Stop: 11/09/18 16:44 Artificial Tears (Artificial Tears) 1 drops OPB DAILY PRN PRN Reason: DRY EYES Stop: 11/09/18 17:44 Artificial Tears (Artificial Tears) 1 drops OPB DAILY PRN PRN Reason: DRY EYES Stop: 11/09/18 17:39 Aspirin (Ecotrin Ectab) 81 mg PO DAILY ISIAH Stop: 11/10/18 08:59 Last Admin: 10/12/18 09:01 Dose: 81 mg Atorvastatin Calcium (Lipitor) 20 mg PO PM ISIAH Stop: 11/09/18 20:59 Last Admin: 10/11/18 21:12 Dose: 20 mg Dextrose (Dextrose 50%) 25 - 50 ml IV UD PRN; Protocol PRN Reason: Hypoglycemia Protocol Stop: 11/09/18 16:44 Glucagon (Glucagen) 1 mg SQ UD PRN; Protocol PRN Reason: Hypoglycemia Protocol Stop: 11/09/18 16:44 Glucose (Glucose 40%) 15 - 30 gm PO UD PRN; Protocol PRN Reason: Hypoglycemia Protocol Stop: 11/09/18 16:44 Glucose (Dex4 Glucose) 4 - 8 tabs PO UD PRN; Protocol PRN Reason: Hypoglycemia Protocol Stop: 11/09/18 16:44 Hydralazine HCl (Hydralazine Hcl) 5 mg IV Q4H PRN PRN Reason: Hypertension Stop: 11/09/18 21:38 Heparin Sodium/Dextrose (Heparin Sodium/Dextrose) 25,000 units in 500 mls @ 19 mls/hr IV .Q24H ISIAH; Protocol Stop: 11/11/18 08:14 Last Admin: 10/12/18 08:56 Dose: 950 units/hr, 19 mls/hr Bumetanide 1 mg/ Syringe 4 mls @ 4 mls/min IV BID@0900,1700 ISIAH Stop: 11/11/18 16:59 Insulin Aspart (Novolog Flexpen) 0 units SC ACHS ISIAH Stop: 11/09/18 17:29 Last Admin: 10/12/18 08:55 Dose: Not Given Insulin Glargine (Lantus Solostar Pen) 15 units SQ QAM [facility] Stop: 11/11/18 08:59 Last Admin: 10/12/18 08:58 Dose: 15 units Levothyroxine Sodium (Synthroid) 75 mcg PO PM ISIAH Stop: 11/09/18 20:59 Last Admin: 10/11/18 21:12 Dose: 75 mcg Metoprolol Tartrate (Lopressor) 25 mg PO TID [facility] Stop: 11/11/18 13:59 Miscellaneous (Order Awaiting Action) 1 ea N/A QS [facility] Stop: 11/10/18 00:00 Last Admin: 10/12/18 08:13 Dose: Not Given Miscellaneous (Order Awaiting Action) 1 ea N/A QS [facility] Stop: 11/10/18 00:00 Last Admin: 10/12/18 08:13 Dose: Not Given Miscellaneous (Carbohydrates For Hypoglycemia) 15 - 30 gm PO UD PRN PRN Reason: Hypoglycemia Treatment Stop: 11/09/18 16:44 Miscellaneous Information (Consult Glycemic Management Pharmacy) 1 ea N/A UD [facility]; Protocol Stop: 11/09/18 17:19 Multivitamins/Minerals (Multivitamin W/ Minerals Tab) 1 tab PO QAM [facility] Stop: 11/10/18 08:59 Last Admin: 10/12/18 09:01 Dose: 1 tab Ropinirole HCl (Requip) 1 mg PO PM [facility] Stop: 11/09/18 20:59 Last Admin: 10/11/18 21:12 Dose: 1 mg
--- NOTE | 2018-10-12 12:21 | Cardiology Progress Note ---
Date of Service October 12, 2018 Assessment & Plan (1) SOB (shortness of breath): I suspect her shortness of breath is due to an exacerbation of diastolic congestive heart failure, possibly from salt and fluid intake, however other possibilities exist including this being an ischemic event. Her symptoms have improved dramatically since admission. (2) Acute on chronic diastolic (congestive) heart failure: She has a history of congestive heart failure and I believe had acute heart failure on top of her chronic diastolic heart failure. She appears to be very sensitive to fluid and probably does not need to lose a lot of fluid. She does not have edema. (3) Elevated troponin I level: She continues to have troponin elevation, he continues to rise and is now about 6 on the latest measurement. Although little bit unusual pattern is worrisome, perhaps she has a myocarditis or perhaps some ischemic disease. She had coronary disease prior to her valve replacement (although was not obstructive) and it could have progressed. I think the safest approach would be to perform cardiac catheterization tomorrow. I think a stress test is potentially risky with a rising troponin. (4) LBBB (left bundle branch block): She has a long-standing left bundle branch block, this makes it difficult for us to read her electrocardiogram for localization of myocardial damage. Subjective She is feeling well today, she denies any cardiovascular complaints such as chest discomfort or shortness of breath Physical Exam 2 Vital Signs (Past 24 Hours): Last Vital Signs Temp 38 C H 10/12/18 12:16 Pulse 78 10/12/18 12:16 Resp 22 10/12/18 12:16 BP 127/54 L 10/12/18 12:16 Pulse Ox 94 10/12/18 12:16 Physical Exam: Constitutional: Alert, cooperative and in no distress. Neck: No jugular venous distention, carotid pulses are normal and equal bilaterally without bruits. Pulmonary: Clear to auscultation bilaterally. Cardiac: Regular rhythm with good prosthetic valve sounds, a soft aortic outflow murmur and a diastolic aortic murmur, no gallop or rub. Extremities: No edema. Distal pulses intact. Skin: No rash, ecchymoses or petechiae. Results & Data Diagnostic Findings Telemetry: Sinus rhythm, wide ventricular complex Echo: Done yesterday this shows low normal left ventricular systolic function with moderate concentric left ventricular hypertrophy and some wall motion abnormalities in the apical anterolateral area. She has a prosthetic aortic valve with normal gradients. Similar to August 2017.
[2018-10-12] MEDS: POTASSIUM CHLORIDE 20 MEQ TABCR PO SCH ×2 (12:28→20:06)
[2018-10-12] MEDS ORDERED: VANCOMYCIN CONSULT ACTIVE PRN (14:25)
[2018-10-12] MEDS ORDERED: PIPERACILL/TAZOBAC CONSULT ACTIVE PRN (14:25)
[2018-10-12] MEDS ORDERED: VANCOMYCIN HCL 1,000 MG in SODIUM CHLORIDE 0.9% 250 ML IV SCH (14:30)
[2018-10-12] MEDS ORDERED: PIPERACILLIN/TAZOBACTAM 3.375 GM in DEXTROSE 5% 100 ML IV STA (14:33)
[2018-10-12] MEDS ORDERED: VANCOMYCIN HCL 1,250 MG in SODIUM CHLORIDE 0.9% 250 ML IV STA (14:34)
[2018-10-12 15:09] LABS: Basophils # (auto) 0.02 K/uL (0-0.2); Basophils % (auto) 0.1 %; Hematocrit (blood only) 33.1 % (37-47); Immature Granulocytes # (auto) 0.05 K/uL (0.00-0.02); Immature Granulocytes % (auto) 0.3 %; Lymphocytes # (auto) 1.61 K/uL (1.2-3.4); Lymphocytes % (auto) 10.2 %; Mean Corpuscular Hgb Conc 33.2 g/dL (32-36); Mean Corpuscular Volume 96.8 fL (80-100); Mean Platelet Volume 11.3 fL (7.4-10.4); Monocytes # (auto) 1.92 K/uL (0.11-0.59); Monocytes % (auto) 12.2 %; Neutrophils # (auto) 12.18 K/uL (1.4-6.5); Neutrophils % (auto) 77.2 %; Platelet Count 233 K/uL (130-400); RDW Coefficient of Variation 15.5 % (11.5-14.5); Red Blood Count 3.42 M/uL (4.2-5.4); White Blood Count 15.78 K/uL (4.8-10.8)
[2018-10-12 15:30] LABS: Partial Thromboplastin Ratio 1.7; Partial Thromboplastin Time 43.2 Seconds (21.0-31.0)
[2018-10-12 15:35] LABS: Calcium 7.8 mg/dl (8.5-10.1); Creatinine Clr Calc Pharmacy 16.3 ml/min; Est GFR (African American) 26.2; Est GFR (Non-African American) 22.6; Potassium 3.9 mmol/L (3.5-5.1)
--- NOTE | 2018-10-12 15:38 | Pharmacy Report ---
Pharmacy Abx Dose Short Note - Date of Service October 12, 2018 - Assessment & Plan Microbiology 10/12/18 15:00 Blood Blood Culture--Pending 10/12/18 14:52 Blood Blood Culture--Pending 10/10/18 10:25 Blood Blood Culture - Preliminary No growth to date. 10/10/18 10:20 Blood Blood Culture - Preliminary No growth to date. Selected Entries 10/12/18 12:16 Temperature 38 C H Laboratory Tests 10/11/18 10/11/18 10/12/18 07:25 14:18 08:08 WBC 21.18 H Creatinine 2.05 H D 1.97 H Est Cr Clr Drug Dosing 15.6 16.2 10/12/18 14:53 WBC 15.78 H Creatinine Est Cr Clr Drug Dosing Assessment 87 year old F admitted 10/10/18, spiking a fever, adding BC x 2 and empirically starting broad spectrum IV Vanc/Zosyn Plan Vanc-IV: * LOADING DOSE: VANC 1250mg (~22mg/kg) IV x 1, then * Random VANC level ordered with 2/11 AM labs to guide subsequent dosing * Goal random/trough level to guide redose: < 20 mcg/mL Piperacillin/Tazobactam Extended Infusion: 3.375g IV bolus, then 3.375g IV q 12 hrs for est CrCL < 20mL/min (8 hrs after load). Pharmacy will continue to follow and will adjust dose/frequency as necessary. Thank you.
[2018-10-12] MEDS ORDERED: HEPARIN IV BOLUS 2,000 UNITS in SYRINGE 0 ML IV ONE (16:15)
[2018-10-12] MEDS: BUMETANIDE 1 MG in SYRINGE 0 ML IV SCH (16:39)
[2018-10-12 18:40] LABS: Appearance Urine Clear (Clear); Bacteria Urine Automated Negative (Negative); Bilirubin Urine Negative (Negative); Blood Urine Negative (Negative); Color Urine Yellow; Epithelial Cell Urine Auto >30 /lpf (0-5); Glucose Urine UA Negative (Negative); Ketones Urine Negative (Negative); Leukocyte Esterase Urine 1+ (Negative); Nitrite Urine Negative (Negative); Protein Urine Negative (Negative); RBC Urine Automated 0-4 /hpf (0-4); Specific Gravity Urine 1.014 (1.000-1.030); Urobilinogen Urine Negative (Negative)
[2018-10-12] MEDS: LEVOTHYROXINE SODIUM 75 MCG TABLET PO SCH (20:05)
[2018-10-12] MEDS: ROPINIROLE HCL 1 MG TABLET PO SCH (20:06)
[2018-10-12] MEDS: ATORVASTATIN 40 MG TAB PO SCH (20:06)
[2018-10-12 22:59] LABS: Partial Thromboplastin Time 77.3 Seconds (21.0-31.0)
[2018-10-13] MEDS: PIPERACILLIN/TAZOBACTAM 3.375 GM in DEXTROSE 5% 100 ML IV SCH ×3 (01:05→23:46)
[2018-10-13 05:27] LABS: Hematocrit (blood only) 34.1 % (37-47); Hemoglobin 11.5 g/dL (12.0-16.0); Mean Corpuscular Hgb Conc 33.7 g/dL (32-36); Mean Corpuscular Volume 97.4 fL (80-100); Mean Platelet Volume 11.1 fL (7.4-10.4); Platelet Count 228 K/uL (130-400); RDW Coefficient of Variation 15.4 % (11.5-14.5); White Blood Count 16.16 K/uL (4.8-10.8)
[2018-10-13 05:43] LABS: Partial Thromboplastin Ratio 2.3
[2018-10-13 06:02] LABS: BUN Creatinine Ratio 25.5 (10-20); Calcium 7.8 mg/dl (8.5-10.1); Creatinine Clr Calc Pharmacy 15.2 ml/min; Est GFR (African American) 24.1; Est GFR (Non-African American) 20.8; Potassium 3.9 mmol/L (3.5-5.1)
[2018-10-13 06:05] LABS: Partial Thromboplastin Time 60.7 Seconds (21.0-31.0)
[2018-10-13] MEDS: ACETAMINOPHEN 325 MG TAB PO PRN (08:39)
[2018-10-13] MEDS: BUMETANIDE 1 MG in SYRINGE 0 ML IV SCH ×2 (08:41→17:34)
[2018-10-13] MEDS: ASPIRIN 81 MG ECTAB PO SCH (08:42)
[2018-10-13] MEDS: POTASSIUM CHLORIDE 20 MEQ TABCR PO SCH ×2 (08:42→20:57)
[2018-10-13] MEDS: METOPROLOL TARTRATE 25 MG TAB PO SCH ×3 (08:42→20:55)
[2018-10-13] MEDS: CEROVITE ADV FORMULA TAB PO SCH (08:43)
[2018-10-13] MEDS: INSULIN ASPART 100 UNITS/ML 3 ML PEN SC SCH ×4 (08:56→20:58)
[2018-10-13] MEDS: INSULIN GLARGINE SOLOSTAR 100 UNITS/ML 3 ML PEN SQ SCH (08:58)
[2018-10-13] MEDS ORDERED: VANCOMYCIN HCL 750 MG in SODIUM CHLORIDE 0.9% 250 ML IV ONE (09:00)
--- NOTE | 2018-10-13 10:44 | Pharmacy Report ---
Pharmacy Glycemic Short Note 2 - Date of Service October 13, 2018 - Glycemic Short BSG Results (Last 24 hours): 10/12/18 10/12/18 10/12/18 11:19 14:53 16:15 Glucose 83 POC Glucose 107 H 93 10/12/18 10/13/18 10/13/18 20:15 05:15 07:25 Glucose 172 H POC Glucose 225 H 204 H OUTPATIENT ANTIDIABETIC REGIMEN: * Lantus 22 units SQ QAM * A1c = 6.7 % 10/11/18 ASSESSMENT: 10/13/18 * Ms. Giraldo received 18 units of insulin yesterday, with 15 of this being basal * Minimal/no po intake documented yesterday and she is now NPO for a cardiac cath * Fasting BSG = 172 mg/dL; this is up significantly from yesterday but I'm hesitant to increase until we see a trend, especially since her BSGs were dropping after 18 units of basal. For now, will tighten Novolog parameters to provide more correctional insulin and then add this to basal dose if requirements are high. 10/12/18 * Ann-Marie is a 87 year old T2DM female admitted with SOB. She received 29 units of SQ insulin yesterday. * Fasting BSG is at goal (91 mg/dL) but trending downward, therefore I will decrease basal insulin 16%. * Post prandial BSGs are also trending downward, therefore novolog parameters will be loosened. PLAN FOR INPATIENT GLYCEMIC CONTROL: * Basal insulin - no change * Lantus 15 units SQ qAM * Bolus insulin - tighten CF/CR * NovoLog per scale ACHS or Q6hrs while NPO * Goal Range: Low 110 mg/dL - High 140 mg/dL * Correction Factor: 25 mg/dL/unit * Nutritional / Prandial insulin per carb ratio of 1 unit per 10 grams CHO consumed PLAN FOR DISCHARGE: * A1c of 6.7% is at goal * Continue home regimen of Lantus 22 units qAM on discharge
[2018-10-13] MEDS: HEPARIN STANDARD DEXTROSE 25,000 UNITS/500 ML IV SCH (11:05)
--- NOTE | 2018-10-13 14:49 | Pharmacy Report ---
Pharmacy Abx Dose Short Note - Date of Service October 13, 2018 - Assessment & Plan Assessment 87 year old F admitted for NSTEMI and CHF. She is now receiving empiric vancomycin + Zosyn for treatment of fever, WBC and GPC in 1 of 2 blood cultures Day # 2 of antimicrobial therapy. ID now consulted for their recommendations. Patient currently in COLTEN, baseline SCr ~1.2. Need to be cautious with vancomycin dosing, especially in setting of CKD and concurrent Zosyn. Plan Vancomycin * Random level of 14.8 mcg/mL indicates a need to re-dose * Give 750 mg (~13 mg/kg) IV x 1 and then recheck random level w/ AM labs tomorrow - t1/2 estimated at 39 hours but elderly low body weight patients tend to clear vanc quickly and we've seen this already * Will re-dose when level < 20 mcg/mL Zosyn * 3.375 gm IV q12h for CrCl < 20 mL/min Pharmacy will continue to follow and will adjust dose/frequency as necessary. Thank you.
--- NOTE | 2018-10-13 14:59 | Infectious Disease Consult ---
Date of Consultation October 13, 2018 Assessment & Plan (1) Gram-positive bacteremia: 87-year-old female with congestive heart failure with transient fever, leukocytosis, and now with 1 out of 2 blood cultures positive for gram-positive cocci. Not clear whether this represents true infection or contaminant, and so would recommend continuing on vancomycin pending final identification. Further workup will be determined by culture results. Will follow. History of Present Illness Reason for Consultation: Fever, elevated white blood cell count, 1 of 2+ blood cultures Attending Physician: Milind Davies History of Present Illness 87-year-old female with history of chronic diastolic congestive heart failure, diabetes mellitus, transcatheter aortic valve repair, who was admitted to the hospital October 10 with several day history of progressively worsening shortness of breath. Was found to have rising troponin consistent with possible acute NE. Last night, had fever with chills, and now 1 out of 2 bottles growing gram-positive cocci. Has been given vancomycin and Zosyn, no fever today so far. States that she was not febrile prior to admission, no productive cough. No urinary or GI complaints. Allergies Allergy/AdvReac Type Severity Reaction Status Date / Time metformin AdvReac Unknown . Verified 10/03/17 11:41 oxycodone AdvReac Unknown HALLUCINATI Verified 10/03/17 11:41 ONS Home Medications Home Medications Medication Instructions Recorded Confirmed Type C,E,zinc,copper [id number] 1 cap PO QAM 10/10/18 10/10/18 History [Ocuvite Adult 50 Plus] amlodipine 5 mg PO PM 10/10/18 10/10/18 History aspirin 81 mg PO DAILY 10/10/18 10/10/18 History atorvastatin 20 mg PO PM 10/10/18 10/10/18 History benazepril 20 mg PO DAILY 10/10/18 10/10/18 History bromfenac [Prolensa] 1 drp OPB DAILY 10/10/18 10/10/18 History bumetanide 1 mg PO DAILY 10/10/18 10/10/18 History calcium carbonate [Calcium 600] 600 mg PO BID 10/10/18 10/10/18 History cholecalciferol (vitamin D3) 2,000 unit PO DAILY 10/10/18 10/10/18 History [Vitamin D3] cyanocobalamin (vitamin B-12) 1,000 mcg PO DAILY 10/10/18 10/10/18 History [Vitamin B-12] diphenoxylate-atropine [Lomotil] 2 tab PO BID PRN 10/10/18 10/10/18 History insulin glargine [Lantus Solostar 22 units SUBCUT QAM 10/10/18 10/10/18 History U-100 Insulin] levothyroxine 75 mcg PO PM 10/10/18 10/10/18 History meloxicam 7.5 mg PO DAILY 10/10/18 10/10/18 History metoprolol tartrate 12.5 mg PO BID 10/10/18 10/10/18 History peg 400-propylene glycol (PF) 1 drp OPB DAILY PRN 10/10/18 10/10/18 History [Systane (PF)] ropinirole 1 mg PO PM 10/10/18 10/10/18 History white petrolatum-mineral oil 1 applic OPB DAILY 10/10/18 10/10/18 History [Refresh P.M.] white petrolatum-mineral oil 1 applic OPB DAILY PRN 10/10/18 10/10/18 History [Systane Nighttime] Patient History Medical History Diabetes (Chronic) HTN (hypertension) (Chronic) Diastolic heart failure Neuropathy Vitiligo Surgical History S/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 Family History Father Heart attack Social History Current Living Situation: Alone Other Information That Helps Us Care for You: No Feels Safe at Home: Yes Safety Concerns: Feels Safe At This Time Smoking Status: Unknown if ever smoked Hx Alcohol Use: No Hx Substance Use: No Beliefs That Will Affect Care: None Communication Ability: Effective Review of Systems All systems were reviewed and are negative except as per HPI Physical Exam 2 Vital Signs (Past 24 Hours): Last Vital Signs Temp 36.6 C 10/13/18 14:28 Pulse 65 02/11/19 14:28 Resp 18 10/13/18 14:28 BP 101/50 L 10/13/18 14:28 Pulse Ox 96 10/13/18 14:28 Constitutional: WD/WN, vitals as above comfortable; no acute distress Eyes: PERRL, conjunctivae normal, anicteric sclerae ENMT: external ear and nose normal, oropharynx normal Neck: trachea midline, no thyromegaly neck nontender Respiratory: normal respiratory effort; no respiratory distress and does not use accessory muscles Auscultation: + rales Cardiovascular: Rate/Rhythm: regular rate and regular rhythm Heart Sounds: normal S1, normal S2 and + murmur (Systolic and diastolic) Gastrointestinal (Abdomen): normal bowel sounds, soft, nontender, no hepatosplenomegaly Musculoskeletal: no cyanosis or clubbing, extremities motor strength 5/5 Spine: thoracic spine normal to inspection and lumbar spine normal to inspection ; no cervical spinal tenderness Skin: no rashes, warm and dry normal turgor; no lesions Neurologic: patellar DTR's 2+ bilat, sensation intact no focal motor deficits Psychiatric: A+Ox3, euthymic affect Orientation: cooperative Lymphatic: no cervical or axillary lymphadenopathy no inguinal lymphadenopathy Results & Data Laboratory Results Short CBC 10/12/18 10/13/18 Range/Units 14:53 05:15 WBC 15.78 H 16.16 H (4.8-10.8) K/uL Hgb 11.0 L 11.5 L (12.0-16.0) g/dL Hct 33.1 L 34.1 L (37-47) % Plt Count 233 228 (130-400) K/uL BMP 10/12/18 10/13/18 14:53 05:15 Sodium 135 L 138 Potassium 3.9 3.9 Chloride 102 101 Carbon Dioxide 26 28 BUN 55 H 54 H Creatinine 1.96 H 2.10 H Glucose 83 172 H Calcium 7.8 L 7.8 L Urine 10/12/18 Range/Units 18:25 Urine Color Yellow Urine Appearance Clear (Clear) Urine pH 5.0 (4.5-7.5) Ur Specific [place] 1.014 (1.000-1.030) Urine Protein Negative (Negative) Urine Glucose (UA) Negative (Negative) Diagnostic Findings Microbiology 10/12/18 14:52 Blood Blood Culture - Preliminary Gram positive cocci 10/10/18 10:25 Blood Blood Culture - Preliminary No growth to date. 10/10/18 10:20 Blood Blood Culture - Preliminary No growth to date. SINGLE VIEW CHEST CLINICAL HISTORY: Hypoxia. FINDINGS: An AP, portable, upright chest radiograph is compared to chest x-ray and chest CT dated 10/10/2018. The examination is degraded by portable technique and patient rotation. The heart is enlarged and there is atherosclerotic calcification of the thoracic aorta. There is pulmonary vascular congestion. Postoperative change is noted involving the aortic valve. There are small pleural effusions with bibasilar consolidation. Apical scarring is noted. No pneumothorax is seen. The skeletal structures are osteopenic. The bony thorax is grossly intact. Degenerative change and scoliosis are noted in the thoracic spine. IMPRESSION: 1. Cardiomegaly with evidence of congestive failure. 2. Small pleural effusions with bibasilar consolidation. This is unchanged from yesterday
--- NOTE | 2018-10-13 17:15 | Cardiology Progress Note ---
Date of Service October 13, 2018 Assessment & Plan (1) SOB (shortness of breath): Seems that her symptoms have improved but according to her chart she has not affected a good diuresis. There may be an alternate etiology for her breathing difficulties. Unfortunately, her catheterization was deferred today otherwise we would have obtained a left ventricular end-diastolic pressure. I think we can obtain an N terminal proBNP tomorrow to help guide our need for more aggressive diuresis. (2) Acute on chronic diastolic (congestive) heart failure: She has a history of congestive heart failure and I believe had acute heart failure on top of her chronic diastolic heart failure. She appears to be very sensitive to fluid and probably does not need to lose a lot of fluid. She does not have edema. (3) Elevated troponin I level: This seems unusual for an acute coronary syndrome. She did not report symptoms of chest pain either prior to admission or during admission. Her rising markers followed her admission. Unfortunately, her EKG is not interpretable due to baseline left bundle branch block. There was some interest in coronary angiography today, but with her fever and renal dysfunction I think this can be safely deferred. I think this is more likely a non coronary etiology such as a myocarditis. (4) LBBB (left bundle branch block): She has a long-standing left bundle branch block, this makes it difficult for us to read her electrocardiogram for localization of myocardial damage. Subjective This morning the patient had no specific complaints. She did appear to be somewhat confused and often gave repetitive answers. Some of the history was obtained from her daughter who was at the bedside. No specific breathing difficulty. No symptoms of chest discomfort. Minimal ambulation. She does appear to be somewhat weak. She had a fever this morning. Physical Exam 2 Vital Signs (Past 24 Hours): Last Vital Signs Temp 36.6 C 10/13/18 14:28 Pulse 65 10/13/18 14:28 Resp 18 10/13/18 14:28 BP 101/50 L 10/13/18 14:28 Pulse Ox 96 10/13/18 15:35 Physical Exam: She is alert and oriented x3. Mood affect appear normal. She answered all questions appropriately, but did give repetitive answers at times looked to her daughter for guidance. HEENT: Sclerae are anicteric. Pupils are equal and reactive to light and accommodation. Extraocular movements were intact. Neuro: Cranial nerves intact Neck: Examination of the submandibular region did not reveal any significant lymphadenopathy. Carotids are palpable bilaterally and free of bruits on auscultation. There was no evidence of jugular venous distention. The thyroid was not enlarged. Lungs: Occasional crackle in the right base. Left lung appeared clear. No expiratory wheezing. Cardiac: The rhythm was regular. S1 and S2 were normal. There are no murmurs on examination. The PMI was not markedly displaced on palpation. Abdomen: The abdomen was soft and nontender. Extremities: Patient has bilateral radial pulses that are equal in intensity. There is no evidence cyanosis or clubbing. There was no evidence of significant peripheral edema bilaterally. Skin: There are no rashes noted on examination today. Results & Data Laboratory Results Abnormal Lab Results 10/12/18 10/12/18 10/12/18 18:25 20:15 22:32 WBC RBC Hgb Hct MCV MCH MCHC RDW Std Deviation RDW Coeff of Tru Plt Count MPV APTT 77.3 H* PTT Ratio 3.0 Sodium Potassium Chloride Carbon Dioxide Anion Gap BUN Creatinine Est Cr Clr Drug Dosing Est GFR ( Amer) Est GFR (Non-Af Amer) BUN/Creatinine Ratio Glucose POC Glucose 225 H Calcium Urine Color Yellow Urine Appearance Clear Urine pH 5.0 Ur Specific [place] 1.014 Urine Protein Negative Urine Glucose (UA) Negative Urine Ketones Negative Urine Blood Negative Urine Nitrite Negative Urine Bilirubin Negative Urine Urobilinogen Negative Ur Leukocyte Esterase 1+ H Urine WBC (Auto) 5-10 H Urine RBC (Auto) 0-4 U Hyaline Cast (Auto) 1-5 U Epithel Cells (Auto) >30 H Urine Bacteria (Auto) Negative Random Vancomycin 10/13/18 10/13/18 10/13/18 05:15 05:15 05:15 WBC RBC Hgb Hct MCV MCH MCHC RDW Std Deviation RDW Coeff of Tru Plt Count MPV APTT 60.7 H* PTT Ratio 2.3 Sodium 138 Potassium 3.9 Chloride 101 Carbon Dioxide 28 Anion Gap 8.0 BUN 54 H Creatinine 2.10 H Est Cr Clr Drug Dosing 15.2 Est GFR ( Amer) 24.1 Est GFR (Non-Af Amer) 20.8 BUN/Creatinine Ratio 25.5 H Glucose 172 H POC Glucose Calcium 7.8 L Urine Color Urine Appearance Urine pH Ur Specific [place] Urine Protein Urine Glucose (UA) Urine Ketones Urine Blood Urine Nitrite Urine Bilirubin Urine Urobilinogen Ur Leukocyte Esterase Urine WBC (Auto) Urine RBC (Auto) U Hyaline Cast (Auto) U Epithel Cells (Auto) Urine Bacteria (Auto) Random Vancomycin 14.8 10/13/18 10/13/18 10/13/18 05:15 07:25 11:12 WBC 16.16 H RBC 3.50 L Hgb 11.5 L Hct 34.1 L MCV 97.4 MCH 32.9 MCHC 33.7 RDW Std Deviation 55.0 H RDW Coeff of Tru 15.4 H Plt Count 228 MPV 11.1 H APTT PTT Ratio Sodium Potassium Chloride Carbon Dioxide Anion Gap BUN Creatinine Est Cr Clr Drug Dosing Est GFR ( Amer) Est GFR (Non-Af Amer) BUN/Creatinine Ratio Glucose POC Glucose 204 H 203 H Calcium Urine Color Urine Appearance Urine pH Ur Specific [place] Urine Protein Urine Glucose (UA) Urine Ketones Urine Blood Urine Nitrite Urine Bilirubin Urine Urobilinogen Ur Leukocyte Esterase Urine WBC (Auto) Urine RBC (Auto) U Hyaline Cast (Auto) U Epithel Cells (Auto) Urine Bacteria (Auto) Random Vancomycin 10/13/18 16:41 WBC RBC Hgb Hct MCV MCH MCHC RDW Std Deviation RDW Coeff of Tru Plt Count MPV APTT PTT Ratio Sodium Potassium Chloride Carbon Dioxide Anion Gap BUN Creatinine Est Cr Clr Drug Dosing Est GFR ( Amer) Est GFR (Non-Af Amer) BUN/Creatinine Ratio Glucose POC Glucose 113 H Calcium Urine Color Urine Appearance Urine pH Ur Specific [place] Urine Protein Urine Glucose (UA) Urine Ketones Urine Blood Urine Nitrite Urine Bilirubin Urine Urobilinogen Ur Leukocyte Esterase Urine WBC (Auto) Urine RBC (Auto) U Hyaline Cast (Auto) U Epithel Cells (Auto) Urine Bacteria (Auto) Random Vancomycin
[2018-10-13] MEDS: LACTOBACILLUS ACIDOPHILUS (FLORANEX) TAB PO SCH ×2 (17:34→20:56)
[2018-10-13] MEDS: ATORVASTATIN 40 MG TAB PO SCH (20:55)
[2018-10-13] MEDS: LEVOTHYROXINE SODIUM 75 MCG TABLET PO SCH (20:56)
[2018-10-13] MEDS: ROPINIROLE HCL 1 MG TABLET PO SCH (20:56)
[2018-10-14 07:33] LABS: Partial Thromboplastin Ratio 2.6
[2018-10-14 07:44] LABS: Creatinine Clr Calc Pharmacy 16.2 ml/min; Est GFR (Non-African American) 22.5
[2018-10-14 07:48] LABS: NT Pro B Type Natriuretic Pept > 35000 pg/ml (0-1800)
[2018-10-14 08:14] LABS: Partial Thromboplastin Time 67.4 Seconds (21.0-31.0)
[2018-10-14] MEDS: INSULIN ASPART 100 UNITS/ML 3 ML PEN SC SCH ×4 (09:15→20:35)
[2018-10-14] MEDS: INSULIN GLARGINE SOLOSTAR 100 UNITS/ML 3 ML PEN SQ SCH (09:19)
[2018-10-14] MEDS: LACTOBACILLUS ACIDOPHILUS (FLORANEX) TAB PO SCH ×4 (09:20→20:33)
[2018-10-14] MEDS: BUMETANIDE 1 MG in SYRINGE 0 ML IV SCH ×2 (09:22→17:14)
[2018-10-14] MEDS: ASPIRIN 81 MG ECTAB PO SCH (09:22)
[2018-10-14] MEDS: CEROVITE ADV FORMULA TAB PO SCH (09:23)
[2018-10-14] MEDS: METOPROLOL TARTRATE 25 MG TAB PO SCH ×3 (09:23→20:34)
[2018-10-14] MEDS: POTASSIUM CHLORIDE 20 MEQ TABCR PO SCH ×2 (09:23→20:34)
[2018-10-14] MEDS: VANCOMYCIN HCL 1,000 MG in SODIUM CHLORIDE 0.9% 250 ML IV SCH (09:41)
--- NOTE | 2018-10-14 10:23 | Hospitalist Progress Note ---
Date of Service October 13, 2018 Assessment & Plan (1) NSTEMI (non-ST elevated myocardial infarction): troponin trended up to 7 last night still denies chest pain or chest pressure Plan was for cardiac intervention today, however due to fevers and renal failure , will postpone. continue aspirin and Lipitor (increase to 40mg from 20mg) heparin drip for 48-72 hours on metoprolol 25mg TID and observe on monitor had catheterization about 3 years ago prior to TAVR and showed mild disease Echo shows EF down slightly at 50-55% compared to prior EF of 65% there is apical anterior lateral wall hypokinesis (2) Acute on chronic diastolic (congestive) heart failure: Her history of sudden onset shortness of breath is very similar to prior presentations of her diastolic CHF exacerbation. Previous echo in 08/2017 showed EF 60% with mild LVH. CTA chest on 10/10 showed pulmonary edema with small/moderate bilateral pleural [place]. [place] [address]. likely etiology is NSTEMI EF down compared to prior echo, 50-55% will use Bumex 1mg IV q12 for diuresis strict I/O, daily weight Cr is 2.1 today. (3) Acute respiratory failure with hypoxia: due to pulmonary edema treat with Bumex try to wean oxygen as tolerated (4) COLTEN (acute kidney injury): Creat. romero to 2.1 will monitor. likely due to NSTEMI and aggressive diuresis continue to monitor closely with bumex and possible heart cath tomorrow will place on KCl 20mEq BID since she is ordered the Bumex holding Vasotec in setting of COLTEN (5) CKD (chronic kidney disease) stage 3, GFR 30-59 ml/min: Baseline Cr ~1.2 with a GFR ~40 typically on Bumex 1mg PO daily follow BMP daily (6) Facial rash: Has rash on face from an old cream she used that she had found in her medicine cabinet. ED provider gave her Solu-Medrol 125mg IV for it. patient refused topical Benadryl or further steroids rash improving told her to throw away her cream at home (7) HTN (hypertension): BP stable due to acute MD and tachycardia, trying to titrate upward on Lopressor for that reason, will hold Norvasc and Vasotec may even hold these on discharge if she tolerates the higher doses of Lopressor (8) Diabetes: Last A1c was 6.7% from 12/2017. - Lowered home Lantus to 18 units QAM given lower-calorie, hospital diet - Sliding scale continue Lantus on discharge monitor for hypoglycemia (9) Hypothyroid: No signs of hypo-/hyperthryoidism. Last TSH was 1.6 in 12/2017. 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 No major issues, but notes from cardiology indicate it didn't improve how she felt much, so possibly more of it was pleural effusion -related. - Continua ASA echo shows that TAVR in good position and working well (12) Sjogrens syndrome: Has history of lupus and Sjogren's syndrome. Reports that any medications were not helpful because they had more side effect than benefit. - Continue extensive eye-dryness regimen (13) LBBB (left bundle branch block): chronic (14) DVT prophylaxis: heparin drip for NSTEMI spent 35 minutes in management of patient. Subjective patient resting this morning, no distress Breathing is better than when she was admitted but no significant improvement from yesterday. stressed importance with RN to keep close track of output with her heart failure long discussion with patient's daughter at the bedside to discuss situation troponin continues to rise, 7. HR improved to the 80's with increased dose of metoprolol Plan initally was for cardiac cath today, but this was postponed given her fever and renal dysfunction. Constitutional: + fatigue Respiratory: + dyspnea on exertion Cardiovascular: + dyspnea and + orthopnea; no chest pain and no edema Physical Exam 2 Vital Signs (Past 24 Hours): Last Vital Signs Temp 36.7 C 10/13/18 11:25 Pulse 66 10/13/18 11:25 Resp 18 10/13/18 11:25 BP 108/58 10/13/18 11:25 Pulse Ox 94 10/13/18 11:25 Physical Exam: Constitutional: WD/WN, vitals as above Eyes: PERRL, conjunctivae normal, anicteric sclerae ENMT: external ear and nose normal, oropharynx normal Neck: trachea midline, no thyromegaly Respiratory: normal respiratory effort, lungs clear to auscultation (good airflow in bases of lungs) Auscultation: no rales and no wheezes Cardiovascular: RRR, no murmur, no edema Gastrointestinal (Abdomen): normal bowel sounds, soft, nontender, no hepatosplenomegaly Musculoskeletal: no cyanosis or clubbing, extremities motor strength 5/5 Skin: no rashes, warm and dry Neurologic: patellar DTR's 2+ bilat, sensation intact and PERRL, EOMI, accommodation nl, no face palsy, no dysarthria Psychiatric: A+Ox3, euthymic affect Lymphatic: no cervical or axillary lymphadenopathy
--- NOTE | 2018-10-14 11:17 | Pharmacy Report ---
Pharm Abx/Gly Prg Nt - Date of Service October 14, 2018 - Scope Pharmacy has been consulted to manage vancomycin and Zosyn dosing and glycemic control for this patient as per the Pharmacy & Therapeutics Committee approved dosing protocols. - Objective Height: 5 ft 2 in Weight: 58.3 kg Vital Signs (Past 12hrs): Vital Signs Temp Pulse Pulse Pulse Resp BP BP 10/14/18 08:05 36.6 C 65 16 109/59 L 10/14/18 03:41 37 C 73 18 120/49 L 10/13/18 23:35 37.2 C 85 18 128/62 10/13/18 23:15 78 Pulse Ox 10/14/18 08:05 95 10/14/18 03:41 96 10/13/18 23:35 96 10/13/18 23:15 Lab Results: Laboratory Tests (24 Hours) 10/14/18 10/14/18 06:48 06:48 Creatinine 1.97 H Est Cr Clr Drug Dosing 16.2 Random Vancomycin 12.0 Accuchecks BSG (last 24 hours):: 10/13/18 10/13/18 10/13/18 11:12 16:41 20:17 POC Glucose 203 H 113 H 213 H 10/14/18 07:41 POC Glucose 196 H HbA1C: Hemoglobin A1c 6.7 % (4.5-5.6) H 10/11/18 07:25 - Outpatient Anti-Diabetic Regimen Recent Pertinent Medications: Outpatient Anti-diabetic Regimen: * Lantus 22 units qAM * A1c = 6.7 % 10/11/18 The patient is currently receiving: * Basal insulin: Lantus 15 units every 24 hours * Correctional Insulin: Novolog Correction per scale ACHS Goal Range: Low 110 mg/dL - High 140 mg/dL Correction Factor: 25 mg/dL/unit * Prandial insulin: Per carb ratio of 1 unit per 10 grams CHO consumed Risk Factors for Insulin Resistance: * Infection * IVF: heparin drip mixed in dextrose * Diet: type 2 diabetes - Assessment & Plan Assessment: ID: * 87 year old F receiving vancomycin and Zosyn for treatment of fevers, elevated WBC and 1 of 2 blood cultures positive for strep species * Day # 3 of antimicrobial therapy * ID has been consulted and recommends to continue vancomycin for now in light of fevers and white count * For vancomycin, random level of 12 mcg/mL is subtherapeutic and indicates a need to re-dose. She received 750 mg yesterday AM to produce this level ~24 hours later. SCr slightly fluctuating but remains at ~2 mcg/mL (still above goal). Glycemic: 10/14/18 * Patient received 24 units of insulin yesterday (basically all correctional + basal) while NPO * Diet has been advanced today * Fasting BSG = 196 mg/dL * Based on fasting BSG and requirements yesterday, will increase basal dose by 20%. Hesitant to be too aggressive since higher doses dropped BSGs in the past. 10/13/18 * Ms. Giraldo received 18 units of insulin yesterday, with 15 of this being basal * Minimal/no po intake documented yesterday and she is now NPO for a cardiac cath * Fasting BSG = 172 mg/dL; this is up significantly from yesterday but I'm hesitant to increase until we see a trend, especially since her BSGs were dropping after 18 units of basal. For now, will tighten Novolog parameters to provide more correctional insulin and then add this to basal dose if requirements are high. Plan: ANTIMICROBIAL THERAPY Vancomycin * 1 gm IV q24h starting this AM * Goal trough level: 15 to 20 mcg/mL * Trough level ordered for: 10/16/18 prior to the 0900 dose Zosyn * 3.375 gm IV q12h is appropriate * Recommend to d/c per ID notes to continue vancomycin INPATIENT GLYCEMIC CONTROL Basal Insulin - increase * Lantus 18 units SQ qAM Bolus Insulin - no change * NovoLog per scale ACHS or Q6hrs while NPO * Goal Range: Low 110 mg/dL - High 140 mg/dL * Correction Factor: 25 mg/dL/unit * Nutritional / Prandial insulin per carb ratio of 1 unit per 10 grams CHO consumed * Please note that the plan above was derived based on current level of insulin resistance and hospital stress. These recommendations are appropriate for inpatient admission only. Plan of care upon discharge will need to be reassessed to avoid potential outpatient hypo/hyperglycemia. Pharmacy will follow patient and adjust orders on a daily basis. Thank you for allowing us to participate in this patients care.
[2018-10-14] MEDS: PIPERACILLIN/TAZOBACTAM 3.375 GM in DEXTROSE 5% 100 ML IV SCH (12:22)
[2018-10-14] MEDS: HEPARIN STANDARD DEXTROSE 25,000 UNITS/500 ML IV SCH (15:23)
--- NOTE | 2018-10-14 16:18 | Cardiology Progress Note ---
Date of Service October 14, 2018 Assessment & Plan (1) SOB (shortness of breath): Reportedly her symptoms improved dramatically after admission despite the absence of an aggressive diuresis. Her lung examination seems benign. However , her N terminal proBNP is markedly elevated. She is not appear to have peripheral edema. She is on twice daily dosing of Bumex. It is unclear whether she has affected a good diuresis. It is possible that her eyes and nose are inaccurate. Her weight has not changed. I think she has been receiving a lot of intravenous fluids and given the reduction in her troponin we can likely stop her heparin. This may help affect some form diuresis. At some point will have an opportunity to evaluate her filling pressures in this may guide how aggressive we will be in continuing diuresis. (2) Acute on chronic diastolic (congestive) heart failure: She has a history of congestive heart failure and I believe had acute heart failure on top of her chronic diastolic heart failure. She appears to be very sensitive to fluid and probably does not need to lose a lot of fluid. She does not have edema. (3) Elevated troponin I level: Today's level is down. The rise and fall of her troponin is not consistent with an acute coronary syndrome. This may be more related to myocarditis. Think an evaluation of her coronary disease still reasonable, but that does not appear to be significant urgency. Also, I think discontinuation or heparin is reasonable. Homemaker NPO after midnight. We will evaluate her renal function in the morning and determine if it is a good time for angiography. The primary risk to her would be nephrotoxicity of contrast. (4) LBBB (left bundle branch block): She has a long-standing left bundle branch block, this makes it difficult for us to read her electrocardiogram for localization of myocardial damage. Subjective This afternoon the patient claims to be feeling well. She states she has been sleeping a lot and is quite tired. However, she did not report significant breathing difficulty. She claims to have slept well overnight. She has been minimally ambulatory. She denies any dizziness or lightheadedness. She has not had any symptoms of chest discomfort. She did report an occasional blip which appears to indicate a fleeting palpitation. Physical Exam 2 Vital Signs (Past 24 Hours): Last Vital Signs Temp 36.6 C 10/14/18 15:00 Pulse 72 10/14/18 15:43 Resp 21 10/14/18 15:00 BP 131/62 10/14/18 15:00 Pulse Ox 92 10/14/18 15:00 Physical Exam: She is alert and oriented to person and place. Mood affect appear normal. She seemed answer all questions appropriately. HEENT: Sclerae are anicteric. Pupils are equal and reactive to light and accommodation. Extraocular movements were intact. Neuro: Cranial nerves intact Neck: Examination of the submandibular region did not reveal any significant lymphadenopathy. Carotids are palpable bilaterally and free of bruits on auscultation. There was no evidence of jugular venous distention. The thyroid was not enlarged. Lungs: Lungs are clear to auscultation bilaterally. There are no rales wheezes or rhonchi. She has normal respiratory effort without use of accessory muscles. There is normal pulmonary excursion. Cardiac: The rhythm was regular. S1 and S2 were normal. There are no murmurs on examination. The PMI was not markedly displaced on palpation. Abdomen: The abdomen was soft and nontender. Extremities: Patient has bilateral radial pulses that are equal in intensity. There is no evidence cyanosis or clubbing. There was no evidence of significant peripheral edema bilaterally. Skin: There are no rashes noted on examination today. Results & Data Laboratory Results Abnormal Lab Results 10/13/18 10/13/18 10/14/18 16:41 20:17 06:48 APTT 67.4 H* PTT Ratio 2.6 Creatinine Est Cr Clr Drug Dosing Est GFR ( Amer) Est GFR (Non-Af Amer) POC Glucose 113 H 213 H Troponin I NT-Pro-B Natriuret Pep Random Vancomycin 10/14/18 10/14/18 10/14/18 06:48 06:48 06:48 APTT PTT Ratio Creatinine 1.97 H Est Cr Clr Drug Dosing 16.2 Est GFR ( Amer) 26.0 Est GFR (Non-Af Amer) 22.5 POC Glucose Troponin I 3.190 H* NT-Pro-B Natriuret Pep > 11255 H Random Vancomycin 12.0 10/14/18 10/14/18 07:41 11:26 APTT PTT Ratio Creatinine Est Cr Clr Drug Dosing Est GFR ( Amer) Est GFR (Non-Af Amer) POC Glucose 196 H 240 H Troponin I NT-Pro-B Natriuret Pep Random Vancomycin
[2018-10-14] MEDS: ATORVASTATIN 40 MG TAB PO SCH (20:35)
[2018-10-14] MEDS: LEVOTHYROXINE SODIUM 75 MCG TABLET PO SCH (20:36)
[2018-10-14] MEDS: ROPINIROLE HCL 1 MG TABLET PO SCH (20:40)
[2018-10-14] MEDS ORDERED: SODIUM CHLORIDE 0.9% 500 ML IV SCH (23:00)
[2018-10-15 08:35] LABS: Creatinine Clr Calc Pharmacy 20.6 ml/min; Est GFR (African American) 34.8
[2018-10-15] MEDS: CEROVITE ADV FORMULA TAB PO SCH (08:56)
[2018-10-15] MEDS: POTASSIUM CHLORIDE 20 MEQ TABCR PO SCH ×2 (08:56→19:52)
[2018-10-15] MEDS: ASPIRIN 81 MG ECTAB PO SCH (08:56)
[2018-10-15] MEDS: METOPROLOL TARTRATE 25 MG TAB PO SCH ×3 (08:56→19:52)
[2018-10-15] MEDS: LACTOBACILLUS ACIDOPHILUS (FLORANEX) TAB PO SCH ×4 (08:56→19:51)
[2018-10-15] MEDS: BUMETANIDE 1 MG in SYRINGE 0 ML IV SCH ×2 (08:56→16:54)
[2018-10-15] MEDS: INSULIN ASPART 100 UNITS/ML 3 ML PEN SC SCH ×4 (08:57→21:13)
[2018-10-15] MEDS ORDERED: INSULIN GLARGINE SOLOSTAR 100 UNITS/ML 3 ML PEN SQ SCH (09:00)
--- NOTE | 2018-10-15 09:08 | Hospitalist Progress Note ---
Date of Service October 14, 2018 Assessment & Plan (1) NSTEMI (non-ST elevated myocardial infarction): troponin peaked at 7.5, trending down. still denies chest pain or chest pressure Plan was for cardiac intervention on 10/13, however due to fevers and renal failure, will postpone. Likely on 10/15. continue aspirin and Lipitor (increase to 40mg from 20mg) heparin drip is now on hold. Cardio does not believe this to be ischemic. on metoprolol 25mg TID and observe on monitor had catheterization about 3 years ago prior to TAVR and showed mild disease Echo shows EF down slightly at 50-55% compared to prior EF of 65% there is apical anterior lateral wall hypokinesis (2) Acute on chronic diastolic (congestive) heart failure: Her history of sudden onset shortness of breath is very similar to prior presentations of her diastolic CHF exacerbation. Previous echo in 08/2017 showed EF 60% with mild LVH. CTA chest on 10/10 showed pulmonary edema with small/moderate bilateral pleural [place]. [place] [address]. likely etiology is NSTEMI vs myocarditis EF down compared to prior echo, 50-55% will use Bumex 1mg IV q12 for diuresis strict I/O, daily weight Cr is 1.9 today. (3) Acute respiratory failure with hypoxia: due to pulmonary edema treat with Bumex try to wean oxygen as tolerated (4) COLTEN (acute kidney injury): Creat. romero to 2.1 will monitor. likely due to NSTEMI and aggressive diuresis continue to monitor closely with bumex and possible heart cath tomorrow will place on KCl 20mEq BID since she is ordered the Bumex holding Vasotec in setting of COLTEN (5) CKD (chronic kidney disease) stage 3, GFR 30-59 ml/min: Baseline Cr ~1.2 with a GFR ~40 typically on Bumex 1mg PO daily follow BMP daily (6) Facial rash: Has rash on face from an old cream she used that she had found in her medicine cabinet. ED provider gave her Solu-Medrol 125mg IV for it. patient refused topical Benadryl or further steroids rash improving told her to throw away her cream at home (7) HTN (hypertension): BP stable due to acute MS and tachycardia, trying to titrate upward on Lopressor for that reason, will hold Norvasc and Vasotec may even hold these on discharge if she tolerates the higher doses of Lopressor (8) Diabetes: Last A1c was 6.7% from 12/2017. - Lowered home Lantus to 18 units QAM given lower-calorie, hospital diet - Sliding scale continue Lantus on discharge monitor for hypoglycemia (9) Hypothyroid: No signs of hypo-/hyperthryoidism. Last TSH was 1.6 in 12/2017. 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 No major issues, but notes from cardiology indicate it didn't improve how she felt much, so possibly more of it was pleural effusion -related. - Continua ASA echo shows that TAVR in good position and working well (12) Sjogrens syndrome: Has history of lupus and Sjogren's syndrome. Reports that any medications were not helpful because they had more side effect than benefit. - Continue extensive eye-dryness regimen (13) LBBB (left bundle branch block): chronic (14) DVT prophylaxis: stopped heparin drip. will start heparin subq in AM. Patient is also ambulating with PT. spent 35 minutes in management of patient. Subjective Patient reports feeling better today/ Her daughter is in the room and states that the patient egts cranky when she feels better as she wants to be discharged. Patient reports her breathing has improved. Plan initially was for cardiac cath yesterday, but this was postponed given her fever and renal dysfunction. This may be done tomorrow. Constitutional: + fatigue Respiratory: + dyspnea on exertion Cardiovascular: + dyspnea and + orthopnea; no chest pain and no edema Physical Exam 2 Vital Signs (Past 24 Hours): Last Vital Signs Temp 36.6 C 10/14/18 15:00 Pulse 69 10/14/18 15:00 Resp 21 10/14/18 15:00 BP 131/62 10/14/18 15:00 Pulse Ox 92 10/14/18 15:00 Physical Exam: Constitutional: WD/WN, vitals as above Eyes: PERRL, conjunctivae normal, anicteric sclerae ENMT: external ear and nose normal, oropharynx normal Neck: trachea midline, no thyromegaly Respiratory: normal respiratory effort, lungs clear to auscultation (good airflow in bases of lungs) Auscultation: no rales and no wheezes Cardiovascular: RRR, no murmur, no edema Gastrointestinal (Abdomen): normal bowel sounds, soft, nontender, no hepatosplenomegaly Musculoskeletal: no cyanosis or clubbing, extremities motor strength 5/5 Skin: no rashes, warm and dry Neurologic: patellar DTR's 2+ bilat, sensation intact and PERRL, EOMI, accommodation nl, no face palsy, no dysarthria Psychiatric: A+Ox3, euthymic affect Lymphatic: no cervical or axillary lymphadenopathy
[2018-10-15] MEDS: VANCOMYCIN HCL 1,000 MG in SODIUM CHLORIDE 0.9% 250 ML IV SCH (09:43)
--- NOTE | 2018-10-15 10:11 | Cardiology Progress Note ---
Date of Service October 15, 2018 Assessment & Plan (1) SOB (shortness of breath): She does not complain of dyspnea. Her N terminal proBNP was markedly elevated yesterday. She is still not affected a great diuresis according to the recorded urine output. Her weight is stable. I think at the time of catheterization we should be able to measure her filling pressures and perhaps engage in more aggressive diuresis. She likely will require higher doses of bumetanide. (2) Acute on chronic diastolic (congestive) heart failure: She has a history of congestive heart failure and I believe had acute heart failure on top of her chronic diastolic heart failure. She appears to be very sensitive to fluid and probably does not need to lose a lot of fluid. She does not have edema. (3) Elevated troponin I level: Improved. No symptoms of chest discomfort. 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 Her catheterization in 2016 leading up to her tab her did not reveal any significant coronary disease. Hopefully by tomorrow will have an opportunity to evaluate her coronaries. She was tentatively scheduled for angiography today. However, her renal function still appears slightly compromised. I made the decision to defer her angiography to until tomorrow provided her renal function stays stable. (4) LBBB (left bundle branch block): She has a long-standing left bundle branch block, this makes it difficult for us to read her electrocardiogram for localization of myocardial damage. Subjective This morning the patient reported feeling well. She has not report any specific breathing trouble. She has no symptoms of chest discomfort. She claims to have little appetite over the past few days. She does not recall being very ambulatory and is slightly weak. Physical Exam 2 Vital Signs (Past 24 Hours): Last Vital Signs Temp 36.7 C 10/15/18 07:12 Pulse 83 10/15/18 08:00 Resp 18 10/15/18 07:12 BP 146/63 H 10/15/18 07:12 Pulse Ox 93 10/15/18 07:12 Physical Exam: She is alert and oriented x3. Mood affect appear normal. She answered all questions appropriately. HEENT: Sclerae are anicteric. Pupils are equal and reactive to light and accommodation. Extraocular movements were intact. Neuro: Cranial nerves intact Neck: Examination of the submandibular region did not reveal any significant lymphadenopathy. Carotids are palpable bilaterally and free of bruits on auscultation. There was no evidence of jugular venous distention. The thyroid was not enlarged. Lungs: Some crackles in the bases bilaterally. She has normal respiratory effort without use of accessory muscles. There is normal pulmonary excursion. Cardiac: The rhythm was regular. S1 and S2 were normal. The PMI was not markedly displaced on palpation. Abdomen: The abdomen was soft and nontender. Extremities: Patient has bilateral radial pulses that are equal in intensity. There is no evidence cyanosis or clubbing. There was no evidence of significant peripheral edema bilaterally. Skin: There are no rashes noted on examination today. Results & Data Laboratory Results Abnormal Lab Results 10/14/18 10/14/18 10/14/18 06:48 11:26 16:30 Creatinine Est Cr Clr Drug Dosing Est GFR ( Amer) Est GFR (Non-Af Amer) POC Glucose 240 H 161 H Troponin I 3.190 H* 10/14/18 10/15/18 10/15/18 20:32 07:44 07:49 Creatinine 1.55 H D Est Cr Clr Drug Dosing 20.6 Est GFR ( Amer) 34.8 Est GFR (Non-Af Amer) 30.0 POC Glucose 135 H 124 H Troponin I
--- NOTE | 2018-10-15 10:51 | Infectious Disease Progress Nt ---
Date of Service October 15, 2018 Assessment & Plan (1) Group C streptococcal infection: Patient with group C streptococcal bacteremia, likely this is not a contaminant but true pathogen. Oftentimes this may be seen without identifiable focus, but I am concerned about prior aortic valve surgery. Patient changed to IV ceftriaxone 2 g daily, will need minimum of 14 days of therapy. Will discuss with all involved. Will follow. Subjective Patient seen in follow-up for gram-positive bacteremia. Patient continues to complain of weakness and fatigue. Blood cultures have grown group C streptococcus. Review of Systems All systems reviewed & are unremarkable except as noted in HPI & below Physical Exam 2 Vital Signs (Past 24 Hours): Last Vital Signs Temp 36.7 C 10/15/18 07:12 Pulse 83 10/15/18 08:00 Resp 18 10/15/18 07:12 BP 146/63 H 10/15/18 07:12 Pulse Ox 93 10/15/18 07:12 Constitutional: WD/WN, vitals as above comfortable; no acute distress Eyes: PERRL, conjunctivae normal, anicteric sclerae ENMT: external ear and nose normal, oropharynx normal Neck: trachea midline, no thyromegaly neck nontender Respiratory: normal respiratory effort; no respiratory distress and does not use accessory muscles Auscultation: + rales Cardiovascular: Rate/Rhythm: regular rate and regular rhythm Heart Sounds: normal S1, normal S2 and + murmur (Systolic and diastolic) Gastrointestinal (Abdomen): normal bowel sounds, soft, nontender, no hepatosplenomegaly Musculoskeletal: no cyanosis or clubbing, extremities motor strength 5/5 Spine: thoracic spine normal to inspection and lumbar spine normal to inspection ; no cervical spinal tenderness Skin: no rashes, warm and dry normal turgor; no lesions Neurologic: patellar DTR's 2+ bilat, sensation intact no focal motor deficits Psychiatric: A+Ox3, euthymic affect Orientation: cooperative Lymphatic: no cervical or axillary lymphadenopathy no inguinal lymphadenopathy Results & Data Laboratory Results BMP 10/15/18 07:49 Creatinine 1.55 H D Cardiac Enzymes 10/14/18 Range/Units 06:48 Troponin I 3.190 H* (0-0.045) ng/ml Diagnostic Findings Microbiology 10/12/18 14:52 Blood Blood Culture - Preliminary Group C Beta Strep 10/12/18 15:00 Blood Blood Culture - Preliminary No growth to date. 10/10/18 10:25 Blood Blood Culture - Preliminary No growth to date. 10/10/18 10:20 Blood Blood Culture - Preliminary No growth to date.
[2018-10-15] MEDS: cefTRIAXone SODIUM 2,000 MG in DEXTROSE 5% 50 ML IV SCH (12:12)
--- NOTE | 2018-10-15 13:09 | Pharmacy Report ---
Pharmacy Glycemic Short Note 2 - Date of Service October 15, 2018 - Glycemic Short BSG Results (Last 24 hours): 10/14/18 10/14/18 10/15/18 16:30 20:32 07:44 POC Glucose 161 H 135 H 124 H 10/15/18 11:41 POC Glucose 255 H OUTPATIENT ANTIDIABETIC REGIMEN: * Lantus 22 units SQ QAM * A1c = 6.7 % 10/11/18 ASSESSMENT: 10/15/18 * Ms. Giraldo received 36 units of insulin yesterday * BSGs are much improved with increase in basal insulin; however, patient is now NPO today * Will reduce basal dose just for today, to prevent hypoglycemia w/ NPO status, with resumption of higher dose tomorrow 10/14/18 * Patient received 24 units of insulin yesterday (basically all correctional + basal) while NPO * Diet has been advanced today * Fasting BSG = 196 mg/dL * Based on fasting BSG and requirements yesterday, will increase basal dose by 20%. Hesitant to be too aggressive since higher doses dropped BSGs in the past. 10/13/18 * Ms. Giraldo received 18 units of insulin yesterday, with 15 of this being basal * Minimal/no po intake documented yesterday and she is now NPO for a cardiac cath * Fasting BSG = 172 mg/dL; this is up significantly from yesterday but I'm hesitant to increase until we see a trend, especially since her BSGs were dropping after 18 units of basal. For now, will tighten Novolog parameters to provide more correctional insulin and then add this to basal dose if requirements are high. 10/12/18 * Ann-Marie is a 87 year old T2DM female admitted with SOB. She received 29 units of SQ insulin yesterday. * Fasting BSG is at goal (91 mg/dL) but trending downward, therefore I will decrease basal insulin 16%. * Post prandial BSGs are also trending downward, therefore novolog parameters will be loosened. PLAN FOR INPATIENT GLYCEMIC CONTROL: * Basal insulin - slight reduction today for NPO status * Lantus 15 units today, then 18 units qAM * Bolus insulin - no change * NovoLog per scale ACHS or Q6hrs while NPO * Goal Range: Low 110 mg/dL - High 140 mg/dL * Correction Factor: 25 mg/dL/unit * Nutritional / Prandial insulin per carb ratio of 1 unit per 10 grams CHO consumed PLAN FOR DISCHARGE: * A1c of 6.7% is at goal * Continue home regimen of Lantus 22 units qAM on discharge
[2018-10-15] MEDS: HEPARIN SOD 5,000 UNIT/0.5 ML VIAL SQ SCH ×2 (14:14→21:14)
[2018-10-15] MEDS: ACETAMINOPHEN 325 MG TAB PO PRN (18:59)
[2018-10-15] MEDS: ATORVASTATIN 40 MG TAB PO SCH (19:52)
[2018-10-15] MEDS: LEVOTHYROXINE SODIUM 75 MCG TABLET PO SCH (19:53)
[2018-10-15] MEDS: ROPINIROLE HCL 1 MG TABLET PO SCH (19:53)
--- NOTE | 2018-10-15 23:54 | Hospitalist Progress Note ---
Date of Service October 15, 2018 Assessment & Plan (1) NSTEMI (non-ST elevated myocardial infarction): troponin peaked at 7.5, trending down. still denies chest pain or chest pressure Plan was for cardiac intervention on 10/13, however due to fevers and renal failure, will postpone. Likely on 10/16. continue aspirin and Lipitor (increase to 40mg from 20mg) heparin drip is now on hold. Cardio does not believe this to be ischemic. on metoprolol 25mg TID and observe on monitor had catheterization about 3 years ago prior to TAVR and showed mild disease Echo shows EF down slightly at 50-55% compared to prior EF of 65% there is apical anterior lateral wall hypokinesis Will continue to diurese. (2) Acute on chronic diastolic (congestive) heart failure: Her history of sudden onset shortness of breath is very similar to prior presentations of her diastolic CHF exacerbation. Previous echo in 08/2017 showed EF 60% with mild LVH. CTA chest on 10/10 showed pulmonary edema with small/moderate bilateral pleural [place]. [place] [address]. likely etiology is NSTEMI vs myocarditis EF down compared to prior echo, 50-55% will use Bumex 1mg IV q12 for diuresis strict I/O, daily weight Cr is 1.5 today. (3) Acute respiratory failure with hypoxia: due to pulmonary edema treat with Bumex Now on room air at rest. (4) COLTEN (acute kidney injury): Creat. romero to 2.1 will monitor. likely due to NSTEMI and aggressive diuresis continue to monitor closely with bumex and possible heart cath tomorrow will place on KCl 20mEq BID since she is ordered the Bumex holding Vasotec in setting of COLTEN (5) CKD (chronic kidney disease) stage 3, GFR 30-59 ml/min: Baseline Cr ~1.2 with a GFR ~40 typically on Bumex 1mg PO daily follow BMP daily (6) Facial rash: Has rash on face from an old cream she used that she had found in her medicine cabinet. ED provider gave her Solu-Medrol 125mg IV for it. patient refused topical Benadryl or further steroids rash improving told her to throw away her cream at home (7) HTN (hypertension): BP stable due to acute MO and tachycardia, trying to titrate upward on Lopressor for that reason, will hold Norvasc and Vasotec may even hold these on discharge if she tolerates the higher doses of Lopressor (8) Diabetes: Last A1c was 6.7% from 12/2017. - Lowered home Lantus to 18 units QAM given lower-calorie, hospital diet - Sliding scale continue Lantus on discharge monitor for hypoglycemia (9) Hypothyroid: No signs of hypo-/hyperthryoidism. Last TSH was 1.6 in 12/2017. 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 No major issues, but notes from cardiology indicate it didn't improve how she felt much, so possibly more of it was pleural effusion -related. - Continua ASA echo shows that TAVR in good position and working well (12) Sjogrens syndrome: Has history of lupus and Sjogren's syndrome. Reports that any medications were not helpful because they had more side effect than benefit. - Continue extensive eye-dryness regimen (13) LBBB (left bundle branch block): chronic (14) DVT prophylaxis: Heparin sub q started Patient is also ambulating with PT. spent 25 minutes in management of patient. Subjective Patient reports no significant changes today. Her daughter is in the room and is updated. Patient reports that today she was SOB on exertion. Cardiac intervention again is postponed given her fever and renal dysfunction. This may be done tomorrow. Constitutional: + fatigue Respiratory: + dyspnea on exertion Cardiovascular: + dyspnea and + orthopnea; no chest pain and no edema Physical Exam 2 Vital Signs (Past 24 Hours): Last Vital Signs Temp 36.4 C L 10/15/18 23:45 Pulse 61 10/15/18 23:45 Resp 18 10/15/18 23:45 BP 147/67 H 10/15/18 23:45 Pulse Ox 94 10/15/18 23:45 Physical Exam: Constitutional: WD/WN, vitals as above Eyes: PERRL, conjunctivae normal, anicteric sclerae ENMT: external ear and nose normal, oropharynx normal Neck: trachea midline, no thyromegaly Respiratory: normal respiratory effort, lungs clear to auscultation (good airflow in bases of lungs) Auscultation: no rales and no wheezes Cardiovascular: RRR, no murmur, no edema Gastrointestinal (Abdomen): normal bowel sounds, soft, nontender, no hepatosplenomegaly Musculoskeletal: no cyanosis or clubbing, extremities motor strength 5/5 Skin: no rashes, warm and dry Neurologic: patellar DTR's 2+ bilat, sensation intact and PERRL, EOMI, accommodation nl, no face palsy, no dysarthria Psychiatric: A+Ox3, euthymic affect Lymphatic: no cervical or axillary lymphadenopathy
[2018-10-16] MEDS ORDERED: Nursing to Pharmacy Communication ONE (03:37)
[2018-10-16] MEDS ORDERED: SODIUM CHLORIDE 0.9% 1000ML 1,000 ML IV SCH (04:00)
[2018-10-16] MEDS: INSULIN ASPART 100 UNITS/ML 3 ML PEN SC SCH ×4 (08:13→22:04)
[2018-10-16] MEDS: BUMETANIDE 1 MG in SYRINGE 0 ML IV SCH (08:15)
[2018-10-16] MEDS: LACTOBACILLUS ACIDOPHILUS (FLORANEX) TAB PO SCH ×4 (08:15→22:09)
[2018-10-16] MEDS: METOPROLOL TARTRATE 25 MG TAB PO SCH ×3 (08:15→22:10)
[2018-10-16] MEDS: ASPIRIN 81 MG ECTAB PO SCH (08:15)
[2018-10-16] MEDS: POTASSIUM CHLORIDE 20 MEQ TABCR PO SCH ×2 (08:15→22:10)
[2018-10-16] MEDS: CEROVITE ADV FORMULA TAB PO SCH (08:16)
[2018-10-16] MEDS: cefTRIAXone SODIUM 2,000 MG in DEXTROSE 5% 50 ML IV SCH (08:17)
[2018-10-16] MEDS: HEPARIN SOD 5,000 UNIT/0.5 ML VIAL SQ SCH ×2 (08:19→22:11)
[2018-10-16] MEDS ORDERED: VANCOMYCIN TROUGH ONE (08:30)
[2018-10-16 08:36] LABS: Creatinine Clr Calc Pharmacy 20.5 ml/min; Est GFR (African American) 34.5; Est GFR (Non-African American) 29.8
[2018-10-16] MEDS ORDERED: INSULIN GLARGINE SOLOSTAR 100 UNITS/ML 3 ML PEN SQ SCH (09:00)
--- NOTE | 2018-10-16 11:06 | Pharmacy Report ---
Pharmacy Glycemic Short Note 2 - Date of Service October 16, 2018 - Glycemic Short BSG Results (Last 24 hours): 10/15/18 10/15/18 10/15/18 11:41 16:38 20:28 POC Glucose 255 H 198 H 165 H 10/16/18 10/16/18 07:34 07:39 POC Glucose 143 H 128 H OUTPATIENT ANTIDIABETIC REGIMEN: * Lantus 22 units SQ QAM * A1c = 6.7 % 10/11/18 ASSESSMENT: 10/16/18 * The patient received 26 units of insulin yesterday, with reduce dose of Lantus d/t NPO status for a majority of the day * She is NPO again today so will adjust Lantus to provide a reduced dose again 10/15/18 * Ms. Giraldo received 36 units of insulin yesterday * BSGs are much improved with increase in basal insulin; however, patient is now NPO today * Will reduce basal dose just for today, to prevent hypoglycemia w/ NPO status, with resumption of higher dose tomorrow 10/14/18 * Patient received 24 units of insulin yesterday (basically all correctional + basal) while NPO * Diet has been advanced today * Fasting BSG = 196 mg/dL * Based on fasting BSG and requirements yesterday, will increase basal dose by 20%. Hesitant to be too aggressive since higher doses dropped BSGs in the past. 10/13/18 * Ms. Giraldo received 18 units of insulin yesterday, with 15 of this being basal * Minimal/no po intake documented yesterday and she is now NPO for a cardiac cath * Fasting BSG = 172 mg/dL; this is up significantly from yesterday but I'm hesitant to increase until we see a trend, especially since her BSGs were dropping after 18 units of basal. For now, will tighten Novolog parameters to provide more correctional insulin and then add this to basal dose if requirements are high. 10/12/18 * Ann-Marie is a 87 year old T2DM female admitted with SOB. She received 29 units of SQ insulin yesterday. * Fasting BSG is at goal (91 mg/dL) but trending downward, therefore I will decrease basal insulin 16%. * Post prandial BSGs are also trending downward, therefore novolog parameters will be loosened. PLAN FOR INPATIENT GLYCEMIC CONTROL: * Basal insulin - slight reduction again today for NPO status * Lantus 15 units today, then 18 units qAM starting tomorrow * Bolus insulin - no change * NovoLog per scale ACHS or Q6hrs while NPO * Goal Range: Low 110 mg/dL - High 140 mg/dL * Correction Factor: 25 mg/dL/unit * Nutritional / Prandial insulin per carb ratio of 1 unit per 10 grams CHO consumed PLAN FOR DISCHARGE: * A1c of 6.7% is at goal * Continue home regimen of Lantus 22 units qAM on discharge
[2018-10-16] MEDS ORDERED: fentaNYL citrate 100 MCG/2 ML VIAL ONE (12:21)
[2018-10-16] MEDS ORDERED: NiCARDipine HCL INJ 2.5 MG/ML 10 ML AMP ONE (12:21)
[2018-10-16] MEDS ORDERED: MIDAZOLAM HCL 1 MG/ML 2ML VIAL ONE (12:21)
[2018-10-16] MEDS ORDERED: HEPARIN (PORCINE) 1000 UNIT/ML 10 ML (CATH LAB USE ONLY) ONE (12:21)
[2018-10-16] MEDS ORDERED: NITROGLYCERIN/D5W 100MCG/ML 20ML SYR ONE (12:22)
--- NOTE | 2018-10-16 12:43 | Pre Anesthesia Assessment ---
Date of Service October 16, 2018 Pre Sedation Assessment Vital Signs Temp Pulse Pulse Pulse Resp BP BP 10/16/18 11:24 36.4 C L 76 18 160/95 H 10/16/18 07:08 36.5 C 71 18 155/73 H 10/16/18 03:26 36.5 C 75 20 166/64 H 10/15/18 23:45 36.4 C L 61 18 147/67 H 10/15/18 19:15 36.7 C 86 18 175/61 H 10/15/18 16:00 79 10/15/18 15:00 36.5 C 73 20 125/64 10/15/18 14:23 86 160/76 H Pulse Ox 10/16/18 11:24 93 10/16/18 07:08 93 10/16/18 03:26 94 10/15/18 23:45 94 10/15/18 19:15 93 10/15/18 16:00 10/15/18 15:00 90 10/15/18 14:23 Cardiovascular + regular rate Respiratory + respiratory effort normal Pre-Sedation Airway Assessment Smoking Status: Unknown if ever smoked Hx Sleep Apnea: No Hx Difficult Intubation: No Short, Thick Neck: No Thyromental Distance: > or= 3.5 Finger Breadths Oral Cavity: + WNL Mallampati Class: III ASA: ASA3 Procedure Planning Contraindications for Sedation: none Current Medications Reviewed: Yes Notes The planned sedation has been discussed with the patient. Informed Consent was obtained. I have identified the patient, determined the appropriateness of sedation and have assessed the patient immediately prior to the procedure. All medicine(s) and interventions are by my order.
[2018-10-16] MEDS ORDERED: ACETAMINOPHEN 325 MG TAB PO PRN (13:42)
--- NOTE | 2018-10-16 13:42 | Cardiac Catheterization ---
Cardiac Cath Procedure: Brief Procedure Date October 16, 2018 Pre-Procedure Diagnosis Pre-Procedure Diagnosis: Non STEMI AUC Score AUC Score: 8 Post-Procedure Diagnosis Post-Procedure Diagnosis: Mild CAD Procedure(s) Performed Procedure(s) Performed: Coronary Angiography and Left Heart Cath Cell Phone Repair Technician Musa Mejía MD Estimated Blood Loss Estimated Blood Loss: 10cc Medication(s) Medication(s): Fentanyl, Heparin, Nicardipine, Nitroglycerin and Versed Preliminary Findings 8 Recommendations Recommendations: Medical Therapy and/or Counseling Specimens Specimens: None Procedural Complication(s) None Disposition PCU
--- NOTE | 2018-10-16 16:27 | Cardiology Progress Note ---
Date of Service October 16, 2018 Assessment & Plan (1) SOB (shortness of breath): Her shortness of breath seems to have resolved. Despite a markedly elevated N terminal proBNP, her left ventricular end-diastolic pressure on direct examination today was only mildly elevated. I think we can reduce her diuretic regimen to oral Bumex. I think 0.5 milligrams every morning would be a reasonable dose. (2) Acute on chronic diastolic (congestive) heart failure: This may be related both to hypertension as well as valvular heart disease. I think Re initiating her amlodipine would be worthwhile. We can keep her on a slightly higher dose of a diuretic. Her benazepril has been discontinued he has her renal function was abnormal recently. (3) Elevated troponin I level: No evidence of acute coronary syndrome. Perhaps related decompensation, hypertension or even an element of demand ischemia. She can continue on a daily aspirin. (4) LBBB (left bundle branch block): She has a long-standing left bundle branch block, this makes it difficult for us to read her electrocardiogram for localization of myocardial damage. (5) S/P TAVR (transcatheter aortic valve replacement): Her pulse pressure was notably high during her catheterization today. She is known to have an element of insufficiency, last documented in August 2017. I think would be worth reimaging the function of her aortic valve to see if there is more insufficiency, perhaps even contributing to her recent hospitalization. I will order echocardiogram for tomorrow. Subjective This morning the patient claims to be feeling well. She denies any significant breathing trouble. She has not had symptoms of chest discomfort. She has not ambulated much and overall feels weak. Physical Exam 2 Vital Signs (Past 24 Hours): Last Vital Signs Temp 36.4 C L 10/16/18 11:24 Pulse 76 10/16/18 11:24 Resp 18 10/16/18 11:24 BP 160/95 H 10/16/18 11:24 Pulse Ox 93 10/16/18 11:24 Physical Exam: She is alert and oriented x3. Mood affect appear normal. She answered all questions appropriately. HEENT: Sclerae are anicteric. Pupils are equal and reactive to light and accommodation. Extraocular movements were intact. Neuro: Cranial nerves intact Neck: Examination of the submandibular region did not reveal any significant lymphadenopathy. Carotids are palpable bilaterally and free of bruits on auscultation. There was no evidence of jugular venous distention. The thyroid was not enlarged. Lungs: Some crackles at the bases and coarse upper airway sounds. Cardiac: The rhythm was regular. S1 and S2 were normal. Crescendo de crescendo systolic murmur. The PMI was not markedly displaced on palpation. Abdomen: The abdomen was soft and nontender. Extremities: Patient has bilateral radial pulses that are equal in intensity. There is no evidence cyanosis or clubbing. There was no evidence of significant peripheral edema bilaterally. Skin: There are no rashes noted on examination today. Results & Data Laboratory Results Abnormal Lab Results 10/15/18 10/15/18 10/16/18 16:38 20:28 07:34 Creatinine Est Cr Clr Drug Dosing Est GFR ( Amer) Est GFR (Non-Af Amer) POC Glucose 198 H 165 H 143 H 10/16/18 10/16/18 10/16/18 07:37 07:39 11:41 Creatinine 1.56 H Est Cr Clr Drug Dosing 20.5 Est GFR ( Amer) 34.5 Est GFR (Non-Af Amer) 29.8 POC Glucose 128 H 152 H Diagnostic Findings Cardiac catheterization performed today revealed some stenosis of a 1st OM branch of the circumflex artery. However, this vessel is relatively small. No evidence of acute coronary syndrome. Left ventricular end-diastolic pressure was 16
[2018-10-16] MEDS: AMLODIPINE BESYLATE 5 MG TAB PO SCH (17:32)
[2018-10-16] MEDS: SODIUM CHLORIDE 0.9% 1000ML 1,000 ML IV SCH (20:04)
--- NOTE | 2018-10-16 20:47 | Cardiac Catheterization ---
Date of Service October 16, 2018 Cardiac Cath Report Cardiac Cath Report Procedure performed: Cardiac catheterization, coronary angiography, left heart catheterization Staff photographic process attendant: Musa Mejía MD Indication: The patient is an 87-year-old woman with a history of percutaneous aortic valve replacement. She presented to the hospital with congestive heart failure and elevated cardiac biomarkers. Procedure in detail: The patient was informed of the risks benefits and alternatives to the intended procedure, she understood such and wished to proceed. He was taken to the cardiac catheterization suite in a fasting state. Conscious sedation was administered per protocol and the patient was monitored electrocardiographically throughout today's procedure. The right wrist area was prepped and draped in usual sterile fashion. This area was anesthetized using subcutaneous administration of a lidocaine solution. The right radial artery was then accessed using Seldinger technique, and a arterial sheath was placed at this site over a guidewire. The sheath was used to facilitate passage of the cardiac catheter for coronary angiography and left heart catheterization. Coronary angiogram was then obtained in multiple orthogonal views prior to removal of the catheter. At the conclusion of the procedure the sheath was removed and hemostasis was achieved at the access site using manual pressure. The patient tolerated procedure well, there were no immediate complications. Equipment used: 5 Frisian tiger 4, 5 Frisian angled pigtail Findings: Opening aortic pressure: 153/37 mm of mercury Closing aortic pressure 141/47 mm of mercury Left ventricular pressure: 176/6 mm of mercury Left ventricular end-diastolic pressure 14 mm of mercury Coronary angiography: Left main coronary artery had a complex division at its terminus where it formed a large circumflex, 1st diagonal and LAD. There is no disease in the left main coronary artery Left anterior descending: Left anterior descending artery was a large transapical vessel. It produced a l small to medium-sized 1st diagonal branch which had a 70% ostial stenosis. There was a 2nd diagonal branch which was smaller in caliber. No obstructive lesions in the remainder of the vessel Left circumflex: Left circumflex vessel was a large dominant vessel. It produced of very large 1st OM branch and a large ongoing AV groove vessel which produced a left-sided PDA. 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
[2018-10-16] MEDS: LEVOTHYROXINE SODIUM 75 MCG TABLET PO SCH (22:09)
[2018-10-16] MEDS: ATORVASTATIN 40 MG TAB PO SCH (22:10)
[2018-10-16] MEDS: ROPINIROLE HCL 1 MG TABLET PO SCH (22:10)
--- NOTE | 2018-10-16 22:56 | Hospitalist Progress Note ---
Date of Service October 16, 2018 Assessment & Plan (1) NSTEMI (non-ST elevated myocardial infarction): troponin peaked at 7.5, trending down. still denies chest pain or chest pressure Plan was for cardiac intervention on 10/13, however due to fevers and renal failure, will postpone. Had cardiac cath on 10/16 continue aspirin and Lipitor (increase to 40mg from 20mg) heparin drip is now on hold. Cardio does not believe this to be ischemic. on metoprolol 25mg TID and observe on monitor had catheterization about 3 years ago prior to TAVR and showed mild disease Echo shows EF down slightly at 50-55% compared to prior EF of 65% there is apical anterior lateral wall hypokinesis (2) Acute on chronic diastolic (congestive) heart failure: Her shortness of breath has improved significantly. Appreciate cardio input: will decrease bumex to .5mg daily EF down compared to prior echo, 50-55% strict I/O, daily weight Cr is 1.56 today. (3) Acute respiratory failure with hypoxia: due to pulmonary edema treat with Bumex on room air. (4) COLTEN (acute kidney injury): Appears resolved. likely due to NSTEMI and aggressive diuresis continue to monitor closely with bumex and possible heart cath tomorrow will place on KCl 20mEq BID since she is ordered the Bumex holding Vasotec in setting of COLTEN (5) CKD (chronic kidney disease) stage 3, GFR 30-59 ml/min: Baseline Cr ~1.2 with a GFR ~40 typically on Bumex 1mg PO daily follow BMP daily (6) Facial rash: Has rash on face from an old cream she used that she had found in her medicine cabinet. ED provider gave her Solu-Medrol 125mg IV for it. patient refused topical Benadryl or further steroids rash improving told her to throw away her cream at home (7) HTN (hypertension): BP stable due to acute [place] and tachycardia, trying to titrate upward on Lopressor for that reason, will hold Norvasc and Vasotec may even hold these on discharge if she tolerates the higher doses of Lopressor (8) Diabetes: Last A1c was 6.7% from 12/2017. - Lowered home Lantus to 18 units QAM given lower-calorie, hospital diet - Sliding scale continue Lantus on discharge monitor for hypoglycemia (9) Hypothyroid: No signs of hypo-/hyperthryoidism. Last TSH was 1.6 in 12/2017. 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 No major issues, but notes from cardiology indicate it didn't improve how she felt much, so possibly more of it was pleural effusion -related. - Continua ASA echo shows that TAVR in good position and working well (12) Sjogrens syndrome: Has history of lupus and Sjogren's syndrome. Reports that any medications were not helpful because they had more side effect than benefit. - Continue extensive eye-dryness regimen (13) LBBB (left bundle branch block): chronic (14) DVT prophylaxis: stopped heparin drip. on heparin sub q Patient is also ambulating with PT. spent 25 minutes in management of patient. Subjective Discussed case with Cardio. Appears she is good from cardio standpoint. D/W patient she states that she has not been that active. She remains on room air. She feels less short of breath but just feels weak. Constitutional: + fatigue Respiratory: + dyspnea on exertion Cardiovascular: + dyspnea and + orthopnea; no chest pain and no edema Physical Exam 2 Vital Signs (Past 24 Hours): Last Vital Signs Temp 36.7 C 10/16/18 20:00 Pulse 81 10/16/18 20:00 Resp 18 10/16/18 20:00 BP 128/67 10/16/18 20:00 Pulse Ox 95 10/16/18 20:00 Physical Exam: Constitutional: WD/WN, vitals as above Eyes: PERRL, conjunctivae normal, anicteric sclerae ENMT: external ear and nose normal, oropharynx normal Neck: trachea midline, no thyromegaly Respiratory: normal respiratory effort, lungs clear to auscultation (good airflow in bases of lungs) Auscultation: no rales and no wheezes Cardiovascular: RRR, no murmur, no edema Gastrointestinal (Abdomen): normal bowel sounds, soft, nontender, no hepatosplenomegaly Musculoskeletal: no cyanosis or clubbing, extremities motor strength 5/5 Skin: no rashes, warm and dry Neurologic: patellar DTR's 2+ bilat, sensation intact and PERRL, EOMI, accommodation nl, no face palsy, no dysarthria Psychiatric: A+Ox3, euthymic affect Lymphatic: no cervical or axillary lymphadenopathy
[2018-10-17] MEDS: HEPARIN SOD 5,000 UNIT/0.5 ML VIAL SQ SCH ×3 (05:50→21:53)
[2018-10-17 06:55] LABS: Creatinine Clr Calc Pharmacy 23.1 ml/min; Est GFR (Non-African American) 34.5
[2018-10-17] MEDS: ASPIRIN 81 MG ECTAB PO SCH (08:06)
[2018-10-17] MEDS: LACTOBACILLUS ACIDOPHILUS (FLORANEX) TAB PO SCH ×4 (08:06→20:12)
[2018-10-17] MEDS: METOPROLOL TARTRATE 25 MG TAB PO SCH ×2 (08:07→20:13)
[2018-10-17] MEDS: POTASSIUM CHLORIDE 20 MEQ TABCR PO SCH ×2 (08:07→20:12)
[2018-10-17] MEDS: CEROVITE ADV FORMULA TAB PO SCH (08:07)
[2018-10-17] MEDS: AMLODIPINE BESYLATE 5 MG TAB PO SCH (08:08)
[2018-10-17] MEDS: INSULIN ASPART 100 UNITS/ML 3 ML PEN SC SCH ×4 (08:10→21:53)
[2018-10-17] MEDS: INSULIN GLARGINE SOLOSTAR 100 UNITS/ML 3 ML PEN SQ SCH (08:10)
[2018-10-17] MEDS: cefTRIAXone SODIUM 2,000 MG in DEXTROSE 5% 50 ML IV SCH (08:35)
[2018-10-17] MEDS ORDERED: BUMETANIDE 1 MG TAB PO SCH (09:00)
[2018-10-17] MEDS: SODIUM CHLORIDE 0.9% 1000ML 1,000 ML IV SCH (15:27)
[2018-10-17] MEDS: LEVOTHYROXINE SODIUM 75 MCG TABLET PO SCH (20:12)
[2018-10-17] MEDS: ATORVASTATIN 40 MG TAB PO SCH (20:12)
[2018-10-17] MEDS: ACETAMINOPHEN 325 MG TAB PO PRN (20:13)
[2018-10-17] MEDS: ROPINIROLE HCL 1 MG TABLET PO SCH (20:13)
[2018-10-18] MEDS: HEPARIN SOD 5,000 UNIT/0.5 ML VIAL SQ SCH ×3 (06:27→20:50)
[2018-10-18] MEDS: INSULIN ASPART 100 UNITS/ML 3 ML PEN SC SCH ×4 (08:34→22:29)
[2018-10-18] MEDS: POTASSIUM CHLORIDE 20 MEQ TABCR PO SCH ×2 (08:46→20:49)
[2018-10-18] MEDS: ASPIRIN 81 MG ECTAB PO SCH (08:47)
[2018-10-18] MEDS: LACTOBACILLUS ACIDOPHILUS (FLORANEX) TAB PO SCH ×4 (08:47→20:49)
[2018-10-18] MEDS: AMLODIPINE BESYLATE 5 MG TAB PO SCH (08:47)
[2018-10-18] MEDS: CEROVITE ADV FORMULA TAB PO SCH (08:48)
[2018-10-18] MEDS: METOPROLOL TARTRATE 25 MG TAB PO SCH ×2 (08:48→20:49)
[2018-10-18] MEDS: INSULIN GLARGINE SOLOSTAR 100 UNITS/ML 3 ML PEN SQ SCH (08:49)
[2018-10-18] MEDS ORDERED: BUMETANIDE 1 MG TAB PO SCH (09:00)
--- NOTE | 2018-10-18 10:11 | Pharmacy Report ---
Pharmacy Glycemic Short Note 2 - Date of Service October 18, 2018 - Glycemic Short BSG Results (Last 24 hours): 10/17/18 10/17/18 10/17/18 11:41 16:29 20:45 POC Glucose 238 H 74 143 H 10/18/18 07:27 POC Glucose 90 OUTPATIENT ANTIDIABETIC REGIMEN: * Lantus 22 units SQ QAM * A1c = 6.7 % 10/11/18 ASSESSMENT: 10/18/18 * Patients blood sugars acceptable over past 48 hours, no changes required. 10/16/18 * The patient received 26 units of insulin yesterday, with reduce dose of Lantus d/t NPO status for a majority of the day * She is NPO again today so will adjust Lantus to provide a reduced dose again 10/15/18 * Ms. Giraldo received 36 units of insulin yesterday * BSGs are much improved with increase in basal insulin; however, patient is now NPO today * Will reduce basal dose just for today, to prevent hypoglycemia w/ NPO status, with resumption of higher dose tomorrow 10/14/18 * Patient received 24 units of insulin yesterday (basically all correctional + basal) while NPO * Diet has been advanced today * Fasting BSG = 196 mg/dL * Based on fasting BSG and requirements yesterday, will increase basal dose by 20%. Hesitant to be too aggressive since higher doses dropped BSGs in the past. 10/13/18 * Ms. Giraldo received 18 units of insulin yesterday, with 15 of this being basal * Minimal/no po intake documented yesterday and she is now NPO for a cardiac cath * Fasting BSG = 172 mg/dL; this is up significantly from yesterday but I'm hesitant to increase until we see a trend, especially since her BSGs were dropping after 18 units of basal. For now, will tighten Novolog parameters to provide more correctional insulin and then add this to basal dose if requirements are high. 10/12/18 * Ann-Marie is a 87 year old T2DM female admitted with SOB. She received 29 units of SQ insulin yesterday. * Fasting BSG is at goal (91 mg/dL) but trending downward, therefore I will decrease basal insulin 16%. * Post prandial BSGs are also trending downward, therefore novolog parameters will be loosened. PLAN FOR INPATIENT GLYCEMIC CONTROL: * Basal insulin * Lantus 18 units SQ daily * Bolus insulin * NovoLog per scale ACHS or Q6hrs while NPO * Goal Range: Low 110 mg/dL - High 140 mg/dL * Correction Factor: 25 mg/dL/unit * Nutritional / Prandial insulin per carb ratio of 1 unit per 10 grams CHO consumed PLAN FOR DISCHARGE: * A1c of 6.7% is at goal * Continue home regimen of Lantus 22 units qAM on discharge
[2018-10-18] MEDS: cefTRIAXone SODIUM 2,000 MG in DEXTROSE 5% 50 ML IV SCH (10:19)
--- NOTE | 2018-10-18 16:00 | Hospitalist Progress Note ---
Date of Service October 17, 2018 Assessment & Plan (1) NSTEMI (non-ST elevated myocardial infarction): troponin peaked at 7.5, trending down. still denies chest pain or chest pressure Plan was for cardiac intervention on 10/13, however due to fevers and renal failure, will postpone. Had cardiac cath on 10/16 continue aspirin and Lipitor (increase to 40mg from 20mg) heparin drip is now on hold. Cardio does not believe this to be ischemic. on metoprolol 25mg TID and observe on monitor had catheterization about 3 years ago prior to TAVR and showed mild disease Echo shows EF down slightly at 50-55% compared to prior EF of 65% there is apical anterior lateral wall hypokinesis Cardiac cath on 10/16 showed only mild CAD. (2) Acute on chronic diastolic (congestive) heart failure: Her shortness of breath has improved significantly. Appreciate cardio input: Mariana Bumex is 2mg PO daily will decrease bumex to .5mg daily at home EF down compared to prior echo, 50-55% strict I/O, daily weight Cr is 1.56 today. (3) Acute respiratory failure with hypoxia: due to pulmonary edema treat with Bumex on room air. (4) COLTEN (acute kidney injury): Appears resolved. likely due to NSTEMI and aggressive diuresis continue to monitor closely with bumex and possible heart cath tomorrow will place on KCl 20mEq BID since she is ordered the Bumex holding Vasotec in setting of COLTEN (5) CKD (chronic kidney disease) stage 3, GFR 30-59 ml/min: Baseline Cr ~1.2 with a GFR ~40 typically on Bumex 1mg PO daily follow BMP daily (6) Facial rash: Has rash on face from an old cream she used that she had found in her medicine cabinet. ED provider gave her Solu-Medrol 125mg IV for it. patient refused topical Benadryl or further steroids rash improving told her to throw away her cream at home (7) HTN (hypertension): BP stable due to acute [place] and tachycardia, trying to titrate upward on Lopressor for that reason, will hold Norvasc and Vasotec may even hold these on discharge if she tolerates the higher doses of Lopressor (8) Diabetes: Last A1c was 6.7% from 12/2017. - Lowered home Lantus to 18 units QAM given lower-calorie, hospital diet - Sliding scale continue Lantus on discharge monitor for hypoglycemia (9) Hypothyroid: No signs of hypo-/hyperthryoidism. Last TSH was 1.6 in 12/2017. 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 No major issues, but notes from cardiology indicate it didn't improve how she felt much, so possibly more of it was pleural effusion -related. - Continua ASA echo shows that TAVR in good position and working well (12) Sjogrens syndrome: Has history of lupus and Sjogren's syndrome. Reports that any medications were not helpful because they had more side effect than benefit. - Continue extensive eye-dryness regimen (13) LBBB (left bundle branch block): chronic (14) DVT prophylaxis: stopped heparin drip. on heparin sub q Patient is also ambulating with PT. spent 25 minutes in management of patient. Patient is pending placement. Subjective Patient reports feeling much better. Patient reports her only concern is that she is weak. She states though that she is breathing better. Constitutional: + fatigue Respiratory: + dyspnea on exertion Cardiovascular: + dyspnea and + orthopnea; no chest pain and no edema Physical Exam 2 Vital Signs (Past 24 Hours): Last Vital Signs Temp 36.3 C L 10/17/18 15:33 Pulse 69 10/17/18 15:33 Resp 16 10/17/18 15:33 BP 112/87 10/17/18 15:33 Pulse Ox 94 10/17/18 15:33 Physical Exam: Constitutional: WD/WN, vitals as above Eyes: PERRL, conjunctivae normal, anicteric sclerae ENMT: external ear and nose normal, oropharynx normal Neck: trachea midline, no thyromegaly Respiratory: normal respiratory effort, lungs clear to auscultation (good airflow in bases of lungs) Auscultation: no rales and no wheezes Cardiovascular: RRR, no murmur, no edema Gastrointestinal (Abdomen): normal bowel sounds, soft, nontender, no hepatosplenomegaly Musculoskeletal: no cyanosis or clubbing, extremities motor strength 5/5 Skin: no rashes, warm and dry Neurologic: patellar DTR's 2+ bilat, sensation intact and PERRL, EOMI, accommodation nl, no face palsy, no dysarthria Psychiatric: A+Ox3, euthymic affect Lymphatic: no cervical or axillary lymphadenopathy
--- NOTE | 2018-10-18 16:11 | Hospitalist Progress Note ---
Date of Service October 18, 2018 Assessment & Plan (1) NSTEMI (non-ST elevated myocardial infarction): troponin peaked at 7.5, trending down. still denies chest pain or chest pressure Plan was for cardiac intervention on 10/13, however due to fevers and renal failure, will postpone. Had cardiac cath on 10/16 continue aspirin and Lipitor (increase to 40mg from 20mg) heparin drip is now on hold. Cardio does not believe this to be ischemic. on metoprolol 25mg TID and observe on monitor had catheterization about 3 years ago prior to TAVR and showed mild disease Echo shows EF down slightly at 50-55% compared to prior EF of 65% there is apical anterior lateral wall hypokinesis Cardiac cath on 10/16 showed only mild CAD. (2) Acute on chronic diastolic (congestive) heart failure: Her shortness of breath has improved significantly. Appreciate cardio input: Mariana Bumex is 2mg PO daily will decrease bumex to .5mg daily at home EF down compared to prior echo, 50-55% strict I/O, daily weight Cr is 1.38 today. (3) Acute respiratory failure with hypoxia: due to pulmonary edema treat with Bumex on room air. (4) COLTEN (acute kidney injury): Appears resolved. likely due to NSTEMI and aggressive diuresis continue to monitor closely with bumex and possible heart cath tomorrow will place on KCl 20mEq BID since she is ordered the Bumex holding Vasotec in setting of COLTEN (5) CKD (chronic kidney disease) stage 3, GFR 30-59 ml/min: Baseline Cr ~1.2 with a GFR ~40 typically on Bumex 1mg PO daily currently on bumex .5mg. follow BMP daily (6) Facial rash: Has rash on face from an old cream she used that she had found in her medicine cabinet. ED provider gave her Solu-Medrol 125mg IV for it. patient refused topical Benadryl or further steroids rash improving told her to throw away her cream at home (7) HTN (hypertension): BP stable due to acute [place] and tachycardia, trying to titrate upward on Lopressor for that reason, will hold Norvasc and Vasotec may even hold these on discharge if she tolerates the higher doses of Lopressor (8) Diabetes: Last A1c was 6.7% from 12/2017. - Lowered home Lantus to 18 units QAM given lower-calorie, hospital diet - Sliding scale continue Lantus on discharge monitor for hypoglycemia (9) Hypothyroid: No signs of hypo-/hyperthryoidism. Last TSH was 1.6 in 12/2017. 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 No major issues, but notes from cardiology indicate it didn't improve how she felt much, so possibly more of it was pleural effusion -related. - Continua ASA echo shows that TAVR in good position and working well (12) Sjogrens syndrome: Has history of lupus and Sjogren's syndrome. Reports that any medications were not helpful because they had more side effect than benefit. - Continue extensive eye-dryness regimen (13) LBBB (left bundle branch block): chronic (14) DVT prophylaxis: stopped heparin drip. on heparin sub q Patient is also ambulating with PT. spent 25 minutes in management of patient. Patient is pending placement. Either Saturday or Saturday. Subjective Daughter is at bedisde and updated. Patient reports feeling better today. She still feels having generalized weakness. Constitutional: + fatigue Respiratory: + dyspnea on exertion Cardiovascular: + dyspnea and + orthopnea; no chest pain and no edema Physical Exam 2 Vital Signs (Past 24 Hours): Last Vital Signs Temp 36.3 C L 10/18/18 15:47 Pulse 70 10/18/18 15:47 Resp 20 10/18/18 15:47 BP 158/65 H 10/18/18 15:47 Pulse Ox 93 10/18/18 15:47 Physical Exam: Constitutional: WD/WN, vitals as above Eyes: PERRL, conjunctivae normal, anicteric sclerae ENMT: external ear and nose normal, oropharynx normal Neck: trachea midline, no thyromegaly Respiratory: normal respiratory effort, lungs clear to auscultation (good airflow in bases of lungs) Auscultation: no rales and no wheezes Cardiovascular: RRR, no murmur, no edema Gastrointestinal (Abdomen): normal bowel sounds, soft, nontender, no hepatosplenomegaly Musculoskeletal: no cyanosis or clubbing, extremities motor strength 5/5 Skin: no rashes, warm and dry Neurologic: patellar DTR's 2+ bilat, sensation intact and PERRL, EOMI, accommodation nl, no face palsy, no dysarthria Psychiatric: A+Ox3, euthymic affect Lymphatic: no cervical or axillary lymphadenopathy
[2018-10-18] MEDS: ATORVASTATIN 40 MG TAB PO SCH (20:49)
[2018-10-18] MEDS: ROPINIROLE HCL 1 MG TABLET PO SCH (20:50)
[2018-10-18] MEDS: LEVOTHYROXINE SODIUM 75 MCG TABLET PO SCH (20:50)
[2018-10-19] MEDS: HEPARIN SOD 5,000 UNIT/0.5 ML VIAL SQ SCH ×3 (06:26→20:38)
[2018-10-19 07:28] LABS: BUN Creatinine Ratio 19.5 (10-20); Calcium 8.3 mg/dl (8.5-10.1); Creatinine Clr Calc Pharmacy 24.6 ml/min; Est GFR (Non-African American) 37.1; Potassium 4.4 mmol/L (3.5-5.1)
[2018-10-19] MEDS: LACTOBACILLUS ACIDOPHILUS (FLORANEX) TAB PO SCH ×4 (08:20→20:36)
[2018-10-19] MEDS: BUMETANIDE 1 MG TAB PO SCH (08:21)
[2018-10-19] MEDS: AMLODIPINE BESYLATE 5 MG TAB PO SCH (08:22)
[2018-10-19] MEDS: POTASSIUM CHLORIDE 20 MEQ TABCR PO SCH ×2 (08:22→20:36)
[2018-10-19] MEDS: ASPIRIN 81 MG ECTAB PO SCH (08:22)
[2018-10-19] MEDS: CEROVITE ADV FORMULA TAB PO SCH (08:23)
[2018-10-19] MEDS: METOPROLOL TARTRATE 25 MG TAB PO SCH ×2 (08:23→20:37)
[2018-10-19] MEDS: INSULIN GLARGINE SOLOSTAR 100 UNITS/ML 3 ML PEN SQ SCH (08:24)
[2018-10-19] MEDS: INSULIN ASPART 100 UNITS/ML 3 ML PEN SC SCH ×4 (08:25→20:38)
[2018-10-19] MEDS: cefTRIAXone SODIUM 2,000 MG in DEXTROSE 5% 50 ML IV SCH (08:42)
[2018-10-19] MEDS: ATORVASTATIN 40 MG TAB PO SCH (20:37)
[2018-10-19] MEDS: LEVOTHYROXINE SODIUM 75 MCG TABLET PO SCH (20:37)
[2018-10-19] MEDS: ROPINIROLE HCL 1 MG TABLET PO SCH (20:37)
--- NOTE | 2018-10-19 23:42 | Hospitalist Progress Note ---
Date of Service October 19, 2018 Assessment & Plan (1) NSTEMI (non-ST elevated myocardial infarction): troponin peaked at 7.5, trending down. still denies chest pain or chest pressure Plan was for cardiac intervention on 10/13, however due to fevers and renal failure, will postpone. Had cardiac cath on 10/16 continue aspirin and Lipitor (increase to 40mg from 20mg) heparin drip is now on hold. Cardio does not believe this to be ischemic. on metoprolol 25mg TID and observe on monitor had catheterization about 3 years ago prior to TAVR and showed mild disease Echo shows EF down slightly at 50-55% compared to prior EF of 65% there is apical anterior lateral wall hypokinesis Cardiac cath on 10/16 showed only mild CAD. (2) Acute on chronic diastolic (congestive) heart failure: Her shortness of breath has improved significantly. Appreciate cardio input: Initially during hospital stay Bumex is 2mg PO daily on bumex to .5mg daily at home; may consider resuming 1mg at discharge. However patient appears back to baseline EF down compared to prior echo, 50-55% strict I/O, daily weight Cr is 1.3 today. (3) Acute respiratory failure with hypoxia: due to pulmonary edema treat with Bumex on room air. (4) COLTEN (acute kidney injury): Appears resolved. likely due to NSTEMI and aggressive diuresis continue to monitor closely with bumex and possible heart cath tomorrow will stop potasium in AM. holding Vasotec in setting of COLTEN (5) CKD (chronic kidney disease) stage 3, GFR 30-59 ml/min: Baseline Cr ~1.2 with a GFR ~40 typically on Bumex 1mg PO daily Currently on .5mg of bumex. follow BMP daily (6) Facial rash: Has rash on face from an old cream she used that she had found in her medicine cabinet. ED provider gave her Solu-Medrol 125mg IV for it. patient refused topical Benadryl or further steroids rash improving told her to throw away her cream at home (7) HTN (hypertension): BP stable due to acute [place] and tachycardia, trying to titrate upward on Lopressor for that reason, will hold Norvasc and Vasotec may even hold these on discharge if she tolerates the higher doses of Lopressor (8) Diabetes: Last A1c was 6.7% from 12/2017. - Lowered home Lantus to 18 units QAM given lower-calorie, hospital diet - Sliding scale continue Lantus on discharge monitor for hypoglycemia (9) Hypothyroid: No signs of hypo-/hyperthryoidism. Last TSH was 1.6 in 12/2017. 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 No major issues, but notes from cardiology indicate it didn't improve how she felt much, so possibly more of it was pleural effusion -related. - Continua ASA echo shows that TAVR in good position and working well (12) Sjogrens syndrome: Has history of lupus and Sjogren's syndrome. Reports that any medications were not helpful because they had more side effect than benefit. - Continue extensive eye-dryness regimen (13) LBBB (left bundle branch block): chronic (14) DVT prophylaxis: stopped heparin drip. on heparin sub q Patient is also ambulating with PT. spent 25 minutes in management of patient. Patient is pending placement. Likely Saturday. Subjective Daughter is at bedside and updated. Patient reports feeling better today. Patient states today is the best day she has had. Constitutional: + fatigue Respiratory: + dyspnea on exertion Cardiovascular: + dyspnea and + orthopnea; no chest pain and no edema Physical Exam 2 Vital Signs (Past 24 Hours): Last Vital Signs Temp 36.4 C L 10/19/18 23:38 Pulse 56 L 10/19/18 23:38 Resp 16 10/19/18 23:38 BP 135/55 L 10/19/18 23:38 Pulse Ox 94 10/19/18 23:38 Physical Exam: Constitutional: WD/WN, vitals as above Eyes: PERRL, conjunctivae normal, anicteric sclerae ENMT: external ear and nose normal, oropharynx normal Neck: trachea midline, no thyromegaly Respiratory: normal respiratory effort, lungs clear to auscultation (good airflow in bases of lungs) Auscultation: no rales and no wheezes Cardiovascular: RRR, no murmur, no edema Gastrointestinal (Abdomen): normal bowel sounds, soft, nontender, no hepatosplenomegaly Musculoskeletal: no cyanosis or clubbing, extremities motor strength 5/5 Skin: no rashes, warm and dry Neurologic: patellar DTR's 2+ bilat, sensation intact and PERRL, EOMI, accommodation nl, no face palsy, no dysarthria Psychiatric: A+Ox3, euthymic affect Lymphatic: no cervical or axillary lymphadenopathy
[2018-10-20] MEDS: HEPARIN SOD 5,000 UNIT/0.5 ML VIAL SQ SCH ×3 (06:39→21:09)
[2018-10-20 07:27] LABS: Basophils # (auto) 0.02 K/uL (0-0.2); Basophils % (auto) 0.1 %; Eosinophils # (auto) 0.23 K/uL (0-0.5); Eosinophils % (auto) 1.7 %; Hematocrit (blood only) 34.7 % (37-47); Hemoglobin 11.2 g/dL (12.0-16.0); Immature Granulocytes # (auto) 0.22 K/uL (0.00-0.02); Immature Granulocytes % (auto) 1.6 %; Lymphocytes # (auto) 3.83 K/uL (1.2-3.4); Lymphocytes % (auto) 27.8 %; Mean Corpuscular Hgb Conc 32.3 g/dL (32-36); Mean Corpuscular Volume 98.3 fL (80-100); Mean Platelet Volume 11.2 fL (7.4-10.4); Monocytes # (auto) 0.82 K/uL (0.11-0.59); Neutrophils # (auto) 8.65 K/uL (1.4-6.5); Neutrophils % (auto) 62.8 %; Nucleated RBC # (auto) 0.05 K/uL (0-0); Nucleated RBC % (auto) 0.4 %; Platelet Count 422 K/uL (130-400); RDW Coefficient of Variation 16.2 % (11.5-14.5); RDW Standard Deviation 55.9 fL (36.4-46.3); Red Blood Count 3.53 M/uL (4.2-5.4); White Blood Count 13.77 K/uL (4.8-10.8)
[2018-10-20] MEDS: BUMETANIDE 1 MG TAB PO SCH (07:54)
[2018-10-20] MEDS: LACTOBACILLUS ACIDOPHILUS (FLORANEX) TAB PO SCH ×4 (07:55→19:58)
[2018-10-20] MEDS: METOPROLOL TARTRATE 25 MG TAB PO SCH ×2 (07:55→19:59)
[2018-10-20] MEDS: ASPIRIN 81 MG ECTAB PO SCH (07:55)
[2018-10-20] MEDS: CEROVITE ADV FORMULA TAB PO SCH (07:56)
[2018-10-20] MEDS: AMLODIPINE BESYLATE 5 MG TAB PO SCH (07:56)
[2018-10-20] MEDS: INSULIN GLARGINE SOLOSTAR 100 UNITS/ML 3 ML PEN SQ SCH (07:58)
[2018-10-20 08:00] LABS: BUN Creatinine Ratio 18.9 (10-20); Calcium 8.7 mg/dl (8.5-10.1); Creatinine Clr Calc Pharmacy 23.8 ml/min; Est GFR (African American) 41.5; Est GFR (Non-African American) 35.8; Potassium 4.6 mmol/L (3.5-5.1)
[2018-10-20] MEDS: INSULIN ASPART 100 UNITS/ML 3 ML PEN SC SCH ×4 (08:00→21:12)
[2018-10-20] MEDS: cefTRIAXone SODIUM 2,000 MG in DEXTROSE 5% 50 ML IV SCH (08:03)
--- NOTE | 2018-10-20 10:25 | Pharmacy Report ---
Glycemic Control Progress Note - Date of Service October 20, 2018 - Scope Glycemic Pharmacist consulted for glycemic control to write orders per [facility] inpatient glycemic control protocol. - Objective Accuchecks BSG(last 24 hours):: 10/19/18 10/19/18 10/19/18 11:49 16:14 20:11 Glucose POC Glucose 158 H 113 H 124 H 10/20/18 10/20/18 07:12 07:22 Glucose 118 H POC Glucose 121 H HbA1c:: Hemoglobin A1c 6.7 % (4.5-5.6) H 10/11/18 07:25 - Recent Pertinent Medications The patient is currently receiving: * Basal insulin: Lantus 18 units every 24 hours in the morning * Correctional Insulin: Novolog Correction per scale ACHS Goal Range: Low 110 mg/dL - High 140 mg/dL Correction Factor: 25 mg/dL/unit * Prandial insulin: Per carb ratio of 1 unit per 10 grams CHO consumed - Outpatient Anti-Diabetic Meds Lantus 22 units SQ qAM - Assessment & Plan ASSESSMENT: * See progress note from 10/10/18 for more background info, in short: * Pt receiving SQ basal bolus insulin regimen for hyperglycemia secondary to baseline DM (outpatient regimen on hold) and infection (currently on Rocephin) * Patient is currently receiving an average of 25 units of insulin per day * 18 units of basal insulin * 7 units of prandial/correctional insulin * BSGs ranging 94 - 158 mg/dl over the past 24hrs * Changes needed to insulin regimen: * AM Fasting BSG = 121 mg/dl. This is within goal range for patient based on inpatient targets and co-morbidities. Therefore Basal insulin will be continued * Post-prandial BSGs are in range therefore no changes needed to CF/CR. * Total daily dose = 25-30 units. Patient's regimen is currently very basal heavy. However, the patient only takes basal at home and fasting blood sugars are well controlled. Monitor closely. PLAN FOR INPATIENT GLYCEMIC CONTROL: * Continuing Lantus 18 units SQ qAM * Continuing correction factor of 25 mg/dl/unit * Continuing carb ratio of 1 unit per 10 grams CHO consumed * Continuing goal range of Low 110 mg/dL - High 140 mg/dL RECOMMENDATIONS FOR DISCHARGE: * Can continue home regimen as long as patient does not have hypoglycemic events at home. * Please note that the plan above was derived based on current level of insulin resistance and hospital stress. These recommendations are appropriate for inpatient admission only. Plan of care upon discharge will need to be reassessed to avoid potential outpatient hypo/hyperglycemia. Thank you.
[2018-10-20] MEDS: ATORVASTATIN 40 MG TAB PO SCH (19:58)
[2018-10-20] MEDS: ROPINIROLE HCL 1 MG TABLET PO SCH (19:59)
[2018-10-20] MEDS: LEVOTHYROXINE SODIUM 75 MCG TABLET PO SCH (19:59)
--- NOTE | 2018-10-20 20:04 | Family Medicine Progress Note ---
Date of Service October 20, 2018 Assessment & Plan (1) Acute respiratory failure with hypoxia: 1) NSTEMI -had catheterization about 3 years ago prior to TAVR and showed mild disease -troponin peaked at 7.5, trending down. Denies chest pain or chest pressure, SOB , syncope -Cardiac cath on 10/16 showed only mild CAD. -Echo shows EF down slightly at 50-55% compared to prior EF of 65%. There is apical anterior lateral wall hypokinesis -continue aspirin and Lipitor (increase to 40mg from 20mg) -Cardio does not believe this to be ischemic. -cont metoprolol 25mg TID -moved from tele to med/surg 2) Acute on chronic diastolic (congestive) heart failure -Her shortness of breath has improved significantly. Pt appears back to baseline -Initially during hospital stay Bumex is 2mg PO daily. On bumex to 1mg daily at home -Echo as above. EF down compared to prior echo, 50-55% -strict I/O, daily weight -Cr is 1.3 today. 3) COLTEN -Appears resolved. Likely due to NSTEMI and aggressive diuresis -can re-continue Vasotec. Was holding in setting of COLTEN 4) CKD stage 3 -GFR 30-59 ml/min -Baseline Cr ~1.2 with a GFR ~40 -typically on Bumex 1mg PO daily. Currently on .5mg of bumex. -follow BMP daily 5) Diabetes -Last A1c was 6.7% from 12/2017. - Lowered home Lantus to 18 units QAM given lower-calorie, hospital diet. Will continue Lantus on discharge - ISS. Monitor for hypoglycemia 6) Hypothyroid - Last TSH was 1.6 in 12/2017. - Continue home Synthroid 75 mcg 7) S/P TAVR (transcatheter aortic valve replacement) -S/p TAVR in 10/2017. No major issues, but notes from cardiology indicate it didn't improve how she felt much, so possibly more of it was pleural effusion- related. - Continua ASA -Echo as above shows that TAVR in good position and working well 8) Sjogrens syndrome -Pt reports that any medications were not helpful because they had more side effect than benefit. - Continue extensive eye-dryness regimen FULL DVT prophylaxis: heparin sub q Dispo: Replaced By [facility] did not accept pt today. Patient is pending placement. Supervising Physician Co-Signing Physician Notes I personally examined the patient and verified all silverman points of history and exam, discussed case, and agree with decision making with Dr Lassiter. Feeling okay, wants to go to rehab, this was unfortunately denied and appear to peer review, she is willing to go to SNF. Vitals noted, in general she is awake and alert no distress. HEENT normocephalic atraumatic mucous membranes moist. Skin shows no rashes no pallor or icterus. Breathing unlabored no accessory muscle use good effort. Acute on chronic diastolic CHFnow compensated. Continue current care. Bacteremiacontinue Rocephin. Stable for MedSurg pending SNF bed. Subjective 87 y/o F found in bed this AM in NAD. Pt reports no acute overnight events. Tolerating PO intake. No issues voiding. No issues with ambulation. Pt eagerly awaiting rehab placement. Pt has no other acute concerns or complaints at present. Review of Systems All systems reviewed & are unremarkable except as noted in HPI & below Physical Exam 2 Vital Signs (Past 24 Hours): Last Vital Signs Temp 36.3 C L 10/20/18 19:00 Pulse 74 10/20/18 19:00 Resp 18 10/20/18 19:00 BP 149/90 H 10/20/18 19:00 Pulse Ox 96 10/20/18 19:00 Constitutional: WD/WN, vitals as above Eyes: PERRL, conjunctivae normal, anicteric sclerae ENMT: external ear and nose normal, oropharynx normal Respiratory: normal respiratory effort, lungs clear to auscultation Cardiovascular: RRR, no murmur, no edema Gastrointestinal (Abdomen): normal bowel sounds, soft, nontender, no hepatosplenomegaly Skin: no rashes, warm and dry Psychiatric: A+Ox3, euthymic affect Results & Data Laboratory Results Laboratory Results - last 24 hr 10/19/18 10/20/18 10/20/18 20:11 07:12 07:12 WBC 13.77 H RBC 3.53 L Hgb 11.2 L Hct 34.7 L MCV 98.3 MCH 31.7 MCHC 32.3 RDW Std Deviation 55.9 H RDW Coeff of Tru 16.2 H Plt Count 422 H MPV 11.2 H Immature Gran % (Auto) 1.6 Neut % (Auto) 62.8 Lymph % (Auto) 27.8 Rawlins % (Auto) 6.0 Eos % (Auto) 1.7 Baso % (Auto) 0.1 Immature Gran # (Auto) 0.22 H Neut # (Auto) 8.65 H Lymph # (Auto) 3.83 H Rawlins # (Auto) 0.82 H Eos # (Auto) 0.23 Baso # (Auto) 0.02 Absolute Nucleated RBC 0.05 H Nucleated RBC % (auto) 0.4 Sodium 139 Potassium 4.6 Chloride 106 Carbon Dioxide 25 Anion Gap 8.0 BUN 25 H Creatinine 1.34 H Est Cr Clr Drug Dosing 23.8 Est GFR ( Amer) 41.5 Est GFR (Non-Af Amer) 35.8 BUN/Creatinine Ratio 18.9 Glucose 118 H POC Glucose 124 H Calcium 8.7 10/20/18 10/20/18 10/20/18 07:22 11:18 16:23 WBC RBC Hgb Hct MCV MCH MCHC RDW Std Deviation RDW Coeff of Tru Plt Count MPV Immature Gran % (Auto) Neut % (Auto) Lymph % (Auto) Rawlins % (Auto) Eos % (Auto) Baso % (Auto) Immature Gran # (Auto) Neut # (Auto) Lymph # (Auto) Rawlins # (Auto) Eos # (Auto) Baso # (Auto) Absolute Nucleated RBC Nucleated RBC % (auto) Sodium Potassium Chloride Carbon Dioxide Anion Gap BUN Creatinine Est Cr Clr Drug Dosing Est GFR ( Amer) Est GFR (Non-Af Amer) BUN/Creatinine Ratio Glucose POC Glucose 121 H 164 H 87 Calcium Medications Administered Current Inpatient Medications Acetaminophen (Tylenol) 650 mg PO Q4H PRN PRN Reason: pain/fever Stop: 11/09/18 16:44 Last Admin: 10/17/18 20:13 Dose: 650 mg Acetaminophen (Tylenol) 650 mg PO Q4H PRN PRN Reason: PAIN 1-3 Stop: 11/15/18 13:41 Amlodipine Besylate (Norvasc) 5 mg PO QAM [facility] Stop: 11/15/18 16:29 Last Admin: 10/20/18 07:56 Dose: 5 mg Artificial Tears (Artificial Tears) 1 drops OPB DAILY PRN PRN Reason: DRY EYES Stop: 11/09/18 17:39 Aspirin (Ecotrin Ectab) 81 mg PO DAILY ISIAH Stop: 11/10/18 08:59 Last Admin: 10/20/18 07:55 Dose: 81 mg Atorvastatin Calcium (Lipitor) 40 mg PO PM ISIAH Stop: 11/11/18 20:59 Last Admin: 10/20/18 19:58 Dose: 40 mg Bumetanide (Bumex) 0.5 mg PO QAM ISIAH Stop: 11/18/18 08:59 Last Admin: 10/20/18 07:54 Dose: 0.5 mg Cyanocobalamin (Vitamin B-12) 1,000 mcg PO DAILY ISIAH Stop: 11/20/18 08:59 Dextrose (Dextrose 50%) 25 - 50 ml IV UD PRN; Protocol PRN Reason: Hypoglycemia Protocol Stop: 11/09/18 16:44 Glucagon (Glucagen) 1 mg SQ UD PRN; Protocol PRN Reason: Hypoglycemia Protocol Stop: 11/09/18 16:44 Glucose (Glucose 40%) 15 - 30 gm PO UD PRN; Protocol PRN Reason: Hypoglycemia Protocol Stop: 11/09/18 16:44 Glucose (Dex4 Glucose) 4 - 8 tabs PO UD PRN; Protocol PRN Reason: Hypoglycemia Protocol Stop: 11/09/18 16:44 Heparin Sodium (Porcine) (Heparin Sodium (Porcine)) 5,000 units SQ Q8 ISIAH Stop: 11/14/18 13:59 Last Admin: 10/20/18 13:07 Dose: 5,000 units Hydralazine HCl (Hydralazine Hcl) 5 mg IV Q4H PRN PRN Reason: Hypertension Stop: 11/09/18 21:38 Ceftriaxone Sodium 2,000 mg/ (Dextrose) 70 mls @ 100 mls/hr IV DAILY ISIAH; Protocol Stop: 10/29/18 11:14 Last Infusion: 10/20/18 08:45 Dose: Infused Insulin Aspart (Novolog Flexpen) 0 units SC ACHS [facility] Stop: 11/09/18 17:29 Last Admin: 10/20/18 17:20 Dose: Not Given Insulin Glargine (Lantus Solostar Pen) 18 units SQ QAM ISIAH; Protocol Stop: 11/13/18 08:59 Last Admin: 10/20/18 07:58 Dose: 18 units Lactobacillus Acidophilus (Floranex) 4 tab PO QIDM ISIAH Stop: 11/12/18 16:59 Last Admin: 10/20/18 19:58 Dose: 4 tab Levothyroxine Sodium (Synthroid) 75 mcg PO PM ISIAH Stop: 11/09/18 20:59 Last Admin: 10/20/18 19:59 Dose: 75 mcg Metoprolol Tartrate (Lopressor) 25 mg PO BID ISIAH Stop: 11/15/18 20:59 Last Admin: 10/20/18 19:59 Dose: 25 mg Miscellaneous (Order Awaiting Action) 1 ea N/A QS ISIAH Stop: 11/10/18 00:00 Last Admin: 10/20/18 16:53 Dose: Not Given Miscellaneous (Order Awaiting Action) 1 ea N/A QS [facility] Stop: 11/10/18 00:00 Last Admin: 10/20/18 16:53 Dose: Not Given Miscellaneous (Carbohydrates For Hypoglycemia) 15 - 30 gm PO UD PRN PRN Reason: Hypoglycemia Treatment Stop: 11/09/18 16:44 Miscellaneous Information (Consult Glycemic Management Pharmacy) 1 ea N/A UD [facility]; Protocol Stop: 11/09/18 17:19 Multivitamins/Minerals (Multivitamin W/ Minerals Tab) 1 tab PO QAM ISIAH Stop: 11/10/18 08:59 Last Admin: 10/20/18 07:56 Dose: 1 tab Multivitamins/Minerals (Caltrate Plus) 1 tab PO BID ISIAH Stop: 11/19/18 20:59 Ropinirole HCl (Requip) 1 mg PO PM ISIAH Stop: 11/09/18 20:59 Last Admin: 10/20/18 19:59 Dose: 1 mg Vitamin D (Vitamin D3) 2,000 units PO DAILY ISIAH Stop: 11/20/18 08:59 Resident Activity Tracking Resident Involvement: Resident Care Provided Care Provided: Adult Hospital Medicine
[2018-10-20] MEDS: ACETAMINOPHEN 325 MG TAB PO PRN (20:07)
[2018-10-20] MEDS: CALCIUM 600MG + VIT D 400 IU TAB PO SCH (21:09)
[2018-10-21] MEDS: HEPARIN SOD 5,000 UNIT/0.5 ML VIAL SQ SCH ×2 (06:35→12:50)
[2018-10-21 07:27] LABS: Basophils # (auto) 0.03 K/uL (0-0.2); Basophils % (auto) 0.2 %; Eosinophils % (auto) 1.7 %; Hematocrit (blood only) 32.9 % (37-47); Hemoglobin 10.6 g/dL (12.0-16.0); Immature Granulocytes # (auto) 0.18 K/uL (0.00-0.02); Immature Granulocytes % (auto) 1.5 %; Lymphocytes % (auto) 24.9 %; Mean Corpuscular Hgb Conc 32.2 g/dL (32-36); Mean Corpuscular Volume 97.9 fL (80-100); Mean Platelet Volume 11.1 fL (7.4-10.4); Monocytes # (auto) 0.84 K/uL (0.11-0.59); Neutrophils # (auto) 7.81 K/uL (1.4-6.5); Neutrophils % (auto) 64.7 %; Nucleated RBC # (auto) 0.05 K/uL (0-0); Nucleated RBC % (auto) 0.4 %; Platelet Count 388 K/uL (130-400); RDW Coefficient of Variation 16.3 % (11.5-14.5); RDW Standard Deviation 55.7 fL (36.4-46.3); Red Blood Count 3.36 M/uL (4.2-5.4); White Blood Count 12.06 K/uL (4.8-10.8)
[2018-10-21 08:05] LABS: Albumin Level 2.6 gm/dl (3.4-5.0); BUN Creatinine Ratio 18.5 (10-20); Calcium 8.7 mg/dl (8.5-10.1); Est GFR (Non-African American) 39.7; Potassium 4.1 mmol/L (3.5-5.1)
[2018-10-21 08:07] LABS: Albumin Globulin Ratio 0.6 (0.9-2); Bilirubin,Total 0.6 mg/dl (0.2-1); Total Protein 6.6 gm/dl (6.4-8.2)
[2018-10-21 08:21] VITALS: TEMP 97.7; O2SAT 94
[2018-10-21] MEDS ORDERED: CYANOCOBALAMIN 500 MCG TABLET (VITAMIN B-12) PO SCH (09:00)
[2018-10-21] MEDS ORDERED: CHOLECALCIFEROL 1,000 UNITS TAB PO SCH (09:00)
[2018-10-21] MEDS: CALCIUM 600MG + VIT D 400 IU TAB PO SCH (09:08)
[2018-10-21] MEDS: LACTOBACILLUS ACIDOPHILUS (FLORANEX) TAB PO SCH ×2 (09:08→12:48)
[2018-10-21] MEDS: BUMETANIDE 1 MG TAB PO SCH (09:09)
[2018-10-21] MEDS: CEROVITE ADV FORMULA TAB PO SCH (09:09)
[2018-10-21] MEDS: ASPIRIN 81 MG ECTAB PO SCH (09:10)
[2018-10-21] MEDS: METOPROLOL TARTRATE 25 MG TAB PO SCH (09:10)
[2018-10-21] MEDS: AMLODIPINE BESYLATE 5 MG TAB PO SCH (09:10)
[2018-10-21] MEDS: INSULIN GLARGINE SOLOSTAR 100 UNITS/ML 3 ML PEN SQ SCH (09:12)
[2018-10-21] MEDS: INSULIN ASPART 100 UNITS/ML 3 ML PEN SC SCH ×2 (09:19→12:49)
[2018-10-21] MEDS: cefTRIAXone SODIUM 2,000 MG in DEXTROSE 5% 50 ML IV SCH (10:28)
--- NOTE | 2018-10-21 10:47 | Discharge Summary ---
Addendum entered and electronically signed by Dinesh Lassiter DO 10/21/18 11: 40: Addendum (Blank) Addendum October 21, 2018 11:39 Pt will also be d/c to [facility] with IV line in place for continued IV rocephin treatment for additional 8 days for group C streptococcal bacteremia. Original Note: Date of Service October 21, 2018 Admission HPI Per Admitting Provider 87yo F w/ hx of diastolic heart failure who presents with an episode of such. Per patient, she was in her normal state of health until 2am this morning. Last night, her daughter reports that she had potato salad with salt and ham for dinner. She awoke at 2am with shortness of breath. She denies any cough, no sputum production, denies any fevers or chills, denies any chest pain, abdominal pain, nausea, vomiting, or other concerns. Previously, she has required thoracenteses to help drain fluid from both sides of the lungs. The daughter reports 5 total. The last was in 10/2017 when she was hospitalized for a similar event. Principal Diagnosis chf exacerbation Discharge Exam Constitutional WD/WN, vitals as above Eyes PERRL, conjunctivae normal, anicteric sclerae ENMT external ear and nose normal, oropharynx normal Respiratory normal respiratory effort, lungs clear to auscultation Cardiovascular RRR, no murmur, no edema Gastrointestinal (Abdomen) normal bowel sounds, soft, nontender, no hepatosplenomegaly Skin no rashes, warm and dry Psychiatric A+Ox3, euthymic affect Discharge Data Allergies Allergy/AdvReac Type Severity Reaction Status Date / Time metformin AdvReac Unknown . Verified 10/03/17 11:41 oxycodone AdvReac Unknown HALLUCINATI Verified 10/03/17 11:41 ONS Consultations 10/10/18 12:50 ED Decision to Admit Stat 10/10/18 16:45 Consult Cardiology Routine 10/13/18 13:58 Consult Infectious Diseases Routine Procedures Performed Operation Date: 10/13/18 11:00 <No data on this case meets the specified criteria> Operation Date: 10/16/18 12:30 Actual Procedures p Cath, Left with Cors and Vent - Bernardo Mejía MD s Cineradiography w/Routine Exam - Bernardo Mejía MD Ordered Studies 10/10/18 12:47 CT angio chest PE protocol Stat 10/13/18 10:02 CL Cath Imgs for PACS use only Routine 10/16/18 07:00 CL Cath Imgs for PACS use only Routine Hospital Course (1) Acute respiratory failure with hypoxia: 87yo F w/ hx of diastolic heart failure, HTN, Sjogren's , CKD III, hypothyroid presented to [facility] with an episode of what she perceived to be CHF exacerbation. Per patient, she was in her normal state of health until she awoke at 2am with shortness of breath. Reports having potato salad with salt and ham for dinner the night before. Denied any cough, no sputum production, fevers or chills, chest pain, abdominal pain, nausea, or vomiting. Pt further noted requiring thoracenteses to help drain fluid from both sides of the lungs maybe 5 times prior, last in 10/2017 when she was hospitalized for a similar event. The following was the medical management during pt's stay here. 1) NSTEMI -pt was noted to have elevated trops during admission, troponin peaked at 7.5, but pt denied any chest pain or chest pressure. Pt had catheterization about 3 years ago prior to TAVR and showed mild disease. Cardiac cath here on 10/16 showed only mild CAD. Echo here showed EF down slightly at 50-55% compared to prior EF of 65%, apical anterior lateral wall hypokinesis, and TAVR in good position and working well. Pt was continued on aspirin and Lipitor (increased to 40mg from 20mg). Cardio did not believe this to be ischemic. Pt was additonally on metoprolol 25mg TID and observed on monitor without event. 2) Acute on chronic diastolic (congestive) heart failure -Pt's shortness of breath improved significantly and on d/c patient appears back to baseline. Pt was initially on Bumex 2mg PO daily during hospital stay. She will be resuming 1mg at discharge. Echo as noted above: EF down compared to prior echo, 50-55%. Pt was monitored for strict I/O, daily weight. Pt's acute respiratory failure with hypoxia was due to pulmonary edema (as seen on Chest CTA) and treated with Bumex as mentioned. Pt on room air on d/c. Pt worked with PT/OT here and tolerated well, recommend continued rehab services. 3) COLTEN/ CKD III -COLTEN stable/resolved on d/c , Cr 1.2. Initially was likely due to NSTEMI and aggressive diuresis. Pt's Vasotec was held in setting of COLTEN, but can be resumed on d/c. Pt's GFR 30-59 ml/min, 39 on d/c. Baseline Cr ~1.2 with a GFR ~ 40. Bumex tx as above. 4) HTN -Pt's BP was stable. Likely initially elevated due to NSTEMI and tachycardia. Pt was titrated up on Lopressor during stay and was held on Norvasc and Vasotec , but pt may resume these on discharge 5) DM -Pt's last A1c was 6.7% from 12/2017. Pt was placed on ISS and lowered home Lantus to 18 units QAM and given lower-calorie, hospital diet. Pt will continue home Lantus on discharge 6) Hypothyroidism -Pt had no signs of hypo/hyperthryoidism during stay. Last TSH was 1.6 in 2017. Pt was continued on home Synthroid 75 mcg 7) Sjogrens syndrome -Pt has history of lupus and Sjogren's syndrome and reports that any medications were not helpful because they had more side effect than benefit. Pt was continued on extensive eye-dryness regimen DVT prophylaxis was initially heparin drip and then on heparin sub q. At time of d/c, pt has no other acute concerns or complaints. Total Time Total Time Spent Total Time Spent (In Minutes): <30 min Discharge Plan Discharge Items Patient Disposition: Transfer Shelter Fac Reason For Visit: CHF EXACERBATION Discharge Diagnosis: chf exacerbation Discharge Goals: Improve disease control and Improve function Activity: Per 'Additional Instructions' section Non-emergency contact: Primary Care Provider Call non-emergency contact if: you have any medication questions and your symptoms worsen Diet: Carb Consistent or DM2 Addtl Provider Instructions: You were admitted for an acute CHF exacerbation and treated for this. Please follow the below instructions and information packet attached: -We increased your home dose of bumex while here, and you will resume your regular dose of 1 mg on discharge. -Continue working with PT/OT services at [facility] -You were also noted to have increased heart injury markers while here called troponins although this was not thought to be ischemic in nature. You got a Cath and it showed only mild coronary artery dx. You will continue ASA, Lipitor , and Metoprolol on d/c. -Continue your Norvasc and Vasotec on discharge along with an increased dose of metoprolol 25 mg. Prescriptions: New metoprolol tartrate 25 mg Tablet 25 mg PO BID Qty: 30 RF: 0 ceftriaxone 2 gram recon soln 2 gm IV DAILY Qty: 8 RF: 0 Continue atorvastatin 20 mg tablet 20 mg PO PM RF: 0 ropinirole 1 mg tablet 1 mg PO PM RF: 0 cyanocobalamin (vitamin B-12) [Vitamin B-12] 1,000 mcg Tablet 1,000 mcg PO DAILY RF: 0 diphenoxylate-atropine [Lomotil] 2.5-0.025 mg Tablet 2 tab PO BID PRN (Reason: Diarrhea) RF: 0 amlodipine 5 mg tablet 5 mg PO PM RF: 0 aspirin 81 mg Tablet,Delayed Release (Dr/Ec) 81 mg PO DAILY RF: 0 levothyroxine 75 mcg tablet 75 mcg PO PM RF: 0 calcium carbonate [Calcium 600] 600 mg calcium (1,500 mg) Tablet 600 mg PO BID RF: 0 bumetanide 1 mg tablet 1 mg PO DAILY RF: 0 benazepril 20 mg tablet 20 mg PO DAILY RF: 0 peg 400-propylene glycol (PF) [Systane (PF)] 0.4-0.3 % Dropperette 1 drp OPB DAILY PRN (Reason: Dry Eye(S)) RF: 0 cholecalciferol (vitamin D3) [Vitamin D3] 1,000 unit Tablet 2,000 unit PO DAILY RF: 0 insulin glargine 100 unit/mL (3 mL) insulin pen 22 units subcut QAM RF: 0 white petrolatum-mineral oil [Systane Nighttime] 94-3 % Ointment 1 applic OPB DAILY PRN (Reason: Dry Eye(S)) RF: 0 white petrolatum-mineral oil [Refresh P.M.] 57.3-42.5 % Ointment 1 applic OPB DAILY RF: 0 C,E,zinc,copper [id number] [Ocuvite Adult 50 Plus] 250-5-1 mg Capsule 1 cap PO QAM RF: 0 bromfenac 0.07 % drops 1 drp OPB DAILY RF: 0 Discontinued meloxicam 15 mg tablet 7.5 mg PO DAILY RF: 0 metoprolol tartrate 25 mg tablet 12.5 mg PO BID RF: 0 Stand-Alone Forms: My [facility] Discharge Orders: Discharge Order (Routine); Ordered 10/21/18 Ordered By: Dinesh Lassiter Skilled Items Patient informed of condition?: Yes DNR: No Discharge Level of Care: Acute rehab Communicable Disease: No Discharge Prognosis: Stable Admission Data Admit Date/Time: 10/10/18 14:08 Attending Provider: Hernandez Garg Admit Provider: Kofi Treviño Primary Care Provider: Lottie Winn Other Providers: Milind Davies ; Kofi Treviño ; Joaquim Adam ; Emmy Selby Service: Medical Other Interventions: Discharge Summary Assessment (RN) Last Done: 10/21/18 12:00 DC Date/Time DO NOT enter until pt leaves facility: 10/21/18 13:52 Supervising Physician Co-Signing Physician Notes I personally examined the patient and verified all silverman points of history and exam, discussed case, and agree with decision making with Dr Lassiter. Feeling okay, ready to go to SNF Vitals noted, in general she is awake alert no distress. HEENT normocephalic atraumatic mucous membranes are moist. Skin shows no rashes no pallor or icterus. Breathing is unlabored no accessory muscle use. Acute on chronic diastolic congestive heart failure -Now compensated -Stable for SNF, meds as above, close follow-up. Bacteremiafinish out a course of Rocephin, 14 days total. Resident Activity Tracking Resident Involvement: Resident Care Provided Care Provided: Adult Hospital Medicine
[2018-10-21 12:03] VITALS: BP 136/70; PULSE 74
--- NOTE | 2018-10-22 10:10 | Operative Report ---
Post Operative Report Pre & Post Diagnosis Operation Date: 10/13/18 11:00 <No data on this case meets the specified criteria> Operation Date: 10/16/18 12:30 <No data on this case meets the specified criteria> Procedure Operation Date: 10/13/18 11:00 <No data on this case meets the specified criteria> Operation Date: 10/16/18 12:30 Actual Procedures p Cath, Left with Cors and Vent - Bernardo Mejía MD s Cineradiography w/Routine Exam - Bernardo Mejía MD Surgeon Musa Mejía MD I attest to the content of the Intraoperative Record and any orders documented therein. Any exceptions are noted below.
--- NOTE | 2018-10-23 12:08 | Coding Query ---
CODING QUERY To promote full compliance with coding requirements relating to patient care, provider participation is requested in all cases of industrial relations analyst uncertainty. Please assist us with the question(s) below: Coding Question(s): 1. NSTEMI is documented through the record and on the Discharge Summary and there is mention that Cardio did not believe this to be ischemic. Please clarify below, in your clinical opinion. ( ) NSTEMI has been ruled out ( x) Possible NSTEMI was treated 2. There was documentation in the record of NSTEMI vs Myocarditis, as on Progress Note 10/14, and Myocarditis was not documented in the later chart and Discharge Summary. Please specify below, in your clinical opinion, regarding Myocarditis. ( x ) Myocarditis was ruled out ( ) Possible Myocarditis was treated Physician's Response(s): Thank you Neelima Richardson Principal Diagnosis: "that condition established after study, to be chiefly responsible for occasioning the admission of the patient to the hospital for care." Co-Existing Principal Diagnosis: "when two or more diagnoses equally meet the criteria for principal diagnosis as determined by the circumstances of admission, diagnostic work up, and/or therapy provided, and the Alphabetic Index, Tabular List, or another coding guideline does not provide sequencing direction, any one of the diagnoses may be sequenced first." "When the physician has documented what appears to be a current diagnosis in the body of the record, but has not included the diagnosis in the final diagnostic statement, the physician should be asked whether the diagnosis should be added." (Source Coding [facility] 2 QTR90. p3-4) EULALIA
--- NOTE | 2018-10-23 12:21 | Coding Query ---
PRESENT ON ADMISSION QUERY To promote full compliance with coding requirements relating to pateint care, physician participation is requested in all cases of truant officer uncertainty. Please assist us with the question(s) below: Please place an X within the parenthesis (x). The following diagnosis(es) listed in this patient's medical record require physician assistance to determine if they were present on admission (POA) or not. Please advise for each diagnosis whether it was present on admission, not present on admission, or if it was clinically undetermined. 1. Bacteremia (documented blood culture on 10/12 and documented in Infectious Disease Consult on 10/13 through Discharge Summary) ( ) Present On Admission ( x) Not Present On Admission ( ) Clinically Undetermined 2. Acute Respiratory Failure with hypoxia - regarding the Acute Respiratory Failure diagnosis (hypoxia was documented in the ER but the Acute Respiratory Failure was not documented until 10/12 Progress Note) (x ) Present On Admission ( ) Not Present On Admission ( ) Clinically Undetermined Thank you Neelima Richardson *Definition of the present on admission (POA)-Present on admission is defined as present at the time the order for inpatient admission occurs. Conditions that develop during an outpatient encounter prior to a written order for inpatient admission (including emergency department, observation, or outpatient surgery) are considered present on admission. MTDD
== END 2018-10-21 13:52 | DRG 280 ==
LOC: ED 09:45 → 2W 14:08 → SUATTDRO 14:08 → 2W 15:01 → 2S 10-16 13:15 → 4E 10-20 18:43

== ENCOUNTER 2019-11-05 12:29 | Inpatient (IN) ==
[2019-11-05] MEDS ORDERED: SODIUM CHLORIDE 0.9% 1000ML 1,000 ML IV SCH (13:15)
[2019-11-05 13:37] LABS: Basophils # (auto) 0.02 K/uL (0-0.2); Basophils % (auto) 0.2 %; Eosinophils # (auto) 0.04 K/uL (0-0.5); Eosinophils % (auto) 0.4 %; Hematocrit (blood only) 50.2 % (37-47); Hemoglobin 15.9 g/dL (12.0-16.0); Immature Granulocytes # (auto) 0.02 K/uL (0.00-0.02); Immature Granulocytes % (auto) 0.2 %; Lymphocytes # (auto) 1.19 K/uL (1.2-3.4); Lymphocytes % (auto) 11.8 %; Mean Corpuscular Hemoglobin 32.4 pg (25-34); Mean Corpuscular Hgb Conc 31.7 g/dL (32-36); Mean Corpuscular Volume 102.2 fL (80-100); Mean Platelet Volume 10.8 fL (7.4-10.4); Monocytes # (auto) 0.63 K/uL (0.11-0.59); Monocytes % (auto) 6.3 %; Neutrophils # (auto) 8.18 K/uL (1.4-6.5); Neutrophils % (auto) 81.1 %; Platelet Count 263 K/uL (130-400); RDW Coefficient of Variation 16.5 % (11.5-14.5); RDW Standard Deviation 61.1 fL (36.4-46.3); Red Blood Count 4.91 M/uL (4.2-5.4); White Blood Count 10.08 K/uL (4.8-10.8)
[2019-11-05 13:41] LABS: Albumin Level 3.4 gm/dl (3.4-5.0); BUN Creatinine Ratio 20.4 (10-20); Calcium 8.9 mg/dl (8.5-10.1); Creatinine Clr Calc Pharmacy 21.8 ml/min; Est GFR (African American) 37.7; Est GFR (Non-African American) 32.6; Magnesium 2.4 mg/dl (1.8-2.4)
--- NOTE | 2019-11-05 13:49 | XRay Report ---
XR chest 1V portable CLINICAL HISTORY: 88 years-old Female presenting with syncope. TECHNIQUE: Portable upright AP view of the chest was obtained. COMPARISON: 10/08/2019. FINDINGS: Mediastinal surgical clips and stented prosthetic aortic valve. Atherosclerosis of the aortic arch. C ardiac silhouette enlarged. Pulmonary vascular prominence. Patchy nodular opacities most prominently in the right mid to lower lung. Mild interstitial prominence the lung bases. Trace bilateral pleural effusions. Degenerative changes of the thoracic spine. Upper abdomen normal. IMPRESSION: 1. Nodular infiltrates in the right mid to lower lung. This in part correlates with the known underl nadir calcified nodule/possible hamartoma. New nodular infiltrates or atelectasis at the right lung ba se difficult to exclude given the more extensive abnormality on the current exam in comparison to huang or. 2. Cardiomegaly with mild volume overload and congestive change. No deshawn pulmonary edema. 3. Small bilateral pleural effusions. ACT 112: Negative or not required by law. Results electronically sent 11/05/2019 1:48 PM to: Licha Clemons DO Electronically signed by: Earle Aguilar M.D. 11/05/2019 1:48 PM
[2019-11-05 13:59] LABS: Albumin Globulin Ratio 0.9 (0.9-2); Bilirubin,Total 0.8 mg/dl (0.2-1); Globulin 3.9 gm/dl (2.5-4.0); Thyroid Stimulating Hormone 1.57 uIu/ml (0.300-4.500); Total Protein 7.3 gm/dl (6.4-8.2); Troponin I 0.299 ng/ml (0-0.045)
--- NOTE | 2019-11-05 14:05 | CT Scan Report ---
CT SCAN OF THE BRAIN WITHOUT IV CONTRAST CLINICAL HISTORY: Syncope. COMPARISON STUDY: No priors. TECHNIQUE: Unenhanced axial CT scan of the brain is performed from the vertex to the skull base. A do se lowering technique was utilized adhering to the principles of ALARA. 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 There are age-related involutional changes not ing moderate subcortical and periventricular microangiopathic change. There is no hemorrhage, mass e ffect, or evidence of acute territorial ischemia by CT criteria. Schneider-white matter differentiation is preserved. No extra-axial fluid collection is seen. Ventricles, sulci, cisterns: Prominent secondary to involutional change. Intracranial vasculature: There is atherosclerotic calcification of the cavernous carotid and vertebr al arteries. Calvarium: The skeletal structures are osteopenic. No depressed calvarial fracture is identified. Sinuses and mastoids: The visualized paranasal sinuses are clear. The mastoid air cells are well pneu matized. Orbits: The bony orbits are grossly intact. There is a left ocular lens implant. A 7 mm nodule is catrachita ntified in the left orbit on image #7. IMPRESSION: 1. There is no hemorrhage, mass effect, or evidence of acute territorial ischemia by CT criteria. 2. There is a 7 mm indeterminate nodule identified within the left orbit. This is of indeterminant, i f any, clinical significance. Consider nonemergent ophthalmologic follow-up. ACT 112: Negative or not required by law. Results electronically sent 11/05/2019 2:04 PM to: Licha Clemons DO Electronically signed by: Mook Carpio M.D. 11/05/2019 2:04 PM
--- NOTE | 2019-11-05 14:07 | CT Scan Report ---
CT cervical spine wo con CLINICAL HISTORY: 88 years-old Female presenting with syncope, fall. TECHNIQUE: Multidetector CT of the cervical spine was performed without the use of intravenous contra st. IV contrast: None. One or more dose lowering techniques were used consistent with the principles of ALARA (as low as reasonably achievable), including automatic exposure control, mA or kV adjustment to individual patient size, and/or use of iterative reconstruction. COMPARISON: Plain radiographs from 2006. CT DOSE (mGy.cm): The estimated cumulative dose is 834.96 mGy.cm. FINDINGS: [employer] topogram: Unremarkable. Slightly exaggerated cervical lordosis. Trace anterolisthesis of C5 on C6. Vertebral bodies otherwise maintain normal height and alignment. Multilevel intervertebral disc height loss, most severe at C6- 7. Disc ossify complexes noted to varying degrees at several levels most prominently at C6-7, where t here is mild posterior spondylosis spurring. Evaluation of the soft tissues of the spinal canal do no t demonstrate further effacement of the thecal sac. Upper cervical spine predominant facet arthropath y. This in combination with very degrees of uncovertebral hypertrophy results in osseous neural dileep inal narrowing throughout the cervical spine. Moderate degenerative changes of the atlantodental lele culation. No acute fracture or subluxation. Visualized portion of the skull base intact. Paraspinal s oft tissues within normal limits. Bilateral pleural effusions. IMPRESSION: 1. No acute osseous injury of the cervical spine. 2. Multilevel degenerative changes. 3. Bilateral pleural effusions. ACT 112: Negative or not required by law. Results electronically sent 11/05/2019 2:06 PM to: Licha Clemons DO Electronically signed by: Earle Aguilar M.D. 11/05/2019 2:06 PM
[2019-11-05] MEDS ORDERED: AZITHROMYCIN 250 MG TAB PO ONE (15:20)
[2019-11-05] MEDS ORDERED: cefTRIAXone SODIUM 1,000 MG/50 ML BAG IV STA (15:20)
--- NOTE | 2019-11-05 15:20 | Emergency Department Note ---
Entered by Emilee Casiano acting as a scribe for History of Present Illness General Chief complaint: Hypoglycemia Stated complaint: LOW BLOOD SUGAR - DIZZY - SHAKY Time Seen by Provider: 11/05/19 12:59 Source: patient and family History of Present Illness Onset (ago): day(s) 1 Location: head (hypoglycemia) Pain Consistency: + other (persistent) Quality: + other (hypoglycemia) Associated symptoms: + confusion, + weakness and + other (dizziness) Treatments prior to arrival: none The patient is an 88 year old female presenting to the Emergency Department complaining of persistent hypoglycemia starting 1 day ago. The patient reports that she is weak. She states that she has a bruise on her head and doesnt remember how she got it. She explains that she feels dizzy. Patient does not remember getting up earlier today. She notes that she has never experienced these symptoms before. She adds that she doesnt remember if she ate breakfast this morning. Daughter states she would usually take her insulin with her meal. The patients daughter reports that the patient is weak and mildly confused. Sh e states that the patients Verapamil was lowered from 180 mg to 125 mg and that she took this new dose last night. She explains that the patient has missed at least one full day of her medications and that she normally takes Aspirin daily. 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 She adds that the patient received no medications for her symptoms PRIMARY CARE NURSE PRACTITIONER. No other recent illness o r infection. Home Medications Home Medications Medication Instructions Recorded Confirmed Type Ocuvite Adult 50 Plus 1 cap PO QDL 10/10/18 11/05/19 History Systane Nighttime 1 applic OPB DAILY PRN 10/10/18 11/05/19 History aspirin 81 mg PO QDL 10/10/18 11/05/19 History bromfenac 1 drp OPB DAILY 10/10/18 11/05/19 History calcium carbonate [Calcium 600] 600 mg PO QDL 10/10/18 11/05/19 History cholecalciferol (vitamin D3) 2,000 unit PO QDL 10/10/18 11/05/19 History [Vitamin D3] cyanocobalamin (vitamin B-12) 1,000 mcg PO QDL 10/10/18 11/05/19 History [Vitamin B-12] diphenoxylate-atropine [Lomotil] 2 tab PO BID PRN 10/10/18 11/05/19 History atorvastatin 20 mg tablet 20 mg PO PM #90 tab 05/12/19 11/05/19 Rx magnesium oxide 200 - 400 mg PO PM tab 05/20/19 11/05/19 History pen needle, diabetic 32 gauge x #200 ea 05/20/19 10/28/19 Rx 5/32" meloxicam 7.5 mg tablet 3.75 mg PO QAM PRN tab 10/14/19 11/05/19 History metoprolol tartrate 25 mg tablet 12.5 mg PO BID #90 tab 10/14/19 11/05/19 Rx benazepril 20 mg PO QAM 11/05/19 11/05/19 History bumetanide 1 mg PO QAM 11/05/19 11/05/19 History insulin glargine [Lantus Solostar 22 units SUBCUT QAM 11/05/19 11/05/19 History U-100 Insulin] levothyroxine [Euthyrox] 100 mcg PO PM 11/05/19 11/05/19 History ropinirole 1 mg PO PM 11/05/19 11/05/19 History Allergies Allergy/AdvReac Type Severity Reaction Status Date / Time gabapentin Allergy Verified 11/05/19 16:43 metformin AdvReac Unknown . 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 Family History Father Myocardial infarction Unknown Atherosclerosis Brother Diabetes Denies family history of Ovarian cancer Prostate cancer Breast cancer Colorectal cancer Social History Preferred Language: Burmese Communication Ability: Impaired Social Services Specialist Required: No Beliefs That Will Affect Care: None Current Living Situation: Alone Other Information That Helps Us Care for You: No Feels Safe at Home: Yes Safety Concerns: Feels Safe At This Time Smoking Status: Never smoker Do You Dip or Chew Tobacco: No ; Second Hand Exposure: No ; Tobacco Cessation Education Requested by Patient: No Hx Alcohol Use: No Hx Substance Use: No Review of Systems See HPI for pertinent positives & negatives. and A total of 10 systems reviewed and were otherwise negative Physical Exam Vital Signs Vital Signs - 24 hr 11/05/19 12:43 Pulse Rate 56 L Respiratory Rate 20 Blood Pressure 151/57 H Blood Pressure Mean 88 Pulse Oximetry 96 Oxygen Delivery Method Room Air Sepsis Recent Fever Within 48 Hours No Sepsis New/Unexplained Change in Mental Status No Sepsis Action Taken by Nursing No Action Required GENERAL: Patient is tremulous. alert, frail appearing, well nourished, no distress, non-toxic HEAD: Contusion to right superior forehead. EYE EXAM: normal conjunctiva, PERRL and EOM's grossly intact OROPHARYNX: no exudate, no erythema, lips, buccal mucosa, and tongue normal and mucous membranes are moist NECK: supple, no nuchal rigidity, no adenopathy, non-tender LUNGS: Clear to auscultation. Normal chest wall mechanics HEART: no murmurs, S1 normal and S2 normal ABDOMEN: abdomen soft, non-tender, normo-active bowel sounds, no masses, no rebound or guarding. BACK: Back is symmetrical on inspection and there is no deformity, no midline tenderness, no CVA tenderness. SKIN: no rashes and no bruising UPPER EXTREMITIES: upper extremities are grossly normal. FROM, nml pulses b/l. Scattered contusions in various stages of healing. LOWER EXTREMITIES: Faint cyanosis noted to bilateral toes. Cool to touch. Equal pulses bilaterally. NEURO EXAM: Normal sensorium, cranial nerves II-XII grossly intact, normal speech, no gross weakness of arms, no gross weakness of legs. Course Course 1300: The patient was evaluated in room B5, and a complete history and physical examination were performed. 1501: I updated the patient and her family at this time. No further cyanosis noted to distal lower extremities as they are now warm after being wrapped up in blankets. Patient awake and alert, has no complaints, and is asking to eat. 1515: [facility] will evaluate the patient for further management. Administered Medications Al Hydrox/Mg Hydrox/Simethicone (Maalox) 15 ml PO Q4H PRN PRN Reason: Dyspepsia Stop: 12/05/19 17:59 Last Admin: 11/06/19 11:12 Dose: 15 ml Documented by: [id number] Aspirin (Ecotrin Ectab) 81 mg PO DAILY ISIAH Stop: 12/05/19 17:59 Last Admin: 11/06/19 08:12 Dose: 81 mg Documented by: [id number] Admin: 11/05/19 20:04 Dose: 81 mg Documented by: [id number] Atorvastatin Calcium (Lipitor) 20 mg PO PM ISIAH Stop: 12/05/19 20:59 Last Admin: 11/05/19 20:05 Dose: 20 mg Documented by: [id number] Bumetanide (Bumex) 1 mg PO DAILY ISIA[facility] Stop: 12/05/19 18:59 Last Admin: 11/06/19 08:11 Dose: 1 mg Documented by: [id number] Admin: 11/05/19 20:04 Dose: 1 mg Documented by: [id number] Cyanocobalamin (Vitamin B-12) 1,000 mcg PO DAILY ISIA[facility] Stop: 12/06/19 08:59 Last Admin: 11/06/19 08:14 Dose: 1,000 mcg Documented by: [id number] Enalapril Maleate (Vasotec) 20 mg PO DAILY ISIA[facility] Stop: 12/06/19 08:59 Last Admin: 11/06/19 08:15 Dose: 20 mg Documented by: [id number] Ceftriaxone Sodium 2,000 mg/ (Dextrose) 70 mls @ 100 mls/hr IV Q24H ISIA[facility]; Protocol Stop: 11/12/19 15:59 Last Admin: 11/06/19 15:46 Dose: 100 mls/hr Documented by: [id number] Azithromycin 250 mg/ Dextrose 252.5 mls @ 125 mls/hr IV DAILY ISIAH Stop: 11/09/19 11:02 Last Infusion: 11/06/19 11:00 Dose: 125 mls/hr Documented by: [id number] Admin: 11/06/19 09:00 Dose: 125 mls/hr Documented by: [id number] Furosemide 40 mg/ Syringe 4 mls @ 4 mls/min IV DAILY ISIAH Stop: 12/06/19 08:59 Last Admin: 11/06/19 08:17 Dose: 4 mls/min Documented by: [id number] Insulin Aspart (Novolog Flexpen) 0 units SC ACHS [facility]; Protocol Stop: 12/05/19 19:29 Last Admin: 11/06/19 12:28 Dose: 3 units Documented by: [id number] Cosigned by: [id number] Admin: 11/06/19 08:18 Dose: 1 units Documented by: [id number] Cosigned by: [id number] Admin: 11/05/19 21:47 Dose: Not Given Documented by: [id number] Cosigned by: [id number] Admin: 11/05/19 20:06 Dose: Not Given Documented by: [id number] Cosigned by: [id number] [facility] Stop: 12/05/19 18:59 Last Admin: 11/06/19 06:22 Dose: 100 mcg Documented by: [id number] Admin: 11/05/19 20:05 Dose: 100 mcg Documented by: [id number] Magnesium Oxide (Mag-Ox) 400 mg PO DAILY [facility] Stop: 12/05/19 18:59 Last Admin: 11/06/19 08:12 Dose: 400 mg Documented by: [id number] Admin: 11/05/19 20:04 Dose: 400 mg Documented by: [id number] Metoprolol Tartrate (Lopressor) 12.5 mg PO BID [facility] Stop: 12/05/19 20:59 Last Admin: 11/06/19 08:12 Dose: 12.5 mg Documented by: [id number] Admin: 11/05/19 20:03 Dose: 12.5 mg Documented by: [id number] Miscellaneous (Order Awaiting Action) 1 ea N/A QS [facility] Stop: 12/06/19 07:59 Last Admin: 11/06/19 15:18 Dose: Not Given Documented by: [id number] Admin: 11/06/19 15:18 Dose: Not Given Documented by: [id number] Miscellaneous (Carbohydrates For Hypoglycemia) 15 - 30 gm PO UD PRN PRN Reason: Hypoglycemia Protocol Stop: 12/05/19 17:59 Last Admin: 11/05/19 18:00 Dose: 15 gm Documented by: [id number] Multivitamins/Minerals (Multivitamin W/ Minerals Tab) 1 tab PO QAM [facility] Stop: 12/06/19 08:59 Last Admin: 03/06/20 08:15 Dose: 1 tab Documented by: [id number] Multivitamins/Minerals (Caltrate Plus) 1 tab PO BIDM [facility]IA[facility] Stop: 12/06/19 07:59 Last Admin: 11/06/19 08:14 Dose: 1 tab Documented by: [id number] Ropinirole HCl (Requip) 1 mg PO HS [facility] Stop: 12/05/19 20:59 Last Admin: 11/05/19 20:05 Dose: 1 mg Documented by: [id number] Triamcinolone Acetonide (Kenalog 0.1%) 1 appln TOP BID [facility] Stop: 12/05/19 20:59 Last Admin: 11/06/19 08:18 Dose: 1 appln Documented by: [id number] Admin: 11/05/19 20:05 Dose: 1 appln Documented by: [id number] Vitamin D (Vitamin D3) 2,000 units PO DAILY [facility] Stop: 12/06/19 08:59 Last Admin: 11/06/19 08:14 Dose: 2,000 units Documented by: [id number] Discontinued Medications Azithromycin (Zithromax) 500 mg PO NOW ONE Stop: 11/05/19 15:21 Last Admin: 11/05/19 15:59 Dose: 500 mg Documented by: [id number] Sodium Chloride (Nss 1000ml) 1,000 mls @ 200 mls/hr IV .Q5H [facility] Stop: 12/05/19 13:14 Last Infusion: 11/05/19 20:24 Dose: 0 mls/hr Documented by: [id number] Admin: 11/05/19 14:25 Dose: 200 mls/hr Documented by: [id number] Ceftriaxone Sodium (Rocephin) 1,000 mg in 50 mls @ 100 mls/hr IV NOW STA Stop: 11/05/19 15:49 Last Infusion: 11/05/19 16:30 Dose: 0 mls/hr Documented by: [id number] Admin: 11/05/19 15:59 Dose: 100 mls/hr Documented by: [id number] Furosemide 40 mg/ Syringe 4 mls @ 4 mls/min IV DAILY [facility] Stop: 12/05/19 20:59 Last Admin: 11/05/19 20:23 Dose: Not Given Documented by: [id number] Insulin Glargine (Lantus Solostar Pen) 20 units SC NOW STA Stop: 11/06/19 12:20 Last Admin: 11/06/19 12:39 Dose: 20 units Documented by: [id number] Cosigned by: [id number] Medical Decision Making Differential Diagnosis Differential Diagnosis includes but is not limited to dehydration, stroke, anemia, hypoglycemia, hyponatremia, hypernatremia, urinary tract infection, pneumonia, bronchitis, sepsis, gastroenteritis, additional abdominal pathology, metabolic abnormalities and infections. Medical Records Attestation: I reviewed the patient's medical records. Home Medications Current Medication List: was personally reviewed by me Laboratory Data Attestation: I reviewed the patient's lab results. Result diagrams: 11/06/19 06:55 11/06/19 06:55 Lab Results 11/05/19 11/05/19 11/05/19 Range/Units 12:52 13:10 13:10 WBC 10.08 (4.8-10.8) K/uL RBC 4.91 (4.2-5.4) M/uL Hgb 15.9 (12.0-16.0) g/dL Hct 50.2 H (37-47) % MCV 102.2 H (80-100) fL MCH 32.4 (25-34) pg MCHC 31.7 L (32-36) g/dL RDW Std Deviation 61.1 H (36.4-46.3) fL RDW Coeff of Tru 16.5 H (11.5-14.5) % Plt Count 263 (130-400) K/uL MPV 10.8 H (7.4-10.4) fL Immature Gran % (Auto) 0.2 % Neut % (Auto) 81.1 % Lymph % (Auto) 11.8 % [place] % (Auto) 6.3 % Eos % (Auto) 0.4 % Baso % (Auto) 0.2 % Immature Gran # (Auto) 0.02 (0.00-0.02) K/uL Neut # (Auto) 8.18 H (1.4-6.5) K/uL Lymph # (Auto) 1.19 L (1.2-3.4) K/uL Victoria # (Auto) 0.63 H (0.11-0.59) K/uL Eos # (Auto) 0.04 (0-0.5) K/uL Baso # (Auto) 0.02 (0-0.2) K/uL Sodium 146 H (136-145) mmol/L Potassium 4.0 (3.5-5.1) mmol/L Chloride 112 H (98-107) mmol/L Carbon Dioxide 28 (21-32) mmol/L Anion Gap 7.0 (3-11) BUN 29 H (7-18) mg/dl Creatinine 1.44 H (0.6-1.2) mg/dl Est Cr Clr Drug Dosing 21.8 ml/min Est GFR ( Amer) 37.7 Est GFR (Non-Af Amer) 32.6 BUN/Creatinine Ratio 20.4 H (10-20) Glucose 77 (70-99) mg/dl POC Glucose 57 L* (70-99) mg/dl Calcium 8.9 (8.5-10.1) mg/dl Magnesium 2.4 (1.8-2.4) mg/dl Total Bilirubin 0.8 (0.2-1) mg/dl AST 59 H (15-37) U/L ALT 88 H (12-78) U/L Alkaline Phosphatase 126 H (45-117) U/L Troponin I 0.299 H* (0-0.045) ng/ml NT-Pro-B Natriuret Pep 53797 H (0-1800) pg/ml Total Protein 7.3 (6.4-8.2) gm/dl Albumin 3.4 (3.4-5.0) gm/dl Globulin 3.9 (2.5-4.0) gm/dl Albumin/Globulin Ratio 0.9 (0.9-2) Lipase 155 (73-393) U/L TSH 1.570 (0.300-4.500) uIu/ml Urine Color Urine Appearance (Clear) Urine pH (4.5-7.5) Ur Specific [place] (1.000-1.030) Urine Protein (Negative) Urine Glucose (UA) (Negative) Urine Ketones (Negative) Urine Blood (Negative) Urine Nitrite (Negative) Urine Bilirubin (Negative) Urine Urobilinogen (Negative) Ur Leukocyte Esterase (Negative) Urine WBC (Auto) (0-5) /hpf Urine RBC (Auto) (0-4) /hpf U Hyaline Cast (Auto) (0-5) /lpf U Epithel Cells (Auto) (0-5) /lpf Urine Bacteria (Auto) (Negative) 03/05/20 03/05/20 03/05/20 Range/Units 13:26 14:22 15:00 WBC (4.8-10.8) K/uL RBC (4.2-5.4) M/uL Hgb (12.0-16.0) g/dL Hct (37-47) % MCV (80-100) fL MCH (25-34) pg MCHC (32-36) g/dL RDW Std Deviation (36.4-46.3) fL RDW Coeff of Tru (11.5-14.5) % Plt Count (130-400) K/uL MPV (7.4-10.4) fL Immature Gran % (Auto) % Neut % (Auto) % Lymph % (Auto) % [place] % (Auto) % Eos % (Auto) % Baso % (Auto) % Immature Gran # (Auto) (0.00-0.02) K/uL Neut # (Auto) (1.4-6.5) K/uL Lymph # (Auto) (1.2-3.4) K/uL [place] # (Auto) (0.11-0.59) K/uL Eos # (Auto) (0-0.5) K/uL Baso # (Auto) (0-0.2) K/uL Sodium (136-145) mmol/L Potassium (3.5-5.1) mmol/L Chloride (98-107) mmol/L Carbon Dioxide (21-32) mmol/L Anion Gap (3-11) BUN (7-18) mg/dl Creatinine (0.6-1.2) mg/dl Est Cr Clr Drug Dosing ml/min Est GFR ( Amer) Est GFR (Non-Af Amer) BUN/Creatinine Ratio (10-20) Glucose (70-99) mg/dl POC Glucose 78 144 H (70-99) mg/dl Calcium (8.5-10.1) mg/dl Magnesium (1.8-2.4) mg/dl Total Bilirubin (0.2-1) mg/dl AST (15-37) U/L ALT (12-78) U/L Alkaline Phosphatase (45-117) U/L Troponin I (0-0.045) ng/ml NT-Pro-B Natriuret Pep (0-1800) pg/ml Total Protein (6.4-8.2) gm/dl Albumin (3.4-5.0) gm/dl Globulin (2.5-4.0) gm/dl Albumin/Globulin Ratio (0.9-2) Lipase (73-393) U/L TSH (0.300-4.500) uIu/ml Urine Color Yellow Urine Appearance Clear (Clear) Urine pH 7.0 (4.5-7.5) Ur Specific [place] 1.015 (1.000-1.030) Urine Protein 1+ H (Negative) Urine Glucose (UA) Negative (Negative) Urine Ketones Negative (Negative) Urine Blood Negative (Negative) Urine Nitrite Negative (Negative) Urine Bilirubin Negative (Negative) Urine Urobilinogen Negative (Negative) Ur Leukocyte Esterase Trace H (Negative) Urine WBC (Auto) 1-5 (0-5) /hpf Urine RBC (Auto) 0-4 (0-4) /hpf U Hyaline Cast (Auto) 1-5 (0-5) /lpf U Epithel Cells (Auto) 5-10 H (0-5) /lpf Urine Bacteria (Auto) Negative (Negative) Imaging Data Radiologist's Impression: Radiology results as stated below per my review and the radiologist's interpretation: CT SCAN OF THE BRAIN WITHOUT IV CONTRAST CLINICAL HISTORY: Syncope. COMPARISON STUDY: No priors. TECHNIQUE: Unenhanced axial CT scan of the brain is performed from the vertex to the skull base. A dose lowering technique was utilized adhering to the pr inciples of EFFIE. 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 There are age-related involutional changes noting moderate subcortical and periventricular microangiopathic change. There is no hemorrhage, mass effect, or evidence of acute territorial ischemia by CT criteria. Schneider-white matter differentiation is preserved. No extra-axial fluid collection is seen. Ventricles, sulci, cisterns: Prominent secondary to involutional change. Intracranial vasculature: There is atherosclerotic calcification of the cavernous carotid and vertebral arteries. Calvarium: The skeletal structures are osteopenic. No depressed calvarial fracture is identified. Sinuses and mastoids: The visualized paranasal sinuses are clear. The mastoid air cells are well pneumatized. Orbits: The bony orbits are grossly intact. There is a left ocular lens implant. A 7 mm nodule is identified in the left orbit on image #7. IMPRESSION: 1. There is no hemorrhage, mass effect, or evidence of acute territorial ischemia by CT criteria. 2. There is a 7 mm indeterminate nodule identified within the left orbit. This is of indeterminant, if any, clinical significance. Consider nonemergent ophtha lmologic follow-up. ACT 112: Negative or not required by law. Results electronically sent 11/05/2019 2:04 PM to: Licha Clemons DO Electronically signed by: Mook Carpio M.D. 11/05/2019 2:[address] cervical spine wo con CLINICAL HISTORY: 88 years-old Female presenting with syncope, fall. TECHNIQUE: Multidetector CT of the cervical spine was performed without the use of intravenous contrast. IV contrast: None. One or more dose lowering techniques were used consistent with the principles of ALARA (as low as reasonably achievable), including automatic exposure control, mA or kV adjustment to individual patient size, and/or use of iterative reconstruction. COMPARISON: Plain radiographs from 2005. CT DOSE (mGy.cm): The estimated cumulative dose is 834.96 mGy.cm. FINDINGS: Labor Relations Officer topogram: Unremarkable. Slightly exaggerated cervical lordosis. Trace anterolisthesis of C5 on C6. Vertebral bodies otherwise maintain normal height and alignment. Multilevel intervertebral disc height loss, most severe at C6-7. Disc ossify complexes noted to varying degrees at several levels most prominently at C6-7, where there is mild posterior spondylosis spurring. Evaluation of the soft tissues of the spinal canal do not demonstrate further effacement of the thecal sac. Upper cervical spine predominant facet arthropathy. This in combination with very degrees of uncovertebral hypertrophy results in osseous neural foraminal narrowing throughout the cervical spine. Moderate degenerative changes of the atlantodental articulation. No acute fracture or subluxation. Visualized portion of the skull base intact. Paraspinal soft tissues within normal limits. Bilateral pleural effusions. IMPRESSION: 1. No acute osseous injury of the cervical spine. 2. Multilevel degenerative changes. 3. Bilateral pleural effusions. ACT 112: Negative or not required by law. Results electronically sent 11/05/2019 2:06 PM to: Licha Clemons DO Electronically signed by: Earle Aguilar M.D. 11/05/2019 2:06 PM XR chest 1V portable CLINICAL HISTORY: 88 years-old Female presenting with syncope. TECHNIQUE: Portable upright AP view of the chest was obtained. COMPARISON: 10/08/2019. FINDINGS: Mediastinal surgical clips and stented prosthetic aortic valve. Atherosclerosis of the aortic arch. Cardiac silhouette enlarged. Pulmonary vascular prominence. Patchy nodular opacities most prominently in the right mid to lower lung. Mild interstitial prominence the lung bases. Trace bilateral pleural effusions. D egenerative changes of the thoracic spine. Upper abdomen normal. IMPRESSION: 1. Nodular infiltrates in the right mid to lower lung. This in part correlates with the known underlying calcified nodule/possible hamartoma. New nodular infiltrates or atelectasis at the right lung base difficult to exclude given the more extensive abnormality on the current exam in comparison to prior. 2. Cardiomegaly with mild volume overload and congestive change. No deshawn pulmonary edema. 3. Small bilateral pleural effusions. ACT 112: Negative or not required by law. Results electronically sent 11/05/2019 1:48 PM to: Licha Clemons DO Electronically signed by: Earle Aguilar M.D. 11/05/2019 1:48 PM ECG Data Attestation: I personally reviewed and interpreted this ECG as follows: Indication: + altered mental status and + weakness Rate (beats per minute): 52 Rhythm: + sinus bradycardia ECG Intervals/blocks: + Left bundle branch block ECG [place]: + Normal ECG ST segments: + T-wave inversions (TWI Lead 1, aVL, V5 and V6.) Comparison ECG Date: from (10/11/18) Change: no significant change Blood Pressure Blood Pressure Findings: Elevated blood pressure Blood Pressure Disposition: further management by hospitalist BERTA Narrative Cardiac Monitoring: An order was placed for continuous cardiac monitoring. The monitor shows a rate of 56 with sinus bradycardia. Patient here with concerning story due to possible syncope and obvious closed head injury and patient is amnestic to the events. Patient initially found to have mild hypoglycemia which was thought to perhaps play a contributing role. In addition, patient's verapamil that was recently started 2 weeks ago was also dose adjusted starting today. Patient is typically a well-controlled diabetic. Denies any recent illness or infection. Patient found to have a mild elevation of her creatinine, elevated troponin, elevated BNP. Patient's imaging negative for any additional injury and I have a low suspicion for any additional occult trauma. Patient's H&H stable, glucose levels remained up here after patient ate . Due to concern for multiple coexisting factors in the setting of likely syncopal event, discussed with patient and family all results and need for additional evaluation. They verbalized understanding were in agreement. Case discussed with hospitalist. I do not suspect ACS despite elevated troponin as patient with no acute EKG changes, no chest pain. I do not suspect dissection, tamponade, ACS. No evidence of pneumonia. Patient's other electrolytes stable despite mildly abnormal creatinine. Discussed possible ADR of the verapamil given that she has not felt well since starting it 2 weeks ago. Impression & Plan Syncope, Head injury, Facial contusion, Weakness, Elevated troponin, Elevated brain natriuretic peptide (BNP) level, Hypoglycemia Discharge Plan Visit Data *Final* Discharge Date/Time: 11/05/19 16:40 Chief Complaint: Hypoglycemia Stated Complaint: LOW BLOOD SUGAR - DIZZY - SHAKY ED Provider: Licha Clemons Discharge Problem: Syncope, Head injury, Facial contusion, Weakness, Elevated troponin, Elevated brain natriuretic peptide (BNP) level, Hypoglycemia Patient Disposition: Admitted As Inpatient Condition: Good Discharge Instructions Interventions: ED Discharge Assessment Last Done: 11/05/19 16:40 Discharge Problem: Syncope Qualifiers: Syncope type: unspecified Qualified Code(s): R55 - Syncope and collapse Head injury Qualifiers: Encounter type: initial encounter Qualified Code(s): S09.90XA - Unspecified injury of head, initial encounter Facial contusion Qualifiers: Encounter type: initial encounter Qualified Code(s): S00.83XA - Contusion of other part of head, initial encounter The scribe's documentation has been prepared under my direction and personally reviewed by me in its entirety. I confirm that the note above accurately reflects all work, treatment, procedures, and medical decision making performed by me.
[2019-11-05 16:02] LABS: Appearance Urine Clear (Clear); Bacteria Urine Automated Negative (Negative); Bilirubin Urine Negative (Negative); Blood Urine Negative (Negative); Color Urine Yellow; Glucose Urine UA Negative (Negative); Ketones Urine Negative (Negative); Leukocyte Esterase Urine Trace (Negative); Nitrite Urine Negative (Negative); Protein Urine 1+ (Negative); RBC Urine Automated 0-4 /hpf (0-4); Specific Gravity Urine 1.015 (1.000-1.030); Urobilinogen Urine Negative (Negative)
--- NOTE | 2019-11-05 16:26 | History & Physical Report ---
Date of Service November 05, 2019 Assessment & Plan (1) Syncope: It is not completely clear what happened last night because patient lives by herself and cannot recall the event, but most likely patient had syncopal episode which ended up with her falling and having face contusion and concussion . Admits to PCU on telemetry, Vital signs every 4 hours, TTE pending, Consult cardiology, Trend down troponin x3 EKG shows sinus bradycardia of 52 with left bundle branch block. Will hold verapamil for now until we discussed this with cardiology since heart rate is at the lower side. 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 Continue aspirin 81 mg p.o. daily, Continue atorvastatin 20 mg p.o. every afternoon Strict in and out, Daily weight, Low-sodium diet, Restrict p.o. intake to 1200 mils per day. DVT prophylaxis SCDs and teds Physical and Occupational Therapy, Speech and swallowing evaluation Full code Present on Admission?: Yes (2) Head injury: It appears to be a very small laceration and bruise at patient right forehead. No intervention necessary at this time. MRI brain pending and ultrasound of the carotid arteries to rule out possible TIA or stroke Present on Admission?: Yes (3) Facial contusion: As the above Present on Admission?: Yes (4) Elevated troponin: Patient has chronically elevated troponin which is visible and review of her chart, as well as BNP. Fact her BNP and troponin were both now lesser than they were last visit in October. We will continue trending troponin to make sure that it is not going higher than what was before. TTE pending Consult cardiology in regard of verapamil Present on Admission?: Yes (5) Chronic diastolic congestive heart failure: Patient appears to have chronically elevated BNP. She also has CKD which is contributing to poor clearance of BNP and troponin. Patient appears to be in mild congestive heart failure exacerbation. Will measure in and out daily, Daily weight, We will start tomorrow Lasix 40 mg IV daily, Monitor electrolytes, And restrict free water intake to 1200 mils per day Present on Admission?: Yes (6) Hypertension: Blood pressure is stable. Continue aspirin 81 mg daily L, We will hold benazepril 20 mg p.o. every morning because of worsening kidney function. Hold bumetanide 1 mg p.o. every morning since patient started on Lasix IV. Continue metoprolol tartrate 12.5 mg p.o. twice daily Present on Admission?: Yes (7) Hypothyroidism: TSH is 1.57/normal. Continue level thyroxine 100 MCG's p.o. every afternoon. Present on Admission?: Yes (8) Hearing loss: [place] patient every day in the room, place and time. Present on Admission?: Yes (9) Dyslipidemia: Fasting lipid panel pending. Continue atorvastatin 20 mg p.o. every afternoon. 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 A1c pending.A1c in 10/2019 was 6.5. Present on Admission?: Yes (11) Chronic renal insufficiency: Patient creatinine fluctuates between CKD stage IIIa and IIIb and in the range of 1.23-1.36 . Today patient creatinine is 1.44 which is increased in comparison to the October 2019. This could could be due to worsening congestive heart failure and third spacing. Avoid nephrotoxic agents. Continue monitoring closely creatinine. Present on Admission?: Yes (12) Carotid bruit: US of the carotid bilateral pending. We could not do CT a of the neck since patient is in renal insufficiency. Present on Admission?: Yes History of Present Illness Chief Complaint: Syncopal episode, s/p fall and head contusion Primary Care Provider: Lottie Winn MD The patient is an 88 years old female with past medical history of TAVR, hypertension, neuropathy, diabetes mellitus type 2 insulin-dependent, diastolic congestive heart failure, hypothyroidism, surgeon syndrome, CKD stage III, left bundle branch block, prior NSTEMI, osteopenia, dyslipidemia, carotid bruit, aortic regurgitation who was brought by EMS to the emergency room s/p syncopal episode at home. Patient complains of persistent hypoglycemia started 1 day ago. The patient reports that she is weak and she has a bruise on her head and does not remember how she got it. The patient's daughter reported that patient is weak and mildly confused in comparison to her baseline. Patient lives by herself and she is able to get around and she is always sharp except for this morning when patient reports that she found herself on the floor and lost memory for everything health that occurred prior to that. Patient states that she was switched from metoprolol to verapamil.initially she was started on verapamil 160 mg daily and then decrease 120 because she could not tolerate. This morning patient took the whole dose of verapamil 120 and that was prior to having the episode of syncope. Patient denies fever, chills, chest pain, shortness of breath, abdominal pain, frequency, urgency. Sodium 146, potassium 4, chloride 112, carbon dioxide 28, anion gap 7, BUN 29, creatinine 1.44, GFR 32.6, glucose 77, recheck glucose was 1 44, 62, 79, hemoglobin A1c from October 08 0.5 calcium 8.9, magnesium 2.4, total bilirubin 0.8, AST 59, ALT 88, alkaline phosphatase 126, troponin 0 0.299, and 0.275, BNP 18,742, 16007, total protein 7.4, albumin 3.4, globulin 3.9, lipase 155, TSH 1.57. Urine yellow, clear, urine pH 7, urine protein 1+, leukocyte Estrace trace, epithelial cells 5-10. Chest x-rays: Nodular infiltrates in the right mid to lower lung. This this in part correlates with the known underlying calcified nodule/possible hamartoma. New nodular infiltrates or atelectasis at the right lung base difficult to exclude given the more extensive abnormality of the current exam in comparison to prior. Cardiomegaly with mild volume overload and congestive changes. No deshawn pulmonary edema. Small bilateral pleural effusions. Head CT: There is no hemo rrhage, mass-effect or evidence of acute territorial ischemia at CT criteria. There is a 7 mm indeterminate nodule identified within the left orbit. This is of indeterminate if any clinical significance. Consider nonemergent ophthalmological follow-up. Cervical spine no acute osseous injury of the cervical spine. Multilevel degenerative changes. Bilateral pleural effusion. Blood culture pending x2. Decision was made to admit patient to PCU on telemetry for syncopal episode and concussion and to rule possibly TIA versus stroke. Allergies Allergy/AdvReac Type Severity Reaction Status Date / Time gabapentin Allergy Verified 11/05/19 16:43 metformin AdvReac Unknown . Verified 11/05/19 15:10 oxycodone AdvReac Unknown HALLUCINATI Verified 11/05/19 15:10 ONS Home Medications Home Medications Medication Instructions Recorded Confirmed Type Ocuvite Adult 50 Plus 1 cap PO QDL 10/10/18 11/05/19 History Systane Nighttime 1 applic OPB DAILY PRN 10/10/18 11/05/19 History aspirin 81 mg PO QDL 10/10/18 11/05/19 History bromfenac 1 drp OPB DAILY 10/10/18 11/05/19 History calcium carbonate [Calcium 600] 600 mg PO QDL 10/10/18 11/05/19 History cholecalciferol (vitamin D3) 2,000 unit PO QDL 10/10/18 11/05/19 History [Vitamin D3] cyanocobalamin (vitamin B-12) 1,000 mcg PO QDL 10/10/18 11/05/19 History [Vitamin B-12] diphenoxylate-atropine [Lomotil] 2 tab PO BID PRN 10/10/18 11/05/19 History atorvastatin 20 mg tablet 20 mg PO PM #90 tab 05/12/19 11/05/19 Rx magnesium oxide 200 - 400 mg PO PM tab 05/20/19 11/05/19 History pen needle, diabetic 32 gauge x #200 ea 05/20/19 10/28/19 Rx 5/32" meloxicam 7.5 mg tablet 3.75 mg PO QAM PRN tab 10/14/19 11/05/19 History metoprolol tartrate 25 mg tablet 12.5 mg PO BID #90 tab 10/14/19 11/05/19 Rx benazepril 20 mg PO QAM 11/05/19 11/05/19 History bumetanide 1 mg PO QAM 11/05/19 11/05/19 History insulin glargine [Lantus Solostar 22 units SUBCUT QAM 11/05/19 11/05/19 History U-100 Insulin] levothyroxine [Euthyrox] 100 mcg PO PM 11/05/19 11/05/19 History ropinirole 1 mg PO PM 11/05/19 11/05/19 History Past Med/Surg History Medical History Diabetes (Chronic) Diastolic heart failure HTN (hypertension) (Chronic) Neuropathy Vitiligo Surgical History Aortic valve replaced H/O lumpectomy Hx of appendectomy S/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 Family History Father Myocardial infarction Unknown Atherosclerosis Brother Diabetes Denies family history of Ovarian cancer Prostate cancer Breast cancer Colorectal cancer Social History Preferred Language: Taiwanese Communication Ability: Effective Economic Specialist Required: No Beliefs That Will Affect Care: None Current Living Situation: Alone Other Information That Helps Us Care for You: No Feels Safe at Home: Yes Safety Concerns: Feels Safe At This Time Smoking Status: Never smoker Do You Dip or Chew Tobacco: No ; Second Hand Exposure: No ; Tobacco Cessation Education Requested by Patient: No Hx Alcohol Use: No Hx Substance Use: No Review of Systems Review of Systems: All systems reviewed & are unremarkable except as noted in HPI & below Physical Exam Constitutional: WD/WN, vitals as above well developed Eyes: PERRL, conjunctivae normal, anicteric sclerae ENMT: Ears: + hearing impairment Neck: trachea midline, no thyromegaly Respiratory: normal respiratory effort Auscultation: + crackles Cardiovascular: Heart Sounds: normal S1, normal S2 and + murmur Palpation: + palpable S4 Vessels: dorsalis pedis pulses present Extremities: + pedal edema Gastrointestinal (Abdomen): normal bowel sounds, soft, nontender, no hepatosplenomegaly Musculoskeletal: no cyanosis or clubbing, extremities motor strength 5/5 Skin: no rashes, warm and dry Neurologic: patellar DTR's 2+ bilat, sensation intact Psychiatric: A+Ox3, euthymic affect Insight: + limited insight Patient is on morning confused and cannot remember the names such as 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 she was previously able to function very well. Lymphatic: no cervical or axillary lymphadenopathy Results & Data Vital Signs (Past 12 Hours) Vital Signs Pulse Pulse Resp BP BP Pulse Ox 11/05/19 15:30 57 L 16 157/56 H 95 11/05/19 15:25 58 L 20 155/57 H 98 11/05/19 15:01 57 L 19 155/57 H 99 11/05/19 12:43 56 L 20 151/57 H 96 Code Status & VTE Plan Code Status Full code VTE Prophylaxis Plan VTE Prophylaxis will be ordered: Yes PG Care Time/CCT Total # of Minutes Spent Total Time Spent with Patient: Total time spent is greater than 50% in coordination of care (as documented) at patient's floor/unit and/or counseling patient: Coding Level of Care Code 43755 Initial Inpt Care Lvl 3 Diagnoses Syncope R55 Syncope type: unspecified Head injury S09.90XA Encounter type: initial encounter Facial contusion S00.83XA Encounter type: initial encounter Elevated troponin R79.89 Chronic diastolic congestive heart failure I50.32 Hypertension I10 Hypothyroidism E03.9 Hearing loss H91.90 Dyslipidemia E78.5 Diabetes mellitus type 2, insulin dependent E11.9; Z79.4 Chronic renal insufficiency N18.9 Carotid bruit R09.89 (1) Syncope Syncope type: unspecified Qualified Code(s): R55 - Syncope and collapse (2) Head injury Encounter type: initial encounter Qualified Code(s): S09.90XA - Unspecified injury of head, initial encounter (3) Facial contusion Encounter type: initial encounter Qualified Code(s): S00.83XA - Contusion of other part of head, initial encounter
[2019-11-05] MEDS ORDERED: MELOXICAM 7.5 MG TAB PO PRN (18:00)
[2019-11-05] MEDS ORDERED: DEXTROSE 50% 50 ML SYRINGE IV PRN (18:00)
[2019-11-05] MEDS ORDERED: GLUCOSE 10 TABS/TUBE PO PRN (18:00)
[2019-11-05] MEDS ORDERED: GLUCAGON FOR INJ 1 MG VIAL SQ PRN (18:00)
[2019-11-05] MEDS ORDERED: ACETAMINOPHEN 325 MG TAB PO PRN (18:00)
[2019-11-05] MEDS ORDERED: DIPHENOXYLATE/ATROPINE 2.5/0.025MG TAB PO PRN (18:00)
[2019-11-05] MEDS ORDERED: MAGNESIUM HYDROXIDE SUSP 30 ML UDC PO PRN (18:00)
[2019-11-05] MEDS ORDERED: POLYETHYLENE (MIRALAX) 17 GM PACK PO PRN (18:00)
[2019-11-05] MEDS: CARBOHYDRATES FOR HYPOGLYCEMIA PO PRN (18:00)
[2019-11-05] MEDS ORDERED: GLUCOSE 40% GEL 15 GM TUBE PO PRN (18:00)
[2019-11-05] MEDS ORDERED: ALUMINUM/MAGNESIUM SUSP 30 ML UDC PO PRN (18:00)
[2019-11-05] MEDS ORDERED: ARTIFICIAL TEARS OP PRN (18:52)
[2019-11-05] MEDS ORDERED: ARTIFICIAL TEARS OP OINT 3.5 GM TUBE OP PRN (18:53)
[2019-11-05] MEDS ORDERED: PHARMACY GLYCEMIC MGMT CONSULT PRN (19:17)
[2019-11-05 19:25] LABS: Troponin I 0.275 ng/ml (0-0.045)
[2019-11-05] MEDS: METOPROLOL TARTRATE 25 MG TAB PO SCH (20:03)
[2019-11-05] MEDS: MAGNESIUM OXIDE 400 MG TAB PO SCH (20:04)
[2019-11-05] MEDS: ASPIRIN 81 MG ECTAB PO SCH (20:04)
[2019-11-05] MEDS: BUMETANIDE 1 MG TAB PO SCH (20:04)
[2019-11-05] MEDS: ATORVASTATIN 20 MG TAB PO SCH (20:05)
[2019-11-05] MEDS: TRIAMCINOLONE ACET 0.1% OINT 15 GM TUBE TOP SCH (20:05)
[2019-11-05] MEDS: ROPINIROLE HCL 1 MG TABLET PO SCH (20:05)
[2019-11-05] MEDS: LEVOTHYROXINE SODIUM 100 MCG TABLET PO SCH (20:05)
[2019-11-05] MEDS: INSULIN ASPART 100 UNITS/ML 3 ML PEN SC SCH ×2 (20:06→21:47)
[2019-11-05] MEDS ORDERED: INSULIN GLARGINE SOLOSTAR 100 UNITS/ML 3 ML PEN SQ SCH (21:00)
[2019-11-05] MEDS ORDERED: FUROSEMIDE 40 MG in SYRINGE 0 ML IV SCH (21:00)
--- NOTE | 2019-11-05 22:22 | Magnetic Resonance Report ---
MR brain wo con HISTORY: 88 years-old Female TIA or possible acute stroke acute strokelike symptoms COMPARISON: Head CT 11/05/2019 TECHNIQUE: Multiplanar multisequence MRI of the brain was obtained without the use of IV contrast FINDINGS: No restricted diffusion to suggest acute or subacute infarct. The midline structures including the co rpus callosum, brainstem, optic chiasm, pituitary and pineal glands appear unremarkable on the sagitt al T1 series. No cerebellar tonsillar herniation. Motion degraded exam. Degenerative changes are note d about the imaged cervical spine. 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 No acute intracrani al hemorrhage, midline shift, abnormal extra-axial collection, hydrocephalus or intracranial mass. Ag e-related involutional changes. To extensive T2/FLAIR hyperintensities are noted throughout the white matter of the cerebral hemispheres. No pathologic blooming artifact on the T2 star series. The major vascular flow voids appear patent. Trace left mastoid effusion. Mild mucosal thickening of the nasal turbinates and ethmoid air cells with marina bullosa. Prior left-sided wedge replacement. Asymmetric dilation of the left superior ophthalmic vein. IMPRESSION: 1. Motion degraded exam without acute intracranial abnormality, specifically there is no evidence of acute or subacute infarct. 2. Age-related involutional changes with extensive T2/FLAIR hyperintensities throughout the white mat ter suggestive of chronic microvascular ischemic disease. 3. Remote infarct of the right frontal lobe. 4. Asymmetric dilation of the left superior ophthalmic vein. This finding can be seen in multiple dis ease entities including ophthalmic vein varix, carotid cavernous fistula, Graves' disease among other etiologies. Correlation with ophthalmic evaluation recommended. ACT 112: Negative or not required by law. The above report was generated using voice recognition software. It may contain grammatical, syntax o r spelling errors. Results electronically sent 11/05/2019 10:21 PM to: New Carter MD Electronically signed by: Ramos Harrell M.D. 11/05/2019 10:21 PM
--- NOTE | 2019-11-05 22:24 | Electrocardiogram Report ---
Test Reason : Blood Pressure : / mmHG Vent. Rate : 052 BPM Atrial Rate : 052 BPM P-R Int : 162 ms QRS Dur : 144 ms QT Int : 528 ms P-R-T Axes : 020 002 148 degrees QTc Int : 491 ms Sinus bradycardia Possible Left atrial enlargement Left bundle branch block Abnormal ECG When compared with ECG of 11-OCT-2018 07:00, No significant change was found Confirmed by Ariel Josue ([id number]) on 11/05/2019 10:24:43 PM Referred By: REFERRED SELF Confirmed By:Ariel Josue
--- NOTE | 2019-11-05 23:04 | Ultrasound Report ---
US carotid doppler BI CLINICAL HISTORY: 88 years-old Female with possible stroke. Acute strokelike symptoms COMPARISON: Brain MRI of same day TECHNIQUE: Multiple real time sonographic images of the carotid bifurcations were obtained assessing wells scale, color Doppler and spectral wave form appearance FINDINGS: RIGHT CAROTID: The peak systolic velocity measured within the right ICA is82 cm/sec. The end diasto lic velocity measured 8.0 cm/sec. The ICA to CCA ratio measured 0.9 which correlates with a stenosis of 0-50%. Moderate mixed plaque of the right carotid bulb and proximal right ICA. LEFT CAROTID: The peak systolic velocity measured within the left ICA is66 cm/sec. The end diastoli c velocity measured 8 cm/sec. The ICA to CCA ratio measured 0.89 which correlates with a stenosis of 0-50%. Moderate mixed plaque of the left carotid bulb left ICA. There is normal antegrade vertebral flow bilaterally. Blood pressure on the right was measured at 152 /55 and on the left was measured at 136/55. IMPRESSION: 1. No hemodynamically significant stenosis. 2. Normal antegrade vertebral flow bilaterally. ACT 112: Negative or not required by law. The above report was generated using voice recognition software. It may contain grammatical, syntax o r spelling errors. Results electronically sent 11/05/2019 11:02 PM to: New Carter MD Electronically signed by: Ramos Harrell M.D. 11/05/2019 11:02 PM
[2019-11-05 23:24] LABS: Appearance Urine Clear (Clear); Bacteria Urine Automated Negative (Negative); Bilirubin Urine Negative (Negative); Blood Urine 1+ (Negative); Color Urine Yellow; Glucose Urine UA Negative (Negative); Ketones Urine Negative (Negative); Leukocyte Esterase Urine Negative (Negative); Nitrite Urine Negative (Negative); Protein Urine Trace (Negative); RBC Urine Automated 0-4 /hpf (0-4); Specific Gravity Urine 1.016 (1.000-1.030); Urobilinogen Urine Negative (Negative)
[2019-11-06] MEDS: LEVOTHYROXINE SODIUM 100 MCG TABLET PO SCH (06:22)
[2019-11-06 07:14] LABS: Basophils # (auto) 0.01 K/uL (0-0.2); Basophils % (auto) 0.1 %; Eosinophils # (auto) 0.18 K/uL (0-0.5); Eosinophils % (auto) 2.2 %; Hematocrit (blood only) 43.4 % (37-47); Immature Granulocytes # (auto) 0.02 K/uL (0.00-0.02); Immature Granulocytes % (auto) 0.2 %; Lymphocytes # (auto) 2.03 K/uL (1.2-3.4); Lymphocytes % (auto) 24.4 %; Mean Corpuscular Hemoglobin 32.3 pg (25-34); Mean Corpuscular Hgb Conc 32.3 g/dL (32-36); Mean Platelet Volume 10.7 fL (7.4-10.4); Monocytes # (auto) 0.87 K/uL (0.11-0.59); Monocytes % (auto) 10.4 %; Neutrophils # (auto) 5.22 K/uL (1.4-6.5); Neutrophils % (auto) 62.7 %; Platelet Count 240 K/uL (130-400); RDW Coefficient of Variation 16.4 % (11.5-14.5); RDW Standard Deviation 60.3 fL (36.4-46.3); Red Blood Count 4.34 M/uL (4.2-5.4); White Blood Count 8.33 K/uL (4.8-10.8)
[2019-11-06 07:25] LABS: INR 1.1 (0.9-1.1); Partial Thromboplastin Ratio 0.9; Prothrombin Time 11.6 Seconds (9.0-12.0)
[2019-11-06 07:46] LABS: Albumin Level 2.9 gm/dl (3.4-5.0); BUN Creatinine Ratio 18.6 (10-20); Calcium 8.4 mg/dl (8.5-10.1); Creatinine Clr Calc Pharmacy 17.9 ml/min; Est GFR (African American) 29.8; Est GFR (Non-African American) 25.7; Potassium 4.3 mmol/L (3.5-5.1)
[2019-11-06 07:48] LABS: Albumin Globulin Ratio 0.8 (0.9-2); Bilirubin,Total 0.6 mg/dl (0.2-1); Globulin 3.6 gm/dl (2.5-4.0); Total Protein 6.5 gm/dl (6.4-8.2)
[2019-11-06 07:55] LABS: Estimated Average Glucose 146 mg/dl; Hemoglobin A1C 6.7 % (4.5-5.6)
[2019-11-06] MEDS: BUMETANIDE 1 MG TAB PO SCH (08:11)
[2019-11-06] MEDS: METOPROLOL TARTRATE 25 MG TAB PO SCH ×2 (08:12→21:00)
[2019-11-06] MEDS: MAGNESIUM OXIDE 400 MG TAB PO SCH (08:12)
[2019-11-06] MEDS: ASPIRIN 81 MG ECTAB PO SCH (08:12)
[2019-11-06] MEDS: CYANOCOBALAMIN 500 MCG TABLET (VITAMIN B-12) PO SCH (08:14)
[2019-11-06] MEDS: CHOLECALCIFEROL 1,000 UNITS 25 MCG TAB PO SCH (08:14)
[2019-11-06] MEDS: CALCIUM 600MG + VIT D 400 IU TAB PO SCH ×2 (08:14→17:00)
[2019-11-06] MEDS: CEROVITE ADV FORMULA TAB PO SCH (08:15)
[2019-11-06] MEDS: FUROSEMIDE 40 MG in SYRINGE 0 ML IV SCH (08:17)
[2019-11-06] MEDS: TRIAMCINOLONE ACET 0.1% OINT 15 GM TUBE TOP SCH ×2 (08:18→21:00)
[2019-11-06] MEDS: INSULIN ASPART 100 UNITS/ML 3 ML PEN SC SCH ×5 (08:18→22:02)
[2019-11-06] MEDS: AZITHROMYCIN 250 MG in DEXTROSE 5% 250 ML IV SCH (09:00)
[2019-11-06] MEDS ORDERED: ENALAPRIL MALEATE 10 MG TAB PO SCH (09:00)
--- NOTE | 2019-11-06 09:28 | Pharmacy Report ---
Glycemic Control Consultation - Date of Service November 06, 2019 - Scope Scope: Glycemic Pharmacist consulted for glycemic control and to write orders per [facility] inpatient glycemic control protocol. - Objective Weight: 55.8 kg Accuchecks BSG (last 24hrs): 11/05/19 11/05/19 11/05/19 12:52 13:10 13:26 Glucose 77 POC Glucose 57 L* 78 11/05/19 11/05/19 11/05/19 14:22 17:06 17:28 Glucose POC Glucose 144 H 62 L* 79 11/05/19 11/06/19 11/06/19 20:52 02:21 06:55 Glucose 66 L POC Glucose 119 H 73 11/06/19 07:21 Glucose POC Glucose 80 Laboratory Data (last 24hrs): 11/05/19 11/06/19 13:10 06:55 Potassium 4.0 4.3 Carbon Dioxide 28 30 Anion Gap 7.0 3.0 Creatinine 1.44 H 1.75 H D Est Cr Clr Drug Dosing 21.8 17.9 HbA1c: Hemoglobin A1c 6.7 % (4.5-5.6) H 11/06/19 06:55 - Recent Pertinent Medications Outpatient Anti-diabetic Regimen: * Lantus 22u QAM * A1c = 6.7 % 11/06/2019 - Assessment & Plan Assessment & Plan: ASSESSMENT: * Ms. Giraldo is an 88yo F type II diabetic. She pw a syncopal episode. PMHx consistent with , HTN, neuropathy, previous NSTEMI, HLD, among others. BSGs since admission have been low despite not receiving any insulin. She is ordered a diet. She is receiving rocephin + doxy. PLAN FOR INPATIENT GLYCEMIC CONTROL: * Basal insulin * none indicated at this juncture since she's been having FBS lows * Bolus insulin - conservative correctional insulin * NovoLog per scale ACHS or Q6hrs while NPO * Goal Range: Low 100 mg/dL - High 140 mg/dL * Correction Factor: 45 mg/dL/unit * Nutritional / Prandial insulin per carb ratio of 1 unit per 15 grams CHO consumed * Please note that the plan above was derived based on current level of insulin resistance and hospital stress. These recommendations are appropriate for inpatient admission only. Plan of care upon discharge will need to be reassessed to avoid potential outpatient hypo/hyperglycemia. Thank you.
--- NOTE | 2019-11-06 10:16 | Cardiology Consultation ---
Date of Consultation November 06, 2019 Assessment & Plan (1) Syncope: There is no definitive evidence of the patient's syncope. In fact, there is no evidence that she actually suffered a fall. Seems to have a head injury, when this occurred or the mechanism of the injury is unknown. The patient has no recollection any fall, syncope or injury. She is not even tender at this site currently. He may not be a contusion but could simply be more of a bruise. 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 She is on both verapamil and metoprolol. Think we could easily stop her verapamil and monitor her conduction as an outpatient. There was no evidence significant pauses or concerning arrhythmia during her period of monitoring here in the hospital. Do not believe she is at significant risk for other malignant arrhythmias. She is known to have preserved LV systolic function which makes the likelihood of malignant ventricular arrhythmias lower. (2) Elevated troponin: Chronically elevated. No current symptoms suggestive acute coronary syndrome. Recent catheterization did not demonstrate any evidence large epicardial vessel disease. She does have some branch vessel disease and a chronically elevated troponin. Do not believe this requires further evaluation at this time. (3) Chronic diastolic congestive heart failure: She seems well compensated on exam. X-ray did not demonstrate pulmonary edema. She has no peripheral edema. She tends to take her diuretic according to how she feels. Occasionally she will double her dose of bumetanide. She should continue to follow low-sodium diet and use her diuretic as necessary. (4) LBBB (left bundle branch block): (5) S/P TAVR (transcatheter aortic valve replacement): History of Present Illness Reason for Consultation: Possible syncope Requesting Physician: Raul Attending Physician: Kofi Treviño MD History of Present Illness The patient is an 88-year-old woman with a history of branch vessel coronary disease, aortic valve disease status post transaortic valve replacement and left bundle branch block who was brought to the emergency room by her daughter due to a presumed contusion on her forehead. There was some concern that the patient suffered a fall at home possibly syncope. However, the patient has little recollection of any event of that nature. She lives by herself. She is visited by her daughter occasionally. Seems that her daughter noticed a bruise on her head. The daughter seems to feel that the mother has been somewhat confused recently. The patient admits to having poor recollection of the past few days. She currently lives by herself. She states that she is less active in the winter she cannot play golf. She does not recall symptoms of dizziness or lightheadedness. She cannot recall any episodes of syncope or presyncope. She cannot recall falling. She did not report injuries at other locations. In fact, she states that her head does not hurt at all in its unknown how she suffered this injury. Allergies Allergy/AdvReac Type Severity Reaction Status Date / Time gabapentin Allergy Verified 11/05/19 16:43 metformin AdvReac Unknown . Verified 11/05/19 15:10 oxycodone AdvReac Unknown HALLUCINATI Verified 11/05/19 15:10 ONS Home Medications Home Medications Medication Instructions Recorded Confirmed Type Ocuvite Adult 50 Plus 1 cap PO QDL 10/10/18 11/05/19 History Systane Nighttime 1 applic OPB DAILY PRN 10/10/18 11/05/19 History aspirin 81 mg PO QDL 10/10/18 11/05/19 History bromfenac 1 drp OPB DAILY 10/10/18 11/05/19 History calcium carbonate [Calcium 600] 600 mg PO QDL 10/10/18 11/05/19 History cholecalciferol (vitamin D3) 2,000 unit PO QDL 10/10/18 11/05/19 History [Vitamin D3] cyanocobalamin (vitamin B-12) 1,000 mcg PO QDL 10/10/18 11/05/19 History [Vitamin B-12] diphenoxylate-atropine [Lomotil] 2 tab PO BID PRN 10/10/18 11/05/19 History atorvastatin 20 mg tablet 20 mg PO PM #90 tab 05/12/19 11/05/19 Rx magnesium oxide 200 - 400 mg PO PM tab 05/20/19 11/05/19 History pen needle, diabetic 32 gauge x #200 ea 05/20/19 10/28/19 Rx 5/32" meloxicam 7.5 mg tablet 3.75 mg PO QAM PRN tab 10/14/19 11/05/19 History metoprolol tartrate 25 mg tablet 12.5 mg PO BID #90 tab 10/14/19 11/05/19 Rx benazepril 20 mg PO QAM 11/05/19 11/05/19 History bumetanide 1 mg PO QAM 11/05/19 11/05/19 History insulin glargine [Lantus Solostar 22 units SUBCUT QAM 11/05/19 11/05/19 History U-100 Insulin] levothyroxine [Euthyrox] 100 mcg PO PM 11/05/19 11/05/19 History ropinirole 1 mg PO PM 11/05/19 11/05/19 History Patient History Medical History Diabetes (Chronic) Diastolic heart failure HTN (hypertension) (Chronic) Neuropathy Vitiligo Surgical History Aortic valve replaced H/O lumpectomy Hx of appendectomy S/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 Family History Father Myocardial infarction Unknown Atherosclerosis Brother Diabetes Denies family history of Ovarian cancer Prostate cancer Breast cancer Colorectal cancer Social History Preferred Language: Japanese Communication Ability: Effective 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 She was conversant and seems to answer questions appropriately but likely has an element of cognitive dysfunction that has not yet been fully characterized. Physical Exam Physical Exam: She is alert and oriented x3. Mood affect appear normal. She answered all questions appropriately. HEENT: Sclerae are anicteric. Pupils are equal and reactive to light and a ccommodation. Extraocular movements were intact. Neuro: Cranial nerves intact Neck: Examination of the submandibular region did not reveal any significant lymphadenopathy. Carotids are palpable bilaterally and free of bruits on auscultation. There was no evidence of jugular venous distention. The thyroid was not enlarged. Lungs: Lungs are clear to auscultation bilaterally. There are no rales wheezes or rhonchi. She has normal respiratory effort without use of accessory muscles. There is normal pulmonary excursion. Cardiac: The rhythm was regular. S1 and crisp S2 were normal. Crescendo systolic murmur. The PMI was not markedly displaced on palpation. Abdomen: The abdomen was soft and nontender. Extremities: Patient has bilateral radial pulses that are equal in intensity. There is no evidence cyanosis or clubbing. There was no evidence of significant peripheral edema bilaterally. Skin: There are no rashes noted on examination today. Results & Data ([facility]) Vital Signs (Past 12 Hours) Vital Signs Temp Pulse Pulse Resp BP Pulse Ox Pulse Ox 11/06/19 09:26 63 11/06/19 09:20 90 11/06/19 08:03 36.3 C L 67 18 155/61 H 90 11/06/19 03:53 36.3 C L 66 146/80 H 95 11/06/19 00:00 91 H 11/05/19 23:28 36.5 C 59 L 122/54 L 92 Laboratory Results Abnormal Lab Results 11/05/19 11/05/19 11/05/19 12:52 13:10 13:10 WBC 10.08 RBC 4.91 Hgb 15.9 Hct 50.2 H MCV 102.2 H MCH 32.4 MCHC 31.7 L RDW Std Deviation 61.1 H RDW Coeff of Tru 16.5 H Plt Count 263 MPV 10.8 H Immature Gran % (Auto) 0.2 Neut % (Auto) 81.1 Lymph % (Auto) 11.8 [place] % (Auto) 6.3 Eos % (Auto) 0.4 Baso % (Auto) 0.2 Immature Gran # (Auto) 0.02 Neut # (Auto) 8.18 H Lymph # (Auto) 1.19 L [place] # (Auto) 0.63 H Eos # (Auto) 0.04 Baso # (Auto) 0.02 ESR PT INR APTT PTT Ratio Sodium 146 H Potassium 4.0 Chloride 112 H Carbon Dioxide 28 Anion Gap 7.0 BUN 29 H Creatinine 1.44 H Est Cr Clr Drug Dosing 21.8 Est GFR ( Amer) 37.7 Est GFR (Non-Af Amer) 32.6 BUN/Creatinine Ratio 20.4 H Glucose 77 POC Glucose 57 L* Estimat Average Glucose Hemoglobin A1c Calcium 8.9 Magnesium 2.4 Total Bilirubin 0.8 AST 59 H ALT 88 H Alkaline Phosphatase 126 H Troponin I 0.299 H* NT-Pro-B Natriuret Pep 84822 H Total Protein 7.3 Albumin 3.4 Globulin 3.9 Albumin/Globulin Ratio 0.9 Lipase 155 TSH 1.570 Urine Color Urine Appearance Urine pH Ur Specific Coleman Urine Protein Urine Glucose (UA) Urine Ketones Urine Blood Urine Nitrite Urine Bilirubin Urine Urobilinogen Ur Leukocyte Esterase Urine WBC (Auto) Urine RBC (Auto) U Hyaline Cast (Auto) U Epithel Cells (Auto) Urine Bacteria (Auto) 11/05/19 11/05/19 11/05/19 13:26 14:22 15:00 WBC RBC Hgb Hct MCV MCH MCHC RDW Std Deviation RDW Coeff of Tru Plt Count MPV Immature Gran % (Auto) Neut % (Auto) Lymph % (Auto) [place] % (Auto) Eos % (Auto) Baso % (Auto) Immature Gran # (Auto) Neut # (Auto) Lymph # (Auto) [place] # (Auto) Eos # (Auto) Baso # (Auto) ESR PT INR APTT PTT Ratio Sodium Potassium Chloride Carbon Dioxide Anion Gap BUN Creatinine Est Cr Clr Drug Dosing Est GFR ( Amer) Est GFR (Non-Af Amer) BUN/Creatinine Ratio Glucose POC Glucose 78 144 H Estimat Average Glucose Hemoglobin A1c Calcium Magnesium Total Bilirubin AST ALT Alkaline Phosphatase Troponin I NT-Pro-B Natriuret Pep Total Protein Albumin Globulin Albumin/Globulin Ratio Lipase TSH Urine Color Yellow Urine Appearance Clear Urine pH 7.0 Ur Specific Coleman 1.015 Urine Protein 1+ H Urine Glucose (UA) Negative Urine Ketones Negative Urine Blood Negative Urine Nitrite Negative Urine Bilirubin Negative Urine Urobilinogen Negative Ur Leukocyte Esterase Trace H Urine WBC (Auto) 1-5 Urine RBC (Auto) 0-4 U Hyaline Cast (Auto) 1-5 U Epithel Cells (Auto) 5-10 H Urine Bacteria (Auto) Negative 11/05/19 11/05/19 11/05/19 17:06 17:28 18:39 WBC RBC Hgb Hct MCV MCH MCHC RDW Std Deviation RDW Coeff of Tru Plt Count MPV Immature Gran % (Auto) Neut % (Auto) Lymph % (Auto) [place] % (Auto) Eos % (Auto) Baso % (Auto) Immature Gran # (Auto) Neut # (Auto) Lymph # (Auto) [place] # (Auto) Eos # (Auto) Baso # (Auto) ESR PT INR APTT PTT Ratio Sodium Potassium Chloride Carbon Dioxide Anion Gap BUN Creatinine Est Cr Clr Drug Dosing Est GFR ( Amer) Est GFR (Non-Af Amer) BUN/Creatinine Ratio Glucose POC Glucose 62 L* 79 Estimat Average Glucose Hemoglobin A1c Calcium Magnesium Total Bilirubin AST ALT Alkaline Phosphatase Troponin I 0.275 H* NT-Pro-B Natriuret Pep 02945 H Total Protein Albumin Globulin Albumin/Globulin Ratio Lipase TSH Urine Color Urine Appearance Urine pH Ur Specific Coleman Urine Protein Urine Glucose (UA) Urine Ketones Urine Blood Urine Nitrite Urine Bilirubin Urine Urobilinogen Ur Leukocyte Esterase Urine WBC (Auto) Urine RBC (Auto) U Hyaline Cast (Auto) U Epithel Cells (Auto) Urine Bacteria (Auto) 11/05/19 11/05/19 11/06/19 20:52 23:05 00:08 WBC RBC Hgb Hct MCV MCH MCHC RDW Std Deviation RDW Coeff of Tru Plt Count MPV Immature Gran % (Auto) Neut % (Auto) Lymph % (Auto) [place] % (Auto) Eos % (Auto) Baso % (Auto) Immature Gran # (Auto) Neut # (Auto) Lymph # (Auto) [place] # (Auto) Eos # (Auto) Baso # (Auto) ESR PT INR APTT PTT Ratio Sodium Potassium Chloride Carbon Dioxide Anion Gap BUN Creatinine Est Cr Clr Drug Dosing Est GFR ( Amer) Est GFR (Non-Af Amer) BUN/Creatinine Ratio Glucose POC Glucose 119 H Estimat Average Glucose Hemoglobin A1c Calcium Magnesium Total Bilirubin AST ALT Alkaline Phosphatase Troponin I 0.312 H* NT-Pro-B Natriuret Pep Total Protein Albumin Globulin Albumin/Globulin Ratio Lipase TSH Urine Color Yellow Urine Appearance Clear Urine pH 6.0 Ur Specific Coleman 1.016 Urine Protein Trace H Urine Glucose (UA) Negative Urine Ketones Negative Urine Blood 1+ H Urine Nitrite Negative Urine Bilirubin Negative Urine Urobilinogen Negative Ur Leukocyte Esterase Negative Urine WBC (Auto) 1-5 Urine RBC (Auto) 0-4 U Hyaline Cast (Auto) 5-10 H U Epithel Cells (Auto) 10-20 H Urine Bacteria (Auto) Negative 11/06/19 11/06/19 11/06/19 02:21 06:55 06:55 WBC 8.33 RBC 4.34 Hgb 14.0 Hct 43.4 MCV 100.0 MCH 32.3 MCHC 32.3 RDW Std Deviation 60.3 H RDW Coeff of Tru 16.4 H Plt Count 240 MPV 10.7 H Immature Gran % (Auto) 0.2 Neut % (Auto) 62.7 Lymph % (Auto) 24.4 [place] % (Auto) 10.4 Eos % (Auto) 2.2 Baso % (Auto) 0.1 Immature Gran # (Auto) 0.02 Neut # (Auto) 5.22 Lymph # (Auto) 2.03 [place] # (Auto) 0.87 H Eos # (Auto) 0.18 Baso # (Auto) 0.01 ESR PT INR APTT PTT Ratio Sodium 145 Potassium 4.3 Chloride 112 H Carbon Dioxide 30 Anion Gap 3.0 BUN 33 H Creatinine 1.75 H D Est Cr Clr Drug Dosing 17.9 Est GFR ( Amer) 29.8 Est GFR (Non-Af Amer) 25.7 BUN/Creatinine Ratio 18.6 Glucose 66 L POC Glucose 73 Estimat Average Glucose Hemoglobin A1c Calcium 8.4 L Magnesium Total Bilirubin 0.6 AST 52 H ALT 78 Alkaline Phosphatase 109 Troponin I NT-Pro-B Natriuret Pep Total Protein 6.5 Albumin 2.9 L Globulin 3.6 Albumin/Globulin Ratio 0.8 L Lipase TSH Urine Color Urine Appearance Urine pH Ur Specific Coleman Urine Protein Urine Glucose (UA) Urine Ketones Urine Blood Urine Nitrite Urine Bilirubin Urine Urobilinogen Ur Leukocyte Esterase Urine WBC (Auto) Urine RBC (Auto) U Hyaline Cast (Auto) U Epithel Cells (Auto) Urine Bacteria (Auto) 11/06/19 11/06/19 11/06/19 06:55 06:55 06:55 WBC RBC Hgb Hct MCV MCH MCHC RDW Std Deviation RDW Coeff of Tru Plt Count MPV Immature Gran % (Auto) Neut % (Auto) Lymph % (Auto) [place] % (Auto) Eos % (Auto) Baso % (Auto) Immature Gran # (Auto) Neut # (Auto) Lymph # (Auto) [place] # (Auto) Eos # (Auto) Baso # (Auto) ESR 15 PT 11.6 INR 1.1 APTT 25.0 PTT Ratio 0.9 Sodium Potassium Chloride Carbon Dioxide Anion Gap BUN Creatinine Est Cr Clr Drug Dosing Est GFR ( Amer) Est GFR (Non-Af Amer) BUN/Creatinine Ratio Glucose POC Glucose Estimat Average Glucose 146 Hemoglobin A1c 6.7 H Calcium Magnesium Total Bilirubin AST ALT Alkaline Phosphatase Troponin I NT-Pro-B Natriuret Pep Total Protein Albumin Globulin Albumin/Globulin Ratio Lipase TSH Urine Color Urine Appearance Urine pH Ur Specific Coleman Urine Protein Urine Glucose (UA) Urine Ketones Urine Blood Urine Nitrite Urine Bilirubin Urine Urobilinogen Ur Leukocyte Esterase Urine WBC (Auto) Urine RBC (Auto) U Hyaline Cast (Auto) U Epithel Cells (Auto) Urine Bacteria (Auto) 11/06/19 07:21 WBC RBC Hgb Hct MCV MCH MCHC RDW Std Deviation RDW Coeff of Tru Plt Count MPV Immature Gran % (Auto) Neut % (Auto) Lymph % (Auto) [place] % (Auto) Eos % (Auto) Baso % (Auto) Immature Gran # (Auto) Neut # (Auto) Lymph # (Auto) [place] # (Auto) Eos # (Auto) Baso # (Auto) ESR PT INR APTT PTT Ratio Sodium Potassium Chloride Carbon Dioxide Anion Gap BUN Creatinine Est Cr Clr Drug Dosing Est GFR ( Amer) Est GFR (Non-Af Amer) BUN/Creatinine Ratio Glucose POC Glucose 80 Estimat Average Glucose Hemoglobin A1c Calcium Magnesium Total Bilirubin AST ALT Alkaline Phosphatase Troponin I NT-Pro-B Natriuret Pep Total Protein Albumin Globulin Albumin/Globulin Ratio Lipase TSH Urine Color Urine Appearance Urine pH Ur Specific Coleman Urine Protein Urine Glucose (UA) Urine Ketones Urine Blood Urine Nitrite Urine Bilirubin Urine Urobilinogen Ur Leukocyte Esterase Urine WBC (Auto) Urine RBC (Auto) U Hyaline Cast (Auto) U Epithel Cells (Auto) Urine Bacteria (Auto) Diagnostic Findings Chest x-ray obtained at the time admission not reveal any evidence of acute cardiopulmonary disease. No pulmonary edema. PG Care Time/CCT Total # of Minutes Spent Total Time Spent with Patient: Total time spent is greater than 50% in coordination of care (as documented) at patient's floor/unit and/or counseling patient: Coding Level of Care Code 85279 Initial Inpt Care Lvl 3 Diagnoses Syncope R55 Syncope type: unspecified Elevated troponin R79.89 Chronic diastolic congestive heart failure I50.32 LBBB (left bundle branch block) I44.7 S/P TAVR (transcatheter aortic valve replacement) Z95.2 (1) Syncope Syncope type: unspecified Qualified Code(s): R55 - Syncope and collapse
[2019-11-06] MEDS ORDERED: INSULIN GLARGINE SOLOSTAR 100 UNITS/ML 3 ML PEN SC STA (12:19)
--- NOTE | 2019-11-06 14:09 | XCELERA ---
[id number] [id number]
--- NOTE | 2019-11-06 15:33 | Hospitalist Progress Note ---
Date of Service November 06, 2019 Assessment & Plan (1) Syncope: Is unclear exactly what happened as a patient has some head injury but no recollection of fall No specific arrhythmias on telemetry Patient was bradycardic and this could have resulted in hypoperfusion Cardiology is seen the patient and is reducing her antihypertensives Patient does appear to be fluid overloaded by proBNP but has no peripheral edema We will continue to monitor in telemetry for another day and follow serial labs We will also request PT OT evaluation (2) Elevated troponin: Chronic left bundle branch block No acute findings on echocardiogram Patient does have chronic elevation of troponin Cardiology has been consulted and has commented that they feel there is no further work-up needed for the troponin Continue to monitor on telemetry (3) Head injury: Patient with small laceration and contusion to right forehead CT head as well as MRI show no acute bleed We will continue to follow Patient with no headache or any pain at the site (4) Hypertension: Patient with bradycardia on admission We will continue metoprolol and hold verapamil and follow pressures as well as h eart rate Continue on telemetry (5) Hypothyroidism: Levothyroxine at home dose (6) Bilateral pleural effusion: Patient with chronic congestive heart failure Bumex has been held and patient has been started on furosemide These were evidenced on CTA of the chest on 10/10/[address] of the chest 11/07/[address] of chest 08/16/2017 Continue diuresis at this time as these have been present for the last 2 years at least. No intervention at this time. Continue to monitor (7) Aortic regurgitation: Status post TVAR 3 years ago No acute change on echocardiogram (8) Diabetes mellitus type 2, insulin dependent: Hemoglobin A1c 6.7 Home regimen includes Lantus 22 units every morning Continue Lantus and patient was sliding scale insulin using NovoLog (9) Chronic renal insufficiency: Currently creatinine is 1.75 Baseline creatinine is 1.4 Follow serial lab (10) Chronic diastolic congestive heart failure: Echocardiogram today with no acute changes Cardiology consulted and following Continue diuresis Please refer to Dr. Treviño's addendum for further recommendations Admission and Anticipated Discharge Date Admission Date: November 05, 2019 Subjective Attending: Dr. Kofi Treviño Is a 88-year-old female that was admitted yesterday for chief complaint of a fall with probable syncope. Patient cannot remember events around a syncopal event. She did have bradycardia on admission. Patient with small laceration and bruise to the right forehead which is currently nonpainful even to palpation per patient. The patient seems very confused at time of my exam. I am unclear at this time whether this is dementia, delirium, or confusion due to new surroundings. Patient states that she lives alone in a single-story condominium. She states that her daughter helps with medications and things around the house but she cannot remember her daughter's name at this time. The patient has no acute complaints. She denies any pain or headache. She has no chest pain or tightness and is unaware of any tachyarrhythmias. Patient's proBNP is elevated but she has no lower extremity edema and cannot recall if she had any edema recently. The patient has no further acute complaints. Review of Systems Review of Systems: All systems reviewed & are unremarkable except as noted in HPI & below Physical Exam Physical Exam: GENERAL : No acute distress but somewhat disoriented EYES: No icterus, gaze conjugate. Pupils equal round and reactive to light NOSE: No evidence of epistaxis. MOUTH: No lesions or candidiasis. No evidence of gingival bleeding NECK: Supple LUNGS: Bibasilar crackles HEART: Regular, rate controlled ABDOMEN: Soft, NT, ND, BS Present EXTREMITIES: No LE edema, pedal pulses intact and equal bilaterally NEURO: Awake and alert but with some confusion. Patient lives alone and cannot recall the last 2 or 3 days. Results & Data ([facility]) Vital Signs (Past 12 Hours) Vital Signs Temp Pulse Pulse Resp BP Pulse Ox Pulse Ox 11/06/19 11:23 52 L 21 138/70 90 11/06/19 09:26 63 11/06/19 09:20 90 11/06/19 08:03 36.3 C L 67 18 155/61 H 90 11/06/19 03:53 36.3 C L 66 146/80 H 95 Laboratory Results 11/06/19 06:55 11/06/19 06:55 INR 1.1 (0.9-1.1) 11/06/19 06:55 Diagnostic Findings US carotid doppler BI CLINICAL HISTORY: 88 years-old Female with possible stroke. Acute strokelike symptoms COMPARISON: Brain MRI of same day TECHNIQUE: Multiple real time sonographic images of the carotid bifurcations were obtained assessing wells scale, color Doppler and spectral wave form appearance FINDINGS: RIGHT CAROTID: The peak systolic velocity measured within the right ICA is82 cm/sec. The end diastolic velocity measured 8.0 cm/sec. The ICA to CCA ratio measured 0.9 which correlates with a stenosis of 0-50%. Moderate mixed plaque of the right carotid bulb and proximal right ICA. LEFT CAROTID: The peak systolic velocity measured within the left ICA is66 cm/sec. The end diastolic velocity measured 8 cm/sec. The ICA to CCA ratio measured 0.89 which correlates with a stenosis of 0-50%. Moderate mixed plaque of the left carotid bulb left ICA. There is normal antegrade vertebral flow bilaterally. Blood pressure on the right was measured at 152/55 and on the left was measured at 136/55. IMPRESSION: 1. No hemodynamically significant stenosis. 2. Normal antegrade vertebral flow bilaterally. ACT 112: Negative or not required by law. The above report was generated using voice recognition software. It may contain grammatical, syntax or spelling errors. Results electronically sent 11/05/2019 11:02 PM to: New Carter MD Electronically signed by: Ramos Harrell M.D. 11/05/2019 11:02 PM MR brain wo con HISTORY: 88 years-old Female TIA or possible acute stroke acute strokelike symptoms COMPARISON: Head CT 11/05/2019 TECHNIQUE: Multiplanar multisequence MRI of the brain was obtained without the use of IV contrast FINDINGS: No restricted diffusion to suggest acute or subacute infarct. The midline structures including the corpus callosum, brainstem, optic chiasm, pituitary and pineal glands appear unremarkable on the sagittal T1 series. No cerebellar tonsillar herniation. Motion degraded exam. Degenerative changes are noted about the imaged cervical spine. 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 No acute intracranial hemorrhage, midline shift, abnormal extra-axial collection, hydrocephalus or intracranial mass. Age-related involutional changes. To extensive T2/FLAIR hyperintensities are noted throughout the white matter of the cerebral hemispheres. No pathologic blooming artifact on the T2 star series. The major vascular flow voids appear patent. Trace left mastoid effusion. Mild mucosal thickening of the nasal turbinates and ethmoid air cells with marina bullosa. Prior left-sided wedge replacement. Asymmetric dilation of the left superior ophthalmic vein. IMPRESSION: 1. Motion degraded exam without acute intracranial abnormality, specifically there is no evidence of acute or subacute infarct. 2. Age-related involutional changes with extensive T2/FLAIR hyperintensities throughout the white matter suggestive of chronic microvascular ischemic disease. 3. Remote infarct of the right frontal lobe. 4. Asymmetric dilation of the left superior ophthalmic vein. This finding can be seen in multiple disease entities including ophthalmic vein varix, carotid cavernous fistula, Graves' disease among other etiologies. Correlation with ophthalmic evaluation recommended. ACT 112: Negative or not required by law. The above report was generated using voice recognition software. It may contain grammatical, syntax or spelling errors. Results electronically sent 11/05/2019 10:21 PM to: New Carter MD Electronically signed by: Ramos Harrell M.D. 11/05/2019 10:[address] cervical spine wo con CLINICAL HISTORY: 88 years-old Female presenting with syncope, fall. TECHNIQUE: Multidetector CT of the cervical spine was performed without the use of intravenous contrast. IV contrast: None. One or more dose lowering techniques were used consistent with the principles of ALARA (as low as reasonably achievable), including automatic exposure control, mA or kV adjustment to individual patient size, and/or use of iterative reconstruction. COMPARISON: Plain radiographs from 2006. CT DOSE (mGy.cm): The estimated cumulative dose is 834.96 mGy.cm. FINDINGS: Tonsorial Artist topogram: Unremarkable. Slightly exaggerated cervical lordosis. Trace anterolisthesis of C5 on C6. Vertebral bodies otherwise maintain normal height and alignment. Multilevel intervertebral disc height loss, most severe at C6-7. Disc ossify complexes noted to varying degrees at several levels most prominently at C6-7, where there is mild posterior spondylosis spurring. Evaluation of the soft tissues of the spinal canal do not demonstrate further effacement of the thecal sac. Upper cervical spine predominant facet arthropathy. This in combination with very degrees of uncovertebral hypertrophy results in osseous neural foraminal narrowing throughout the cervical spine. Moderate degenerative changes of the atlantodental articulation. No acute fracture or subluxation. Visualized portion of the skull base intact. Paraspinal soft tissues within normal limits. Bilateral pleural effusions. IMPRESSION: 1. No acute osseous injury of the cervical spine. 2. Multilevel degenerative changes. 3. Bilateral pleural effusions. ACT 112: Negative or not required by law. Results electronically sent 11/05/2019 2:06 PM to: Licha Clemons, Electronically signed by: Earle Aguilar M.D. 11/05/2019 2:06 PM PG Care Time/CCT Total # of Minutes Spent Total Time Spent with Patient: Total time spent is greater than 50% in coordination of care (as documented) at patient's floor/unit and/or counseling patient: 40 minutes Coding Level of Care Code 14774 Subseq Hosp Care Lvl 2 Diagnoses Syncope R55 Syncope type: unspecified Elevated troponin R79.89 Head injury S09.90XA Encounter type: initial encounter Hypertension I10 Hypothyroidism E03.9 Bilateral pleural effusion J90 Aortic regurgitation I35.1 Diabetes mellitus type 2, insulin dependent E11.9; Z79.4 Chronic renal insufficiency N18.9 Chronic diastolic congestive heart failure I50.32 (1) Syncope Syncope type: unspecified Qualified Code(s): R55 - Syncope and collapse (2) Head injury Encounter type: initial encounter Qualified Code(s): S09.90XA - Unspecified injury of head, initial encounter
[2019-11-06] MEDS: cefTRIAXone SODIUM 2,000 MG in DEXTROSE 5% 50 ML IV SCH (15:46)
[2019-11-06] MEDS: CARBOHYDRATES FOR HYPOGLYCEMIA PO PRN (20:28)
[2019-11-06] MEDS: ATORVASTATIN 20 MG TAB PO SCH (21:00)
[2019-11-06] MEDS: ROPINIROLE HCL 1 MG TABLET PO SCH (21:00)
[2019-11-07] MEDS: LEVOTHYROXINE SODIUM 100 MCG TABLET PO SCH (06:16)
[2019-11-07 06:40] LABS: Basophils # (auto) 0.02 K/uL (0-0.2); Basophils % (auto) 0.2 %; Eosinophils # (auto) 0.16 K/uL (0-0.5); Eosinophils % (auto) 1.9 %; Hematocrit (blood only) 42.3 % (37-47); Hemoglobin 13.7 g/dL (12.0-16.0); Immature Granulocytes # (auto) 0.01 K/uL (0.00-0.02); Immature Granulocytes % (auto) 0.1 %; Lymphocytes # (auto) 2.25 K/uL (1.2-3.4); Lymphocytes % (auto) 27.3 %; Mean Corpuscular Hemoglobin 31.9 pg (25-34); Mean Corpuscular Hgb Conc 32.4 g/dL (32-36); Mean Corpuscular Volume 98.6 fL (80-100); Mean Platelet Volume 10.9 fL (7.4-10.4); Monocytes # (auto) 0.94 K/uL (0.11-0.59); Monocytes % (auto) 11.4 %; Neutrophils # (auto) 4.86 K/uL (1.4-6.5); Neutrophils % (auto) 59.1 %; Platelet Count 227 K/uL (130-400); RDW Coefficient of Variation 16.4 % (11.5-14.5); RDW Standard Deviation 58.5 fL (36.4-46.3); Red Blood Count 4.29 M/uL (4.2-5.4); White Blood Count 8.24 K/uL (4.8-10.8)
[2019-11-07 07:39] LABS: Albumin Globulin Ratio 0.8 (0.9-2); Albumin Level 2.7 gm/dl (3.4-5.0); BUN Creatinine Ratio 21.1 (10-20); Bilirubin,Total 0.6 mg/dl (0.2-1); Calcium 8.7 mg/dl (8.5-10.1); Creatinine Clr Calc Pharmacy 20.6 ml/min; Est GFR (African American) 35.4; Est GFR (Non-African American) 30.5; Globulin 3.3 gm/dl (2.5-4.0)
[2019-11-07 07:40] LABS: Potassium 3.6 mmol/L (3.5-5.1)
[2019-11-07] MEDS: METOPROLOL TARTRATE 25 MG TAB PO SCH ×2 (07:47→21:16)
[2019-11-07] MEDS: CEROVITE ADV FORMULA TAB PO SCH (07:47)
[2019-11-07] MEDS: CHOLECALCIFEROL 1,000 UNITS 25 MCG TAB PO SCH (07:48)
[2019-11-07] MEDS: BUMETANIDE 1 MG TAB PO SCH (07:48)
[2019-11-07] MEDS: MAGNESIUM OXIDE 400 MG TAB PO SCH (07:49)
[2019-11-07] MEDS: CYANOCOBALAMIN 500 MCG TABLET (VITAMIN B-12) PO SCH (07:49)
[2019-11-07] MEDS: CALCIUM 600MG + VIT D 400 IU TAB PO SCH ×2 (07:49→16:09)
[2019-11-07] MEDS: INSULIN ASPART 100 UNITS/ML 3 ML PEN SC SCH ×4 (07:50→21:46)
[2019-11-07] MEDS: TRIAMCINOLONE ACET 0.1% OINT 15 GM TUBE TOP SCH ×2 (07:50→21:46)
[2019-11-07] MEDS: ASPIRIN 81 MG ECTAB PO SCH (07:51)
[2019-11-07] MEDS: FUROSEMIDE 40 MG in SYRINGE 0 ML IV SCH (07:51)
[2019-11-07] MEDS: AZITHROMYCIN 250 MG in DEXTROSE 5% 250 ML IV SCH (07:53)
[2019-11-07] MEDS ORDERED: INSULIN GLARGINE SOLOSTAR 100 UNITS/ML 3 ML PEN SC ONE (09:00)
--- NOTE | 2019-11-07 10:00 | Pharmacy Report ---
Pharmacy Glycemic Short Note 2 - Date of Service November 07, 2019 - Glycemic Short BSG Results (Last 24 hours): 11/06/19 11/06/19 11/06/19 11:35 16:34 20:24 Glucose POC Glucose 245 H 75 65 L* 11/06/19 11/07/19 11/07/19 20:43 06:16 06:34 Glucose 40 L* POC Glucose 97 71 11/07/19 07:32 Glucose POC Glucose 78 ASSESSMENT: * After receiving lantus 20u yesterday (home Rx is 22u) she had some concerning lows this AM. We will back off further to lantus 10u daily. PLAN FOR INPATIENT GLYCEMIC CONTROL: * Basal insulin * Lantus 10u daily * Bolus insulin * NovoLog per scale ACHS or Q6hrs while NPO * Goal Range: Low 100 mg/dL - High 140 mg/dL * Correction Factor: 45 mg/dL/unit * Nutritional / Prandial insulin per carb ratio of 1 unit per 15 grams CHO consumed PLAN FOR DISCHARGE: * Pt endorses frequent lows at home with lantus 22u daily. Prior to d/c I would decrease her AM lantus to 10u daily. Given age and co-morbidities she is un likely to benefit from tight glycemic control
[2019-11-07] MEDS: cefTRIAXone SODIUM 2,000 MG in DEXTROSE 5% 50 ML IV SCH (15:10)
--- NOTE | 2019-11-07 15:31 | Hospitalist Progress Note ---
Date of Service November 07, 2019 Assessment & Plan (1) Syncope: Is unclear exactly what happened as a patient has some head injury but no recollection of fall No specific arrhythmias on telemetry Patient was bradycardic and this could have resulted in hypoperfusion Patient reports that she started feeling "foggy" three weeks ago when she was started on Verapamil 180 and the amlodipine was stopped Currently on Enalapril 20mg with Metoprolol XL 12.5 and feeling better Cardiology is seeing the patient and is adjusting her antihypertensives Continue to follow in telemetry Patient does appear to be fluid overloaded by proBNP but has no peripheral edema PT/OT evaluation (2) Elevated troponin: Chronic left bundle branch block No acute findings on echocardiogram Patient does have chronic elevation of troponin Cardiology has been consulted and has commented that they feel there is no further work-up needed for the troponin Continue to monitor on telemetry (3) Head injury: Patient with small laceration and contusion to right forehead CT head as well as MRI show no acute bleed We will continue to follow Patient with no headache or any pain at the site (4) Hypertension: Patient with bradycardia on admission We will continue metoprolol and hold verapamil and follow pressures as well as heart rate Continue Enalapril 20 and Toprol XL 12.5 Continue on telemetry (5) Hypothyroidism: Levothyroxine at home dose (6) Bilateral pleural effusion: Patient with chronic congestive heart failure Bumex has been held and patient has been started on furosemide These were evidenced on CTA of the chest on 10/10/[address] of the chest 11/07/[address] of chest 08/16/2017 Continue diuresis at this time as these have been present for the last 2 years at least. No intervention at this time. Continue to monitor (7) Aortic regurgitation: Status post TVAR 3 years ago No acute change on echocardiogram (8) Diabetes mellitus type 2, insulin dependent: Hemoglobin A1c 6.7 Home regimen includes Lantus 22 units every morning Continue Lantus and patient was sliding scale insulin using NovoLog (9) Chronic renal insufficiency: Currently creatinine is improved at 1.52 down from 1.75 Baseline creatinine is 1.4 Follow serial labs (10) Chronic diastolic congestive heart failure: Echocardiogram this admission with no acute changes Cardiology consulted and following Continue diuresis Please refer to Dr. Treviño's addendum for further recommendations Admission and Anticipated Discharge Date Admission Date: November 06, 2019 Subjective Attending: Dr. Kofi Treviño Patient seems much more oriented today and more energetic. She is able to maintain some ADLs including placement of bilateral hearing aids. The patient continues to have some lightheadedness and dizziness. Blood pressure has ranged from 10 5-1 58 systolically today. She is afebrile. Electrolytes are generally balanced. Patient denies any fever chills. She has no shortness of breath. She denies any chest pain or awareness of palpitations or tachyarrhythmias. She has no abdominal pain. She admittedly is fatigued. Review of Systems Review of Systems: All systems reviewed & are unremarkable except as noted in HPI & below Physical Exam Physical Exam: GENERAL : No acute distress EYES: No icterus, gaze conjugate NOSE: No evidence of epistaxis MOUTH: No lesions or candidiasis NECK: Supple LUNGS: CTA B/L, no wheezes, rales or rhonchi HEART: Regular, rate controlled ABDOMEN: Soft, NT, ND, BS Present EXTREMITIES: No LE edema, pedal pulses intact NEURO: A&OX3. Results & Data ([facility]) Vital Signs (Past 12 Hours) Vital Signs Temp Pulse Resp BP BP Pulse Ox 11/07/19 11:50 36.3 C L 65 18 158/64 H 90 11/07/19 07:43 36.9 C 62 20 147/64 H 94 11/07/19 03:50 36.4 C L 59 L 18 131/49 L 93 Laboratory Results 11/07/19 06:16 11/07/19 06:16 Diagnostic Findings No new diagnostic imaging PG Care Time/CCT Total # of Minutes Spent Total Time Spent with Patient: Total time spent is greater than 50% in coordination of care (as documented) at patient's floor/unit and/or counseling patient:20 minutes with patient Coding Level of Care Code 47015 Subseq Hosp Care Lvl 2 Diagnoses Syncope R55 Syncope type: unspecified Elevated troponin R79.89 Head injury S09.90XA Encounter type: initial encounter Hypertension I10 Hypothyroidism E03.9 Bilateral pleural effusion J90 Aortic regurgitation I35.1 Diabetes mellitus type 2, insulin dependent E11.9; Z79.4 Chronic renal insufficiency N18.9 Chronic diastolic congestive heart failure I50.32 (1) Syncope Syncope type: unspecified Qualified Code(s): R55 - Syncope and collapse (2) Head injury Encounter type: initial encounter Qualified Code(s): S09.90XA - Unspecified injury of head, initial encounter
[2019-11-07] MEDS: CARBOHYDRATES FOR HYPOGLYCEMIA PO PRN (16:19)
--- NOTE | 2019-11-07 16:36 | XRay Report ---
XR chest 1V portable CLINICAL HISTORY: 88 years-old Female presenting with Acute SOB. TECHNIQUE: Portable upright AP view of the chest was obtained. COMPARISON: 11/05/2019. FINDINGS: Atherosclerosis of the aortic arch. Cardiac silhouette enlarged. There may be mild pulmonary vascular prominence. Surgical clips project over the right hilum. Small right and trace left pleural effusion s. Bibasilar opacity. No pneumothorax. Degenerative changes of the thoracic spine. Chronic right rota tor cuff tear. Upper abdomen normal. IMPRESSION: 1. Cardiomegaly. No advanced congestive change or deshawn pulmonary edema. 2. Small right and trace left layering pleural effusions with bibasilar atelectasis. This is increas ed from prior. ACT 112: Negative or not required by law. Electronically signed by: Earle Aguilar M.D. 11/07/2019 4:34 PM
[2019-11-07] MEDS ORDERED: POTASSIUM CHLORIDE 20 MEQ TABCR PO ONE (17:30)
[2019-11-07] MEDS ORDERED: FUROSEMIDE 40 MG in SYRINGE 0 ML IV ONE (17:30)
[2019-11-07] MEDS: ATORVASTATIN 20 MG TAB PO SCH (21:16)
[2019-11-07] MEDS: ROPINIROLE HCL 1 MG TABLET PO SCH (21:16)
[2019-11-08] MEDS: CARBOHYDRATES FOR HYPOGLYCEMIA PO PRN (05:58)
[2019-11-08] MEDS: LEVOTHYROXINE SODIUM 100 MCG TABLET PO SCH (06:31)
[2019-11-08 06:44] LABS: Basophils # (auto) 0.02 K/uL (0-0.2); Basophils % (auto) 0.3 %; Eosinophils # (auto) 0.21 K/uL (0-0.5); Hematocrit (blood only) 42.1 % (37-47); Hemoglobin 13.6 g/dL (12.0-16.0); Immature Granulocytes # (auto) 0.01 K/uL (0.00-0.02); Immature Granulocytes % (auto) 0.1 %; Lymphocytes # (auto) 1.65 K/uL (1.2-3.4); Lymphocytes % (auto) 23.2 %; Mean Corpuscular Hemoglobin 32.3 pg (25-34); Mean Corpuscular Hgb Conc 32.3 g/dL (32-36); Mean Platelet Volume 11.1 fL (7.4-10.4); Monocytes # (auto) 0.81 K/uL (0.11-0.59); Monocytes % (auto) 11.4 %; Platelet Count 215 K/uL (130-400); RDW Standard Deviation 57.4 fL (36.4-46.3); Red Blood Count 4.21 M/uL (4.2-5.4)
[2019-11-08] MEDS: METOPROLOL TARTRATE 25 MG TAB PO SCH ×2 (07:29→20:38)
[2019-11-08 07:31] LABS: Albumin Globulin Ratio 0.8 (0.9-2); Albumin Level 2.6 gm/dl (3.4-5.0); BUN Creatinine Ratio 22.5 (10-20); Bilirubin,Total 0.4 mg/dl (0.2-1); Calcium 8.7 mg/dl (8.5-10.1); Est GFR (Non-African American) 29.3; Globulin 3.1 gm/dl (2.5-4.0); Potassium 3.8 mmol/L (3.5-5.1); Total Protein 5.7 gm/dl (6.4-8.2)
[2019-11-08] MEDS: MAGNESIUM OXIDE 400 MG TAB PO SCH (07:42)
[2019-11-08] MEDS: CHOLECALCIFEROL 1,000 UNITS 25 MCG TAB PO SCH (07:42)
[2019-11-08] MEDS: CEROVITE ADV FORMULA TAB PO SCH (07:42)
[2019-11-08] MEDS: ASPIRIN 81 MG ECTAB PO SCH (07:42)
[2019-11-08] MEDS: CALCIUM 600MG + VIT D 400 IU TAB PO SCH ×2 (07:43→16:41)
[2019-11-08] MEDS: CYANOCOBALAMIN 500 MCG TABLET (VITAMIN B-12) PO SCH (07:43)
[2019-11-08] MEDS: TRIAMCINOLONE ACET 0.1% OINT 15 GM TUBE TOP SCH ×2 (07:44→20:36)
[2019-11-08] MEDS: INSULIN ASPART 100 UNITS/ML 3 ML PEN SC SCH ×4 (07:47→23:10)
[2019-11-08] MEDS: FUROSEMIDE 40 MG in SYRINGE 0 ML IV SCH ×2 (07:47→07:48)
[2019-11-08] MEDS ORDERED: INSULIN GLARGINE SOLOSTAR 100 UNITS/ML 3 ML PEN SC SCH (09:00)
[2019-11-08] MEDS: AZITHROMYCIN 250 MG in DEXTROSE 5% 250 ML IV SCH (09:00)
--- NOTE | 2019-11-08 10:31 | Pharmacy Report ---
Pharmacy Glycemic Short Note 2 - Date of Service November 08, 2019 - Glycemic Short BSG Results (Last 24 hours): 11/07/19 11/07/19 11/07/19 11:07 16:12 16:14 Glucose POC Glucose 141 H 60 L* 66 L* 11/07/19 11/07/19 11/08/19 16:32 20:15 05:54 Glucose 45 L* POC Glucose 81 89 11/08/19 11/08/19 11/08/19 05:57 06:28 07:19 Glucose POC Glucose 51 L* 122 H 126 H ASSESSMENT/Plan: * Lows continued. Cancel all long acting insulin and loosen correctional insulin PLAN FOR DISCHARGE: * Pt endorses frequent lows at home with lantus 22u daily. I would d/c her lantus, even after only receiving 10u of lantus lows persisted.
--- NOTE | 2019-11-08 15:24 | Hospitalist Progress Note ---
Date of Service November 08, 2019 Assessment & Plan (1) Syncope: Is unclear exactly what happened as a patient has some head injury but no recollection of fall although I suspect hypoglycemia based on hospital data collected No specific arrhythmias on telemetry Patient was bradycardic and this could have resulted in hypoperfusion Patient reports that she started feeling "foggy" three weeks ago when she was started on Verapamil 180 and the amlodipine was stopped Currently on Enalapril 20mg with Metoprolol XL 12.5 and feeling better Cardiology is seeing the patient and is adjusting her antihypertensives Continue to follow in telemetry Patient does appear to be fluid overloaded by proBNP but has no peripheral edema We will discuss treatment plan with Nicolas Vanegas PA-C tomorrow prior to marielle gardner, as he has been managing her outpatient antihypertensives (2) Elevated troponin: Chronic left bundle branch block No acute findings on echocardiogram Patient does have chronic elevation of troponin Cardiology has been consulted and has commented that they feel there is no further work-up needed for the troponin Continue to monitor on telemetry (3) Head injury: Patient with small laceration and contusion to right forehead CT head as well as MRI show no acute bleed Patient continues to be asymptomatic and has no tenderness or pain at the injury site Patient denies headache or change in acute vision (4) Hypertension: Patient with bradycardia on admission We will continue metoprolol and hold verapamil and follow pressures as well as heart rate Continue Enalapril 20 and Toprol XL 12.5 Discussed ongoing outpatient therapy with Nicolas Vanegas PA-C as he manages her meds as an outpatient. Continue on telemetry (5) Hypothyroidism: Levothyroxine at home dose (6) Bilateral pleural effusion: Patient with chronic congestive heart failure Bumex has been held and patient has been started on furosemide Pleural effusion seen on CTA of the chest on 10/10/[address] of the chest 11/07/[address] of chest 08/16/2017 Continue diuresis at this time as these have been present for the last 2 years at least. No intervention at this time. Continue to monitor Review of previous records show that the patient has had multiple thoracentesis in the past as follows: * 10/03/[address] Ricardo for 1 L * 10/02/[address] Ricardo for 600 mL's * 09/27/[address] Ricardo for 950 mL's * 08/19/[address] Angelo for 600 mL's * 08/19/[address] Angelo for 700 mL's All previous labs appear to be transudate of with no malignant cells seen We will continue to monitor and continue to diurese (7) Aortic regurgitation: Status post TVAR 3 years ago No acute change on echocardiogram (8) Diabetes mellitus type 2, insulin dependent: Hemoglobin A1c 6.7 Home regimen includes Lantus 22 units every morning Patient's Lantus basal unit has been reduced to 10 units every morning and patient continues to have episodic hypoglycemia this symptomatic Discussed with pharmacy. Will change Lantus to 4 units twice daily and place her on a sliding scale with NovoLog Anticipate discharge home tomorrow with family who will help her manage her sugars more tightly throughout the day to hopefully avoid hypoglycemic episodes. (9) Chronic renal insufficiency: Currently creatinine is improved at 1.52 down from 1.75 Baseline creatinine is 1.4 Follow serial labs (10) Chronic diastolic congestive heart failure: Echocardiogram this admission with no acute changes Cardiology consulted and following Continue diuresis Admission and Anticipated Discharge Date Admission Date: November 06, 2019 Subjective Attending: Dr. Kofi Treviño Patient is doing much better today. She diuresed well yesterday with her additional dose of Lasix 40 mg. She has been ambulating the hallways and did 4 laps last night without any significant shortness of breath. Confusion seems to be improved. Discussion with her daughter Licha regarding discharge planning. At this point family working on making arrangements to get patient home with supervision 25/03. Patient states that her breathing is better today. She has no leg pain this morning. Her sugars continue to bother her as a have been low and she is symptomatic. She denies any fever chills. No cough. No chest pain or tightness. Review of Systems Review of Systems: All systems reviewed & are unremarkable except as noted in HPI & below Physical Exam Physical Exam: GENERAL : No acute distress EYES: No icterus, gaze conjugate NOSE: No evidence of epistaxis MOUTH: No lesions or candidiasis NECK: Supple LUNGS: Faint bibasilar crackles. No specific rhonchi. No appreciation of bronchospasm. HEART: Regular, rate controlled ABDOMEN: Soft, NT, ND, BS Present EXTREMITIES: No LE edema, pedal pulses intact NEURO: A&OX3 Results & Data ([facility]) Vital Signs (Past 12 Hours) Vital Signs Temp Pulse Pulse Resp BP BP Pulse Ox 11/08/19 15:00 36.4 C L 66 16 148/67 H 95 11/08/19 11:58 36.6 C 60 20 147/67 H 96 11/08/19 08:04 36.5 C 66 22 149/67 H 93 11/08/19 08:00 69 11/08/19 04:39 36.4 C L 73 20 178/67 H 92 Pulse Ox 11/08/19 15:00 11/08/19 11:58 11/08/19 08:04 11/08/19 08:00 93 11/08/19 04:39 Laboratory Results 11/08/19 05:54 11/08/19 05:54 Diagnostic Findings XR chest 1V portable CLINICAL HISTORY: 88 years-old Female presenting with Acute SOB. TECHNIQUE: Portable upright AP view of the chest was obtained. COMPARISON: 11/05/2019. FINDINGS: Atherosclerosis of the aortic arch. Cardiac silhouette enlarged. There may be mild pulmonary vascular prominence. Surgical clips project over the right hilum. Small right and trace left pleural effusions. Bibasilar opacity. No pneumothorax. Degenerative changes of the thoracic spine. Chronic right rotator cuff tear. Upper abdomen normal. IMPRESSION: 1. Cardiomegaly. No advanced congestive change or deshawn pulmonary edema. 2. Small right and trace left layering pleural effusions with bibasilar atelectasis. This is increased from prior. ACT 112: Negative or not required by law. Electronically signed by: Earle Aguilar M.D. 11/07/2019 4:34 PM PG Care Time/CCT Total # of Minutes Spent Total Time Spent with Patient: Total time spent is greater than 50% in coordination of care (as documented) at patient's floor/unit and/or counseling patient: Coding Level of Care Code 56729 Subseq Hosp Care Lvl 2 Diagnoses Syncope R55 Syncope type: unspecified Elevated troponin R79.89 Head injury S09.90XA Encounter type: initial encounter Hypertension I10 Hypothyroidism E03.9 Bilateral pleural effusion J90 Aortic regurgitation I35.1 Diabetes mellitus type 2, insulin dependent E11.9; Z79.4 Chronic renal insufficiency N18.9 Chronic diastolic congestive heart failure I50.32 (1) Syncope Syncope type: unspecified Qualified Code(s): R55 - Syncope and collapse (2) Head injury Encounter type: initial encounter Qualified Code(s): S09.90XA - Unspecified injury of head, initial encounter
[2019-11-08] MEDS ORDERED: INSULIN GLARGINE SOLOSTAR 100 UNITS/ML 3 ML PEN SC ONE (16:00)
[2019-11-08] MEDS: ROPINIROLE HCL 1 MG TABLET PO SCH (20:38)
[2019-11-08] MEDS: ATORVASTATIN 20 MG TAB PO SCH (20:38)
[2019-11-09] MEDS: LEVOTHYROXINE SODIUM 100 MCG TABLET PO SCH (05:52)
[2019-11-09 06:16] LABS: Basophils # (auto) 0.04 K/uL (0-0.2); Basophils % (auto) 0.6 %; Eosinophils # (auto) 0.21 K/uL (0-0.5); Hematocrit (blood only) 42.8 % (37-47); Hemoglobin 14.3 g/dL (12.0-16.0); Immature Granulocytes # (auto) 0.02 K/uL (0.00-0.02); Immature Granulocytes % (auto) 0.3 %; Lymphocytes # (auto) 2.01 K/uL (1.2-3.4); Lymphocytes % (auto) 28.8 %; Mean Corpuscular Hemoglobin 32.7 pg (25-34); Mean Corpuscular Hgb Conc 33.4 g/dL (32-36); Mean Corpuscular Volume 97.9 fL (80-100); Mean Platelet Volume 10.8 fL (7.4-10.4); Monocytes # (auto) 0.85 K/uL (0.11-0.59); Monocytes % (auto) 12.2 %; Neutrophils # (auto) 3.86 K/uL (1.4-6.5); Neutrophils % (auto) 55.1 %; Platelet Count 215 K/uL (130-400); RDW Coefficient of Variation 15.7 % (11.5-14.5); RDW Standard Deviation 56.8 fL (36.4-46.3); Red Blood Count 4.37 M/uL (4.2-5.4); White Blood Count 6.99 K/uL (4.8-10.8)
[2019-11-09 06:55] LABS: Albumin Level 2.7 gm/dl (3.4-5.0); BUN Creatinine Ratio 20.5 (10-20); Calcium 9.1 mg/dl (8.5-10.1); Creatinine Clr Calc Pharmacy 18.3 ml/min; Est GFR (African American) 30.7; Est GFR (Non-African American) 26.5; Potassium 4.1 mmol/L (3.5-5.1)
[2019-11-09 06:58] LABS: Albumin Globulin Ratio 0.8 (0.9-2); Bilirubin,Total 0.5 mg/dl (0.2-1); Globulin 3.5 gm/dl (2.5-4.0); Total Protein 6.2 gm/dl (6.4-8.2)
[2019-11-09 07:10] VITALS: TEMP 97.9
--- NOTE | 2019-11-09 07:14 | XRay Report ---
XR chest 1V portable CLINICAL HISTORY: Pleural effusions dyspnea COMPARISON STUDY: 11/07/2019 FINDINGS: The small bilateral pleural effusions are unchanged. Interval development of a mild increas e in pulmonary vasculature. There is segmental atelectasis left base. Minimal atelectasis right midlu ng. Pulmonary vasculature remains prominent. IMPRESSION: 1. Similar to slight increase in prominence of components of mild congestive failure. 2. Interval development of segmental atelectasis left base. 3. Minimal bilateral pleural effusions considered unchanged. ACT 112: Negative or not required by law. The above report was generated using voice recognition software. It may contain grammatical, syntax or spelling errors. Electronically signed by: Moose Diego M.D. 11/09/2019 7:13 AM
[2019-11-09] MEDS: INSULIN ASPART 100 UNITS/ML 3 ML PEN SC SCH ×2 (08:18→11:46)
[2019-11-09] MEDS: CALCIUM 600MG + VIT D 400 IU TAB PO SCH (08:22)
[2019-11-09] MEDS: CYANOCOBALAMIN 500 MCG TABLET (VITAMIN B-12) PO SCH (08:23)
[2019-11-09] MEDS: MAGNESIUM OXIDE 400 MG TAB PO SCH (08:26)
[2019-11-09] MEDS: CHOLECALCIFEROL 1,000 UNITS 25 MCG TAB PO SCH (08:26)
[2019-11-09] MEDS: ASPIRIN 81 MG ECTAB PO SCH (08:27)
[2019-11-09] MEDS: METOPROLOL TARTRATE 25 MG TAB PO SCH (08:27)
[2019-11-09] MEDS: CEROVITE ADV FORMULA TAB PO SCH (08:27)
[2019-11-09] MEDS: TRIAMCINOLONE ACET 0.1% OINT 15 GM TUBE TOP SCH (08:29)
--- NOTE | 2019-11-09 09:47 | Pharmacy Report ---
Pharmacy Glycemic Short Note 2 - Date of Service November 09, 2019 - Glycemic Short BSG Results (Last 24 hours): 11/08/19 11/08/19 11/08/19 11:27 16:07 20:06 Glucose POC Glucose 186 H 136 H 121 H 11/09/19 11/09/19 11/09/19 01:25 05:43 07:24 Glucose 107 H POC Glucose 147 H 95 OUTPATIENT ANTIDIABETIC REGIMEN: * Lantus 22 units SC daily * A1c: 6.7% (11/06/19) ASSESSMENT: * BSGs ranging 45-186 mg/dL yesterday after receiving 10 units of basal day previous * Patient received 6 units of insulin yesterday (4 of basal and 2 of prandial/correctional) * Fasting BSG this morning is 95 mg/dL - will give 4 units of Lantus this morning and consider Lantus scale for this evening * Antibiotics discontinued yesterday PLAN FOR INPATIENT GLYCEMIC CONTROL: * Basal insulin * Lantus 4 units SQ this morning * Lantus scale this evening (0-4 units based on BSG - see EHR) * Bolus insulin * NovoLog per scale ACHS or Q6hrs while NPO * Goal Range: Low 100 mg/dL - High 140 mg/dL * Correction Factor: 45 mg/dL/unit * No carb coverage PLAN FOR DISCHARGE: * Patient will require significant dose reduction in Lantus upon discharge (based on A1c and inpatient insulin requirements) * Patient only required 4 units of Lantus yesterday - will continue to follow BSGs * A1c is well-controlled - reasonable A1c goal for this patient would be less than 8%
[2019-11-09] MEDS ORDERED: INSULIN GLARGINE SOLOSTAR 100 UNITS/ML 3 ML PEN SC ONE (10:00)
[2019-11-09 11:21] VITALS: PULSE 62; O2SAT 91
[2019-11-09 15:19] VITALS: BP 158/75
--- NOTE | 2019-11-09 16:12 | Discharge Summary ---
Date of Service November 09, 2019 Admission HPI Per Admitting Provider The patient is an 88 years old female with past medical history of TAVR, hypertension, neuropathy, diabetes mellitus type 2 insulin-dependent, diastolic congestive heart failure, hypothyroidism, surgeon syndrome, CKD stage III, left bundle branch block, prior NSTEMI, osteopenia, dyslipidemia, carotid bruit, aortic regurgitation who was brought by EMS to the emergency room s/p syncopal episode at home. Patient complains of persistent hypoglycemia started 1 day ago. The patient reports that she is weak and she has a bruise on her head and does not remember how she got it. The patient's daughter reported that patient is weak and mildly confused in comparison to her baseline. Patient lives by herself and she is able to get around and she is always sharp except for this morning when patient reports that she found herself on the floor and lost memory for everything health that occurred prior to that. Patient states that she was switched from metoprolol to verapamil.initially she was started on verapamil 160 mg daily and then decrease 120 because she could not tolerate. This morning patient took the whole dose of verapamil 120 and that was prior to having the episode of syncope. Patient denies fever, chills, chest pain, shortness of breath, abdominal pain, frequency, urgency. Sodium 146, potassium 4, chloride 112, carbon dioxide 28, anion gap 7, BUN 29, creatinine 1.44, GFR 32.6, glucose 77, recheck glucose was 1 44, 62, 79, hemoglobin A1c from October 08 0.5 calcium 8.9, magnesium 2.4, total bilirubin 0.8, AST 59, ALT 88, alkaline phosphatase 126, troponin 0 0.299, and 0.275, BNP 18,742, 58879, total protein 7.4, albumin 3.4, globulin 3.9, lipase 155, TSH 1.57. Urine yellow, clear, urine pH 7, urine protein 1+, leukocyte Estrace trace, epithelial cells 5-10. Chest x-rays: Nodular infiltrates in the right mid to lower lung. This this in part correlates with the known underlying calcified nodule/possible hamartoma. New nodular infiltrates or atelectasis at the right lung base difficult to exclude given the more extensive abnormality of the current exam in comparison to prior. Cardiomegaly with mild volume overload and congestive changes. No deshawn pulmonary edema. Small bilateral pleural effusions. Head CT: There is no hemorrhage, mass-effect or evidence of acute territorial ischemia at CT criteria. There is a 7 mm indeterminate nodule identified within the left orbit. This is of indeterminate if any clinical significance. Consider nonemergent ophthalmological follow-up. Cervical spine no acute osseous injury of the cervical spine. Multilevel degenerative changes. Bilateral pleural effusion. Blood culture pending x2. Decision was made to admit patient to PCU on telemetry for syncopal episode and concussion and to rule possibly TIA versus stroke. Admission Exam Per Admitting Provider Constitutional: WD/WN, vitals as above well developed Eyes: PERRL, conjunctivae normal, anicteric sclerae ENMT: Ears: + hearing impairment Neck: trachea midline, no thyromegaly Respiratory: normal respiratory effort Auscultation: + crackles Cardiovascular: Heart Sounds: normal S1, normal S2 and + murmur Palpation: + palpable S4 Vessels: dorsalis pedis pulses present Extremities: + pedal edema Gastrointestinal (Abdomen): normal bowel sounds, soft, nontender, no hepatosplenomegaly Musculoskeletal: no cyanosis or clubbing, extremities motor strength 5/5 Skin: no rashes, warm and dry Neurologic: patellar DTR's 2+ bilat, sensation intact Psychiatric: A+Ox3, euthymic affect Insight: + limited insight Patient is on morning confused and cannot remember the names such as 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 she was previously able to function very well. Lymphatic: no cervical or axillary lymphadenopathy Principal Diagnosis Hypoglycemia Syncope Discharge Exam GENERAL : No acute distress EYES: No icterus, gaze conjugate NOSE: No evidence of epistaxis MOUTH: No lesions or candidiasis NECK: Supple LUNGS: CTA B/L, no wheezes, rales or rhonchi HEART: Regular, rate controlled. ABDOMEN: Soft, NT, ND, BS Present EXTREMITIES: No LE edema, pedal pulses intact NEURO: A&OX3 Discharge Data Allergies Allergy/AdvReac Type Severity Reaction Status Date / Time gabapentin Allergy Verified 11/05/19 16:43 metformin AdvReac Unknown . Verified 11/05/19 15:10 oxycodone AdvReac Unknown HALLUCINATI Verified 11/05/19 15:10 ONS Consultations 11/05/19 15:21 ED Decision to Admit Stat 11/05/19 20:16 Consult Cardiology Routine Ordered Studies 11/05/19 13:12 CT head/brain wo con Stat 11/05/19 13:13 CT cervical spine wo con Stat 11/05/19 19:35 MR brain wo con Stat US carotid doppler BI Stat Hospital Course (1) Syncope: Is unclear exactly what happened as a patient has some head injury but no recollection of fall although I suspect hypoglycemia based on hospital data collected No specific arrhythmias on telemetry Patient was bradycardic and this could have resulted in hypoperfusion Patient reports that she started feeling "foggy" three weeks ago when she was started on Verapamil 180 and the amlodipine was stopped Currently on Enalapril 20mg with Metoprolol XL 12.5 and feeling better In addition, patient has been found to be extremely hypoglycemic in the morning. Home dose of Lantus was 22 units every morning. * This has been adjusted to Lantus 8 units every morning with a NovoLog FlexPen sliding scale during the day. I did discuss the medication changes with Nicolas Vanegas PA-C and he will be glad to follow the patient in the outpatient clinic and continue to adjust medications (2) Elevated troponin: Chronic left bundle branch block No acute findings on echocardiogram Patient does have chronic elevation of troponin Cardiology has been consulted and has commented that they feel there is no further work-up needed for the troponin Continue to monitor on telemetry (3) Head injury: Patient with small laceration and contusion to right forehead CT head as well as MRI show no acute bleed (4) Hypertension: Patient with bradycardia on admission We will continue metoprolol and hold verapamil and follow pressures as well as heart rate Continue Enalapril 20 and Toprol XL 12.5 Discussed ongoing outpatient therapy with Nicolas Vanegas PA-C as he manages her meds as an outpatient. (5) Hypothyroidism: Levothyroxine at home dose (6) Bilateral pleural effusion: Patient with chronic congestive heart failure Bumex was held and patient on furosemide during her in hospital stay * Discharged home on her usual dose of Bumex Pleural effusion seen on CTA of the chest on 10/10/[address] of the chest 11/07/[address] of chest 08/16/2017 Continue diuresis at this time as these have been present for the last 2 years at least. No intervention at this time. Continue to monitor Review of previous records show that the patient has had multiple thoracentesis in the past as follows: * 10/03/[address] Ricardo for 1 L * 10/02/[address] Ricardo for 600 mL's * 09/27/[address] Ricardo for 950 mL's * 08/19/[address] Angelo for 600 mL's * 08/19/[address] Angelo for 700 mL's All previous labs appear to be transudate of with no malignant cells seen The pulmonary service will be glad to continue to follow Mrs. Giraldo as an outpatient and provide intervention as needed as she is already established with the outpatient pulmonary office (7) Aortic regurgitation: Status post TVAR 3 years ago No acute change on echocardiogram (8) Diabetes mellitus type 2, insulin dependent: Hemoglobin A1c 6.7 Home regimen includes Lantus 22 units every morning * Change home regimen to Lantus 8 units every morning and NovoLog FlexPen sliding scale insulin during the day Inasmuch as patient had severe hypoglycemia during her hospital stay, we will use the following sliding scale: * 180-220 = 1 unit * 221-260 = 2 units * 261-300 = 3 units * > 300 = [address] Winn's office Patient instructed to continue to keep a log of BSG's Discharge home today with family who will help her manage her sugars more tightly throughout the day to hopefully avoid hypoglycemic episodes. Diabetic education office will call the patient to schedule an outpatient appointment for follow-up (9) Chronic renal insufficiency: Baseline creatinine is 1.4 (10) Chronic diastolic congestive heart failure: Echocardiogram this admission with no acute changes Cardiology consulted and following Continue diuresis at home with Bumex Track weights daily Total Time Total Time Spent Total Time Spent (In Minutes): 60 minutes including discussion with other providers and meeting with family regarding discharge plan Total Time Includes: Examination of the Patient, Discharge Planning, Medication Reconciliation, Communication With Other Providers and Other Discharge Plan Discharge Items Patient Disposition: Home - Home Health Services Reason For Visit: SYNCOPE Discharge Diagnosis: Hypoglycemia Syncope Condition on Discharge: Good Activity: Resume your previous activity Lifting: Gradually increase as tolerated Bathing: No limitations Exercise/Sports: Gradually increase as tolerated Driving/Machine Use: Resume 3 days after discharge Weightbearing: Full weightbearing Non-emergency contact: Primary Care Provider Call non-emergency contact if: you have any medication questions and your sympto ms worsen Follow-up/Referrals: Lottie Winn MD [Primary Care Provider] - Diet: Carb Consistent or DM2 and Heart Healthy Diet Texture: Easy to Chew Addtl Attending Provider Instructions: Insulin as directed Follow up with Dr. Winn within one week Follow up with diabetic education. They will call you with an appointment Pending Studies at Discharge: No Stand-Alone Forms: [facility] Medications and DC Order Prescriptions: New enalapril maleate 10 mg Tablet 20 mg PO DAILY Qty: 30 RF: 0 insulin aspart U-100 [Novolog Flexpen U-100 Insulin] 100 unit/mL (3 mL) Insulin Pen 1 unit SC UD Qty: 1 RF: 0 Lantus Solostar U-100 Insulin 100 unit/mL (3 mL) Insulin Pen 6 unit SC QAM Qty: 1 RF: 0 Continued atorvastatin 20 mg tablet 20 mg PO PM Qty: 90 RF: 1 (DME) pen needle, diabetic [BD Ultra-Fine Yisel Pen Needle] 32 gauge x 5/32" needle See Dose Instructions .ROUTE .MEDSUPPLY Qty: 200 RF: 1 meloxicam 7.5 mg tablet 3.75 mg PO QAM PRN (Reason: for wrists) RF: 0 metoprolol tartrate 25 mg tablet 12.5 mg PO BID Qty: 90 RF: 3 magnesium oxide 400 mg magnesium tablet 200 - 400 mg PO PM RF: 0 cyanocobalamin (vitamin B-12) [Vitamin B-12] 1,000 mcg Tablet 1,000 mcg PO QDL RF: 0 diphenoxylate-atropine [Lomotil] 2.5-0.025 mg Tablet 2 tab PO BID PRN (Reason: Diarrhea) RF: 0 aspirin 81 mg Tablet,Delayed Release (Dr/Ec) 81 mg PO QDL RF: 0 calcium carbonate [Calcium 600] 600 mg calcium (1,500 mg) Tablet 600 mg PO QDL RF: 0 cholecalciferol (vitamin D3) [Vitamin D3] 1,000 unit Tablet 2,000 unit PO QDL RF: 0 Systane Nighttime 94-3 % Ointment 1 applic OPB DAILY PRN (Reason: Dry Eye(S)) RF: 0 Ocuvite Adult 50 Plus 250-5-1 mg Capsule 1 cap PO QDL RF: 0 bromfenac 0.07 % drops 1 drp OPB DAILY RF: 0 ropinirole 1 mg tablet 1 mg PO PM RF: 0 levothyroxine [Euthyrox] 100 mcg tablet 100 mcg PO PM RF: 0 bumetanide 1 mg tablet 1 mg PO QAM RF: 0 Discontinued benazepril 20 mg tablet 20 mg PO QAM RF: 0 Lantus Solostar U-100 Insulin 100 unit/mL (3 mL) insulin pen 22 units subcut QAM RF: 0 Discharge Orders: Discharge Order (Routine); Ordered 11/09/19 Ordered By: Mook Bonner Admission Data Admit Date/Time: 11/06/19 18:02 Attending Provider: Kofi Treviño Admit Provider: [place] Primary Care Provider: Lottie Winn Other Providers: Bernardo Mejía ; Kofi Treviño ; [facility] Other Interventions: Discharge Summary Assessment (RN) Last Done: 11/09/19 15:17 DC Date/Time DO NOT enter until pt leaves facility: 11/09/19 16:21 Supervising Physician Co-Signing Physician Notes I supervised Mook Bonner PA-C on this patient's care. I examined the patient today with him. I discussed the plan of care with him with the plan being as written in his note except for any following changes/exceptions: None. 88yo F w/ hx of DM, CHF who presented with syncope. Possibly due to hypoglycemia as she had multiple lows in the hospital with her home insulin regimen. We have lowered her long-acting as she was getting dragged down overnight and started her on a very simple sliding scale regimen. Also adjusted her HTN regimen as the verapamil seems to possibly have made her "foggy" at home. Has appeared euvolemic this admission, and was discharged home on her usual diuretic dose. Coding Level of Care Code D/C Day Management >30 mins Diagnoses Syncope R55 Syncope type: unspecified Elevated troponin R79.89 Head injury S09.90XA Encounter type: initial encounter Hypertension I10 Hypothyroidism E03.9 Bilateral pleural effusion J90 Aortic regurgitation I35.1 Diabetes mellitus type 2, insulin dependent E11.9; Z79.4 Chronic renal insufficiency N18.9 Chronic diastolic congestive heart failure I50.32 Time Spent (min) 60
[2019-11-09] MEDS ORDERED: INSULIN GLARGINE SOLOSTAR 100 UNITS/ML 3 ML PEN SC SCH (21:00)
[2019-11-10] MEDS ORDERED: INSULIN GLARGINE SOLOSTAR 100 UNITS/ML 3 ML PEN SC SCH (09:00)
== END 2019-11-09 16:21 | disposition home health service (06) | DRG 638 ==
LOC: ED 12:29 → 2S 12:29 → SUATTDRO 15:46 → 2S 16:40

== ENCOUNTER 2019-11-17 12:39 | Observation (INO) ==
[2019-11-17] MEDS ORDERED: SODIUM CHLORIDE 0.9% 500 ML IV ONE (13:35)
[2019-11-17 14:06] LABS: Basophils # (auto) 0.04 K/uL (0-0.2); Basophils % (auto) 0.6 %; Eosinophils # (auto) 0.12 K/uL (0-0.5); Eosinophils % (auto) 1.8 %; Hematocrit (blood only) 43.5 % (37-47); Hemoglobin 13.9 g/dL (12.0-16.0); Immature Granulocytes # (auto) 0.01 K/uL (0.00-0.02); Immature Granulocytes % (auto) 0.2 %; Lymphocytes # (auto) 1.61 K/uL (1.2-3.4); Lymphocytes % (auto) 24.8 %; Mean Platelet Volume 10.8 fL (7.4-10.4); Monocytes # (auto) 0.72 K/uL (0.11-0.59); Monocytes % (auto) 11.1 %; Neutrophils # (auto) 3.99 K/uL (1.4-6.5); Neutrophils % (auto) 61.5 %; Platelet Count 260 K/uL (130-400); RDW Coefficient of Variation 15.8 % (11.5-14.5); RDW Standard Deviation 57.3 fL (36.4-46.3); Red Blood Count 4.35 M/uL (4.2-5.4); White Blood Count 6.49 K/uL (4.8-10.8)
[2019-11-17 14:16] LABS: INR 1.2 (0.9-1.1); Partial Thromboplastin Ratio 0.9; Partial Thromboplastin Time 24.4 Seconds (21.0-31.0); Prothrombin Time 12.2 Seconds (9.0-12.0)
[2019-11-17 14:20] LABS: Albumin Level 3.2 gm/dl (3.4-5.0); BUN Creatinine Ratio 22.7 (10-20); Calcium 8.9 mg/dl (8.5-10.1); Creatinine Clr Calc Pharmacy 17.4 ml/min; Est GFR (African American) 28.8; Est GFR (Non-African American) 24.9; Magnesium 2.4 mg/dl (1.8-2.4); Potassium 4.3 mmol/L (3.5-5.1)
[2019-11-17 14:28] LABS: Appearance Urine Clear (Clear); Bilirubin Urine Negative (Negative); Blood Urine Negative (Negative); Color Urine Yellow; Glucose Urine UA Negative (Negative); Ketones Urine Negative (Negative); Leukocyte Esterase Urine Negative (Negative); Nitrite Urine Negative (Negative); Protein Urine Negative (Negative); Specific Gravity Urine 1.012 (1.000-1.030); Urobilinogen Urine Negative (Negative)
[2019-11-17 14:35] LABS: Albumin Globulin Ratio 0.9 (0.9-2); Bilirubin,Total 0.8 mg/dl (0.2-1); Globulin 3.5 gm/dl (2.5-4.0); Phosphorus 3.8 mg/dl (2.5-4.9); Thyroid Stimulating Hormone 1.65 uIu/ml (0.300-4.500); Total Protein 6.7 gm/dl (6.4-8.2); Troponin I 0.197 ng/ml (0-0.045)
[2019-11-17] MEDS ORDERED: ALBUT/IPRATROP 3MG/0.5MG NEB 3 ML VIAL NEB STA (14:50)
--- NOTE | 2019-11-17 15:07 | XRay Report ---
XR chest 1V portable CLINICAL HISTORY: confusion mental status change COMPARISON STUDY: 11/09/2019 FINDINGS: Unchanging subsegmental atelectasis left base. Mild chronic pleural thickening left lung ba se. Lungs otherwise appear clear. Postoperative changes are again noted overlying the right hilum. There is a mesh stent within the cardiac silhouette. IMPRESSION: Chronic change as described. No acute process. ACT 112: Negative or not required by law. The above report was generated using voice recognition software. It may contain grammatical, syntax or spelling errors. Electronically signed by: Moose Diego M.D. 11/17/2019 3:05 PM
--- NOTE | 2019-11-17 15:28 | Emergency Department Note ---
ED Provider Note NAME: ALEX DOTY AGE: 88 SEX: F ARRIVES VIA: Walk-In INFORMANT: [Patient] [Daughter] ED PROVIDER(S): Bharath Ford MD CHIEF COMPLAINT: Confusion MEDICAL DECISION MAKING: The patient is a pleasant 88-year-old woman with a past medical history of diastolic and systolic heart failure, hypertension, hyperlipidemia, hypothyroidism, h/o AR status post TAVR, IDDM 2 who presents emergency department accompanied by her daughter concern for acutely worsening confusion in setting of being admitted here recently from 11/05-11/08 for syncope and fall. On arrival the patient is pleasantly confused but no acute distress, afebrile stable vital signs. Patient does have some awareness of her severe confusion last night where she was noted to be walking outside at 3 AM in the rain and her robe and slippers looking for her car. Otherwise patient has no focal neuro deficits. She appears clinically dry. A scant intermittent wheeze but is ot herwise clear. EKG demonstrates baseline left bundle branch block without Sgarbossa arteria. Chest x-ray negative for acute process. WBC, H/H and platelets within normal limits. Chemistry without acidosis. Creatinine 1.8 within baseline range in the setting of the patient's CKD. Troponin 0.197 setting of chronic troponin elevation. TSH within normal limits. UA without evidence of infection. CT head negative for acute process Given the patient's worsening confusion that is a significant departure from her baseline reasonable seat for further evaluation with possible repeat MRI (patient had MRI on her last admission showing microvascular disease and a remote frontal infarct). Suspicion that the patient's symptoms are related to vascular dementia given the acute nature of her confusion. Possibly may benefit from PT/OT and placement. Case discussed with Dr. Fuentes, [facility] hospitalist, who evaluate the patient for admission. Triage Nursing notes reviewed and agree them. [Additional history obtained from] [] [Prior medical records reviewed] [] Vital Signs: reviewed and remarkable for hypertension. Differential diagnosis: Infection, hypoglycemia, electrolyte abnormalities, overdose, toxicologic, cardi ac sources, intracerebral event, neurologic, trauma, as well as other pathologies. ER treatment provided: See below. Diagnostics interpreted by me: ECG: NSR, 62 bpm, LBBB, No Sgarbossa criteria. No ectopy, Qtc 481, QRS 140. Similar to 11/05/2019. Cardiac Monitoring: NSR, 62 bpm, No ectopy. Laboratory studies: [See below] [] Imaging studies: [See below] [] Consultation(s): Dr. Fuentes, [facility] hospitalist. HPI: The patient is a pleasant 88-year-old woman with a past medical history of diastolic and systolic heart failure, hypertension, hyperlipidemia, hypothyroidism, h/o AR status post TAVR, IDDM 2 who presents emergency department accompanied by her daughter concern for acutely worsening confusion in setting of being admitted here recently from 11/05-11/08 for syncope and fall. Patient's daughter resports symptoms have waxed and waned and were most severe last night. Restless with sleep/did not sleep. Denies fevers, cough/congestion, n/v/d, urinary symptoms. ROS: See above HPI for pertinent positives & negatives. A total of [10] systems reviewed and were otherwise negative. PAST MEDICAL HISTORY:[See Below] PAST SURGICAL HISTORY:[See Below] FAMILY HISTORY:[See Below] SOCIAL HISTORY:[See Below] HOME MEDICATIONS:[See Below] ALLERGIES:[See Below] VITALS:[See Below] PHYSICAL EXAMINATION: GENERAL: Awake, alert, well-appearing, in no distress, pleasantly confused. HENT: Normocephalic, atraumatic. Oropharynx with dry mucous membranes and ot herwise unremarkable. EYES: Normal conjunctiva. Sclera non-icteric. EOMI. No nystamgus. PEARRL. NECK: Supple. No nuchal rigidity. FROM. No JVD. RESPIRATORY: Clear to auscultation. CARDIAC: Regular rate, normal rhythm. Extremities warm and well perfused. Pulses equal. ABDOMEN: Soft, non-distended. No tenderness to palpation. No rebound or guarding. No masses. RECTAL: Deferred. MUSCULOSKELETAL: Chest examination reveals no tenderness. The back is symmetrical on inspection without obvious abnormality. There is no CVA tenderness to palpation. No joint edema. LOWER EXTREMITIES: Calves are equal size bilaterally and non-tender. No edema. No discoloration. NEURO: Normal sensorium. No sensory or motor deficits noted. 5/5 strength and SILT x 4 extremities and cerebellar function intact including [id number], alternating palms, [id number]. Steady gait. SKIN: No rash or jaundice noted. 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: No Beliefs That Will Affect Care: None Current Living Situation: Alone Current Living Situation Comment: family care Other Information That Helps Us Care for You: No Feels Safe at Home: Yes Safety Concerns: Feels Safe At This Time Smoking Status: Never smoker Second Hand Exposure: No ; Hx Alcohol Use: No Hx Substance Use: No Results & Data Vital Signs Vital Signs - 24 hr 11/17/19 12:45 11/17/19 13:06 11/17/19 13:08 Temperature 36.3 C L Temperature Source Oral Pulse Rate 61 62 61 Pulse Rate [Right Radial] Pulse Rate from SpO2 Sensor 61 60 Pulse Rhythm Regular Pulse Strength Normal Respiratory Rate 20 23 21 Respiratory Effort / Characteristics Non-Labored Spontaneous Respiratory Depth Normal Respiratory Pattern Regular Blood Pressure 143/46 H 136/63 Blood Pressure Mean 78 106 Blood Pressure Position Sitting Pulse Oximetry 92 91 91 Oxygen Delivery Method Room Air Sepsis Recent Fever Within 48 Hours No Sepsis New/Unexplained Change in Mental Status No Sepsis Action Taken by Nursing No Action Required 11/17/19 13:30 11/17/19 13:31 11/17/19 14:00 Temperature Temperature Source Pulse Rate 58 L 58 L 63 Pulse Rate [Right Radial] Pulse Rate from SpO2 Sensor 61 61 Pulse Rhythm Pulse Strength Respiratory Rate 21 19 22 Respiratory Effort / Characteristics Respiratory Depth Respiratory Pattern Blood Pressure 141/69 H Blood Pressure Mean 106 Blood Pressure Position Pulse Oximetry 90 91 Oxygen Delivery Method Sepsis Recent Fever Within 48 Hours Sepsis New/Unexplained Change in Mental Status Sepsis Action Taken by Nursing 11/17/19 14:25 11/17/19 14:30 11/17/19 15:00 Temperature Temperature Source Pulse Rate 59 L 69 Pulse Rate [Right Radial] Pulse Rate from SpO2 Sensor 58 L 69 Pulse Rhythm Pulse Strength Respiratory Rate 19 24 Respiratory Effort / Characteristics Respiratory Depth Respiratory Pattern Blood Pressure Blood Pressure Mean Blood Pressure Position Pulse Oximetry 95 97 95 Oxygen Delivery Method Room Air Room Air Sepsis Recent Fever Within 48 Hours Sepsis New/Unexplained Change in Mental Status Sepsis Action Taken by Nursing 11/17/19 15:17 11/17/19 15:30 11/17/19 16:01 Temperature Temperature Source Pulse Rate 66 75 Pulse Rate [Right Radial] 63 Pulse Rate from SpO2 Sensor 66 75 Pulse Rhythm Pulse Strength Respiratory Rate 20 22 16 Respiratory Effort / Characteristics Non-Labored Spontaneous Respiratory Depth Respiratory Pattern Blood Pressure Blood Pressure Mean Blood Pressure Position Pulse Oximetry 99 93 93 Oxygen Delivery Method Room Air Room Air Room Air Sepsis Recent Fever Within 48 Hours Sepsis New/Unexplained Change in Mental Status Sepsis Action Taken by Nursing 11/17/19 16:31 11/17/19 16:32 Temperature Temperature Source Pulse Rate 71 71 Pulse Rate [Right Radial] Pulse Rate from SpO2 Sensor 71 Pulse Rhythm Pulse Strength Respiratory Rate 22 20 Respiratory Effort / Characteristics Respiratory Depth Respiratory Pattern Blood Pressure 148/64 H Blood Pressure Mean 106 Blood Pressure Position Pulse Oximetry 92 Oxygen Delivery Method Room Air Room Air Sepsis Recent Fever Within 48 Hours Sepsis New/Unexplained Change in Mental Status Sepsis Action Taken by Nursing Laboratory Data Result diagrams: 11/17/19 13:47 11/17/19 13:47 Lab Results 11/17/19 11/17/19 11/17/19 Range/Units 13:47 13:47 13:47 WBC 6.49 (4.8-10.8) K/uL RBC 4.35 (4.2-5.4) M/uL Hgb 13.9 (12.0-16.0) g/dL Hct 43.5 (37-47) % MCV 100.0 (80-100) fL MCH 32.0 (25-34) pg MCHC 32.0 (32-36) g/dL RDW Std Deviation 57.3 H (36.4-46.3) fL RDW Coeff of Tru 15.8 H (11.5-14.5) % Plt Count 260 (130-400) K/uL MPV 10.8 H (7.4-10.4) fL Immature Gran % (Auto) 0.2 % Neut % (Auto) 61.5 % Lymph % (Auto) 24.8 % Emmet % (Auto) 11.1 % Eos % (Auto) 1.8 % Baso % (Auto) 0.6 % Immature Gran # (Auto) 0.01 (0.00-0.02) K/uL Neut # (Auto) 3.99 (1.4-6.5) K/uL Lymph # (Auto) 1.61 (1.2-3.4) K/uL Emmet # (Auto) 0.72 H (0.11-0.59) K/uL Eos # (Auto) 0.12 (0-0.5) K/uL Baso # (Auto) 0.04 (0-0.2) K/uL PT 12.2 H (9.0-12.0) Seconds INR 1.2 H (0.9-1.1) APTT 24.4 (21.0-31.0) Seconds PTT Ratio 0.9 Sodium 145 (136-145) mmol/L Potassium 4.3 (3.5-5.1) mmol/L Chloride 110 H (98-107) mmol/L Carbon Dioxide 29 (21-32) mmol/L Anion Gap 5.0 (3-11) BUN 41 H (7-18) mg/dl Creatinine 1.80 H (0.6-1.2) mg/dl Est Cr Clr Drug Dosing 17.4 ml/min Est GFR ( Amer) 28.8 Est GFR (Non-Af Amer) 24.9 BUN/Creatinine Ratio 22.7 H (10-20) Glucose 218 H (70-99) mg/dl Calcium 8.9 (8.5-10.1) mg/dl Phosphorus 3.8 (2.5-4.9) mg/dl Magnesium 2.4 (1.8-2.4) mg/dl Total Bilirubin 0.8 (0.2-1) mg/dl AST 43 H (15-37) U/L ALT 76 (12-78) U/L Alkaline Phosphatase 157 H (45-117) U/L Troponin I 0.197 H* (0-0.045) ng/ml NT-Pro-B Natriuret Pep (0-1800) pg/ml Total Protein 6.7 (6.4-8.2) gm/dl Albumin 3.2 L (3.4-5.0) gm/dl Globulin 3.5 (2.5-4.0) gm/dl Albumin/Globulin Ratio 0.9 (0.9-2) TSH 1.650 (0.300-4.500) uIu/ml Urine Color Urine Appearance (Clear) Urine pH (4.5-7.5) Ur Specific [place] (1.000-1.030) Urine Protein (Negative) Urine Glucose (UA) (Negative) Urine Ketones (Negative) Urine Blood (Negative) Urine Nitrite (Negative) Urine Bilirubin (Negative) Urine Urobilinogen (Negative) Ur Leukocyte Esterase (Negative) 11/17/19 11/17/19 Range/Units 13:47 13:55 WBC (4.8-10.8) K/uL RBC (4.2-5.4) M/uL Hgb (12.0-16.0) g/dL Hct (37-47) % MCV (80-100) fL MCH (25-34) pg MCHC (32-36) g/dL RDW Std Deviation (36.4-46.3) fL RDW Coeff of Tru (11.5-14.5) % Plt Count (130-400) K/uL MPV (7.4-10.4) fL Immature Gran % (Auto) % Neut % (Auto) % Lymph % (Auto) % Emmet % (Auto) % Eos % (Auto) % Baso % (Auto) % Immature Gran # (Auto) (0.00-0.02) K/uL Neut # (Auto) (1.4-6.5) K/uL Lymph # (Auto) (1.2-3.4) K/uL Emmet # (Auto) (0.11-0.59) K/uL Eos # (Auto) (0-0.5) K/uL Baso # (Auto) (0-0.2) K/uL PT (9.0-12.0) Seconds INR (0.9-1.1) APTT (21.0-31.0) Seconds PTT Ratio Sodium (136-145) mmol/L Potassium (3.5-5.1) mmol/L Chloride (98-107) mmol/L Carbon Dioxide (21-32) mmol/L Anion Gap (3-11) BUN (7-18) mg/dl Creatinine (0.6-1.2) mg/dl Est Cr Clr Drug Dosing ml/min Est GFR ( Amer) Est GFR (Non-Af Amer) BUN/Creatinine Ratio (10-20) Glucose (70-99) mg/dl Calcium (8.5-10.1) mg/dl Phosphorus (2.5-4.9) mg/dl Magnesium (1.8-2.4) mg/dl Total Bilirubin (0.2-1) mg/dl AST (15-37) U/L ALT (12-78) U/L Alkaline Phosphatase (45-117) U/L Troponin I (0-0.045) ng/ml NT-Pro-B Natriuret Pep [id number] H (0-1800) pg/ml Total Protein (6.4-8.2) gm/dl Albumin (3.4-5.0) gm/dl Globulin (2.5-4.0) gm/dl Albumin/Globulin Ratio (0.9-2) TSH (0.300-4.500) uIu/ml Urine Color Yellow Urine Appearance Clear (Clear) Urine pH 7.0 (4.5-7.5) Ur Specific [place] 1.012 (1.000-1.030) Urine Protein Negative (Negative) Urine Glucose (UA) Negative (Negative) Urine Ketones Negative (Negative) Urine Blood Negative (Negative) Urine Nitrite Negative (Negative) Urine Bilirubin Negative (Negative) Urine Urobilinogen Negative (Negative) Ur Leukocyte Esterase Negative (Negative) Administered Medications Artificial Tears (Artificial Tears) 1 drops OPB HS ISIAH Stop: 12/17/19 20:59 Last Admin: 11/17/19 21:34 Dose: 1 drops Documented by: [id number] Atorvastatin Calcium (Lipitor) 20 mg PO HS ISIAH Stop: 12/17/19 20:59 Last Admin: 11/17/19 21:35 Dose: 20 mg Documented by: [id number] Heparin Sodium (Porcine) (Heparin Sodium (Porcine)) 5,000 units SQ Q12 ISIAH Stop: 12/17/19 20:59 Last Admin: 11/17/19 21:39 Dose: 5,000 units Documented by: [id number] Cosigned by: [id number] Insulin Aspart (Novolog Flexpen) 0 units SC ACHS ISIAH Stop: 12/17/19 20:59 Last Admin: 11/17/19 21:39 Dose: 1 units Documented by: [id number] Cosigned by: [id number] Levothyroxine Sodium (Synthroid) 100 mcg PO PM ISIAH Stop: 12/17/19 20:59 Last Admin: 11/17/19 21:34 Dose: 100 mcg Documented by: [id number] Magnesium Oxide (Mag-Ox) 400 mg PO Q2D@2100 ISIAH Stop: 12/17/19 20:59 Last Admin: 11/17/19 21:35 Dose: 400 mg Documented by: [id number] Metoprolol Tartrate (Lopressor) 12.5 mg PO BID ISIAH Stop: 12/17/19 20:59 Last Admin: 11/17/19 21:34 Dose: 12.5 mg Documented by: [id number] Ropinirole HCl (Requip) 1 mg PO PM ISIAH Stop: 12/17/19 20:59 Last Admin: 11/17/19 21:35 Dose: 1 mg Documented by: [id number] Discontinued Medications Albuterol (Duoneb) 3 ml NEB NOW STA Stop: 11/17/19 14:51 Last Admin: 11/17/19 15:16 Dose: 3 ml Documented by: [id number] Sodium Chloride (Nss) 500 mls @ 999 mls/hr IV .Q31M ONE Stop: 11/17/19 14:05 Last Infusion: 11/17/19 14:52 Dose: 0 mls/hr Documented by: [id number] Admin: 11/17/19 14:20 Dose: 999 mls/hr Documented by: [id number] Imaging Data Radiologist's Impression: XR chest 1V portable CLINICAL HISTORY: confusion mental status change COMPARISON STUDY: 11/09/2019 FINDINGS: Unchanging subsegmental atelectasis left base. Mild chronic pleural th ickening left lung base. Lungs otherwise appear clear. Postoperative changes are again noted overlying the right hilum. There is a mesh stent within the cardiac silhouette. IMPRESSION: Chronic change as described. No acute process. ACT 112: Negative or not required by law. ----- CT SCAN OF THE BRAIN WITHOUT IV CONTRAST CLINICAL HISTORY: Strokelike symptoms. COMPARISON STUDY: CT of the brain dated 11/05/2019. TECHNIQUE: Unenhanced axial CT scan of the brain is performed from the vertex to the skull base. A dose lowering technique was utilized adhering to the principles of ALARA. CT DOSE: 537.48 mGy.cm FINDINGS: Brain parenchyma: Right frontal encephalomalacia is unchanged and consistent with a remote infarct. There are age-related involutional changes noting mild to moderate subcortical and periventricular microangiopathic change. There is no hemorrhage, mass effect, or evidence of acute territorial ischemia by CT criteria. Schneider-white matter differentiation is preserved. No extra-axial fluid collection is seen. Ventricles, sulci, cisterns: Prominent secondary to involutional change. Intracranial vasculature: There is atherosclerotic calcification of the cavernous carotid and vertebral arteries. Calvarium: Unremarkable. Sinuses and mastoids: The visualized paranasal sinuses are clear. The mastoid air cells are well pneumatized. Orbits: The bony orbits are grossly intact. There is a left ocular lens implant. IMPRESSION: There is no hemorrhage, mass effect, or evidence of acute territorial ischemia by CT criteria. ACT 112: Negative or not required by law. Discharge Plan Visit Data *Final* Discharge Date/Time: 11/17/19 18:05 Chief Complaint: Neuro Symptoms/Deficit Stated Complaint: CONFUSED,FALLING ASLEEP,NEURO SYMPTOMS,WHEEZING ED Provider: Bharath Ford Discharge Problem: Intermittent confusion, LBBB (left bundle branch block), Change in mental status, History of cerebrovascular accident, Chronic renal insufficiency, Elevated troponin Patient Disposition: Admitted As Inpatient Discharge Instructions Interventions: ED Discharge Assessment Last Done: 11/17/19 18:05 Meds Home Medications and Allergies Home Medications Medication Instructions Recorded Confirmed Type Ocuvite Adult 50 Plus 1 cap PO DAILY@1400 10/10/18 11/17/19 History Systane Nighttime 1 applic OPB DAILY PRN 10/10/18 11/17/19 History aspirin 81 mg PO DAILY@1400 10/10/18 11/17/19 History bromfenac 1 drp OPB QAM 10/10/18 11/17/19 History calcium carbonate [Calcium 600] 600 mg PO DAILY@1400 10/10/18 11/17/19 History cholecalciferol (vitamin D3) 2,000 unit PO DAILY@1400 10/10/18 11/17/19 History [Vitamin D3] cyanocobalamin (vitamin B-12) 1,000 mcg PO DAILY@1400 10/10/18 11/17/19 History [Vitamin B-12] diphenoxylate-atropine [Lomotil] 2 tab PO BID PRN 10/10/18 11/17/19 History magnesium oxide 200 - 400 mg PO PM tab 05/20/19 11/17/19 History meloxicam 7.5 mg tablet 3.75 mg PO QAM PRN tab 10/14/19 11/17/19 History bumetanide 1 mg PO QAM 11/05/19 11/17/19 History levothyroxine [Euthyrox] 100 mcg PO PM 11/05/19 11/17/19 History ropinirole 1 mg PO PM 11/05/19 11/17/19 History atorvastatin 20 mg PO HS 11/17/19 11/17/19 History benazepril DAILY 11/17/19 History carboxymethylcellulose sodium 1 drp OPB HS 11/17/19 11/17/19 History [Refresh Liquigel] enalapril maleate 20 mg PO QAM 11/17/19 11/17/19 History Allergies Allergy/AdvReac Type Severity Reaction Status Date / Time gabapentin Allergy Verified 11/17/19 13:48 metformin AdvReac Unknown . Verified 11/17/19 13:48 oxycodone AdvReac Unknown HALLUCINATI Verified 11/17/19 13:48 ONS Discharge Problem: Change in mental status Qualifiers: Altered mental status type: unspecified Qualified Code(s): R41.82 - Altered mental status, unspecified
--- NOTE | 2019-11-17 16:02 | CT Scan Report ---
CT SCAN OF THE BRAIN WITHOUT IV CONTRAST CLINICAL HISTORY: Strokelike symptoms. COMPARISON STUDY: CT of the brain dated 11/05/2019. TECHNIQUE: Unenhanced axial CT scan of the brain is performed from the vertex to the skull base. A do se lowering technique was utilized adhering to the principles of ALARA. CT DOSE: 537.48 mGy.cm FINDINGS: Brain parenchyma: Right frontal encephalomalacia is unchanged and consistent with a remote infarct. T here are age-related involutional changes noting mild to moderate subcortical and periventricular mi croangiopathic change. There is no hemorrhage, mass effect, or evidence of acute territorial ischemia by CT criteria. Schneider-white matter differentiation is preserved. No extra-axial fluid collection is s een. Ventricles, sulci, cisterns: Prominent secondary to involutional change. Intracranial vasculature: There is atherosclerotic calcification of the cavernous carotid and vertebr al arteries. Calvarium: Unremarkable. Sinuses and mastoids: The visualized paranasal sinuses are clear. The mastoid air cells are well pneu matized. Orbits: The bony orbits are grossly intact. There is a left ocular lens implant. IMPRESSION: There is no hemorrhage, mass effect, or evidence of acute territorial ischemia by CT [place]. ACT 112: Negative or not required by law. Electronically signed by: Mook Carpio M.D. 11/17/2019 4:01 PM
--- NOTE | 2019-11-17 16:20 | History & Physical Report ---
Date of Service November 17, 2019 Assessment & Plan (1) Confusion: It is unclear if this represents advancing senile dementia, either Alzheimer's or vascular versus possible encephalopathy. Patient has no obvious signs of infection or other underlying cause for delirium. For now, will repeat MRI of the brain. Consider EEG. Will ask neurology to evaluate further recommendations. If unable to determine cause of confusion, patient may require placement in the short-term. (2) Type 2 diabetes mellitus with diabetic neuropathy: Patient has significant diabetes mellitus with labile blood sugars. We will continue medications as ordered along with sliding scale. (3) Hypertension: Blood pressure mildly elevated, continue outpatient medications as ordered. History of Present Illness Primary Care Provider: Lottie Winn MD This is an 88-year-old female with past medical history of diabetes, chronic diastolic CHF, and a remote CVA that presents today with a chief complaint of confusion. Patient is unable to provide much history but the patient's daughter is at bedside. Daughter relates that patient was previously very mentally sound without any issues with confusion. She notes that this may have changed approximately 1 month ago when her medication was changed from amlodipine to verapamil by cardiology. (I see this change was made by Nicolas Vanegas on 10/14/2019). At that time as she felt that the patient became much more foggy and had periods of confusion. She tells me that the patient is no longer on this medication. In addition, the patient was seen in the emergency room on 11/04 after being found to be significantly confused by the family in her home. The daughter tells me the patient was staring off into the distance and was essentially unresponsive. At that time, patient's blood sugar was only 45. She was admitted and treated for hypoglycemia and to rule out possible CVA. Although she had a mildly elevated troponin, it was noted to be chronic without any trending and was otherwise felt to be stable by cardiology. Daughter became more concerned over the past 3 days. While the patient seemed to be okay mentally after discharge, she had a significant decline more recently. She seems to get very lethargic and falls asleep during conversations or meals. She does have periods where she seems very forgetful and confused. At one point, the patient was caught wandering around outside in the middle of the night in her pajamas looking for her car keys. They feel this is worsened quite a bit and cannot explain it, which is what prompted the family to bring the patient for further evaluation. Of note, the patient did have an MRI of the brain on 11/04. Previous admission. There was a question of a remote infarct of the right frontal lobe which the family was unaware of. There were no new CVAs or other significant findings. Allergies Allergy/AdvReac Type Severity Reaction Status Date / Time gabapentin Allergy Verified 11/17/19 13:48 metformin AdvReac Unknown . Verified 11/17/19 13:48 oxycodone AdvReac Unknown HALLUCINATI Verified 11/17/19 13:48 ONS Home Medications Home Medications Medication Instructions Recorded Confirmed Type Ocuvite Adult 50 Plus 1 cap PO DAILY@1400 10/10/18 11/17/19 History Systane Nighttime 1 applic OPB DAILY PRN 10/10/18 11/17/19 History aspirin 81 mg PO DAILY@1400 10/10/18 11/17/19 History bromfenac 1 drp OPB QAM 10/10/18 11/17/19 History calcium carbonate [Calcium 600] 600 mg PO DAILY@1400 10/10/18 11/17/19 History cholecalciferol (vitamin D3) 2,000 unit PO DAILY@1400 10/10/18 11/17/19 History [Vitamin D3] cyanocobalamin (vitamin B-12) 1,000 mcg PO DAILY@1400 10/10/18 11/17/19 History [Vitamin B-12] diphenoxylate-atropine [Lomotil] 2 tab PO BID PRN 10/10/18 11/17/19 History magnesium oxide 200 - 400 mg PO PM tab 05/20/19 11/17/19 History pen needle, diabetic 32 gauge x #200 ea 05/20/19 11/16/19 Rx 5/32" meloxicam 7.5 mg tablet 3.75 mg PO QAM PRN tab 10/14/19 11/17/19 History metoprolol tartrate 25 mg tablet 12.5 mg PO BID #90 tab 10/14/19 11/17/19 Rx bumetanide 1 mg PO QAM 11/05/19 11/17/19 History levothyroxine [Euthyrox] 100 mcg PO PM 11/05/19 11/17/19 History ropinirole 1 mg PO PM 11/05/19 11/17/19 History insulin aspart U-100 [Novolog 1 unit SC UD #1 device 11/09/19 11/17/19 Rx Flexpen U-100 Insulin] insulin glargine [Lantus Solostar 6 unit SC QAM #1 device 11/09/19 11/17/19 Rx U-100 Insulin] atorvastatin 20 mg PO HS 11/17/19 11/17/19 History carboxymethylcellulose sodium 1 drp OPB HS 11/17/19 11/17/19 History [Refresh Liquigel] enalapril maleate 20 mg PO QAM 11/17/19 11/17/19 History Past Med/Surg History Social History Preferred Language: [place] Communication Ability: Impaired Official Court Interpreter Required: No Beliefs That Will Affect Care: None Current Living Situation: Alone Feels Safe at Home: Yes Smoking Status: Never smoker Second Hand Exposure: No ; Hx Alcohol Use: No Hx Substance Use: No Review of Systems Constitutional: no fever, no chills, no weakness, no weight loss and no weight gain Eyes: as per Subjective / HPI Respiratory: no cough, no chest congestion, no dyspnea and no dyspnea on exertion Cardiovascular: no chest pain, no orthopnea, no palpitations, no lightheadedness and no edema Gastrointestinal: no abdominal pain, no nausea, no vomiting, no constipation and no diarrhea/loose stools Genitourinary: no dysuria, no difficulty urinating, no urinary frequency, no urinary hesitancy, no urinary urgency and no flank pain Musculoskeletal: no back pain, no neck pain, no joint pain, no stiffness and no myalgia Integumentary: no rash Neurologic: + abnormal movements; no gait abnormality, no unsteadiness, no falls and no generalized weakness Psychiatric: + confusion and + problem reported Physical Exam Constitutional: + altered mental status and cooperative; no acute distress Neck: trachea midline, no thyromegaly Respiratory: normal respiratory effort Auscultation: lungs clear to auscultation bilaterally; no crackles, no rales, no rhonchi and no wheezes Cardiovascular: Rate/Rhythm: regular rate and regular rhythm Heart Sounds: normal S1 and normal S2 Gastrointestinal (Abdomen): Inspection/Auscultation: abdomen normal to inspection Percussion/Palpation: abdomen soft; abdomen nontender, no guarding, abdomen not rigid and no hepatosplenomegaly Skin: no rashes, warm and dry Neurologic: PERRL, EOMI, accommodation nl, no face palsy, no dysarthria Psychiatric: Orientation: alert and oriented to person Results & Data Vital Signs (Past 12 Hours) Vital Signs Temp Pulse Pulse Resp BP Pulse Ox 11/17/19 15:30 66 22 93 11/17/19 15:17 63 20 99 11/17/19 15:00 69 24 95 11/17/19 14:30 59 L 19 97 11/17/19 14:25 95 11/17/19 14:00 63 22 11/17/19 13:31 58 L 19 91 11/17/19 13:30 58 L 21 141/69 H 90 11/17/19 13:08 61 21 91 11/17/19 13:06 62 23 136/63 91 11/17/19 12:45 36.3 C L 61 20 143/46 H 92 Laboratory Results WBCs of 6.4, hemoglobin 13.9, hematocrit 43.5, platelet 260. INR 1.2. Sodium 145, potassium 4.3, chloride 110, carbon dioxide of 29, creatinine of 1.8 with a BUN of 41. Glucose of 218. AST of 43 ALT of 76, bilirubin 0.8. Alk phos 157. Trop[place] 0[place] [address]. UA is negative. Diagnostic Findings CT SCAN OF THE BRAIN WITHOUT IV CONTRAST CLINICAL HISTORY: Strokelike symptoms. COMPARISON STUDY: CT of the brain dated 11/05/2019. TECHNIQUE: Unenhanced axial CT scan of the brain is performed from the vertex to the skull base. A dose lowering technique was utilized adhering to the principles of ALARA. CT DOSE: 537.48 mGy.cm FINDINGS: Brain parenchyma: Right frontal encephalomalacia is unchanged and consistent with a remote infarct. There are age-related involutional changes noting mild to moderate subcortical and periventricular microangiopathic change. There is no hemorrhage, mass effect, or evidence of acute territorial ischemia by CT criteria. Schneider-white matter differentiation is preserved. No extra-axial fluid collection is seen. Ventricles, sulci, cisterns: Prominent secondary to involutional change. Intracranial vasculature: There is atherosclerotic calcification of the cavernous carotid and vertebral arteries. Calvarium: Unremarkable. Sinuses and mastoids: The visualized paranasal sinuses are clear. The mastoid air cells are well pneumatized. Orbits: The bony orbits are grossly intact. There is a left ocular lens implant. IMPRESSION: There is no hemorrhage, mass effect, or evidence of acute territorial ischemia by CT criteria. --- XR chest 1V portable CLINICAL HISTORY: confusion mental status change COMPARISON STUDY: 11/09/2019 FINDINGS: Unchanging subsegmental atelectasis left base. Mild chronic pleural thickening left lung base. Lungs otherwise appear clear. Postoperative changes are again noted overlying the right hilum. There is a mesh stent within the cardiac silhouette. IMPRESSION: Chronic change as described. No acute process. PG Care Time/CCT Total # of Minutes Spent Total Time Spent with Patient: Total time spent is greater than 50% in coordination of care (as documented) at patient's floor/unit and/or counseling patient: Coding Level of Care Code 49056 OBS Care - Level 3 Diagnoses Confusion R41.0 Type 2 diabetes mellitus with diabetic neuropathy E11.40 Hypertension I10
[2019-11-17] MEDS ORDERED: POLYETHYLENE (MIRALAX) 17 GM PACK PO PRN (18:16)
[2019-11-17] MEDS ORDERED: WHITE PETROLATUM MINERAL OIL OPB PRN (18:16)
[2019-11-17] MEDS ORDERED: DEXTROSE 50% 50 ML SYRINGE IV PRN (18:16)
[2019-11-17] MEDS ORDERED: ACETAMINOPHEN 325 MG TAB PO PRN (18:16)
[2019-11-17] MEDS ORDERED: DIPHENOXYLATE/ATROPINE 2.5/0.025MG TAB PO PRN (18:16)
[2019-11-17] MEDS ORDERED: ONDANSETRON INJ 2 MG/ML 2 ML VIAL IV PRN (18:16)
[2019-11-17] MEDS ORDERED: GLUCOSE 10 TABS/TUBE PO PRN (18:16)
[2019-11-17] MEDS ORDERED: CARBOHYDRATES FOR HYPOGLYCEMIA PO PRN (18:16)
[2019-11-17] MEDS ORDERED: GLUCAGON FOR INJ 1 MG VIAL SQ PRN (18:16)
[2019-11-17] MEDS ORDERED: MELOXICAM 7.5 MG TAB PO PRN (18:16)
[2019-11-17] MEDS ORDERED: GLUCOSE 40% GEL 15 GM TUBE PO PRN (18:16)
[2019-11-17] MEDS ORDERED: PHARMACY GLYCEMIC MGMT CONSULT PRN (18:35)
--- NOTE | 2019-11-17 20:06 | Magnetic Resonance Report ---
MRI OF THE BRAIN WITHOUT CONTRAST CLINICAL HISTORY: confusion COMPARISON STUDY: 11/05/2019, head CT dated 11/17/2019 FINDINGS: Sagittal T1, axial diffusion, proton density and T2 weighted axial, coronal FLAIR, and axial T1-weigh edilma images were acquired. No intra or extra-axial mass lesions are visualized Axial diffusion-weighted images reveal no evidence of acute or subacute infarction. There is no evidence of ventricular dilatation. Proton density T2-weighted and FLAIR images reveal scattered foci of increased T2 signal within the w ricco matter, likely on a small vessel basis. There is an old right frontal lobe infarct. There is an old left cerebellar infarct. There are no abnormal flow voids. IMPRESSION: 1. No significant change from the prior November 04 study. 2. No evidence of acute or subacute infarction 3. No evidence of intracranial mass in this noncontrast study 4. 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 Electronically signed by: Josh Simon M.D. 11/17/2019 8:05 PM
[2019-11-17] MEDS ORDERED: ROPINIROLE HCL 1 MG TABLET PO SCH (21:00)
[2019-11-17] MEDS ORDERED: ARTIFICIAL TEARS OPB SCH (21:00)
[2019-11-17] MEDS ORDERED: MAGNESIUM OXIDE 400 MG TAB PO SCH (21:00)
[2019-11-17] MEDS: METOPROLOL TARTRATE 25 MG TAB PO SCH (21:34)
[2019-11-17] MEDS: LEVOTHYROXINE SODIUM 100 MCG TABLET PO SCH (21:34)
[2019-11-17] MEDS: ATORVASTATIN 20 MG TAB PO SCH (21:35)
[2019-11-17] MEDS: HEPARIN SOD 5,000 UNIT/0.5 ML VIAL SQ SCH (21:39)
[2019-11-17] MEDS: INSULIN ASPART 100 UNITS/ML 3 ML PEN SC SCH (21:39)
--- NOTE | 2019-11-17 23:06 | Electrocardiogram Report ---
Test Reason : Blood Pressure : / mmHG Vent. Rate : 062 BPM Atrial Rate : 062 BPM P-R Int : 160 ms QRS Dur : 140 ms QT Int : 474 ms P-R-T Axes : 015 -06 150 degrees QTc Int : 481 ms Poor data quality, interpretation may be adversely affected Normal sinus rhythm Left bundle branch block Abnormal ECG When compared with ECG of 05-NOV-2019 14:06, No significant change was found Confirmed by Ariel Josue ([id number]) on 11/17/2019 11:07:01 PM Referred By: REFERRED SELF Confirmed By:Ariel Josue
[2019-11-18 05:48] LABS: Basophils # (auto) 0.04 K/uL (0-0.2); Basophils % (auto) 0.6 %; Eosinophils # (auto) 0.16 K/uL (0-0.5); Eosinophils % (auto) 2.3 %; Hematocrit (blood only) 42.5 % (37-47); Hemoglobin 13.5 g/dL (12.0-16.0); Immature Granulocytes # (auto) 0.01 K/uL (0.00-0.02); Immature Granulocytes % (auto) 0.1 %; Lymphocytes # (auto) 1.93 K/uL (1.2-3.4); Lymphocytes % (auto) 28.1 %; Mean Corpuscular Hemoglobin 31.4 pg (25-34); Mean Corpuscular Hgb Conc 31.8 g/dL (32-36); Mean Corpuscular Volume 98.8 fL (80-100); Mean Platelet Volume 11.2 fL (7.4-10.4); Monocytes # (auto) 0.82 K/uL (0.11-0.59); Neutrophils % (auto) 56.9 %; Platelet Count 255 K/uL (130-400); RDW Coefficient of Variation 15.8 % (11.5-14.5); RDW Standard Deviation 57.4 fL (36.4-46.3); White Blood Count 6.86 K/uL (4.8-10.8)
[2019-11-18 06:21] LABS: BUN Creatinine Ratio 23.4 (10-20); Calcium 8.8 mg/dl (8.5-10.1); Creatinine Clr Calc Pharmacy 18.1 ml/min; Est GFR (African American) 28.6; Est GFR (Non-African American) 24.7; Magnesium 2.4 mg/dl (1.8-2.4); Potassium 4.1 mmol/L (3.5-5.1)
[2019-11-18 06:29] LABS: RBC Morphology Unremarkable
[2019-11-18 08:23] LABS: Base Excess ABG 2.4 mEq/L (-9-1.8); HCO3 ABG 26 mmol/L (19-24); PCO2 ABG 38 mmHg (35-46); PO2 ABG 71 mmHg (80-95); pH ABG 7.46 (7.35-7.45)
[2019-11-18 08:25] LABS: Allen Test Pos (Pos)
[2019-11-18] MEDS: INSULIN ASPART 100 UNITS/ML 3 ML PEN SC SCH ×4 (08:55→20:54)
--- NOTE | 2019-11-18 08:57 | Pharmacy Report ---
Glycemic Control Consultation - Date of Service November 18, 2019 - Scope Scope: Glycemic Pharmacist consulted for glycemic control and to write orders per [facility] inpatient glycemic control protocol. - Objective Weight: 56.1 kg Accuchecks BSG (last 24hrs): 11/17/19 11/17/19 11/17/19 13:47 18:26 20:34 Glucose 218 H POC Glucose 134 H 205 H 11/18/19 11/18/19 04:50 08:08 Glucose 128 H POC Glucose 108 H Laboratory Data (last 24hrs): 11/17/19 11/18/19 13:47 04:50 Potassium 4.3 4.1 Carbon Dioxide 29 27 Anion Gap 5.0 5.0 Creatinine 1.80 H 1.81 H Est Cr Clr Drug Dosing 17.4 18.1 - Recent Pertinent Medications Outpatient Anti-diabetic Regimen: * Recently discharged from [facility] on 11/09/19 with Lantus 6 units daily (previously received 22 units daily, but was experiencing hypoglycemia) * A1c = 6.7 % (11/06/19) - Assessment & Plan Assessment & Plan: ASSESSMENT: * KEREN is an 88 year old female who presents to [facility] with increasing confusion and lethargy * Brain MRI showed no evidence of acute/subacute process * Patient recently discharged from [facility] on 11/08 with Lantus 6 units daily * BSG on admission of 218 mg/dL - Lantus 6 units SC was given the morning of admission * BSGs since admission ranging 108-218 mg/dL * Will continue Lantus 6 units daily and continue Novolog from recent admission for now (CF of 45 with no carb coverage) PLAN FOR INPATIENT GLYCEMIC CONTROL: * Basal insulin * Lantus 6 units SQ daily * Bolus insulin * NovoLog per scale ACHS or Q6hrs while NPO * Goal Range: Low 120 mg/dL - High 160 mg/dL * Correction Factor: 45 mg/dL/unit * Hold carb coverage at this time * Please note that the plan above was derived based on current level of insulin resistance and hospital stress. These recommendations are appropriate for inpatient admission only. Plan of care upon discharge will need to be reassessed to avoid potential outpatient hypo/hyperglycemia. Thank you.
[2019-11-18] MEDS: HEPARIN SOD 5,000 UNIT/0.5 ML VIAL SQ SCH ×2 (09:00→20:55)
[2019-11-18] MEDS: BUMETANIDE 1 MG TAB PO SCH (09:00)
[2019-11-18] MEDS: INSULIN GLARGINE SOLOSTAR 100 UNITS/ML 3 ML PEN SC SCH (09:00)
[2019-11-18] MEDS: ENALAPRIL MALEATE 10 MG TAB PO SCH (09:01)
[2019-11-18] MEDS: METOPROLOL TARTRATE 25 MG TAB PO SCH ×2 (09:01→20:54)
[2019-11-18] MEDS ORDERED: SYSTANE EYE OP PRN (09:59)
[2019-11-18] MEDS ORDERED: [UNRECOGNIZED DRUG - OTHER] TOP PRN (10:10)
--- NOTE | 2019-11-18 12:09 | Neurology Consultation ---
Date of Consultation November 18, 2019 Assessment & Plan (1) Change in mental status: Subacute change in mental status, probably multifactorial, no evidence for acute or subacute stroke or subclinical seizure activity on recent testing. Patient does have several chronic infarcts on her recently completed MRI with a notable moderate to large size infarct within the right frontal lobe that likely contributes to her tendency for confusion and behavioral change. She also appears to be moderately somnolent and may not be sleeping very well in light of her history of periodic limb movement disorder/restless leg syndrome/peripheral neuropathy. It would be reasonable to try increasing her dosage of ropinirole to see if this improves her sleep quality in the evening. May also consider a nonurgent outpatient sleep medicine evaluation. She does not have any signs or symptoms to suggest meningitis. 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 Further evaluation of this issue can be completed in the outpatient setting as well. (2) History of cerebrovascular accident: History of a moderate to large size chronic right frontal lobe infarct without obvious residual focal neurological deficits. However, an infarct in this location may predispose to confusion and behavioral changes. She does have a chronic small left cerebellar infarct as well but does not have any obvious residual ataxia on examination. Patient is already taking daily low-dose aspirin and atorvastatin which are both appropriate. I do note that she has a significantly reduced ejection fraction and severe global hypokinesis of the left ventricle. If this patient were to present with a TIA or stroke going forward, it would be reasonable to consider anticoagulation for prophylaxis against possible cardioembolism. She will continue to follow with her molder inflated ball. History of Present Illness Reason for Consultation: Confusion Requesting Physician: Jun Fuentes DO Attending Physician: Kiran Mark DO History of Present Illness The patient is an 88-year-old female who has been admitted to the [facility] for further evaluation of worsening confusion over the past month or so. She is apparently not sleeping very well due to neuropathy and restless leg syndrome and has become increasingly lethargic and has had a few falls as a result of this. She was admitted to the [facility] on November 04 for syncope, confusion and weakness potentially related to hypoglycemia at that time. She was evaluated by cardiology at that time although no definitive causative cardiac abnormality was identified. She does have well compensated chronic diastolic congestive heart failure as well as a history of transcatheter aortic valve replacement. She does not have a known history of epilepsy or seizure disorder but has been exhibiting transient lapses which appear to be related to falling asleep in the daytime. I did witness 1 of these episodes during my assessment of her this morning. She did not display any obvious seizure-like activity or automatisms and appeared to have intact mentation and normal behavior following the event. Nonetheless, I did recommend completion of an EEG for further assessment and to exclude possible subclinical seizure activity. This study was unremarkable, described in further detail below. A follow-up brain MRI is negative for acute or subacute stroke and unchanged from previous MRI done on November 04. She does have a moderate sized chronic infarct within the right frontal lobe. Additional details as described below. Allergies Allergy/AdvReac Type Severity Reaction Status Date / Time gabapentin Allergy Verified 11/17/19 13:48 metformin AdvReac Unknown . Verified 11/17/19 13:48 oxycodone AdvReac Unknown HALLUCINATI Verified 11/17/19 13:48 ONS Home Medications Home Medications Medication Instructions Recorded Confirmed Type Ocuvite Adult 50 Plus 1 cap PO DAILY@1400 10/10/18 11/17/19 History Systane Nighttime 1 applic OPB DAILY PRN 10/10/18 11/17/19 History aspirin 81 mg PO DAILY@1400 10/10/18 11/17/19 History bromfenac 1 drp OPB QAM 10/10/18 11/17/19 History calcium carbonate [Calcium 600] 600 mg PO DAILY@1400 10/10/18 11/17/19 History cholecalciferol (vitamin D3) 2,000 unit PO DAILY@1400 10/10/18 11/17/19 History [Vitamin D3] cyanocobalamin (vitamin B-12) 1,000 mcg PO DAILY@1400 10/10/18 11/17/19 History [Vitamin B-12] diphenoxylate-atropine [Lomotil] 2 tab PO BID PRN 10/10/18 11/17/19 History magnesium oxide 200 - 400 mg PO PM tab 05/20/19 11/17/19 History pen needle, diabetic 32 gauge x #200 ea 05/20/19 11/16/19 Rx 5/32" meloxicam 7.5 mg tablet 3.75 mg PO QAM PRN tab 10/14/19 11/17/19 History metoprolol tartrate 25 mg tablet 12.5 mg PO BID #90 tab 10/14/19 11/17/19 Rx bumetanide 1 mg PO QAM 11/05/19 11/17/19 History levothyroxine [Euthyrox] 100 mcg PO PM 11/05/19 11/17/19 History ropinirole 1 mg PO PM 11/05/19 11/17/19 History insulin aspart U-100 [Novolog 1 unit SC UD #1 device 11/09/19 11/17/19 Rx Flexpen U-100 Insulin] insulin glargine [Lantus Solostar 6 unit SC QAM #1 device 11/09/19 11/17/19 Rx U-100 Insulin] atorvastatin 20 mg PO HS 11/17/19 11/17/19 History benazepril DAILY 11/17/19 History carboxymethylcellulose sodium 1 drp OPB HS 11/17/19 11/17/19 History [Refresh Liquigel] enalapril maleate 20 mg PO QAM 11/17/19 11/17/19 History Patient History Medical History Diabetes (Chronic) Diastolic heart failure HTN (hypertension) (Chronic) Neuropathy Vitiligo Surgical History Aortic valve replaced H/O lumpectomy Hx of appendectomy S/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 Family History Father Myocardial infarction Unknown Atherosclerosis Brother Diabetes Denies family history of Ovarian cancer Prostate cancer Breast cancer Colorectal cancer Social History Preferred Language: [place] Communication Ability: Effective 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: No Beliefs That Will Affect Care: None Current Living Situation: Alone Current Living Situation Comment: family care Other Information That Helps Us Care for You: No Feels Safe at Home: Yes Safety Concerns: Feels Safe At This Time Smoking Status: Never smoker Second Hand Exposure: No ; Hx Alcohol Use: No Hx Substance Use: No Review of Systems Constitutional: + fatigue; no fever and no chills Eyes: no blind spots and no diplopia Ear, Nose, Mouth, Throat: no hearing loss Respiratory: no cough and no dyspnea Cardiovascular: no chest pain and no palpitations Gastrointestinal: no nausea and no vomiting Genitourinary: no urinary incontinence Musculoskeletal: no myalgia Integumentary: no rash and no lesions Neurologic: as per Subjective / HPI and + confusion; no localized weakness, no loss of sensation and no headache(s) Psychiatric: no depression and no anxiety Hematologic / Lymphatic: no easy bleeding and no easy bruising Physical Exam Physical Exam: The patient is a well-developed, well-nourished elderly female. She is mildly lethargic but otherwise oriented to person, hospital, day of the week, and year. She misses the exact date. Attention mildly impaired. Patient recalled 2 out of 3 objects with delayed recall/memory testing. Remote memory intact. She does have difficulty relating details pertaining to her more recent medical care over the past few weeks. Patient was able to spell world backwards. She is able to name objects and repeat phrases and exhibits a normal comprehension of vocabulary and otherwise age-appropriate fund of knowledge. Visual spence full to confrontation. Visual acuity normal. Pupils equal round reactive to light and accommodation. Eye movements normal. There is no nystagmus, ptosis, or ophthalmoplegia. Facial sensation intact. There is no facial droop or weakness. Hearing intact. Palate elevates midline. Shoulder shrug intact. Tongue protrudes to midline. There is decreased sensation to vibration and temperature affecting the distal lower limbs. Deep tendon reflexes are relatively intact for the arms and legs although diminished at the Achilles tendons bilaterally. Plantar responses upgoing for the left, equivocal for the right. There is no dysdiadochokinesia or dysmetria with myelto-lm-rmus or [id number] bilaterally. Ophthalmoscopic examination reveals normal- appearing optic disks and posterior segments. No papilledema or hemorrhages. Carotid pulses normal bilaterally, no bruits to auscultation. Gait and station not tested due to safety concerns/current medical condition. Patient exhibits normal muscle strength and tone for all 4 limbs. No atrophy. No abnormal movements observed. Results & Data Vital Signs (Past 12 Hours) Vital Signs Temp Pulse Resp BP Pulse Ox 11/18/19 08:57 71 136/54 L 11/18/19 07:48 36.3 C L 67 16 149/68 H 96 Laboratory Results WBC 6.86, hemoglobin 13.5, hematocrit 42.5, platelet count 255, sodium 146, potassium 4.1, BUN 42, creatinine 1.81, glucose 128, ammonia 15.7, TSH 1.650 Diagnostic Findings MRI of the brain completed yesterday reveals no significant change compared with the previous MRI done November 05, 2019. There is no evidence of acute or subacute stroke. There is no evidence of neoplasm or mass. There is a chronic small left cerebellar infarct as well as a medium to large size chronic right frontal infarct. There is evidence of chronic small vessel ischemic disease as well. There is no hydrocephalus. I reviewed the images as well as the radiologist's interpretation of this test. A carotid ultrasound completed November 05, 2019 was negative for hemodynamically significant stenosis. There was antegrade flow for both vertebral arteries. An electrocardiogram reveals a normal sinus rhythm, 62 bpm. An echocardiogram completed November 06, 2019 reveals moderate to severely reduced left ventricular systolic function with an ejection fraction of 30 to 35%. There is moderate to severe global hypokinesia of the left ventricle. There is a prosthetic aortic valve that is well-seated. No ASD detected. PFO was not assessed. Electroencephalogram completed this morning reveals a normal background rhythm with some admixed generalized theta slowing potentially consistent with a mild nonspecific encephalopathy. No epileptiform abnormalities observed. Coding Level of Care Code 59814 Initial In Care Lvl 3 Diagnoses Change in mental status R41.82 Altered mental status type: unspecified History of cerebrovascular accident Z86.73 (1) Change in mental status Altered mental status type: unspecified Qualified Code(s): R41.82 - Altered mental status, unspecified
--- NOTE | 2019-11-18 12:39 | Electroencephalogram ---
EEG Procedure Note Date of Service November 18, 2019 Start / End Times Start Time: 11:35 AM End Time: 11:55 AM Referring Physician Catrachito Her MD History Change in mental status, momentary lapses or somnolence, evaluate for possible complex partial seizures Home Medication List Home Medications Medication Instructions Recorded Confirmed Type Ocuvite Adult 50 Plus 1 cap PO DAILY@1400 10/10/18 11/17/19 History Systane Nighttime 1 applic OPB DAILY PRN 10/10/18 11/17/19 History aspirin 81 mg PO DAILY@1400 10/10/18 11/17/19 History bromfenac 1 drp OPB QAM 10/10/18 11/17/19 History calcium carbonate [Calcium 600] 600 mg PO DAILY@1400 10/10/18 11/17/19 History cholecalciferol (vitamin D3) 2,000 unit PO DAILY@1400 10/10/18 11/17/19 History [Vitamin D3] cyanocobalamin (vitamin B-12) 1,000 mcg PO DAILY@1400 10/10/18 11/17/19 History [Vitamin B-12] diphenoxylate-atropine [Lomotil] 2 tab PO BID PRN 10/10/18 11/17/19 History magnesium oxide 200 - 400 mg PO PM tab 05/20/19 11/17/19 History pen needle, diabetic 32 gauge x #200 ea 05/20/19 11/16/19 Rx 5/32" meloxicam 7.5 mg tablet 3.75 mg PO QAM PRN tab 10/14/19 11/17/19 History metoprolol tartrate 25 mg tablet 12.5 mg PO BID #90 tab 10/14/19 11/17/19 Rx bumetanide 1 mg PO QAM 11/05/19 11/17/19 History levothyroxine [Euthyrox] 100 mcg PO PM 11/05/19 11/17/19 History ropinirole 1 mg PO PM 11/05/19 11/17/19 History insulin aspart U-100 [Novolog 1 unit SC UD #1 device 11/09/19 11/17/19 Rx Flexpen U-100 Insulin] insulin glargine [Lantus Solostar 6 unit SC QAM #1 device 11/09/19 11/17/19 Rx U-100 Insulin] atorvastatin 20 mg PO HS 11/17/19 11/17/19 History benazepril DAILY 11/17/19 History carboxymethylcellulose sodium 1 drp OPB HS 11/17/19 11/17/19 History [Refresh Liquigel] enalapril maleate 20 mg PO QA 11/17/19 11/17/19 History Inpatient Medication List Atorvastatin Calcium (Lipitor) [address] [facility] Stop: 12/17/19 20:59 Last Admin: 11/17/19 21:35 Dose: 20 mg Documented by: [id number] Bumetanide (Bumex) 1 mg PO [facility]AJD [facility] Stop: 12/18/19 08:59 Last Admin: 11/18/19 09:00 Dose: 1 mg Documented by: [id number] Enalapril Maleate (Vasotec) 20 mg PO [facility] Stop: 12/18/19 08:59 Last Admin: 11/18/19 09:01 Dose: 20 mg Documented by: [id number] Heparin Sodium (Porcine) (Heparin Sodium (Porcine)) 5,000 units SQ Q12 COUNTS INCLUDE 234 BEDS AT THE [facility] Stop: 12/17/19 20:59 Last Admin: 11/18/19 09:00 Dose: 5,000 units Documented by: [id number] Cosigned by: [id number] Admin: 11/17/19 21:39 Dose: 5,000 units Documented by: [id number] Cosigned by: [id number] Insulin Aspart (Novolog Flexpen) 0 units SC ACHS COUNTS INCLUDE 234 BEDS AT THE [facility] Stop: 12/17/19 20:59 Last Admin: 11/18/19 08:55 Dose: Not Given Documented by: [id number] Cosigned by: [id number] Admin: 11/17/19 21:39 Dose: 1 units Documented by: [id number] Cosigned by: [id number] Insulin Glargine (Lantus Solostar Pen) 6 units SC [facility]AJD [facility] Stop: 12/18/19 08:59 Last Admin: 11/18/19 09:00 Dose: 6 units Documented by: [id number] Cosigned by: [id number] Levothyroxine Sodium (Synthroid) 100 mcg PO PM COUNTS INCLUDE 234 BEDS AT THE [facility] Stop: 12/17/19 20:59 Last Admin: 11/17/19 21:34 Dose: 100 mcg Documented by: [id number] Magnesium Oxide (Mag-Ox) 400 mg PO Q2D@2100 [facility] Stop: 12/17/19 20:59 Last Admin: 11/17/19 21:35 Dose: 400 mg Documented by: [id number] Metoprolol Tartrate (Lopressor) 12.5 mg PO BID [facility] Stop: 12/17/19 20:59 Last Admin: 11/18/19 09:01 Dose: 12.5 mg Documented by: [id number] Admin: 11/17/19 21:34 Dose: 12.5 mg Documented by: [id number] Miscellaneous (Order Awaiting Action) 1 ea N/A QS [facility] Stop: 12/18/19 00:00 Last Admin: 11/18/19 08:54 Dose: Not Given Documented by: [id number] Admin: 11/18/19 01:04 Dose: Not Given Documented by: [id number] Ropinirole HCl (Requip) 1 mg PO PM [facility] Stop: 12/17/19 20:59 Last Admin: 11/17/19 21:35 Dose: 1 mg Documented by: [id number] Discontinued Medications Albuterol (Duoneb) 3 ml NEB NOW STA Stop: 11/17/19 14:51 Last Admin: 11/17/19 15:16 Dose: 3 ml Documented by: [id number] Artificial Tears (Artificial Tears) 1 drops OPB HS [facility] Stop: 12/17/19 20:59 Last Admin: 11/17/19 21:34 Dose: 1 drops Documented by: [id number] Sodium Chloride (Nss) 500 mls @ 999 mls/hr IV .Q31M ONE Stop: 11/17/19 14:05 Last Infusion: 11/17/19 14:52 Dose: 0 mls/hr Documented by: [id number] Admin: 11/17/19 14:20 Dose: 999 mls/hr Documented by: [id number] Description This is a 21 electrode EEG with a single channel dedicated to limited EKG. The electrodes were placed in accordance with the International 10-20 system. There is a posterior dominant rhythm of about 8 Hz which is symmetrically distributed and attenuates with eye opening. There is a normal anterior to posterior organization. Photic stimulation is unremarkable. Hyperventilation is not performed. There is admixed 5-6 Hz theta activity seen throughout the majority of the study. There is no focal slowing. There are no epileptiform abnormalities. Interpretation There is a mildly abnormal appearing awake/drowsy EEG revealing a normal background rhythm with an element of mild generalized slowing potentially suggestive of a mild nonspecific encephalopathy. No epileptiform abnormalities or supportive evidence of seizure disorder at this time. [facility] EEG Procedure Codes Indication for Procedure (1) Change in mental status: (2) Seizure-like activity: Neurology Neurology: 36050 EEG include record awake & drowsy
[2019-11-18] MEDS: CALCIUM CARBONATE 1250MG TAB PO SCH (13:23)
[2019-11-18] MEDS: ASPIRIN 81 MG ECTAB PO SCH (13:23)
[2019-11-18] MEDS: CEROVITE ADV FORMULA TAB PO SCH (13:23)
[2019-11-18] MEDS: CHOLECALCIFEROL 1,000 UNITS 25 MCG TAB PO SCH (13:24)
[2019-11-18] MEDS: CYANOCOBALAMIN 500 MCG TABLET (VITAMIN B-12) PO SCH (13:24)
--- NOTE | 2019-11-18 16:02 | Hospitalist Progress Note ---
Date of Service November 18, 2019 Assessment & Plan (1) Confusion: most likely cause of confusion is excessive somnolence coupled with mild cognitive impairment she did well with mini cog test at the bedside she is oriented here in the hospital MRI brain with no acute stroke, no tumor, has evidence of prior small strokes no infection, no metabolic abnormalities ammonia and ABG and TSH normal check EEG for completeness most likely solution will be to improve sleep at home (2) Type 2 diabetes mellitus with diabetic neuropathy: diabetic diet, Novolog monitor for hypoglycemia (3) Hypertension: Blood pressure stable, continue outpatient medications as ordered. (4) Weakness: get PT/OT evaluations, she lives with family make sure she is safe for discharge (5) Periodic limb movement disorder: long standing issue, related to neuropathy, restless legs will increase Ropinirole to 2mg HS (6) Sleep disorder: lack of sleep at night causing excessive daytime somnolence leading to confusion, weakness will increase Ropinirole to try to give her more restful sleep at night may need to recommend frequent naps at home Admission and Anticipated Discharge Date Admission Date: November 17, 2019 Subjective patient calm today, oriented x 3, she knows that her daughters brought her here for confusion, acting weird, more lethargy long discussion with her daughters Tootie and Laura over the phone they said that he main issue is daytime somnolence, she will fall asleep during conversations she gets up in the morning, eats breakfast, takes her pills then wants to go back to bed, profound sleepiness they report that she does not sleep well at all she has bad neuropathy that keeps her up, causes restless leg syndrome, on Ropinirole 1mg daily for a long time they tried Gabapentin in the past, caused hallucinations at low doses reviewed chart, thorough work up with no clear cause, MRI brain normal, no infection, no metabolic abnormalities checked ABG and Ammonia this morning, normal d/w Dr. Her, he agrees to increase Ropinirole to 2mg HS, will check EEG will get PT/OT evaluations explained to daughters that we will likely d/c tomorrow Review of Systems Review of Systems: All systems reviewed & are unremarkable except as noted in HPI & below Constitutional: + fatigue (severe) and + weakness; no fever Respiratory: no cough and no dyspnea Cardiovascular: no chest pain and no edema Gastrointestinal: no abdominal pain, no nausea, no vomiting, no constipation and no diarrhea/loose stools Physical Exam Constitutional: WD/WN, vitals as above Eyes: PERRL, conjunctivae normal, anicteric sclerae ENMT: external ear and nose normal, oropharynx normal Neck: trachea midline, no thyromegaly Respiratory: normal respiratory effort, lungs clear to auscultation Cardiovascular: RRR, no murmur, no edema Gastrointestinal (Abdomen): normal bowel sounds, soft, nontender, no hepatosplenomegaly Musculoskeletal: no cyanosis or clubbing, extremities motor strength 5/5 Skin: no rashes, warm and dry Neurologic: patellar DTR's 2+ bilat, sensation intact and PERRL, EOMI, accommodation nl, no face palsy, no dysarthria Psychiatric: A+Ox3, euthymic affect Lymphatic: no cervical or axillary lymphadenopathy Results & Data ([facility]) Vital Signs (Past 12 Hours) Vital Signs Temp Pulse Resp BP Pulse Ox 11/18/19 15:09 36.4 C L 60 16 137/66 91 11/18/19 14:19 99 11/18/19 08:57 71 136/54 L 11/18/19 07:48 36.3 C L 67 16 149/68 H 96 Laboratory Results Laboratory Results - last 24 hr 11/17/19 11/17/19 11/17/19 13:47 18:26 20:34 WBC RBC Hgb Hct MCV MCH MCHC RDW Std Deviation RDW Coeff of Tru Plt Count MPV Immature Gran % (Auto) Neut % (Auto) Lymph % (Auto) [place] % (Auto) Eos % (Auto) Baso % (Auto) Immature Gran # (Auto) Neut # (Auto) Lymph # (Auto) [place] # (Auto) Eos # (Auto) Baso # (Auto) RBC Morphology ABG pH ABG pCO2 ABG pO2 ABG HCO3 ABG O2 Saturation ABG Base Excess Kris Test Barometric Pressure Oxygen Given Sodium Potassium Chloride Carbon Dioxide Anion Gap BUN Creatinine Est Cr Clr Drug Dosing Est GFR ( Amer) Est GFR (Non-Af Amer) BUN/Creatinine Ratio Glucose POC Glucose 134 H 205 H Calcium Magnesium Ammonia NT-Pro-B Natriuret Pep 14782 H 11/18/19 11/18/19 11/18/19 04:50 04:50 08:08 WBC 6.86 RBC 4.30 Hgb 13.5 Hct 42.5 MCV 98.8 MCH 31.4 MCHC 31.8 L RDW Std Deviation 57.4 H RDW Coeff of Tru 15.8 H Plt Count 255 MPV 11.2 H Immature Gran % (Auto) 0.1 Neut % (Auto) 56.9 Lymph % (Auto) 28.1 [place] % (Auto) 12.0 Eos % (Auto) 2.3 Baso % (Auto) 0.6 Immature Gran # (Auto) 0.01 Neut # (Auto) 3.90 Lymph # (Auto) 1.93 [place] # (Auto) 0.82 H Eos # (Auto) 0.16 Baso # (Auto) 0.04 RBC Morphology Unremarkable ABG pH ABG pCO2 ABG pO2 ABG HCO3 ABG O2 Saturation ABG Base Excess Kris Test Barometric Pressure Oxygen Given Sodium 146 H Potassium 4.1 Chloride 114 H Carbon Dioxide 27 Anion Gap 5.0 BUN 42 H Creatinine 1.81 H Est Cr Clr Drug Dosing 18.1 Est GFR ( Amer) 28.6 Est GFR (Non-Af Amer) 24.7 BUN/Creatinine Ratio 23.4 H Glucose 128 H POC Glucose 108 H Calcium 8.8 Magnesium 2.4 Ammonia NT-Pro-B Natriuret Pep 11/18/19 11/18/19 11/18/19 08:14 08:14 12:30 WBC RBC Hgb Hct MCV MCH MCHC RDW Std Deviation RDW Coeff of Tru Plt Count MPV Immature Gran % (Auto) Neut % (Auto) Lymph % (Auto) [place] % (Auto) Eos % (Auto) Baso % (Auto) Immature Gran # (Auto) Neut # (Auto) Lymph # (Auto) [place] # (Auto) Eos # (Auto) Baso # (Auto) RBC Morphology ABG pH 7.46 H ABG pCO2 38 ABG pO2 71 L ABG HCO3 26 H ABG O2 Saturation 95.0 ABG Base Excess 2.4 H Kris Test Pos Barometric Pressure 740.3 Oxygen Given ROOM AIR Sodium Potassium Chloride Carbon Dioxide Anion Gap BUN Creatinine Est Cr Clr Drug Dosing Est GFR ( Amer) Est GFR (Non-Af Amer) BUN/Creatinine Ratio Glucose POC Glucose 117 H Calcium Magnesium Ammonia 15.7 NT-Pro-B Natriuret Pep Medications Administered Current Inpatient Medications Acetaminophen (Tylenol) 650 mg PO Q4H PRN PRN Reason: pain/fever Stop: 12/17/19 18:15 Aspirin (Ecotrin Ectab) 81 mg PO DAILY@1400 [facility] Stop: 12/18/19 13:59 Last Admin: 11/18/19 13:23 Dose: 81 mg Documented by: Atorvastatin Calcium (Lipitor) 20 mg PO HS [facility] Stop: 12/17/19 20:59 Last Admin: 11/17/19 21:35 Dose: 20 mg Documented by: [facility]an[facility] (B[facility]ex) [facility] Stop: 12/18/19 08:59 Last Admin: 11/18/19 09:00 Dose: 1 mg Documented by: Calcium Carbonate (Os-Tin 500) 1,250 mg PO DAILY@1400 [facility] Stop: 12/18/19 13:59 Last Admin: 11/18/19 13:23 Dose: 1,250 mg Documented by: Cyanocobalamin (Vitamin B-12) 1,000 mcg PO DAILY@1400 [facility] Stop: 12/18/19 13:59 Last Admin: 11/18/19 13:24 Dose: 1,000 mcg Documented by: Dextrose (Dextrose 50%) 25 - 50 ml IV UD PRN; Protocol PRN Reason: Hypoglycemia Protocol Stop: 12/17/19 18:15 Diphenoxylate HCl/Atropine (Lomotil) 2 tab PO BID PRN PRN Reason: Diarrhea Stop: 12/17/19 18:15 Enalapril Maleate (Vasotec) 20 mg PO [facility] Stop: 12/18/19 08:59 Last Admin: 11/18/19 09:01 Dose: 20 mg Documented by: Glucagon (Glucagen) 1 mg SQ UD PRN; Protocol PRN Reason: Hypoglycemia Protocol Stop: 12/17/19 18:15 Glucose (Dex4 Glucose) 4 - 8 tabs PO UD PRN; Protocol PRN Reason: Hypoglycemia Protocol Stop: 12/17/19 18:15 Glucose (Glucose 40%) 15 - 30 gm PO UD PRN; Protocol PRN Reason: Hypoglycemia Protocol Stop: 12/17/19 18:15 Heparin Sodium (Porcine) (Heparin Sodium (Porcine)) 5,000 units SQ Q12 [facility] Stop: 12/17/19 20:59 Last Admin: 11/18/19 09:00 Dose: 5,000 units Documented by: Insulin Aspart (Novolog Flexpen) 0 units SC ACHS [facility] Stop: 12/17/19 20:59 Last Admin: 11/18/19 13:38 Dose: Not Given Documented by: Insulin Glargine (Lantus Solostar Pen) 6 units SC QAM [facility] Stop: 12/18/19 08:59 Last Admin: 11/18/19 09:00 Dose: 6 units Documented by: Levothyroxine Sodium (Synthroid) 100 mcg PO PM [facility] Stop: 12/17/19 20:59 Last Admin: 11/17/19 21:34 Dose: 100 mcg Documented by: Magnesium Oxide (Mag-Ox) 400 mg PO Q2D@2100 [facility] Stop: 12/17/19 20:59 Last Admin: 11/17/19 21:35 Dose: 400 mg Documented by: Magnesium Oxide (Mag-Ox) 200 mg PO Q2D@2100 [facility] Stop: 12/18/19 20:59 Meloxicam (Mobic) 3.75 mg PO QAM PRN PRN Reason: for wrists Stop: 12/17/19 18:15 Metoprolol Tartrate (Lopressor) 12.5 mg PO BID [facility] Stop: 12/17/19 20:59 Last Admin: 11/18/19 09:01 Dose: 12.5 mg Documented by: Miscellaneous (Order Awaiting Action) 1 ea N/A QS [facility] Stop: 12/18/19 00:00 Last Admin: 11/18/19 15:23 Dose: Not Given Documented by: Miscellaneous (Carbohydrates For Hypoglycemia) 15 - 30 gm PO UD PRN PRN Reason: Hypoglycemia Protocol Stop: 12/17/19 18:15 Miscellaneous Information (Consult Glycemic Management Pharmacy) 1 ea N/A UD PRN; Protocol PRN Reason: Consult Stop: 12/17/19 18:34 Multivitamins/Minerals (Multivitamin W/ Minerals Tab) 1 tab PO DAILY@1400 [facility] Stop: 12/18/19 13:59 Last Admin: 11/18/19 13:23 Dose: 1 tab Documented by: Systane Eye Drops: Non-Formulary Patient's Own Med 1 ea OP HS PRN PRN Reason: DRY EYES Stop: 12/18/19 09:58 Theraworx Relief Foam: Non-Formulary Patient's Own Med 1 ea TOP PRN PRN PRN Reason: Muscle Spasm Stop: 12/18/19 10:09 Ondansetron HCl (Zofran) 4 mg IV Q6H PRN PRN Reason: Nausea Stop: 12/17/19 18:15 Polyethylene Glycol (Miralax Powder Packet) 17 gm PO DAILY PRN PRN Reason: Constipation Stop: 12/17/19 18:15 Ropinirole HCl (Requip) 2 mg PO PM [facility] Stop: 12/18/19 20:59 Vitamin D (Vitamin D3) 2,000 units PO DAILY@1400 [facility] Stop: 12/18/19 13:59 Last Admin: 11/18/19 13:24 Dose: 2,000 units Documented by: PG Care Time/CCT Total # of Minutes Spent Total Time Spent: 40 Total Time Spent with Patient: Total time spent is greater than 50% in coordination of care (as documented) at patient's floor/unit and/or counseling patient: 20 minute conversation with patient's family Coding Level of Care Code 97168 Subseq Hosp Care Lvl 3 Diagnoses Confusion R41.0 Type 2 diabetes mellitus with diabetic neuropathy E11.40 Hypertension I10 Weakness R53.1 Periodic limb movement disorder G47.61 Sleep disorder G47.9
[2019-11-18] MEDS: LEVOTHYROXINE SODIUM 100 MCG TABLET PO SCH (20:53)
[2019-11-18] MEDS: ATORVASTATIN 20 MG TAB PO SCH (20:54)
[2019-11-18] MEDS ORDERED: ROPINIROLE HCL 1 MG TABLET PO SCH (21:00)
[2019-11-18] MEDS ORDERED: MAGNESIUM OXIDE 400 MG TAB PO SCH (21:00)
[2019-11-19] MEDS: INSULIN ASPART 100 UNITS/ML 3 ML PEN SC SCH ×2 (08:26→12:44)
[2019-11-19] MEDS: BUMETANIDE 1 MG TAB PO SCH (08:33)
[2019-11-19] MEDS: HEPARIN SOD 5,000 UNIT/0.5 ML VIAL SQ SCH (08:33)
[2019-11-19] MEDS: INSULIN GLARGINE SOLOSTAR 100 UNITS/ML 3 ML PEN SC SCH (08:33)
[2019-11-19] MEDS: METOPROLOL TARTRATE 25 MG TAB PO SCH (08:34)
[2019-11-19] MEDS: ENALAPRIL MALEATE 10 MG TAB PO SCH (08:34)
[2019-11-19] MEDS: CEROVITE ADV FORMULA TAB PO SCH (12:45)
[2019-11-19] MEDS: ASPIRIN 81 MG ECTAB PO SCH (12:45)
[2019-11-19] MEDS: CHOLECALCIFEROL 1,000 UNITS 25 MCG TAB PO SCH (12:46)
[2019-11-19] MEDS: CYANOCOBALAMIN 500 MCG TABLET (VITAMIN B-12) PO SCH (12:46)
[2019-11-19] MEDS: CALCIUM CARBONATE 1250MG TAB PO SCH (12:46)
--- NOTE | 2019-11-19 15:17 | Discharge Summary ---
Date of Service November 19, 2019 Admission HPI Per Admitting Provider This is an 88-year-old female with past medical history of diabetes, chronic diastolic CHF, and a remote CVA that presents today with a chief complaint of confusion. Patient is unable to provide much history but the patient's daughter is at bedside. Daughter relates that patient was previously very mentally sound without any issues with confusion. She notes that this may have changed approximately 1 month ago when her medication was changed from amlodipine to verapamil by cardiology. (I see this change was made by Nicolas Vanegas on 10/14/2019). At that time as she felt that the patient became much more foggy and had periods of confusion. She tells me that the patient is no longer on this medication. In addition, the patient was seen in the emergency room on 11/04 after being found to be significantly confused by the family in her home. The daughter tells me the patient was staring off into the distance and was essentially unresponsive. At that time, patient's blood sugar was only 45. She was admitted and treated for hypoglycemia and to rule out possible CVA. Although she had a mildly elevated troponin, it was noted to be chronic without any trending and was otherwise felt to be stable by cardiology. Daughter became more concerned over the past 3 days. While the patient seemed to be okay mentally after discharge, she had a significant decline more recently. She seems to get very lethargic and falls asleep during conversations or meals. She does have periods where she seems very forgetful and confused. At one point, the patient was caught wandering around outside in the middle of the night in her pajamas looking for her car keys. They feel this is worsened quite a bit and cannot explain it, which is what prompted the family to bring the patient for further evaluation. Of note, the patient did have an MRI of the brain on 11/04. Previous admission. There was a question of a remote infarct of the right frontal lobe which the family was unaware of. There were no new CVAs or other significant findings. Principal Diagnosis Confusion due to sleep disturbance Discharge Exam Constitutional WD/WN, vitals as above Eyes PERRL, conjunctivae normal, anicteric sclerae ENMT external ear and nose normal, oropharynx normal Neck trachea midline, no thyromegaly Respiratory normal respiratory effort, lungs clear to auscultation Cardiovascular RRR, no murmur, no edema Gastrointestinal (Abdomen) normal bowel sounds, soft, nontender, no hepatosplenomegaly Musculoskeletal no cyanosis or clubbing, extremities motor strength 5/5 Skin no rashes, warm and dry Neurologic patellar DTR's 2+ bilat, sensation intact and PERRL, EOMI, accommodation nl, no face palsy, no dysarthria Psychiatric A+Ox3, euthymic affect Lymphatic no cervical or axillary lymphadenopathy Discharge Data Allergies Allergy/AdvReac Type Severity Reaction Status Date / Time gabapentin Allergy Verified 11/17/19 13:48 metformin AdvReac Unknown . Verified 11/17/19 13:48 oxycodone AdvReac Unknown HALLUCINATI Verified 11/17/19 13:48 ONS Consultations 11/17/19 14:49 ED Decision to Admit Stat 11/17/19 18:16 Consult Neurology Routine Ordered Studies 11/17/19 13:36 CT head/brain wo con Stat 11/17/19 18:16 MR brain wo con Routine Hospital Course (1) Confusion: most likely cause of confusion is excessive somnolence coupled with mild cognitive impairment she did well with mini cog test at the bedside she is oriented here in the hospital MRI brain with no acute stroke, no tumor, has evidence of prior small strokes no infection, no metabolic abnormalities ammonia and ABG and TSH normal EEG showed some slowing consistent with possible mild encephalopathy but was otherwise normal, no seizure spikes most likely solution will be to improve sleep at home appreciate input from neurology, Dr. Her (2) Type 2 diabetes mellitus with diabetic neuropathy: diabetic diet, Novolog monitor for hypoglycemia (3) Hypertension: Blood pressure stable, continue outpatient medications as ordered. (4) Weakness: get PT/OT evaluations, she lives with family make sure she is safe for discharge (5) Periodic limb movement disorder: long standing issue, related to neuropathy, restless legs will increase Ropinirole to 2mg HS will add melatonin 3mg HS (6) Sleep disorder: lack of sleep at night causing excessive daytime somnolence leading to confusion, weakness will increase Ropinirole to try to give her more restful sleep at night add Melatonin 3mg HS may need frequent naps at home during the day Total Time Total Time Spent Total Time Spent (In Minutes): 31 minutes Total Time Includes: Examination of the Patient, Discharge Planning, Medication Reconciliation, Communication With Other Providers and Other (communication with patient's daughters over the phone) Discharge Plan Discharge Items Patient Disposition: Home - Self-Care Reason For Visit: ALTERED MENTAL STATUS Discharge Diagnosis: Altered mental status due to sleep disturbance Mild cognitive impairment Neuropathy and restless leg syndrome Condition on Discharge: Good Goals: Improve sleep at home with Ropinirole and Melatonin allow patient to take naps during the day to prevent excessive drowsiness Activity: Resume your previous activity Non-emergency contact: Primary Care Provider Call non-emergency contact if: you have any medication questions Follow-up/Referrals: Lottie Winn MD [Primary Care Provider] - (follow up can be in several weeks, does NOT need one week follow up) Diet: Heart Healthy Addtl Attending Provider Instructions: Medications: - ROPINIROLE: dose increased from 1mg to 2mg at bedtime - MELATONIN: 3mg capsule at bedtime to help with sleep Confusion, sleep disturbances most likely cause of confusion is excessive daytime somnolence due to poor sleep patient did relatively well with bedside mini cognition test, any cognitive impairment is mild MRI brain with no acute stroke, no tumor, has evidence of prior small strokes no infection, no metabolic abnormalities ammonia and ABG and TSH normal EEG essentially normal evaluated by Dr. Her, he agrees that we need to try to improve sleep patterns will increase Ropinirole to 2mg at bedtime, will add Melatonin 3mg at bedtime if patient still not sleeping well at night, allow for naps during the day, 2-3 times a day so she is getting rest, help reduce chances of confusion these episodes will likely continue from time to time hopefully over the next few weeks she will be able to sleep better at night Pending Studies at Discharge: No Stand-Alone Forms: My Medium, Smoking Cessation Medications and DC Order Prescriptions: New ropinirole 1 mg Tablet 2 mg PO PM 30 Days Qty: 60 RF: 1 melatonin 3 mg capsule 3 mg PO HS Qty: 30 RF: 1 Continued (DME) pen needle, diabetic [BD Ultra-Fine Yisel Pen Needle] 32 gauge x 5/32" needle See Dose Instructions .ROUTE .MEDSUPPLY Qty: 200 RF: 1 meloxicam 7.5 mg tablet 3.75 mg PO QAM PRN (Reason: for wrists) RF: 0 metoprolol tartrate 25 mg tablet 12.5 mg PO BID Qty: 90 RF: 3 magnesium oxide 400 mg magnesium tablet 200 - 400 mg PO PM RF: 0 cyanocobalamin (vitamin B-12) [Vitamin B-12] 1,000 mcg Tablet 1,000 mcg PO DAILY@1400 RF: 0 diphenoxylate-atropine [Lomotil] 2.5-0.025 mg Tablet 2 tab PO BID PRN (Reason: Diarrhea) RF: 0 aspirin 81 mg Tablet,Delayed Release (Dr/Ec) 81 mg PO DAILY@1400 RF: 0 calcium carbonate [Calcium 600] 600 mg calcium (1,500 mg) Tablet 600 mg PO DAILY@1400 RF: 0 cholecalciferol (vitamin D3) [Vitamin D3] 1,000 unit Tablet 2,000 unit PO DAILY@1400 RF: 0 Systane Nighttime 94-3 % Ointment 1 applic OPB DAILY PRN (Reason: Dry Eye(S)) RF: 0 Ocuvite Adult 50 Plus 250-5-1 mg Capsule 1 cap PO DAILY@1400 RF: 0 bromfenac 0.07 % drops 1 drp OPB QAM RF: 0 Refresh Liquigel 1 % Drops, Liquid Gel 1 drp OPB HS RF: 0 atorvastatin 20 mg tablet 20 mg PO HS RF: 0 enalapril maleate 10 mg tablet 20 mg PO QAM RF: 0 benazepril 20 mg tablet DAILY RF: 0 levothyroxine [Euthyrox] 100 mcg tablet 100 mcg PO PM RF: 0 bumetanide 1 mg tablet 1 mg PO QAM RF: 0 insulin aspart U-100 [Novolog Flexpen U-100 Insulin] 100 unit/mL (3 mL) Insuli n Pen 1 unit SC UD Qty: 1 RF: 0 Lantus Solostar U-100 Insulin 100 unit/mL (3 mL) Insulin Pen 6 unit SC QAM Qty: 1 RF: 0 Discontinued ropinirole 1 mg tablet 1 mg PO PM RF: 0 Discharge Orders: Discharge Order (Routine); Ordered 11/19/19 Ordered By: Kiran Luna/Other Patient Handouts: Ropinirole tablets Admission Data Admit Date/Time: 11/17/19 16:54 Attending Provider: Kiran Mark Admit Provider: Jun Fuentes Primary Care Provider: Lottie Winn Other Providers: Jun Fuentes ; Polly Jerez ; [facility] Other Interventions: Discharge Summary Assessment (RN) Last Done: 11/19/19 12:29 DC Date/Time DO NOT enter until pt leaves facility: 11/19/19 13:26 Coding Level of Care Code D/C Day Management >30 mins Diagnoses Confusion R41.0 Type 2 diabetes mellitus with diabetic neuropathy E11.40 Hypertension I10 Weakness R53.1 Periodic limb movement disorder G47.61 Sleep disorder G47.9
== END 2019-11-19 13:26 | disposition home or self-care (01) ==
LOC: 3E 12:39 → ED 12:39 → SUATTDRO 16:54 → 3E 18:05

== ENCOUNTER 2020-01-05 14:00 | Inpatient (IN) ==
[2020-01-05] MEDS ORDERED: FUROSEMIDE 40 MG/4 ML VIAL IV STA (14:30)
--- NOTE | 2020-01-05 14:37 | Emergency Department Note ---
ED Visit Note I have seen and examined this patient with Carol Amado and generally agree with the treatment plan as discussed. .
--- NOTE | 2020-01-05 14:55 | XRay Report ---
XR chest 1V portable CLINICAL HISTORY: syncope COMPARISON STUDY: 01/01/2020 FINDINGS: The heart is enlarged. 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 There is radiographic evidence of congestive failure with bilateral pleural effusions. There is a stable right perihilar nodule. There is a new 13 mm left lower lung zone nodular opacity. A CT scan performed in October 2018 did not dem onstrate pulmonary mass in this location. This is therefore unlikely to be neoplastic. IMPRESSION: Radiographic evidence of congestive failure with cardiomegaly and small bilateral pleural effusions. ACT 112: Negative or not required by law. Electronically signed by: Josh Simno M.D. 01/05/2020 2:54 PM
--- NOTE | 2020-01-05 14:56 | Emergency Department Note ---
History of Present Illness General Chief complaint: Unable to Void Stated complaint: WEIGHT GAIN, LETHARGY, UNABLE TO VOID History of Present Illness Maximum Pain Intensity: 5 This patient is a 89-year-old female that presents the emergency department via private vehicle for evaluation of weight gain and altered mental status. Due to her altered mental status, the history is taken from the patient's daughter, Tootie, who is at the bedside. She reports a decrease in her mental status over the last several weeks. She has a history of chronic kidney disease, lung disease and heart failure. The patient saw her cardiology team a few days ago. Her Bumex was increased from 1 mg to 3 mg. She was also put on 2 L of supplemental oxygen. The patient's daughter still notes an increase in her weight of 5 pounds since then. No infectious symptoms reported such as fever or cough. The patient's daughter is concerned that she has had a decrease in urine output. She also notes that her right foot is erythematous. No known injury. Home Medications Home Medications Medication Instructions Recorded Confirmed Type aspirin 81 mg PO QPM 10/10/18 01/05/20 History metoprolol tartrate 25 mg tablet 12.5 mg PO BID #90 tab 10/14/19 01/05/20 Rx levothyroxine [Euthyrox] 100 mcg PO QPM 11/05/19 01/05/20 History atorvastatin 20 mg PO HS 11/17/19 01/05/20 History melatonin 3 mg PO HS #30 cap 11/19/19 01/05/20 Rx Novolog Flexpen U-100 Insulin 100 See Rx Instructions .ROUTE 12/04/19 01/05/20 Rx unit/mL (3 mL) subcutaneous .COMPLEX PRN #15 ml NS trazodone 50 mg tablet 25 mg PO QPM #30 tab 12/22/19 01/05/20 Rx Centrum Silver 1 tab PO QDL 01/05/20 01/05/20 History Lantus Solostar U-100 Insulin 6 unit SC QAM 01/05/20 01/05/20 History duloxetine 20 mg PO QAM 01/05/20 01/05/20 History ropinirole 1 mg PO HS 01/05/20 01/05/20 History bumetanide 3 mg PO BID #90 tab 01/08/20 Rx morphine concentrate 5 mg PO Q1H PRN #30 ml 01/08/20 Rx Allergies Allergy/AdvReac Type Severity Reaction Status Date / Time gabapentin Allergy Verified 01/05/20 15:26 metformin AdvReac Unknown . Verified 01/05/20 15:26 oxycodone AdvReac Unknown HALLUCINATI Verified 01/05/20 15:26 ONS Past Med/Surg History Medical History (Updated 01/18/20 @ 13:34 by Carol Amado PA-C) Aortic regurgitation (Chronic) Bilateral pleural effusion Cardiomyopathy CKD (chronic kidney disease) stage 3, GFR 30-59 ml/min (Chronic) Dementia Dermatitis, eczematoid Diabetes type 2, controlled Diabetic peripheral neuropathy associated with type 2 diabetes mellitus Elevated brain natriuretic peptide (BNP) level (Inactive) Hearing loss (Inactive) Hypersomnia Intermittent confusion (Inactive) NSTEMI (non-ST elevated myocardial infarction) (Resolved) Seizure-like activity Sleep disorder Vascular dementia Vitamin D deficiency (Inactive) Vitiligo (Inactive) Surgical History Aortic valve replaced H/O lumpectomy Hx of appendectomy S/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 Family History Father Myocardial infarction Unknown Atherosclerosis Brother Diabetes Sister Diabetes Denies family history of Ovarian cancer Prostate cancer Breast cancer Colorectal cancer Social History Preferred Language: Arabic Communication Ability: Effective Neck Cutter Required: No Beliefs That Will Affect Care: None marital status: / Current Living Situation: Family Current Living Situation Comment: family care current occupational status: retired current occupation: worked at [employer] other: daughter/son-in-law staying with patient in [place] Feels Safe at Home: Yes Smoking Status: Never smoker Second Hand Exposure: No ; Hx Alcohol Use: No Hx Substance Use: No Review of Systems A total of 10 systems reviewed and were otherwise negative Physical Exam Vital Signs Vital Signs - 24 hr 01/05/20 14:04 Temperature 36.6 C Temperature Source Oral Pulse Rate 83 Respiratory Rate 16 Blood Pressure 146/77 H Blood Pressure Mean 100 Pulse Oximetry 96 Oxygen Delivery Method Room Air Sepsis Recent Fever Within 48 Hours No Sepsis New/Unexplained Change in Mental Status No Sepsis Action Taken by Nursing No Action Required Constitutional Altered state noted. Vital signs stable. Eyes EOM intact bilaterally ENMT external ear and nose normal, oropharynx normal Neck trachea midline Respiratory Diffuse crackles noted. No tachypnea noted. Cardiovascular RRR, no murmur, no edema Gastrointestinal (Abdomen) Slightly distended. Bowel sounds present in all 4 quadrants. Musculoskeletal Erythema noted to the right foot. Skin intact. Capillary refill less than 2 seconds. Skin no rashes, warm and dry Neurologic Unresponsive to verbal commands. Psychiatric Acting appropriately Course Course Patient was seen and examined Vital signs including blood pressure were reviewed medications list was verified with patient Labs were obtained, and a saline lock was established Medications were ordered. The case was discussed with my supervising physician. Imaging was performed and reviewed. Case was discussed with my supervising physician in addition to the hospitalist service. They kindly agreed to evaluate the patient for possible inpatient treatment Administered Medications Discontinued Medications Artificial Tears (Artificial Tears) 1 drops OP [facility] Stop: 02/04/20 21:14 Last Admin: 01/07/20 22:28 Dose: Not Given Documented by: [id number] Admin: 01/06/20 20:35 Dose: 1 drops Documented by: [id number] Admin: 01/05/20 21:52 Dose: 1 drops Documented by: [id number] Aspirin (Ecotrin Ectab) 81 mg PO DAILY@1400 [facility] Stop: 02/05/20 13:59 Last Admin: 01/07/20 15:06 Dose: Not Given Documented by: [id number] Admin: 01/06/20 14:54 Dose: 81 mg Documented by: [id number] Atorvastatin Calcium (Lipitor) 20 mg PO [facility] Stop: 02/06/20 20:59 Last Admin: 01/07/20 21:16 Dose: 20 mg Documented by: [id number] Bumetanide (Bumex) 3 mg PO BID@0800,1600 [facility] Stop: 02/06/20 18:59 Last Admin: 01/08/20 08:54 Dose: 3 mg Documented by: [id number] Admin: 01/07/20 19:36 Dose: 3 mg Documented by: [id number] Duloxetine HCl (Cymbalta) 20 mg PO DAILY [facility] Stop: 02/05/20 08:59 Last Admin: 01/08/20 08:54 Dose: 20 mg Documented by: [id number] Admin: 01/07/20 08:01 Dose: 20 mg Documented by: [id number] Admin: 01/06/20 08:57 Dose: 20 mg Documented by: [id number] Furosemide (Lasix) 40 mg IV NOW STA Stop: 01/05/20 14:31 Last Admin: 01/05/20 15:21 Dose: 40 mg Documented by: [id number] Heparin Sodium (Porcine) (Heparin Sodium (Porcine)) 5,000 units SQ Q12 ISIA[facility] Stop: 02/04/20 20:59 Last Admin: 01/08/20 09:07 Dose: Not Given Documented by: [id number] Admin: 01/07/20 21:24 Dose: 5,000 units Documented by: [id number] Cosigned by: [id number] Admin: 01/07/20 08:02 Dose: 5,000 units Documented by: [id number] Cosigned by: [id number] Admin: 01/06/20 20:34 Dose: 5,000 units Documented by: [id number] Cosigned by: [id number] Admin: 01/06/20 08:57 Dose: 5,000 units Documented by: [id number] Cosigned by: [id number] Admin: 01/05/20 21:33 Dose: 5,000 units Documented by: [id number] Cosigned by: [id number] Ceftriaxone Sodium (Rocephin) 1,000 mg in 50 mls @ 100 mls/hr IV NOW STA Stop: 01/05/20 16:55 Last Infusion: 01/05/20 17:41 Dose: 0 mls/hr Documented by: [id number] Admin: 01/05/20 16:47 Dose: 100 mls/hr Documented by: [id number] Bumetanide 2 mg/ Syringe 8 mls @ 4 mls/min IV BID ISIAH Stop: 02/04/20 20:59 Last Admin: 01/07/20 09:49 Dose: 4 mls/min Documented by: [id number] Admin: 01/06/20 20:38 Dose: 4 mls/min Documented by: [id number] Admin: 01/06/20 08:56 Dose: 4 mls/min Documented by: [id number] Admin: 01/05/20 21:33 Dose: 4 mls/min Documented by: [id number] Dobutamine HCl/Dextrose (Dobutamine / D5w) 500 mg in 250 mls @ 4.313 mls/hr IV .Q24H ISIAH; Protocol Stop: 02/04/20 20:54 Last Titration: 01/07/20 16:33 Dose: 0 mcg/kg/min, 0 mls/hr Documented by: [id number] Cosigned by: [id number] Titration: 01/07/20 07:13 Dose: 2.5 mcg/kg/min, 4.3 mls/hr Documented by: [id number] Cosigned by: [id number] Admin: 01/06/20 20:38 Dose: 2.49 mcg/kg/min, 4.3 mls/hr Documented by: [id number] Cosigned by: [id number] Titration: 01/06/20 20:38 Dose: 2.49 mcg/kg/min, 4.3 mls/hr Documented by: [id number] Cosigned by: [id number] Titration: 01/06/20 18:59 Dose: 2.49 mcg/kg/min, 4.3 mls/hr Documented by: [id number] Cosigned by: [id number] Titration: 01/06/20 06:50 Dose: 2.49 mcg/kg/min, 4.3 mls/hr Documented by: [id number] Cosigned by: [id number] Titration: 01/05/20 22:58 Dose: 2.5 mcg/kg/min, 4.3 mls/hr Documented by: [id number] Cosigned by: [id number] Admin: 01/05/20 21:29 Dose: 2.5 mcg/kg/min, 4.3 mls/hr Documented by: [id number] Cosigned by: [id number] Insulin Aspart (Novolog Flexpen) 0 units SC ACHS ISIAH Stop: 02/04/20 20:59 Last Admin: 01/08/20 08:56 Dose: Not Given Documented by: [id number] Cosigned by: [id number] Admin: 01/07/20 21:22 Dose: 2 units Documented by: [id number] Cosigned by: [id number] Admin: 01/07/20 17:49 Dose: Not Given Documented by: [id number] Cosigned by: [id number] Admin: 01/07/20 12:43 Dose: 1 units Documented by: [id number] Cosigned by: [id number] Admin: 01/07/20 08:03 Dose: Not Given Documented by: [id number] Cosigned by: [id number] Admin: 01/06/20 20:30 Dose: Not Given Documented by: [id number] Cosigned by: [id number] Admin: 01/06/20 17:03 Dose: Not Given Documented by: [id number] Cosigned by: [id number] Admin: 01/06/20 13:01 Dose: Not Given Documented by: [id number] Cosigned by: [id number] Admin: 01/06/20 08:54 Dose: Not Given Documented by: [id number] Cosigned by: [id number] Admin: 01/05/20 21:50 Dose: Not Given Documented by: [id number] Cosigned by: [id number] Levothyroxine Sodium (Synthroid) 100 mcg PO PM ISIAH Stop: 02/04/20 20:59 Last Admin: 01/07/20 21:18 Dose: 100 mcg Documented by: [id number] Admin: 01/06/20 20:33 Dose: 100 mcg Documented by: [id number] Admin: 01/05/20 21:34 Dose: 100 mcg Documented by: [id number] Melatonin (Melatonin) 3 mg PO HS ISIAH Stop: 02/05/20 17:59 Last Admin: 01/07/20 21:13 Dose: 3 mg Documented by: [id number] Admin: 01/06/20 18:12 Dose: 3 mg Documented by: [id number] Metoprolol Tartrate (Lopressor) 12.5 mg PO BID ISIAH Stop: 02/04/20 20:59 Last Admin: 01/08/20 08:55 Dose: 12.5 mg Documented by: [id number] Admin: 01/07/20 21:16 Dose: 12.5 mg Documented by: [id number] Admin: 01/07/20 08:01 Dose: 12.5 mg Documented by: [id number] Admin: 01/06/20 20:33 Dose: 12.5 mg Documented by: [id number] Admin: 01/06/20 08:56 Dose: 12.5 mg Documented by: [id number] Admin: 01/05/20 21:33 Dose: 12.5 mg Documented by: [id number] Olanzapine (Zyprexa) 2.5 mg IM NOW STA Stop: 01/07/20 21:06 Last Admin: 01/07/20 22:49 Dose: 2.5 mg Documented by: [id number] Ropinirole HCl (Requip) 1 mg PO HS ISIAH Stop: 02/04/20 20:59 Last Admin: 01/07/20 21:17 Dose: 1 mg Documented by: [id number] Admin: 01/06/20 20:33 Dose: 1 mg Documented by: [id number] Admin: 01/05/20 21:33 Dose: 1 mg Documented by: [id number] Trazodone HCl (Desyrel) 25 mg PO QPM@2000 ISIA[facility] Stop: 02/06/20 19:59 Last Admin: 01/07/20 19:35 Dose: 25 mg Documented by: [id number] Medical Decision Making Medical Records Attestation: I reviewed the patient's medical records. Home Medications Current Medication List: was personally reviewed by me Laboratory Data Attestation: I reviewed the patient's lab results. Result diagrams: 01/07/20 06:57 01/08/20 05:18 Lab Results 01/05/20 01/05/20 01/05/20 Range/Units 14:55 14:55 14:55 WBC 6.82 (4.8-10.8) K/uL RBC 5.00 (4.2-5.4) M/uL Hgb 15.6 (12.0-16.0) g/dL Hct 48.1 H (37-47) % MCV 96.2 (80-100) fL MCH 31.2 (25-34) pg MCHC 32.4 (32-36) g/dL RDW Std Deviation 57.6 H (36.4-46.3) fL RDW Coeff of Tru 16.8 H (11.5-14.5) % Plt Count 159 (130-400) K/uL MPV 12.8 H (7.4-10.4) fL Immature Gran % (Auto) 0.1 % Neut % (Auto) 79.1 % Lymph % (Auto) 10.6 % Bonner % (Auto) 8.1 % Eos % (Auto) 1.8 % Baso % (Auto) 0.3 % Immature Gran # (Auto) 0.01 (0.00-0.02) K/uL Neut # (Auto) 5.40 (1.4-6.5) K/uL Lymph # (Auto) 0.72 L (1.2-3.4) K/uL Bonner # (Auto) 0.55 (0.11-0.59) K/uL Eos # (Auto) 0.12 (0-0.5) K/uL Baso # (Auto) 0.02 (0-0.2) K/uL Absolute Nucleated RBC 0.12 H (0-0) K/uL Nucleated RBC % (auto) 1.8 % ESR (0-21) mm/hr PT Cancelled INR Cancelled APTT (21.0-31.0) Seconds PTT Ratio Sodium (136-145) mmol/L Potassium (3.5-5.1) mmol/L Chloride (98-107) mmol/L Carbon Dioxide (21-32) mmol/L Anion Gap (3-11) BUN (7-18) mg/dl Creatinine (0.6-1.2) mg/dl Est Cr Clr Drug Dosing ml/min Est GFR ( Amer) Est GFR (Non-Af Amer) BUN/Creatinine Ratio (10-20) Glucose (70-99) mg/dl Lactate 2.2 H* (0.4-2.0) mmol/L Uric Acid (2.6-7.2) mg/dl Calcium (8.5-10.1) mg/dl Total Bilirubin (0.2-1) mg/dl AST (15-37) U/L ALT (12-78) U/L Alkaline Phosphatase (45-117) U/L Troponin I (0-0.045) ng/ml Total Protein (6.4-8.2) gm/dl Albumin (3.4-5.0) gm/dl Globulin (2.5-4.0) gm/dl Albumin/Globulin Ratio (0.9-2) Urine Color Urine Appearance (Clear) Urine pH (4.5-7.5) Ur Specific [place] (1.000-1.030) Urine Protein (Negative) Urine Glucose (UA) (Negative) Urine Ketones (Negative) Urine Blood (Negative) Urine Nitrite (Negative) Urine Bilirubin (Negative) Urine Urobilinogen (Negative) Ur Leukocyte Esterase (Negative) 01/05/20 01/05/20 01/05/20 Range/Units 14:55 14:55 15:10 WBC (4.8-10.8) K/uL RBC (4.2-5.4) M/uL Hgb (12.0-16.0) g/dL Hct (37-47) % MCV (80-100) fL MCH (25-34) pg MCHC (32-36) g/dL RDW Std Deviation (36.4-46.3) fL RDW Coeff of Tru (11.5-14.5) % Plt Count (130-400) K/uL MPV (7.4-10.4) fL Immature Gran % (Auto) % Neut % (Auto) % Lymph % (Auto) % Bonner % (Auto) % Eos % (Auto) % Baso % (Auto) % Immature Gran # (Auto) (0.00-0.02) K/uL Neut # (Auto) (1.4-6.5) K/uL Lymph # (Auto) (1.2-3.4) K/uL Bonner # (Auto) (0.11-0.59) K/uL Eos # (Auto) (0-0.5) K/uL Baso # (Auto) (0-0.2) K/uL Absolute Nucleated RBC (0-0) K/uL Nucleated RBC % (auto) % ESR 20 (0-21) mm/hr PT INR APTT (21.0-31.0) Seconds PTT Ratio Sodium 138 (136-145) mmol/L Potassium (3.5-5.1) mmol/L Chloride 102 (98-107) mmol/L Carbon Dioxide 29 (21-32) mmol/L Anion Gap 7.0 (3-11) BUN 70 H (7-18) mg/dl Creatinine 2.75 H (0.6-1.2) mg/dl Est Cr Clr Drug Dosing 11.2 ml/min Est GFR ( Amer) 17.1 Est GFR (Non-Af Amer) 14.8 BUN/Creatinine Ratio 25.6 H (10-20) Glucose 192 H (70-99) mg/dl Lactate (0.4-2.0) mmol/L Uric Acid (2.6-7.2) mg/dl Calcium 8.6 (8.5-10.1) mg/dl Total Bilirubin 0.9 (0.2-1) mg/dl AST (15-37) U/L ALT 60 (12-78) U/L Alkaline Phosphatase 208 H (45-117) U/L Troponin I 0.142 H* (0-0.045) ng/ml Total Protein 7.0 (6.4-8.2) gm/dl Albumin 3.0 L (3.4-5.0) gm/dl Globulin 4.0 (2.5-4.0) gm/dl Albumin/Globulin Ratio 0.8 L (0.9-2) Urine Color Yellow Urine Appearance Clear (Clear) Urine pH 5.0 (4.5-7.5) Ur Specific [place] 1.012 (1.000-1.030) Urine Protein Negative (Negative) Urine Glucose (UA) Negative (Negative) Urine Ketones Negative (Negative) Urine Blood Negative (Negative) Urine Nitrite Negative (Negative) Urine Bilirubin Negative (Negative) Urine Urobilinogen Negative (Negative) Ur Leukocyte Esterase Negative (Negative) 01/05/20 01/05/20 01/05/20 Range/Units 16:32 16:32 16:32 WBC (4.8-10.8) K/uL RBC (4.2-5.4) M/uL Hgb (12.0-16.0) g/dL Hct (37-47) % MCV (80-100) fL MCH (25-34) pg MCHC (32-36) g/dL RDW Std Deviation (36.4-46.3) fL RDW Coeff of Tru (11.5-14.5) % Plt Count (130-400) K/uL MPV (7.4-10.4) fL Immature Gran % (Auto) % Neut % (Auto) % Lymph % (Auto) % Bonner % (Auto) % Eos % (Auto) % Baso % (Auto) % Immature Gran # (Auto) (0.00-0.02) K/uL Neut # (Auto) (1.4-6.5) K/uL Lymph # (Auto) (1.2-3.4) K/uL Bonner # (Auto) (0.11-0.59) K/uL Eos # (Auto) (0-0.5) K/uL Baso # (Auto) (0-0.2) K/uL Absolute Nucleated RBC (0-0) K/uL Nucleated RBC % (auto) % ESR (0-21) mm/hr PT 12.4 H INR 1.2 H APTT 29.3 (21.0-31.0) Seconds PTT Ratio 1.1 Sodium (136-145) mmol/L Potassium 5.0 (3.5-5.1) mmol/L Chloride (98-107) mmol/L Carbon Dioxide (21-32) mmol/L Anion Gap (3-11) BUN (7-18) mg/dl Creatinine (0.6-1.2) mg/dl Est Cr Clr Drug Dosing ml/min Est GFR ( Amer) Est GFR (Non-Af Amer) BUN/Creatinine Ratio (10-20) Glucose (70-99) mg/dl Lactate (0.4-2.0) mmol/L Uric Acid 13.5 H (2.6-7.2) mg/dl Calcium (8.5-10.1) mg/dl Total Bilirubin (0.2-1) mg/dl AST 38 H (15-37) U/L ALT (12-78) U/L Alkaline Phosphatase (45-117) U/L Troponin I (0-0.045) ng/ml Total Protein (6.4-8.2) gm/dl Albumin (3.4-5.0) gm/dl Globulin (2.5-4.0) gm/dl Albumin/Globulin Ratio (0.9-2) Urine Color Urine Appearance (Clear) Urine pH (4.5-7.5) Ur Specific [place] (1.000-1.030) Urine Protein (Negative) Urine Glucose (UA) (Negative) Urine Ketones (Negative) Urine Blood (Negative) Urine Nitrite (Negative) Urine Bilirubin (Negative) Urine Urobilinogen (Negative) Ur Leukocyte Esterase (Negative) Imaging Data Attestation: I personally reviewed and interpreted this imaging study as follows: Radiologist's Impression: CT head without contrast No acute intracranial findings CT abdomen and pelvis without contrast Volume overload with severe body wall edema, moderate to large bilateral pleural effusions, and ascites, mesenteric edema. 2. Question of underlying cirrhosis. 3. Diverticulosis coli. It is difficult to exclude acute uncomplicated diverticulitis in the distal descending colon given the presence of wall thickening, diverticulosis, and mesenteric edema. Correlate for symptomatology in the left lower quadrant. 4. Additional findings as above. ACT 112: Negative or not required by law. Electronically signed by: Earle Aguilar M.D. 01/05/2020 4:02 PM Dictated: 01/05/20 1556 Transcribed: 01/05/20 1556 Chest x-ray Radiographic evidence of congestive failure with cardiomegaly and small bilateral pleural effusions. Prescription Drug Monitoring [place] Drug Monitoring [place] reviewed and no issues identified Blood Pressure Blood Pressure Findings: Elevated blood pressure Blood Pressure Disposition: did not require urgent referral MDM Narrative Differential diagnosis: Sepsis, CHF, acute respiratory failure, encephalopathy, electrolyte abnormality, renal failure, among others This patient is a 89-year-old female that presents to the emergency department with the above symptoms. On exam, she was altered. Vital signs are stable. Labs reveal no leukocytosis. She did have a significant increase in her BUN and creatinine, likely secondary to dehydration. I do not feel comfortable sending the patient home; therefore, the patient will be evaluated by the hospitalist service for possible inpatient management Impression & Plan Acute renal failure (ARF) Discharge Plan Visit Data *Final* Discharge Date/Time: 01/05/20 18:12 Chief Complaint: Unable to Void Stated Complaint: WEIGHT GAIN, LETHARGY, UNABLE TO VOID ED Provider: Vaibhav Garcia ED Midlevel Provider: Carol Amado Discharge Problem: Acute renal failure (ARF) Patient Disposition: Admitted As Inpatient Condition: Fair Discharge Instructions Interventions: ED Discharge Assessment Last Done: 01/05/20 18:12
[2020-01-05 15:18] LABS: Basophils # (auto) 0.02 K/uL (0-0.2); Basophils % (auto) 0.3 %; Eosinophils # (auto) 0.12 K/uL (0-0.5); Eosinophils % (auto) 1.8 %; Hematocrit (blood only) 48.1 % (37-47); Hemoglobin 15.6 g/dL (12.0-16.0); Immature Granulocytes # (auto) 0.01 K/uL (0.00-0.02); Immature Granulocytes % (auto) 0.1 %; Lymphocytes # (auto) 0.72 K/uL (1.2-3.4); Lymphocytes % (auto) 10.6 %; Mean Corpuscular Hemoglobin 31.2 pg (25-34); Mean Corpuscular Hgb Conc 32.4 g/dL (32-36); Mean Corpuscular Volume 96.2 fL (80-100); Mean Platelet Volume 12.8 fL (7.4-10.4); Monocytes # (auto) 0.55 K/uL (0.11-0.59); Monocytes % (auto) 8.1 %; Neutrophils % (auto) 79.1 %; Nucleated RBC # (auto) 0.12 K/uL (0-0); Nucleated RBC % (auto) 1.8 %; Platelet Count 159 K/uL (130-400); RDW Coefficient of Variation 16.8 % (11.5-14.5); RDW Standard Deviation 57.6 fL (36.4-46.3); White Blood Count 6.82 K/uL (4.8-10.8)
[2020-01-05 15:40] LABS: Appearance Urine Clear (Clear); Bilirubin Urine Negative (Negative); Blood Urine Negative (Negative); Color Urine Yellow; Glucose Urine UA Negative (Negative); Ketones Urine Negative (Negative); Leukocyte Esterase Urine Negative (Negative); Nitrite Urine Negative (Negative); Protein Urine Negative (Negative); Specific Gravity Urine 1.012 (1.000-1.030); Urobilinogen Urine Negative (Negative)
[2020-01-05 15:44] LABS: Albumin Globulin Ratio 0.8 (0.9-2); BUN Creatinine Ratio 25.6 (10-20); Bilirubin,Total 0.9 mg/dl (0.2-1); Calcium 8.6 mg/dl (8.5-10.1); Creatinine Clr Calc Pharmacy 11.2 ml/min; Est GFR (African American) 17.1; Est GFR (Non-African American) 14.8; Troponin I 0.142 ng/ml (0-0.045)
--- NOTE | 2020-01-05 15:59 | CT Scan Report ---
CT head/brain wo con CLINICAL HISTORY: Acute change in mental status. COMPARISON STUDY: MRI dated 11/17/2019, CT scan dated 11/17/2019 TECHNIQUE: Axial CT of the brain is performed from the vertex to the skull base. IV contrast was not administered for this examination. A dose lowering technique was utilized adhering to the principles of ALARA. CT DOSE: 1612.45 mGy.cm FINDINGS: No intra or extra-axial mass lesions are visualized. There is no CT evidence of acute cortical infarc tion. There is no evidence of midline shift. There is no acute hemorrhage. No calvarial fractures ar e visualized. There are patchy white matter hypodensities likely on a small vessel basis. 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 There is no evidence of pathologic ventricular dilatation. There is no evidence of acute sinusitis IMPRESSION: No acute intracranial findings ACT 112: Negative or not required by law. Electronically signed by: Josh Simon M.D. 01/05/2020 3:58 PM
--- NOTE | 2020-01-05 16:04 | CT Scan Report ---
CT abd pelvis wo con CLINICAL HISTORY: 89 years-old Female presenting with abd distention AMS. TECHNIQUE: Multidetector CT of the abdomen and pelvis was performed without the use of intravenous co ntrast. IV contrast: None. One or more dose lowering techniques were used consistent with the princip les of ALA (as low as reasonably achievable), including automatic exposure control, mA or kV adjust ment to individual patient size, and/or use of iterative reconstruction. COMPARISON: None. CT DOSE (mGy.cm): The estimated cumulative dose is 262.86 mGy.cm. 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 Cardiomegaly. Lung bases: Mild multichamber enlargement of the heart. Moderate to large bilateral simple-appearing pleural effusions. Extensive passive atelectasis at the lung bases. Congestive change may also be pre sent. Liver: Micronodular contour of the liver is suggested. Normal density. Biliary: No gross biliary ductal dilatation allowing for noncontrast technique. Normal gallbladder. Pancreas: Mild parenchymal atrophy. Spleen: Normal noncontrast appearance. Adrenal glands: Normal noncontrast appearance. Kidneys and ureters: Adjacent cysts noted at the lower pole of the left kidney, possibly localized cy stic renal disease. No nephrolithiasis or hydronephrosis. Ureters nondistended. Bladder: Angelo catheter decompresses the urinary bladder. Pelvic organs: Several calcified degenerated fibroid suspected. Bowel: Diverticulosis of the proximal to mid sigmoid colon and distal descending colon. There is mild wall thickening of the descending colon which does not appear to be limited to the region of diverti culosis. It is difficult to assess for pericolonic fat stranding given the degree of diffuse mesenter ic edema. Postsurgical changes suspected in the region of the cecum likely from prior appendectomy. N o bowel obstruction. Small to moderate sliding-type hiatal hernia. Peritoneal cavity: Small volume of abdominopelvic ascites, which is grossly simple appearing. Extensi ve mesenteric edema is noted to a mild to moderate degree. No free intraperitoneal gas. Lymph nodes: No gross lymphadenopathy allowing for noncontrast technique. Vasculature: Atherosclerosis of the normal caliber abdominal aorta. There is significant calcified at herosclerotic plaque in the infrarenal abdominal aorta, which is suspected to result in severe stenos is (series 3 image 130). No aneurysm. Abdominal wall: Severe body wall edema. Musculoskeletal: Degenerative changes of the spine. IMPRESSION: 1. Volume overload with severe body wall edema, moderate to large bilateral pleural effusions, and a scites, mesenteric edema. 2. Question of underlying cirrhosis. 3. Diverticulosis coli. It is difficult to exclude acute uncomplicated diverticulitis in the distal descending colon given the presence of wall thickening, diverticulosis, and mesenteric edema. Correla te for symptomatology in the left lower quadrant. 4. Additional findings as above. ACT 112: Negative or not required by law. Electronically signed by: Earle Aguilar M.D. 01/05/2020 4:02 PM
--- NOTE | 2020-01-05 16:16 | Electrocardiogram Report ---
Test Reason : Blood Pressure : / mmHG Vent. Rate : 061 BPM Atrial Rate : 061 BPM P-R Int : 000 ms QRS Dur : 154 ms QT Int : 478 ms P-R-T Axes : 000 -06 152 degrees QTc Int : 481 ms Poor data quality, interpretation may be adversely affected Sinus rhythm Left bundle branch block Abnormal ECG When compared with ECG of 17-NOV-2019 13:46, No significant change Confirmed by Nba Stewart ([id number]) on 01/05/2020 4:16:01 PM Referred By: Nicolas Vanegas Confirmed By:Nba Stewart
[2020-01-05] MEDS ORDERED: cefTRIAXone SODIUM 1,000 MG/50 ML BAG IV STA (16:26)
[2020-01-05 16:52] LABS: INR 1.2 (0.9-1.1); Partial Thromboplastin Ratio 1.1; Partial Thromboplastin Time 29.3 Seconds (21.0-31.0); Prothrombin Time 12.4 Seconds (9.0-12.0)
--- NOTE | 2020-01-05 17:00 | History & Physical Report ---
Date of Service January 05, 2020 Assessment & Plan (1) Combined systolic and diastolic congestive heart failure: Patient with marked volume overload despite escalating doses of bumex as outpatient. EF on echo 11/2019 30-35%. Her baseline CKD (now with superimposed COLTEN) along with ?cirrhosis will also contribute to significant volume status issues. Based on imaging today she also has b/l pleural effusions - at least moderate in size. Per daughter has needed thoracentesis in the past. Her COLTEN is likely due to cardio-renal syndrome. I spoke with Dr Adam and we discussed her case. Will trial her on dobutamine infusion to enhance her diuresis. Start 2.5mcg/kg/min. Place on bumex 2mg IV BID (received lasix in ER). Adjust bumex as needed. Continue beta leesa. Hold GIULIANA in light of COLTEN. Formal consult with Dr Adam requested; he will see tomorrow. Serial troponins, telemetry, etc. (2) Acute kidney failure: Likely due to decompensated CHF. See discussion above in CHF. May need nephrology consultation but defer for now. BMP daily. Daughter believes that her mother would likely not want hemodialysis. CT today w/o signs of obstruction. Angelo in place. (3) Metabolic encephalopathy: Uncertain etiology. Has been altered for 1-2 months and mentation has steadily declined. Patient was lethargic most of the admission assessment. Check ammonia in light of ?cirrhosis on imaging. Check VBG, r/o hypercarbia. Check vitamin B12 level. TSH most recently was normal. No obvious infectious source - u/a wnl, no pneumonia, etc. Supportive care. Daughter states mentation has been the same pre and post cymbalta initiation so unlikely contributing. Patient has been taking ropinirole for long time - doubt contributing. COLTEN could be contributing. (4) Chronic respiratory failure with hypoxia: Initiated on NC O2 last week. Likely due to restrictive/obstructive lung disease as well as decompensated CHF. Cont NC O2. (5) Diabetic peripheral neuropathy associated with type 2 diabetes mellitus: Patient w/ very poor appetite. On minimal amount of lantus at home - hold for now. Novolog - loose sliding scale. 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 cardiac cirrhosis? due to VICTORIA? other? check ammonia level. (12) CAD (coronary artery disease): no obvious ischemic symptoms by history. troponin elevated today -- likely myocardial demand ischemia +/- COLTEN. doubt ACS. (13) Elevated troponin: see above (14) Stenosis of aorta: as seen on CT today suspect this is causing inflow disease to legs causing the cold extremities that daughter has noted (15) Swelling of right foot: I suspect right mid-foot gout and right great toe podagra; I do not think this is cellulitis (received IV abx in ER) uric acid level markedly elevated poor candidate for prednisone or NSAIDs follow for now would defer on additional antibiotics for now (16) DVT prophylaxis: at high risk of DVT given immobility heparin 5000 BID daughter extensively updated at bedside prognosis is poor if patient does not respond to above measures over next 2-3 days strongly consider palliative care consultation History of Present Illness Chief Complaint: fluid retention, confusion Primary Care Provider: Lottie Winn MD 89yo female with CKD stage 3, chronic systolic and diastolic CHF, T2DM, vascular dementia, and restrictive/obstructive lung disease who presents with her daughter due to altered mental status and worsening edema of the legs and abdomen. The edema has worsened despite escalating doses of bumex (initially was on 1mg, now up to 3mg/day). Seen by PCP and cardiology (Nicolas Vanegas) last week for these issues. During office visit on Saturday with Mr Vanegas she was noted to be hypoxic and was prescribed NC O2 2 liters. About 2 weeks ago she was placed on cymbalta 20mg daily by Dr Her for neuropathic pain of legs. Daughter came up from [place] to live with her mother and she reports several weeks of generalized decline and worsening confusion. Walking/ambulation has become more challenging, and since the weekend her walking has gotten very severe. Prior to that had been using a walker on a limited basis. Last her family noted her right foot to be red and modestly warm. Appetite has been very poor for several weeks. Lastly, she has been very sleepy. Sleeping 12+ hours at night and long naps during the day. Allergies Allergy/AdvReac Type Severity Reaction Status Date / Time gabapentin Allergy Verified 01/05/20 15:26 metformin AdvReac Unknown . Verified 01/05/20 15:26 oxycodone AdvReac Unknown HALLUCINATI Verified 01/05/20 15:26 ONS Home Medications Home Medications Medication Instructions Recorded Confirmed Type aspirin 81 mg PO QPM 10/10/18 01/05/20 History metoprolol tartrate 25 mg tablet 12.5 mg PO BID #90 tab 10/14/19 01/05/20 Rx levothyroxine [Euthyrox] 100 mcg PO QPM 11/05/19 01/05/20 History atorvastatin 20 mg PO HS 11/17/19 01/05/20 History melatonin 3 mg PO HS #30 cap 11/19/19 01/05/20 Rx Novolog Flexpen U-100 Insulin 100 See Rx Instructions .ROUTE 12/04/19 01/05/20 Rx unit/mL (3 mL) subcutaneous .COMPLEX PRN #15 ml NS trazodone 50 mg tablet 25 mg PO QPM #30 tab 12/22/19 01/05/20 Rx Lantus Solostar U-100 Insulin 6 unit SC QAM 01/05/20 01/05/20 History benazepril 20 mg PO QAM 01/05/20 01/05/20 History bumetanide 1 mg PO QAM 01/05/20 01/05/20 History duloxetine 20 mg PO QAM 01/05/20 01/05/20 History magnesium See Rx Instructions .ROUTE .COMPLEX 01/05/20 01/05/20 History njcjgefe-loo-SV-lycopen-lutein 1 tab PO QDL 01/05/20 01/05/20 History [Centrum Silver] ropinirole 1 mg PO HS 01/05/20 01/05/20 History Past Med/Surg History Medical History Aortic regurgitation (Chronic) Bilateral pleural effusion Cardiomyopathy Chronic diastolic congestive heart failure CKD (chronic kidney disease) stage 3, GFR 30-59 ml/min (Chronic) Dementia Dermatitis, eczematoid Diabetes type 2, controlled Diabetic peripheral neuropathy associated with type 2 diabetes mellitus Elevated brain natriuretic peptide (BNP) level (Inactive) Hearing loss (Inactive) Hypersomnia Intermittent confusion (Inactive) NSTEMI (non-ST elevated myocardial infarction) (Resolved) Seizure-like activity Sleep disorder Vascular dementia Vitamin D deficiency (Inactive) Vitiligo (Inactive) Surgical History Aortic valve replaced H/O lumpectomy Hx of appendectomy S/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 Family History (Updated 01/05/20 @ 17:04 by Rene Alonzo) Father Myocardial infarction Unknown Atherosclerosis Brother Diabetes Sister Diabetes Denies family history of Ovarian cancer Prostate cancer Breast cancer Colorectal cancer Social History (Updated 01/05/20 @ 17:05 by Rene Alonzo) Preferred Language: Romansh Communication Ability: Effective 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 Beliefs That Will Affect Care: None marital status: / Current Living Situation: Family Current Living Situation Comment: family care current occupational status: retired current occupation: worked at [employer] Other Information That Helps Us Care for You: No other: daughter/son-in-law staying with patient in [place] Feels Safe at Home: Yes Safety Concerns: Feels Safe At This Time Smoking Status: Never smoker Second Hand Exposure: No ; Hx Alcohol Use: No Hx Substance Use: No Review of Systems Constitutional: + fatigue, + malaise, + anorexia and + weight gain; no fever and no chills Eyes: + worsening vision Ear, Nose, Mouth, Throat: + dysphagia Respiratory: + dyspnea; no cough Cardiovascular: no chest pain Gastrointestinal: + abdominal pain, + bloating and + constipation; no vomiting Genitourinary: + urinary incontinence Musculoskeletal: no joint pain Integumentary: + erythema (right foot ); no rash Neurologic: + numbness and + paresthesia Psychiatric: no depression and no anxiety Endocrine: diabetes under good control - BSGs <150 Hematologic / Lymphatic: no easy bruising Physical Exam Constitutional: + acute distress (abnormal breathing - tachypnea at times), + ill appearing, + altered mental status and + frail appearing; + not well developed and + not well nourished Eyes: PERRL; no nystagmus ENMT: external ear and nose normal, oropharynx normal Neck: trachea midline, no thyromegaly Respiratory: + tachypneic and + paradoxical chest wall movement (upper right ant chest - superior right breast ) Auscultation: + diminished lung sounds (bases) and + crackles; no wheezes Cardiovascular: Rate/Rhythm: regular rate and regular rhythm Heart Sounds: normal S1 and normal S2; no murmur Vessels: + JVD (to the jaw ), posterior tibial pulses present and dorsalis pedis pulses present Extremities: + edema (2+ to the thighs) Gastrointestinal (Abdomen): Inspection/Auscultation: + abdomen distended (with ascites ) and normal bowel sounds Percussion/Palpation: abdomen nontender and no guarding Musculoskeletal: right foot - swelling/erythema of great toe; swelling/erythema of right mid-foot; mildly tender over mid-foot to palpation Skin: + erythema (right mid-foot and right great toe) minimal ecchymoses anterior shins Neurologic: + does not move all extremities Motor/Sensory: + asterixis DTRs brisk but symmetric upper/lower extremities; upgoing great toe left foot; no facial droop; constant limb movements of legs during the exam Psychiatric: Orientation: + not alert and + not oriented x 3 Lymphatic: no cervical lymphadenopathy Results & Data Results & Data ([facility]) Vital Signs (Past 12 Hours) Vital Signs Temp Pulse Resp BP Pulse Ox 01/05/20 15:15 61 22 155/47 H 97 01/05/20 14:04 36.6 C 83 16 146/77 H 96 Laboratory Results Laboratory Results - last 24 hr 01/05/20 01/05/20 01/05/20 14:55 14:55 14:55 WBC 6.82 RBC 5.00 Hgb 15.6 Hct 48.1 H MCV 96.2 MCH 31.2 MCHC 32.4 RDW Std Deviation 57.6 H RDW Coeff of Tru 16.8 H Plt Count 159 MPV 12.8 H Immature Gran % (Auto) 0.1 Neut % (Auto) 79.1 Lymph % (Auto) 10.6 Granite % (Auto) 8.1 Eos % (Auto) 1.8 Baso % (Auto) 0.3 Immature Gran # (Auto) 0.01 Neut # (Auto) 5.40 Lymph # (Auto) 0.72 L [place]ite # (Auto) 0.55 Eos # (Auto) 0.12 Baso # (Auto) 0.02 Absolute Nucleated RBC 0.12 H Nucleated RBC % (auto) 1.8 ESR PT Cancelled INR Cancelled APTT PTT Ratio VBG pH VBG pCO2 VBG pO2 VBG HCO3 VBG O2 Saturation VBG Base Excess Barometric Pressure Sodium Potassium Chloride Carbon Dioxide Anion Gap BUN Creatinine Est Cr Clr Drug Dosing Est GFR ( Amer) Est GFR (Non-Af Amer) BUN/Creatinine Ratio Glucose Lactate 2.2 H* Uric Acid Calcium Total Bilirubin AST ALT Alkaline Phosphatase Ammonia Troponin I Total Protein Albumin Globulin Albumin/Globulin Ratio Vitamin B12 Urine Color Urine Appearance Urine pH Ur Specific [place] Urine Protein Urine Glucose (UA) Urine Ketones Urine Blood Urine Nitrite Urine Bilirubin Urine Urobilinogen Ur Leukocyte Esterase 01/05/20 01/05/20 01/05/20 14:55 14:55 15:10 WBC RBC Hgb Hct MCV MCH MCHC RDW Std Deviation RDW Coeff of Tru Plt Count MPV Immature Gran % (Auto) Neut % (Auto) Lymph % (Auto) Granite % (Auto) Eos % (Auto) Baso % (Auto) Immature Gran # (Auto) Neut # (Auto) Lymph # (Auto) Granite # (Auto) Eos # (Auto) Baso # (Auto) Absolute Nucleated RBC Nucleated RBC % (auto) ESR 20 PT INR APTT PTT Ratio VBG pH VBG pCO2 VBG pO2 VBG HCO3 VBG O2 Saturation VBG Base Excess Barometric Pressure Sodium 138 Potassium Chloride 102 Carbon Dioxide 29 Anion Gap 7.0 BUN 70 H Creatinine 2.75 H Est Cr Clr Drug Dosing 11.2 Est GFR ( Amer) 17.1 Est GFR (Non-Af Amer) 14.8 BUN/Creatinine Ratio 25.6 H Glucose 192 H Lactate Uric Acid Calcium 8.6 Total Bilirubin 0.9 AST ALT 60 Alkaline Phosphatase 208 H Ammonia Troponin I 0.142 H* Total Protein 7.0 Albumin 3.0 L Globulin 4.0 Albumin/Globulin Ratio 0.8 L Vitamin B12 Urine Color Yellow Urine Appearance Clear Urine pH 5.0 Ur Specific [place] 1.012 Urine Protein Negative Urine Glucose (UA) Negative Urine Ketones Negative Urine Blood Negative Urine Nitrite Negative Urine Bilirubin Negative Urine Urobilinogen Negative Ur Leukocyte Esterase Negative 01/05/20 01/05/20 01/05/20 16:32 16:32 16:32 WBC RBC Hgb Hct MCV MCH MCHC RDW Std Deviation RDW Coeff of Tru Plt Count MPV Immature Gran % (Auto) Neut % (Auto) Lymph % (Auto) Gran[place] % (Auto) Eos % (Auto) Baso % (Auto) Immature Gran # (Auto) Neut # (Auto) Lymph # (Auto) Granite # (Auto) Eos # (Auto) Baso # (Auto) Absolute Nucleated RBC Nucleated RBC % (auto) ESR PT 12.4 H INR 1.2 H APTT 29.3 PTT Ratio 1.1 VBG pH VBG pCO2 VBG pO2 VBG HCO3 VBG O2 Saturation VBG Base Excess Barometric Pressure Sodium Potassium 5.0 Chloride Carbon Dioxide Anion Gap BUN Creatinine Est Cr Clr Drug Dosing Est GFR ( Amer) Est GFR (Non-Af Amer) BUN/Creatinine Ratio Glucose Lactate Uric Acid 13.5 H Calcium Total Bilirubin AST 38 H ALT Alkaline Phosphatase Ammonia Troponin I Total Protein Albumin Globulin Albumin/Globulin Ratio Vitamin B12 Urine Color Urine Appearance Urine pH Ur Specific [place] Urine Protein Urine Glucose (UA) Urine Ketones Urine Blood Urine Nitrite Urine Bilirubin Urine Urobilinogen Ur Leukocyte Esterase 01/05/20 01/05/20 01/05/20 18:10 18:15 18:15 WBC RBC Hgb Hct MCV MCH MCHC RDW Std Deviation RDW Coeff of Tru Plt Count MPV Immature Gran % (Auto) Neut % (Auto) Lymph % (Auto) Granite % (Auto) Eos % (Auto) Baso % (Auto) Immature Gran # (Auto) Neut # (Auto) Lymph # (Auto) Granite # (Auto) Eos # (Auto) Baso # (Auto) Absolute Nucleated RBC Nucleated RBC % (auto) ESR PT INR APTT PTT Ratio VBG pH 7.37 VBG pCO2 48 VBG pO2 54 VBG HCO3 27 VBG O2 Saturation 86.3 VBG Base Excess 1.1 Barometric Pressure 728.2 Sodium Potassium Chloride Carbon Dioxide Anion Gap BUN Creatinine Est Cr Clr Drug Dosing Est GFR ( Amer) Est GFR (Non-Af Amer) BUN/Creatinine Ratio Glucose Lactate Uric Acid Calcium Total Bilirubin AST ALT Alkaline Phosphatase Ammonia 18.0 Troponin I Total Protein Albumin Globulin Albumin/Globulin Ratio Vitamin B12 > 2000 H Urine Color Urine Appearance Urine pH Ur Specific [place] Urine Protein Urine Glucose (UA) Urine Ketones Urine Blood Urine Nitrite Urine Bilirubin Urine Urobilinogen Ur Leukocyte Esterase Diagnostic Findings CT head - FINDINGS: No intra or extra-axial mass lesions are visualized. There is no CT evidence of acute cortical infarction. There is no evidence of midline shift. There is no acute hemorrhage. No calvarial fractures are visualized. There are patchy white matter hypodensities likely on a small vessel basis. There is an old right frontal lobe infarct. There is an old left cerebellar infarct. There is no evidence of pathologic ventricular dilatation. There is no evidence of acute sinusitis CT abd/pelvis - IMPRESSION: 1. Volume overload with severe body wall edema, moderate to large bilateral pleural effusions, and ascites, mesenteric edema. 2. Question of underlying cirrhosis. 3. Diverticulosis coli. It is difficult to exclude acute uncomplicated diverticulitis in the distal descending colon given the presence of wall thickening, diverticulosis, and mesenteric edema. Correlate for symptomatology in the left lower quadrant. 4. Additional findings as above. cxr - IMPRESSION: Radiographic evidence of congestive failure with cardiomegaly and small bilateral pleural effusions. EKG - my reading - NSR, LBBB, lateral ST flattening, inferior ST flattening Code Status & VTE Plan Code Status DNR - confirmed with daughter daughter also stated that her mom would probably not want hemodialysis VTE Prophylaxis Plan VTE Prophylaxis will be ordered: Yes PG Care Time/CCT Total # of Minutes Spent Total Time Spent with Patient: Total time spent is greater than 50% in coordination of care (as documented) at patient's floor/unit and/or counseling patient: Coding Level of Care Code 85404 Initial Inpt Care Lvl 3 Diagnoses Combined systolic and diastolic congestive heart failure I50.43 Heart failure chronicity: acute on chronic Acute kidney failure N17.9 Acute renal failure type: unspecified Metabolic encephalopathy G93.41 Chronic respiratory failure with hypoxia J96.11 Diabetic peripheral neuropathy associated with type 2 diabetes mellitus E11.42 CKD (chronic kidney disease) stage 3, GFR 30-59 ml/min N18.3 Hypothyroidism E03.9 Hypothyroidism type: acquired Mixed restrictive and obstructive lung disease J44.9; J98.4 S/P TAVR (transcatheter aortic valve replacement) Z95.2 Vascular dementia F01.50 Dementia behavioral disturbance: without behavioral disturbance Cirrhosis K74.69 Hepatic cirrhosis type: other cirrhosis CAD (coronary artery disease) I25.10 Coronary Disease-Associated Artery/Lesion type: [place] artery [place] vs. transplanted heart: [place] heart Associated angina: without angina Elevated troponin R79.89 Stenosis of aorta Q25.3 Swelling of right foot M79.89 DVT prophylaxis Z29.9 (1) Vascular dementia Dementia behavioral disturbance: without behavioral disturbance Qualified Code(s): F01.50 - Vascular dementia without behavioral disturbance (2) Acute kidney failure Acute renal failure type: unspecified Qualified Code(s): N17.9 - Acute kidney failure, unspecified (3) Combined systolic and diastolic congestive heart failure Heart failure chronicity: acute on chronic Qualified Code(s): I50.43 - Acute on chronic combined systolic (congestive) and diastolic (congestive) heart failure (4) Hypothyroidism Hypothyroidism type: acquired Qualified Code(s): E03.9 - Hypothyroidism, unspecified (5) Cirrhosis Hepatic cirrhosis type: other cirrhosis Qualified Code(s): K74.69 - Other cirrhosis of liver (6) CAD (coronary artery disease) Coronary Disease-Associated Artery/Lesion type: [place] artery [place] vs. transplanted heart: [place] heart Associated angina: without angina Qualified Code(s): I25.10 - Atherosclerotic heart disease of [place] coronary artery without angina pectoris
[2020-01-05 18:32] LABS: Base Excess VBG 1.1 mEq/L; Oxygen Saturation VBG 86.3 %; pH VBG 7.37 (7.36-7.41)
[2020-01-05] MEDS ORDERED: ACETAMINOPHEN 325 MG TAB PO PRN (20:55)
[2020-01-05] MEDS ORDERED: ONDANSETRON INJ 2 MG/ML 2 ML VIAL IV PRN (20:55)
[2020-01-05] MEDS ORDERED: STAT IV Infusion **Titration per Protocol STA (20:55)
[2020-01-05] MEDS ORDERED: ARTIFICIAL TEARS OP OINT 3.5 GM TUBE OP PRN (21:07)
[2020-01-05] MEDS ORDERED: GLUCAGON FOR INJ 1 MG VIAL IM PRN (21:15)
[2020-01-05] MEDS ORDERED: DEXTROSE 50% 50 ML SYRINGE IV PRN (21:15)
[2020-01-05] MEDS ORDERED: GLUCOSE 10 TABS/TUBE PO PRN (21:15)
[2020-01-05] MEDS ORDERED: CARBOHYDRATES FOR HYPOGLYCEMIA PO PRN (21:15)
[2020-01-05] MEDS ORDERED: GLUCOSE 40% GEL 15 GM TUBE PO PRN (21:15)
[2020-01-05] MEDS: DOBUTamine / D5W 500 MG/250 ML BAG IV SCH (21:29)
[2020-01-05] MEDS: ROPINIROLE HCL 1 MG TABLET PO SCH (21:33)
[2020-01-05] MEDS: METOPROLOL TARTRATE 25 MG TAB PO SCH (21:33)
[2020-01-05] MEDS: HEPARIN SOD 5,000 UNIT/0.5 ML VIAL SQ SCH (21:33)
[2020-01-05] MEDS: BUMETANIDE 2 MG in SYRINGE 0 ML IV SCH (21:33)
[2020-01-05] MEDS: LEVOTHYROXINE SODIUM 100 MCG TABLET PO SCH (21:34)
[2020-01-05] MEDS: INSULIN ASPART 100 UNITS/ML 3 ML PEN SC SCH (21:50)
[2020-01-05] MEDS: ARTIFICIAL TEARS OP SCH (21:52)
[2020-01-06 06:38] LABS: Albumin Globulin Ratio 0.8 (0.9-2); Albumin Level 2.5 gm/dl (3.4-5.0); BUN Creatinine Ratio 28.2 (10-20); Bilirubin,Total 0.8 mg/dl (0.2-1); Calcium 8.3 mg/dl (8.5-10.1); Creatinine Clr Calc Pharmacy 12.7 ml/min; Est GFR (African American) 19.9; Est GFR (Non-African American) 17.2; Globulin 3.3 gm/dl (2.5-4.0); Potassium 4.1 mmol/L (3.5-5.1); Total Protein 5.8 gm/dl (6.4-8.2)
[2020-01-06] MEDS: INSULIN ASPART 100 UNITS/ML 3 ML PEN SC SCH ×4 (08:54→20:30)
[2020-01-06] MEDS: BUMETANIDE 2 MG in SYRINGE 0 ML IV SCH ×2 (08:56→20:38)
[2020-01-06] MEDS: METOPROLOL TARTRATE 25 MG TAB PO SCH ×2 (08:56→20:33)
[2020-01-06] MEDS: HEPARIN SOD 5,000 UNIT/0.5 ML VIAL SQ SCH ×2 (08:57→20:34)
[2020-01-06] MEDS: DULOXETINE HCL 20 MG CAP PO SCH (08:57)
--- NOTE | 2020-01-06 09:41 | Cardiology Consultation ---
Date of Consultation January 06, 2020 Assessment & Plan (1) Combined systolic and diastolic congestive heart failure: Mrs. Giraldo is an 89-year-old female with a history of Chronic Hypoxic Respiratory Failure, Mixed Restrictive and Obstructive Lung Disease, Hypoxemia, Hypersomnolence, Vascular Dementia, CVA's, PLMD, Aortic Valve Disease s/p TAVR 11/10/15, CAD (70% Ostial D1 Stenosis on Cardiac Catheterization 10/16/2018), Hypertension, Dyslipidemia, Chronic Systolic and Diastolic CHF, CKD, Type 2 Diabetes Mellitus (insulin requiring), CKD, Diabetic Neuropathy, Recent Hyponatremia, Hypothyroidism, Chronic Fatigue, Chronic LBBB, Chronically Elevated Troponin I Level, and a Cardiomyopathy (LVEF 30% to 35% on Echo 11/06/2019) who has had a progressive decline in her overall health status and functional status beginning in Mid November 2019. Over the past 2 weeks, and particularly over this past weekend -- patient has had progressive fluid retention, weight gain, peripheral edema, and dyspnea secondary to Acute on Chronic Combined Systolic and Diastolic CHF. Despite escalating doses of outpatient Bumex, the patient's status became progressively worse so she was brought to the hospital for admission. Patient is currently on a Dobutamine drip and she is receiving IV Bumex 2 mg b.i.d.. She has response favorably to this. Her body weight is down 1.1 pound, she has a negative fluid balance of 461 ml since being admitted, and her renal function has improved. Patient has a chronically elevated troponin I level -- and her current levels appear to be at their baseline and do not appear to have any significant trending. Additionally patient has not had any symptoms suggestive of angina pectoris. Does not appear to be in need for further ischemic workup. Recommend the followin. Continue Bumex 2 mg IV b.i.d. for the time being. 2. Continue Dobutamine drip. 3. Continue Lopressor 12.5 mg b.i.d.. 4. Consider adding an ACEI or an ARB (patient had worsening renal function on Entresto so it was stopped, patient will not take this medications). 5. Monitor daily body weights, daily I&Os. 6. Maintain a 2 gram low-sodium diet. 7. Continue fluid restriction at 1800 ml/day. We will see how she does over the next 24 hours on her current regimen. ADDENDUM (Dr. Stewart): Patient seen and examined. Agree with plan as outlined above by Mr. Guilherme JEAN. Patient management was also discussed with Dr. Adam (her primary dishwasher busser). She has shown modest clinical improvement over the past 24 hours, continue dobutamine and diuretics. She does not appear significantly volume overloaded, suspect some degree of low output heart failure. Given her general debilitation and multiple comorbidities, decisions regarding aggressiveness of care will need to be reevaluated daily based upon her short- term response to therapy as well as the anticipated long-term likelihood of improved clinical/functional/symptoms status. Present on Admission?: Yes (2) Cardiomyopathy: Most recent Echocardiogram 11/06/2019 showed an LVEF of 30% to 35%. -- Continue exterminator helper beta leesa. -- Consider adding an ACEI or an ARB with close monitoring of renal function. Present on Admission?: Yes (3) LBBB (left bundle branch block): Her LBBB is chronic and her QRS duration is > 150 msec, with the presence of decreased LV systolic function being discovered on 11/06/2019 -- could consider a Bi-V device for cardiac resynchronization therapy at some point. (4) Acute kidney failure: -- Creatinine has gone from 2.75 mg/dl down 2.43 mg/dl since being admitted. -- Probably has improved renal perfusion with the use of IV dobutamine. -- Continue daily laboratories. (5) Mixed restrictive and obstructive lung disease: -- Continue home O2 following discharge. (6) Chronic respiratory failure with hypoxia: -- Secondary to mixed restrictive and obstructive lung disease and certainly worsened with hypervolemia. -- Continue supplemental O2. -- Treat underlying CHF, continue IV diuretic and dobutamine drip. History of Present Illness Reason for Consultation: -- Acute on Chronic Systolic and Diastolic CHF. -- Cardiomyopathy LVEF 30% to 35%. -- Chronic Hypoxic Respiratory Failure. Requesting Physician: Melita Adhikari MD Attending Physician: Nba Stewart MD History of Present Illness Mrs. Giraldo is an 89-year-old female with a history of Chronic Hypoxic Respir atory Failure, Mixed Restrictive and Obstructive Lung Disease, Hypoxemia, Hypersomnolence, Vascular Dementia, CVA's, PLMD, Aortic Valve Disease s/p TAVR 11/10/15, CAD (70% Ostial D1 Stenosis on Cardiac Catheterization 10/16/2018), Hypertension, Dyslipidemia, Chronic Systolic and Diastolic CHF, CKD, Type 2 Diabetes Mellitus (insulin requiring), CKD, Diabetic Neuropathy, Recent Hyponatremia, Hypothyroidism, Chronic Fatigue, Chronic LBBB, Chronically Elevated Troponin I Level, and a Cardiomyopathy (LVEF 30% to 35% on Echo 11/06/2019) whom I saw on 01/01/2020 after her daughter contacted us and described that patient was experiencing progression of Intermittent Cyanosis, Weight Gain, Leg Edema, and SOB/COLON. Patient's daughter Tootie contacted our office with these complaints on 12/29/2019. We advised her to increase Bumex to 2 mg daily until re-evaluated in our office. Unfortunately, patient's weight was still 2-3 pounds above her dry weight. Her dyspnea and lower extremity edema had not improved despite this increase in her diuretic -- additionally the patient was wearing depends undergarments now so patient's daughter was uncertain if her urinary output has increased on this higher dose of Bumex. Contributing to this was the fact that she had not been not eating much and was noted to have low serum albumin levels on recent laboratories. Patient's daughter was feeding the patient her more egg whites to help raise her albumin levels. Her last PFTs on 09/13/2017 showed both restrictive and obstructive lung disease patterns. Patient's SpO2 saturation during our office visit ranged from 86% to 95% on room air. Additionally, the patient was hypersomnolent, and has an altered respiratory pattern with relatively rapid shallow breaths followed by a gradual slowing of respiratory rate followed by a deep breath -- like a gasp (Jg- Da Silva). She was placed on supplemental oxygen at 2 liters/minute via nasal cannula. Her O2 saturations stayed above 97% thereafter and patient became more interactive and less somnolent. She qualified for supplemental oxygen based on her O2 saturations on 01/01/2020 -- so she was started on home O2 the same day. Patient's daughter contacted the office on 01/04/2020 for a verbal report -- and stated that supplemental O2 improved her mental status -- but patient was still gaining fluid weight, had progressive leg LE edema, and was still SOB. We increased her Bumex to 2.5 mg mg daily. The following day the patient's daughter called the office again with progression of the same symptoms. We increased her Bumex to 3 mg daily -- and patient's daughter (Tootie) was advised to bring patient to the hospital if symptoms weren't improving -- so we could provide IV diuretics. Patient was admitted to [facility] ICU on 01/05/2020 and started on IV Bumex 2 mg b.i.d. and a Dobutamine drip. She has a negative fluid balance and her creatinine is improving as well. Patient has had the following Cardiac Procedures / Studies: 1. ECHOCARDIOGRAM 12/24/2016: -- Normal bioprosthetic aortic valve function with mean gradient of 11 and peak gradient of 20. -- Mild to moderate mitral regurgitation. -- Mild aortic regurgitation without perivalvular leak. 2. 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 3. CARDIAC CATHETERIZATION 10/20/2015: -- Left dominant system. -- LMCA -- Calcified with no disease. -- LAD -- Luminal irregularities only. -- LCx -- Luminal irregularities only. -- OM1 -- Mild disease. -- RCA -- Non-dominant, mild disease. 4. ECHOCARDIOGRAM 08/16/2017: -- Normal LV size and systolic function. -- LVEF 60% to 65%, No RWMA's. -- Mild concentric LVH. -- Grade II LV diastolic dysfunction. -- Normal gradient across prosthetic aortic valve, Mild AI. -- Mild MR. -- Mild TR. 5. LEXISCAN CARDIOLITE 09/06/2017: -- No Evidence of Myocardial Ischemia. -- Fixed mid to distal anteroseptal defect (felt to be attenuation artifact). -- LBBB present. -- Normal LVEF. -- No transient ischemic dilatation. 6. CARDIAC CATHETERIZATION 10/16/2018: -- Left dominant system. -- LMCA -- Calcified with no disease. -- LAD -- Luminal irregularities only. -- D1 -- 70% Ostial stenosis. -- LCx -- Luminal irregularities only. -- OM1 -- Mild disease. -- RCA -- Non-dominant, mild disease. 7. ECHOCARDIOGRAM: -- LV systolic function is moderately to severely reduced. -- Moderate to severe global hypokinesis of the left ventricle. -- Mild concentric LVH. -- LVEF 30% to 35%. -- Prosthetic aortic valve is well-seated within acceptable gradient. -- Mild AI. -- Moderate MR. -- Compared to 10/11/2018 Echo -- LV systolic dysfunction is now depressed. Allergies Allergy/AdvReac Type Severity Reaction Status Date / Time gabapentin Allergy Verified 01/05/20 15:26 metformin AdvReac Unknown . Verified 01/05/20 15:26 oxycodone AdvReac Unknown HALLUCINATI Verified 01/05/20 15:26 ONS Home Medications Home Medications Medication Instructions Recorded Confirmed Type aspirin 81 mg PO QPM 10/10/18 01/05/20 History metoprolol tartrate 25 mg tablet 12.5 mg PO BID #90 tab 10/14/19 01/05/20 Rx levothyroxine [Euthyrox] 100 mcg PO QPM 11/05/19 01/05/20 History atorvastatin 20 mg PO HS 11/17/19 01/05/20 History melatonin 3 mg PO HS #30 cap 11/19/19 01/05/20 Rx Novolog Flexpen U-100 Insulin 100 See Rx Instructions .ROUTE 12/04/19 01/05/20 Rx unit/mL (3 mL) subcutaneous .COMPLEX PRN #15 ml NS trazodone 50 mg tablet 25 mg PO QPM #30 tab 12/22/19 01/05/20 Rx Lantus Solostar U-100 Insulin 6 unit SC QAM 01/05/20 01/05/20 History benazepril 20 mg PO QAM 01/05/20 01/05/20 History bumetanide 1 mg PO QAM 01/05/20 01/05/20 History duloxetine 20 mg PO QAM 01/05/20 01/05/20 History magnesium See Rx Instructions .ROUTE .COMPLEX 01/05/20 01/05/20 History dmqmarup-slr-PK-lycopen-lutein 1 tab PO QDL 01/05/20 01/05/20 History [Centrum Silver] ropinirole 1 mg PO HS 01/05/20 01/05/20 History Patient History Medical History (Updated 01/06/20 @ 10:38 by Nicolas Vanegas PA-C) Aortic regurgitation (Chronic) Bilateral pleural effusion Cardiomyopathy Chronic diastolic congestive heart failure (Inactive) CKD (chronic kidney disease) stage 3, GFR 30-59 ml/min (Chronic) Dementia Dermatitis, eczematoid Diabetes type 2, controlled Diabetic peripheral neuropathy associated with type 2 diabetes mellitus Elevated brain natriuretic peptide (BNP) level (Inactive) Hearing loss (Inactive) Hypersomnia Intermittent confusion (Inactive) NSTEMI (non-ST elevated myocardial infarction) (Resolved) Seizure-like activity Sleep disorder Vascular dementia Vitamin D deficiency (Inactive) Vitiligo (Inactive) Surgical History Aortic valve replaced H/O lumpectomy Hx of appendectomy S/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 Family History Father Myocardial infarction Unknown Atherosclerosis Brother Diabetes Sister Diabetes Denies family history of Ovarian cancer Prostate cancer Breast cancer Colorectal cancer Social History Preferred Language: Guinean Communication Ability: Effective Baby Counselor Required: No Beliefs That Will Affect Care: None marital status: / Current Living Situation: Family Current Living Situation Comment: family care current occupational status: retired current occupation: worked at [employer] Other Information That Helps Us Care for You: No other: daughter/son-in-law staying with patient in [place] Feels Safe at Home: Yes Safety Concerns: Feels Safe At This Time Smoking Status: Never smoker Second Hand Exposure: No ; Hx Alcohol Use: No Hx Substance Use: No Physical Exam Physical Exam: General: Chronically ill appearing. HEENT: Head is atraumatic, normocephalic. EOMs intact. Sclerae anicteric. Facies symmetric. No perioral cyanosis. Neck: No JVD. Carotid upstrokes +2 bilaterally without bruits. JVP is just above the clavicle sitting upright. Chest and Lungs: Diminished breath sounds in bilateral bases with occasional crackles in the lung bases. No wheezes noted. CVS: S1 and S2 are regular with a grade 2/6 basal systolic murmur heard best over the right 2nd intercostal space, and a grade 1/6 apical holosystolic murmur. No diastolic murmurs, gallops, or rubs. PMI is laterally displaced.. No lifts, heaves, or thrills. No abdominal aortic or renal bruits. Abdominal Exam: Bowel sounds present. No masses, organomegaly, or tenderness. Extremities: No clubbing. Intact radial pulses bilaterally. Trace pedal edema bilaterally, this +1 pitting edema the posterior legs and extends to the level of the sacrum. Neurologic Exam: Patient is awake and interactive. Confused at times. TELEMETRY: -- Sinus rhythm with a wide complex QRS. Results & Data ([facility]) Vital Signs (Past 12 Hours) Vital Signs Temp Pulse Pulse Resp BP BP Pulse Ox 01/06/20 03:52 36.8 C 61 16 135/49 L 99 01/05/20 23:38 36.8 C 56 L 18 126/93 100 01/05/20 23:30 53 L 01/05/20 22:00 66 23 01/05/20 21:58 66 20 136/63 Laboratory Results Laboratory Results - last 24 hr 01/05/20 01/05/20 01/05/20 14:55 14:55 14:55 WBC 6.82 RBC 5.00 Hgb 15.6 Hct 48.1 H MCV 96.2 MCH 31.2 MCHC 32.4 RDW Std Deviation 57.6 H RDW Coeff of Tru 16.8 H Plt Count 159 MPV 12.8 H Immature Gran % (Auto) 0.1 Neut % (Auto) 79.1 Lymph % (Auto) 10.6 [place] % (Auto) 8.1 Eos % (Auto) 1.8 Baso % (Auto) 0.3 Immature Gran # (Auto) 0.01 Neut # (Auto) 5.40 Lymph # (Auto) 0.72 L [place] # (Auto) 0.55 Eos # (Auto) 0.12 Baso # (Auto) 0.02 Absolute Nucleated RBC 0.12 H Nucleated RBC % (auto) 1.8 ESR PT Cancelled INR Cancelled APTT PTT Ratio VBG pH VBG pCO2 VBG pO2 VBG HCO3 VBG O2 Saturation VBG Base Excess Barometric Pressure Sodium Potassium Chloride Carbon Dioxide Anion Gap BUN Creatinine Est Cr Clr Drug Dosing Est GFR ( Amer) Est GFR (Non-Af Amer) BUN/Creatinine Ratio Glucose POC Glucose Lactate 2.2 H* Uric Acid Calcium Total Bilirubin AST ALT Alkaline Phosphatase Ammonia Troponin I Total Protein Albumin Globulin Albumin/Globulin Ratio Vitamin B12 Urine Color Urine Appearance Urine pH Ur Specific [place] Urine Protein Urine Glucose (UA) Urine Ketones Urine Blood Urine Nitrite Urine Bilirubin Urine Urobilinogen Ur Leukocyte Esterase Nasal Screen MRSA (PCR) 01/05/20 01/05/20 01/05/20 14:55 14:55 15:10 WBC RBC Hgb Hct MCV MCH MCHC RDW Std Deviation RDW Coeff of Tru Plt Count MPV Immature Gran % (Auto) Neut % (Auto) Lymph % (Auto) [place] % (Auto) Eos % (Auto) Baso % (Auto) Immature Gran # (Auto) Neut # (Auto) Lymph # (Auto) [place] # (Auto) Eos # (Auto) Baso # (Auto) Absolute Nucleated RBC Nucleated RBC % (auto) ESR 20 PT INR APTT PTT Ratio VBG pH VBG pCO2 VBG pO2 VBG HCO3 VBG O2 Saturation VBG Base Excess Barometric Pressure Sodium 138 Potassium Chloride 102 Carbon Dioxide 29 Anion Gap 7.0 BUN 70 H Creatinine 2.75 H Est Cr Clr Drug Dosing 11.2 Est GFR ( Amer) 17.1 Est GFR (Non-Af Amer) 14.8 BUN/Creatinine Ratio 25.6 H Glucose 192 H POC Glucose Lactate Uric Acid Calcium 8.6 Total Bilirubin 0.9 AST ALT 60 Alkaline Phosphatase 208 H Ammonia Troponin I 0.142 H* Total Protein 7.0 Albumin 3.0 L Globulin 4.0 Albumin/Globulin Ratio 0.8 L Vitamin B12 Urine Color Yellow Urine Appearance Clear Urine pH 5.0 Ur Specific [place] 1.012 Urine Protein Negative Urine Glucose (UA) Negative Urine Ketones Negative Urine Blood Negative Urine Nitrite Negative Urine Bilirubin Negative Urine Urobilinogen Negative Ur Leukocyte Esterase Negative Nasal Screen MRSA (PCR) 01/05/20 01/05/20 01/05/20 16:32 16:32 16:32 WBC RBC Hgb Hct MCV MCH MCHC RDW Std Deviation RDW Coeff of Tru Plt Count MPV Immature Gran % (Auto) Neut % (Auto) Lymph % (Auto) [place] % (Auto) Eos % (Auto) Baso % (Auto) Immature Gran # (Auto) Neut # (Auto) Lymph # (Auto) [place] # (Auto) Eos # (Auto) Baso # (Auto) Absolute Nucleated RBC Nucleated RBC % (auto) ESR PT 12.4 H INR 1.2 H APTT 29.3 PTT Ratio 1.1 VBG pH VBG pCO2 VBG pO2 VBG HCO3 VBG O2 Saturation VBG Base Excess Barometric Pressure Sodium Potassium 5.0 Chloride Carbon Dioxide Anion Gap BUN Creatinine Est Cr Clr Drug Dosing Est GFR ( Amer) Est GFR (Non-Af Amer) BUN/Creatinine Ratio Glucose POC Glucose Lactate Uric Acid 13.5 H Calcium Total Bilirubin AST 38 H ALT Alkaline Phosphatase Ammonia Troponin I Total Protein Albumin Globulin Albumin/Globulin Ratio Vitamin B12 Urine Color Urine Appearance Urine pH Ur Specific [place] Urine Protein Urine Glucose (UA) Urine Ketones Urine Blood Urine Nitrite Urine Bilirubin Urine Urobilinogen Ur Leukocyte Esterase Nasal Screen MRSA (PCR) 01/05/20 01/05/20 01/05/20 18:10 18:15 18:15 WBC RBC Hgb Hct MCV MCH MCHC RDW Std Deviation RDW Coeff of Tru Plt Count MPV Immature Gran % (Auto) Neut % (Auto) Lymph % (Auto) [place] % (Auto) Eos % (Auto) Baso % (Auto) Immature Gran # (Auto) Neut # (Auto) Lymph # (Auto) [place] # (Auto) Eos # (Auto) Baso # (Auto) Absolute Nucleated RBC Nucleated RBC % (auto) ESR PT INR APTT PTT Ratio VBG pH 7.37 VBG pCO2 48 VBG pO2 54 VBG HCO3 27 VBG O2 Saturation 86.3 VBG Base Excess 1.1 Barometric Pressure 728.2 Sodium Potassium Chloride Carbon Dioxide Anion Gap BUN Creatinine Est Cr Clr Drug Dosing Est GFR ( Amer) Est GFR (Non-Af Amer) BUN/Creatinine Ratio Glucose POC Glucose Lactate Uric Acid Calcium Total Bilirubin AST ALT Alkaline Phosphatase Ammonia 18.0 Troponin I Total Protein Albumin Globulin Albumin/Globulin Ratio Vitamin B12 > 2000 H Urine Color Urine Appearance Urine pH Ur Specific [place] Urine Protein Urine Glucose (UA) Urine Ketones Urine Blood Urine Nitrite Urine Bilirubin Urine Urobilinogen Ur Leukocyte Esterase Nasal Screen MRSA (PCR) 01/05/20 01/05/20 01/05/20 19:15 21:00 21:49 WBC RBC Hgb Hct MCV MCH MCHC RDW Std Deviation RDW Coeff of Tru Plt Count MPV Immature Gran % (Auto) Neut % (Auto) Lymph % (Auto) [place] % (Auto) Eos % (Auto) Baso % (Auto) Immature Gran # (Auto) Neut # (Auto) Lymph # (Auto) [place] # (Auto) Eos # (Auto) Baso # (Auto) Absolute Nucleated RBC Nucleated RBC % (auto) ESR PT INR APTT PTT Ratio VBG pH VBG pCO2 VBG pO2 VBG HCO3 VBG O2 Saturation VBG Base Excess Barometric Pressure Sodium Potassium Chloride Carbon Dioxide Anion Gap BUN Creatinine Est Cr Clr Drug Dosing Est GFR ( Amer) Est GFR (Non-Af Amer) BUN/Creatinine Ratio Glucose POC Glucose 153 H Lactate Uric Acid Calcium Total Bilirubin AST ALT Alkaline Phosphatase Ammonia Troponin I 0.153 H* Total Protein Albumin Globulin Albumin/Globulin Ratio Vitamin B12 Urine Color Urine Appearance Urine pH Ur Specific [place] Urine Protein Urine Glucose (UA) Urine Ketones Urine Blood Urine Nitrite Urine Bilirubin Urine Urobilinogen Ur Leukocyte Esterase Nasal Screen MRSA (PCR) Negative 01/06/20 01/06/20 04:19 08:49 WBC RBC Hgb Hct MCV MCH MCHC RDW Std Deviation RDW Coeff of Tru Plt Count MPV Immature Gran % (Auto) Neut % (Auto) Lymph % (Auto) [place] % (Auto) Eos % (Auto) Baso % (Auto) Immature Gran # (Auto) Neut # (Auto) Lymph # (Auto) [place] # (Auto) Eos # (Auto) Baso # (Auto) Absolute Nucleated RBC Nucleated RBC % (auto) ESR PT INR APTT PTT Ratio VBG pH VBG pCO2 VBG pO2 VBG HCO3 VBG O2 Saturation VBG Base Excess Barometric Pressure Sodium 142 Potassium 4.1 D Chloride 107 Carbon Dioxide 29 Anion Gap 6.0 BUN 68 H Creatinine 2.43 H D Est Cr Clr Drug Dosing 12.7 Est GFR ( Amer) 19.9 Est GFR (Non-Af Amer) 17.2 BUN/Creatinine Ratio 28.2 H Glucose 118 H POC Glucose 106 H Lactate Uric Acid Calcium 8.3 L Total Bilirubin 0.8 AST 33 ALT 45 Alkaline Phosphatase 166 H Ammonia Troponin I Total Protein 5.8 L Albumin 2.5 L Globulin 3.3 Albumin/Globulin Ratio 0.8 L Vitamin B12 Urine Color Urine Appearance Urine pH Ur Specific [place] Urine Protein Urine Glucose (UA) Urine Ketones Urine Blood Urine Nitrite Urine Bilirubin Urine Urobilinogen Ur Leukocyte Esterase Nasal Screen MRSA (PCR) Medications Administered Active Medications Generic Name Dose Route Start Last Admin Trade Name Freq PRN Reason Stop Dose Admin Acetaminophen 650 mg 05/05/20 20:55 Tylenol PO 02/04/20 20:54 Q4H PRN Pain or Fever Artificial Tears 1 drops 01/05/20 21:15 01/05/20 21:52 Artificial Tears OP 02/04/20 21:14 1 drops HS ISIAH Administration Aspirin 81 mg 01/06/20 14:00 Ecotrin Ectab PO 02/05/20 13:59 DAILY@1400 ISIAH Dextrose 25 - 50 ml 01/05/20 21:15 Dextrose 50% IV 02/04/20 21:14 UD PRN Hypoglycemia Protocol Protocol Duloxetine HCl 20 mg 01/06/20 09:00 01/06/20 08:57 Cymbalta PO 02/05/20 08:59 20 mg DAILY ISIAH Administration Glucagon 1 mg 01/05/20 21:15 Glucagen IM 02/04/20 21:14 UD PRN Hypoglycemia Protocol Protocol Glucose 15 - 30 gm 01/05/20 21:15 Glucose 40% PO 02/04/20 21:14 UD PRN Hypoglycemia Protocol Protocol Glucose 4 - 8 tabs 01/05/20 21:15 Dex4 Glucose PO 02/04/20 21:14 UD PRN Hypoglycemia Protocol Protocol Heparin Sodium (Porcine) 5,000 units 01/05/20 21:00 01/06/20 08:57 Heparin Sodium (Porcine) SQ 02/04/20 20:59 5,000 units Q12 ISIAH Administration Bumetanide 2 mg/ Syringe 8 mls @ 4 mls/min 01/05/20 21:00 01/06/20 08:56 IV 02/04/20 20:59 4 mls/min BID ISIAH Administration Dobutamine HCl/Dextrose 500 mg in 250 mls @ 4.313 mls/hr 01/05/20 20:55 01/06/20 06:50 Dobutamine / D5w IV 02/04/20 20:54 2.49 mcg/kg/min .Q24H ISIAH 4.3 mls/hr Titration Protocol 2.5 MCG/KG/MIN Insulin Aspart 0 units 01/05/20 21:00 01/06/20 08:54 Novolog Flexpen SC 02/04/20 20:59 Not Given ACHS ISIAH Levothyroxine Sodium 100 mcg 01/05/20 21:00 01/05/20 21:34 Synthroid PO 02/04/20 20:59 100 mcg PM ISIAH Administration Metoprolol Tartrate 12.5 mg 01/05/20 21:00 01/06/20 08:56 Lopressor PO 02/04/20 20:59 12.5 mg BID ISIAH Administration Miscellaneous 15 - 30 gm 01/05/20 21:15 Carbohydrates For Hypoglycemia PO 02/04/20 21:14 UD PRN Hypoglycemia Treatment Multi-Ingredient Cream 1 appln 01/05/20 21:07 Lacri-Lube OP 02/04/20 21:06 DAILY PRN DRY EYE Ondansetron HCl 4 mg 01/05/20 20:55 Zofran IV 02/04/20 20:54 Q6H PRN Nausea Ropinirole HCl 1 mg 01/05/20 21:00 01/05/20 21:33 Requip PO 02/04/20 20:59 1 mg HS ISIAH Administration PG Care Time/CCT Total # of Minutes Spent Total Time Spent with Patient: Total time spent is greater than 50% in coordination of care (as documented) at patient's floor/unit and/or counseling patient: Coding Level of Care Code 32341 Initial Inpt Care Lvl 3 Diagnoses Combined systolic and diastolic congestive heart failure I50.43 Heart failure chronicity: acute on chronic Cardiomyopathy I42.9 LBBB (left bundle branch block) I44.7 Acute kidney failure N17.9 Acute renal failure type: unspecified Mixed restrictive and obstructive lung disease J44.9; J98.4 Chronic respiratory failure with hypoxia J96.11 (1) Acute kidney failure Acute renal failure type: unspecified Qualified Code(s): N17.9 - Acute kidney failure, unspecified (2) Combined systolic and diastolic congestive heart failure Heart failure chronicity: acute on chronic Qualified Code(s): I50.43 - Acute on chronic combined systolic (congestive) and diastolic (congestive) heart failure
--- NOTE | 2020-01-06 11:06 | Hospitalist Progress Note ---
Date of Service January 06, 2020 Assessment & Plan (1) Combined systolic and diastolic congestive heart failure: With acute on chronic combined systolic and diastolic CHF Patient with marked volume overload despite escalating doses of bumex as outpatient. EF on echo 11/2019 30-35%. Her baseline CKD (now with superimposed COLTEN) along with ?cirrhosis will also contribute to significant volume status issues. Based on imaging upon admission she also has b/l pleural effusions - at least moderate in size. Per daughter has needed thoracentesis in the past. Her COLTEN is likely due to cardio-renal syndrome. Much improved, mental status is improved, is on home levels of O2 at 2 L, no respiratory distress I's and O's and weight not reflective of effective diuresis -Continue dobutamine infusion to enhance her diuresis 2.5mcg/kg/min. -Continue bumex 2mg IV BID ,Adjust bumex as needed. Continue beta leesa-is on metoprolol tartrate at home-should be on Toprol-XL for her cardiomyopathy but defer to cardiology -Continue to hold GIULIANA in light of COLTEN although it is improving today. Appreciate cardiology consultation -Continue telemetry (2) Acute kidney failure: Likely due to decompensated CHF improving now with diuresis. See discussion above in CHF. BMP daily. Daughter believes that her mother would likely not want hemodialysis. CT of the abdomen/pelvis on admission w/o signs of obstruction. Angelo in place. (3) Metabolic encephalopathy: Uncertain etiology but does seem improved with diuresis and dobutamine infusion making volume overload and CHF with possibility. Has been altered for 1-2 months and mentation has steadily declined. Is now awake and alert and eating and out of bed to chair Normal ammonia-was checked in light of ?cirrhosis on imaging. Normal VBG, which r/o hypercarbia. vitamin B12 level normal TSH most recently was normal. No obvious infectious source - u/a wnl, no pneumonia, etc. Continue supportive care. Daughter states mentation has been the same pre and post cymbalta initiation so unlikely contributing. Patient has been taking ropinirole for long time - doubt contributing. COLTEN could be contributing which is also now improving. (4) Chronic respiratory failure with hypoxia: Initiated on NC O2 last week by her cardiology provider. Likely due to restrictive/obstructive lung disease as well as decompensated CHF. Cont NC O2. (5) Diabetic peripheral neuropathy associated with type 2 diabetes mellitus: Patient w/ very poor appetite which is improved today. On minimal amount of lantus at home - hold for now. Novolog - loose sliding scale. 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 due to VICTORIA? other? (12) CAD (coronary artery disease): no obvious ischemic symptoms by history. troponin elevated minimally and stable x2-- likely myocardial demand ischemia +/- COLTEN. doubt ACS. (13) Elevated troponin: see above (14) Stenosis of aorta: as seen on CT abdomen/pelvis on admission-severe stenosis suspect this is causing inflow disease to legs causing the cold extremities that daughter has noted -Not a good candidate for any intervention at this time -Continue aspirin and statin (15) Swelling of right foot: I suspect right mid-foot gout and right great toe podagra; I do not think this is cellulitis (received IV abx in ER) uric acid level markedly elevated poor candidate for prednisone or NSAIDs follow for now would defer on additional antibiotics for now (16) DVT prophylaxis: at high risk of DVT given immobility heparin 5000 BID daughter updated by phone Improving Disposition-patient adamant about going home-possible in the next 1 to 2 days Consider palliative care consultation Admission and Anticipated Discharge Date Admission Date: January 05, 2020 Subjective Patient is out of bed to chair today and eating a meal. She insists that she is going home today and was not convinced otherwise. I discussed her care with her daughter on the phone who then talked to her mom the phone and convinced her that she had to stay in the hospital overnight. She remains on dobutamine drip and has had some urine output but not diuresing much. She appears much improved compared to what is described as her previous mental status. She denies shortness of breath or chest pain, no nausea or abdominal pains. Denies any foot or toe pain despite the erythema on her foot. Telemetry with normal sinus rhythm Review of Systems Review of Systems: All systems reviewed & are unremarkable except as noted in HPI & below Physical Exam Constitutional: WD/WN, vitals as above Eyes: + anicteric sclerae Neck: trachea midline, no thyromegaly Respiratory: normal respiratory effort; no labored breathing Auscultation: + diminished lung sounds (Throughout) and + crackles (Bibasilar); no rhonchi and no wheezes Cardiovascular: RRR, no murmur, no edema Chest (Breasts): Chest: normal inspection of chest Gastrointestinal (Abdomen): normal bowel sounds, soft, nontender, no hepatosplenomegaly Musculoskeletal: Extremities: no cyanosis and no clubbing Ankle: + skin erythema (Right great toe and dorsal foot at MTP joint with erythema and mild edema, mild tenderness to palpation) Skin: no rashes, warm and dry Neurologic: moves all extremities and awake; no focal motor deficits Psychiatric: Orientation: alert, oriented to person, cooperative and + guarded; + not oriented to place and + not oriented to time Affect: + flat affect Insight: + poor insight Lymphatic: no lymphedema Results & Data Results & Data ([facility]) Vital Signs (Past 12 Hours) Vital Signs Temp Pulse Pulse Resp BP Pulse Ox 01/06/20 08:00 61 01/06/20 03:52 36.8 C 61 16 135/49 L 99 01/05/20 23:38 36.8 C 56 L 18 126/93 100 01/05/20 23:30 53 L Laboratory Results Labs reviewed PG Care Time/CCT Total # of Minutes Spent Total Time Spent with Patient: Total time spent is greater than 50% in coordination of care (as documented) at patient's floor/unit and/or counseling patient: Coding Level of Care Code 93112 Subseq Hosp Care Lvl 3 Diagnoses Combined systolic and diastolic congestive heart failure I50.43 Heart failure chronicity: acute on chronic Acute kidney failure N17.9 Acute renal failure type: unspecified Metabolic encephalopathy G93.41 Chronic respiratory failure with hypoxia J96.11 Diabetic peripheral neuropathy associated with type 2 diabetes mellitus E11.42 CKD (chronic kidney disease) stage 3, GFR 30-59 ml/min N18.3 Hypothyroidism E03.9 Hypothyroidism type: acquired Mixed restrictive and obstructive lung disease J44.9; J98.4 S/P TAVR (transcatheter aortic valve replacement) Z95.2 Vascular dementia F01.50 Dementia behavioral disturbance: without behavioral disturbance Cirrhosis K74.69 Hepatic cirrhosis type: other cirrhosis CAD (coronary artery disease) I25.10 Associated angina: without angina Coronary Disease-Associated Artery/Lesion type: [place] artery [place] vs. transplanted heart: [place] heart Elevated troponin R79.89 Stenosis of aorta Q25.3 Swelling of right foot M79.89 DVT prophylaxis Z29.9 (1) Vascular dementia Dementia behavioral disturbance: without behavioral disturbance Qualified Code(s): F01.50 - Vascular dementia without behavioral disturbance (2) Acute kidney failure Acute renal failure type: unspecified Qualified Code(s): N17.9 - Acute kidney failure, unspecified (3) Combined systolic and diastolic congestive heart failure Heart failure chronicity: acute on chronic Qualified Code(s): I50.43 - Acute on chronic combined systolic (congestive) and diastolic (congestive) heart failure (4) CAD (coronary artery disease) Associated angina: without angina Coronary Disease-Associated Artery/Lesion type: [place] artery [place] vs. transplanted heart: [place] heart Qualified Code(s): I25.10 - Atherosclerotic heart disease of [place] coronary artery without angina pectoris (5) Hypothyroidism Hypothyroidism type: acquired Qualified Code(s): E03.9 - Hypothyroidism, unspecified (6) Cirrhosis Hepatic cirrhosis type: other cirrhosis Qualified Code(s): K74.69 - Other cirrhosis of liver
[2020-01-06] MEDS: ASPIRIN 81 MG ECTAB PO SCH (14:54)
[2020-01-06] MEDS: MELATONIN 3 MG TAB PO SCH (18:12)
[2020-01-06] MEDS: ROPINIROLE HCL 1 MG TABLET PO SCH (20:33)
[2020-01-06] MEDS: LEVOTHYROXINE SODIUM 100 MCG TABLET PO SCH (20:33)
[2020-01-06] MEDS: ARTIFICIAL TEARS OP SCH (20:35)
[2020-01-06] MEDS: DOBUTamine / D5W 500 MG/250 ML BAG IV SCH (20:38)
[2020-01-07 07:10] LABS: Basophils # (auto) 0.03 K/uL (0-0.2); Basophils % (auto) 0.5 %; Eosinophils # (auto) 0.07 K/uL (0-0.5); Eosinophils % (auto) 1.1 %; Hematocrit (blood only) 40.2 % (37-47); Hemoglobin 13.2 g/dL (12.0-16.0); Immature Granulocytes # (auto) 0.01 K/uL (0.00-0.02); Immature Granulocytes % (auto) 0.2 %; Lymphocytes # (auto) 0.71 K/uL (1.2-3.4); Lymphocytes % (auto) 10.8 %; Mean Corpuscular Hemoglobin 31.2 pg (25-34); Mean Corpuscular Hgb Conc 32.8 g/dL (32-36); Mean Platelet Volume 11.7 fL (7.4-10.4); Monocytes % (auto) 10.7 %; Neutrophils # (auto) 5.03 K/uL (1.4-6.5); Neutrophils % (auto) 76.7 %; Platelet Count 132 K/uL (130-400); RDW Coefficient of Variation 16.9 % (11.5-14.5); RDW Standard Deviation 56.4 fL (36.4-46.3); Red Blood Count 4.23 M/uL (4.2-5.4); White Blood Count 6.55 K/uL (4.8-10.8)
[2020-01-07 07:37] LABS: BUN Creatinine Ratio 29.8 (10-20); Calcium 8.5 mg/dl (8.5-10.1); Creatinine Clr Calc Pharmacy 14.1 ml/min; Est GFR (African American) 22.7; Est GFR (Non-African American) 19.6; Magnesium 2.5 mg/dl (1.8-2.4)
[2020-01-07] MEDS: DULOXETINE HCL 20 MG CAP PO SCH (08:01)
[2020-01-07] MEDS: METOPROLOL TARTRATE 25 MG TAB PO SCH ×2 (08:01→21:16)
[2020-01-07] MEDS: HEPARIN SOD 5,000 UNIT/0.5 ML VIAL SQ SCH ×2 (08:02→21:24)
[2020-01-07] MEDS: INSULIN ASPART 100 UNITS/ML 3 ML PEN SC SCH ×4 (08:03→21:22)
[2020-01-07] MEDS: BUMETANIDE 2 MG in SYRINGE 0 ML IV SCH (09:49)
--- NOTE | 2020-01-07 10:01 | Cardiology Progress Note ---
Date of Service January 07, 2020 Assessment & Plan (1) Combined systolic and diastolic congestive heart failure: Mrs. Giraldo is an 89-year-old female with a history of Chronic Hypoxic Respiratory Failure, Mixed Restrictive and Obstructive Lung Disease, Hypoxemia, Hypersomnolence, Vascular Dementia, CVA's, PLMD, Aortic Valve Disease s/p TAVR 11/10/15, CAD (70% Ostial D1 Stenosis on Cardiac Catheterization 10/16/2018), Hypertension, Dyslipidemia, Chronic Systolic and Diastolic CHF, CKD, Type 2 Diabetes Mellitus (insulin requiring), CKD, Diabetic Neuropathy, Recent Hyponatremia, Hypothyroidism, Chronic Fatigue, Chronic LBBB, Chronically Elevated Troponin I Level, and a Cardiomyopathy (LVEF 30% to 35% on Echo 11/06/2019) who has had a progressive decline in her overall health status and functional status beginning in Mid November 2019. Over the past 2 weeks, and particularly over this past weekend -- patient has had progressive fluid retention, weight gain, peripheral edema, and dyspnea secondary to Acute on Chronic Combined Systolic and Diastolic CHF. Despite escalating doses of outp atient Bumex, the patient's status became progressively worse so she was brought to the hospital for admission. Patient is currently sitting up at the edge of her bed, and states that she is feeling much better. She appears to be mentating more clearly as well. She denies any shortness of breath, orthopnea, or PND. Her peripheral edema has improved as well. However, her neck veins appear more distended today than they did yesterday and it appears that her body weight is up compared to yesterday, despite having a cumulative negative urine output of 306.9 ml. Additionally, the patient lost her Angelo catheter so I&Os have not been accurate since that time as she is incontinent of urine and had unmeasured urinary output. Therefore, suspect that her body weight is incorrect as she should not have weight gain with a negative fluid balance. This is most likely because she was weighed on different scales or bed scales in her transition from the ICU to the PCU. Patient is feeling better and her serum creatinine continues to improve -- therefore we will try to push her diuretic. Recommend the followin. Increase Bumex to 3 mg IV b.i.d.. 2. Continue Dobutamine drip. 3. Continue Lopressor 12.5 mg b.i.d.. 4. Consider adding an ACEI or an ARB (patient had worsening renal function on Entresto so it was stopped, patient will not take this medications). 5. Monitor daily body weights, daily I&Os -- measure on standing scale going forward if possible. 6. Maintain a 2 gram low-sodium diet. 7. Continue fluid restriction at 1800 ml/day. Continue to closely follow her over the next 24 hours on this regimen of increased diuretic. (2) Cardiomyopathy: Most recent Echocardiogram 11/06/2019 showed an LVEF of 30% to 35%. -- Continue tank terminal gauger beta leesa. -- Consider adding an ACEI or an ARB with close monitoring of renal function. (3) LBBB (left bundle branch block): Her LBBB is chronic and her QRS duration is > 150 msec, with the presence of decreased LV systolic function being discovered on 11/06/2019 -- ? could consider a Bi-V device for cardiac resynchronization therapy at some point. (4) Acute kidney failure: -- Creatinine has gone from 2.75 mg/dl down 2.18 mg/dl since being admitted. -- Continue to monitor daily laboratories. (5) Mixed restrictive and obstructive lung disease: -- Continue home O2 following discharge. (6) Chronic respiratory failure with hypoxia: -- Secondary to mixed restrictive and obstructive lung disease and certainly worsened with low output heart failure. -- Continue supplemental O2. -- Treat underlying CHF, increase IV Bumex to 3 mg b.i.d. and continue dobutamine drip (Dobutamine will likely be discontinued tomorrow). ADDENDUM (Dr. Stewart): Patient seen and examined. Agree with plan as outlined above by Mr. Guilherme JEAN. Although she appears to be improving clinically, her weight and neck veins are both elevated today, therefore recommend more aggressive diuresis while she is an inpatient as well as continued dobutamine for 24 hours further. Admission and Anticipated Discharge Date Admission Date: January 05, 2020 Subjective Mrs. Giraldo is being seen in room 238-2, she was transferred out of the ICU yesterday. Patient is currently sitting up at the edge of her bed, and states that she is feeling much better. She appears to be mentating more clearly as well. She denies any shortness of breath, orthopnea, or PND. She denies any chest pain, heaviness, tightness, or pressure. She denies any palpitations, syncope, or near syncope. It appears that her body weight is up compared to yesterday, and the patient lost her Angelo catheter so I&Os have not been accurate since that time as she is incontinent of urine and had unmeasured urinary output. Nonetheless, she has a cumulative negative urine output of 306.9 ml. Therefore, suspect that her body weight is incorrect as she should not have weight gain with a negative fluid balance. This is most likely because she was weighed on different scales or bed scales in her transition from the ICU to the PCU. Her creatinine continues to improve, it is down to 2.18 mg/dl from 2.75 mg/dl at the time of admission. BUN is elevated as well. Physical Exam Physical Exam: GENERAL: Patient in no acute distress. HEENT: Head is atraumatic, normocephalic. EOM's intact. Facies symmetric. No perioral cyanosis. NECK: JVD is present sitting upright. JVP appears to be fdc to the angle of the jaw sitting upright with large V waves present. Carotid upstrokes are + 2 bilaterally. No bruits are noted. CHEST/LUNGS: Diminished breath sounds in bilateral bases, otherwise clear. No wheezes, rales, or rhonchi. CVS: S1 and S2 are regular with a grade 2/6 basal systolic murmur heard best over the right 2nd intercostal space, and a grade 1/6 apical holosystolic murmur. No diastolic murmurs, gallops, or rubs. PMI is laterally displaced.. No lifts, heaves, or thrills. No abdominal aortic or renal bruits. ABDOMINAL EXAM: Bowel sounds present. No masses, organomegaly, or tenderness. EXTREMITIES: No clubbing. Intact radial pulses bilaterally. Trace pedal edema of the right foot. NEUROLOGIC EXAM: Patient is awake and interactive. Patient is not somnolent and she appears less confused today. She follows commands. TELEMETRY: -- Sinus rhythm with a wide complex QRS. Results & Data ([facility]) Vital Signs (Past 12 Hours) Vital Signs Temp Pulse Pulse Resp BP BP Pulse Ox 01/07/20 07:35 36.4 C L 73 18 132/64 96 01/07/20 07:30 67 01/07/20 07:00 70 01/07/20 06:30 74 05/07/20 06:00 77 01/07/20 05:30 72 01/07/20 05:00 76 01/07/20 04:30 65 01/07/20 04:18 36.4 C L 65 20 138/63 98 01/07/20 04:00 72 01/07/20 03:30 72 01/07/20 03:00 70 01/07/20 02:30 70 01/07/20 02:00 70 01/07/20 01:30 70 01/07/20 01:00 69 01/07/20 00:30 70 01/07/20 00:00 64 01/06/20 23:30 64 01/06/20 23:21 66 01/06/20 23:10 36.4 C L 65 20 125/50 L 96 01/06/20 22:00 64 18 Laboratory Results Laboratory Results - last 24 hr 01/06/20 01/06/20 01/06/20 11:22 16:28 20:29 WBC RBC Hgb Hct MCV MCH MCHC RDW Std Deviation RDW Coeff of Tru Plt Count MPV Immature Gran % (Auto) Neut % (Auto) Lymph % (Auto) Gem % (Auto) Eos % (Auto) Baso % (Auto) Immature Gran # (Auto) Neut # (Auto) Lymph # (Auto) Gem # (Auto) Eos # (Auto) Baso # (Auto) Sodium Potassium Chloride Carbon Dioxide Anion Gap BUN Creatinine Est Cr Clr Drug Dosing Est GFR ( Amer) Est GFR (Non-Af Amer) BUN/Creatinine Ratio Glucose POC Glucose 144 H 134 H 140 H Calcium Magnesium 01/07/20 01/07/20 01/07/20 06:57 06:57 07:18 WBC 6.55 RBC 4.23 Hgb 13.2 Hct 40.2 MCV 95.0 MCH 31.2 MCHC 32.8 RDW Std Deviation 56.4 H RDW Coeff of Tru 16.9 H Plt Count 132 MPV 11.7 H Immature Gran % (Auto) 0.2 Neut % (Auto) 76.7 Lymph % (Auto) 10.8 Gem % (Auto) 10.7 Eos % (Auto) 1.1 Baso % (Auto) 0.5 Immature Gran # (Auto) 0.01 Neut # (Auto) 5.03 Lymph # (Auto) 0.71 L Gem # (Auto) 0.70 H Eos # (Auto) 0.07 Baso # (Auto) 0.03 Sodium 142 Potassium 4.0 Chloride 106 Carbon Dioxide 33 H Anion Gap 3.0 BUN 65 H Creatinine 2.18 H Est Cr Clr Drug Dosing 14.1 Est GFR ( Amer) 22.7 Est GFR (Non-Af Amer) 19.6 BUN/Creatinine Ratio 29.8 H Glucose 117 H POC Glucose 109 H Calcium 8.5 Magnesium 2.5 H Medications Administered Active Medications Generic Name Dose Route Start Last Admin Trade Name Freq PRN Reason Stop Dose Admin Acetaminophen 650 mg 01/05/20 20:55 Tylenol PO 02/04/20 20:54 Q4H PRN Pain or Fever Artificial Tears 1 drops 01/05/20 21:15 01/06/20 20:35 Artificial Tears OP 02/04/20 21:14 1 drops HS ISIAH Administration Aspirin 81 mg 01/06/20 14:00 01/06/20 14:54 Ecotrin Ectab PO 02/05/20 13:59 81 mg DAILY@1400 ISIAH Administration Atorvastatin Calcium 20 mg 01/07/20 21:00 Lipitor PO 02/06/20 20:59 HS ISIAH Dextrose 25 - 50 ml 01/05/20 21:15 Dextrose 50% IV 02/04/20 21:14 UD PRN Hypoglycemia Protocol Protocol Duloxetine HCl 20 mg 01/06/20 09:00 01/07/20 08:01 Cymbalta PO 02/05/20 08:59 20 mg DAILY ISIAH Administration Glucagon 1 mg 01/05/20 21:15 Glucagen IM 02/04/20 21:14 UD PRN Hypoglycemia Protocol Protocol Glucose 15 - 30 gm 01/05/20 21:15 Glucose 40% PO 02/04/20 21:14 UD PRN Hypoglycemia Protocol Protocol Glucose 4 - 8 tabs 01/05/20 21:15 Dex4 Glucose PO 02/04/20 21:14 UD PRN Hypoglycemia Protocol Protocol Heparin Sodium (Porcine) 5,000 units 01/05/20 21:00 01/07/20 08:02 Heparin Sodium (Porcine) SQ 02/04/20 20:59 5,000 units Q12 ISIAH Administration Bumetanide 2 mg/ Syringe 8 mls @ 4 mls/min 01/05/20 21:00 01/07/20 09:49 IV 02/04/20 20:59 4 mls/min BID ISIAH Administration Dobutamine HCl/Dextrose 500 mg in 250 mls @ 4.313 mls/hr 01/05/20 20:55 01/07/20 07:13 Dobutamine / D5w IV 02/04/20 20:54 2.5 mcg/kg/min .Q24H ISIAH 4.3 mls/hr Titration Protocol 2.5 MCG/KG/MIN Insulin Aspart 0 units 01/05/20 21:00 01/07/20 08:03 Novolog Flexpen SC 02/04/20 20:59 Not Given ACHS ISIAH Levothyroxine Sodium 100 mcg 01/05/20 21:00 01/06/20 20:33 Synthroid PO 02/04/20 20:59 100 mcg PM ISIAH Administration Melatonin 3 mg 01/06/20 18:00 01/06/20 18:12 Melatonin PO 02/05/20 17:59 3 mg HS ISIAH Administration Metoprolol Tartrate 12.5 mg 01/05/20 21:00 01/07/20 08:01 Lopressor PO 02/04/20 20:59 12.5 mg BID ISIAH Administration Miscellaneous 15 - 30 gm 01/05/20 21:15 Carbohydrates For Hypoglycemia PO 02/04/20 21:14 UD PRN Hypoglycemia Treatment Multi-Ingredient Cream 1 appln 01/05/20 21:07 Lacri-Lube OP 02/04/20 21:06 DAILY PRN DRY EYE Ondansetron HCl 4 mg 01/05/20 20:55 Zofran IV 02/04/20 20:54 Q6H PRN Nausea Ropinirole HCl 1 mg 01/05/20 21:00 01/06/20 20:33 Requip PO 02/04/20 20:59 1 mg HS ISIAH Administration PG Care Time/CCT Total # of Minutes Spent Total Time Spent with Patient: Total time spent is greater than 50% in coordination of care (as documented) at patient's floor/unit and/or counseling patient: Coding Level of Care Code 72090 Subseq Hosp Care Lvl 3 Diagnoses Combined systolic and diastolic congestive heart failure I50.43 Heart failure chronicity: acute on chronic Cardiomyopathy I42.9 LBBB (left bundle branch block) I44.7 Acute kidney failure N17.9 Acute renal failure type: unspecified Mixed restrictive and obstructive lung disease J44.9; J98.4 Chronic respiratory failure with hypoxia J96.11 (1) Acute kidney failure Acute renal failure type: unspecified Qualified Code(s): N17.9 - Acute kidney failure, unspecified (2) Combined systolic and diastolic congestive heart failure Heart failure chronicity: acute on chronic Qualified Code(s): I50.43 - Acute on chronic combined systolic (congestive) and diastolic (congestive) heart failure
--- NOTE | 2020-01-07 12:40 | Palliative Care Consultation ---
Date of Consultation January 07, 2020 Assessment & Plan (1) Goals of care, counseling/discussion: -89 year old female patient with PMH CKD stage 3, chronic systolic and diastolic CHF, T2DM, vascular dementia, and restrictive/obstructive lung disease, and others, presented to the hospital two days ago with worsening abdominal and LE edema. Patient was seen by cardiology and PCP for this recently-- her Bumex was increased from 1mg to 3mg/day. However, edema continued to worsen. Upon arrival patient was somnolent/confused, had a creatinine of 2.75 (improved now to 2.18), CT abd/pelvis showed "Volume overload with severe body wall edema, moderate to large bilateral pleural effusions, and ascites, mesenteric edema, question of underlying cirrhosis," and other findings. Patient was started on dobutamine gtt. Her creatinine has improved as well as her mentation, however she has not diuresed as expected. Her weight is essentially unchanged, I/O balance is only 300ml negative. Patient does have some mild dementia at baseline, so it is difficult to know how much insight she has into her illness, but she is continuously asking to go home and wants to get out of the hospital. One of her daughters has been living with her, all daughters help to care for her. Given her age and comorbidities, as well as lack of progress with diuresis despite fairly aggressive medical management, palliative care is consulted to discuss goals of care. -Patient to be seen by palliative MD this afternoon. -Spoke with patient's daughter, Tootie, who has been living with patient. She states that the family is well aware that patient's body is failing. Her functional status and dementia have worsened significantly in the last 7 weeks, and especially in the last couple.They are aware of the heart, kidney, liver and lung disease. -Tootie and the other daughters have reviewed patient's living will. Living will states that when patient has end-stage medical condition, that she does not want any life prolonging measures such as CPR, intubation, dialysis, artificial hydration/nutrition or even abx. Family is prepared to honor patient's wishes. -Given that patient's mentation is a little better, but her medical condition is not, the family plans to bring patient home on hospice. We discussed what home hospice entails. Family will provide 24/ care. Tootie is living with patient presently. -Discussed the use of Roxanol PRN for pain or SOB. Patient is likely to experience SOB with increased fluid retention. Would send script for 5mg PO/SL Q3h PRN. Daughter verbalizes understanding. -Message left for case management to assist with discharge planning. Attending physician updated. -We will continue to follow as needed. (2) Combined systolic and diastolic congestive heart failure: Heart failure chronicity: acute on chronic Qualified Code(s): I50.43 - Acute on chronic combined systolic (congestive) and diastolic (congestive) heart failure (3) Mixed restrictive and obstructive lung disease: Supervising Physician Co-Signing Physician Notes Chart reviewed, patient seen and examined. Collaborated with CARLOS Gutierrez as well as attending physician Dr. Adhikari Patient currently on dobutamine drip, not diuresing well, no change in weight. Increasing Bumex as per cardiology PE: Patient awake, alert, sitting in a chair at bedside. Patient with severe dementia-repeats phrases said to her HEENT: EOMI, hearing within normal limits Respirations: Increased respiratory rate at rest, mild increase with speech, diminished breath sounds bilateral bases CV: Regular rate, 3+ pitting edema left greater than right Abdomen: Soft, nontender Neuro: Oriented to person only, severe dementia. Agree with above note, assessment and plan as per CARLOS Gutierrez. Plan will be to discharge home under hospice care. History of Present Illness Attending Physician: Melita Adhikari MD History of Present Illness This 89 year old female patient with PMH CKD stage 3, chronic systolic and diastolic CHF, T2DM, vascular dementia, and restrictive/obstructive lung disease, and others, presented to the hospital two days ago with worsening abdominal and LE edema. Patient was seen by cardiology and PCP for this recently-- her Bumex was increased from 1mg to 3mg/day. However, edema continued to worsen. Upon arrival patient was somnolent/confused, had a creatinine of 2.75 (improved now to 2.18), CT abd/pelvis showed "Volume overload with severe body wall edema, moderate to large bilateral pleural effusions, and ascites, mesenteric edema, question of underlying cirrhosis," and other findings. Patient was started on dobutamine gtt. Her creatinine has improved as well as her mentation, however she has not diuresed as expected. Her weight is essentially unchanged, I/O balance is only 300ml negative. Patient does have some mild dementia at baseline, so it is difficult to know how much insight she has into her illness, but she is continuously asking to go home and wants to get out of the hospital. One of her daughters has been living with her, all daughters help to care for her. Given her age and comorbidities, as well as lack of progress with diuresis despite fairly aggressive medical management, palliative care is consulted to discuss goals of care. Thank you kindly for this consult. Palliative care team will follow as needed. Allergies Allergy/AdvReac Type Severity Reaction Status Date / Time gabapentin Allergy Verified 01/05/20 15:26 metformin AdvReac Unknown . Verified 01/05/20 15:26 oxycodone AdvReac Unknown HALLUCINATI Verified 01/05/20 15:26 ONS Home Medications Home Medications Medication Instructions Recorded Confirmed Type aspirin 81 mg PO QPM 10/10/18 01/05/20 History metoprolol tartrate 25 mg tablet 12.5 mg PO BID #90 tab 10/14/19 01/05/20 Rx levothyroxine [Euthyrox] 100 mcg PO QPM 11/05/19 01/05/20 History atorvastatin 20 mg PO HS 11/17/19 01/05/20 History melatonin 3 mg PO HS #30 cap 11/19/19 01/05/20 Rx Novolog Flexpen U-100 Insulin 100 See Rx Instructions .ROUTE 12/04/19 01/05/20 Rx unit/mL (3 mL) subcutaneous .COMPLEX PRN #15 ml NS trazodone 50 mg tablet 25 mg PO QPM #30 tab 12/22/19 01/05/20 Rx Lantus Solostar U-100 Insulin 6 unit SC QAM 01/05/20 01/05/20 History benazepril 20 mg PO QAM 01/05/20 01/05/20 History bumetanide 1 mg PO QAM 01/05/20 01/05/20 History duloxetine 20 mg PO QAM 01/05/20 01/05/20 History magnesium See Rx Instructions .ROUTE .COMPLEX 01/05/20 01/05/20 History danizbgw-spy-JD-lycopen-lutein 1 tab PO QDL 01/05/20 01/05/20 History [Centrum Silver] ropinirole 1 mg PO HS 01/05/20 01/05/20 History Patient History Medical History (Updated 01/07/20 @ 12:39 by CARLOS Sharif) Aortic regurgitation (Chronic) Bilateral pleural effusion Cardiomyopathy Chronic diastolic congestive heart failure (Inactive) CKD (chronic kidney disease) stage 3, GFR 30-59 ml/min (Chronic) Dementia Dermatitis, eczematoid Diabetes type 2, controlled Diabetic peripheral neuropathy associated with type 2 diabetes mellitus Elevated brain natriuretic peptide (BNP) level (Inactive) Hearing loss (Inactive) Hypersomnia Intermittent confusion (Inactive) NSTEMI (non-ST elevated myocardial infarction) (Resolved) Seizure-like activity Sleep disorder Vascular dementia Vitamin D deficiency (Inactive) Vitiligo (Inactive) Surgical History Aortic valve replaced H/O lumpectomy Hx of appendectomy S/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 Family History Father Myocardial infarction Unknown Atherosclerosis Brother Diabetes Sister Diabetes Denies family history of Ovarian cancer Prostate cancer Breast cancer Colorectal cancer Social History Preferred Language: Frisian Communication Ability: Effective Granulator Operator Required: No Beliefs That Will Affect Care: None marital status: / Current Living Situation: Family Current Living Situation Comment: family care current occupational status: retired current occupation: worked at [employer] Other Information That Helps Us Care for You: No other: daughter/son-in-law staying with patient in [place] [facility] Feels Safe at Home: Yes Safety Concerns: Feels Safe At This Time Smoking Status: Never smoker Second Hand Exposure: No ; Hx Alcohol Use: No Hx Substance Use: No Results & Data Vital Signs (Past 12 Hours) Vital Signs Temp Pulse Pulse Resp BP BP Pulse Ox 01/07/20 11:45 36.3 C L 77 18 130/54 L 97 01/07/20 07:35 36.4 C L 73 18 132/64 96 01/07/20 07:30 67 01/07/20 07:00 70 01/07/20 06:30 74 01/07/20 06:00 77 01/07/20 05:30 72 01/07/20 05:00 76 01/07/20 04:30 65 01/07/20 04:18 36.4 C L 65 20 138/63 98 01/07/20 04:00 72 01/07/20 03:30 72 01/07/20 03:00 70 01/07/20 02:30 70 01/07/20 02:00 70 01/07/20 01:30 70 01/07/20 01:00 69 Coding Level of Care Code 43629 Inpt Consult Level 3 Diagnoses Goals of care, counseling/discussion Z71.89 Combined systolic and diastolic congestive heart failure I50.43 Heart failure chronicity: acute on chronic Mixed restrictive and obstructive lung disease J44.9; J98.4 Time Spent (min) 70 Time Spent Midlevel A total of 70 minutes spent by this WEB DESIGN INSTRUCTOR in reviewing chart, speaking with attending and palliative physicians, case management, and patient's daughter regarding patient's condition, prognosis and goals of care.
[2020-01-07] MEDS: ASPIRIN 81 MG ECTAB PO SCH ×2 (14:59→15:06)
--- NOTE | 2020-01-07 16:14 | Hospitalist Progress Note ---
Date of Service January 07, 2020 Assessment & Plan (1) Combined systolic and diastolic congestive heart failure: With acute on chronic combined systolic and diastolic CHF Patient with marked volume overload despite escalating doses of bumex as outpatient. EF on echo 11/2019 30-35%. Her baseline CKD (now with superimposed COLTEN) along with ?cirrhosis will also contribute to significant volume status issues. Based on imaging upon admission she also has b/l pleural effusions - at least moderate in size. Per daughter has needed thoracentesis in the past. Her COLTEN is likely due to cardio-renal syndrome. Overall mental status seems improved, remains confused and forgetful which is her baseline - is on home levels of O2 at 2 L, no respiratory distress I's and O's and weight not reflective of effective diuresis still and weight is stable since admission Renal failure improved but remains with JVD and volume overload -dc dobutamine infusion as no mortality benefit and no change -she tore out her IV and pursuing hospice route at home tomorrow--> dc IV Bumex -convert to bumex 3mg po BID Continue beta leesa-is on metoprolol tartrate at home-should be on Toprol-XL for her cardiomyopathy but defer to cardiology -Continue to hold GIULIANA in light of COLTEN although it is improving today. Appreciate cardiology consultation -transfer off telemetry as she is pulling off leads and pursuing hospice (2) Acute kidney failure: Likely due to decompensated CHF improving now with diuresis. See discussion above in CHF. Button Puncher improving today down to 2.1 Daughter believes that her mother would likely not want hemodialysis. CT of the abdomen/pelvis on admission w/o signs of obstruction. Angelo in place. (3) Metabolic encephalopathy: Uncertain etiology but does seem improved with diuresis and dobutamine infusion making volume overload and CHF with possibility. Has been altered for 1-2 months and mentation has steadily declined. Is now awake and alert and eating and out of bed to chair, seems back to base line Normal ammonia-was checked in light of ?cirrhosis on imaging. Normal VBG, which r/o hypercarbia. vitamin B12 level normal TSH most recently was normal. No obvious infectious source - u/a wnl, no pneumonia, etc. Continue supportive care. Daughter states mentation has been the same pre and post cymbalta initiation so unlikely contributing. Patient has been taking ropinirole for long time - doubt contributing. COLTEN could be contributing which is also now improving. (4) Chronic respiratory failure with hypoxia: Initiated on NC O2 last week by her cardiology provider. Likely due to restrictive/obstructive lung disease as well as decompensated CHF. Cont NC O2. (5) Diabetic peripheral neuropathy associated with type 2 diabetes mellitus: Patient w/ very poor appetite which is improved today. On minimal amount of lantus at home - hold for now. Novolog - loose sliding scale. (6) CKD (chronic kidney disease) stage 3, GFR 30-59 ml/min: with superimposed COLTEN see above Improving Continue to follow BMP -Holding GIULIANA inhibitor (7) Hypothyroidism: TSH 11/2019 wnl cont synthroid (8) Mixed restrictive and obstructive lung disease: per records VBG normal (9) S/P TAVR (transcatheter aortic valve replacement): echo 11/2019 with normal valve gradient (10) Vascular dementia: multiple strokes on prior head imaging suspect that mentation issues over the last 1-2 months could be due to worsening dementia -Continue aspirin -continue statin (11) Cirrhosis: Ammonia level normal question of cirrhosis on imaging cardiac cirrhosis? due to VICTORIA? other? (12) CAD (coronary artery disease): no obvious ischemic symptoms by history. troponin elevated minimally and stable x2-- likely myocardial demand ischemia +/- COLTEN. doubt ACS. (13) Elevated troponin: see above (14) Stenosis of aorta: as seen on CT abdomen/pelvis on admission-severe stenosis suspect this is causing inflow disease to legs causing the cold extremities that daughter has noted -Not a good candidate for any intervention at this time -Continue aspirin and statin (15) Swelling of right foot: I suspect right mid-foot gout and right great toe podagra; I do not think this is cellulitis (received IV abx in ER) uric acid level markedly elevated poor candidate for prednisone or NSAIDs follow for now would defer on additional antibiotics for now (16) DVT prophylaxis: heparin 5000 BID daughter updated by phone Disposition-plan for home with hospice tomorrow, can give Roxanol prn SOB Appreciate palliative care consultation Admission and Anticipated Discharge Date Admission Date: January 05, 2020 Anticipated date of discharge: 01/08/20 Subjective Pt confused today. When I came to see her, she was holding her PIV in her hand, after she had pulled it out of her arm. She was sitting in a chair, pleasant, and said hello. Denies pain or other problems. Has no idea where she is or why she is here. Discussed her care with her daughter, Cardiology, and Palliative Care Plans in place for home with hospice tomorrow Tele with NSR, IVCD, PACs, PVCs, short burst atrial tach, rates 60-70s Review of Systems Review of Systems: All systems reviewed & are unremarkable except as noted in HPI & below (feels SOB) Physical Exam Constitutional: WD/WN, vitals as above Eyes: + anicteric sclerae Neck: trachea midline, no thyromegaly Respiratory: normal respiratory effort; no labored breathing Auscultation: + diminished lung sounds (Throughout) and + crackles (Bibasilar); no rhonchi and no wheezes Cardiovascular: RRR, no murmur, no edema Chest (Breasts): Chest: normal inspection of chest Gastrointestinal (Abdomen): normal bowel sounds, soft, nontender, no hepatosplenomegaly Musculoskeletal: Extremities: no cyanosis and no clubbing Skin: no rashes, warm and dry Neurologic: moves all extremities and awake; no focal motor deficits Psychiatric: Orientation: alert, oriented to person, cooperative and + guarded; + not oriented to place and + not oriented to time Affect: + flat affect Insight: + poor insight Lymphatic: no lymphedema Results & Data Results & Data [facility]) Vital Signs (Past 12 Hours) Vital Signs Temp Pulse Pulse Resp BP BP Pulse Ox 01/07/20 15:00 67 01/07/20 11:45 36.3 C L 77 18 130/54 L 97 01/07/20 07:35 36.4 C L 73 18 132/64 96 01/07/20 07:30 67 01/07/20 07:00 70 01/07/20 06:30 74 01/07/20 06:00 77 01/07/20 05:30 72 01/07/20 05:00 76 01/07/20 04:30 65 01/07/20 04:18 36.4 C L 65 20 138/63 98 Laboratory Results 01/07/20 01/07/20 01/07/20 Range/Units 20:40 16:39 11:19 WBC (4.8-10.8) K/uL RBC (4.2-5.4) M/uL Hgb (12.0-16.0) g/dL Hct (37-47) % MCV (80-100) fL MCH (25-34) pg MCHC (32-36) g/dL RDW Std Deviation (36.4-46.3) fL RDW Coeff of Tru (11.5-14.5) % Plt Count (130-400) K/uL MPV (7.4-10.4) fL Immature Gran % (Auto) % Neut % (Auto) % Lymph % (Auto) % [place] % (Auto) % Eos % (Auto) % Baso % (Auto) % Immature Gran # (Auto) (0.00-0.02) K/uL Neut # (Auto) (1.4-6.5) K/uL Lymph # (Auto) (1.2-3.4) K/uL [place] # (Auto) (0.11-0.59) K/uL Eos # (Auto) (0-0.5) K/uL Baso # (Auto) (0-0.2) K/uL Sodium (136-145) mmol/L Potassium (3.5-5.1) mmol/L Chloride (98-107) mmol/L Carbon Dioxide (21-32) mmol/L Anion Gap (3-11) BUN (7-18) mg/dl Creatinine (0.6-1.2) mg/dl Est Cr Clr Drug Dosing ml/min Est GFR ( Amer) Est GFR (Non-Af Amer) BUN/Creatinine Ratio (10-20) Glucose (70-99) mg/dl POC Glucose 230 H 110 H 170 H (70-99) mg/dl Calcium (8.5-10.1) mg/dl Magnesium (1.8-2.4) mg/dl 01/07/20 01/07/20 01/07/20 Range/Units 07:18 06:57 06:57 WBC 6.55 (4.8-10.8) K/uL RBC 4.23 (4.2-5.4) M/uL Hgb 13.2 (12.0-16.0) g/dL Hct 40.2 (37-47) % MCV 95.0 (80-100) fL MCH 31.2 (25-34) pg MCHC 32.8 (32-36) g/dL RDW Std Deviation 56.4 H (36.4-46.3) fL RDW Coeff of Tru 16.9 H (11.5-14.5) % Plt Count 132 (130-400) K/uL MPV 11.7 H (7.4-10.4) fL Immature Gran % (Auto) 0.2 % Neut % (Auto) 76.7 % Lymph % (Auto) 10.8 % [place] % (Auto) 10.7 % Eos % (Auto) 1.1 % Baso % (Auto) 0.5 % Immature Gran # (Auto) 0.01 (0.00-0.02) K/uL Neut # (Auto) 5.03 (1.4-6.5) K/uL Lymph # (Auto) 0.71 L (1.2-3.4) K/uL [place] # (Auto) 0.70 H (0.11-0.59) K/uL Eos # (Auto) 0.07 (0-0.5) K/uL Baso # (Auto) 0.03 (0-0.2) K/uL Sodium 142 (136-145) mmol/L Potassium 4.0 (3.5-5.1) mmol/L Chloride 106 (98-107) mmol/L Carbon Dioxide 33 H (21-32) mmol/L Anion Gap 3.0 (3-11) BUN 65 H (7-18) mg/dl Creatinine 2.18 H (0.6-1.2) mg/dl Est Cr Clr Drug Dosing 14.1 ml/min Est GFR ( Amer) 22.7 Est GFR (Non-Af Amer) 19.6 BUN/Creatinine Ratio 29.8 H (10-20) Glucose 117 H (70-99) mg/dl POC Glucose 109 H (70-99) mg/dl Calcium 8.5 (8.5-10.1) mg/dl Magnesium 2.5 H (1.8-2.4) mg/dl PG Care Time/CCT Total # of Minutes Spent Total Time Spent with Patient: Total time spent is greater than 50% in coordination of care (as documented) at patient's floor/unit and/or counseling patient: Coding Level of Care Code 49700 Subseq Hosp Care Lvl 3 Diagnoses Combined systolic and diastolic congestive heart failure I50.43 Heart failure chronicity: acute on chronic Acute kidney failure N17.9 Acute renal failure type: unspecified Metabolic encephalopathy G93.41 Chronic respiratory failure with hypoxia J96.11 Diabetic peripheral neuropathy associated with type 2 diabetes mellitus E11.42 CKD (chronic kidney disease) stage 3, GFR 30-59 ml/min N18.3 Hypothyroidism E03.9 Hypothyroidism type: acquired Mixed restrictive and obstructive lung disease J44.9; J98.4 S/P TAVR (transcatheter aortic valve replacement) Z95.2 Vascular dementia F01.50 Dementia behavioral disturbance: without behavioral disturbance Cirrhosis K74.69 Hepatic cirrhosis type: other cirrhosis CAD (coronary artery disease) I25.10 Associated angina: without angina Coronary Disease-Associated Artery/Lesion type: [place] artery [place] vs. transplanted heart: [place] heart Elevated troponin R79.89 Stenosis of aorta Q25.3 Swelling of right foot M79.89 DVT prophylaxis Z29.9 (1) Vascular dementia Dementia behavioral disturbance: without behavioral disturbance Qualified Code(s): F01.50 - Vascular dementia without behavioral disturbance (2) Acute kidney failure Acute renal failure type: unspecified Qualified Code(s): N17.9 - Acute kidney failure, unspecified (3) Combined systolic and diastolic congestive heart failure Heart failure chronicity: acute on chronic Qualified Code(s): I50.43 - Acute on chronic combined systolic (congestive) and diastolic (congestive) heart failure (4) CAD (coronary artery disease) Associated angina: without angina Coronary Disease-Associated Artery/Lesion type: [place] artery [place] vs. transplanted heart: [place] heart Qualified Code(s): I25.10 - Atherosclerotic heart disease of [place] coronary artery without angina pectoris (5) Hypothyroidism Hypothyroidism type: acquired Qualified Code(s): E03.9 - Hypothyroidism, unspecified (6) Cirrhosis Hepatic cirrhosis type: other cirrhosis Qualified Code(s): K74.69 - Other cirrhosis of liver
[2020-01-07] MEDS: BUMETANIDE 1 MG TAB PO SCH (19:36)
[2020-01-07] MEDS ORDERED: TRAZODONE HCL 50 MG TAB PO SCH (20:00)
[2020-01-07] MEDS ORDERED: BUMETANIDE 3 MG in SYRINGE 0 ML IV SCH (21:00)
[2020-01-07] MEDS ORDERED: ATORVASTATIN 20 MG TAB PO SCH (21:00)
[2020-01-07] MEDS ORDERED: OLANZapine 10 MG/2.1 ML SDV IM STA (21:05)
[2020-01-07] MEDS: MELATONIN 3 MG TAB PO SCH (21:13)
[2020-01-07] MEDS: ROPINIROLE HCL 1 MG TABLET PO SCH (21:17)
[2020-01-07] MEDS: LEVOTHYROXINE SODIUM 100 MCG TABLET PO SCH (21:18)
[2020-01-07] MEDS: ARTIFICIAL TEARS OP SCH (22:28)
[2020-01-08 00:20] VITALS: TEMP 97.7
[2020-01-08 06:24] LABS: BUN Creatinine Ratio 31.1 (10-20); Calcium 8.9 mg/dl (8.5-10.1); Est GFR (African American) 26.5; Est GFR (Non-African American) 22.8; Magnesium 2.4 mg/dl (1.8-2.4); Potassium 4.1 mmol/L (3.5-5.1)
[2020-01-08 07:46] VITALS: O2SAT 95
[2020-01-08] MEDS: BUMETANIDE 1 MG TAB PO SCH (08:54)
[2020-01-08] MEDS: DULOXETINE HCL 20 MG CAP PO SCH (08:54)
[2020-01-08] MEDS: HEPARIN SOD 5,000 UNIT/0.5 ML VIAL SQ SCH ×2 (08:55→09:07)
[2020-01-08] MEDS: METOPROLOL TARTRATE 25 MG TAB PO SCH (08:55)
[2020-01-08] MEDS: INSULIN ASPART 100 UNITS/ML 3 ML PEN SC SCH (08:56)
--- NOTE | 2020-01-08 10:32 | Cardiology Progress Note ---
Date of Service January 08, 2020 Assessment & Plan (1) Combined systolic and diastolic congestive heart failure: (2) Cardiomyopathy: (3) CKD (chronic kidney disease) stage 3, GFR 30-59 ml/min: (4) Palliative care status: Palliative status noted. Patient is actually doing fairly well clinically, no longer appears hypervolemic, renal function improving. Would discharge her on the higher dose of bumetanide (3 mg twice daily) to maintain her current volume status. Even if she were to develop progressive renal dysfunction, this would be preferable to volume overload and the associated dyspneic symptoms in a palliative setting. Thank you for allowing us to participate in the care of this patient. Admission and Anticipated Discharge Date Admission Date: January 05, 2020 Anticipated date of discharge: 01/08/20 Subjective Patient had no complaints, she was lying flat and was comfortable. She denied any chest pain or dyspnea. Weight unchanged from yesterday. I/O slightly negative (-385 mL). Creatinine further improved (dropped from 2.18 to 1.92). She is transitioning to hospice care. Dobutamine infusion discontinued yesterday afternoon. Physical Exam Physical Exam: Elderly white female lying comfortably. Afebrile. BP normotensive to minimally hypertensive. Pulse 60-90 and regular. Respirations 20 but unlabored. Skin: No ecchymoses or generalized lesions. HEENT: Unremarkable. Neck: Jugular venous pulse difficult to assess due to large V waves, appears only mildly elevated today. Bilateral transmitted murmur heard in carotids. Lungs: Very faint basilar crackles, generally clear. No wheezes. Cardiac: Regular rhythm with 2/6 basal systolic ejection murmur rating to the carotids and 2/6 apical holosystolic murmur rating to the axilla. No diastolic murmur or distant gallop. Abdomen: Soft nontender. Extremities: Trace pretibial edema (right greater than left), pulses intact. Neurologic: Answers simple questions appropriately, no spontaneous conversation, grossly nonfocal. Results & Data ([facility]) Vital Signs (Past 12 Hours) Vital Signs Temp Pulse Resp BP Pulse Ox 01/08/20 07:45 97.7 F 88 20 146/59 H 95 01/07/20 23:47 97.7 F 93 H 16 148/55 H 100 Laboratory Results 01/08/20 05:18 Potassium 4.1 BUN 60 H Creatinine 1.92 H PG Care Time/CCT Total # of Minutes Spent Total Time Spent with Patient: Total time spent is greater than 50% in coordination of care (as documented) at patient's floor/unit and/or counseling patient: Coding Level of Care Code 67495 Subseq Hosp Care Lvl 3 Diagnoses Combined systolic and diastolic congestive heart failure I50.43 Heart failure chronicity: acute on chronic Cardiomyopathy I42.9 CKD (chronic kidney disease) stage 3, GFR 30-59 ml/min N18.3 Palliative care status Z51.5 (1) Combined systolic and diastolic congestive heart failure Heart failure chronicity: acute on chronic Qualified Code(s): I50.43 - Acute on chronic combined systolic (congestive) and diastolic (congestive) heart failure
--- NOTE | 2020-01-08 12:35 | Discharge Summary ---
Date of Service January 08, 2020 Admission HPI Per Admitting Provider 89yo female with CKD stage 3, chronic systolic and diastolic CHF, T2DM, vascular dementia, and restrictive/obstructive lung disease who presents with her daughter due to altered mental status and worsening edema of the legs and abdomen. The edema has worsened despite escalating doses of bumex (initially was on 1mg, now up to 3mg/day). Seen by PCP and cardiology (Nicolas Guilherme) last week for these issues. During office visit on Saturday with Mr Vanegas she was noted to be hypoxic and was prescribed NC O2 2 liters. About 2 weeks ago she was placed on cymbalta 20mg daily by Dr Her for neuropathic pain of legs. Daughter came up from [place] to live with her mother and she reports several weeks of generalized decline and worsening confusion. Walking/ambulation has become more challenging, and since the weekend her walking has gotten very severe. Prior to that had been using a walker on a limited basis. Last her family noted her right foot to be red and modestly warm. Appetite has been very poor for several weeks. Lastly, she has been very sleepy. Sleeping 12+ hours at night and long naps during the day. Principal Diagnosis Acute on chronic systolic CHF Discharge Exam Constitutional WD/WN, vitals as above Eyes + anicteric sclerae Neck trachea midline, no thyromegaly Respiratory normal respiratory effort; no labored breathing Auscultation: + diminished lung sounds (Throughout); no rhonchi and no wheezes Cardiovascular RRR, no murmur, no edema Chest (Breasts) Chest: normal inspection of chest Gastrointestinal (Abdomen) normal bowel sounds, soft, nontender, no hepatosplenomegaly Musculoskeletal Extremities: no cyanosis and no clubbing Skin no rashes, warm and dry Neurologic moves all extremities and awake; no focal motor deficits Psychiatric Orientation: alert, oriented to person and + guarded; + not oriented to place and + not oriented to time Affect: + flat affect Insight: + poor insight Lymphatic no lymphedema Discharge Data Allergies Allergy/AdvReac Type Severity Reaction Status Date / Time gabapentin Allergy Verified 01/05/20 15:26 metformin AdvReac Unknown . Verified 01/05/20 15:26 oxycodone AdvReac Unknown HALLUCINATI Verified 01/05/20 15:26 ONS Consultations 01/05/20 16:42 ED Decision to Admit Stat 01/05/20 20:55 Consult Cardiology Routine 01/07/20 10:45 Consult Palliative Care Routine Ordered Studies 01/05/20 14:30 CT abd pelvis wo con Stat 01/05/20 14:31 CT head/brain wo con Stat Hospital Course (1) Combined systolic and diastolic congestive heart failure: With acute on chronic combined systolic and diastolic CHF Patient with marked volume overload despite escalating doses of bumex as outpatient. EF on echo 11/2019 30-35%. Her baseline CKD (now with superimposed COLTEN) along with ?cirrhosis will also contribute to significant volume status issues. Based on imaging upon admission she also has b/l pleural effusions - at least moderate in size. Per daughter has needed thoracentesis in the past. Her COLTEN is likely due to cardio-renal syndrome. Overall mental status seems improved, remains confused and forgetful which is her baseline - is on home levels of O2 at 2 L, no respiratory distress I's and O's and weight not reflective of effective diuresis still and weight is stable since admission, not really diuresing but does not seem lethargic or dyspneic Renal failure improved but remains with JVD and volume overload -dcd dobutamine infusion as no mortality benefit and no change -she tore out her IV and pursuing hospice route at home today -converted to bumex 3mg po BID Continue beta leesa-is on metoprolol tartrate at home-should be on Toprol-XL for her cardiomyopathy but defer to cardiology -Continue to hold GIULIANA in light of COLTEN although it is improving today. Appreciate cardiology consultation-no need to follow up as outpt as going on hospice (2) Acute kidney failure: Likely due to decompensated CHF improving now with diuresis. See discussion above in CHF. Medical Records Auditor improving today down to 1.92 Daughter believes that her mother would likely not want hemodialysis. CT of the abdomen/pelvis on admission w/o signs of obstruction. Angelo in place-removed prior to discharge (3) Metabolic encephalopathy: Uncertain etiology but does seem improved with diuresis and dobutamine infusion making volume overload and CHF with possibility. Has been altered for 1-2 months and mentation has steadily declined. Is now awake and alert and eating and out of bed to chair, seems back to baseline Normal ammonia-was checked in light of ?cirrhosis on imaging. Normal VBG, which r/o hypercarbia. vitamin B12 level normal TSH most recently was normal. No obvious infectious source - u/a wnl, no pneumonia, etc. Continue supportive care. Daughter states mentation has been the same pre and post cymbalta initiation so unlikely contributing. Patient has been taking ropinirole for long time - doubt contributing. COLTEN could be contributing which is also now improving. (4) Chronic respiratory failure with hypoxia: Initiated on NC O2 last week by her cardiology provider. Likely due to restrictive/obstructive lung disease as well as decompensated CHF. Cont NC O2. (5) Diabetic peripheral neuropathy associated with type 2 diabetes mellitus: Patient w/ very poor appetite which is improved today. 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 due to VICTORIA? other? No further workup or surveillance needed (12) CAD (coronary artery disease): no obvious ischemic symptoms by history. troponin elevated minimally and stable x2-- likely myocardial demand ischemia +/- COLTEN. doubt ACS. (13) Elevated troponin: see above (14) Stenosis of aorta: as seen on CT abdomen/pelvis on admission-severe stenosis suspect this is causing inflow disease to legs causing the cold extremities that daughter has noted -Not a good candidate for any intervention at this time -Continue aspirin and statin (15) Swelling of right foot: I suspect right mid-foot gout and right great toe podagra; I do not think this is cellulitis (received IV abx in ER) uric acid level markedly elevated poor candidate for prednisone or NSAIDs follow for now would defer on additional antibiotics for now (16) DVT prophylaxis: heparin 5000 BID Disposition-plan for home with hospice today--> can give Roxanol prn SOB Appreciate palliative care consultation Total Time Total Time Spent Total Time Spent (In Minutes): 35 min Total Time Includes: Examination of the Patient, Discharge Planning and Medication Reconciliation Discharge Plan Discharge Items Patient Disposition: Hospice - Home Reason For Visit: ACUTE/CHRONIC CHF, ACUTE/CHRONIC KIDNEY FAILURE, Discharge Diagnosis: Acute on chronic combined systolic and diastolic severe CHF, anasarca, acute kidney injury, acute metabolic encephalopathy, dementia Condition on Discharge: Fair Activity: Resume your previous activity Bathing: No limitations Exercise/Sports: As tolerated Weightbearing: Full weightbearing Non-emergency contact: Primary Care Provider Call non-emergency contact if: you have any medication questions and your symptoms worsen Follow-up/Referrals: Lottie Winn MD [Primary Care Provider] - Diet: Low Sodium (2gm) Addtl Attending Provider Instructions: You are being discharged home with hospice. Please continue the medications as prescribed. You can take liquid Roxanol (morphine sulfate solution) as needed for shortness of breath. Call your Primary Care doctor if any of the following symptoms or problems start or get worse: * Shortness of breath or difficulty breathing * Wake up at night short of breath * Chest pain * Cough * Swelling of your hands, feet, or legs * More fatigued or tired with your normal activity * Palpitations - sudden fast heart beats WEIGHT * Weigh yourself every morning after using the bathroom. * Use the same scale. * Wear the same amount of clothing. * Write your weight down on a chart. * Call your Primary Care doctor if you gain more than 2-3 pounds in 1-2 days. MEDICATIONS * Use this discharge instruction sheet for medication instructions. * Take your medications at the time your doctor ordered. * Do not skip a dose of your medicines. * If you miss a dose of medicine, take it as soon as possible, but DO NOT DOUBLE A DOSE. * Read your medicine information when you get home. * Know all of the side effects of your medicine. If in doubt, ask your pharmacist * Call your Primary Care doctor's office if you have any side effects. * Be sure all of your doctors know what medicine and herbs you take (including cold, flu, and herbal medicine). Take the following with you to your follow-up doctor appointments: * Weight Chart * Medication List * List of questions Do not drink excessive alcohol, beer or wine. Pending Studies at Discharge: Yes (Final blood culture results-no growth to date) Stand-Alone Forms: My [facility] Medications and DC Order Prescriptions: New bumetanide 2 mg tablet 3 mg PO BID Qty: 90 RF: 0 morphine concentrate 100 mg/5 mL (20 mg/mL) solution 5 mg PO Q1H PRN (Reason: breathlessness or pain) Qty: 30 RF: 0 Continued trazodone 50 mg tablet 25 mg PO QPM Qty: 30 RF: 2 metoprolol tartrate 25 mg tablet 12.5 mg PO BID Qty: 90 RF: 3 insulin aspart U-100 [Novolog Flexpen U-100 Insulin] 100 unit/mL (3 mL) insulin pen See Rx Instructions .ROUTE .COMPLEX PRN (Reason: diabetes) Qty: 15 RF: 0 aspirin 81 mg Tablet,Delayed Release (Dr/Ec) 81 mg PO QPM RF: 0 atorvastatin 20 mg tablet 20 mg PO HS RF: 0 melatonin 3 mg capsule 3 mg PO HS Qty: 30 RF: 1 duloxetine 20 mg capsule,delayed release(DR/EC) 20 mg PO QAM RF: 0 Lantus Solostar U-100 Insulin 100 unit/mL (3 mL) insulin pen 6 unit SC QAM RF: 0 ropinirole 1 mg Tablet 1 mg PO HS RF: 0 Centrum Silver 0.4-300-250 mg-mcg-mcg Tablet 1 tab PO QDL RF: 0 levothyroxine [Euthyrox] 100 mcg tablet 100 mcg PO QPM RF: 0 Discontinued magnesium 250 mg Tablet See Rx Instructions .ROUTE .COMPLEX RF: 0 bumetanide 1 mg tablet 1 mg PO QAM RF: 0 benazepril 20 mg tablet 20 mg PO QAM RF: 0 Discharge Orders: Discharge Order (Routine); Ordered 01/08/20 Ordered By: Melita Adhikari Admission Data Admit Date/Time: 01/05/20 17:40 Attending Provider: Melita Adhikari Admit Provider: Rene Alonzo Primary Care Provider: Lottie Winn Other Providers: Rene Alonzo ; Joaquim Adam ; Jaclyn Meng Other Interventions: Discharge Summary Assessment (RN) Last Done: 01/08/20 12:35 DC Date/Time DO NOT enter until pt leaves facility: 01/08/20 13:55 Coding Level of Care Code D/C Day Management >30 mins Diagnoses Combined systolic and diastolic congestive heart failure I50.43 Heart failure chronicity: acute on chronic Acute kidney failure N17.9 Acute renal failure type: unspecified Metabolic encephalopathy G93.41 Chronic respiratory failure with hypoxia J96.11 Diabetic peripheral neuropathy associated with type 2 diabetes mellitus E11.42 CKD (chronic kidney disease) stage 3, GFR 30-59 ml/min N18.3 Hypothyroidism E03.9 Hypothyroidism type: acquired Mixed restrictive and obstructive lung disease J44.9; J98.4 S/P TAVR (transcatheter aortic valve replacement) Z95.2 Vascular dementia F01.50 Dementia behavioral disturbance: without behavioral disturbance Cirrhosis K74.69 Hepatic cirrhosis type: other cirrhosis CAD (coronary artery disease) I25.10 Associated angina: without angina Coronary Disease-Associated Artery/Lesion type: [place] artery [place] vs. transplanted heart: [place] heart Elevated troponin R79.89 Stenosis of aorta Q25.3 Swelling of right foot M79.89 DVT prophylaxis Z29.9
[2020-01-08 12:36] VITALS: BP 130/54; PULSE 77
== END 2020-01-08 13:55 | disposition hospice, home (50) | DRG 291 ==
LOC: ED 14:00 → SUATTDRO 17:40 → 1E 17:40 → 2S 01-06 22:43 → 3E 01-07 16:11